=== PATIENT | male | born 1935 | race Caucasian/White ===

== ENCOUNTER 2023-08-07 14:29 | Outpatient (OUT) | payer MEDICARE, SELFPAY ==
--- NOTE | 2023-08-07 15:20 | P.CN_ITS ---
Consult Note: HPI Data of Consult Patient: new to practice Consult date: 08/07/23 Requesting Physician: Alberto Pacheco MD Primary Care Provider: JERMAIN MENCHACA Consult Narrative Reason for consult: low back, right hip and leg pain Narrative: 87yom who presents for evaluation. longstanding low back and right hip and leg pain. lumbar mri shows severe multilevel foraminal narrowing, as well as severe facet arthropathy. continues in series of provider directed home exercises >6 weeks, without benefit. uses otc pain meds. denies adverse med side effects. cc:: CC: Alberto Pacheco MD Review of Systems ROS Status of ROS 10 or more systems reviewed and unremark able except as noted in history and below Exam Narrative Exam Narrative: Psych-alert and oriented x 3. Attentive and appropriate, constitutionally normal, displays normal mood and affect per situation. There are no obvious deficits in memory, reasoning, or intellect.? Skin-no obvious rashes, bruising, erythema noted to the patient's area of pain.? Extremities- extremities are warm with minimal edema and palpable pulses. Lumbar-tenderness to palpation noted in the lumbar spine and paraspinal musculature. Pain is elicited with flexion, extension, and lateral rotation of the lumbar spine. Range of motion is diminished with these motions. Facet loading maneuvers are positive.? Strength-noted to be unremarkable with the exception of decreased strength rated at 4 out of 5 in right quadriceps femoris, anterior tibialis. Sensory-no notable sensory deficits in the bilateral lower extremities to touch or pinprick in all dermatomal distributions with the exception to decreased sensation to the right L4, 5 dermatomal distribution Sacroiliac - tender over right PSIS. Positive Eduardo's on right. Positive thigh thrust on right. Coordination remains intact.? Gait remains non-antalgic. 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 failed conservative measures, as noted. imaging reviewed, as noted. given symptoms and imaging, prudent to attempt right l4-5, l5-s1 tfesi under fluoroscopic guidance. may even benefit from right SIJ injection. he is in agreement. meds reviewed, no changes. follow up after procedure.
== END 2023-08-07 14:30 | disposition home or self-care (01) ==
LOC: PM 14:30
PROVIDERS: PCP Family Medicine; Visit Provider Anesthesiology
DX: M48.062 Spinal stenosis, lumbar region with neurogenic claudication (principal); M53.3 Sacrococcygeal disorders, not elsewhere classified; M47.816 Spondylosis without myelopathy or radiculopathy, lumbar region
CPT/HCPCS: G0463

== ENCOUNTER 2023-08-14 07:15 | Day surgery (SDC) | payer MEDICARE, SELFPAY ==
--- OUTSIDE RECORDS SUMMARY | 2023-08-14 07:18 | XMS_ITS ---
Patient Summarization (C-CDA 2.1 CCD) Created on: August 14, 2023 ENRIQUE MIKE : 1935 Sex: Male Author Organization Sample organization Care Team Providers Care [employer]f [employer] Worker Name Role Phone NIKOLAI, DR ALY Attending Unavailable NIKOLAI, DR ALY Primary Care Unavailable NIKOLAI, DR ALY Admitting Unavailable NIKOLAI, JERMAIN Blas Primary Care Unavailable KATHE MEZA Attending Unavailable ALEXUS CLINTON Admitting Unavailable AGUSTIN GARCIA Attending Unavailable AGUSTIN GARCIA Referring Unavailable NIKOLAI, JERMAIN Blas Primary Care Unavailable NIKOLAIJERMAIN Attending Unavailable ABEL SOLIS Attending Unavailable NIKOLAI, JERMAIN Blas Referring Unavailable ABEL SOLIS Attending Unavailable SANGEETA, ENRIQUE Nelson Attending Unavailable JERMAIN MENCHACA Attending Unavailable SANGEETA, ENRIQUE Nelson Attending Unavailable ENRIQUE RUTHERFORD Referring Unavailable ENRIQUE RUTHERFORD Referring Unavailable ENRIQUE RUTHERFORD Attending Unavailable Encounters Encounter Date Encounter Type Care Provider Facility Start: 08-01-2023 End: 08-01-2023 ambulatory ENRIQUE RUTHERFORD Not Available Start: 07-27-2023 End: 07-27-2023 ambulatory ENRIQUE RUTHERFORD Not Available Start: 07-11-2023 End: 07-11-2023 ambulatory ENRIQUE RUTHERFORD Not Available Start: 06-13-2023 End: 06-13-2023 ambulatory JERMAIN Blas NIKOLAI Not Available Start: 06-06-2023 End: 06-06-2023 ambulatory ENRIQUE RUTHERFORD Not Available Start: 06-01-2023 End: 06-03-2023 Emergency department patient visit AGUSTIN GARCIA [facility] Start: 06-01-2023 End: 06-02-2023 ambulatory JERMAIN Wan NIKOLAI [facility] Start: 05-04-2023 End: 05-04-2023 ambulatory ABEL SOLIS Not Available Start: 04-20-2023 End: 04-20-2023 ambulatory ABEL SOLIS Not Available Start: 04-10-2023 End: 04-10-2023 ambulatory JERMAIN MENCHACA Not Available Start: 12-17-2021 End: 12-17-2021 ambulatory JERMAIN MENCHACA Facility: Payers Date Payer Category Payer Medicare [id number] 1958 Unknown [id number] 1935 Unknown [id number] 2.16.84 [id number] 1935 Unknown [id number] 2.16.8 [id number] 1935 Unknown [id number] 2.16.8 40.1.650088.3.579.2.1286 1935 Unknown [id number] 2.16.8 40.1.935397.3.579.2.1286 1935 Unknown [id number] 2.16.84 0.1.871636.3.579.2.1259 1935 Unknown [id number] 2.16.84 0.1.879153.3.579.2.1259 1935 Unknown [id number] 2.16.84 0.1.804400.3.579.2.1259 1935 Unknown [id number] 2.16.84 0.1.312757.3.579.2.1259 1935 Unknown [id number] 2.16.84 0.1.702655.3.579.2.1259 1935 Unknown [id number] 2.16.84 0.1.954804.3.579.2.1259 1935 Unknown [id number] 2.16.84 0.1.890346.3.579.2.125 1935 Unknown [id number] 2.16.84 0.1.850724.3.579.2.1259 1935 Unknown [id number] 2.16.84 0.1.820479.3.579.2.1259 Problems Problem Classification Problem Date Documented Date Episodic/Chronic Acute cerebrovascular disease (1 source) Cerebral infarction, unspecified; Translations: [Cerebral infarction, unspecified] Onset: 06-01-2023 Chronic Acute cerebrovascular disease (2 sources) Acute cerebrovascular disease Onset: 06-01-2023 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; Translations: [Embolism and thrombosis of unspecified artery] Onset: 06-02-2023 Chronic Genitourinary symptoms and ill-defined conditions (4 sources) Retention of urine, unspecified; Translations: [RETENTION OF URINE UNSPECIFIED] Onset: 12-17-2021 Episodic Heart valve disorders (1 source) Unspecified abnormalities of heart beat; Translations: [Unspecified abnormalities of heart beat] Onset: 06-01-2023 Episodic Retinal detachments; defects; vascular occlusion; and retinopathy (1 source) Unspecified retinal vascular occlusion; Translations: [Unspecified retinal vascular occlusion] Onset: 06-01-2023 Chronic Transient cerebral ischemia (1 source) Transient cerebral ischemic attack, unspecified; Translations: [Transient cerebral ischemic attack, unspecified] Onset: 06-02-2023 Chronic Results Test Name Value Interpretation Reference Range Facility MR LUMBAR SPINE W AND WO CON TRASTon 07-27-2023 MR LUMBAR SPINE W AND WO CONTRAST EXAM: MR LUMBAR SPINE W AND WO CONTRAST History: low back pain Technique: Multiplanar multisequence MRI of the lumbar spine was obtained without intravenous contrast. Comparison: Findings: The conus medullaris ends normally. Mild levocurvature. The vertebral body heights are well maintained. There is no aggressive bone marrow signal abnormality. Postsurgical changes of posterior decompression at L3-L4 and L4-L5. No pathologic enhancement. No soft tissue or epidural fluid collection. Disc desiccation throughout the lumbar spine. Moderate intervertebral disc height loss at L4-L5 and mild intervertebral disc loss at L5-S1. Chronic severe compression deformity of L1. Multilevel degenerative plate changes with spurring. L1-L2: Small disc bulge. Mild facet arthropathy. Mild spinal canal stenosis. Moderate bilateral neural foraminal stenosis. L2-L3: Small disc bulge with small superimposed central disc protrusion. Mild facet arthropathy. Ligamentum flavum thickening. Moderate to severe spinal canal stenosis. Moderate bilateral neural foraminal stenosis. L3-L4: Minimal anterolisthesis of L3 on L4 secondary to advanced facet arthropathy. Small disc bulge. Severe bilateral neural foraminal stenosis. No spinal canal stenosis. L4-L5: Small disc bulge. Mild facet arthropathy. Moderate bilateral neural foraminal stenosis. No spinal canal stenosis. L5-S1: Small disc bulge with small superimposed central disc protrusion. Moderate facet arthropathy. Severe bilateral neural foraminal stenosis. No spinal canal stenosis. Visualized paravertebral soft tissues appear within normal limits. Round hyperintense T2 structures of both kidneys are again identified and are most patible with renal cysts. IMPRESSION: Postsurgical and degenerative changes of the lumbar spine as detailed. ELECTRONICALLY SIGNED BY: Jone Conrad, DO Normal Not Available Comment on above: Order Comment: MRI l umbar spine with and without. MYLA Lane. Pt had CMP labs 06/01/[address] [facility]. HX lumbar laminectomy 12/01/21 MR BRAIN W WO CONTon 024 MR BRAIN W WO CONT MR BRAIN W WO CONT HISTORY: An 87-year-old male with the history of the acute neurological deficit. Stroke is suspected. TECHNIQUE: Multiplanar and multisequence MRI examination of brain is performed without and with intravenous contrast administration. COMPARISON: Comparison is made with the CT scan of brain of 06/01/2023. FINDINGS: The ventricular system is normal in size and configuration. There is mild degree of generalized atrophy. There is normal differentiation of manzo and white matters. There are scattered foci of signal abnormality in the deep white matter supratentorially consistent with minimal small vessels ischemic change. Diffusion-weighted study demonstrates no evidence of restricted diffusion to suggest acute or subacute age of infarction. There is no evidence of intracranial mass, hemorrhage or acute pathology. The cerebellum and brainstem are unremarkable. No mass effect, midline shift of the structures or extra-axial fluid collections are noted. Postcontrast examination reveals no abnormal meningeal or parenchymal enhancement. Both distal internal carotid and vertebrobasilar arteries are patent. Dural venous sinuses are patent. Minimal mucosal thickening is seen in the right maxillary sinus. Other paranasal sinuses and mastoid air cells are clear. IMPRESSION: * No evidence of restricted diffusion to suggest acute or subacute age of infarction. * Mild small vessels ischemic change in the deep white matter supratentorially. * No evidence of intracranial mass, abnormal enhancing lesion or acute pathology. * Mild degree of cortical atrophy. Finalized by hPil Mcleod MD on 06/02/2023 7:34 AM Normal [facility] CBC AND AUTO DIFFon 06-01-19 24 ABSOLUTE BASOPHIL 0.0 X10E9/L Normal 0.0-0.2 [facility] Comment on above: Performed By: #### 2 4331-1 #### [facility] ([id number]) [address], [address] [place] [address] #### CMP, PINR, 73388-3, 69842-2, THYR, 93592-7, CBCA, 96375-7 #### [facility] ([id number]) [address] [place] [address] 32926 ABSOLUTE NEUTROPHIL 2.9 X10E9/L Normal 1.5-6.6 [facility] Comment on above: Performed By: #### 2 4331-1 #### [facility] ([id number]) [address] [facility] [address], [address] [place] [address] #### CMP, PINR, 10935-4, 10410-8, THYR, 52451-3, CBCA, 84048-6 #### [facility] ([id number]) [address] [place] [address] 49673 Basophils/100 WBC (Bld) 0.7 % Normal [facility] Comment on above: Performed By: #### 2 4331-1 #### [facility] ([id number]) [address], [address] [place] [address] #### CMP, PINR, 14856-3, 39549-0, THYR, 72557-3, CBCA, 43203-3 #### [facility] ([id number]) [address] [place] [address] 56084 Eosinophils (Bld) [#/Vol] 0.1 10*3/uL Normal 0.0-0.4 [facility] Comment on above: Performed By: #### 2 4331-1 #### [facility] ([id number]) [address], [address] [place] [address] #### CMP, PINR, 00661-7, 55615-1, THYR, 27286-6, CBCA, 24636-6 #### [facility] ([id number]) [address] [place] [address] 67001 Eosinophils/100 WBC (Bld) 1.5 % Normal [facility] Comment on above: Performed By: #### 2 4331-1 #### [facility] ([id number]) [address] [facility] [address], [address] [place] [address] #### CMP, PINR, 46536-2, 84426-6, THYR, 70955-9, CBCA, 10003-4 #### [facility] ([id number]) [address] [place] [address] 75818 Erythrocyte distribution width (RBC) [Ratio] 12.5 % Normal 11.5-15.0 [facility] Comment on above: Performed By: #### 2 4331-1 #### [facility] ([id number]) [address] [facility] [address] [address], [address] [place] [address] #### CMP, PINR, 40683-9, 02415-6, THYR, 20168-7, CBCA, 84992-5 #### [facility] ([id number]) [address] [place] [address] 46468 Hematocrit (Bld) [Volume fraction] 39.5 % Normal 39-49 [facility] Comment on above: Performed By: #### 2 4331-1 #### [facility] ([id number]) [address] [facility], [address] [place] [address] #### CMP, PINR, 98746-2, 18767-6, THYR, 69869-0, CBCA, 46166-1 #### [facility] ([id number]) [address] [place] [address] 02093 Hemoglobin (Bld) [Mass/Vol] 13.7 g/dL Normal 13.0-17.0 [facility] Comment on above: Performed By: #### 2 4331-1 #### [facility] ([id number]) [address], [address] [place] [address] #### CMP, PINR, 86224-4, 80022-9, THYR, 14990-3, CBCA, 96138-1 #### [facility] ([id number]) [address] [place] [address] 70233 Lymphocytes (Bld) [#/Vol] 1.6 10*3/uL Normal 1.0-3.5 [facility] Comment on above: Performed By: #### 2 4331-1 #### [facility] ([id number]) [address], [address] [place] [address] #### CMP, PINR, 22162-4, 23172-5, THYR, 77689-5, CBCA, 44770-0 #### [facility] ([id number]) [address] [place] [address] 48864 Lymphocytes/100 WBC (Bld) 30.9 % Normal [facility] Comment on above: Performed By: #### 2 4331-1 #### [facility] ([id number]) [address], [address] [place] [address] #### CMP, PINR, 42101-3, 31862-5, THYR, 82019-5, CBCA, 80331-0 #### [facility] ([id number]) [address] [place] [address] 73173 MCH (RBC) [Entitic mass] 32.8 pg Normal 27-34 [facility] Comment on above: Performed By: #### 2 4331-1 #### [facility] ([id number]) [address], [address] [place] [address] #### CMP, PINR, 16942-4, 74984-5, THYR, 68286-1, CBCA, 86805-8 #### [facility] ([id number]) [address] [place] [address] 11272 MCHC (RBC) [Mass/Vol] 34.6 g/dL Normal 32-36 [facility] Comment on above: Performed By: #### 2 4331-1 #### [facility] ([id number]) [address], [address] [place] [address] #### CMP, PINR, 94808-1, 57427-8, THYR, 49473-0, CBCA, 02880-9 #### [facility] ([id number]) [address] [place] [address] 34598 MCV (RBC) [Entitic vol] 95 fL Normal 80-100 [facility] Comment on above: Performed By: #### 2 4331-1 #### [facility] ([id number]) [address], [address] [place] [address] #### CMP, PINR, 66730-3, 27590-7, THYR, 92119-6, CBCA, 65338-9 #### [facility] ([id number]) [address] [place] [address] 30355 Monocytes (Bld) [#/Vol] 0.6 10*3/uL Normal 0-0.9 [facility] Comment on above: Performed By: #### 2 4331-1 #### [facility] ([id number]) [address], [address] [place] [address] #### CMP, PINR, 50332-6, 61196-2, THYR, 08620-7, CBCA, 44636-3 #### [facility] ([id number]) [address] [place] [address] 81038 Monocytes/100 WBC (Bld) 10.8 % Normal [facility] Comment on above: Performed By: #### 2 4331-1 #### [facility] ([id number]) [address], [address] [place] [address] #### CMP, PINR, 44878-0, 45831-3, THYR, 59323-8, CBCA, 19020-6 #### [facility] ([id number]) [address] [place] [address] 93935 Neutrophils/100 WBC (Bld) 56.1 % Normal [facility] Comment on above: Performed By: #### 2 4331-1 #### [facility] ([id number]) [address], [address] [place] [address] #### CMP, PINR, 97687-4, 64566-7, THYR, 29097-9, CBCA, 15423-7 #### [facility] ([id number]) [address] [place] [address] 17916 Platelet mean volume (Bld) [Entitic vol] 6.8 fL Low 7-12 [facility] Comment on above: Performed By: #### 2 4331-1 #### [facility] ([id number]) [address], [address] [place] [address] #### CMP, PINR, 87543-9, 61047-0, THYR, 81781-3, CBCA, 49616-3 #### [facility] ([id number]) [address] [place] [address] 12822 Platelets (Bld) [#/Vol] 206 10*3/uL Normal 150-450 [facility] Comment on above: Performed By: #### 2 4331-1 #### [facility] ([id number]) [address], [address] [place] [address] #### CMP, PINR, 02219-1, 85267-1, THYR, 21182-8, CBCA, 98101-2 #### [facility] ([id number]) [address] [place] [address] 03024 RBC COUNT 4.17 X10E12/L Normal 4.10-5.70 [facility] Comment on above: Performed By: #### 2 4331-1 #### [facility] ([id number]) [address], [address] [place] [address] #### CMP, PINR, 20470-2, 79114-0, THYR, 27465-4, CBCA, 89309-0 #### [facility] ([id number]) [address] [place] [address] 52498 WBC (Bld) [#/Vol] 5.1 10*3/uL Normal 4.0-11.0 [facility] Comment on above: Performed By: #### 2 4331-1 #### [facility] ([id number]) [address], [address] [place] [address] #### CMP, PINR, 15690-1, 87387-5, THYR, 07024-3, CBCA, 03857-1 #### [facility] ([id number]) [address] [place] [address] 11964 COMPREHENSIVE METABOLIC PANE Kory 06-01-2023 Albumin [Mass/Vol] 4.5 g/dL Normal 3.2-5.3 [facility] Comment on above: Performed By: #### 2 4331-1 #### [facility] ([id number]) [address], [address] [place] [address] #### CMP, PINR, 45325-3, 28016-5, THYR, 13063-7, CBCA, 38948-2 #### [facility] ([id number]) [address] [place] [address] 08508 ALP [Catalytic activity/Vol] 56 U/L Normal 39-130 [facility] Comment on above: Performed By: #### 2 4331-1 #### [facility] ([id number]) [address], [address] [place] [address] #### CMP, PINR, 18652-6, 12127-3, THYR, 27927-9, CBCA, 18668-4 #### [facility] ([id number]) [address] [place] [address] 88531 ALT [Catalytic activity/Vol] 26 U/L Normal 0-40 [facility] Comment on above: Performed By: #### 2 4331-1 #### [facility] ([id number]) [address] [facility] [address] [address], [address] [place] [address] #### CMP, PINR, 94849-3, 35037-6, THYR, 64754-7, CBCA, 69805-3 #### [facility] ([id number]) [address] [place] [address] 27225 Anion gap [Moles/Vol] 3 mmol/L Low 5-15 [facility] Comment on above: Performed By: #### 2 4331-1 #### [facility] ([id number]) [address], [address] [place] [address] #### CMP, PINR, 84075-9, 53476-7, THYR, 32323-1, CBCA, 74071-4 #### [facility] ([id number]) [address] [place] [address] 87955 AST [Catalytic activity/Vol] 32 U/L Normal 0-41 [facility] Comment on above: Performed By: #### 2 4331-1 #### [facility] ([id number]) [address], [address] [place] [address] #### CMP, PINR, 62086-8, 44454-8, THYR, 94683-9, CBCA, 02909-3 #### [facility] ([id number]) [address] [place] [address] 48402 Bilirubin [Mass/Vol] 0.8 mg/dL Normal 0.3-1.2 [facility] Comment on above: Performed By: #### 2 4331-1 #### [facility] ([id number]) [address] [facility], [address] [place] [address] #### CMP, PINR, 98091-4, 38458-8, THYR, 34085-0, CBCA, 86874-1 #### [facility] ([id number]) [address] [place] [address] 41577 Calcium [Mass/Vol] 8.8 mg/dL Normal 8.5-10.5 [facility] Comment on above: Performed By: #### 2 4331-1 #### [facility] ([id number]) [address] [facility], [address] [place] [address] #### CMP, PINR, 85176-3, 16145-4, THYR, 95709-3, CBCA, 74438-5 #### [facility] ([id number]) [address] [place] [address] 62897 Chloride [Moles/Vol] 104 mmol/L Normal 98-109 [facility] Comment on above: Performed By: #### 2 4331-1 #### [facility] ([id number]) [address] [facility] [address], [address] [place] [address] #### CMP, PINR, 98819-2, 06510-6, THYR, 29731-7, CBCA, 10902-6 #### [facility] ([id number]) [address] [place] [address] 68653 CO2 [Moles/Vol] 27 mmol/L Normal 22-32 [facility] Comment on above: Performed By: #### 2 4331-1 #### [facility] ([id number]) [address], [address] [place] [address] #### CMP, PINR, 27151-7, 56174-7, THYR, 23401-1, CBCA, 64476-7 #### [facility] ([id number]) [address] [place] [address] 22288 Creatinine [Mass/Vol] 1.25 mg/dL High 0.70-1.20 [facility] Comment on above: Result Comment: METH OD TRACEABLE TO IDMS STANDARD Performed By: #### 2 4331-1 #### [facility] ([id number]) [address] [facility], [address] [place] [address] #### CMP, PINR, 24764-2, 69125-5, THYR, 41484-2, CBCA, 07579-4 #### [facility] ([id number]) [address] [place] [address] 63571 GFR/1.73 sq M.predicted among non-blacks MDRD (S/P/Bld) [Vol rate/Area] 56 mL/min/{1.73_m2} Low >59 [facility] Comment on above: Result Comment: Reported eGFR is based on the CKD-EPI 2020 equation that does not use a race coefficient. Performed By: #### 2 4331-1 #### [facility] ([id number]) [address], [address] [place] [address] #### CMP, PINR, 24814-7, 25816-8, THYR, 99465-8, CBCA, 53831-3 #### [facility] ([id number]) [address] [place] [address] 91870 Glucose [Mass/Vol] 104 mg/dL High 65-99 [facility] Comment on above: Performed By: #### 2 4331-1 #### [facility] ([id number]) [address], [address] [place] [address] #### CMP, PINR, 42246-5, 06767-4, THYR, 71972-3, CBCA, 10310-5 #### [facility] ([id number]) [address] [place] [address] 14328 Potassium [Moles/Vol] 4.3 mmol/L Normal 3.5-5.0 [facility] Comment on above: Performed By: #### 2 4331-1 #### [facility] ([id number]) [address], [address] [place] [address] #### CMP, PINR, 38818-0, 47648-6, THYR, 31928-0, CBCA, 26996-4 #### [facility] ([id number]) [address] [place] [address] 78690 Protein [Mass/Vol] 7.3 g/dL Normal 6.0-8.0 [facility] Comment on above: Performed By: #### 2 4331-1 #### [facility] ([id number]) [address], [address] [place] [address] #### CMP, PINR, 34282-0, 69867-1, THYR, 72307-7, CBCA, 38473-0 #### [facility] ([id number]) [address] [place] [address] 14437 Sodium [Moles/Vol] 134 mmol/L Normal 134-146 [facility] Comment on above: Performed By: #### 2 4331-1 #### [facility] ([id number]) [address] [place] [address] #### CMP, PINR, 38366-4, 37810-1, THYR, 66810-3, CBCA, 28825-4 #### [facility] ([id number]) [address] [place] [address] Urea nitrogen [Mass/Vol] 24 mg/dL Normal 5-27 [facility] Comment on above: Performed By: #### 2 4331-1 #### [facility] ([id number]) [address] [facility], [address] [place] [address] #### CMP, PINR, 19424-9, 98525-9, THYR, 10977-6, CBCA, 28906-7 #### [facility] ([id number]) [address] [place] [address] CT BRAIN WO CONT STROKE ALER Ton 06-01-2023 CT BRAIN WO CONT STROKE ALERT CT BRAIN WO CONT STROKE ALERT Examination: Noncontrast brain CT Date of Exam:06/01/2023 Clinical History:Right vision loss Comparison:None Procedure: Multi-detector CT performed through the brain without IV contrast. Automatic exposure control (AEC) was utilized. Findings: There is no intracranial hemorrhage, extra-axial fluid collection, mass effect, or hydrocephalus. Manzo-white matter differentiation is appropriate. Infarcts may be occult on CT, but grossly no acute infarct identified There is no midline shift. IMPRESSION: 1. No acute findings. All CT scans at this facility use dose modulation, iterative reconstruction, and/or weight based dosing when appropriate to reduce radiation dose to as low as reasonably achievable. Finalized by Gerardo Camacho MD on 06/01/2023 4:12 PM Normal [facility] CT CTA CAROTIDon 06-01-[address] CTA CAROTID CLINICAL HISTORY: An 87-year-old male with the history of the vision loss in the right eye. Stroke is suspected. TECHNIQUE: Multidetector spiral CT scan of the neck is performed by using CT angiogram protocol. The patient received 100 mL of Omnipaque 350 intravenously. Coronal and sagittal and 3-D volume rendered maximum intensity projection images generated on separate workstation. All CT scans at this facility use dose modulation, iterative reconstruction, and/or weight based dosing when appropriate to reduce radiation dose to as low as reasonably achievable. NOTE: The [place] Symptomatic Carotid Endarterectomy Trial (NASCET)calculation of ICA stenosis percentage using the following formula with a threshold of 60 to 70%: % ICA stenosis = (1 - [narrowest ICA diameter/diameter normal distal cervical ICA]) x 100 COMPARISON: Comparison is made with the CT scan of the brain of 06/01/2023. FINDINGS: CT angiogram reveals normal caliber of the aortic arch. The right innominate, left common carotid and left subclavian arteries are patent without evidence of aneurysm or significant stenosis. The right common carotid and right subclavian arteries are patent. There are vascular calcifications. Both cervical vertebral arteries are patent without evidence of significant stenosis or dissection. Minimal calcifications are seen. At both carotid bifurcations, there are calcified atherosclerotic disease without evidence of hemodynamically significant stenosis. Both cervical internal carotid arteries are patent without evidence of dissection or significant stenosis. There are diffuse degenerative changes in the cervical and thoracic spine and spinal fusion at C5-C6. IMPRESSION: 1. Calcified atherosclerotic disease at both carotid bifurcations without hemodynamically significant stenosis. 2. Both cervical vertebral arteries are patent. 3. Great vessels of the aortic arch are patent without evidence of aneurysm or significant stenosis. There are vascular calcifications. Finalized by Phil Mcleod MD on 06/01/2023 4:19 PM Normal [facility] CT CTA HEADon 06-01-[address] CTA HEAD CT angiogram head with contrast History: Stroke. Neurologic deficit. Vision loss in the right eye. Technique: CT angiogram of the head was performed following intravenous administration nonionic intravenous contrast. 3-D maximum intensity projection images generated and reviewed under concurrent physician supervision. Arterial blood flow was measured to assist the stroke clinical team in the diagnosis of large vessel occlusion in patients undergoing screening for acute ischemic stroke using Rapid Critical Links software when clinically indicated. Automated exposure control was utilized. All CT scans at this facility dose modulation, iterative reconstruction, and/or weight based dosing when appropriate to reduce radiation dose to as low as reasonably achievable. Findings: Intracranial internal carotid arteries: Mild scattered atherosclerotic ossification without significant stenosis. Anterior cerebral arteries: Within normal limits. Middle cerebral arteries: Within normal limits. Posterior to indicating artery: Diminutive. Intracranial vertebral arteries: Within normal limits. Basilar artery: Within normal Posterior cerebral arteries: Within normal limits. No large vessel intracranial arterial stenosis, occlusion, or aneurysmal dilatation. Impression: Unremarkable CTA head. Finalized by Jaspal Agustin MD on 06/01/2023 4:19 PM Normal [facility] Fibrin D-dimer DDU (PPP) [Ma ss/Vol]on 06-01-2023 D DIMER 364 ng/mL DDU High <255 [facility] Comment on above: Result Comment: Results >=255ng/mL DDU: Results may be indicative of the presence of VTE. The use of the Wells score and further diagnostic tests should be considered. Elevated D-Dimer levels can also be associated with DIC, neoplasm, , trauma and liver disease. Elevated levels of rheumatoid factor may lead to an overestimation of the D-Dimer level. Performed By: #### 2 4331-1 #### [facility] ([id number]) [address] [facility], [address] [place] [address] #### [place], PINR, 06727-8, , THYR, 16536-1, CBCA, 29331-6 #### [facility] ([id number]) [address] [place] [address], [place] [address] Glucose Glucometer (BldC) [M ass/Vol]on 06-01-2023 Glucose [Mass/Vol] 106 mg/dL High 65-99 [facility] HGB A1C (GLYCO-HGB)on 2023 Glucose [Mass/Vol] 111 mg/dL Normal [facility] Comment on above: Performed By: #### 2 4331-1 ####[facility] ([id number])[address] [facility], [address], [place] [address]#### CMP, PINR, 05746-3, 42108-0, THYR, 37461-6, CBCA, 75552-7 ####[facility] ([id number])[address] [place] [address] HbA1c (Bld) [Mass fraction] 5.5 % Normal 4.4-5.6 [facility] Comment on above: Result Comment: NOTE ADA Guidelines Result HgbA1c Normal : less than 5.7 % Prediabetes : 5.7 % to 6.4 % Diabetes : > 6.4 % Use with caution in patients with abnormal hemoglobin variants as the half-life of red blood cells and in vivo glycation rates are affected. Performed By: #### 2 4331-1 ####[facility] ([id number])[address] [facility], [address] [address]#### CMP, PINR, 96932-5, 92914-5, THYR, 62816-3, CBCA, 02527-6 ####[facility] ([id number])[address] [place] [address] Lipid 1996 panelon 4 Cholesterol [Mass/Vol] 169 mg/dL Normal 150-200 [facility] Comment on above: Performed By: #### 2 4331-1 ####[facility] ([id number])[address], [address] [address]#### CMP, PINR, 55622-8, 40084-5, THYR, 70464-7, CBCA, 60728-4 ####[facility] ([id number])[address] [place] [address] Cholesterol in HDL [Mass/Vol] 40 mg/dL Normal >39 [facility] Comment on above: Result Comment: HDL <40 mg/dL - High Risk HDL > or = 40mg/dL- Desirable HDL >60 mg/dL - Negative Risk Performed By: #### 2 4331-1 ####[facility] ([id number])[address], [address] [place] [address]#### CMP, PINR, 85724-5, 85674-6, THYR, 54757-6, CBCA, 60446-0 ####[facility] ([id number])[address] [place] [address] Cholesterol in LDL [Mass/Vol] 69 mg/dL Normal <130 [facility] Comment on above: Result Comment: LDL <100 mg/dL - Desirable LDL >160 mg/dL - High Risk Performed By: #### 2 4331-1 ####[facility] ([id number])[address], [address] [place] [address]#### CMP, PINR, 14207-4, 63392-6, THYR, 34882-1, CBCA, 92033-4 ####[facility] ([id number])[address] [place] [address] Cholesterol in VLDL [Mass/Vol] 60 mg/dL High 0-30 [facility] Comment on above: Performed By: #### 2 4331-1 ####[facility] ([id number])[address], [address] [place] [address], [place] [address]#### CMP, PINR, 58745-5, 39920-5, THYR, 31505-2, CBCA, 56226-4 ####[facility] ([id number])[address] [place] [address] CHOLESTEROL:HDL 4.2 Normal 1.0-5.0 [facility] Comment on above: Performed By: #### 2 4331-1 ####[facility] ([id number])[address], [address] [place] [address]#### CMP, PINR, 16709-2, 04619-8, THYR, 14808-8, CBCA, 59313-9 ####[facility] ([id number])[address] [place] [address] Triglyceride [Mass/Vol] 301 mg/dL High 27-150 [facility] Comment on above: Performed By: #### 2 4331-1 ####[facility] ([id number])[address] [facility], [address] [place] [address]#### CMP, PINR, 84731-0, 53199-5, THYR, 52294-1, CBCA, 52017-5 ####[facility] ([id number])[address] [place] [address] MAGNESIUMon 06-01-2023 Magnesium [Mass/Vol] 2.0 mg/dL Normal 1.8-2.6 [facility] Comment on above: Performed By: #### 2 4331-1 #### [facility] ([id number]) [address] [facility], [address] [place] [address] #### CMP, PINR, 56961-6, 67435-9, THYR, 83010-2, CBCA, 06334-9 #### [facility] ([id number]) [address] [place] [address] PROTIME AND INRon 06-01-2023 INR Coag (PPP) [Relative time] 1.0 {INR} Normal 0.8-1.1 [facility] Comment on above: Performed By: #### 2 4331-1 #### [facility] ([id number]) [address], [address] [place] [address] #### CMP, PINR, 77270-4, 43243-5, THYR, 71008-4, CBCA, 65665-6 #### [facility] ([id number]) [address] [place] [address] PT Coag (PPP) [Time] 11.5 s Normal 9.8-13.2 [facility] Comment on above: Result Comment: NEW REFERENCE RANGE Performed By: #### 2 4331-1 #### [facility] ([id number]) [address] [facility], [address] [place] [address] #### CMP, PINR, 60791-3, 31200-6, THYR, 78879-3, CBCA, 18022-5 #### [facility] ([id number]) [address] [place] [address] THYROID PROFILEon 06-01-2023 Free T4 [Mass/Vol] 0.95 ng/dL Normal 0.61-1.60 [facility] Comment on above: Performed By: #### 2 4331-1 ####[facility] ([id number])[address] [facility], [address] [address]#### CMP, PINR, 69610-2, 55893-3, THYR, 29959-2, CBCA, 93306-0 ####[facility] ([id number])[address] [place] [address] TSH 1.43 uIU/mL Normal 0.49-4.67 [facility] Comment on above: Performed By: #### 2 4331-1 ####[facility] ([id number])[address] [facility], [address] [place] [address]#### CMP, PINR, 05174-0, 23603-5, THYR, 01291-2, CBCA, 08772-1 ####[facility] ([id number])[address] [place] [address] Troponin I.cardiac High sens itivity method [Mass/Vol]on 06-01-2023 1 HOUR TROP I, HIGH SENSITIVITY 9 ng/L Normal <21 [facility] Comment on above: Performed By: #### 8 9579-7 ####[facility] ([id number])[address] [place] [address] TROPONIN I, HIGH SENSITIVITY 9 ng/L Normal <21 [facility] Comment on above: Performed By: #### 2 4331-1 #### [facility] ([id number]) [address] [place] [address], [address] [place] [address] #### CMP, PINR, 85959-9, 46942-6, THYR, 69851-9, CBCA, 27706-1 #### [facility] ([id number]) [address] [place] [address] aPTT Coag (PPP) [Time]on aPTT Coag (Bld) [Time] 30 s Normal 26-37 [facility] Comment on above: Result Comment: NEW REFERENCE RANGE Performed By: #### 2 4331-1 ####[facility] ([id number])[address] [place] [address], [address] [place] [address]#### CMP, PINR, 28957-6, 70946-0, THYR, 01571-3, CBCA, 66340-0 ####[facility] ([id number])[address] [place] [address] Provider Orderson 07-28-2021 Provider Orders [id number] .[facility] Consent Formson 07-09-2021 Consent Forms [id number] .00[facility] MAGR Preoperative Recordon 0 07-02-2021 MAGR Preoperative Record MAGR Pre-Op Record Summary Primary Physician: Enrique Rutherford DO Finalized Date/Time: 07/02/21 15:05:59 Pt. Name: ENRIQUE MIKE Chrissie Luther./Sex: 1935 MALE Med Rec #: [id number] Physician: Enrique Rutherford DO Financial #: [id number] Pt. Type: O Room/Bed: 221/1 Admit/Disch: 06/21/21 05:54:00 - 06/22/21 12:10:00 Institution: Pre-Op Case Times MAGR Pre-Care Text: Patient will be optimally prepared for surgery. Patient is free from s/s of injury. Provide information to patient/family related to plan of care. Verify patient allergies. Confirm identity and verify consent before the operative or invasive procedure. Entry 1 Patient Arrival Time 06/21/21 06:02:00 Preop Departure 06/21/21 07:27:00 Last Modified By: Daphnie Barr RN 06/21/21 07:34:17 Post-Care Text: Patient is prepared mentally and physically and is ready for surgery. The patient remains free from s/s of injury. Patient/family express understanding of plan of care and participate in decisions affecting his or her perioperrative plan of care. Allergies documented appropriately. Patient identifiers and consent correct. General Comments: Reviewed for the next 24 hours not to do anything that requires concentration. Denies chest pain, shortness of breath or illnessess. Denies pacemaker/defib. Denies sleep apnea. Finalized By: Isabela Soliman RN Document Signatures Signed By: Isbaela Soliman RN 07/02/21 15:05 [facility] Coding Summaryon 06-28-2021 Coding Summary HTMLBase 64 SfglkwzmLWc7rEb+PGhlY WQ+QW5YSPNcW91giOUnfL 0FM0aVAC7DEXCMWDBGPX4 DDF0byCT0WBdsQ2XkkrDi OfnaqDKyKA48UPt5UWG9l LvqEVreoO5osNZfW6t3Sv HfKJ20oQ50UXkuJWApDkW 3LjZpbjsgbWFy D0pxYbFqdXAaVbn+PHRhY mxlIHdpZHRoPScxMDAlJy FacVysIU9cIy1hGSDfUJS vbGxhcHNlOiBj v7hlJEBoDIakLC8cqFqjX 3PffFT7KMMrs4p5Gd25xT I+XGAkYCI4eCknXVrhl86 2TuJlx4kyFBF7 zZUoDIdcXZV4X49ch0R8U MQqBFCqBSP2pIK3cP3ndS vraooaA8HcrNYtLjJ8RAZ 0bCVdoU9nuZic dcpnfF2jXms+Y06TVJ6SK GYQPJ7TOhs3A0IkPaevsN I+CU91CZHmRF29bUOzhXU fj3hvzHb8IaSp EUKzIYQ6eOyuTEmbz8NgC HVyE26tsQUlh5C9YRDkqA ykyDQkMvYecXZ6jP5lKPq zhrquq7ijimwa Aefvt4dqmj16fL73F19aL LxjQFNtZXJ7MBHgZMSgcE hhnx1ybS3zAy6+EZhto4m xv7iswHw2CjVo BRWwgjHelVyoAED0d4GlQ l37C3JxgCqow8UiXax6je 21eNNdl2Q5jTA8LUtqTSG xbJ1nFXroHjK4 FQSkEmWxfA66rHIqQCiuZ u4lsNshmJqdBB7sFIGkyj ybVTKlaQ7uZVAkuIBqjXo vDG1cYRVqwljd g241UeTqBVY6YALgrRFgA 2DllV6zFsClAXGwCYGzH4 WhrWQmSTlyS345YFqcBlY 2NTUodyEvB7Bf YJMkcPfiEeA2l6H9Nr8Pc 9HxmnmbHTG0GFfsPTN6Gc S6QcNnLbP0G6SdIuy5HZY fbZelRM3mI9Wh ZCQjpladnfsebMG5XEAaX WUsmG41bXNlWYmuMv3fc2 I5k586JADsRVJzdB48Cb7 udDogMTBwdCBU tW3kmlstp9gfxzdgYjPnC TXnLDt4UDx9RRDscUevXg EwMDR4KbS5MYE6vKDvvF9 jaVxgxjdeqH3n Oyc+C29tpL3wEAR6KWB9b tdiPUItnjJhKN58OT12X9 RyPjwvdGFibGU+PGRpdiB ywIbiIF8oTnLf g1sky4OrULktC7JsAPJsV KpwDau3RRUwACD0iDO7bU 4fWPVyRVbrq2F6rVX7V5B yhkNfbh8mh1ll HNWxGGheG78qqIGyf3H3W WGesNO3JKApoYvaDjNtwQ 93Oyc+RCZytNdhj9FqCnf tg3vau1hljXi3 DzAvCSDqsuPxtFmkVKM7o 5CfLm80M79hERjuFODmSB PpFTCpAQKarBimtz8ceE3 wIi8+PGNvbCB3 kKS4rX9eANGlTzB0KMskV 062QdPuyUUqTwnnd1iak4 qqdAo6YnTlVXIodkVdqLv tXJU0x7CxWk53 E25lGLfnMWQtWLTyLQRbV DYmhMxdrp4ayV5iZm7+PC 5ea4urhh99yT30vJT+PHR hAPM2oEyaDBdn JPXckD2rQJniGrE3IAOmD oKwhD76jWNjOThnDe1maJ acsUowRT9uQGGxtccwz51 7BqUyz4gwVFWq hRDnLQdxHVQ3V80qr1D2D FInSFVdJXO3rDH2uB8xxQ lnbjogbGVmdDsgdmVydGl xJJslHUcaE677 IHRvcDsnPlBhdGllbnQgT fVpZXb5K2IsCod7LOMaeH hsVT2muIGiJSurWd9lhBo fsKvyJM9lCXCd qeqjt297KpJvi3naQZMjj KHjPXniKCI2S74oc7A6VL XxNZAzSZV0qUN3dU2lpZr nbjogbGVmdDsg hqVvaVhdUQwoSWdnQ791R HRvcDsnPkJpcnRoIERhdG F0UM40AU15iVTsa9Y2bWK 0G8QbWTYlmelz umwkoOA8ZOYgGTVpnX62F k7owYqzXs9tVRRuKHI9TD JgdYGiF4QetP6kTyIyDNC bFMNhP8UfbVAg XEnmA165BJnjPtG7QVSut aFhL1TpTIRrmVqdXhF1i0 N3Bq9RU1V0NG61DR04mIN uz0T8sND2Z6Kc ZPEfnrzvztcsdKP2OLNqY FRuqI84Vu3qoWmcMb1wMZ PhXFP0LHMzcSJnF2OoqN9 yOiAjMDAwMDAw H8NmeXRgTOxhL514YBneI cI0EAXmtpOuL0IeGVBpcD bsYqQ8c9C0Ah0YCTd6XK1 3LR17dDIza2K3 kPY8K3RmGWXcwcgzejzkk IE4TCBcSFAcdQ16Wp7mbA uyYe4kCPTnWWM3KOJlcVO vH5OjtJ0rCrOq UMIhTOZoS7YdqGLaLDyzT 003LOylDtD7SAPducBeC5 GhXLFndArzOxQ1z7Y6It5 REWQlXX29QDE0 tAF2HD05EE99Q2XwDgcgw GFibGU+PHRhYmxlIHdpZH RoPScxMDAlJyBzdHlsZT0 dAg4gKMCzTKHl dBaybBDqRpDmt9urMCWxH NinMU1vlVewQ6RrjVD3RP Jnc1y1Xi22U45mQ2YdgHE +WGOqfCN7wYN3 sM2vRbOcOkA4NFgtS945L hZshIExPmmyd1uqn9ypyK s3GdD6ZQTvodDfwPioQPS 6a4UaTq22F88a IHdpZHRoPSIxNSUiIHZhb Pmsoe2xjF3mPw2+PGNvbC F9bHO6vI2xKhRsOwB3KCp gF879UdAgiMDx Ljkyp8ljm0gcaJj5NfPbA BObizAspAdsRYH3c3MeNb 84U6IznRoje5XjNxk1yb1 4bJCso2G4bAJ0 D3WwQWCmlybphHGlgNwoW Y7uXBLbdlxzTVAwjD2qNI XcM8x1EnDaLeR3OEmjV7O mvqI7CHCpyHWj ARcyDMZ3U85lm5F8XUAvD MTwTCF5wJY5yW9lfEuapr ogbGVmdDsgdmVydGljYWw sWUzaX344HVDp kHawXJUvmB8wKXMrzTJli WauNE9wWVIjcelxYtWJXd JzUZsHHVCECZC9R4GoLup 8DRUpsTfaNH2u vOQeXCqiIv5roAfenKfdC J8kWZFgfdkkLXYduA2wZH CwbOHoxCgtZE1zIWZnlgp cw371MtYiZZX1 XRDuxTIsR3TmrT3aClOnH SCpMROeG3HqrKGhTFxwO1 15OUsyRdA2GHHiuqRkB4X sLWFsaWduOiB0 u2U5Wm1rXd6vJL3mQWI6O G44DW11zFKij5F9dIV4L4 FoTHFqnkjearkrsGI4JZP eQXDcfS32iSCq SBtbSx1pt0H7a990WKBjD DPweT66Um7spGiiRGCerD OJwX4mmckoj9yndrjsIdY uTNKxZSf7DUs2 PVGatBvlAfOlGVZ6WdY8E MS5dRDyaX4esWrmxvdheM 9wOyc+OBCuZLFpquM4X5Z lYcx7FJHszPhp MG7zbEQkDHvlWi5inPcdr OjnOU2uEXKdktxbWDXyyF 1wJXXjaFAghXrsCU4kCXO hxmvzo975OuQv RXB3WVGkpZAiT7EosV2bK dRhJNRvSMYnJ1LvdNCxZB wrF013KCfaYpM6LJNiqgH bD9FiHAKidGdx OrJ7n8L7St6FKOuLSS91Z H60rJNkx8K8kVL7Q9BmUU SxxoijzstujFX4OZAwAGO gnC73tSClLXiz Kz8vr4X1t783LCQqZWBqk V87Vd7sdUjsCBNlhCYXfZ 9mratsa6oqfnosBzKkRZQ gFCe7SVr7OWUw zAtkPsYoKKJ9RmU8FCV8t YOltL6idMfjdgfkwK8lIh c+U6NxRCJ9CTVnv339Z5U kPjwvdHI+PC90 EAUvTR25rXStiYWyh2ywj Zr2TcBvWMOiUAW0rKueMI cyv3EiWHSrQ41xgJAee1I 6IGNvbGxhcHNl YuWphVW8tM7eSEsputidb 3mpxyvmIsoyv5mzjs65bF 80H08kLVamCXHiECWeWYZ tEAIgzWrjmy3e bM0lFg2+GGMjhKJ9nMR1h Z8tZdKuJuV1XSwyR489Nq HfyIHdSdiqr5jdr0dnpZk 9IjIwJSIgdmFs qUepDGJ3p4GnOm49U27lV HdpZHRoPSIyMCUiIHZhbG yzro9leS0lHb4+TO9pi5n aei19nX47xSU+ RLHlTLT6rKgnDJnhOVCyp U5sSNheSgO3CDIdTwRdyW 31yOAyLHwdXs8prAswsBg jOJ7vXPAqoiye m575BiLck3vxZGZlmDWxB ArwLGJ6S29em7L5IJStMH WyKJF5fOA1xB7wqHtysaf gbGVmdDsgdmVy gOfaJXuoQErpW625FMWym VklJiYcnMIbI7igolXGJO 1lOjwvdGQ+PIOqOUQ0tPb nXJzmGTBshA3t KGChS2i9YpCeFoY9HDrpV 4IiryP5UUEcgSHpPCJhoG AZwM5jdmvni9uguxapXxJ nKAFzFJd8IOk0 GDRuzEclAzPdLVI6OyY0F DF2lWOnsU8puYiivibjaL 9wOyc+RklOOjwvdGQ+PHR tZIF9jMtnBJvm QFJrzY3wUTLqF8w6BhTvH uL5YIisL3UkccY0OYJoaV VfCJNnlNPIjJ6bzvvlv7e vcjogIzAwMDAw XNd8ZFj0BGLtuBudHcSqB QK1HpU5BCA1kJYqsM4rsI isafinwI3uEpi+TVJOOjw vdGQ+PHRkIHN0 wJjoQBzmCPMfvE4lLDHlM 9i4KgSvFnB2LYdoL8Xsvc D6NKYdxOIrJCKhaSYAiW9 vvltgi7xgxvwm OaLoODOdBJu9IMw7VSAmm TvcPqAtNJU3NpA3TFX3dO PfvS7tqZngcgwruW6qDwg +EOA1OZD4NP02 NA56E0GvNiacsMLwtUK+P HRhYmxlIHdpZHRoPScxMD UwIxNzsBevEY2kSo3tCBE yLWNvbGxhcHNl OiB (more content not included)... [facility] Consent Formson 06-23-2021 Consent Forms [id number] .00[facility] Discharge Instructionson Discharge Instructions [id number] .00[facility] Telemetry Stripson Telemetry Strips [id number] .00[facility] Consultation/Specialist Note on 06-22-2021 Consultation/Specia list Note Patient: ENRIQUE MIKE Age: 85 years Sex: MALE : 1935 Associated Diagnoses: None Author: BIB SCHMIDT Basic Information 1 day s/p LT TSA (06/21/20) Subjective pt notes he is doing well, he is hoping to go home this morning, eating and drinking without issues Review of Systems denies chest pain, shortness of breath and nausea Health Status Allergies: Allergic Reactions (All) No known allergies Objective dressing to the left shoulder is clean dry and intact, kryo cuff on with arm sling Impression and Plan d/c home today, f/u in 7-10 days of surgery [Electronically Signed on: 06/22/2021 07:09 EDT] BIB SCHMIDT [Verified on: 06/22/2021 07:09 EDT] BIB SCHMIDT [facility] Inpatient Patient Summaryon 06-22-2021 Inpatient Patient Summary [place] [id number] Patient Discharge Instructions Name: ENRIQUE MIKE : 1935 Patient Address: [address] [place] [address] Primary Care Provider: Name: JERMAIN MENCHACA MD After you are discharged if you find you have any questions, please, call [phone] ext [phone] to speak to a nurse. Discharge Diagnosis: Osteoarthritis of left shoulder; Other specific arthropathies, not elsewhere classified, left shoulder; Rotator cuff tear arthropathy of left shoulder Prescription Information: If you have been given a prescription for narcotics, seek immediate medical attention if you have any difficulty breathing or any sudden status changes such as confusion and sleepiness. If you or anyone you know is experiencing suicidal thoughts, mental health, alcohol and/or drug addiction problems; contact the [facility] 12/09 Crisis Hotline -Text 4HOYH to 948908. If you received any narcotics, sedation, or any other medication that causes drowsiness for the next 24 hours, unless otherwise directed: ? Do not drive a car. ? Do not operate machinery such as power tools, lawn mowers, drills, sewing machines, or stoves ? Avoid alcoholic beverages and drugs for allergies, nerves, or sleep ? Do not make important personal or business decisions or sign any legal documents [facility] would like to thank you for allowing us to assist you with your healthcare needs. The following includes patient education materials and information regarding your injury/illness. ENRIQUE MIKE has been given the following list of follow-up instructions, prescriptions, and patient education materials: Follow-up Instructions With: Address: When: Enrique Rutherford [address] [place] [address], [address] [place] [address] Business (1) 06/29/2021 10:45 AM Medications During the course of your visit, your medication list was updated with the most current information. The details of those changes are reflected below: Medications That Were Updated - Follow Below Instructions Other Medications Updated: levothyroxine (levothyroxine 100 mcg (0.1 mg) oral tablet) 1 tab(s) Oral Monday, Monday, Monday, Monday, . Medications to Continue That Have Not Changed Other Medications aspirin (Aspir-Low 81 mg oral delayed release tablet) 1 tab(s) Oral every day. docusate (docusate sodium 100 mg oral capsule) 1 cap(s) Oral every day as needed for constipation. ferrous sulfate (FeroSul 325 mg (65 mg elemental iron) oral tablet) 1 tab(s) Oral every day. lisinopril (lisinopril 5 mg oral tablet) 1 tab(s) Oral every day. lovastatin (lovastatin 20 mg oral tablet) 1 tab(s) Oral every day. meloxicam (meloxicam 15 mg oral tablet) 1 tab(s) Oral every day. multivitamin with minerals (PreserVision AREDS 2) 2 tab(s) Oral every day. omega-3 polyunsaturated fatty acids (Fish Oil 1000 mg oral capsule) 1 cap(s) Oral every day. oxyCODONE (oxyCODONE 5 mg oral tablet) 1 tab(s) Oral Every 6 hours as needed for pain. Template Non-Formulary (citrus bioflavonoid) 1 tab(s) Oral every day. Template Non-Formulary (prostate force factor) 2 tab(s) Oral every day. Template Non-Formulary (prostate force factor) 1 tab(s) Oral At bedtime. ubiquinone (CoQ10 100 mg oral capsule) 200 Milligram Oral every day. It is important to always keep an active list of medications available so that you can share with other providers and manage your medications appropriately. As an additional courtesy, we are also providing you with your final active medications list that you can keep with you. aspirin (Aspir-Low 81 mg oral delayed release tablet) 1 tab(s) Oral every day. docusate (docusate sodium 100 mg oral capsule) 1 cap(s) Oral every day as needed for constipation. ferrous sulfate (FeroSul 325 mg (65 mg elemental iron) oral tablet) 1 tab(s) Oral every day. levothyroxine (levothyroxine 100 mcg (0.1 mg) oral tablet) 1 tab(s) Oral Monday, Monday, Monday, Monday, . lisinopril (lisinopril 5 mg oral tablet) 1 tab(s) Oral every day. lovastatin (lovastatin 20 mg oral tablet) 1 tab(s) Oral every day. meloxicam (meloxicam 15 mg oral tablet) 1 tab(s) Oral every day. multivitamin with minerals (PreserVision AREDS 2) 2 tab(s) Oral every day. omega-3 polyunsaturated fatty acids (Fish Oil 1000 mg oral capsule) 1 cap(s) Oral every day. oxyCODONE (oxyCODONE 5 mg oral tablet) 1 tab(s) Oral Every 6 hours as needed for pain. Template Non-Formulary (citrus bioflavonoid) 1 tab(s) Oral every day. Template Non-Formulary (prostate force factor) 2 tab(s) Oral every day. Template Non-Formulary (prostate force factor) 1 tab(s) Oral At bedtime. ubiquinone (CoQ10 100 mg oral capsule) 200 Milligram Oral every day. Take only the medications listed above. Contact your doctor prior to taking any medications not on this list. Medication mariana (more content not included)... [facility] Postoperative Record [facility] Phase II Record Summary Primary Physician: Enrique Rutherford DO Finalized Date/Time: 06/22/21 07:37:50 Pt. Name: ENRIQUE MIKE/Sex: 1935 MALE Med Rec #: [id number] Physician: Enrique Rutherford DO Financial #: [id number] Pt. Type: O Room/Bed: [facility] Admit/Disch: 06/21/21 05:54:00 - Institution: Phase II Case Times [facility] Pre-Care Text: Patient is free from s/s of injury. Patient remains free from compromised physical state related to surgery or anesthesia. Patient comfort maintained. Patient/family verbalize understanding of discharge instructions. Entry 1 In PACU II 06/21/21 10:30:00 Discharge from PACU 06/21/21 12:00:00 II Last Modified By: Karla Moss RN 06/22/21 07:37:47 Post-Care Text: The patient remains free from s/s of injury. Patient's vital signs stable, circulation maintained, return to preop mental and physical status, opsite/dressing intact, minimal or absent nausea and vomiting, tolerates po intake. Patient verbalizes adequate pain control. Patient/family express understanding of discharge instructions. General Comments: PHASE II COMPLETED ON . Finalized By: Karla Moss RN Document Signatures Signed By: Karla Moss RN 06/22/21 07:37 [facility] Progress Note - Nurseon 05-0 Progress Note - Nurse Shoulder block wearing off. Pt able to move his wrist and forearm. unable to wiggle fingers but tactile sensation intact. Circ checks WDL. Pain level 4/10. 5mg Oxycodone given. [Electronically Signed on: 10/06/2021 14:53 EDT] Emily Kennedy RN [Verified on: 10/06/2021 14:53 EDT] Emily Kennedy RN [facility] Progress Note - Nurse Surgical dressing removed. Steri strips intact. small dried blood scattered down incision line. Small amount of bloody drainage noted to distal incision site. Incision cleansed with NS and 4x4 gauze. Sterile 4x4 gauze placed over distal incision site. Entire incision site then covered with ABD pads and secured with compression foam tape. Daughter and verbalized understanding of dressing change procedure. [Electronically Signed on: 10/06/2021 14:53 EDT] Emily Kennedy RN [Verified on: 10/06/2021 14:53 EDT] Emily Kennedy RN [facility] Progress Note - Nurse Pt discharged to home. Taken to awaiting car via wheelchair. Belongings sent with pt. [Electronically Signed on: 10/06/2021 14:53 EDT] Emily Kennedy RN [Verified on: 10/06/2021 14:53 EDT] Emily Kennedy RN [facility] Anesthesia Noteon 06-21-2021 Anesthesia Note Patient: ENRIQUE MIKE Age: 85 years Sex: MALE : 1935 Associated Diagnoses: None Author: Rod Ann DO Preoperative Information Anesthesiologist scheduled: Rod Ann DO > 8 hours Anesthesia history: Patient history: No prior anesthesia problems. Family history: No prior anesthesia problems. Re-evaluation prior to induction: Completed. Initial evaluation reviewed: No significant interval change. Review of Systems Constitutional: No fever, No chills. Respiratory: No shortness of breath. Cardiovascular: No chest pain. Gastrointestinal: No heartburn. Neurologic: Alert and oriented X4. ROS reviewed as documented in chart Health Status Allergies: Allergic Reactions (All) No known allergies Current medications: (Selected) Inpatient Medications Ordered !-Ancef: 1 gm = 50 mL, 100 mL/hr, IV Piggyback, Helicopter Pilot LR 1,000 mL: 20 mL/hr, IV Lidocaine 1% injectable solution: 0.1 mL, ID, Once, PRN: Other (see comment) tranexamic acid: 1,000 mg = 100 mL, 300 mL/hr, IV Piggyback, Helicopter Pilot tranexamic acid: 1,000 mg = 100 mL, 300 mL/hr, IV Piggyback, Helicopter Pilot Documented Medications Documented Aspir-Low 81 mg oral delayed release tablet: 81 mg = 1 tab(s), PO, Daily, 30 tab(s), 0 Refill(s) CoQ10 100 mg oral capsule: 200 mg, PO, Daily, 0 Refill(s) FeroSul 325 mg (65 mg elemental iron) oral tablet: 325 mg = 1 tab(s), PO, Daily, 270 tab(s), 0 Refill(s) Fish Oil 1000 mg oral capsule: 1,000 mg = 1 cap(s), PO, Daily, 60 cap(s), 0 Refill(s) PreserVision AREDS 2: 2 tab(s), PO, Daily, 0 Refill(s) citrus bioflavonoid: 1 tab(s), PO, Daily, 0 Refill(s) levothyroxine 100 mcg (0.1 mg) oral tablet: 100 mcg = 1 tab(s), PO, Daily, 30 tab(s), 0 Refill(s) lisinopril 5 mg oral tablet: 5 mg = 1 tab(s), PO, Daily, 30 tab(s), 0 Refill(s) lovastatin 20 mg oral tablet: 20 mg = 1 tab(s), PO, Daily, 30 tab(s), 0 Refill(s) prostate force factor: 1 tab(s), PO, HS, 0 Refill(s) prostate force factor: 2 tab(s), PO, Daily, 0 Refill(s) Problem list (past medical history): All Problems BCC (basal cell carcinoma), face / SNOMED CT 2265591316 / Confirmed Hypertension / SNOMED CT 6778912509 / Confirmed, Active Problems (2) BCC (basal cell carcinoma), face Hypertension Histories Family History: Entire family history is negative. Procedure history: Goiter (7237510). Back fusion (845502801). Chest tube insertion ([id number] ). Comments: 06/04/2021 9:17 EDT - Elvi Barber RN left lung 1998 Inguinal hernia ([id number]). Rotator cuff (82139853). Hammer toe ([id number]). Social History Electronic Cigarette/Vaping Assessment Electronic Cigarette Use: Never. Alcohol Assessment Beer Comment: benoit pulido Tobacco Assessment Former tobacco user Tobacco Use:. Substance Abuse Assessment Substance use: Never. . Social & Psychosocial Habits Alcohol 06/04/2021 Type: Patt Comment: benoit pulido - 06/04/2021 09:18 - Elvi Barber RN Substance Abuse 06/04/2021 Substance use: Never Tobacco 06/04/2021 Smoking tobacco use: Former tobacco user Electronic Cigarette/Vaping 06/04/2021 Electronic Cigarette Use: Never . Physical Examination VS/Measurements Measurements from flowsheet : Measurements 06/21/2021 6:05 EDT Height 175.260 cm Height/Length Dosing 175.260 cm Weight 76.900 kg Weight Dosing 76.900 kg Body Mass Index 25.040 kg/m2 Airway: Mallampati classification: I (soft palate, fauces, uvula, pillars visible). Distance: Thyromental, Adequate. Temporomandibular joint mobility: Good. Mouth: Adequate opening, Dentures ( Upper and lower dentures, Partial plate, removed ), Teeth ( none loose ). Neck: Full range of motion. Respiratory: Lungs are clear to auscultation. Cardiovascular: Normal rate, Regular rhythm. Neurologic: Alert, Oriented, No focal deficits. Review / Management Results review ECG interpretation Plan [place] [employer]#( A) physical status classification: Class II. Anesthetic Preoperative Plan Anesthesia: General. , Regional Interscalene Block. Anesthetic plan, risks, benefits, and alternatives discussed with the patient and/or family. Risks discussed: GA + PNB. Patient verbalized understanding. Informed consent was given. Consent was signed by the patient. Anesthetic technique: General anesthesia, Regional anesthesia. [Electronically Signed on: 06/21/2021 07:57 EDT] Rod Ann DO [Verified on: 06/21/2021 07:57 EDT] Rod Ann DO [facility] Anesthesia Note Patient: ENRIQUE MIKE Age: 85 years Sex: MALE : 1935 Associated Diagnoses: None Author: Rod Ann DO Postoperative Information Post Operative Note: Post Anesthesia Care Unit. Anesthetic utilized: General. Regional: Interscalene Block. Physical Examination VS/Measurements VSS. See nursing flowsheet for vital sign measurements. General: No acute distress. Respiratory: Respirations are non-labored. Cardiovascular: Stable hemodynamics.. Neurologic: Alert, Oriented, Expected motor/sensory block. Review / Management Condition: Stable. Assessment Anesthetic outcome No anesthetic complications noted. Adequate pain relief. Patient either has a diagnosis of or is at risk of LESVIA. Potential risks and mitigating factors were discussed with the patient who expresses understanding.. No Complaint of nausea and vomiting. Plan Transfer/ Discharge: Patient can be discharged from PACU when criteria met. Condition stable. [Electronically Signed on: 06/21/2021 11:47 EDT] Rod Ann DO [Verified on: 06/21/2021 11:47 EDT] Rod Ann DO [facility] MAGR Intraoperative Recordon 06-21-2021 MAGR Intraoperative Record MAGR Intra-Op Record Summary Primary Physician: Finalized Date/Time: 06/21/21 07:33:10 Pt. Name: ENRIQUE MIKE/Sex: 1935 MALE Med Rec #: [id number] Physician: Enrique Rutherford DO Financial #: [id number] Pt. Type: D Room/Bed: / Admit/Disch: 06/21/21 05:54:00 - Institution: Case Times MAGR Entry 1 Patient In Room Time 06/21/21 07:09:00 Out Room Time 06/21/21 07:27:00 Anesthesia Start Time 06/21/21 07:11:00 Stop Time 06/21/21 07:22:00 Surgery Start Time 06/21/21 07:18:00 Stop Time 06/21/21 07:22:00 Last Modified By: Daphnie Barr RN 06/21/21 07:29:09 Case Attendance MAGR Entry 1 Entry 2 Entry 3 Case Attendee Rod Ann Laura RN Klaehn, Margaret RN Role Performed Anesthesiologist of Bronc Breaker Bronc Breaker Record Time In 06/21/21 07:09:00 06/21/21 07:09:00 06/21/21 07:09:00 Time Out 06/21/21 07:10:00 06/21/21 07:27:00 06/21/21 07:27:00 Procedure Interscalene Block(Left) Interscalene Block(Left) Interscalene Block(Left) Last Modified By: Daphnie Barr RN, Margaret RN Klaehn, Margaret RN 06/21/21 07:29:19 06/21/21 07:29:19 06/21/21 07:29:19 Surgical Procedures MAGR Pre-Care Text: A.20 Verifies operative procedure, surgical site, and laterality Im.150 Develops individualized plan of care Entry 1 Procedure Interscalene Block Primary Procedure Yes Primary Surgeon Rod Ann DO Modifiers Left Surgeon Comment SCALENE BLOCK PRIOR TO Start 06/21/21 07:18:00 LEFT REVERSE TOTAL SHOULDER - ARTHREX Stop 06/21/21 07:22:00 Anesthesia Type Regional Block Surgical Service Anesthesia Wound Class Clean Technique Details Closure Technique N/A Entire procedure No was performed via laparoscope or robotic assistance Last Modified By: Daphnie Barr RN 06/21/21 07:29:49 Post-Care Text: O.730 The patient's care is consistent with the individualized perioperative plan of care General Case Data MAGR Pre-Care Text: A.350.1 Classifies surgical wound Entry 1 Case Information OR MAGR Proc Room Case Level None Wound Class Clean Specialty Anesthesia ASA Class 2 Diagnosis Preop Diagnosis SCALENE BLOCK PRIOR TO Postop Same As Preop Yes LEFT REVERSE TOTAL SHOULDER - ARTHREX Postop Diagnosis SCALENE BLOCK PRIOR TO LEFT REVERSE TOTAL SHOULDER - ARTHREX Blunt or No Is the procedure No penetrating injury considered occured prior to Emergent/Urgent? the start of the procedure: Last Modified By: Daphnie Barr RN 06/21/21 07:20:09 Post-Care Text: O.760 Patient receives consistent and comparable care regardless of the setting Time Out MAGR Entry 1 Time out date/time 06/21/21 07:10:00 All team members Yes have introduced themselves by name and role Surgeon, Yes Surgeon reviews Yes anesthesia, nurse critical or confirm patient, unexpected steps, site, procedure operative duration, anticipated blood loss Anesthesia team Yes Nursing team Yes reviews any reviews sterility patient-specific (including concerns indicator results) and equipment issues/concerns Antibiotic Antibiotic N/A prophylaxis given within the last 60 minutes Is essential Yes imaging displayed? Last Modified By: Daphnie Barr RN 06/21/21 07:20:38 Patient Positioning MAGR Pre-Care Text: A.280 Identifies baseline musculoskeletal status Im.40 Positions the patient Im.80 Applies safety devices Entry 1 Procedure Interscalene Block(Left) Body Position Supine Left Arm Position Resting at Side Right Arm Position Resting at Side Left Leg Position Extended Right Leg Position Extended Feet Uncrossed? Yes Press Points Checked Yes Outcome Met (O.80) Yes Last Modified By: Daphnie Barr RN 06/21/21 07:26:36 Post-Care Text: E.290 Evaluates musculoskeletal status O.80 Patient is free from signs and symptoms of injury related to positioning Skin Prep MAGR Pre-Care Text: A.30 Verifies allergies Im.270 Performs skin preparation Im.270.1 Implements protective measures to prevent skin and tissue injury due to chemical sources Entry 1 Skin Prep Syntegrity Prep Agents (Im.270) Chlorhexidine Gluconate Prep By Rod Ann DO and Alcohol Prep Area (Im.270) Shoulder, Neck Prep Area Details Left Skin Prep Agent Dry Yes Without Pooling Hair Removal Syntegrity Hair Removal Methods No hair removal performed Outcome Met (O.100) Yes Last Modified By: Daphnie Barr RN 06/21/21 07:30:57 Post-Care Text: E.10 Evaluates for signs and symptoms of physical injury to skin and tissue O.100 Patient is free from signs and symptoms of chemical injury Departure from OR MAGR Entry 1 Present on Depart Oxygen Via Stretcher Post-op Destination Bains Skin DFO Condition Dry Description Condition Intact Description Report Given To Brenda Oden RN Airway Maintenance Patient Status Stable Oxygen in Use? Yes Airway Device Nasal cannula Flow Ra (more content not included)... [facility] MAGR Intraoperative Record MAGR Intra-Op Record Summary Primary Physician: Enrique Rutherford DO Finalized Date/Time: 06/21/21 09:51:01 Pt. Name: ENRIQUE MIKE D.O.B./Sex: 1935 MALE Med Rec #: [id number] Physician: Enrique Rutherford DO Financial #: [id number] Pt. Type: D Room/Bed: [facility] [place][note 2]/ Admit/Disch: 06/21/21 05:54:00 - Institution: Case Times MAGR Entry 1 Patient In Room Time 06/21/21 07:28:00 Out Room Time 06/21/21 09:43:00 Anesthesia Start Time 06/21/21 07:28:00 Stop Time 06/21/21 09:45:00 Surgery Start Time 06/21/21 08:06:00 Stop Time 06/21/21 09:37:00 Last Modified By: Brenda Oden RN 06/21/21 09:50:58 Case Attendance MAGR Entry 1 Entry 2 Entry 3 Case Attendee Enrique Rutherford Jacquelyn RN McMurray CST/Eliel KILGORE CST Role Performed Surgeon - Primary Bronc Breaker Greaser Operator Time In 06/21/21 07:28:00 06/21/21 07:28:00 06/21/21 07:28:00 Time Out 06/21/21 09:16:00 06/21/21 09:43:00 06/21/21 09:16:00 Procedure Arthroplasty Shoulder Arthroplasty Shoulder Arthroplasty Shoulder Total Reverse(Left) Total Reverse(Left) Total Reverse(Left) Last Modified By: Brenda Oden RN, Jacquelyn RN Burns, Jacquelyn RN 06/21/21 09:43:07 06/21/21 09:43:07 06/21/21 09:43:07 Entry 4 Entry 5 Entry 6 Case Attendee Vivian Newman Regina CSFA CST Yontz, Christopher J DO CST Role Performed Greaser Operator Scrub Personnel Anesthesiologist of Record Time In 06/21/21 07:28:00 06/21/21 07:28:00 06/21/21 07:28:00 Time Out 06/21/21 09:43:00 06/21/21 09:43:00 06/21/21 09:43:00 Procedure Arthroplasty Shoulder Arthroplasty Shoulder Arthroplasty Shoulder Total Reverse(Left) Total Reverse(Left) Total Reverse(Left) Last Modified By: Brenda Oden RN, Jacquelyn RN Burns, Jacquelyn RN 06/21/21 09:43:07 06/21/21 09:43:07 06/21/21 09:43:07 General Comments: ARTHREX REP: KOBY GARCIA AND LEILANI RUIZ Surgical Procedures MAGR Pre-Care Text: A.20 Verifies operative procedure, surgical site, and laterality Im.150 Develops individualized plan of care Entry 1 Procedure Arthroplasty Shoulder Primary Procedure Yes Total Reverse Primary Surgeon Enrique Rutherford Modifiers Left Eliel DO Surgeon Comment LEFT REVERSE TOTAL Start 06/21/21 08:06:00 SHOULDER - ARTHREX Stop 06/21/21 09:37:00 Anesthesia Type General Surgical Service Orthopedics Wound Class Clean Technique Details Closure Technique Primary Entire procedure No was performed via laparoscope or robotic assistance Last Modified By: Brenda Oedn RN 06/21/21 09:43:06 Post-Care Text: O.730 The patient's care is consistent with the individualized perioperative plan of care General Case Data MAGR Pre-Care Text: A.350.1 Classifies surgical wound Entry 1 Case Information OR MAGR OR 05 Case Level Level 5 Wound Class Clean Specialty Orthopedics ASA Class 2 Diagnosis Preop Diagnosis DJD LEFT SHOULDER Postop Same As Preop Yes Postop Diagnosis DJD LEFT SHOULDER Blunt or No Is the procedure No penetrating injury considered occured prior to Emergent/Urgent? the start of the procedure: Last Modified By: Brenda Oden RN 06/21/21 08:16:49 Post-Care Text: O.760 Patient receives consistent and comparable care regardless of the setting Time Out MAGR Entry 1 Time out date/time 06/21/21 08:05:00 All team members Yes have introduced themselves by name and role Surgeon, Yes Surgeon reviews Yes anesthesia, nurse critical or confirm patient, unexpected steps, site, procedure operative duration, anticipated blood loss Anesthesia team Yes Nursing team Yes reviews any reviews sterility patient-specific (including concerns indicator results) and equipment issues/concerns Antibiotic Antibiotic Yes prophylaxis given within the last 60 minutes Last Modified By: Brenda Oden RN 06/21/21 08:13:51 Patient Positioning MAGR Pre-Care Text: A.280 Identifies baseline musculoskeletal status Im.40 Positions the patient Im.80 Applies safety devices Entry 1 Procedure Arthroplasty Shoulder Body Position Beach Chair Total Reverse(Left) Left Arm Position Extended on padded arm Right Arm Position Extended on padded arm board board Left Leg Position Other/see comments Right Leg Position Other/see comments Feet Uncrossed? Yes Press Points Checked Yes Additional TRIANGLE CUSHION USED Positioning Device Pillow, Safety Strap Information UNDER LEGS, PILLOW UNDER NON-OPERATIVE ARM FOR SUPPORT Outcome Met (O.80) Yes Last Modified By: Brenda Oden RN 06/21/21 08:14:22 Post-Care Text: E.290 Evaluates musculoskeletal status O.80 Patient is free from signs and symptoms of injury related to positioning Skin Prep MAGR Pre-Care Text: A.30 Verifies allergies Im.270 Performs skin preparation Im.270.1 Implements protective measures to prevent skin and tissue injury due to chemical sources Entry 1 Ski (more content not included)... [facility] Record Summary Primary Physician: Enrique Rutherford DO Finalized Date/Time: 06/21/21 10:37:04 Pt. Name: ENRIQUE MIKE D.O.B./Sex: 1935 MALE Med Rec #: [id number] Physician: Enrique Rutherford DO Financial #: [id number] Pt. Type: D Room/Bed: 221/ Admit/Disch: 06/21/21 05:54:00 - Institution: PACU Case Times MAGR Entry 1 In PACU I 06/21/21 09:43:00 Discharge from PACU 06/21/21 10:28:00 I Last Modified By: Isabela Soliman RN 06/21/21 10:36:28 General Comments: Pt awake and oriented. VS stable. Transferred to room 221 via bed. Finalized By: Isabela Soliman RN Document Signatures Signed By: Isabela Soliman RN 06/21/21 10:37 [facility] Nutrition Noteon 06-21-2021 Nutrition Note Pt admitted for scheduled Lt shoulder surgery. Diet already advanced to a Regular, ate 100% of lunch, No wt hx available, denied any wt changes on electronic device repairer assessment. 06/04 pre-op labs reviewed, mildly elevated BUN noted. Pt at high nutrition risk r/t age greater than 65yr, however, no foreseeable nutrition concerns at this time. To follow. 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 Anesthesia: General with a preoperative interscalene block Indications for surgery: Failure of previous rotator cuff repair and findings consistent with arthropathy and arthritis with failure of treatment Estimated blood loss: Scant Findings: Complete tear of the rotator cuff the humeral head was impinging on the undersurface of the acromion there was absence of articular cartilage both in the glenoid and the humeral head consistent with arthritis Complications: None Procedure summary: Patient was given her general anesthetic in the beachchair position I then did a provisional prep with isopropyl alcohol this was allowed to dry completely and then a Betadine prep was performed. The shoulder was draped in usual fashion. An anterior incision was made utilizing the deltopectoral approach the cephalic vein was identified it was mobilized medially with the pectoralis. The deltoid was released the small portion of the proximal pectoralis was released about 1/2 cm the biceps tendon was identified and even in its groove and distally it had a degenerative appearance so rather than tenodesed I elected to released. The biceps tendon was released. The subscapularis was torn and retracted. I opened the capsule and expose the shoulder and dislocated shoulder Rall bone was noted on both sides. Utilizing a version guide cut was made resecting the humeral head. Hand-held reaming was performed and then broaching up to size 13. The broach was left in place and a protector was placed on the head. My attention was turned towards the glenoid labrum was excised and a 28 mm baseplate guide was used to insert a Steinmann pin and then reaming was performed over this and then the central post hole was reamed to 25. A size 28 baseplate with a 25 central post was impacted in place and was secured with 2 nonlocking screws and 2 locking screws. Next a 42+4 mm glenosphere was impacted in place and then secured with a central locking screw and checked for integrity Trial were performed and ultimately a +6 cup polywas utilized there was no tendency towards dislocation and the deltoid appeared to be appropriately balance. A size 13 stem with 40 to neutral cup and a 42+6 polyethylene impacted. It was snug and secure I then reduced the shoulder and took it through range of motion and found it to be stable. I irrigated thoroughly and I repaired the capsule with a #2 FiberWire suture. Subcutaneous layer was closed with 2-0 Vicryl and then a running 3-0 subcuticular stitch tincture benzoin and Steri-Strips. Sterile dressings were applied. [Electronically Signed on: 06/21/2021 10:15 EDT] Enrique Rutherford DO [Verified on: 06/21/2021 10:15 EDT] Enrique Rutherford DO [facility] Patient Handouton 06-21-[address] HARRIS POST OPERATIVE SHOULDER INSTRUCTIONS SURGEONS WRITTEN INSTRUTCTIONS: -If you have been given a cryo cuff after surgery you should use it as much as possible for the first 24-48 hours. After that it is optional. TIP: Many patients prefer to use it a little longer because it helps reduce pain -You should wiggle your fingers frequently -Change your dressings in 1 day. If steri-strips have been applied DO NOT remove them. When the wound is clean and dry you may leave it open to air but again DO NOT remove any steri-strips that have been applied -You may shower in 1 day but do not let the water stream directly strike the wound -Do pendulum exercises for at least 10 minutes twice a day -If you have any problems or concerns, please call the office at [phone] -Follow up as scheduled [facility] Progress Note - Nurseon Progress Note - Nurse reports no pain, numbness/tingling to left hand/arm, arm warm, palpable radial pulse, patient reports unable to squeeze fingers, ice continues to left shoulder, dressing clean and dry, oob up to bathroom to void, alert/orient, teds on, will continue to monitor. [Electronically Signed on: 06/21/2021 14:30 EDT] Phyllis Kasper RN [Verified on: 06/21/2021 14:30 EDT] Phyllis Kapser RN [facility] XR Shoulder 1 View Lefton XR Shoulder 1 View Left EXAM: XR Shoulder 1 View Left HISTORY: Status post Shoulder Replacement COMPARISON: None. TECHNIQUE: Single view FINDINGS: Normal alignment and unremarkable early postoperative appearance left shoulder arthroplasty. IMPRESSION: As above. Final Dictated by: Eliel Garvey V Dictated DT/TM: 06/21/21 4:52 Signed (Electronic Signature): Eliel Garvey V 06/21/21 4:54 pm Technologist: MARIELY BENITEZ [facility] Comment on above: Order Comment: barbara lt status post shoulder replacement Coding Summaryon 06-18-2021 Coding Summary HTMLBase 64 XwuqdsecLHc8fNe+PGhlY WQ+ZR5NWWNcV07acSJcqP 5GO9yWVU2AYQZEEQKMTW7 VPW1zdHI6BDixR6CvrnYb XjpwlXVcSL58LLs0HXK8h BgvQLemeV2tdEXdQ9p8Sn KlDC86rZ05BOgeXZWeYhK 3LjZpbjsgbWFy S4frReFsvSQiVtn+PHRhY mxlIHdpZHRoPScxMDAlJy PkdSfxON9xOy2dEMLgBOD vbGxhcHNlOiBj f8fhEVUiWCqwIJ3fnLjyC 1VjoLB2XKDal6q9Pc94fC I+HSOnGGQ5xUgfVGobv27 5ChGvr3wdOGN5 uMPcWOxcRKU5U10mf5R3E HDfKRFyWGA7yFJ0wF4jiL fthkzmN1EmhODbLaT8MCO 9wJStyI0kxXpw vyxjrY1lMzw+R18LTJ2ON ZXAVQ2HIye9L9BhUnkjaO I+OF95IEAgYK55jCOijWP ua6wbwFz3UmNs JGAdZUK0eAcxNMfsc5MlP RHgB91csRUnj6M6JLShfB qelMZaJbBblJR9gJ2rRVr aqcjau1elzuzf Arabr6mxru55tG84H57cW YgyIMXvBRV3YKPxZHOpxD cjft3fxU1lTk4+OOsvg7k pe3wjxTn8SnSu FNEmdxFunTkcLRH6f4AjT q04C1GyzJqvo4AcQyv9mw 18jXEli4L2hMY3WZapIGY kvN4vGXbuGyH6 HXXbOjIstX44zGJrAQltC w9hoDijvHpmMO0pPYEbtm vaTIVlgB1lHWOsnIIwiMv jFB0lSGXxlhiy t720KiCrVJJ5NTIbeEPjZ 6GnrF4tKrQcGZDkELHeR4 RinSUdPCcpJ365PUtpEdS 8TEYlokZeI3Kj LMVqiJvgPtF3v5V6Ie5Xc 7PpjqfaDND4FZpsQNH4Oi L0QqWbRvE0H4TjTvb1HMI kuYudNZ4gY8Zh JQSjtjiafnkjyJA3CKDzX KPauH35lQUnVJqqLk1ej8 I0q515VIJuARUudH72Lw5 udDogMTBwdCBU zQ9lfffgr2nvpowvOcGqK CSjXDm2FJc3KMIsmZiqHc SkZMI6QyE9OBY3rDSmdE0 kgFxbnuyouG3m Oyc+D11bsS0jXHG7MUM7c bngPDLscbYwEB50BS21Q2 RyPjwvdGFibGU+PGRpdiB reAswVP6wVpWb m6orx6UvYXxqB0FfAOKlF RkrQdb8FORuJZE9jJA5mG 6oSIGgBCzvc9M7sCO7Q1O mljIgvm1kp3id BOZlBGhqA96dzCOto0R1I XWknZG3JMGatNtsEcKzwO 93Oyc+EULqpNpqz4LwLmn lz8loa1uwdOm1 PiVcRWYzirOifFwwIFE9l 8DcHs05A70yYQgqWEEgYG TfQHCfRGLfqWdszi5buR2 wIi8+PGNvbCB3 jJW3pL2wJPGkFaM3DEzaA 076EjKdcXGsKjtel8wmz7 qerMi7OpTkRKYhziPwpDt kTBD2o6NpCw76 H55lFDepGBKcVGNzQCZxX XVcnOraqx9apB0kLf8+PC 1dt2jjnm45sH51yBP+PHR yHLH5zZbsWFkg UXXgyV1eVYdfMaD1DTGsV kTzwX58eODiOVwpSj2jjR selShvXI2gAUIdalkoa42 4UpFzx8rkHHHq zWWeOXkfZAP9I95co5T6E GVaGVFlUTD1hXY1rK9rqK lnbjogbGVmdDsgdmVydGl hCLcjROcuL232 IHRvcDsnPlBhdGllbnQgT iAmOQm3H8AyKxb1YURpzZ hjDK9uoYKeZGhjTc6rtYi uwCclFC4jXKIt nypuj383UnCal5nzAFKru GGaMKjpIGR8U70fa6G0XL QuGPYrDYE7mBW1jA5wtBr nbjogbGVmdDsg riZyzXytQHnmDGibN571J HRvcDsnPkJpcnRoIERhdG W8MC09LV53yKKka0B9wMJ 5M0RyVDBhfhtt rsspwLB1KBJjTBAeoZ60Y q0izEldSy5uOSSxQSV4JW KpzGFbR5WnlM7cDlFhAEG fIXPwZ7KsrCKo OWngS440SCzqAfR6TLMyt nLbI9HsRKUfuAhwOnH0f9 L4Ak2QW1C0HF89LO56hKU fx5P5kDX0P7Oa BLBuvenmftyqgXS1QNHzV XOktR50Py1gxLofSd0rFH XbVTK9WVEhjYItL1HzpQ6 yOiAjMDAwMDAw H3IydEHhIXdwA731ZSnpN tM7ZEFiazUnY3StJIJzhQ wiSeV5z6A0Pz1HPLs7UT0 6AD06oUHfs4Y4 qMY5X1JtHEPmijoiyueoq IP3CDPeIEOkqU45Ln2mvS wrTh3vPPOjIMK4JFZnqZQ bO2WeeL1zPaOh OPVaZYDjD0KmsJWyVRroR 141DNgzUqI4VSQxdeLeF4 LpREIhmIzgTaW8a7H7Aa4 ZOWGyWY06BUY5 aHM0VF50DK51A5JrJsvhd GFibGU+PHRhYmxlIHdpZH RoPScxMDAlJyBzdHlsZT0 eSl0xEBNrEWWn jQpdxZBsExUvf1rpOSDcN OrxYA1psDhdS2KksZQ7KG Uqb6q4Dj49K63jC3VmfSL +NHQeqNW1bKL9 cL9rXzNeMvQ2IZzsK260Z nOrdJFtUbvlu8ssz0sdvV j7AhU7YLPdujNlcJmuSTU 8j8FmJg74O11w IHdpZHRoPSIxNSUiIHZhb Etaee5vbQ5qSk4+PGNvbC B5pSQ6vB2bFwUgToV3SGz dO875KnHuwICf Gyegx0god1abxYx7WpMsD IClhjDhtDzeIXG1e7DbKn 40G9PrlHkxe1ThXob3tv6 2uSUjv4O5bYJ9 H5OxMZSjcovmrAUujGkfH N3bACCuxvhwNCIkzW2xCP VsE1o5FjJeKgD2SQndZ1L yhrN0SHHxoKYk TJauZGT4X25bd7E4LWTeW ZQhJXO2qZZ3jP2ibVaxry ogbGVmdDsgdmVydGljYWw eEZvoD017RNRa vCkkERNbkH9kZLLjxRYnp VzeXC1oEOGcnnuoPgRMPd QvMTcFDXOVGES3O8HkFno 8KMAbdJrkOD7o kDBsWZtoLm0khLcvwKilF G6wSUSvifhdASYpaM9sCV LhnGDukQhoWK7wQFBoyzq us811YmMiWNO0 VHRkmRPaD1YnbU4zNsNgO OLrGDKmM3KxwRWtQAtwA9 76UAtfOlA8PAXpdbAlP6Q sLWFsaWduOiB0 t4M1Ut0yMk8oFA0rBNN8S S87PA01kEBvi5V9nJG9Q6 LdTKQsuxdmsvrvrBE5MNZ gPEQdxB15mXSd DTanDy1oj5H0o142RJNoA ZUsvO62Ch6ymLvbWHOhxK OAfF0dixikz8edwecqRtP qBXAlPIx8KAm1 VPBsaSrzLoGjAYL4QtC9P NS0pPJkzF0xiTyjkchjbK 9wOyc+JYVvIODxyjL3B9B dKfs3DWKkhIkq BB8rxAOiOUhxSk4gdVmsk TfsCZ9yJRHvojmlDJDkiR 8yBZRtkGXcmQxuRJ3iVJX pcsmiy044SdKr LQC9DCEolMLjO4KkbE0iU fTfOMVyCSDgJ1BccWTdGL adN320CSpvWkC1OXBdrfV wX6EjJLEciHtq VdI1j7Z3Bi7DMXcYYE65P Y15gJGpf6M1iRO2B2ZhOZ YwqysgxhkatMM5INQeZPK nvC46mBUuYOru Go2na0V5p023NWIxZMIkd K36Zm0mkAztGJBfcPKFkV 2rlyejm9yolotgArZwBOO qCZk9TGy3JMDy sZvgQuTcIYE3XyU4HKO7c BHyiT4jpWlveagzwB0xDr c+P2R3H4SkUddabUP+PC9 9JJFcPU86sWKd oDQun1ugcHn5LwEfAIQfW NS4uYbpMEmjx5JcCFDeO7 6fhEVfh2P6LPRhsChboIO oTkPftPI7pJ9p OCamuojby6mdxnccQzrwz 2rpqf95zP73Q33hATauDC RoPSIzMCUiIHZhbGlnbj0 lsT3iVa0+PGNv zYJ1fGE4eP9aJbNwSyU8M YnyR808VtQabZLoGstij3 kgj0epeDx1UlPaDUJvtzW rqPunAFR1i2Zw Qi51O78ySYvyTXZmCWOiP ZVpOIXjzEhxmn1ihF0kEk 8+MZ9pq6oxmi20yB68lCY +OPThSBT8kIwu AGycJSEywR4mVBfiVxU4Q WEmWmOqzI21uUYiZNwvZf 9rrYujmGniOF1sYYNtuuq yi443ZdMrg2qo SKDmbWSpTGthPWW4K44rs 4R5SFGoVJKbJFG2lRN0bA 1hbGlnbjogbGVmdDsgdmV ydGljYWwtYWxp K767VTGcsMorQrEzgXJrC 9uxlyPXFQ0pBvnoxUX+PH BsIAX3uIrxWQxsDQTaqX0 mNBAbK9b1YnHs ZuS0HLzjO3WabrV9AXYsm GTfZJBfbQMRsP5qtjobl8 iqanbvPrOlNWJlQCs6EKf 0LWFsaWduOiBs AWK2BuP1SQE8yABriF1tw XsuxswptS4cSok+RklOOj wvdGQ+HKZqJNA1iXisDVn hVLOsjJ3aMEWx A0q8UuTjMgU8OKqqE5Fpk hL4MUQbgIXoJPJfyVJBbR 6vxdibz0xpwrecFxCvJLK wFTi7QWa7WQXr vBjjCpEiSYF7IaG8ESC3t GMvdT9whLwipsvpwX8jVc c+TVJOOjwvdGQ+PHRkIHN 0eWxlPSdwYWRk dM0nEYZrX5h1IjOjBrN7D ShjO1OyhqT0ZTOpzNNlNR CxsOEIfU6mdlwtz0sbrpm gIzAwMDAwMDt0 OWl7RSBbkWqyQkIjEDL4V cV5LSG3iTKglJ4vzNmrho burM9xOhj+YUS9ZXL2CT4 1YM78Y1DyRhyj dGFibGU+PHRhYmxlIHdpZ HRoPScxMDAlJyBzdHlsZT 3oCz0vZNFkAFWkyVapbCQ fZeTcg8saNYMr ZTs (more content not included)... [facility] Progress Note - Nurseon 05-22 Progress Note - Nurse Pre-op call done, instructed to arrive @ 0600 on 06-21-21, NPO after midnight-verbalized understanding. [Electronically Signed on: 06/18/2021 09:26 EDT] Ayah Gracia RN [Verified on: 06/18/2021 09:26 EDT] Ayah Gracia RN [facility] 2019 Novel Coronavirus (CoVI D-19), BART LCon 06-17-2021 SARS-CoV-2 (COVID-19) RNA BART+probe Ql (Unsp spec) Not detected Invalid Interpretation Code Not Detected [facility] Comment on above: Order Comment: [id number] Result Comment: This nucleic acid amplification test was developed and its performance characteristics determined by [employer]. Nucleic acid amplification tests include RT- PCR and TMA. This test has not been FDA cleared or approved. This test has been authorized by FDA under an Emergency Use Authorization (EUA). This test is only authorized for the duration of time the declaration that circumstances exist justifying the authorization of the emergency use of in vitro diagnostic tests for detection of SARS-CoV-2 virus and/or diagnosis of COVID-19 infection under section 564(b)(1) of the Act, 21 U.S.C. 360bbb-3(b) (1), unless the authorization is terminated or revoked sooner. When diagnostic testing is negative, the possibility of a false negative result should be considered in the context of a patient's recent exposures and the presence of clinical signs and symptoms consistent with COVID-19. An individual without symptoms of COVID-19 and who is not shedding SARS-CoV-2 virus would expect to have a negative (not detected) result in this assay. Performed At: [address] [id number] Suzanne Durham PhD Ph:[phone] Performed By: #### 6 [id number] #### [facility] (DEFAULT) [address] [place] [address] Advance Directive Documentso n 06-07-2021 Advance Directive Documents [id number] [facility] Coding Summaryon 06-07-2021 Coding Summary HTMLBase 64 LkhflfhnUIr6qDy+PGhlY WQ+UO1SGYPgT53ydYLofO 6LU0kGEK0BQPIBWKLWDT9 BUS2fxYL8WOjiN9EivsFk IyqreXHlZY68TFp6RCC0w QmpOHtrmD6bjKKaB0c6Jq NsWD44kJ61COyaXPDyVdL 3LjZpbjsgbWFy H7ddZqSogOFhEdz+PHRhY mxlIHdpZHRoPScxMDAlJy NpjIwcCD0lGl8nOZRkWIM vbGxhcHNlOiBj l5bhZJBaMNcdRE4lmWdaO 2SnfDN3QPFcl1k1Vx27sH I+UEZoKAI8uShfHFenb85 3PpShg5xkPLQ4 nYDeJDvfJKV3K00mr9N6F WQqNWYjSCR7rXZ5bI0huE jtoghhZ9OjaJLkUbH7UHH 8rAArmR6xwNye pboonB5jSgy+J91WLL5KA VRIZD1BLdd4Q6NfPtexkV I+EV85POWlTG11dDArcUQ zi6zpfPy0DmOp ZOOrUNC3sAbuXRkys8UzG INpD46iwIIqz2N9CMBznE gcdRJwXcEfdBZ5lE5rLVc hxjiqp1ehirtu Ofenq6tjsi52oW39V14qU TnkTEXjBDD9IOMbBRKfeO mqbv8tpB4pFy0+TXgpt8l je6mwxAe7DwSz PNPblgFtzZnmYTB5a5BfZ z96Q6TubGxxt9YqIwk2hp 01kXIiz8F0fJF0JRkmTCS sbW2lSGagFqG2 ZROwRpIhtH10tLXvFXmvG i6xvJudrPjzLN7nIZUwoh exFNAegE1tCRTwpAWesQh gTZ8mGCHpjqhi a029KlDsIPF8WPAjrKBzE 4EdvN0zYxTyXZDoMMCaG0 QcfZVlNZtiX012YUjbAyO 7WTHkabZxV5Dy NIOndJkrUgX3c6F4Wv2Vk 4LcwzivAJE9WKvrEFV8Hf Q1LuKzIbW5A0XwKjs2MIY frVdqJF6lC6Np QQEnymdficoxuUW7IMQoT FNssK38wECpACazGi8ye9 K1f779OJHyKOIgwY83Vg4 udDogMTBwdCBU cV5nuwwbw4mirfenWtKrC MTjUVg7BEp4JVFwrNqrVp GdGIB6TzL3DXK9vUTrjS7 okTmckcgqkV0z Oyc+M21vwU6lFOW6XZP1s zahOUNkunRgTW88MQ77A2 RyPjwvdGFibGU+PGRpdiB ccJqmZU9hHbWw q2oun0MoZRimR7BvCYSyG UczRpn2THDgTZN5wEV7nZ 3uEXUjWSvyw7W9uXG7T8K kiwPqyy5il1jv KNCbZFrgA03zjTGef1F6M TInmEH9ATVtrBrcClPimV 93Oyc+CDTypEyov6MjSah wt8brs5iixRq3 VnAvGLCbmyYkoNspGJL2u 0ZjYr49R72nSIukKOEiGK LjOYJtUOVsmDzota7fuU0 wIi8+PGNvbCB3 oOC8cF7pQDCwLhN0SXifZ 952PgIniBAfUinww1btm0 qlqYq1IlPkJJYguaEjmGy mCQI7r4DnZz63 F38lZOrtZSSxEPTiEMBcG JVnwPiozv7rnX4lVt1+PC 8yr9zckd56xB38mRT+PHR kHQF7uCmhPZax NIOiiJ2qQGooLwX3JJWvT pYepR90lQPpGLswQu1xrD dmvSxpCB9wHYYmplzpt04 7EsGpw3jhAMAg jEPvBYabKYP0M37to2H8L JBgCPMkKKF0fGF6bN6qiV lnbjogbGVmdDsgdmVydGl rXPdnGIwjJ308 IHRvcDsnPlBhdGllbnQgT wBhPLl6E6WzHwb1UBOyzO mmPN2ijSMbSBkbNy1ykTr suVnyXN3zXILr gfwck130AnCrl9iiECNif HQuIXahVSR1P64xe4I3PE ZkZIVbUSY2uZG5mR9naIf nbjogbGVmdDsg ckZzwGesYMroUOeuM405L HRvcDsnPkJpcnRoIERhdG C5QV09OQ27jIFbb2Q8gLY 1P4DwWVNhwmec hnbnwRT5DEKaTEKtlL45X l8vtMfsFo1cAFIvBQH2GX ZuhHUuM3OfjR4qLgKtXFX vLHWaG5KvlBGp YJfbP138OWwoInB9RWJdp aAaB7XoMLJykTbvItV5o9 B4Ew8CH8T8HG04NS29tQW pn7Q2hZC2X2My JBUoagbcvgrguPX7ARAbB FHpgQ37Js6bbWssEt7mJG XpMAA7DTAckGEwC9ZepI4 yOiAjMDAwMDAw R9EdfUZeKCafX263UEhmR eC8ZMXgztAwN2OmOFOnvM byLaQ5y8L9Dw9MPLa7EH1 5RE10yENxr7U8 nBS7O6CrHCObblzxjjgho IC6IEHbINPfyO79Sl3aqQ veGn3rFSKhFLY4HEPwcTV fC2MlpM0rSbLw VNUbYQXqC1QgiOFiUZzdW 288IHkxBbC4OOQzxcNyL1 BxVAWmiQhuKdB4i8X3Vp5 RFPUtFB67VJX7 lBC7YQ90ET69Q2YrRucjl GFibGU+PHRhYmxlIHdpZH RoPScxMDAlJyBzdHlsZT0 dSz4hRPDvBXSs zYxalHErKpFor1soNYKkC QzmKH2noRrlB4TurWQ2KJ Nzp2f2Bb41G71rP0CikMJ +IVAteQX0mEH3 sI2iTjZgMxG8HQctT549J cQwrJZuCprjj9lbz5pokH w3PnB2XVSfmrSjsVhqKNE 7l7ZlDb51E64d IHdpZHRoPSIxNSUiIHZhb Xiqkl0lxB1mMp1+PGNvbC G3jMN8aI2kMwQeVdG9PWu vC939VbWmmFBs Eroso8omv4xmeRe8QnThI RVbsyRiwLfaXRT9p5MwEv 00S9QznHjsz1GgRkc6ax6 9fEIpd3T6eNZ7 D7ZkSSGolcueiDBwmUowT F1qKRQbeumrMOSorV7hNU WuN3o3HjGgIhK9WAriK2V dazG8FHUkuUJh SHedAOV3V61hc2Y4WFTlP ZBgNJG7tHM7iL9wvOhuza ogbGVmdDsgdmVydGljYWw nHVspL743DXWi pCwjCQAxmU2gBEWpyTMqx JtpVZ1sPISpogjvNeEGAu McUJrDSEZXABN3L8DoImb 8GLNpqZdkYP8q lMHvIPqpWs4fcUejiSchX E7hFJQtzkteQXMgtA2qLO XlgKUeyMziEW0dZGEvgeb rs690YwZwIFN9 XRAjkZTvZ7KkmR8hCeOvW JYhIYEtG2EhjTYgYMjjR1 10ENnyLlM2ADNttrEvL2O sLWFsaWduOiB0 o4E3Xm0qCw5nXA2mZZL7T V28MU88mNMps8S7hQN2X8 FwZBWhqunrxjhuzSU2BIC kMXIsuL38fBVz NHvdFy4cg8M9q751QIMxM MEcyT90Yp9xpOytRDWsmX GLcM9xruyip2lodheoTfR qUSEnHDz7MHj7 BCUwpMqkWkKsPFE1WdE7D KT3rWUyoQ9olRiwpcosnU 9wOyc+ZHKeNVMofwH4G2Q iEbt2LLRmrQvl OG8nnAFpDAxaJu7weXkzj HquWD4rNUBwvykgOYSgbD 9xVLRbpNVwoUhcSK0tMJE vtzhzw592IiWv BUQ9AYBreFNkP0NfvL8kJ pNwRAQnTKRwF4SdtLDqKZ ehX917WDzwEaW9XCGobtT mQ3WhQXKmyVge WqQ3j8X1Ul6MSNsMCN27F M28sUQfk7B9kRR8P1JkLH WhimctlxesmOH0KDUcDWU vcG84gHOnUAci Vw9gr4U3t961EOZvAXXjv Q68Hd6oeYpnHOVieNFQdU 7qrkzyn2aeurwtUuOrDCS bRJm3NYc8AAVw zGljVdCdFSM3UrN8LET0z UPgqB0guGyonyhcjN9hQt c+U3A2G0NyYojtrOG+PC9 9ZSHfXA94iJZo jOYca8lgeBj5UeJxETYvW FY4cOpeWJqcl7LyTFPaG4 9efRDbi0Y2QJQnfDslqFF jGxRoiCH8yD2i PUvsliqyp1tdmkskWqovf 4wxsj99oP66Z02yPImuQK RoPSIzMCUiIHZhbGlnbj0 svK0sDo4+PGNv jRG4kQL6bJ6lErKtFmZ7K WruD653LySiuMLmWeptc2 atx6siuYy6HbExVXXftyM idDsrSCJ3a7Bn Vo38D56iARqzWCFmTDZyB GIxTUTtvArxrf2nkO1mCr 8+NY5yq5qhng26tL00nHJ +AHTvVPH8oJhq PCisXRWrsX8dQHnzHtP8E XNdVuKinT42tAGzMCyvXg 0pzWzxwBlzKA6tAPApuwq id216QjZgz2qe FGPprDAdDDxdJKO6Y15lt 5H3URTjXXLkLAX7kLH8xS 1hbGlnbjogbGVmdDsgdmV ydGljYWwtYWxp S282CNCuvTweZwGghMMkU 3etduCUKW5tQdexsSB+PH AbMSL6dGbuHEtpHTYtlV4 wAUWxH2o3MpPh JvP7TZbmD3WkigR5BKTxt ABmWXTvlDGEoD5lviwuz1 fjlegqOuIiSLVgKWf7YAf 0LWFsaWduOiBs DRR9GwA2TUA0dVIhmV4qf QbbxarkvN3xQde+RklOOj wvdGQ+NNNdGTX4qSiiEHh lGWMriU6rXTCa N2i8SwMfClF8ZXrlY5Wgy uT8SXBmoQGbMXUrhBXRaX 9yqheto2tayynbMhDaEDM vORb9RIt5NKXf uTeiRxRdKNR7ZuU4ULQ9z LMrvH5ioFkpvnzcpV7cMo c+TVJOOjwvdGQ+PHRkIHN 0eWxlPSdwYWRk rF0jFLBxN6y0GnBwApA3P ZzjA8ZhajV8GPPagSQuNT UugTOZkY1meojho6vatxd gIzAwMDAwMDt0 JOr4OBAfiDfvEoJpSSX9W oV8ATO9oNXdoV2lxZhvsn jcgH4fYzy+SGF1FJR6JA4 4BG28Z7KmDffi dGFibGU+PHRhYmxlIHdpZ HRoPScxMDAlJyBzdHlsZT 7bGa8vPXAeJACifJxuhAB pJuQpp6ktMCMt ZTs (more content not included)... [facility] Progress Note - Nurseon 05-21 Progress Note - Nurse Chart reviewed by Dr. Garcia and no new orders received. [Electronically Signed on: 06/07/2021 15:13 EDT] Isabela Soliman RN [Verified on: 06/07/2021 15:13 EDT] Isabela Soliman RN [facility] Provider Orderson 06-07-2021 Provider Orders [id number] [facility] C MRSA Screenon 06-05-2021 C MRSA Screen Negative [facility] Comment on above: Performed By: #### 1 [id number] ####[facility] (DEFAULT)[address] [place] [address] .Auto Diff 1on 06-04-2021 Auto Norman % 13 % High 03-03 [facility] Comment on above: Performed By: #### 1 [id number] ####[facility] (DEFAULT)[address] [place] [address] Baso Abs# 0.0 x10 Normal 0.0-0.2 [facility] Comment on above: Performed By: #### 1 [id number] ####[facility] (DEFAULT)[address] [place] [address] Basophils/100 WBC (Bld) 0.8 % Normal 0.2-2.0 [facility] Comment on above: Performed By: #### 1 [id number], [id number], [id number] ####[facility] (DEFAULT)[address] [place] [address] Eos Abs# 0.1 x10 Normal 0.0-0.4 [facility] Comment on above: Performed By: #### 1 [id number], [id number], [id number] ####[facility] (DEFAULT)[address] [place] [address] Eosinophils/100 WBC (Bld) 2.3 % Normal 0.9-4.0 [facility] Comment on above: Performed By: #### 1 [id number], [id number], [id number] ####[facility] (DEFAULT)[address] [place] [address] Lymph Abs# 1.4 x10 Normal 1.3-2.9 [facility] Comment on above: Performed By: #### 1 [id number], [id number], [id number] ####[facility] (DEFAULT)[address] [place] [address] Lymphocytes/100 WBC (Bld) 28 % Normal 14-48 [facility] Comment on above: Performed By: #### 1 [id number], [id number], [id number] ####[facility] (DEFAULT)[address] [place] [address] Norman Abs# 0.6 x10 Normal 0.0-0.8 [facility] Comment on above: Performed By: #### 1 [id number], [id number] ####[facility] (DEFAULT)[address] [place] [address] Neut Abs# 2.7 x10 Normal 1.5-9.2 [facility] Comment on above: Performed By: #### 1 [id number], [id number], [id number] ####[facility] (DEFAULT)[address] [place] [address] Neutrophils/100 WBC (Bld) 55 % Normal 44-88 [facility] Comment on above: Performed By: #### 1 [id number], [id number], [id number] ####[facility] (DEFAULT)[address] [place] [address] BMP Standardon 06-04-2021 Anion gap [Moles/Vol] 18.0 mmol/L Normal 5.0-19.0 [facility] Comment on above: Performed By: #### 1 [id number], [id number], [id number] ####[facility] (DEFAULT)[address] [place] [address] Calcium [Mass/Vol] 9.8 mg/dL Normal 8.9-10.3 [facility] Comment on above: Performed By: #### 1 [id number], [id number], [id number] ####[facility] (DEFAULT)[address] [place] [address] Chloride [Moles/Vol] 96 mmol/L Low 101-111 [facility] Comment on above: Performed By: #### 1 [id number], [id number], [id number] ####[facility] (DEFAULT)[address] [place] [address] CO2 [Moles/Vol] 27 mmol/L Normal 21-32 [facility] Comment on above: Performed By: #### 1 [id number], [id number], [id number] ####[facility] (DEFAULT)[address] [place] [address] Creatinine [Mass/Vol] 1.19 mg/dL Normal 0.90-1.30 [facility] Comment on above: Performed By: #### 1 [id number], [id number], [id number] ####[facility] (DEFAULT)[address] [place] [address] eGFR AA >[address] [facility] Comment on above: Result Comment: Facility Assistant martha Kidney disease could be indicated at eGFRs of less than 60 ml/min/1.73m2. Kidney Failure is indicated at less than 15 ml/min/1.73m2 Performed By: #### 1 [id number], [id number], [id number] ####[facility] (DEFAULT)[address] [place] [address] eGFR Non AA 58 mL/min/1.73m2 Invalid Interpretation Code [facility] Comment on above: Performed By: #### 1 [id number], [id number], [id number] ####[facility] (DEFAULT)[address] [place] [address] Glucose [Mass/Vol] 93.0 mg/dL Normal 74.0-118.0 [facility] Comment on above: Performed By: #### 1 [id number], [id number], [id number] ####[facility] (DEFAULT)[address] [place] [address] Osmolality 277 mOsm/L Invalid Interpretation Code [facility] Comment on above: Performed By: #### 1 [id number], [id number], [id number] ####[facility] (DEFAULT)[address] [place] [address] Potassium [Moles/Vol] 4.5 mmol/L Normal 3.6-5.1 [facility] Comment on above: Performed By: #### 1 [id number], [id number], [id number] ####[facility] (DEFAULT)[address] [place] [address] Sodium [Moles/Vol] 136.0 mmol/L Normal 136.0-144.0 [facility] Comment on above: Performed By: #### 1 [id number], [id number], [id number] ####[facility] (DEFAULT)[address] [place] [address]3958 Urea nitrogen [Mass/Vol] 27 mg/dL High 8-26 [facility] Comment on above: Performed By: #### 1 [id number], [id number], [id number] ####[facility] (DEFAULT)[address] [place] [address] 30878 Urea nitrogen/Creatinine [Mass ratio] 23.0 mg/mg High 4.6-16.2 [facility] Comment on above: Performed By: #### 1 [id number], [id number], [id number] ####[facility] (DEFAULT)[address] [place] [address] 47608 CBC w/ Auto Diffon 2 Erythrocyte distribution width (RBC) [Ratio] 12.4 % Normal 11.5-15.0 [facility] Comment on above: Performed By: #### 1 [id number], [id number], [id number] #### [facility] (DEFAULT) [address] [place] [address] Hematocrit (Bld) [Volume fraction] 45.9 % Normal 34.8-51.9 [facility] Comment on above: Performed By: #### 1 [id number], [id number], [id number] #### [facility] (DEFAULT) [address] [place] [address] Hemoglobin (Bld) [Mass/Vol] 14.8 g/dL Normal 11.8-17.7 [facility] Comment on above: Performed By: #### 1 [id number], [id number], [id number] #### [facility] (DEFAULT) [address] [place] [address] Instr WBC 4.8 x10 [address] [facility] Comment on above: Performed By: #### 1 [id number], [id number], [id number] #### [facility] (DEFAULT) [address] [place] [address] Man Diff? Auto Normal [facility] Comment on above: Performed By: #### 1 [id number], [id number], [id number] #### [facility] (DEFAULT) [address] [place] [address] MCH (RBC) [Entitic mass] 32 pg Normal 24-34 [facility] Comment on above: Performed By: #### 1 [id number], [id number], [id number] #### [facility] (DEFAULT) [address] [place] [address] MCHC (RBC) [Mass/Vol] 32 g/dL Normal 26-37 [facility] Comment on above: Performed By: #### 1 [id number], [id number], [id number] #### [facility] (DEFAULT) [address] [place] [address] MCV (RBC) [Entitic vol] 98 fL Normal 81-100 [facility] Comment on above: Performed By: #### 1 [id number], [id number], [id number] #### [facility] (DEFAULT) [address] [place] [address] 98829 Platelet 221 x10 Normal 138-427 [facility] Comment on above: Performed By: #### 1 [id number], [id number], [id number] #### [facility] (DEFAULT) [address] [place] [address] 83342 Platelet mean volume (Bld) [Entitic vol] 8.6 fL Normal 6.3-10.2 [facility] Comment on above: Performed By: #### 1 [id number], [id number], [id number] #### [facility] (DEFAULT) [address] [place] [address] 86298 RBC 4.68 x10 Normal 3.70-5.30 [facility] Comment on above: Performed By: #### 1 [id number], [id number], [id number] #### [facility] (DEFAULT) [address] [place] [address] 11546 WBC 4.8 x10 Normal 3.5-10.5 [facility] Comment on above: Performed By: #### 1 [id number], [id number], [id number] #### [facility] (DEFAULT) [address] [place] [address] 38067 UA w Culture if Ind Standard on 06-04-2021 Breakpoint UA [facility] Comment on above: Performed By: #### 1 [id number] ####[facility] (DEFAULT)[address] [place] [address] 84133 Color (U) Yellow Normal [facility] Comment on above: Performed By: #### 1 [id number] ####[facility] (DEFAULT)[address] [place] [address] 18211 Culture? No Normal [facility] Comment on above: Performed By: #### 1 [id number] ####[facility] (DEFAULT)[address] [place] [address] 42149 Glucose (U) [Mass/Vol] Negative Normal [facility] Comment on above: Performed By: #### 1 [id number] ####[facility] (DEFAULT)[address] [place] [address] 74766 Ketones Ql (U) Negative Normal [facility] Comment on above: Performed By: #### 1 [id number] ####[facility] (DEFAULT)[address] [place] [address] Micro? Not Indicated Normal [facility] Comment on above: Performed By: #### 1 [id number] ####[facility] (DEFAULT)[address] [place] [address] 17519 UA Bilirubin Negative Normal [facility] Comment on above: Performed By: #### 1 [id number] ####[facility] (DEFAULT)[address] [place] [address] UA Blood Negative Normal NEGATIVE [facility] Comment on above: Performed By: #### 1 [id number] ####[facility] (DEFAULT)[address] [place] [address] UA Clarity CLEAR Normal CLEAR [facility] Comment on above: Performed By: #### 1 [id number] ####[facility] (DEFAULT)[address] [place] [address] UA Leuk Est Negative Normal NEGATIVE [facility] Comment on above: Performed By: #### 1 [id number] ####[facility] (DEFAULT)[address] [place] [address] 92809 UA Nitrite Negative Normal NEGATIVE [facility] Comment on above: Performed By: #### 1 [id number] ####[facility] (DEFAULT)[address] [place] [address] 76917 UA pH 6.0 Normal 5-8 [facility] Comment on above: Performed By: #### 1 [id number] ####[facility] (DEFAULT)[address] [place] [address] 26081 UA Protein Negative Normal NEGATIVE [facility] Comment on above: Performed By: #### 1 [id number] ####[facility] (DEFAULT)[address] [place] [address] 76524 UA Spec Grav 1.020 Normal 1.001-1.035 [facility] Comment on above: Performed By: #### 1 [id number] ####[facility] (DEFAULT)[address] [place] [address] 25013 UA Urobilinogen 0.2 mg/dL Normal 0.2-1.0 [facility] Comment on above: Performed By: #### 1 [id number] ####[facility] (DEFAULT)[address] [place] [address] Urine Source Clean Catch Normal [facility] Comment on above: Performed By: #### 1 [id number] ####[facility] (DEFAULT)[address] [place] [address] Clinical Note 10-15-2021 Note Date & Type Note Facility 10-15-2021 Note PROCEDURE: Multiplan ar, multisequence imaging including T1, T2 without contrast. FINDINGS: Comparison made with prior lumbar plain film June 28, 2016. No acute vertebral body fracture. Chronic moderate to severe anterior compression fracture L1, interval mild to moderate central end plate compressions of L3 subsequent to the 2016 examination with no acute or subacute bone marrow changes at this time. Similar alignment including several mm anterolisthesis of L3 upon L4, L4 upon L5. Unremarkable conus medullaris. Slight thickening of the nerve roots L3/4, L4/5. Unremarkable paravertebral soft tissues. Bilateral 4-5 cm bilateral renal cysts. T11/12: Moderate disc space loss. Small central disc herniation, bilateral facet arthropathy. No spinal canal stenosis. Moderate to severe bilateral neuroforaminal stenosis. Small right perineural root sleeve cysts. T12/L1: Moderate disc space loss. No disc herniation or spinal canal stenosis. 5 mm retropulsion of the posterior vertebral body resulting in no significant canal stenosis. L1/2: Minimal disc space loss. Broad-based central disc bulging. Bilateral facet arthropathy. No spinal canal stenosis. Mild left, moderate right neuroforaminal stenosis. L2/3: Minimal disc space loss. Broad-based disc bulging into the spinal canal, no spinal canal stenosis. Bilateral facet arthropathy. No neuroforaminal stenosis. L3/4: Normal disc volume. Several mm anterolisthesis contributes to uncovering of bulging disc material. Prominent ligamentum flavum hypertrophy and facet arthropathy contribute to several stenosis of the thecal sac, moderate to severe stenosis bilateral mid and exit neuroforaminal zones. L4/5: Severe disc space loss. Broad-based disc bulging, severe ligamentum flavum hypertrophy and facet arthropathy contribute to severe stenosis of the thecal sac, mild bilateral neuroforaminal stenosis. L5/S1: Moderate disc space loss. Broad-based disc bulging into spinal canal, both neuroforaminal zones, right far lateral disc herniation. Severe facet arthropathy. No spinal canal stenosis. Moderate left, severe right exit neuroforaminal stenosis. 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 Report reported and signed by Kota Vargas on 10/18/2021 0738 [facility] [employer] Medication management note 06-23-2021 Note Date & Type Note Facility 06-23-2021 Note [id number] 06-23-2021 Note Date & Type Note Facility 06-23-2021 Note [id number] 06-22-2021 Note Date & Type Note Facility 06-22-[address] HARRIS POST OPERATIVE SHOULDER INSTRUCTIONS SURGEONS WRITTEN INSTRUTCTIONS: -If you have been given a cryo cuff after surgery you should use it as much as possible for the first 24-48 hours. After that it is optional. TIP: Many patients prefer to use it a little longer because it helps reduce pain -You should wiggle your fingers frequently -Change your dressings in 1 day. If steri-strips have been applied DO NOT remove them. When the wound is clean and dry you may leave it open to air but again DO NOT remove any steri-strips that have been applied -You may shower in 1 day but do not let the water stream directly strike the wound -Do pendulum exercises for at least 10 minutes twice a day -If you have any problems or concerns, please call the office at [phone] -Follow up as scheduled [facility] Clinical Note 06-22-2021 Note Date & Type Note Facility 06-22-2021 Note [facility] Clinical Discharge Summary PERSON INFORMATION Name ENRIQUE MIKE Age 85 Years 1935 Sex MALE Language Setswana PCP JERMAIN MENCHACA MD Marital Status Med Service Observation Acct# Arrival 06/21/2021 05:54:00 Visit Reason SURGERY - LEFT REVERSE TOTAL SHOULDER - ARTHREX Acuity LOS 000 29:26 Address: [address] [place] [address] [place] [address] Comment: PROVIDER INFORMATION VITALS INFORMATION Vital Sign Triage Latest Temp Oral 36.2 DegC 36.6 DegC Temp Temporal Temp Intravascular Temp Axillary Temp Rectal 02 Sat 98 % 94 % Respiratory Rate 18 br/min 20 br/min Peripheral Pulse Rate 78 bpm 98 bpm Apical Heart Rate Blood Pressure 155 mmHg / 81 mmHg 103 mmHg / 63 mmHg Comment: MEDICAL INFORMATION Allergy Info: No known allergies Medication List: Medications That Were Updated - Follow Below Instructions Other Medications Updated: levothyroxine (levothyroxine 100 mcg (0.1 mg) oral tablet) 1 tab(s) Oral Monday, Monday, Monday, Monday, . Medications to Continue That Have Not Changed Other Medications aspirin (Aspir-Low 81 mg oral delayed release tablet) 1 tab(s) Oral every day. docusate (docusate sodium 100 mg oral capsule) 1 cap(s) Oral every day as needed for constipation. ferrous sulfate (FeroSul 325 mg (65 mg elemental iron) oral tablet) 1 tab(s) Oral every day. lisinopril (lisinopril 5 mg oral tablet) 1 tab(s) Oral every day. lovastatin (lovastatin 20 mg oral tablet) 1 tab(s) Oral every day. meloxicam (meloxicam 15 mg oral tablet) 1 tab(s) Oral every day. multivitamin with minerals (PreserVision AREDS 2) 2 tab(s) Oral every day. omega-3 polyunsaturated fatty acids (Fish Oil 1000 mg oral capsule) 1 cap(s) Oral every day. oxyCODONE (oxyCODONE 5 mg oral tablet) 1 tab(s) Oral Every 6 hours as needed for pain. Template Non-Formulary (citrus bioflavonoid) 1 tab(s) Oral every day. Template Non-Formulary (prostate force factor) 2 tab(s) Oral every day. Template Non-Formulary (prostate force factor) 1 tab(s) Oral At bedtime. ubiquinone (CoQ10 100 mg oral capsule) 200 Milligram Oral every day. Comment: Lab and Radiology Results Laboratory or Other Results This Visit (last charted value for your 06/21/2021 visit) Diagnostic Radiology 06/21/2021 10:13 AM XR Shoulder 1 View Left: XR Shoulder 1 View Left Radiology Report 06/21/2021 4:54 PM Radiology Report: Radiology Report DIET & ACTIVITY Patient Activity Level: Patient Diet: Regular Patient Activity Restrictions: DISCHARGE INFORMATION Discharge Disposition: Home Discharge Location: Home DEPART REASON INCOMPLETE INFORMATION PATIENT EDUCATION INFORMATION Instructions: Sangeeta- Post Op Shoulder ([facility]ORGAN) Follow up: With: Address: When: Enrique Rutherford [address] [place] [address], [address] [place] [address] [facility] (1) 06/29/2021 10:45 AM DIAGNOSIS Osteoarthritis of left shoulder; Other specific arthropathies, not elsewhere classified, left shoulder; Rotator cuff tear arthropathy of left shoulder Comment: PHYS DOC NOTES [facility] History and physical note 06-21-2021 Note Date & Type Note Facility 06-21-2021 Note [id number] Summary Purpose Family History No Family History Records FoundNo Family History Records FoundNo Family History Records FoundNo Family History Records FoundNo Family History Records Found Advance Directives No Advanced Directives Records FoundNo Advanced Directives Records FoundNo Advanced Directives Records FoundNo Advanced Directives Records FoundNo Advanced Directives Records Found Additional Source Comments (unrecognized sect ion and content) No Status Records FoundNo Status Records FoundNo Status Records FoundNo Status Records FoundNo Status Records Found INFORMATION SOURCE (unrecogn ized section and content) DATE CREATED AUTHOR 10/13/2021 [facility] DATE CREATED AUTHOR AUTHOR'S ORGANIZ ATION 10/18/2021 [facility] DATE CREATED AUTHOR AUTHOR'S ORGANIZ ATION 12/20/2021 [facility] DATE CREATED AUTHOR AUTHOR'S ORGANIZ ATION 06/03/2023 [facility] DATE CREATED AUTHOR AUTHOR'S ORGANIZ ATION 08/02/2023 [facility] EPIC FOR RECORDS PERTAINING TO PATIENTS WHO ARE OR HAVE BEEN ENROLLED IN A CHEMICAL DEPENDENCY/SUBSTANCEABUSE PROGRAM, SOME INFORMATION MAY BE OMITTED. This clinical summary was aggregated from multiple sources. Caution should be exercised in using it in the provision of clinical care. This summary normalizes information from multiple sources, and as a consequence, information in this document may materially change the coding, format and clinical context of patient data. In addition, data may be omitted in some cases. CLINICAL DECISIONS SHOULD BE BASED ON THE PRIMARY CLINICAL RECORDS. [facility] [facility]. provides no warranty or guarantee of the accuracy or completeness of information in this document.
[2023-08-14 07:35] VITALS: BP 172/85; PULSE 71; TEMP 36.6; O2SAT 100
[2023-08-14 08:27] VITALS: BP 177/86; BP 183/95; PULSE 75; PULSE 81; O2SAT 98
--- NOTE | 2023-08-14 08:33 | P.ON_ITS ---
Date of procedure: 08/14/23 Pre-op diagnosis: Pain due to lumbar stenosis with neurogenic claudication Post-op diagnosis: same as pre-op Procedure: Procedure: Right L4-5, L5-S1 stenosis with neurogenic claudication Medications: Bupivacaine 0.25% 2cc, lidocaine 2% 1cc, kenalog 80mg The patient was seen and examined in the preoperative holding area.? Informed consent was obtained and placed on the chart.? Patient was brought to the medical procedure unit and placed in the prone position where a timeout was completed verifying the correct patient, procedure site, position, and planned special equipment using sterile aseptic technique.? Under direct fluoroscopic visualization a 25-gauge Quincke tipped spinal needle was advanced to the designated neural foramen where contrast dye was injected to show adequate spread.? The needle was inserted at level right L4-5. There was no evidence of vascular or adverse uptake.? Epidural spread was appreciated.? The above- mentioned injectate was then placed in a 1.5 mL aliquot preceded by negative aspiration.? The needle was removed. The needle was inserted and the procedure repeated at level right L5-S1.? The surgery site was covered.? Patient was taken to the postprocedural recovery area and monitored for an appropriate length of time before found suitable for discharge in the accompaniment of a responsible adult. Anesthesia: Local Surgeon: Alberto Pacheco Pathology: none sent Condition: stable Disposition: no change
[2023-08-14] MEDS: BUPIVACAINE HCL 0.25% PF 25 MG/10 ML VIAL INJ (08:36)
[2023-08-14] MEDS: IOHEXOL 240 MG/ML - 10 ML VIAL 36 MG INJ (08:36)
[2023-08-14] MEDS: 0.9 % SODIUM CHLORIDE 10 ML SYRINGE - SALINE FLUSH INJ (08:36)
[2023-08-14] MEDS: LIDOCAINE HCL 2% PF 100 MG/5 ML VIAL 2.5 ML INJ (08:37)
[2023-08-14] MEDS: TRIAMCINOLONE ACETONIDE 40 MG/ML VIAL 80 MG INJ (08:37)
== END 2023-08-14 08:36 | disposition home or self-care (01) ==
PROVIDERS: PCP Family Medicine; Visit Provider Anesthesiology
DX: M48.062 Spinal stenosis, lumbar region with neurogenic claudication (principal)
CPT/HCPCS: 64483; 64484; J0665; J3301; Q9966

== ENCOUNTER 2023-08-28 07:11 | Day surgery (SDC) | payer MEDICARE, SELFPAY ==
--- OUTSIDE RECORDS SUMMARY | 2023-08-28 07:14 | XMS_ITS | CCD ---
Author Organization [facility] Care Team Providers Care Tester Waste Disposal Leakage Name Role Phone NIKOLAI, DR ALY Attending Unavailable NIKOLAI, DR ALY Primary Care Unavailable NIKOLAI, DR ALY Admitting Unavailable NIKOLAIJERMAIN Nelson Primary Care Unavailable KATHE MEZA Attending Unavailable ALEXUS CLINTON Admitting Unavailable JOSE, AGUSTIN Attending Unavailable AGUSTIN GARCIA Referring Unavailable NIKOLAIJERMAIN Nelson Primary Care Unavailable Junior LEDEZMA, Alberto Ansari Attending Unavailable Junior LEDEZMA, Alberto Ansari Attending Unavailable NIKOLAI, JERMAIN Blas Attending Unavailable ABEL SOLIS Attending Unavailable NIKOLAIJERMAIN Referring Unavailable ABEL SOLIS Attending Unavailable ENRIQUE RUTHERFORD Attending Unavailable NIKOLAIJERMAIN Attending Unavailable ENRIQUE RUTHERFORD Attending Unavailable ENRIQUE RUTHERFORD Referring Unavailable ENRIQUE RUTHERFORD Referring Unavailable ENRIQUE RUTHERFORD Attending Unavailable HERBERT JARVIS Attending Unavailable Problems Problem Classification Problem Date Documented Date [...] Lane. Pt had CMP labs 06/01/23 at [facility]. HX lumbar laminectomy 12/01/21 MR BRAIN W [...] Mild degree of cortical atrophy. Finalized by Phil Mcleod MD on 06/02/2023 7:34 AM Normal [facility] CBC AND AUTO DIFFon 06-01-19 24 ABSOLUTE BASOPHIL 0.0 X10E9/L Normal 0.0-0.2 [facility] Comment on above: Performed By: #### 2 4331-1 #### [facility] ([id number]) [address], [address] [place] [address] #### CMP, PINR, 54580-9, 39139-7, THYR, 29938-7, CBCA, 96875-5 #### [facility] ([id number]) [address] [place] [address] ABSOLUTE NEUTROPHIL 2.9 X10E9/L Normal 1.5-6.6 [facility] Comment on above: Performed By: #### 2 4331-1 #### [facility] ([id number]) [address], [address] [place] [address] #### CMP, PINR, 41007-8, 40272-8, THYR, 09484-4, CBCA, 51569-2 #### [facility] ([id number]) [address] [place] [address] 02924 Basophils/100 WBC (Bld) 0.7 % Normal [facility] Comment on above: Performed By: #### 2 4331-1 #### [facility] ([id number]) [address], [address] [place] [address] #### CMP, PINR, 28298-6, 91268-1, THYR, 64064-0, CBCA, 43547-4 #### [facility] ([id number]) [address] [place] [address]85 Eosinophils (Bld) [#/Vol] 0.1 10*3/uL Normal 0.0-0.4 [facility] Comment on above: Performed By: #### 2 4331-1 #### [facility] ([id number]) [address], [address] [place] [address] #### CMP, PINR, 72048-5, 80868-7, THYR, 75197-6, CBCA, 85242-4 #### [facility] ([id number]) [address] [place] [address] 38425 Eosinophils/100 WBC (Bld) 1.5 % Normal [facility] Comment on above: Performed By: #### 2 4331-1 #### [facility] ([id number]) [address], [address] [place] [address] #### CMP, PINR, 64815-1, 13597-4, THYR, 38998-2, CBCA, 89622-4 #### [facility] ([id number]) [address] [place] [address] 23778 Erythrocyte distribution width (RBC) [Ratio] 12.5 % Normal 11.5-15.0 [facility] Comment on above: Performed By: #### 2 4331-1 #### [facility] ([id number]) [address], [address] [place] [address] #### CMP, PINR, 10555-3, 94062-9, THYR, 32090-4, CBCA, 33795-1 #### [facility] ([id number]) [address] [place] [address] 85512 Hematocrit (Bld) [Volume fraction] 39.5 % Normal 39-49 [facility] Comment on above: Performed By: #### 2 4331-1 #### [facility] ([id number]) [address], [address] [place] [address] #### CMP, PINR, 76444-8, 88752-2, THYR, 13900-6, CBCA, 46025-7 #### [facility] ([id number]) [address] [place] [address] 20488 Hemoglobin (Bld) [Mass/Vol] 13.7 g/dL Normal 13.0-17.0 [facility] Comment on above: Performed By: #### 2 4331-1 #### [facility] ([id number]) [address], [address] [place] [address] #### CMP, PINR, 24748-0, 89690-8, THYR, 12571-2, CBCA, 14069-6 #### [facility] ([id number]) [address] [place] [address] 79435 Lymphocytes (Bld) [#/Vol] 1.6 10*3/uL Normal 1.0-3.5 [facility] Comment on above: Performed By: #### 2 4331-1 #### [facility] ([id number]) [address], [address] [place] [address] #### CMP, PINR, 87190-4, 95151-0, THYR, 61067-2, CBCA, 23858-0 #### [facility] ([id number]) [address] [place] [address] 42393 Lymphocytes/100 WBC (Bld) 30.9 % Normal [facility] Comment on above: Performed By: #### 2 4331-1 #### [facility] ([id number]) [address], [address] [place] [address] #### CMP, PINR, 00692-7, 52085-2, THYR, 68539-7, CBCA, 01747-6 #### [facility] ([id number]) [address] [place] [address] 42229 MCH (RBC) [Entitic mass] 32.8 pg Normal 27-34 [facility] Comment on above: Performed By: #### 2 4331-1 #### [facility] ([id number]) [address], [address] [place] [address] #### CMP, PINR, 79314-0, 26123-0, THYR, 10893-8, CBCA, 05404-5 #### [facility] ([id number]) [address] [place] [address] 94083 MCHC (RBC) [Mass/Vol] 34.6 g/dL Normal 32-36 [facility] Comment on above: Performed By: #### 2 4331-1 #### [facility] ([id number]) [address], [address] [place] [address] #### CMP, PINR, 58457-4, 59000-8, THYR, 55422-7, CBCA, 59589-4 #### [facility] ([id number]) [address] [place] [address] 58390 MCV (RBC) [Entitic vol] 95 fL Normal 80-100 [facility] Comment on above: Performed By: #### 2 4331-1 #### [facility] ([id number]) [address], [address] [place] [address] #### CMP, PINR, 25392-6, 34928-7, THYR, 88303-1, CBCA, 42665-4 #### [facility] ([id number]) [address] [place] [address] 49109 Monocytes (Bld) [#/Vol] 0.6 10*3/uL Normal 0-0.9 [facility] Comment on above: Performed By: #### 2 4331-1 #### [facility] ([id number]) [address], [address] [place] [address] #### CMP, PINR, 47371-3, 10054-3, THYR, 67461-3, CBCA, 68950-1 #### [facility] ([id number]) [address] [place] [address] 02667 Monocytes/100 WBC (Bld) 10.8 % Normal [facility] Comment on above: Performed By: #### 2 4331-1 #### [facility] ([id number]) [address], [address] [place] [address] #### CMP, PINR, 81411-2, 83112-4, THYR, 49682-4, CBCA, 99899-4 #### [facility] ([id number]) [address] [place] [address] 73424 Neutrophils/100 WBC (Bld) 56.1 % Normal [facility] Comment on above: Performed By: #### 2 4331-1 #### [facility] ([id number]) [address], [address] [place] [address] #### CMP, PINR, 38307-7, 48410-5, THYR, 42949-7, CBCA, 86765-6 #### [facility] ([id number]) [address] [place] [address] 37152 Platelet mean volume (Bld) [Entitic vol] 6.8 fL Low 7-12 [facility] Comment on above: Performed By: #### 2 4331-1 #### [facility] ([id number]) [address], [address] [place] [address] #### CMP, PINR, 56530-1, 62575-7, THYR, 67584-5, CBCA, 63608-5 #### [facility] ([id number]) [address] [place] [address] 28548 Platelets (Bld) [#/Vol] 206 10*3/uL Normal 150-450 [facility] Comment on above: Performed By: #### 2 4331-1 #### [facility] ([id number]) [address], [address] [place] [address] #### CMP, PINR, 22475-9, 40574-7, THYR, 02468-3, CBCA, 20765-0 #### [facility] ([id number]) [address] [place] [address] 05627 RBC COUNT 4.17 X10E12/L Normal 4.10-5.70 [facility] Comment on above: Performed By: #### 2 4331-1 #### [facility] ([id number]) [address], [address] [place] [address] #### CMP, PINR, 68026-7, 17502-5, THYR, 14069-3, CBCA, 34087-6 #### [facility] ([id number]) [address] [place] [address] 88956 WBC (Bld) [#/Vol] 5.1 10*3/uL Normal 4.0-11.0 [facility] Comment on above: Performed By: #### 2 4331-1 #### [facility] ([id number]) [address] [place] [address], [address] [place] [address] #### CMP, PINR, 66503-4, 35564-5, THYR, 51488-9, CBCA, 89235-6 #### [facility] ([id number]) [address] [place] [address] 57784 COMPREHENSIVE METABOLIC PANE Kory 06-01-2023 Albumin [Mass/Vol] 4.5 g/dL Normal 3.2-5.3 [facility] Comment on above: Performed By: #### 2 4331-1 #### [facility] ([id number]) [address] [place] [address], [address] [place] [address] #### CMP, PINR, 88905-1, 12040-2, THYR, 96975-7, CBCA, 94622-8 #### [facility] ([id number]) [address] [place] [address] 72577 ALP [Catalytic activity/Vol] 56 U/L Normal 39-130 [facility] Comment on above: Performed By: #### 2 4331-1 #### [facility] ([id number]) [address] [place] [address], [address] [place] [address] #### CMP, PINR, 35185-0, 37106-1, THYR, 07725-5, CBCA, 59800-4 #### [facility] ([id number]) [address] [place] [address] 29113 ALT [Catalytic activity/Vol] 26 U/L Normal 0-40 [facility] Comment on above: Performed By: #### 2 4331-1 #### [facility] ([id number]) [address], [address] [place] [address] #### CMP, PINR, 09146-4, 02673-5, THYR, 29617-0, CBCA, 53847-3 #### [facility] ([id number]) [address] [place] [address] 54028 Anion gap [Moles/Vol] 3 mmol/L Low 5-15 [facility] Comment on above: Performed By: #### 2 4331-1 #### [facility] ([id number]) [address], [address] [place] [address] #### CMP, PINR, 13874-1, 04603-6, THYR, 42897-2, CBCA, 14732-4 #### [facility] ([id number]) [address] [place] [address] 44232 AST [Catalytic activity/Vol] 32 U/L Normal 0-41 [facility] Comment on above: Performed By: #### 2 4331-1 #### [facility] ([id number]) [address], [address] [place] [address] #### CMP, PINR, 63830-5, 14304-5, THYR, 08463-1, CBCA, 13193-2 #### [facility] ([id number]) [address] [place] [address] 20701 Bilirubin [Mass/Vol] 0.8 mg/dL Normal 0.3-1.2 [facility] Comment on above: Performed By: #### 2 4331-1 #### [facility] ([id number]) [address], [address] [place] [address] #### CMP, PINR, 29779-6, 22130-4, THYR, 97660-1, CBCA, 78781-2 #### [facility] ([id number]) [address] [place] [address] 42170 Calcium [Mass/Vol] 8.8 mg/dL Normal 8.5-10.5 [facility] Comment on above: Performed By: #### 2 4331-1 #### [facility] ([id number]) [address], [address] [place] [address] #### CMP, PINR, 46118-6, 11423-0, THYR, 93992-7, CBCA, 76084-7 #### [facility] ([id number]) [address] [place] [address] 58949 Chloride [Moles/Vol] 104 mmol/L Normal 98-109 [facility] Comment on above: Performed By: #### 2 4331-1 #### [facility] ([id number]) [address], [address] [place] [address] #### CMP, PINR, 07944-0, 38327-3, THYR, 68370-1, CBCA, 01400-6 #### [facility] ([id number]) [address] [place] [address] 49319 CO2 [Moles/Vol] 27 mmol/L Normal 22-32 [facility] Comment on above: Performed By: #### 2 4331-1 #### [facility] ([id number]) [address], [address] [place] [address] #### CMP, PINR, 32501-5, 99827-8, THYR, 44641-5, CBCA, 35393-0 #### [facility] ([id number]) [address] [place] [address] 32690 Creatinine [Mass/Vol] 1.25 mg/dL High 0.70-1.20 [facility] Comment on above: Result Comment: METH OD TRACEABLE TO IDMS STANDARD Performed By: #### 2 4331-1 #### [facility] ([id number]) [address], [address] [place] [address] #### CMP, PINR, 40684-6, 88009-1, THYR, 33785-7, CBCA, 61004-5 #### [facility] ([id number]) [address] [place] [address] 43446 GFR/1.73 sq M.predicted among non-blacks MDRD (S/P/Bld) [Vol rate/Area] 56 mL/min/{1.73_m2} Low >59 [facility] Comment on above: Result Comment: Reported eGFR is based on the CKD-EPI 2020 equation that does not use a race coefficient. Performed By: #### 2 4331-1 #### [facility] ([id number]) [address], [address] [place] [address] #### CMP, PINR, 62832-8, 06675-0, THYR, 10355-8, CBCA, 86882-5 #### [facility] ([id number]) [address] [place] [address] 32135 Glucose [Mass/Vol] 104 mg/dL High 65-99 [facility] Comment on above: Performed By: #### 2 4331-1 #### [facility] ([id number]) [address], [address] [place] [address] #### CMP, PINR, 79263-6, 87529-5, THYR, 04015-5, CBCA, 69380-5 #### [facility] ([id number]) [address] [place] [address] 23813 Potassium [Moles/Vol] 4.3 mmol/L Normal 3.5-5.0 [facility] Comment on above: Performed By: #### 2 4331-1 #### [facility] ([id number]) [address], [address] [place] [address] #### CMP, PINR, 45896-2, 94735-4, THYR, 42603-1, CBCA, 88384-1 #### [facility] ([id number]) [address] [place] [address] 75488 Protein [Mass/Vol] 7.3 g/dL Normal 6.0-8.0 [facility] Comment on above: Performed By: #### 2 4331-1 #### [facility] ([id number]) [address], [address] [place] [address] #### CMP, PINR, 83754-2, 36818-9, THYR, 22953-0, CBCA, 44138-2 #### [facility] ([id number]) [address] [place] [address] 23588 Sodium [Moles/Vol] 134 mmol/L Normal 134-146 [facility] Comment on above: Performed By: #### 2 4331-1 #### [facility] ([id number]) [address], [address] [place] [address] #### CMP, PINR, 67228-3, 61082-3, THYR, 39648-9, CBCA, 68455-4 #### [facility] ([id number]) [address] [place] [address] 64122 Urea nitrogen [Mass/Vol] 24 mg/dL Normal 5-27 [facility] Comment on above: Performed By: #### 2 4331-1 #### [facility] ([id number]) [address], [address] [place] [address] #### CMP, PINR, 65092-1, 70070-6, THYR, 77491-6, CBCA, 91905-0 #### [facility] ([id number]) [address] [facility] [facility] [place] [address] CT BRAIN WO CONT STROKE ALER Ton [...] Camacho MD on 06/01/2023 4:12 PM Normal [facility] CT CTA CAROTIDon 06-01-2023 CT CTA [...] low as reasonably achievable. NOTE: The [place] Symptomatic Carotid Endarterectomy Trial (NASCET)calculation of ICA [...] Mcleod MD on 06/01/2023 4:19 PM Normal [facility] CT CTA HEADon 06-01-2023 CT CTA [...] screening for acute ischemic stroke using Rapid AI software when clinically indicated. Automated exposure control [...] Agustin MD on 06/01/2023 4:19 PM Normal [facility] Fibrin D-dimer DDU (PPP) [Ma ss/Vol]on 06-01-2023 D DIMER 364 ng/mL DDU High <255 [facility] Comment on above: Result Comment: Results [...] level. Performed By: #### 2 4331-1 #### [facility] ([id number]) [address], [address] [place] [address] #### CMP, PINR, 56295-9, 58230-2, THYR, 25419-3, CBCA, 50346-3 #### [facility] ([id number]) [address] [place] [address] 17674 Glucose Glucometer (BldC) [M ass/Vol]on 06-01-2023 Glucose [Mass/Vol] 106 mg/dL High 65-99 [facility] HGB A1C (GLYCO-HGB)on 2023 Glucose [Mass/Vol] 111 mg/dL Normal [facility] Comment on above: Performed By: #### 2 4331-1 ####[facility] ([id number])[address], [address] [address]#### CMP, PINR, 91601-6, 76452-7, THYR, 81261-2, CBCA, 91293-8 ####[facility] ([id number])[address] [place] [address] 62763 HbA1c (Bld) [Mass fraction] 5.5 % Normal 4.4-5.6 [facility] Comment on above: Result Comment: NOTE ADA Guidelines Result HgbA1c Normal : less than 5.7 % Prediabetes : 5.7 % to 6.4 % Diabetes : > 6.4 % Use with caution in patients with abnormal hemoglobin variants as the half-life of red blood cells and in vivo glycation rates are affected. Performed By: #### 2 4331-1 ####[facility] ([id number])[address], [address] [place] [address]#### CMP, PINR, 05100-9, 37394-3, THYR, 26750-8, CBCA, 40756-7 ####[facility] ([id number])[address] [place] [address] 74118 Lipid 1996 panelon 4 Cholesterol [Mass/Vol] 169 mg/dL Normal 150-200 [facility] Comment on above: Performed By: #### 2 4331-1 ####[facility] ([id number])[address] [place] [address] [place] [address]#### CMP, PINR, 83941-1, 46092-3, THYR, 93108-5, CBCA, 74855-6 ####[facility] ([id number])[address] [place] [address] 06356 Cholesterol in HDL [Mass/Vol] 40 mg/dL Normal >39 [facility] Comment on above: Result Comment: HDL <40 mg/dL - High Risk HDL > or = 40mg/dL- Desirable HDL >60 mg/dL - Negative Risk Performed By: #### 2 4331-1 ####[facility] ([id number])[address] [place] [address], [address] [address]#### CMP, PINR, 24407-8, 94845-4, THYR, 31954-4, CBCA, 21875-9 ####[facility] ([id number])[address] [place] [address] 66726 Cholesterol in LDL [Mass/Vol] 69 mg/dL Normal <130 [facility] Comment on above: Result Comment: LDL <100 mg/dL - Desirable LDL >160 mg/dL - High Risk Performed By: #### 2 4331-1 ####[facility] ([id number])[address], [address] [place] [address]#### CMP, PINR, 59993-4, 50296-7, THYR, 19860-9, CBCA, 67398-8 ####[facility] ([id number])[address] [place] [address] 98512 Cholesterol in VLDL [Mass/Vol] 60 mg/dL High 0-30 [facility] Comment on above: Performed By: #### 2 4331-1 ####[facility] ([id number])[address], [address] [place] [address]#### CMP, PINR, 89735-4, 51583-8, THYR, 88842-7, CBCA, 06549-8 ####[facility] ([id number])[address] [place] [address] 87051 CHOLESTEROL:HDL 4.2 Normal 1.0-5.0 [facility] Comment on above: Performed By: #### 2 4331-1 ####[facility] ([id number])[address], [address] [address]#### CMP, PINR, 72163-5, 43626-5, THYR, 72229-4, CBCA, 69551-9 ####[facility] ([id number])[address] [place] [address] 07235 Triglyceride [Mass/Vol] 301 mg/dL High 27-150 [facility] Comment on above: Performed By: #### 2 4331-1 ####[facility] ([id number])[address], [address] [place] [address]#### CMP, PINR, 47182-7, 28048-5, THYR, 94180-0, CBCA, 65204-6 ####[facility] ([id number])[address] [place] [address] 09499 MAGNESIUMon 06-01-2023 Magnesium [Mass/Vol] 2.0 mg/dL Normal 1.8-2.6 [facility] Comment on above: Performed By: #### 2 4331-1 #### [facility] ([id number]) [address], [address] [place], [place] [address] #### CMP, PINR, 05010-1, , THYR, 41285-4, CBCA, 77912-0 #### [facility] ([id number]) [address] [place] [address] 37241 PROTIME AND INRon 06-01-2023 INR Coag (PPP) [Relative time] 1.0 {INR} Normal 0.8-1.1 [facility] Comment on above: Performed By: #### 2 4331-1 #### [facility] ([id number]) [address], [address] [place], [place] [id number] #### CMP, PINR, 10618-1, , THYR, 25218-1, CBCA, 80455-8 #### [facility] ([id number]) [address] [place] [address] PT Coag (PPP) [Time] 11.5 s Normal 9.8-13.2 [facility] Comment on above: Result Comment: NEW REFERENCE RANGE Performed By: #### 2 4331-1 #### [facility] ([id number]) [address], [address] [place], [place] [address] #### CMP, PINR, 36497-3, 49525-8, THYR, 15432-4, CBCA, 68352-7 #### [facility] ([id number]) [address] [place] [address] THYROID PROFILEon 06-01-2023 Free T4 [Mass/Vol] 0.95 ng/dL Normal 0.61-1.60 [facility] Comment on above: Performed By: #### 2 4331-1 ####[facility] ([id number])[address] [facility], [address] [place] [address]#### CMP, PINR, 10345-0, 55196-5, THYR, 52750-4, CBCA, 44584-9 ####[facility] ([id number])[address] [place] [address]6835 TSH 1.43 uIU/mL Normal 0.49-4.67 [facility] Comment on above: Performed By: #### 2 4331-1 ####[facility] ([id number])[address] [facility], [address] [place] [address]#### CMP, PINR, 16991-3, 89461-3, THYR, 60984-4, CBCA, 95869-7 ####[facility] ([id number])[address] [place] [address]70 Troponin I.cardiac High sens itivity method [Mass/Vol]on 06-01-2023 1 HOUR TROP I, HIGH SENSITIVITY 9 ng/L Normal <21 [facility] Comment on above: Performed By: #### 8 9579-7 ####[facility] ([id number])[address] [place] [address]285 TROPONIN I, HIGH SENSITIVITY 9 ng/L Normal <21 [facility] Comment on above: Performed By: #### 2 4331-1 #### [facility] ([id number]) [address] [facility], [address] [place] [address] #### CMP, PINR, 24668-0, 54263-4, THYR, 81960-8, CBCA, 36519-8 #### [facility] ([id number]) [address] [place] [address] aPTT Coag (PPP) [Time]on aPTT Coag (Bld) [Time] 30 s Normal 26-37 [facility] Comment on above: Result Comment: NEW REFERENCE RANGE Performed By: #### 2 4331-1 ####[facility] ([id number])[address] [facility], [address] [address]#### CMP, PINR, 13230-0, 31969-3, THYR, 80585-2, CBCA, 39609-2 ####[facility] ([id number])[address] [place] [address] Provider Orderson 07-28-2021 Provider Orders [phone] [id number] .[id number] [facility] Cons[facility] Formson 07-09-2021 Consent Forms [id number]#1 .00[facility] MAGR Preoperative Recordon 0 07-02-2021 MAGR Preoperative Record MAGR Pre-Op Record Summary Primary Physician: Enrique Rutherford DO Finalized Date/Time: 07/02/21 15:05:59 Pt. Name: ENRIQUE MIKE/Sex: 1935 MALE Med Rec #: [id number] Physician: Enrique Rutherford DO Financial #: [id number] Pt. Type: O Room/Bed: [facility]/1 Admit/Disch: 06/21/21 05:54:00 - 06/22/21 12:10:00 Institution: [...] Document Signatures Signed By: Isabela Soliman RN 07/02/21 15:05 [facility] Coding Summaryon 06-28-2021 Coding Summary HTMLBase 64 XjxtpsecXVe2rTc+PGhlY WQ+HD0XALEoD92ztNAzqG 5XH5bTNI3XQAKEKCESZD6 QEC0hjOQ8AMieS4KwvjIi LveagEQfOG69OCe9JMV3v EvhXKrzfB4drTClH2j2Hv BpWN13iB29CSewXNAiYaK 3LjZpbjsgbWFy G9agToPqmPLsCwp+PHRhY mxlIHdpZHRoPScxMDAlJy UfrMfvYR8jQg5gXZAxFDW vbGxhcHNlOiBj v9ozPCFiOOliLS2bsXnmD 2JjdWT2HZGdn5x7Ax39cH I+DTChKWD5uFtdDOpoz58 2LsVpx1muMBL5 lLExXKswLSZ2R05ug3Z8E BVkOSSkLDX3dPJ4wJ6qjZ xhejzuP7GfdKKwKxT8NEX 2yDJhyA9fqQqn ndswaW3xGro+H43VDG1WW OIBAU0IGhp1R7RaYilzbG I+CY72AYXkEY54pOVtbUA sn3ecrWg5KzJs FVIvTCP5oOfzURlbl0NuS AWjG87rbJYke4H4RNNybZ jyjBIkWcRykKP3xT8pYCc ojhvum8poyujb Zuhhl8wuvn70yI00H65sE HheKEFoDWE8DPIoZHIepH pcrg9emJ7aXu9+RXzwn2y uw6ywaDi7OqRr BJSzhwPomVhoGSM1l5LmL t42J0QfjWchx8WnYtq6qg 18bMZvp0I3jRL6ASdfWFI rnA4pBAufViQ4 CUBrSvBmjE14uPIjEHpqU l4xmEtsxXnnFY8pIBFztk jlVIZaeB5qRGPmqKDhkYi jPG4tGWKjfdbq c736NjZjTTX1TAYtfIOnK 1DgiJ6eBgPuQJJjTROaO8 MguQQdFFcjE284DSneFrR 3MSOvrtIaP5Wp HBUdaMqgQbT3d3R9Cg1Qg 5VoymylEEV8GDffRIZ0Lz K2EyKmInA5N4ZwZpt4VZL owGygRC4sW6Bh EHJlqwmhkplcdVK8NIOoA FHkfI60qUEpSCokXe1lz0 F2c653HZZrWATowD30It4 udDogMTBwdCBU mT3jhvfjh1wuhqvhOoBwQ WWtDSd6HDj7OQMmgDqkMh CjZWM2MzM5LBJ8tWUwfC9 vrZkpdxermM3r Oyc+L34beM6eNMO4UNJ8j cpuPDFfmtMnDM44ME98U0 RyPjwvdGFibGU+PGRpdiB kfQpsNA9pXqDo c6yyx4ZeMOqqH0ZlIPSmI UupUfp5GIErBYP7nTS0aO 6uRNErTIopq5B9xHE3K5R raxUkfz8ld9rd JXFsSLiiY72zrBKtw4L2T KLsrWT9ZUPbsUxlZgOuoM 93Oyc+HGSlbKomv6UtJze bn7qaz6zksYb8 HdNmKWWmqdGuaEhoXQE6y 2SgCj00L83mPSbmYWMzRO FiQGPeALCyeVuzlk9mzQ1 wIi8+PGNvbCB3 pNM9dG4nWGOuGmP6CUgqS 709AoOapKYsOvoxi8boi3 sgbKg5GfXgNGPxdiUhhYr cKGO3d8MwRw98 V84kVHfnQKCkZHIrMXXmS YQfyKrkwt5pqW2eHj6+PC 0uc5ejso16cN80dBE+PHR zBSA8oNbvHMkh XNOqkV7iHFidPsW3OCZwP vKwbJ96nPPmOGqyLq2kwX mcwWrlAH8pVVYurhbmm65 4WbUay5gbFQMr pBGqEPlvLXV4P97xt6X4Q BRyPRRcZJN0kKH4lX3lrQ lnbjogbGVmdDsgdmVydGl uMRxvEAvqY552 IHRvcDsnPlBhdGllbnQgT wWwNLf9W4RdGei1XEBruO pfFR3kpXUqXUzoAa3xkZf xsSovGD1xFIJw ngfti428WbBmx0ljIXYtn ILwKEmrAEC0V65xt5D9RI HnBRSjMTW9kRS6yW8ytDy nbjogbGVmdDsg bkTbzTnlWRcvGXuaM397U HRvcDsnPkJpcnRoIERhdG Y0QX47CX68tOFit9D4dYK 5W2ZrATQrnmgi guucdED3WBPzXSGprE30X o2flBjqUt9rWLVwIMR1PZ ZitRYsM0CqdB9eAoWwHMC aTXZbJ7WosXVj DCvpZ495ICuzAkH5RRDzt fXhZ0AhDRIqyHybFrO6f5 W8Mg4ON0U0AM50AH27xQZ zx5N3aUW2O7Lc QGCbzknozwfplJG1HFVdQ JOcwG42Yc9fbCosPi8gFA JuQHY1GSKojISdO1HylR6 yOiAjMDAwMDAw D0RskEClIGjnZ635CKmhT nS1QCBfkoUwY8DoYUWueQ wwYkV8u4O5Xr1BUDu9SK6 7FR61hZCtr0Y4 oIF2J4NwYGJqnzrxtldkg XY7AFQeUHHjtY57Yd3kdL jzAo0yYFQcYJA7BCKtfXO xC9PdcB6wCtKa ALPrPODbC8HunZUyVEyrO 101RJkfRkT6GHQsnpGgW2 KxHFFsyHuzXjA0l4R5Zw7 PDHVoYY51ULR9 vAQ3DI84GV14O0RcJoofd GFibGU+PHRhYmxlIHdpZH RoPScxMDAlJyBzdHlsZT0 lEy3iZONuDXNi iZpclBMbTlLor9zcHHWiS RnnPF5wcSqmB3KakWC9AV Pey3x2Kc39G12nR9IupCC +GKAozMH1qRL2 nT5dAlJgFfG3ESmrB727O mEjzYGtKvcyn7afi0zthX e8UcZ4TENbhkUrcQzxVGT 3j5EqNx62W34f IHdpZHRoPSIxNSUiIHZhb Bfmxu1usX2nLz0+PGNvbC Z3jXE7tE3lHcHeSwM1MJm xA114ZrFjmUDx Eaypf3kae0rtvGz5EnCiL DXwerOxnCjlCOX1k0VdSl 99U7LobZdkt6UiXal6vc6 1zEOlq7S3fUT7 I1FhMODuaexxhIQisYrgI Q6eQZEhcnvuKGRkyK9eUO FsH4w4CvVyOaT4WHmsO7V fcnV6VLLgaIWb VZwzOAK8R34gs3O2PIXpI YIxNCH6hIP3tB9scKzikx ogbGVmdDsgdmVydGljYWw rYUtvZ965BPXq mLnjESYadN0xVNHbmLWrh JvlDH4jURZebibjSsYMUj ZpZBtHIRLTSHJ1E7ZxPuk 8QAQdpNeaVT8y pHVfXKcxBa8eeQsvkTbfA J7bRUNskyogDOLnxO4vTJ XvlCXeaPrvNY9nNPAyefa sr859PeCsLMH4 NUKukRQwK4LsoT6qQpDvI UUiQRBmC5UkyEPlPDigA7 44PRlvGbA2FIEyojSvD2B sLWFsaWduOiB0 s6G1El9kPc5sBC7eUXG8A F22LX71nVKub7W2pLB9G7 UuZTMuecrjuwniqBS9UKN uLPUmpA09xENx CJgxPi7hz9U9i779CRSkK ZVlkF99Wv4lyBztFWMdmQ BTyK2zmdyao1xhyubzGgN nOMHxBMf4MLw6 SZDmhObbHhGhWXR0PdI9K FN4cZFbqN3khLwtvumyxB 9wOyc+TLPgBXWssyC0O4I zUsu2DGIbkYif GI9sxHRrCAwpDz3slTfie OlvON7iXOAyniqpCCJurX 4pXDMywECiiNtzNK1yIUG cbuejw714QsYs NSO1CIYwfHHvF8YpsP7wK pUiYNIkVYRvA9IexIAmAD rhZ156PBjcOoW9BJLcwwK oY5HxSLEuzXcl KfC6o6Z8Lr9HMTzJYD95C T40nJHxv5V4bKJ8S7ChCI ZpoccewejsoZR0LLGrWNY hsB13sCOmVZen Kn2pd9I6b741OVEnAWYvv W75Rq2hnAzkJZOwgXRHoN 4uqtpoi9mvcefeVtPbSCA lACz3EVh4ZWOb oUhbNcUsJWE6BkL1TCX9g AUteK0ttFgyvhghrQ3dHg c+U2TtBTP0KEHaz491H2D kPjwvdHI+PC90 LVYlTM44lDKpmHKgz7fow Om7UxDbAFCqISO6bVfxBS fze2UvTNLgM61zjJUzp0Y 6IGNvbGxhcHNl ZzLqxXU7aK0uLXvdnilpp 8ttypncIjube7fzmg21sT 45P07lIHduLYCeDCPkBPJ cBTSfaMzsaq0m oV1gVw7+PPFlfPA3uQR0p T5eDwXbIjY4FRdbM943Xz BsmGWnAipke8yal7xguQw 9IjIwJSIgdmFs eQfgNOJ2n8CaMq95S58zI HdpZHRoPSIyMCUiIHZhbG fcxd1blD5hEp1+LF6wy4b euy30zF67iQN+ CLQiNPU0sSewBRdpUDUkd R0xMJppOfM3YAMmMpNkdG 56aXAdZOlnFo1dbNtrdAn aMW8pKBSiofet v109SsCcg4iqAUSjeCIbM IimLCS8C86xd4U7XORxVD RiATC6zBQ1aD0gpSkyksa gbGVmdDsgdmVy jXyxQBxkBTvuL693JRDyv NttLuTzpEKoP0pvdzXFIO 1lOjwvdGQ+FXDeMHA7gFs gGWouTCAcsD7y ZRJaL0z3CdSxKaR7GLjiQ 2IqehR2ERSchYIzEAOafR YMaB3pgyoai3wiaaewKaG kXHPyYSf1LEu0 KABoxJenQaYeSJF0OdM2P ZT4yRYxcV9utQfpzmlqmH 9wOyc+RklOOjwvdGQ+PHR iEMU4hOmpBBod RDOqkL5dHELfK6x6OfPsG rC1PLqbH9ZvhaA9KJEftZ MuALYrfBFAgL2bektcl3l vcjogIzAwMDAw VJv1JYw3BURhwOahIiBcW IB2EsZ9OQN4dPPlsP1yhI rxfzimfX8hQxh+TVJOOjw vdGQ+PHRkIHN0 qHzbASmmZZBxdK3iRXQlM 9n1KkSyQmQ1TAbkX4Dpkj Z2LEVggZIjTBZfhUZVfL7 mojdlp8vsdgly HuUcSTOdVLm3AEj5CRMhb XinVnUaNVM9GbK7NGQ4uR TqyO5qyWgnpyippP4sHsz +VON7NXA7MQ42 JS29X9GvCbjwxIArvPM+P HRhYmxlIHdpZHRoPScxMD FnHkSqeGinXD9pEn9iXXD yLWNvbGxhcHNl OiB (more content not included)... [facility] Consent Formson 06-23-2021 Consent Forms [id number]#[facility] Dis[facility] Instructions [id number]#1 [facility] Tele[facility]pson Telemetry Strips [id number]#1 [facility] Consultation/Specialist Note on 06-22-2021 Consultation/Specia list Note [...] BIB SCHMIDT [Verified on: 06/22/2021 07:09 EDT] BOBBIB HOLDER Normal [facility] Inpatient Patient Summaryon 06-22-2021 Inpatient [place] [address] Patient Discharge Instructions Name: ENRIQUE MIKE Chrissie : 1935 Patient Address: [address] [place] [address] Primary Care Provider: Name: JERMAIN MENCHACA MD After you are discharged if you find you have any questions, please, call [phone] ext [phone] to speak to a nurse. Discharge Diagnosis: [...] alcohol and/or drug addiction problems; contact the [facility] 12/09 Crisis Hotline -Text 4HOPE br 648445. If you received any narcotics, sedation, or [...] business decisions or sign any legal documents [facility] would like to thank you for allowing us to assist you with your healthcare needs. The following includes patient education materials and information regarding your injury/illness. ENRIQUE MIKE has been given the following list of follow-up instructions, prescriptions, and patient education materials: Follow-up Instructions With: Address: When: Enrique Rutherford [address] [place] [address], [address] [place] [address] Business (1) 06/29/2021 10:45 AM Medications During [...] list. Medication mariana (more content not included)... [facility] Postoperative Record [facility] Phase II Record Summary Primary Physician: Enrique Rutherford DO Finalized Date/Time: 06/22/21 07:37:50 Pt. Name: ENRIQUE MIKE Chrissie Luther./Sex: 1935 MALE Med Rec #: [id number] Physician: Enrique Rutherford DO Financial #: [id number] Pt. Type: O Room/Bed: [facility] Admit/Disch: 06/21/21 05:54:00 - Institution: Phase II [...] Signed By: Karla Moss RN 06/22/21 07:37 [facility] Progress Note - Nurseon 05-0 Progress Note - Nurse Pt discharged to home. Taken to awaiting car via wheelchair. Belongings sent with pt. [Electronically Signed on: 10/06/2021 14:53 EDT] Emily Kennedy RN [Verified on: 10/06/2021 14:53 EDT] Emily Kennedy RN [facility] Progress Note - Nurse Surgical dressing [...] on: 10/06/2021 14:53 EDT] Emily Kennedy RN [facility] Progress Note - Nurse Shoulder block wearing off. Pt able to move his wrist and forearm. unable to wiggle fingers but tactile sensation intact. Circ checks WDL. Pain level 4/10. 5mg Oxycodone given. [Electronically Signed on: 10/06/2021 14:53 EDT] Emily Kennedy RN [Verified on: 10/06/2021 14:53 EDT] Emily Kennedy RN [facility] Anesthesia Noteon 06-21-2021 Anesthesia Note Patient: [...] on: 06/21/2021 11:47 EDT] Rod Ann DO [facility] Anesthesia Note Patient: ENRIQUE MIKE Age: [...] = 50 mL, 100 mL/hr, IV Piggyback, Mail Deliverer LR 1,000 mL: 20 mL/hr, IV Lidocaine 1% injectable solution: 0.1 mL, ID, Once, PRN: Other (see comment) tranexamic acid: 1,000 mg = 100 mL, 300 mL/hr, IV Piggyback, Mail Deliverer tranexamic acid: 1,000 mg = 100 mL, 300 mL/hr, IV Piggyback, Mail Deliverer Documented Medications Documented Aspir-Low 81 mg oral [...] (basal cell carcinoma), face / SNOMED CT 8736474719 / Confirmed Hypertension / SNOMED CT 6014882707 / Confirmed, Active Problems (2) BCC (basal cell carcinoma), face Hypertension Histories Family History: Entire family history is negative. 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 Back fusion (125138958). Chest tube insertion (AVEZAHXhf6p25xQfv8gd ). Comments: 06/04/2021 9:17 DEVIN - Elvi Barber RN left lung 1998 Inguinal hernia (4353963250). Rotator cuff (84033267). Hammer toe (111268934). Social History Electronic Cigarette/Vaping Assessment Electronic Cigarette Use: Never. Alcohol Assessment Beer Comment: occational beer Tobacco Assessment Former tobacco user Tobacco Use:. Substance Abuse Assessment Substance use: Never. . Social & Psychosocial Habits Alcohol 06/04/2021 Type: Beer Comment: occational beer - 06/04/2021 09:18 - Elvi Barber RN [...] / Management Results review ECG interpretation Plan [employer]#( A) physical status classification: [...] on: 06/21/2021 07:57 EDT] Rod Ann DO [facility] MAGR Intraoperative Recordon 06-21-2021 MAGR Intraoperative Record MAGR Intra-Op Record Summary Primary Physician: Enrique Rutherford DO Finalized Date/Time: 06/21/21 09:51:01 Pt. Name: ENRIQUE MIKE Chrissie StantonB./Sex: 1935 MALE Med Rec #: [id number] Physician: Enrique Rutherford DO Financial #: [id number] Pt. Type: D Room/Bed: 221/ Admit/Disch: 06/21/21 05:54:00 - Institution: Case Times MAGR Entry 1 Patient In Room Time 06/21/21 07:28:00 Out Room Time 06/21/21 09:43:00 Anesthesia Start Time 06/21/21 07:28:00 Stop Time 06/21/21 09:45:00 Surgery Start Time 06/21/21 08:06:00 Stop Time 06/21/21 09:37:00 Last Modified By: Brenda Oden RN 06/21/21 09:50:58 Case Attendance MAGR Entry 1 Entry 2 Entry 3 Case Attendee Enrique Rutherford Jacquelyn RN McMurray BELLY DUMP DRIVER/Eliel KILGORE CST Role Performed Surgeon - Primary Process Controller Communications Scientist Time In 06/21/21 07:28:00 06/21/21 07:28:00 06/21/21 07:28:00 Time Out 06/21/21 09:16:00 06/21/21 09:43:00 06/21/21 09:16:00 Procedure Arthroplasty Shoulder Arthroplasty Shoulder Arthroplasty Shoulder Total Reverse(Left) Total Reverse(Left) Total Reverse(Left) Last Modified By: Brenda Oden RN, Jacquelyn RN Burns, Jacquelyn RN 06/21/21 09:43:07 06/21/21 09:43:07 06/21/21 09:43:07 Entry 4 Entry 5 Entry 6 Case Attendee Vivian Newman Regina CSFA Rod Pinon DO, CST Role Performed Communications Scientist Scrub Personnel Anesthesiologist of Record Time In [...] Procedure Yes Total Reverse Primary Surgeon Enrique Rutherfordw DO Surgeon Comment LEFT REVERSE TOTAL Start 06/21/21 08:06:00 SHOULDER - ARTHREX Stop 06/21/21 09:37:00 Anesthesia Type General Surgical Service Orthopedics Wound Class Clean Technique Details Closure Technique Primary Entire procedure No was performed via laparoscope or robotic assistance Last Modified By: Brenda Oden RN 06/21/21 09:43:06 Post-Care Text: O.730 The [...] Entry 1 Ski (more content not included)... [facility] MAGR Intraoperative Record MAGR Intra-Op Record Summary Primary Physician: Finalized Date/Time: 06/21/21 07:33:10 Pt. Name: ENRIQUE MIKE/Sex: 1935 MALE Med Rec #: [id number] Physician: Enrique Rutherford DO Financial #: [id number] Pt. Type: D Room/Bed: / Admit/Disch: 06/21/21 05:54:00 - Institution: Case Times MAGR Entry 1 Patient In Room Time 06/21/21 07:09:00 Out Room Time 06/21/21 07:27:00 Anesthesia Start Time 06/21/21 07:11:00 Stop Time 06/21/21 07:22:00 Surgery Start Time 06/21/21 07:18:00 Stop Time 06/21/21 07:22:00 Last Modified By: Daphnie Barr RN 06/21/21 07:29:09 Case Attendance MAGR Entry 1 Entry 2 Entry 3 Case Attendee YoRod marie Laura RN Daphnie Barr RN Role Performed Anesthesiologist of Process Controller Process Controller Record Time In 06/21/21 07:09:00 06/21/21 07:09:00 [...] start of the procedure: Last Modified By: Dpahnie Barr RN 06/21/21 07:20:09 Post-Care Text: O.760 [...] cannula Flow Ra (more content not included)... [facility] PACU Record Summary Primary Physician: Enrique Rutherford DO Finalized Date/Time: 06/21/21 10:37:04 Pt. Name: MIKE ENRIQUE Ng/Sex: 1935 MALE Med Rec #: [id number] Physician: Enrique Rutherford DO Financial #: [id number] Pt. Type: D Room/Bed: 221/ Admit/Disch: 06/21/21 05:54:00 - Institution: PACU Case Times MAGR Entry 1 In PACU I 06/21/21 09:43:00 Discharge from PACU 06/21/21 10:28:00 I Last Modified By: Isabela Soliman RN 06/21/21 10:36:28 General Comments: Pt awake and oriented. VS stable. Transferred to room 221 via bed. Finalized By: Isabela Soliman RN Document Signatures Signed By: Isabela Soliman RN 06/21/21 10:37 [facility] Nutrition Noteon 06-21-2021 Nutrition Note Pt admitted for scheduled Lt shoulder surgery. Diet already advanced to a Regular, ate 100% of lunch, No wt hx available, denied any wt changes on button machine operator assessment. 06/04 pre-op labs reviewed, mildly elevated BUN noted. Pt at high nutrition risk r/t age greater than 65yr, however, no foreseeable nutrition concerns at this time. To follow. [facility] Operative Report - Surgeon/P catalina 06-21-2021 Operative Report - Surgeon/Physician Preoperative diagnosis: [...] on: 06/21/2021 10:15 EDT] Enrique Rutherford DO [facility] Patient Handouton 06-21-[address] [...] or concerns, please call the office at [phone] -Follow up as scheduled [facility] Progress Note - Nurseon Progress Note [...] RN [Verified on: 06/21/2021 14:30 EDT] Phyllis Kasper RN [facility] XR Shoulder 1 View Lefton XR Shoulder 1 View Left EXAM: XR Shoulder 1 View Left HISTORY: Status post Shoulder Replacement COMPARISON: None. TECHNIQUE: Single view FINDINGS: Normal alignment and unremarkable early postoperative appearance left shoulder arthroplasty. IMPRESSION: As above. Final Dictated by: Eliel Garvey V Dictated DT/TM: 06/21/21 4:52 Signed (Electronic Signature): Eliel Garvey V 06/21/21 4:54 pm Technologist: MARIELY BENITEZ [facility] Comment on above: Order Comment: defau lt status post shoulder replacement Coding Summaryon 06-18-2021 Coding Summary HTMLBase 64 BhottmpoZRg4gYt+PGhlY WQ+CB4HQODaO57qeANxhQ 9BV1hGSY0EHLFZYOXUHI4 CBJ8uuCG6VFppA5PyevNp BhkpkURkXL56QIv3OOW6w JeuZYuszZ3ugOPbY6f5Sn PaVV04zA59JEzjXVOqKnG 3LjZpbjsgbWFy L4ojIpLtfGClQrt+PHRhY mxlIHdpZHRoPScxMDAlJy DosRhvTR5qEq0dGJInYGM vbGxhcHNlOiBj g9xpQERvTPmfTU7bkFwnG 0FqhKZ0LCHeh1k8Cq93pX I+IPYjFBZ1uPkxSDnjj45 5LgByk7ccSXL7 pHEyIPlsKQM1O84ge7R6P STxGQMtHAC4aDE4wJ7baM wsgessC1VnaCViOnK3OMN 6vJJzvT7fkMbo xbgemL0xLhh+Q91TWO2MV GNZCE6YXog1U3YlHchcoD I+FO51JWFlXL80aPYtiZA zd7jssDc4CzQy CFRaICO6fBwnSRevu5HkI HUrK30rwUFgs8J8IWWxaN ykpRDwNmRwcQC8jN3kJCq bqldww3enbade Retuv7hptn63sD81B30oO RyqJGNtQUP0QVDdESYajL holn2svZ6xHj1+JBewi7g gu5gpyJf6FmJi ECDdoqKqlLeyVYW0o5MvL l41I6FxpBvof0MrAjq9ke 58tUSkg8K3jFB4RIvbEEG cwX6xHXqbHaB9 VJNpLfFahI98jIOhZAlyK d3qpRfhhGkqMC6tIYNzdj lbWDAhbH7yHADboIKjnSf nLF9gDJFcjveo h150MiKmJLP3WQVpzIYdC 6LqyK0gPmNmSBAhRAAgT9 VooBGfFTfeF083ETfqTxB 3JRSueeSkB8Zk PLJzwHydYoQ5a8T0Li0Vs 3AmfzbgTNN4OVdoBOY4Yl U0XqGlHgC5B5OrLoj4AKD veLxoIS8yK3Vg WAJzjkadwteoqHX3GFUjC JOjkE67gLAdJPndQr7by9 W5c010WIOaZSVesC88Wx7 udDogMTBwdCBU cS2bpytrh0szxjxpGoRqI XLrOJf9NOo0KCHthTyaNj HeYRC2PcT5CXL7fJViaT4 lcBqptumexI9l Oyc+C52cqJ7yTYL2BAA0r utcCWCthlPyFG60TB16Y0 RyPjwvdGFibGU+PGRpdiB eaCtzJE2nUuHk p0zbe3QbWMmqH0VqQBVoO FioQrc9EGQtUVD6zUP0hJ 9rDTCsVUyae6Q3aTZ8M7X zqoWsfz5ks0wq CQIiYBmtO89ktNAni7R0P MJmrYN3IBNqyRbiFvZusY 93Oyc+HLGtlUepj6SuQse gt7lxd7bofNx6 DpDmWSVpkpKzpNsqSYU1e 1IhTp93G36jSPsyVIQwRY NoGBIyMQLukQhtow1fcS4 wIi8+PGNvbCB3 oGV8hF7rYTZjCzR0DInwY 719RyTfhAGlAimzj7oyc7 zhkYh4NxIcXECnlmSjaBn aORI3c3PxCt58 T52dZAyeGOZbSALgNWUdT VDffJgutj1yzT6hVx3+PC 8be9mksc94jN68dGI+PHR mMJV2eIpdSJwv WMJptK0fGOryXtD4VVFrF yHfpY07oNLbLAowIp5feY modOuvWL2sJMAvcctfo13 2ImDji1vrSGMy dRAfOTpoTTP4J02zp1S3K LYuIQJrJAI9mPP7aO1seX lnbjogbGVmdDsgdmVydGl yMAonLIjxU610 IHRvcDsnPlBhdGllbnQgT uTdEPa7B1YjXji4IAUruD knOC6xaZZkTQloNf5csEd lmRzbTJ2yOLGi hupvj524ZpRkb4vmVWRmd AVvABjlBUJ7X40ni0Q5KZ BcLOLuCIE8nNQ3cU6uyLb nbjogbGVmdDsg wmMttEotOQphPHebM146G HRvcDsnPkJpcnRoIERhdG E2QW05PE65eCAqf2T4aFN 9W6EiTQZkjgts wzkvxSX4IUVqSGMznQ35W j7knQlaRx0cMBNeAFP3LR SdaBXhQ8XojQ7mAsPdFQF lQZXqE1ObuXLl TDbmV681DFppZrB3MLKci bSfP9EjAQOltVokOwZ8j8 D5Ae0XV0S6XL67RG63pAS cl7E7zOX3C1Qo XTQdqutzjfilnYH3EWCmZ DStuG87Po7ikHjlWs2mBF AaGHA0CDOjxGJsC1ZtuB7 yOiAjMDAwMDAw W6WapROaNZtcQ694NDhgT eR0UKWlzyPzL4HfJCAkjQ arTiL5w7G8Uo4YQTb9NE2 9VC15kDAch8A2 aMV0S8BcKYEifbjttixkt FH6DSZqNAKfoX92Su8cyJ vpWm3nRCUhNAS0YAYxbSB rL9MacH8sSnIg RUFoJLUwJ9WjiAPsTXwcX 213BNmhNoX5BEBojtGoF4 NgUEPjqYqhMaM6w1G8St5 ELDYyVI04JSS6 oDE2UJ32GF82Q7ZwTrmom GFibGU+PHRhYmxlIHdpZH RoPScxMDAlJyBzdHlsZT0 uOl0sDODzACYu qYohfWTgJnUhu0tuMCCcG OfhYI7nrNlaZ0GsgLO6KY Jlp4s8Nn90S35wF4MvkBG +GYZwyBL3xWN7 bL3nGgXqGgL8NZzxL065T fQivORgGkljf1jpo5sxhZ z3VcO7VAIgtxGumKxbLQG 7e8GyJb50A05w IHdpZHRoPSIxNSUiIHZhb Arhpu2yeQ0wSj6+PGNvbC K3lAE9bV1jPjDpXlS6BXp uH535LlCneDSq Zfteg8ikm8rurTt8TpLwA OOaboFfmGmtWJD6f8CgLl 05V5GxmFrom8KoPgs6nl7 0uYBlh9I0uSC2 M5AuDOQexjxqjZZbzZuwZ F5jOTBkxpacPVRazL7uRR WtG8m5QeBoUsF8ETjiF4D dbcM6RQIaxWAi WRrpVBW6Q65dl3D8NVTaP TVrURB9fTR7mB3ovZwogp ogbGVmdDsgdmVydGljYWw hZYfbX409GHQj oQpgIHXgcK6zRDMjeIMws LenTG7gEVBurvmzLlJNFo BvPLhWFOTFOGQ5I1DrEwz 8RRNigGasZR4u bYCyGRqjXf4lhQuhsYkgK J7jIRDoucfpYGExqF0sJA IncGJrqImzWW5hBTVelnw dt441BtKlLWV9 RNQvoAEfB2FeoD4nMfVeL VJkHVKjD4WrxHRdDZsxC5 98JUsnMaN0XYPvvqBkM4T sLWFsaWduOiB0 t9M4Ma1vHn2vRF5dPGO8R G99XV93yCOxu4J2qZW1W7 XrZWPvfnurgewbwTQ3UTT cJMEauN50vWCj ISrlCc4wd8K7j297OMWhR JDgvW74Sy4bkZieMQZgcP OKlA2ljivsd9elcvbgKtC rCCAsIYp7FMw2 NLAiuQtgWdLsUDZ6SdS0L UK5lFSeoB6ryElvsrplwX 9wOyc+DHJzGXTzaiK7V6H tCwq9PREawXfc LN8ziBZvHHiuIs3dyCocn VerQE9oZRWdiaupWBDzxT 1sPZLthHUytHwiFX4xBFB zctapb271HlSl VPH9KSQsaVCmL7UepT8qR qBhTXJiHKDhG0IwuXTaCI yaJ931DMnwNbQ7QNDmwmI rG4WpZKXjdQom CtI2q0K2Jy5EAQsDMK91Z P98iACjm7Q6zAZ6V0WdGX FpkwzdckpgkHL3NXViDEV gvX83sFDaXJsl Af1nq2N1f838FCLtIOGdy H51Rt4zxEwlIOAplIKExJ 6mchssy0ngqnvkUmKcCKH iIYv6KEd4MVCc aCbhLlAoXJO0RgL6SOW4g ICpuN4opEatctjajZ1dYa c+F6T0E0ChSgfgaKM+PC9 7UWImWF59jKZy qHGjr0cebOc6ZyCxOCGfO KC2rJhhKIvis7VhHVDhN2 2tdAQoc1H5ZVKbwIomgYM gNhDdcDP6bO8v KWhziaapg4tfguebHezes 4wwbh87oA26J15oHQfxQU RoPSIzMCUiIHZhbGlnbj0 wyQ6sVo4+PGNv lJY6yVB7cK6rVlSaIqY1B WaeE362HgNyqCXyAidgl4 inl6sccAg2YfKhNPHhtxQ dmXznYSP2z7Cs Hq46J84gADxqECRoUFCkM MFfGIItzBirxc1fyW0mMg 8+RM5it7rwyf40uJ39lMX +SUUjERA3lOqz UQbiAGYxkO5fRGbbKbG0H JZxEfAbxS61dREwRXhqUj 7sfTxgzQynEI9qKRPucbe vi131XvGms3hc AWReeMSuFDybGNV3M35di 3I1PBQhOLGaVGQ0rNN9uJ 1hbGlnbjogbGVmdDsgdmV ydGljYWwtYWxp U249UATqxPxcIfArrYBkP 3kuxgPAIM8kUvtriVH+PH MsRAK5hNzyTYdyBGPqvE6 bJVVjY5f4SmUu ZiK8EJauD9YankF4JQDgx YVzEMDspUXZyB9lhwbwg7 qrgmscSuHmAKHdLLn4OMw 0LWFsaWduOiBs MAB9IrG6BFT8hEUzvD2lp ZvfpcqqdH5wXio+RklOOj wvdGQ+YSMwAID7cOwjOBi nPZHhdJ9yOJRd L4t9AhBgLhJ7MUxtY2Lmc fS8OIUliYOpIBUbcKSHlD 0kruwua0chouhhDpTkZUW oWJi1BHq8CAAe oWbkSzFaZUO9EyV4TBF0y GUpaT1weDfcjxvyaF1pNb c+TVJOOjwvdGQ+PHRkIHN 0eWxlPSdwYWRk kB2iVWMaC1a8WmYvAsQ4U QjfF3OpwwS2BFVavTXrCA JaaCFYrR9eoojxi5xldxj gIzAwMDAwMDt0 JWp9AIIudFjjGaWkDPW0R vV0VYC0iTAhgH5qvUwodc keyC2uRxh+HZM6YBP3IL8 2QJ13Y5TyFlnc dGFibGU+PHRhYmxlIHdpZ HRoPScxMDAlJyBzdHlsZT 2sLp6eEGFhOJBqzRpxyDW nNhIro0ozUVBm ZTs (more content not included)... [facility] Progress Note - Nurseon 05-22 Progress Note - Nurse Pre-op call done, instructed to arrive @ 0600 on 06-21-21, NPO after midnight-verbalized understanding. [Electronically Signed on: 06/18/2021 09:26 EDT] Ayah Gracia RN [Verified on: 06/18/2021 09:26 EDT] Ayah Gracia RN [facility] 2018 Novel Coronavirus (CoVI D-19), BART LCon 06-17-2021 SARS-CoV-2 (COVID-19) RNA BART+probe Ql (Unsp spec) Not detected Invalid Interpretation Code Not Detected [facility] Comment on above: Order Comment: [id number] Result Comment: This nucleic acid amplification test was developed and its performance characteristics determined by [employer]. Nucleic acid amplification tests include RT- PCR [...] detected) result in this assay. Performed At: [facility] [id number] Suzanne Durham PhD Ph:[phone] Performed By: #### [id number] #### [facility] (DEFAULT) [address] [place], [place] [id number] Advance Directive Documentso n 06-07-2021 Advance Directive Documents [id number] [facility] Coding Summaryon 06-07-2021 Coding Summary HTMLBase 64 IefvwmnmLKa3vQi+PGhlY WQ+VE7FUJKmK50pdOCziP 0ZM9rUIN6TPAYHHNVUZF8 UXY8chWL2URkaB3OqvwWi QleezJQvTX73PCb7QHD8i IwoXMmimH0xaCUyV4n6Sj RyTH71mB44FEebDPDnGdX 3LjZpbjsgbWFy U4mkOdXxtBBuMhw+PHRhY mxlIHdpZHRoPScxMDAlJy NlmQqmBQ4uRq4lLCMiIOK vbGxhcHNlOiBj k1ymJUTnOMedUW0xdHvqP 9OrsNX9VDLiw7p0Jn32uD I+STZnDTX7uSzoMQmsh68 8VnIdn7zoNBI8 aTReKPgaDBC0K04eb7B1A KQnLZSqUPX9eRS7xW0yrC wbkjxkX2WisPZpEkV3KCZ 7rYFghY9ctPiv mmxclJ2eYvz+Z82VKW4MW ZDWKT9TCcg4R7QgUdszfC I+RM20EQOeAQ62sOSagQB vm4hjlBx9GcFm IWBzDVX2pLxhWQbbw7CuY BHjG76fgCWen7F5TNBnkE rscGZeMhLmxVU9yD1jGUm qxiyna1bijbfl Elmic7sptn11bT85B17zB FeuJWLkHDZ7GTEfRYLwcB opdj6okU1lRy7+KFrsr9s ms3fwpHu7XbHu JYNfxuEbuGeqYBW4f0JfB q85G7ZnxEogf7OqPwk7os 62uFKxh5B7fSR9HUyoPOE xiY0bHArmEsO5 LFHaGiNstB23zAEtHCpcA m2wnAmisGpxFU1pDSHolo afMCVubV2vFDKkfJSgxVg lPW1gCNPbcmah d919EwMsMXI9XFFfyQWqA 1KdqP6dEsHoASMcGKTjM0 JmxLNgWMhcG476TPdvHzH 4VMUcdqTrK3Yt KYCdmPcrGiP4j6S2Vz9Cg 7HfboglFKG7UWhnKHT0Iz J1JuPuCiG1H2BiBge1CCI ykVqkFR2oY6Vb MXJshjppequooCL5PDJyY IHaqZ98iOBrLNnqXm3jf0 U2g954BNFzKJAjcL79Na0 udDogMTBwdCBU mA1eqemhk4podjeuVeAmT QWzLPm4JDk0TSQwqEumLy ToRDU9QnX8QGZ2kYJyjT4 atVgkhipzhM4v Oyc+R05cqW5gCZI0ENI9p imaAGWifaVtVS33NN89N9 RyPjwvdGFibGU+PGRpdiB bpYxlGT9iOhOf n6nws0JhEPkqW5LgMJCiP GgzQwz4HDNeEWT0kBU6qF 1mBSSqAZnxp4W8wJZ5G4M vnlKqyg9ev8zg AGQgXXqsV85tqPFhe0T3R WIhuLN9OGAsdCsrUoVlgK 93Oyc+NEMxeTlfg2KeFib ky6xty6nrbGa6 VxVeBZVxxiMyuCrwFPH7p 9EgJu96C95fOSvkHDHzFN NbPVNmGELueYhxmv2gnI2 wIi8+PGNvbCB3 gYO4cO0yDLHbIfW1USxvV 523SdSitJSmNdxof1cjk0 hqmMk4HoTdHCEzlyEoxFv eROR1y7TuVi99 G10eLTviCMHhXDZuXKOcU DDqxFpsvx7qoH8lWz9+PC 7de4dgrr02tJ32gDK+PHR nLVU8pKmeWVyz MLBisT5sHLzvXbW0YNKiX dSjpX54qGEeTEbbCs1zkG daeHamND6oBTSczjdss43 6BlKpi7trNHGt qOQhOEdkVXB4X91pw2Y1P TDuQCEbSZK0hCL5bI9bqQ lnbjogbGVmdDsgdmVydGl mFUejBZlaT530 IHRvcDsnPlBhdGllbnQgT sAhLHb7H0HoHhn5EODcbW cbJN1pgEOmPPkuTw6xmYg dwFoxJN0hRCQs yjuax441YdOio9dhTORho FFjGFxlBTC6N86im8Q6CQ OmERDnYYZ6dKH6vP1pbCl nbjogbGVmdDsg odFetFkxDChoYKqcP137N HRvcDsnPkJpcnRoIERhdG X4MP65CG69sSQfi0S5pWX 4B5KuRREdhgmk gzlziOK7WSJtMBNhlE21V f0pyWukFy6nBDZnSAL6WJ JtcDPoD3JsrJ9eQlCfSMQ jDWQlJ7TvdKCt IHnmC670JGsaVyM4DDYbf qOwO0IbPUAzaYmjVsE5q4 F0Fp8WL6N6RN72PN71hEU hw4O0zMH8S8Sr MGBsoexguuuhvSP7OMMgS FPnuK55Oe9vbLlkPf0kAD EcPPE0OQJatVVeU4BwkP5 yOiAjMDAwMDAw N0TvvOWzNHjcL249DQhdN iL8OLJxgzWpS1FjXGJgxT tmInA2d2R6El3TBXu3OG4 1HN07lGUgb1Q7 sGH4K4SaUDNvkpnkiyejt VP1TNLcAOZtlK26Ar9zlR akRa6iSMAcPVO6PDVhuQF lY5OsjS4gLiJx AMEvUIJvZ2ImoBSmGKnhW 380VTujVeS8QMJauuSyN4 DuPLZvsMefBuT5f2U8Eo2 AAEBbEE64MCW4 uPZ1AJ60YL24Q9JyMasjs GFibGU+PHRhYmxlIHdpZH RoPScxMDAlJyBzdHlsZT0 uFw5nSSCyWYRi zQykhLNrZeVew2fsLXMaW HuxUK3wyFctR7DlpJX9AL Abk4h2Si59U26bE4AwqCW +GTPpaFI9gPY8 fY9rDwFwXpR5MCpxY229V cJtrPOtJsfls3syd8uxwB x6LeG5WMSnmyApvHpcYYW 0i9QaZh36G30p IHdpZHRoPSIxNSUiIHZhb Lhwsk6yuD8rJi2+PGNvbC D1eXG4tF9hYuHxYwO3UCl uX388WiQpjEIz Mdxox7gvb6bgzCf1GuYcC KQryxYnmRznHGN9k8WbKi 02U1ZunLlql7XiTyl4aa8 5oNAwg8T2eEX5 Q5JyUQApjwhtfCWveNqpL J7wKFTwgikrLWBzdA6oTJ FqZ9d3GzCuTpK0IWueJ8Y kbtX6KSNfmKOa HJjuIDU8U68fj9O2NWMyA YEpLCT5xWS2xD7qdVaczg ogbGVmdDsgdmVydGljYWw mCHppX224VIPu mMhgTZWdnF0mLVHluRXax ZgbRO4yHEEnzskkGpIZTp GsUJhKTHGEDWR5V3AiHjj 4YEYtcLgrSV7t dACyFMdeCc5aaEvcnXqfP U9xVXTqadnbTPCvpN7pLY QgtYFoiByjCG6nCFNllkg pz297HzCjHKB6 BPYygBEdM8IzwT8pXqSxD YAaRJGhW8VkaXGiTPnvV0 21OXhjJkK8WOUsflLxL2D sLWFsaWduOiB0 i4T2Vh6rCq8cWA5aNAL0Z I83KK88aLVnj4D1hVE2Q5 UmWYJmmfxpsrbygGY8VJQ fPSYroT58nUMp AFebEu6mh8D9y215IRCrF AGvwQ96Vp5brSkqSKUtbY GUdI2cvdvnv9ejgdbaUhV kVTDgUJs2LFn8 LTMxdVgeXgUqKNN4BwT1N VR6nAKvbZ6mdRfdawaqgS 9wOyc+MLQcSBKjvkV2U1O sVmb9MLUlgQox OQ8dmKVqDGbeBy3kqItnp LkfMF2vDAJzzxvnRQCqzS 9cLSYeyQQdmFdaBZ8fSPN lscskx922IkZc AIF9IWRdtLUrO0QbxI1wG eCvLKQnJZTeA5BtcKHtAJ luG283UNlwJaH5PQMjdrQ qA3EfZSWnhLxa IqS8x3Q9Gn5NTCuTHN25Z M31aGRnx0J3vHJ9U0ZhJS KcqasgnuspgBT6XSKtZXH nzU95aCBeITka Hj5xr2O3g514SIWrBAUfe L36Dh5fmFlhDZTqnBVWrC 9yxsmug1vciasqAeJkYTA pVKe4FRe1BUWs kUvuNvJvFSF3GiE0CXF4l SKeaR5avKhjusefaX4pJo c+P7J3S2PeGqqfdMB+PC9 2TGRfFE13aGGl tBLzi8pspPg5PmHtJMFwI NF6gOncTHbki7WyYQVwX2 3klHWlu9U5KHOzuIynkBW gTaNljBQ3gT9j KJwgkjbmy1pjakojKlknk 8tnch07qX23W58hWPykUM RoPSIzMCUiIHZhbGlnbj0 kkF7jSw4+PGNv fLR8mQP3hE6nQvBeDvQ0O MopE114MbHmtFOqPqzds5 nzv7gdyHz6GdMfTWNgiqR otCydUBD7s6Bh So34Y59hKCkrEMBgVSEuX BLkPLNmlMoaml2mqU0lSg 8+UD9lf5wykh56pG28oUJ +JQRuBKZ8oEid NYwjWJWwlB6yNCcjLrH7K IMoDfZqqC62pRShHFzpNe 7gpNmeiEhgVU0qORJubtr ij609WbLls7jt VFIswAAqNMrjVRC1G08bx 3R8GWAhRNErRIR4lYC7jM 1hbGlnbjogbGVmdDsgdmV ydGljYWwtYWxp S968ROHcoDtwDuJkhKDpK 5duamIMXM9lVarltDN+PH YkJLI0sBqqYCqkFBWuxT7 iHCKzN9d4CrRx EoG6AHynI2YsrfF7NBUbv SXwJKOpaWTJfJ8scjgsc6 zevwnlYdRpNWBsSGu9BUf 0LWFsaWduOiBs WGQ1AqV4XZC3kMHicA3or WfsczsitH1fRos+RklOOj wvdGQ+WGEgCAR2tWohPBz jCJFkmJ3lCDJu S1s6LwIgVzD0BNtfK0Rvr yZ3UTNemDVnIWWlwNUUlN 3iyxbce4dcxbdcFcRbERL uLAe9DXo0VULs sZnmQtWsUDX9JrF0CNU6m LCwaI3rhJqxhufvqO3tHy c+TVJOOjwvdGQ+PHRkIHN 0eWxlPSdwYWRk pG9dPKTeI9p0RnTvPpV8H EvkI0RiytU8RQSbnOSfEK FfdVSGxN6gtixhv1jnskc gIzAwMDAwMDt0 TRj4CGBlcEidKfLlJNH8P hQ3DNS6qFTuuP3xhKfvcr gxsA0rJki+TGD3TMR0FD2 7VI25K8CzZube dGFibGU+PHRhYmxlIHdpZ HRoPScxMDAlJyBzdHlsZT 0eBc0iOBBxUVYgkIfkjUE lGgErm7fzSAYf ZTs (more content not included)... [facility] Progress Note - Nurseon 05-21 Progress Note - Nurse Chart reviewed by Dr. Garcia and no new orders received. [Electronically Signed on: 06/07/2021 15:13 EDT] Isabela Winters RN [Verified on: 06/07/2021 15:13 EDT] Jourdan KEN, Isabela Nelson [facility] Provider Orderson 06-07-2021 Provider Orders [id number] [facility] C MRSA Screenon 06-05-2021 C MRSA Screen Negative [facility] Comment on above: Performed By: #### 1 [id number] ####[facility] (DEFAULT)[address] [place] [address] .Auto Diff 1on 06-04-2021 Auto Story % 13 % High -12 [facility] Comment on above: Performed By: #### 1 [id number], [id number], [id number] ####[facility] (DEFAULT)[address] [place] [address] Baso Abs# 0.0 x10 Normal 0.0-0.2 [facility] Comment on above: Performed By: #### 1 [id number], [id number], [id number] ####[facility] (DEFAULT)[address] [place] [address] Basophils/100 WBC (Bld) 0.8 % Normal 0.2-2.0 [facility] Comment on above: Performed By: #### 1 [id number], [id number], [id number] ####[facility] (DEFAULT)[address] [place] [address] 46319 Eos Abs# 0.1 x10 Normal 0.0-0.4 [facility] Comment on above: Performed By: #### 1 [id number], [id number], [id number] ####[facility] (DEFAULT)[address] [place] [address] 70734 Eosinophils/100 WBC (Bld) 2.3 % Normal 0.9-4.0 [facility] Comment on above: Performed By: #### 1 [id number], [id number], [id number] ####[facility] (DEFAULT)[address] [place] [address] 83197 Lymph Abs# 1.4 x10 Normal 1.3-2.9 [facility] Comment on above: Performed By: #### 1 [id number], [id number], [id number] ####[facility] (DEFAULT)[address] [place] [address] 11713 Lymphocytes/100 WBC (Bld) 28 % Normal 14-48 [facility] Comment on above: Performed By: #### 1 [id number], [id number], [id number] ####[facility] (DEFAULT)[address] [place] [address] Story Abs# 0.6 x10 Normal 0.0-0.8 [facility] Comment on above: Performed By: #### 1 [id number], [id number], [id number] ####[facility] (DEFAULT)[address] [place] [address] Neut Abs# 2.7 x10 Normal 1.5-9.2 [facility] Comment on above: Performed By: #### 1 [id number], [id number], [id number] ####[facility] (DEFAULT)[address] [place] [address] Neutrophils/100 WBC (Bld) 55 % Normal 44-88 [facility] Comment on above: Performed By: #### 1 [id number], [id number], [id number] ####[facility] (DEFAULT)[address] [place] [address] Standardon 06-04-2021 eGFR Non AA 58 mL/min/1.73m2 Invalid Interpretation Code [facility] Comment on above: Performed By: #### 1 [id number], [id number], [id number] ####[facility] (DEFAULT)[address] [place] [address] eGFR AA >60 Invalid Interpretation Code [facility] Comment on above: Result Comment: Photoengraving Sketch Maker martha Kidney disease could be indicated at eGFRs of less than 60 ml/min/1.73m2. Kidney Failure is indicated at less than 15 ml/min/1.73m2 Performed By: #### 1 [id number], [id number], [id number] ####[facility] (DEFAULT)[address] [place] [address] Anion gap [Moles/Vol] 18.0 mmol/L Normal 5.0-19.0 [facility] Comment on above: Performed By: #### 1 [id number], [id number], [id number] ####[facility] (DEFAULT)[address] [place] [address] 36736 Calcium [Mass/Vol] 9.8 mg/dL Normal 8.9-10.3 [facility] Comment on above: Performed By: #### 1 [id number], [id number], [id number] ####[facility] (DEFAULT)[address] [place] [address] 44358 Chloride [Moles/Vol] 96 mmol/L Low 101-111 [facility] Comment on above: Performed By: #### 1 [id number], [id number], [id number] ####[facility] (DEFAULT)[address] [place] [address] 52445 CO2 [Moles/Vol] 27 mmol/L Normal 21-32 [facility] Comment on above: Performed By: #### 1 [id number], [id number], [id number] ####[facility] (DEFAULT)[address] [place] [address] 01029 Creatinine [Mass/Vol] 1.19 mg/dL Normal 0.90-1.30 [facility] Comment on above: Performed By: #### 1 [id number], [id number], [id number] ####[facility] (DEFAULT)[address] [place] [address] 86143 Glucose [Mass/Vol] 93.0 mg/dL Normal 74.0-118.0 [facility] Comment on above: Performed By: #### 1 [id number], [id number], [id number] ####[facility] (DEFAULT)[address] [place] [address] 78663 Osmolality 277 mOsm/L Invalid Interpretation Code [facility] Comment on above: Performed By: #### 1 [id number], [id number], [id number] ####[facility] (DEFAULT)[address] [place] [address] 91464 Potassium [Moles/Vol] 4.5 mmol/L Normal 3.6-5.1 [facility] Comment on above: Performed By: #### 1 [id number], [id number], [id number] ####[facility] (DEFAULT)[address] [place] [address] Sodium [Moles/Vol] 136.0 mmol/L Normal 136.0-144.0 [facility] Comment on above: Performed By: #### 1 [id number], [id number], [id number] ####[facility] (DEFAULT)[address] [place] [address] 90644 Urea nitrogen [Mass/Vol] 27 mg/dL High 8-26 [facility] Comment on above: Performed By: #### 1 [id number], [id number], [id number] ####[facility] (DEFAULT)[address] [place] [address] Urea nitrogen/Creatinine [Mass ratio] 23.0 mg/mg High 4.6-16.2 [facility] Comment on above: Performed By: #### 1 [id number], [id number], [id number] ####[facility] (DEFAULT)[address] [place] [address] CBC w/ Auto Diffon 2 Erythrocyte distribution width (RBC) [Ratio] 12.4 % Normal 11.5-15.0 [facility] Comment on above: Performed By: #### 1 [id number], [id number], [id number] #### [facility] (DEFAULT) [address] [place] [address] 27575 Hematocrit (Bld) [Volume fraction] 45.9 % Normal 34.8-51.9 [facility] Comment on above: Performed By: #### 1 [id number], [id number], 5778831 #### [facility] (DEFAULT) [address] [place] [address] 70929 Hemoglobin (Bld) [Mass/Vol] 14.8 g/dL Normal 11.8-17.7 [facility] Comment on above: Performed By: #### 1 [id number], [id number], 9015559 #### [facility] (DEFAULT) [address] [place] [address] Instr WBC 4.8 x10 Invalid Interpretation Code [facility] Comment on above: Performed By: #### 1 [id number], [id number], [id number] #### [facility] (DEFAULT) [address] [place] [address] 01519 Man Diff? Auto Normal [facility] Comment on above: Performed By: #### 1 [id number], [id number], 7503434 #### [facility] (DEFAULT) [address] [place] [address] 77376 MCH (RBC) [Entitic mass] 32 pg Normal 24-34 [facility] Comment on above: Performed By: #### 1 [id number], [id number], 6806345 #### [facility] (DEFAULT) [address] [place] [address] 96698 MCHC (RBC) [Mass/Vol] 32 g/dL Normal 26-37 [facility] Comment on above: Performed By: #### 1 [id number], [id number], 7448298 #### [facility] (DEFAULT) [address] [place] [address] 70582 MCV (RBC) [Entitic vol] 98 fL Normal 81-100 [facility] Comment on above: Performed By: #### 1 [id number], [id number], 4377644 #### [facility] (DEFAULT) [address] [place] [address] 15984 Platelet 221 x10 Normal 138-427 [facility] Comment on above: Performed By: #### 1 [id number], [id number], 7943231 #### [facility] (DEFAULT) [address] [place] [address] 03826 Platelet mean volume (Bld) [Entitic vol] 8.6 fL Normal 6.3-10.2 [facility] Comment on above: Performed By: #### 1 [id number], [id number], [id number] #### [facility] (DEFAULT) [address] [place] [address] 77573 RBC 4.68 x10 Normal 3.70-5.30 [facility] Comment on above: Performed By: #### 1 [id number], [id number], 0250591 #### [facility] (DEFAULT) [address] [place] [address] 89315 WBC 4.8 x10 Normal 3.5-10.5 [facility] Comment on above: Performed By: #### 1 [id number], [id number], [id number] #### [facility] (DEFAULT) [address] [place] [address] 20644 UA w Culture if Ind Standard on 06-04-2021 Breakpoint UA Normal [facility] Comment on above: Performed By: #### 1 [id number] ####[facility] (DEFAULT)[address] [place] [address] 09142 Color (U) Yellow Normal [facility] Comment on above: Performed By: #### 1 [id number] ####[facility] (DEFAULT)[address] [place] [address] 52809 Culture? No Normal [facility] Comment on above: Performed By: #### 1 [id number] ####[facility] (DEFAULT)[address] [place] [address] 24532 Glucose (U) [Mass/Vol] Negative Normal [facility] Comment on above: Performed By: #### 1 [id number] ####[facility] (DEFAULT)[address] [place] [address] 24622 Ketones Ql (U) Negative Normal [facility] Comment on above: Performed By: #### 1 [id number] ####[facility] (DEFAULT)[address] [place] [address] 51893 Micro? Not Indicated [facility] Comment on above: Performed By: #### 1 [id number] ####[facility] (DEFAULT)[address] [place] [address] 42115 UA Bilirubin Negative Normal [facility] Comment on above: Performed By: #### 1 [id number] ####[facility] (DEFAULT)[address] [place] [address] 94358 UA Blood Negative Normal NEGATIVE [facility] Comment on above: Performed By: #### 1 [id number] ####[facility] (DEFAULT)[address] [place] [address] 51119 UA Clarity CLEAR Normal CLEAR [facility] Comment on above: Performed By: #### 1 [id number] ####[facility] (DEFAULT)[address] [place] [address] UA Leuk Est Negative Normal NEGATIVE [facility] Comment on above: Performed By: #### 1 [id number] ####[facility] (DEFAULT)[address] [place] [address] UA Nitrite Negative Normal NEGATIVE [facility] Comment on above: Performed By: #### 1 [id number] ####[facility] (DEFAULT)[address] [place] [address] UA pH 6.0 Normal 5-8 [facility] Comment on above: Performed By: #### 1 [id number] ####[facility] (DEFAULT)[address] [place] [address] UA Protein Negative Normal [facility] Comment on above: Performed By: #### 1 [id number] ####[facility] (DEFAULT)[address] [place] [address] UA Spec Grav 1.020 Normal 1.001-1.035 [facility] Comment on above: Performed By: #### 1 [id number] ####[facility] (DEFAULT)[address] [place] [address] UA Urobilinogen 0.2 mg/dL Normal 0.2-1.0 [facility] Comment on above: Performed By: #### 1 [id number] ####[facility] (DEFAULT)[address] [place] [address] Urine Source Clean Catch [facility] Comment on above: Performed By: #### 1 [id number] ####[facility] (DEFAULT)[address] [place] [address] Encounters Encounter Date Encounter Type Care Provider Facility Start: 08-21-2023 End: 08-21-2023 ambulatory HERBERT JARVIS Not Available Start: 08-14-2023 End: 08-14-2023 ambulatory Alberto Pacheco MD Facility:[facility] Start: 08-07-2023 End: 08-07-2023 ambulatory Alberto Pacheco MD Facility:[facility] Start: 08-01-2023 End: 08-01-2023 ambulatory ENRIQUE RUTHERFORD Not Available Start: 07-27-2023 End: 07-27-2023 ambulatory ENRIQUE RUTHERFORD Not Available Start: 07-11-2023 End: 07-11-2023 ambulatory ENRIQUE RUTHERFORD Not Available Start: 06-13-2023 End: 06-13-2023 ambulatory TIENFÉLIX MENCHACA Not Available Start: 06-06-2023 End: 06-06-2023 ambulatory ENRIQUE Nelson SANGEETA Not Available Start: 06-01-2023 End: 06-03-2023 Emergency department patient visit AGUSTIN [facility] Start: 06-01-2023 End: 06-02-2023 ambulatory JERMAIN MENCHACA [facility] Start: 05-04-2023 End: 05-04-2023 ambulatory ABEL SOLIS Not Available Start: 04-20-2023 End: 04-20-2023 ambulatory ABEL SOLIS Not Available Start: 04-10-2023 End: 04-10-2023 ambulatory JERMAIN Wan WELLSA Not Available Start: 12-17-2021 End: 12-17-[address] JERMAIN MENCHACA Facility: Payers Date Payer Category Payer Medicare 2023 Unknown 1958 Medicare [id number] 1958 Unknown [id number] 1935 Unknown [id number] 2.16.84 0.1.051649.3.579.2.593 1936 Unknown [id number] 2.16.8 40.1.202364.3.579.2.1286 1936 Unknown [id number] 2.16.8 40.1.999161.3.579.2.1286 1936 Unknown [id number] 2.16.8 40.1.599238.3.579.2.1286 1936 Unknown [id number] 2.16. 840.1.700169.3.579.2.196 1936 Unknown [id number] 2.16. 840.1.704370.3.579.2.196 1936 Unknown [id number] 2.16.84 0.1.364316.3.579.2.1258 1936 Unknown [id number] 2.16.84 0.1.779429.3.579.2.1258 1936 Unknown [id number] 2.16.84 0.1.866789.3.579.2.1258 1936 Unknown [id number] 2.16.84 0.1.812050.3.579.2.1258 1936 Unknown [id number] 2.16.84 0.1.757808.3.579.2.1258 1936 Unknown [id number] 2.16.84 0.1.491764.3.579.2.1258 1936 Unknown [id number] 2.16.84 0.1.640587.3.579.2.1258 1936 Unknown [id number] 2.16.84 0.1.756347.3.579.2.1258 1936 Unknown [id number] 2.16.84 0.1.310204.3.579.2.1258 1936 Unknown [id number] 2.16.84 0.1.386464.3.579.2.1259 Clinical Note 10-15-2021 Note Date & Type Note Facility 10-15-2021 Note PROCEDURE: Multiplan ar, multisequence imaging including T1, T2 without contrast. FINDINGS: Comparison made with prior lumbar plain film June 28, 2016. No acute vertebral body fracture. Chronic moderate to severe anterior compression fracture L1, interval mild to moderate central end plate compressions of L3 subsequent to the 2017 examination with no acute or subacute bone [...] signed by Kota Vargas on 10/18/2021 0738 [facility] Electronic Heat Seal Operator Medication management note 06-23-2021 Note Date & Type Note Facility 06-23-2021 Note [id number]-23-2021 Note Date & Type Note Facility 06-23-2021 Note [id number][facility] 06-22-2021 Note Date [...] or concerns, please call the office at [phone] -Follow up as scheduled [facility] Clinical Note 06-22-2021 Note Date & Type Note Facility 06-22-2021 Note [facility] 2SOUT Clinical Discharge Summary PERSON INFORMATION Name ENRIQUE MIKE Age 85 Years 1935 Sex MALE Language Icelandic PCP JERMAIN MENCHACA MD Marital Status Med Service Observation Acct# Arrival 06/21/2021 05:54:00 Visit Reason SURGERY - LEFT REVERSE TOTAL SHOULDER - ARTHREX Acuity LOS 000 29:26 Address: [address] [place] [address] Comment: PROVIDER INFORMATION VITALS INFORMATION Vital Sign [...] EDUCATION INFORMATION Instructions: Sangeeta- Post Op Shoulder (MHUDMELISSA) Follow up: With: Address: When: Enrique Rutherford [address] [place] [address], [address] [place] [address] Business (1) 06/29/2021 10:45 AM DIAGNOSIS Osteoarthritis of left shoulder; Other specific arthropathies, not elsewhere classified, left shoulder; Rotator cuff tear arthropathy of left shoulder Comment: PHYS DOC NOTES [facility] History and physical note 06-21-2021 Note Date & Type Note Facility 06-21-2021 Note [id number] [facility] Summary Purpose Family History No Family [...] section and content) DATE CREATED AUTHOR 10/13/2021 [facility] DATE CREATED AUTHOR AUTHOR'S ORGANIZ ATION 10/18/2021 [facility] dical Specialist DATE CREATED AUTHOR AUTHOR'S ORGANIZ ATION 12/20/2021 [facility] DATE CREATED AUTHOR AUTHOR'S ORGANIZ ATION 06/03/2023 [facility] DATE CREATED AUTHOR AUTHOR'S ORGANIZ ATION 08/16/2023 [facility] DATE CREATED AUTHOR AUTHOR'S ORGANIZ ATION 08/22/2023 [facility] dical Specialists EPIC FOR RECORDS PERTAINING TO [...] BE BASED ON THE PRIMARY CLINICAL RECORDS. [facility] [employer] [facility]. provides no warranty or guarantee of the accuracy or completeness of information in this document.
[2023-08-28 07:29] VITALS: BP 143/70; PULSE 72; TEMP 36.2; O2SAT 100
[2023-08-28 08:17] VITALS: BP 136/64; PULSE 97; O2SAT 69
[2023-08-28] MEDS: TRIAMCINOLONE ACETONIDE 40 MG/ML VIAL INJ (08:18)
[2023-08-28] MEDS: BUPIVACAINE HCL 0.25% PF 25 MG/10 ML VIAL 5 ML INJ (08:18)
[2023-08-28] MEDS: IOHEXOL 240 MG/ML - 10 ML VIAL INJ (08:19)
[2023-08-28] MEDS: LIDOCAINE HCL 2% 400 MG/20 ML MDV 15 ML INJ (08:19)
--- NOTE | 2023-08-28 08:19 | W.PM.PROCNOT ---
Date of procedure: 08/28/23 Pre-op diagnosis: Sacroiliitis, right Post-op diagnosis: same as pre-op Procedure: Procedure: Right sacroiliac joint injection Medications: Bupivacaine 0.25% 1cc, kenalog 40mg After informed consent was obtained, the patient was brought to the medical procedure unit and placed in the prone position, when a timeout was completed verifying correct patient, procedure, site, positioning, implant, and/or special equipment.? The skin overlying the area was prepped and draped in standard sterile fashion using alcohol.? A 25-gauge needle was inserted towards the right sacroiliac joint under direct fluoroscopic imaging.? Needle tip was advanced until the joint was encountered.? We instilled a total of 2 mL of solution.? Postoperatively needles were removed.? The patient tolerated the procedure well without complication.? The patient reported reduction in pain symptoms postoperatively. Anesthesia: Local Surgeon: Alberto Pacheco Pathology: none sent Condition: stable Disposition: no change
[2023-08-28 08:20] VITALS: BP 148/73; PULSE 98; O2SAT 69
== END 2023-08-28 08:23 | disposition home or self-care (01) ==
LOC: SURGOUT 07:12
PROVIDERS: PCP Family Medicine; Visit Provider Anesthesiology
DX: M46.1 Sacroiliitis, not elsewhere classified (principal)
CPT/HCPCS: 27096; J0665; J3301; Q9966

== ENCOUNTER 2023-09-06 15:10 | Outpatient (OUT) | payer MEDICARE, SELFPAY ==
--- NOTE | 2023-09-06 15:22 | PM.CN ---
Consult Note: HPI Data of Consult Patient: new to practice Consult date: 08/07/23 Requesting Physician: Gracie Mcqueen NP Primary Care Provider: JERMAIN MENCHACA Consult Narrative Reason for consult: low back, right hip and leg pain Narrative: 87yom who presents for evaluation. longstanding low back and right hip and leg pain. lumbar mri shows severe multilevel foraminal narrowing, as well as severe facet arthropathy. continues in series of provider directed home exercises >6 weeks, without benefit. uses otc pain meds. denies adverse med side effects. recently underwent right l4-5 l5-s1 TFESI and right SIJ injection with >80% improvement ongoing. cc:: CC: Gracie Mcqueen NP Review of Systems ROS Status of ROS 10 or more systems reviewed and unremarkable except as noted in history and below [facility] Medical History (Updated 08/09/23 @ 07:44 by Jordyn Kinsey) Rotator cuff tear, left ?M75.102 - Unspecified rotator cuff tear or rupture of left shoulder, not specified as traumatic (ICD-10) Macular degeneration ?H35.30 - Unspecified macular degeneration (ICD-10) Carpal tunnel syndrome ?G56.00 - Carpal tunnel syndrome, unspecified upper limb (ICD-10) Hearing deficit ?H91.90 - Unspecified hearing loss, unspecified ear (ICD-10) Stroke ?I63.9 - Cerebral infarction, unspecified (ICD-10) High blood pressure ?I10 - Essential (primary) hypertension (ICD-10) Surgical History Hx of decompressive lumbar laminectomy ?Z98.890 - Other specified postprocedural states (ICD-10) 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 - Presence of left artificial shoulder joint (ICD-10) 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) Meds Home Medications and Allergies Home Medications ?Medication ?Instructions ?Recorded ?Confirmed ?Type CITRUS BIOFLAVONOID COMPLEX DAILY 08/07/23 History aspirin 81 mg capsule 81 mg PO BID 08/07/23 08/28/23 History finasteride 5 mg tablet 5 mg PO DAILY 08/07/23 08/28/23 History levothyroxine 100 mcg tablet 100 mcg PO DAILY 08/07/23 08/28/23 History lovastatin 20 mg tablet 20 mg PO DAILY 08/07/23 08/28/23 History meloxicam 15 mg tablet 15 mg PO DAILY 08/07/23 08/28/23 History tamsulosin 0.4 mg capsule 0.4 mg PO Q24H 08/07/23 08/28/23 History vit A 7,160 unit-C 113 mg-E 100 tab PO 08/07/23 History weog-wyef-whsnlk tablet,delayed rel. lisinopril 10 mg tablet 10 mg PO DAILY 08/28/23 08/28/23 History Allergies Allergy/AdvReac Type Severity Reaction Status Date / Time No Known Drug Allergies Allergy Verified 08/28/23 07:34 Exam Constitutional Documenting provider has reviewed patient's vital signs: yes Common normals: no apparent distress, oriented x3, healthy appearing, alert and well nourished General appearance: cooperative HENPA Common normals: normocephalic, hearing grossly normal bilaterally and moist oral mucous membranes Head and scalp: normocephalic Eye Common normals: PERRL Pupil: PERRL Neck & C-Spine Common normals: full ROM General: normal visual inspection Chest Common normals: inspection of chest normal Respiratory Common normals: normal respiratory effort, no retractions and no use of accessory muscles Back & Pelvis Lumbar spine/lower back: normal to inspection, lumbar ROM normal and straight leg raise negative bilaterally Sacroiliac joints: SI joints normal Extremity Other: no pain with internal/external log roll of right leg Neuro Common normals: oriented x3, CN's II-XII intact bilaterally, moves all extremities, no focal motor deficits, no sensory deficits noted and deep tendon reflexes 2+ bilaterally Sensorium/orientation: alert Motor exam: strength 5/5 throughout and no movement abnormalities noted Psych Common normals: mental status grossly normal, thought process normal, cooperative, affect normal, speech normal and activity/motor behavior normal Speech: normal speech Thought process: normal thought process Assessment and Plan Assessment and Plan (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
== END 2023-09-06 15:11 | disposition home or self-care (01) ==
LOC: PM 15:11
PROVIDERS: PCP Family Medicine; Visit Provider Nurse Practitioner
DX: M48.062 Spinal stenosis, lumbar region with neurogenic claudication (principal); M53.3 Sacrococcygeal disorders, not elsewhere classified; M47.816 Spondylosis without myelopathy or radiculopathy, lumbar region
CPT/HCPCS: G0463

== ENCOUNTER 2023-12-25 12:15 | Outpatient (OUT) | payer MEDICARE, SELFPAY ==
--- NOTE | 2023-12-25 12:44 | P.CN_ITS ---
Consult Note: HPI Data of Consult Patient: known to practice within the last 3 years Consult date: 12/25/23 Requesting Physician: Alberto Pacheco MD Primary Care Provider: JERMAIN MENCHACA Consult Narrative Reason for consult: low back, left hip and leg pain Narrative: 88yom who presents for assessment. had fall at home 2 months ago, has had increasing pain down left leg. imaging reviewed, significant for severe stenosis at multiple levels in lumbar spine. has engaged in a series of provider directed home exercises >6 weeks, without benefit. uses tylenol and advil, with limited benefit cc:: CC: Alberto Pacheco MD Review of Systems ROS Status of ROS 10 or more systems reviewed and unremark able except as noted in history and below [facility] Medical History (Updated 08/09/23 @ 07:44 by Jordyn Kinsey) Rotator cuff tear, left ?M75.102 - Unspecified rotator cuff tear or rupture of left shoulder, not specified as traumatic (ICD-10) Macular degeneration ?H35.30 - Unspecified macular degeneration (ICD-10) Carpal tunnel syndrome ?G56.00 - Carpal tunnel syndrome, unspecified upper limb (ICD-10) Hearing deficit ?H91.90 - Unspecified hearing loss, unspecified ear (ICD-10) Stroke ?I63.9 - Cerebral infarction, unspecified (ICD-10) High blood pressure ?I10 - Essential (primary) hypertension (ICD-10) Surgical History Hx of decompressive lumbar laminectomy ?Z98.890 - Other specified postprocedural states (ICD-10) 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 - Presence of left artificial shoulder joint (ICD-10) 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) Meds Home Medications and Allergies Home Medications ?Medication ?Instructions ?Recorded ?Confirmed ?Type CITRUS BIOFLAVONOID COMPLEX DAILY 08/07/23 History aspirin 81 mg capsule 81 mg PO BID 08/07/23 08/28/23 History finasteride 5 mg tablet 5 mg PO DAILY 08/07/23 08/28/23 History levothyroxine 100 mcg tablet 100 mcg PO DAILY 08/07/23 08/28/23 History lovastatin 20 mg tablet 20 mg PO DAILY 08/07/23 08/28/23 History meloxicam 15 mg tablet 15 mg PO DAILY 08/07/23 08/28/23 History tamsulosin 0.4 mg capsule 0.4 mg PO Q24H 08/07/23 08/28/23 History vit A 7,160 unit-C 113 mg-E 100 tab PO 08/07/23 History wgwr-gzlf-ymumlg tablet,delayed rel. lisinopril 10 mg tablet 10 mg PO DAILY 08/28/23 08/28/23 History Allergies Allergy/AdvReac Type Severity Reaction Status Date / Time No Known Drug Allergies Allergy Verified 08/28/23 07:34 Exam Narrative Exam Narrative: Psych-alert and oriented x 3. Attentive and appropriate, constitutionally normal, displays normal mood and affect per situation. There are no obvious deficits in memory, reasoning, or intellect.? Skin-no obvious rashes, bruising, erythema noted to the patient's area of pain.? Extremities- extremities are warm with minimal edema and palpable pulses. Lumbar-tenderness to palpation noted in the lumbar spine and paraspinal musculature. Pain is elicited with flexion, extension, and lateral rotation of the lumbar spine. Range of motion is diminished with these motions. Facet loading maneuvers are positive.? Strength-noted to be unremarkable with the exception of decreased strength rated at 4 out of 5 in left quadriceps femoris, anterior tibialis. Sensory-no notable sensory deficits in the bilateral lower extremities to touch or pinprick in all dermatomal distributions with the exception to decreased sensation to the left L3, 4, 5 dermatomal distribution Sacroiliac - tender to palpation over left PSIS. Positive Eduardo's on the left. Positive thigh thrust on the left. Coordination remains intact.? Gait remains non-antalgic. Assessment and Plan Assessment and Plan (1) Lumbar stenosis with neurogenic claudication: (2) Sacroiliac joint disease: Plan 88yom who presents for assessment. failed conservative measures, as noted. imaging reviewed, as noted. given symptoms and imaging, prudent to attempt left l4-5, l5-s1 tfesi under fluoroscopic guidance. may also benefit from left sacroiliac joint injection. he is in agreement. meds reviewed. uds obtained. will trial tramadol 50mg tid prn. follow up after procedure.
== END 2023-12-25 12:16 | disposition home or self-care (01) ==
LOC: PM 12:15
PROVIDERS: PCP Family Medicine; Visit Provider Anesthesiology
DX: M48.062 Spinal stenosis, lumbar region with neurogenic claudication (principal); M53.3 Sacrococcygeal disorders, not elsewhere classified
CPT/HCPCS: G0463

== ENCOUNTER 2024-01-01 09:33 | Day surgery (SDC) | payer MEDICARE, SELFPAY ==
[2024-01-01 10:23] VITALS: BP 158/92; PULSE 45; TEMP 36.3; O2SAT 91
[2024-01-01 11:18] VITALS: BP 157/70; PULSE 103; O2SAT 95
[2024-01-01 11:19] VITALS: BP 186/77; PULSE 102; O2SAT 96
--- NOTE | 2024-01-01 11:21 | P.ON_ITS ---
Date of procedure: 01/01/24 Pre-op diagnosis: Pain due to lumbar stenosis with neurogenic claudication Post-op diagnosis: same as pre-op Procedure: Procedure: Left L4-5, L5-S1 transforaminal epidural steroid injection Medications: Bupivacaine 0.25% 2cc, lidocaine 2% 1cc, kenalog 80mg The patient was seen and examined in the preoperative holding area.? Informed consent was obtained and placed on the chart.? Patient was brought to the medical procedure unit and placed in the prone position where a timeout was completed verifying the correct patient, procedure site, position, and planned special equipment using sterile aseptic technique.? Under direct fluoroscopic visualization a 25-gauge Quincke tipped spinal needle was advanced to the designated neural foramen where contrast dye was injected to show adequate spread.? The needle was inserted at level left L4-5. There was no evidence of vascular or adverse uptake.? Epidural spread was appreciated.? The above- mentioned injectate was then placed in a 1.5 mL aliquot preceded by negative aspiration.? The needle was removed. The needle was inserted and the procedure repeated at level left L5-S1.? The surgery site was covered.? Patient was taken to the postprocedural recovery area and monitored for an appropriate length of time before found suitable for discharge in the accompaniment of a responsible adult. Anesthesia: Local Surgeon: Alberto Pacheco Pathology: none sent Condition: stable Disposition: no change
[2024-01-01] MEDS: 0.9 % SODIUM CHLORIDE 10 ML SYRINGE - SALINE FLUSH INJ (11:22)
[2024-01-01] MEDS: LIDOCAINE HCL 2% 400 MG/20 ML MDV 3 ML INJ (11:23)
[2024-01-01] MEDS: BUPIVACAINE HCL 0.25% PF 25 MG/10 ML VIAL INJ (11:23)
[2024-01-01] MEDS: TRIAMCINOLONE ACETONIDE 40 MG/ML VIAL 80 MG INJ (11:23)
[2024-01-01] MEDS: IOHEXOL 240 MG/ML - 10 ML VIAL 24 MG INJ (11:23)
== END 2024-01-01 11:28 | disposition home or self-care (01) ==
PROVIDERS: PCP Family Medicine; Visit Provider Anesthesiology
DX: M48.062 Spinal stenosis, lumbar region with neurogenic claudication (principal)
CPT/HCPCS: 64483; 64484; J0665; J3301; Q9966

== ENCOUNTER 2024-01-17 13:16 | Outpatient (OUT) | payer MEDICARE, SELFPAY ==
--- OUTSIDE RECORDS SUMMARY | 2024-01-17 13:33 | XMS_ITS | CCD ---
Author Organization [facility] Care Team Providers Care Relay Assembler Name Role Phone NIKOLAI, DR ALY Attending Unavailable NIKOLAI, DR ALY Primary Care Unavailable NIKOLAI, DR ALY Admitting Unavailable JERMAIN MENCHACA Primary Care Unavailable KATHE MEZA Attending Unavailable ALEXUS CLINTON Admitting Unavailable AGUSTIN GARCIA Attending Unavailable AGUSTIN GARCIA Referring Unavailable JERMAIN MENCHACA Primary Care Unavailable JERMAIN MENCHACA Primary Care Unavailable MAIA CHAPA Attending Unavailable MAIA CHAPA Attending Unavailable MAIA CHAPA Referring Unavailable JERMAIN MENCHACA Primary Care Unavailable MAIA CHAPA Attending Unavailable MAIA CHAPA Referring Unavailable NIKOLAIJERMAIN Primary Care Unavailable Jermain Menchaca MD Primary Care Provider [phone] Jermain Menchaca MD Unavailable Junior LEDEZMA, Alberto Ansari Attending Unavailable Junior LEDEZMA, Alberto Ansari Attending Unavailable Junior LEDEZMA, Alberto Ansari Attending Unavailable Junior LEDEZMA, Alberto Ansari Attending Unavailable Junior LEDEZMA, Alberto Ansari Attending Unavailable NIKOLAIJERMAIN Attending Unavailable ABEL SOLIS Attending Unavailable NIKOLAIJERMAIN M Referring Unavailable ABEL SOLIS Attending Unavailable ENRIQUE RUTHERFORD Attending Unavailable JERMAIN MENCHACA Attending Unavailable ENRIQUE RUTHERFORD Attending Unavailable ENRIQUE RUTHERFORD Referring Unavailable ENRIQUE RUTHERFORD Referring Unavailable ENRIQUE RUTHERFORD Attending Unavailable CHATA JARVIS Attending Unavailable JERMAIN MENCHACA Attending Unavailable LITA SILVESTRE Attending Unavailable LITA SILVESTRE Attending Unavailable LITA SILVESTRE Referring Unavailable LITA SILVESTRE Attending Unavailable LITA SILVESTRE Referring Unavailable CHATA JARVIS Attending Unavailable HEMMER, CHATA M Attending Unavailable Medications Current Medications Medication Drug Class(es) Dates Sig (Normalized) Sig (Original) acetaminophen 325 mg oral tablet (14 sources) take 1 tablet by mouth every six hours as needed for pain acetaminophen (Tylenol) 325 MG tablet Take 325 mg by mouth every 6 (six) hours if needed for mild pain. Active acetaminophen 325 mg / HYDROcodone bitartrate 5 mg oral tablet (14 sources) Opioid Agonist Start: 4 take 1 tablet by mouth every six hours as needed HYDROcodone-acetamino phen ([place]) 5-325 MG tablet Take 1 tablet by mouth every 6 (six) hours if needed 11/06/2023 Active baclofen 10 mg oral tablet (14 sources) gamma-Aminobutyric Acid-ergic Agonist Start: 3 take 1 tablet by mouth twice daily as needed for muscle spasms baclofen (Lioresal) 10 MG tablet Indications: Cervicalgia Take 1 tablet (10 mg) by mouth 2 (two) times a day as needed for muscle spasms. 60 tablet 2 10/06/2022 Active finasteride 5 mg oral tablet (14 sources) 5-alpha Reductase Inhibitor Start: 3 take 1 tablet by mouth in the morning finasteride (Proscar) 5 MG tablet Take 5 mg by mouth in the morning. 07/15/2022 Active levothyroxine sodium 0.1 mg oral tablet (14 sources) l-Thyroxine Start: 4 take 1 tablet by mouth once daily levothyroxine (Synthroid, Levoxyl) 100 MCG tablet Indications: Hypothyroidism, unspecified (CMS/HCC) TAKE 1 TABLET BY MOUTH DAILY; hold on sundays 90 tablet 3 07/03/2023 Active lisinopril 10 mg oral tablet (14 sources) Angiotensin Converting Enzyme Inhibitor Start: 4 take 1 tablet by mouth once daily lisinopril 10 MG tablet Indications: Benign essential hypertension (CMS/HCC) Take 1 tablet (10 mg) by mouth Daily 100 tablet 3 11/14/2023 Active lovastatin 20 mg oral tablet (14 sources) HMG-CoA Reductase Inhibitor Start: 4 take 1 tablet by mouth at dinner lovastatin (Mevacor) 20 MG tablet Indications: Pure hypercholesterolemia, unspecified (CMS/HCC) TAKE 1 TABLET BY MOUTH with evening meal 100 tablet 3 04/12/2023 Active meloxicam 15 mg oral tablet (14 sources) Nonsteroidal Anti-inflammatory Drug Start: 4 take 1 tablet by mouth at mealtime meloxicam (Mobic) 15 MG tablet Indications: Primary osteoarthritis, right hand TAKE 1 TABLET BY MOUTH IN THE MORNING WITH FOOD 100 tablet 3 07/03/2023 Active methylPREDNISolone (5 sources) Corticosteroid Start: 4 End: 4 methylPREDNISolone (Medrol Dospak) 4 MG tablets Indications: Left-sided low back pain with left-sided sciatica, unspecified chronicity Follow schedule on package instructions 21 tablet 12/19/2023 12/26/2023 Discontinued (Therapy completed) Start: 12-19-2023 methylPREDNISo lone (Medrol Dospak) 4 MG tablets Indications: Left-sided low back pain with left-sided sciatica, unspecified chronicity Follow schedule on package instructions 21 tablet 12/19/2023 Active Nutritional Supplements (PROSTA JENISE PO) (14 sources) Nutritional Supplements (PROSTA JENISE PO) Take by mouth 2 (two) times a day. Active tamsulosin hydrochloride 0.4 mg oral capsule (14 sources) alpha-Adrenergic Andria Start: 4 take 1 capsule by mouth every twenty-four hours in the morning tamsulosin (Flomax) 0.4 MG 24 hr capsule Indications: Retention of urine, unspecified TAKE 1 CAPSULE BY MOUTH IN THE MORNING 100 capsule 3 01/01/2024 Active Start: 10-30-2023 take 1 capsule by [facility] once daily tamsulosin (Flomax) 0.4 MG 24 hr capsule Indications: Retention of urine, unspecified Take 1 capsule (0.4 mg) by mouth Daily 100 capsule 3 10/30/2023 Active traMADol hydrochloride 50 mg oral tablet (6 sources) Opioid Agonist take 1 tablet by mouth every six hours as needed for pain traMADol (Ultram) 50 MG tablet Take 50 mg by mouth every 6 (six) hours if needed for severe pain Active ubidecarenone 30 mg oral capsule (14 sources) co-enzyme Q-10 3 0 MG capsule Take 100 mg by mouth in the morning. Active Wound Dressings (Medihoney wound/burn) gel (6 sources) Start: 12-26-2023 Wound Dressings (Medihoney wound/burn) gel Indications: Pressure ulcer of coccygeal region, stage 2 (CMS/HCC) APPLY TO THE AFFECTED AREA(S) TOPICALLY DAILY FOR 14 DAYS 45 mL 2 12/26/2023 Active Start: 12-26-2023 End: 01-09-2024 Wound Dressings (Medihoney w ound/burn) gel Indications: Pressure ulcer of coccygeal region, stage 2 (CMS/HCC) Apply 1 application topically Daily for 14 doses 44 mL 12/26/2023 01/09/2024 Active Problems Active Problems Problem Classification Problem Date Documented Da te Episodic/Chronic Acute cerebrovascular disease (1 source) Cerebral infarction, unspecified; Translations: [Cerebral infarction, unspecified] Onset: 06-01-2023 Chronic Acute cerebrovascular disease (2 sources) Acute cerebrovascular disease Onset: 06-01-2023 Blindness and vision defects (14 sources) Blind right eye, normal vision left eye; Translations: [Blindness, one eye, unspecified eye] Onset: 06-13-2023 06-13-2023 Chronic Chronic kidney disease (14 sources) Chronic kidney disease stage 3B ; Translations: [Stage 3b chronic kidney disease (HCC)] Onset: 10-04-2022 10-04-2022 Chronic Chronic ulcer of skin (4 sources) Pressure ulcer of sacral region, stage 2; Translations: [Pressure ulcer, lower back] 12-26-2023 Chronic Disorders of lipid metabolism (14 sources) Pure hypercholesterolemia; Translations: [Pure hypercholesterolemia, unspecified] Onset: 10-04-2022 10-04-2022 Chronic Essential hypertension (14 sources) Benign essential hypertension; Translations: [Essential (primary) hypertension] Onset: 12-09-2021 10-11-2022 Chronic Genitourinary symptoms and ill-defined conditions (4 sources) Retention of urine, unspecified; Translations: [RETENTION OF URINE UNSPECIFIED] Onset: 12-17-2021 Episodic Immunizations and screening for infectious disease (2 sources) Vaccination needed; Translations: [Encounter for immunization] 12-26-2023 Episodic Osteoarthritis (20 sources) Osteoarthritis of joint of left shoulder region; Translations: [Primary osteoarthritis, left shoulder] Onset: 06-23-2022 06-23-2022 Chronic Other connective tissue disease (14 sources) History of left shoulder arthroplasty; Translations: [Presence of left artificial shoulder joint] Onset: 06-23-2022 06-23-2022 Chronic Other connective tissue disease (14 sources) History of reverse prosthetic total arthroplasty of left shoulder; Translations: [Presence of left artificial shoulder joint] Onset: 10-04-2022 10-04-2022 Chronic Other fractures (1 source) Other specified fracture of right pubis, initial encounter for closed fracture; Translations: [Other specified fracture of right pubis, initial encounter for closed fracture] Onset: 11-06-2023 Episodic Other fractures (1 source) Unspecified fracture of left acetabulum, initial encounter for closed fracture; Translations: [Unspecified fracture of left acetabulum, initial encounter for closed fracture] Onset: 11-06-2023 Episodic Other fractures (1 source) Other fracture of second lumbar vertebra, initial encounter for closed fracture; Translations: [Other fracture of second lumbar vertebra, initial encounter for closed fracture] Onset: 11-06-2023 Episodic Other fractures (1 source) Fracture of one rib, left side, initial encounter for closed fracture; Translations: [Fracture of one rib, left side, initial encounter for closed fracture] Onset: 11-06-2023 Episodic Other fractures (4 sources) Fracture of multiple pubic rami; Translations: [Other specified fracture of right pubis, subsequent encounter for fracture with routine healing] 11-23-2023 Episodic Other fractures (4 sources) Closed fracture of medial wall of acetabulum; Translations: [Nondisplaced fracture of medial wall of left acetabulum, subsequent encounter for fracture with routine healing] 11-23-2023 Episodic Other nervous system disorders (14 sources) Carpal tunnel syndrome of right wrist; Translations: [Carpal tunnel syndrome, right upper limb] Onset: 10-04-2022 10-04-2022 Chronic Phlebitis; thrombophlebitis and thromboembolism (3 sources) History of thromboembolism of vein; Translations: [Personal history of other venous thrombosis and embolism] Onset: 01-09-2024 01-09-2024 Episodic Retinal detachments; defects; vascular occlusion; and retinopathy (1 source) Unspecified retinal vascular occlusion; Translations: [Unspecified retinal vascular occlusion] Onset: 06-01-2023 Chronic Spondylosis; intervertebral disc disorders; other back problems (14 sources) Degeneration of lumbar intervertebral disc; Translations: [Degenerative disc disease, lumbar] Onset: 10-04-2022 10-04-2022 Chronic Thyroid disorders (14 sources) Hypothyroidism; Translations: [Hypothyroidism, unspecified] Onset: 12-09-2021 10-04-2022 Chronic Transient cerebral ischemia (15 sources) Transient cerebral ischemic attack, unspecified; Translations: [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] Onset: 06-01-2023 08-21-2023 Chronic Past or Other Problems Problem Classification Problem Date Documented Da te Episodic/Chronic Aortic and peripheral arterial embolism or thrombosis (15 sources) Embolism and thrombosis of unspecified artery; Translations: [Arterial embolus and thrombosis] Onset: 06-02-2023 Resolved: 01-09-2024 10-30-2023 Chronic Fluid and electrolyte disorders (1 source) Hypo-osmolality and hyponatremia; Translations: [Hypo-osmolality and hyponatremia] Onset: 12-09-2021 Episodic Heart valve disorders (1 source) Unspecified abnormalities of heart beat; Translations: [Unspecified abnormalities of heart beat] Onset: 06-01-2023 Episodic Other connective tissue disease (14 sources) Tear of left rotator cuff; Translations: [Unspecified rotator cuff tear or rupture of left shoulder, not specified as traumatic] Onset: 10-04-2022 10-04-2022 Episodic Other connective tissue disease (14 sources) Pain in hallux; Translations: [Pain in left toe(s)] Onset: 04-10-2023 04-10-2023 Episodic Other gastrointestinal disorders (14 sources) Constipation; Translations: [Constipation, unspecified] Onset: 12-09-2021 04-10-2023 Episodic Other non-epithelial cancer of skin (14 sources) Basal cell carcinoma of face; Translations: [Basal cell carcinoma of skin of unspecified parts of face] Onset: 10-04-2022 10-04-2022 Episodic Other nutritional; endocrine; and metabolic disorders (14 sources) H/O: thyroid disorder; Translations: [Personal history of other endocrine, nutritional and metabolic disease] Onset: 10-04-2022 10-04-2022 Episodic Residual codes; unclassified (14 sources) Family history of ischemic heart disease; Translations: [Family history of ischemic heart disease and other diseases of the circulatory system] Onset: 10-04-2022 10-04-2022 Episodic Screening and history of mental health and substance abuse codes (14 sources) Ex-smoker; Translations: [Personal history of nicotine dependence] Onset: 10-04-2022 10-04-2022 Episodic Skin and subcutaneous tissue infections (14 sources) Paronychia of toe of left foot; Translations: [Cellulitis of left toe] Onset: 04-10-2023 04-10-2023 Episodic Spondylosis; intervertebral disc disorders; other back problems (20 sources) Backache; Translations: [Spinal stenosis of lumbar region] Onset: 12-01-2021 10-04-2022 Episodic Results Test Name Value Interpretation Reference Range Facility XR Pelvis 1 or 2 [facility] Result: 12/19/2023 AP pelvis demonstrate healing right pubic rami fracture and healing left acetabulum fracture in acceptable alignment with increased callus formation. No definitive union of right pubic rami fracture. No signs of displacement. Impression: Healing right pubic rami and left acetabulum fracture. [facility]vis 1 or 2 [facility] By: Enrique Rutherford on 12-21-2023 [facility] Work Phone: XR Pelvis 1 or 2 [facility] Study observation (narrative) [facility] XR Pelvis 1 or 2 [facility] Result: 11/23/2023 AP pelvis demonstrated stable right pubic rami fracture and healing left acetabulum fracture in acceptable alignment. No signs of displacement Impression: Stable right pubic rami and left acetabulum fracture. [facility] XR Pelvis 1 or 2 [facility] d By: Enrique Rutherford on 11-24-2023 [facility] Work Phone: XR Pelvis 1 or 2 [facility] Study observation (narrative) [facility] BASIC METABOLIC PANLon 11-05 Anion gap [Moles/Vol] 11 mmol/L Normal 5-15 [facility] Comment on above: Performed By: #### C BCA, BMP ####[facility] ([id number])[address] [place] [address] Calcium [Mass/Vol] 8.6 mg/dL Normal 8.5-10.5 [facility] Comment on above: Performed By: #### C ANH, BMP ####[facility] ([id number])[address] [place] [address] 99195 Chloride [Moles/Vol] 94 mmol/L Low 98-109 [facility] Comment on above: Performed By: #### C ANH, BMP ####[facility] ([id number])[address] [place] [address] 73004 CO2 [Moles/Vol] 24 mmol/L Normal 22-32 [facility] Comment on above: Performed By: #### C ANH, BMP ####[facility] ([id number])[address] [place] [address] 21005 Creatinine [Mass/Vol] 1.18 mg/dL Normal 0.70-1.20 [facility] Comment on above: Result Comment: METH OD TRACEABLE TO IDMS STANDARD Performed By: #### C ANH, BMP ####[facility] ([id number])[address] [place] [address] 43769 GFR/1.73 sq M.predicted among non-blacks MDRD (S/P/Bld) [Vol rate/Area] 60 mL/min/{1.73_m2} Normal >59 [facility] Comment on above: Result Comment: Reported eGFR is based on the CKD-EPI 2020 equation that does not use a race coefficient. Performed By: #### C ANH, BMP ####[facility] ([id number])[address] [place] [address] 79304 Glucose [Mass/Vol] 138 mg/dL High 65-99 [facility] Comment on above: Performed By: #### C BCA, BMP ####[facility] ([id number])[address] [place] [address] 28380 Potassium [Moles/Vol] 4.3 mmol/L Normal 3.5-5.0 [facility] Comment on above: Performed By: #### C ANH, BMP ####[facility] ([id number])[address] [place] [address] 61251 Sodium [Moles/Vol] 129 mmol/L Low 134-146 [facility] Comment on above: Performed By: #### C ANH, BMP ####[facility] ([id number])[address] [place] [address] 14167 Urea nitrogen [Mass/Vol] 27 mg/dL Normal 5-27 [facility] Comment on above: Performed By: #### C ANH, BMP ####[facility] ([id number])[address] [place] [address] 99675 CBC AND AUTO DIFFon 11-06-19 24 ABSOLUTE BASOPHIL 0.0 X10E9/L Normal 0.0-0.2 [facility] Comment on above: Performed By: #### C ANH, BMP ####[facility] ([id number])[address] [place] [address]58 ABSOLUTE NEUTROPHIL 6.4 X10E9/L Normal 1.5-6.6 [facility] Comment on above: Performed By: #### C ANH, BMP ####[facility] ([id number])[address] [place] [address] 06041 Basophils/100 WBC (Bld) 0.2 % Normal [facility] Comment on above: Performed By: #### C ANH, BMP ####[facility] ([id number])[address] [place] [address] 42381 Eosinophils (Bld) [#/Vol] 0.1 10*3/uL Normal 0.0-0.4 [facility] Comment on above: Performed By: #### C ANH, BMP ####[facility] ([id number])[address] [place] [address] 16421 Eosinophils/100 WBC (Bld) 0.7 % Normal [facility] Comment on above: Performed By: #### C ANH, BMP ####[facility] ([id number])[address] [place] [address] 83205 Erythrocyte distribution width (RBC) [Ratio] 13.4 % Normal 11.5-15.0 [facility] Comment on above: Performed By: #### C ANH, BMP ####[facility] ([id number])[address] [place] [address] 37988 Hematocrit (Bld) [Volume fraction] 35.2 % Low 39-49 [facility] Comment on above: Performed By: #### C ANH, BMP ####[facility] ([id number])[address] [place] [address] 48415 Hemoglobin (Bld) [Mass/Vol] 11.9 g/dL Low 13.0-17.0 [facility] Comment on above: Performed By: #### C ANH, BMP ####[facility] ([id number])[address] [place] [address] 79668 Lymphocytes (Bld) [#/Vol] 0.8 10*3/uL Low 1.0-3.5 [facility] Comment on above: Performed By: #### C ANH, BMP ####[facility] ([id number])[address] [place] [address] 86283 Lymphocytes/100 WBC (Bld) 10.2 % Normal [facility] Comment on above: Performed By: #### C ANH, BMP ####[facility] ([id number])[address] [place] [address] 31498 MCH (RBC) [Entitic mass] 32.4 pg Normal 27-34 [facility] Comment on above: Performed By: #### C ANH, BMP ####[facility] ([id number])[address] [place] [address] 32371 MCHC (RBC) [Mass/Vol] 33.9 g/dL Normal 32-36 [facility] Comment on above: Performed By: #### C ANH, BMP ####[facility] ([id number])[address] [place] [address] 92648 MCV (RBC) [Entitic vol] 96 fL Normal 80-100 [facility] Comment on above: Performed By: #### C ANH, BMP ####[facility] ([id number])[address] [place] [address] 05484 Monocytes (Bld) [#/Vol] 0.8 10*3/uL Normal 0-0.9 [facility] Comment on above: Performed By: #### Arsenio KAMARA, BMP ####[facility] ([id number])[address] [place] [address] 12023 Monocytes/100 WBC (Bld) 9.5 % Normal [facility] Comment on above: Performed By: #### C ANH, BMP ####[facility] ([id number])[address] [place] [address] 31998 Neutrophils/100 WBC (Bld) 79.4 % Normal [facility] Comment on above: Performed By: #### C ANH, BMP ####[facility] ([id number])[address] [place] [address] 45087 Platelet mean volume (Bld) [Entitic vol] 6.0 fL Low 7-12 [facility] Comment on above: Performed By: #### C ANH, BMP ####[facility] ([id number])[address] [place] [address] 78541 Platelets (Bld) [#/Vol] 225 10*3/uL Normal 150-450 [facility] Comment on above: Performed By: #### C ANH, BMP ####[facility] ([id number])[address] [place] [address] RBC COUNT 3.68 X10E12/L Low 4.10-5.70 [facility] Comment on above: Performed By: #### C BCA, BMP ####[facility] ([id number])[address] [place] [address] WBC (Bld) [#/Vol] 8.0 10*3/uL Normal 4.0-11.0 [facility] Comment on above: Performed By: #### C BCA, BMP ####[facility] ([id number])[address] [place] [address] CT ABDOMEN AND PELVIS W CONT on 11-06-2023 CT ABDOMEN AND PELVIS W CONT CT ABDOMEN AND PELVIS W CONT STUDY: ABDOMEN AND PELVIS CT WITH CONTRAST CLINICAL HISTORY: Fall, lower abdominal pain COMPARISON: 12/08/2021 TECHNIQUE: Routine CT abdomen and pelvis was performed according to standard protocol. FINDINGS: Dependent atelectasis in the lower lobes. Multiple hepatic cysts. The gallbladder is unremarkable. Calcified splenic granulomas. The adrenal glands and pancreas are unremarkable. Multiple benign bilateral renal cysts. The bladder is unremarkable. The small and large bowel are of normal caliber with no evidence of bowel wall thickening. Severe diffuse atherosclerotic disease. No free fluid in the abdomen or pelvis. No free intraperitoneal air. Fracture of the lateral left 10th rib. Chronic height loss of several lumbar vertebral bodies. Acute fracture through anterior osteophytes at the right anterior aspect of the L2 superior/inferior endplates. Postsurgical changes from previous L3-4 posterior decompression. Acute comminuted fractures of the right superior and inferior pubic rami. Posttraumatic edema within the adjacent soft tissues/musculature. Subtle fracture suspected within the medial left acetabulum (axial images 72-78). IMPRESSION: * Acute comminuted fractures of the right superior/inferior pubic rami as well as suspected subtle nondisplaced fracture in the medial left acetabulum. * Acute fracture through right anterior osteophytes associated with L2 endplates. * Left lateral 10th rib fracture. All CT scans at this facility use dose modulation, iterative reconstruction, and/or weight based dosing when appropriate to reduce radiation dose to as low as reasonably achievable. Finalized by Jose Angel Hay MD on 11/06/2023 10:03 AM Normal [facility] XR CHEST 1 VWon 11-06-2023 XR CHEST 1 VW XR CHEST 1 VW XR CHEST 1 VW: 11/06/2023 8:55 AM CLINICAL INDICATION: Pain TECHNIQUE: AP view the chest COMPARISON: None. FINDINGS: The cardiomediastinal silhouette and pulmonary vessels are within normal limits. Lungs and pleural spaces are clear. There is no pneumothorax. IMPRESSION: No acute cardiopulmonary process. Finalized by Crys Acosta MD on 11/06/2023 8:58 AM Normal [facility] MR LUMBAR SPINE W AND WO CON [...] Lane. Pt had CMP labs 06/01/23 at [facility]. HX lumbar laminectomy 12/01/21 [...] Mcleod MD on 06/02/2023 7:34 AM Normal [facility] CBC AND AUTO DIFFon 06-01-19 24 ABSOLUTE BASOPHIL 0.0 X10E9/L Normal 0.0-0.2 [facility] Comment on above: Performed By: #### 1 4979-9, CBCA, 68362-0, 23119-4, 92300-6, PINR, CMP, THYR #### [facility] ([id number]) [address] [place] [address]861 #### [id number] #### [facility] ([id number]) [address], [address] [place] [address] ABSOLUTE NEUTROPHIL 2.9 X10E9/L Normal 1.5-6.6 [facility] Comment on above: Performed By: #### 1 4979-9, CBCA, 22682-7, 85381-3, 90260-8, PINR, CMP, THYR #### [facility] ([id number]) [address] [place] [address] 32312 #### [id number] #### [facility] ([id number]) [address], [address] [place] [address] Basophils/100 WBC (Bld) 0.7 % Normal [facility] Comment on above: Performed By: #### 1 4979-9, CBCA, 67073-6, 07245-4, 23363-7, PINR, CMP, THYR #### [facility] ([id number]) [address] [place] [address] 88491 #### [id number] #### [facility] ([id number]) [address], [address] [place] [address] Eosinophils (Bld) [#/Vol] 0.1 10*3/uL Normal 0.0-0.4 [facility] Comment on above: Performed By: #### 1 4979-9, CBCA, 60884-7, 10814-3, 06984-7, PINR, CMP, THYR #### [facility] ([id number]) [address] [place] [address] 45047 #### 66667-4 #### [facility] ([id number]) [address], [address] [place] [address] Eosinophils/100 WBC (Bld) 1.5 % Normal [facility] Comment on above: Performed By: #### 1 4979-9, CBCA, 84061-3, 54555-2, 17529-1, PINR, CMP, THYR #### [facility] ([id number]) [address] [place] [address] 45676 #### 03624-0 #### [facility] ([id number]) [address], [address] [place] [address] Erythrocyte distribution width (RBC) [Ratio] 12.5 % Normal 11.5-15.0 [facility] Comment on above: Performed By: #### 1 4979-9, CBCA, 87144-8, 29321-0, 95859-1, PINR, CMP, THYR #### [facility] ([id number]) [address] [place] [address] 82041 #### 56960-8 #### [facility] ([id number]) [address] [address] [place] [address] Hematocrit (Bld) [Volume fraction] 39.5 % Normal 39-49 [facility] Comment on above: Performed By: #### 1 4979-9, CBCA, 11535-7, 14880-7, 91780-9, PINR, CMP, THYR #### [facility] ([id number]) [address] [place] [address] 17236 #### 40358-0 #### [facility] ([id number]) [address], [address] [place] [address] Hemoglobin (Bld) [Mass/Vol] 13.7 g/dL Normal 13.0-17.0 [facility] Comment on above: Performed By: #### 1 4979-9, CBCA, 28358-2, 98288-2, 79452-4, PINR, CMP, THYR #### [facility] ([id number]) [address] [place] [address] 45164 #### 18883-6 #### [facility] ([id number]) [address], [address] [place] [address] Lymphocytes (Bld) [#/Vol] 1.6 10*3/uL Normal 1.0-3.5 [facility] Comment on above: Performed By: #### 1 4979-9, CBCA, 82614-4, 35618-0, 24540-4, PINR, CMP, THYR #### [facility] ([id number]) [address] [place] [address] 42934 #### 24665-1 #### [facility] ([id number]) [address] [facility] [place] [address] Lymphocytes/100 WBC (Bld) 30.9 % Normal [facility] Comment on above: Performed By: #### 1 4979-9, CBCA, 51961-1, 16472-6, 63577-4, PINR, CMP, THYR #### [facility] ([id number]) [address] [place] [address] 16564 #### 88791-8 #### [facility] ([id number]) [address], [address] [place] [address] MCH (RBC) [Entitic mass] 32.8 pg Normal 27-34 [facility] Comment on above: Performed By: #### 1 4979-9, CBCA, 03950-5, 07921-3, 11478-8, PINR, CMP, THYR #### [facility] ([id number]) [address] [place] [address] 09289 #### 08746-2 #### [facility] ([id number]) [address], [address] [place] [address] MCHC (RBC) [Mass/Vol] 34.6 g/dL Normal 32-36 [facility] Comment on above: Performed By: #### 1 4979-9, CBCA, 16853-5, 84572-0, 08159-7, PINR, CMP, THYR #### [facility] ([id number]) [address] [place] [address] 28437 #### 98032-8 #### [facility] ([id number]) [address], [address] [place] [address] MCV (RBC) [Entitic vol] 95 fL Normal 80-100 [facility] Comment on above: Performed By: #### 1 4979-9, CBCA, 58314-5, 59832-9, 15972-7, PINR, CMP, THYR #### [facility] ([id number]) [address] [place] [address] 81179 #### 74663-0 #### [facility] ([id number]) [address], [address] [place] [address] Monocytes (Bld) [#/Vol] 0.6 10*3/uL Normal 0-0.9 [facility] Comment on above: Performed By: #### 1 4979-9, CBCA, 35120-2, 85834-9, 44138-0, PINR, CMP, THYR #### [facility] ([id number]) [address] [place] [address] 73530 #### 63398-0 #### [facility] ([id number]) [address], [address] [place] [address] Monocytes/100 WBC (Bld) 10.8 % Normal [facility] Comment on above: Performed By: #### 1 4979-9, CBCA, 97887-7, 90080-6, 57302-1, PINR, CMP, THYR #### [facility] ([id number]) [address] [place] [address] 01220 #### 23936-1 #### [facility] ([id number]) [address], [address] [place] [address] Neutrophils/100 WBC (Bld) 56.1 % Normal [facility] Comment on above: Performed By: #### 1 4979-9, CBCA, 44151-8, 06197-6, 69726-5, PINR, CMP, THYR #### [facility] ([id number]) [address] [place] [address] 18142 #### 67762-5 #### [facility] ([id number]) [address] [facility] [place] [address] Platelet mean volume (Bld) [Entitic vol] 6.8 fL Low 7-12 [facility] Comment on above: Performed By: #### 1 4979-9, CBCA, 22998-9, 96407-5, 25325-5, PINR, CMP, THYR #### [facility] ([id number]) [address] [place] [address] 48393 #### 88487-5 #### [facility] ([id number]) [address], [address] [place] [address] Platelets (Bld) [#/Vol] 206 10*3/uL Normal 150-450 [facility] Comment on above: Performed By: #### 1 4979-9, CBCA, 26140-6, 62881-7, 30592-8, PINR, CMP, THYR #### [facility] ([id number]) [address] [place] [address] 94032 #### 23852-6 #### [facility] ([id number]) [address], [address] [place] [address] RBC COUNT 4.17 X10E12/L Normal 4.10-5.70 [facility] Comment on above: Performed By: #### 1 4979-9, CBCA, 82661-6, 61519-8, 35119-5, PINR, CMP, THYR #### [facility] ([id number]) [address] [place] [address] 50071 #### 54905-0 #### [facility] ([id number]) [address] [facility] [place] [address] WBC (Bld) [#/Vol] 5.1 10*3/uL Normal 4.0-11.0 [facility] Comment on above: Performed By: #### 1 4979-9, CBCA, 88107-1, 74441-9, 76888-7, PINR, CMP, THYR #### [facility] ([id number]) [address] [place] [address] 01973 #### 65612-9 #### [facility] ([id number]) [address] [facility] [place] [address] COMPREHENSIVE METABOLIC PANE Kory 06-01-2023 Albumin [Mass/Vol] 4.5 g/dL Normal 3.2-5.3 [facility] Comment on above: Performed By: #### 1 4979-9, CBCA, 92442-0, 68269-2, 95425-4, PINR, CMP, THYR #### [facility] ([id number]) [address] [place] [address] 88632 #### 87933-4 #### [facility] ([id number]) [address], [address] [place] [address] ALP [Catalytic activity/Vol] 56 U/L Normal 39-130 [facility] Comment on above: Performed By: #### 1 4979-9, CBCA, 74575-8, 17963-5, 45493-0, PINR, CMP, THYR #### [facility] ([id number]) [address] [place] [address] 38963 #### 08370-9 #### [facility] ([id number]) [address], [address] [place] [address] ALT [Catalytic activity/Vol] 26 U/L Normal 0-40 [facility] Comment on above: Performed By: #### 1 4979-9, CBCA, 18679-8, 95836-5, 24296-9, PINR, CMP, THYR #### [facility] ([id number]) [address] [place] [address] 02495 #### 30351-9 #### [facility] ([id number]) [address], [address] [place] [address] Anion gap [Moles/Vol] 3 mmol/L Low 5-15 [facility] Comment on above: Performed By: #### 1 4979-9, CBCA, 58682-1, 56244-5, 46319-1, PINR, CMP, THYR #### [facility] ([id number]) [address] [place] [address] 62866 #### 13968-0 #### [facility] ([id number]) [address], [address] [place] [address] AST [Catalytic activity/Vol] 32 U/L Normal 0-41 [facility] Comment on above: Performed By: #### 1 4979-9, CBCA, 91543-5, 14102-5, 44239-6, PINR, CMP, THYR #### [facility] ([id number]) [address] [place] [address] 49384 #### 68772-5 #### [facility] ([id number]) [address], [address] [place] [address] Bilirubin [Mass/Vol] 0.8 mg/dL Normal 0.3-1.2 [facility] Comment on above: Performed By: #### 1 4979-9, CBCA, 11432-6, 34309-1, 19071-5, PINR, CMP, THYR #### [facility] ([id number]) [address] [place] [address] 31413 #### 29288-1 #### [facility] ([id number]) [address], [address] [place] [address] Calcium [Mass/Vol] 8.8 mg/dL Normal 8.5-10.5 [facility] Comment on above: Performed By: #### 1 4979-9, CBCA, 22414-6, 22789-3, 08533-8, PINR, CMP, THYR #### [facility] ([id number]) [address] [place] [address] 52436 #### 29593-1 #### [facility] ([id number]) [address], [address] [place] [address] Chloride [Moles/Vol] 104 mmol/L Normal 98-109 [facility] Comment on above: Performed By: #### 1 4979-9, CBCA, 38274-9, 56919-4, 54858-6, PINR, CMP, THYR #### [facility] ([id number]) [address] [place] [address] 66088 #### 46778-2 #### [facility] ([id number]) [address], [address] [place] [address] CO2 [Moles/Vol] 27 mmol/L Normal 22-32 [facility] Comment on above: Performed By: #### 1 4979-9, CBCA, 87040-0, 94498-7, 55384-5, PINR, CMP, THYR #### [facility] ([id number]) [address] [place] [address] 88933 #### 07946-2 #### [facility] ([id number]) [address], [address] [place] [address] Creatinine [Mass/Vol] 1.25 mg/dL High 0.70-1.20 [facility] Comment on above: Result Comment: METH OD TRACEABLE TO IDMS STANDARD Performed By: #### 1 4979-9, CBCA, 79742-3, 39373-0, 48278-4, PINR, CMP, THYR #### [facility] ([id number]) [address] [place] [address] 30627 #### 62875-8 #### [facility] ([id number]) [address], [address] [place] [address] GFR/1.73 sq M.predicted among non-blacks MDRD (S/P/Bld) [Vol rate/Area] 56 mL/min/{1.73_m2} Low >59 [facility] Comment on above: Result Comment: Reported eGFR is based on the CKD-EPI 2020 equation that does not use a race coefficient. Performed By: #### 1 4979-9, CBCA, 75348-7, 09591-4, 29446-2, PINR, CMP, THYR #### [facility] ([id number]) [address] [place] [address] 65231 #### 46070-9 #### [facility] ([id number]) [address], [address] [place] [address] Glucose [Mass/Vol] 104 mg/dL High 65-99 [facility] Comment on above: Performed By: #### 1 4979-9, CBCA, 39401-7, 99158-9, 53505-0, PINR, CMP, THYR #### [facility] ([id number]) [address] [place] [address] 88523 #### 93482-8 #### [facility] ([id number]) [address], [address] [place] [address] Potassium [Moles/Vol] 4.3 mmol/L Normal 3.5-5.0 [facility] Comment on above: Performed By: #### 1 4979-9, CBCA, 62878-8, 76195-0, 22998-4, PINR, CMP, THYR #### [facility] ([id number]) [address] [place] [address] 64426 #### 22846-8 #### [facility] ([id number]) [address] [facility] [place] [address] Protein [Mass/Vol] 7.3 g/dL Normal 6.0-8.0 [facility] Comment on above: Performed By: #### 1 4979-9, CBCA, 56588-9, 33602-7, 89435-3, PINR, CMP, THYR #### [facility] ([id number]) [address] [place] [address] 40145 #### 62054-0 #### [facility] ([id number]) [address], [address] [place] [address] Sodium [Moles/Vol] 134 mmol/L Normal 134-146 [facility] Comment on above: Performed By: #### 1 4979-9, CBCA, 37522-9, 35672-0, 11625-9, PINR, CMP, THYR #### [facility] ([id number]) [address] [place] [address] 97397 #### 84525-4 #### [facility] ([id number]) [address] [place] [address] Urea nitrogen [Mass/Vol] 24 mg/dL Normal 5-27 [facility] Comment on above: Performed By: #### 1 4979-9, CBCA, 97323-0, 66234-6, 55672-3, PINR, CMP, THYR #### [facility] ([id number]) [address] [place] [address], [place] [address] #### 22137-7 #### [facility] ([id number]) [address] [place] [address] CT BRAIN WO CONT STROKE ALER Ton [...] Camacho MD on 06/01/2023 4:12 PM Normal [facility] CT CTA CAROTIDon 06-01-2023 CT CTA [...] low as reasonably achievable. NOTE: The [place] Symptomatic Carotid Endarterectomy Trial (NASCET)calculation of ICA [...] Mcleod MD on 06/01/2023 4:19 PM Normal [facility] CT CTA HEADon 06-01-2023 CT CTA [...] Agustin MD on 06/01/2023 4:19 PM Normal [facility] Fibrin D-dimer DDU (PPP) [Ma ss/Vol]on 06-01-2023 D DIMER 364 ng/mL DDU High <255 [facility] Comment on above: Result Comment: Results >=255ng/mL DDU: Results may be indicative of the presence of VTE. The use of the Wells score and further diagnostic tests should be considered. Elevated D-Dimer levels can also be associated with DIC, neoplasm, , trauma and liver disease. Elevated levels of rheumatoid factor may lead to an overestimation of the D-Dimer level. Performed By: #### 1 4979-9, CBCA, 34720-2, 37718-7, 35763-9, PINR, CMP, THYR #### [facility] ([id number]) [address] [place] [address] 88456 #### 76966-2 #### [facility] ([id number]) [address] [place] [address] Glucose Glucometer (BldC) [M ass/Vol]on 06-01-2023 Glucose [Mass/Vol] 106 mg/dL High 65-99 [facility] HGB A1C (GLYCO-HGB)on 2023 Glucose [Mass/Vol] 111 mg/dL Normal [facility] Comment on above: Performed By: #### 1 4979-9, CBCA, 18790-8, 44994-8, 02739-5, PINR, CMP, THYR ####[facility] ([id number])[address] [place] [address] 61482#### 16926-4 ####[facility] ([id number])[address] [facility], [place] [address] HbA1c (Bld) [Mass fraction] 5.5 % Normal 4.4-5.6 [facility] Comment on above: Result Comment: NOTE ADA Guidelines Result HgbA1c Normal : less than 5.7 % Prediabetes : 5.7 % to 6.4 % Diabetes : > 6.4 % Use with caution in patients with abnormal hemoglobin variants as the half-life of red blood cells and in vivo glycation rates are affected. Performed By: #### 1 4979-9, CBCA, 24833-0, 89362-9, 68379-3, PINR, CMP, THYR ####[facility] ([id number])[address] [place] [address] 77040#### 79432-7 ####[facility] ([id number])[address] [place] [address], [address] [address] Lipid 1996 panelon 4 Cholesterol [Mass/Vol] 169 mg/dL Normal 150-200 [facility] Comment on above: Performed By: #### 1 4979-9, CBCA, 37448-3, 32604-8, 56618-1, PINR, CMP, THYR ####[facility] ([id number])[address] [place] [address] 13884#### 35036-6 ####[facility] ([id number])[address] [facility], [address] [place] [address] Cholesterol in HDL [Mass/Vol] 40 mg/dL Normal >39 [facility] Comment on above: Result Comment: HDL <40 mg/dL - High Risk HDL > or = 40mg/dL- Desirable HDL >60 mg/dL - Negative Risk Performed By: #### 1 4979-9, CBCA, 16828-6, 34222-4, 77924-2, PINR, CMP, THYR ####[facility] ([id number])[address] [place] [address] 41138#### 69719-3 ####[facility] ([id number])[address], [address] [place] [address] Cholesterol in LDL [Mass/Vol] 69 mg/dL Normal <130 [facility] Comment on above: Result Comment: LDL <100 mg/dL - Desirable LDL >160 mg/dL - High Risk Performed By: #### 1 4979-9, CBCA, 34148-4, 25583-2, 77532-2, PINR, CMP, THYR ####[facility] ([id number])[address] [place] [address] 52917#### 56648-5 ####[facility] ([id number])[address], [address] [place] [address] Cholesterol in VLDL [Mass/Vol] 60 mg/dL High 0-30 [facility] Comment on above: Performed By: #### 1 4979-9, CBCA, 54649-7, 83734-1, 84759-3, PINR, CMP, THYR ####[facility] ([id number])[address] [place] [address] 03397#### 93584-3 ####[facility] ([id number])[address], [address] [place] [address] CHOLESTEROL:HDL 4.2 Normal 1.0-5.0 [facility] Comment on above: Performed By: #### 1 4979-9, CBCA, 40072-6, 55325-0, 90390-6, PINR, CMP, THYR ####[facility] ([id number])[address] [place] [address] 36565#### 65633-4 ####[facility] ([id number])[address], [address] [place] [address] Triglyceride [Mass/Vol] 301 mg/dL High 27-150 [facility] Comment on above: Performed By: #### 1 4979-9, CBCA, 09190-5, 41807-9, 50000-4, PINR, CMP, THYR ####[facility] ([id number])[address] [place] [address] 21935#### 09165-6 ####[facility] ([id number])[address], [address] [place] [address] MAGNESIUMon 06-01-2023 Magnesium [Mass/Vol] 2.0 mg/dL Normal 1.8-2.6 [facility] Comment on above: Performed By: #### 1 4979-9, CBCA, 17181-5, 57456-4, 63228-8, PINR, CMP, THYR #### [facility] ([id number]) [address] [place] [address] 32045 #### 83132-4 #### [facility] ([id number]) [address] [place] [address] PROTIME AND INRon 06-01-2023 INR Coag (PPP) [Relative time] 1.0 {INR} Normal 0.8-1.1 [facility] Comment on above: Performed By: #### 1 4979-9, CBCA, 59642-3, 32522-4, 72145-9, PINR, CMP, THYR #### [facility] ([id number]) [address] [place] [address] 80882 #### 02521-6 #### [facility] ([id number]) [address] [place] [address] PT Coag (PPP) [Time] 11.5 s Normal 9.8-13.2 [facility] Comment on above: Result Comment: NEW REFERENCE RANGE Performed By: #### 1 4979-9, CBCA, 92396-3, 49712-1, 12435-1, PINR, CMP, THYR #### [facility] ([id number]) [address] [place] [address] 37538 #### 64889-1 #### [facility] ([id number]) [address] [place] [address], [address] [place] [address] THYROID PROFILEon 06-01-2023 Free T4 [Mass/Vol] 0.95 ng/dL Normal 0.61-1.60 [facility] Comment on above: Performed By: #### 1 4979-9, CBCA, 75269-5, 91672-4, 38252-7, PINR, CMP, THYR ####[facility] ([id number])[address] [place] [address] 29149#### 68159-6 ####[facility] ([id number])[address] [place] [address], [address] [address] TSH 1.43 uIU/mL Normal 0.49-4.67 [facility] Comment on above: Performed By: #### 1 4979-9, CBCA, 59367-5, 19161-4, 23722-0, PINR, CMP, THYR ####[facility] ([id number])[address] [place] [address] 57535#### 04570-4 ####[facility] ([id number])[address] [place] [address], [address] [address] Troponin I.cardiac High sens itivity method [Mass/Vol]on 06-01-2023 1 HOUR TROP I, HIGH SENSITIVITY 9 ng/L Normal <21 [facility] Comment on above: Performed By: #### 8 9579-7 ####[facility] ([id number])[address] [place] [address] TROPONIN I, HIGH SENSITIVITY 9 ng/L Normal <21 [facility] Comment on above: Performed By: #### 1 4979-9, CBCA, 61466-2, 28119-0, 71771-1, PINR, CMP, THYR #### [facility] ([id number]) [address] [place] [address] 82417 #### 92718-6 #### [facility] ([id number]) [address] [place] [address], [address] [place] [address] 14596 aPTT Coag (PPP) [Time]on aPTT Coag (Bld) [Time] 30 s Normal 26-37 [facility] Comment on above: Result Comment: NEW REFERENCE RANGE Performed By: #### 1 4979-9, CBCA, 03192-2, 32471-9, 96932-4, PINR, CMP, THYR ####[facility] ([id number])[address] [place] [address] 14066#### [id number] ####[facility] ([id number])[address] [place] [address], [address] [place] [address]378 Provider Orderson 07-28-2021 Provider Orders [id number] [facility] 07-09-2021 Consent Forms [id number]#1 [facility] MAGR Preoperative Recordon 0 07-02-2021 MAGR Preoperative Record MAGR Pre-Op Record Summary Primary Physician: Enrique Rutherford DO Finalized Date/Time: 07/02/21 15:05:59 Pt. Name: ENRIQUE MIKE/Sex: 1935 MALE Med Rec #: [id number] Physician: Enrique Rutherford DO Financial #: [id number] Pt. Type: O Room/Bed: [facility]/1 Admit/Disch: 06/21/21 05:54:00 - 06/22/21 12:10:00 Institution: [...] Signed By: Isabela Soliman RN 07/02/21 15:05 [facility] Coding Summaryon 06-28-2021 Coding Summary HTMLBase 64 TlkhwtduHXt6gBh+PGhlY WQ+MZ1JGLHsI12cyIFmrI 8GX5qTQL9MANNHVPIHQN8 VSX2tcUN5AWwqX9QohzZm HflurDCyYR10UBq2ODO4p TibTKmouR6lwDFzQ5w5Vw OsKO33jG85ODvxFRYvExV 3LjZpbjsgbWFy O9djNfGyrWXyXlx+PHRhY mxlIHdpZHRoPScxMDAlJy NcmIefYS8wSk6hMQJyHBT vbGxhcHNlOiBj c2yrZEGgBCyhXD3ghYiwZ 8JolHD5GLIxq4s8La62eC I+RCWqWJS5uUxvRIlzf48 3LdOis5rmWHW1 cCHtJVtsSRE0P58ch1G5Y UWuRHVeKOQ5pRS2bD3rfY fjcabdI2YxjMPjVcI3FYV 5cCOxqQ4giMgp tbybcN7cWok+E60FFS0UK NVMSB7SKlm6E4EsBieupX I+LN44VEMbSM69tCFziBL te9fwoGw7SzPt EWQvAQR8hMgaTGytw8DyZ IYeT06duQXgv5B1JRHatW sxmILnLoSepHJ1cP5sOTb mtunxf0nwsbzy Xfmuo2cjkn63fF04T09dU VywEMVcZWZ4TRTwMECnkO cgmd9uqJ0mZo2+AGzqf0w fo6xtsJp0CaTx RQOggpTodDsnAMP8u8YpN j61W5SgwOouj9QdVan2pk 00uJPve1K4bQT9XFxlOSF gaD2dUMlmXeQ9 OQNbTiVhsF48oFXgKMmdD i9omPcbvVaeTA8qNRAqwe frUIJubT8iZHUrxETnaJm dTF4bSBDiqpyq w459TfUqSNA9PKJomKSrP 9EblV6lNgExUQQoVWRyC3 EfbLEcNUqvD014PRnbMhD 2JQGjyySrC1Xt GMEqjCriCkE1g7J0Cq6Wv 5VsafkrQNX6JZufJQB7Hc O4OpWiPuD0D6GuDbv5ASD cfRvqKI7iJ8Jy WVYdtbxupbvtbHB0ILDyP SMsjJ65bGJzMJmjLu5xx7 Y1z094MPUeHUMmfK88Kp9 udDogMTBwdCBU dX8ivjyky1inrysjEgBtS VHjLRx9CVk2QGQmuYnfYg OzXJJ8DuD5NVD8uHVizC4 pwSvwjdjgvP0t Oyc+I54bwE3yOGM0AGH3c qhvCYEnneXrNA88YV54L1 RyPjwvdGFibGU+PGRpdiB hiRzmIA0sRaOv h7mhd6SyPYroL9TwIRAvC UafWdh8DOGvCMC6rKV9aB 8rFEFmIMlta2D9gFM4V4N cjpBgte5ve5mu VALoXBcjY07suYRdg0O8I IOenUX2AVHadMktYbKooC 93Oyc+SZLcdArpd7NcAju ls9rnq6vdwMi6 GgOjQHOwqxFwhDvuYEL4b 9JuAi20R00kQKiqLMCySX HdHIJrYFUhgYptxt9ppW4 wIi8+PGNvbCB3 rSR2pQ0sTTVlUzL7KWysW 326GlNyaLAuDhykm6uwg4 lezJu0AjCzOBPykiShhTi bBEC2w8QbFu77 L12xCMnvIMGlFEIeMSBiR SFicLlanq5ayP9xAa6+PC 7li2eoic18fU37xXO+PHR rKQH9dObdPLrm TUVmeM0kVIolXwX0UOQgU uXiyU19jRTjQLdnEb3kxU tbxGklAE2rULMknbuwr34 8AhZls0oaNSXv fQQgUNavIRJ9S27ux1M0Y NBeDXQgKJW7fQH9eB6cdQ lnbjogbGVmdDsgdmVydGl wICwdMKwmY241 IHRvcDsnPlBhdGllbnQgT iRdOJr2M9HpBdu5RFCjnQ wmJY1fmNFsQBswSz9wuMg xuSivFR0eWJLj byjxy015LyXxw4lyIXYap SIvYDzuLNA8G14fh4G7NY XaPIZrGLO6zWJ9zX6ncOy nbjogbGVmdDsg swYcaApoNCokMCcbK233W HRvcDsnPkJpcnRoIERhdG B4LY88ZO87mZHhs7O6dTJ 1H7XaGQCgklhm vxgowDV7EFJsRHMkjU08K h6giAozQb6jTNQoRHE5IA HeyXLzB9DwhN2rYaUcYUO gYESlB4RaaSWi EFmdU294WRkaSlV2HIWvn gQuL5YfDDRjkTlnGeF8c9 W5Ko8MN9V5UZ28VX38qDZ qu1K6iOD4M8Bo RRZldqmcgfrgqFR1IEXgV MSkaN58Ci3itFygYv5cCB LeDCT7DCIiuZDzH8WviT4 yOiAjMDAwMDAw E8DlfCBcPBbxM990LYnmR tT6JZXgaaWaM2MmBFGbjY baWmS7i7X4Kd4CQOr2HP8 4KA02eXPbw8H8 iEO7H5MoJDBzhnseqvkij LE3UPIvZEDzjQ15Wq6ufZ aqIs0uKLOgAZU1DHIytNK rQ1CkaX9zGwFb VEShZSCqI1ZcuLDeNJcgK 829YTuvUeM6XRNnoiKeS7 ZpCOMekIzrIxO9a9D6Di3 VSIYpDS24GRF0 fKS3CZ66UD00S8GtEhtiv GFibGU+PHRhYmxlIHdpZH RoPScxMDAlJyBzdHlsZT0 iMj6lDWPgYISl qLxxfQGuDlPnm8uuGWHbB ZxbDQ3tcPbqZ6CwvCG8JI Qta8d6Tl46B57fS8XlqTC +RZNyfRD0bAF3 kS1gGrJlOuB0NUxsT116V aKcjWPyVkjgx9wei1ccqZ s9DxJ2SWVqczSraZerRRJ 6s8YeCy37Z39j IHdpZHRoPSIxNSUiIHZhb Kpzzs5jqF7cBl6+PGNvbC U9yMM7xR3aSqIbWiF9IIs eB958WpRdqLTi Tteqh9tvt8kmjSj6QePxY XOznqHzcEozKNX2e0PdNq 75B4MowJtdy3XqSgi9ah9 4iGDgx1Z5tWI5 F8ZvNVNzumzljCJewLblJ H2sEVAdjeubGFBcvQ4bTO DaG2q1SkYwRdB6BAowK1G swnE1GQWzuZBu RDrrRAT6T85ar5Q1MLYiS PDwFAE4fLV2dA7xcPlhmp ogbGVmdDsgdmVydGljYWw uFNfoA696ALAq sHuzQZWltH7qCEWxfQXhb AraSZ0wKNXbiexaGrUTHt YfASiRXLJIEFS0U1NrYch 2LYZglVvrDN7j kXJtIHvaJp0uaNzehOkgD F0aYZMphcikVWFpaU3aHG VtgWItwIzuNU1uMTRhzpg sm881NrOdWDR2 QGGxiALkI0XovK2eLgSyA UYxDCXnD3MoeLZsYXmwP9 36UHbbWyV7CMKxndGpB3N sLWFsaWduOiB0 u2N4Ge2aVc8tBZ8jBHV2Y O02YB68dGDpd5U7yBM7L5 PtGRLazdttenpcxNP0BZZ jWRYmiS63fLVd CAfqFf1jp6T3u818WFJdQ QWokM99Or2ixVfhXEMqsX RFkM0abmaql8pctweuIsZ uSDHgZEu9QPw5 EMGcwOqjEkUdQWF9GgA1U ZA8mRCmkT5btGsiisdznF 9wOyc+YAYuOGOukcV3L6B lKcl1ULYjtIvz JG1ecLVgQBezDc2zoPqjw OqyFS6mYKOninzzWZXgdA 9hVQDobUAlfWqbUP9pMCA dfagaf790RaZc DNC8NKIzxOHiP4CmlL0tI bAyHDAxBHWtR7WbyFHuWM doA445NErnRqS5OYNzwzC uA8ZxZQYwpIzy FmG2k3T4Rg7NZHhPFI72V Z46dUQcr3E5uRD5M7TlTK JbzqkmthzqcNC5SRVgQVR cnE22pOZvFXnv Ww9cc7F3e618ZCTmPFKpm P02Fa5kdEesNAUvcFRDaP 3fsrejr6wqhphoWcRvRZU oHHe2OBc9GJWl vHlyDsSjEIH0JiA7ROZ4u PGstW7yfZzmjipjgL4bPq c+H2LgKAE0BMOey041X6C kPjwvdHI+PC90 MHVuRR00gLNsiAKlh0wud Xk8EqCyGGGnDVO7sLesLI wxe5TxLVGuT80tsONyu2I 6IGNvbGxhcHNl ImTbdFH1nF5jZXmafznsy 0wmgfmqNukfc4umvv20sV 36F75wVOhbTTCfCJCiYUS mWNMjsFzbwv8n cZ3iQa0+ZZUrtDQ1xGW5q D1jNxXwSyY2HUfwR539Qv ZcwKGqQcfme4svd5ibjPh 9IjIwJSIgdmFs gHvlRIV1c3UrMw09C17iE HdpZHRoPSIyMCUiIHZhbG vsku2ijC8mPx1+UO3hl6i nxn98fX14pJO+ VYJyLSR7pNmoHBhrBIXkg Z6eHFdvZdY7TEQvTbEraC 08jYAvIXlkYu0wnZnvkXc gTN9xQQEarnmb d248GpQda3aeUZCvjVHvE JdaUMB1I18ec3I0OYReWZ EkYKJ6aMR2xZ2jjUxbjsu gbGVmdDsgdmVy qSobYGsqTCssN212ODTay FngHsXflKWsQ5jomtXXYT 1lOjwvdGQ+CIQxXBA7kOv rRZdrWREubW8l NWTyO0v8VaKbNfQ6RMvhS 1CstwO0FZSeuHVwTDIjpM QCcI4ogtkve1qmffkyWqY gWITbIUo8UTw7 VCFgtVxkEdClQNC8NhP5O JK4wPOtcQ3dxMpxlbrpuZ 9wOyc+RklOOjwvdGQ+PHR rHRJ0nFboYOky JAPdzQ3zCUPlP7t8CpRhL wC7ZJqvS3ArbmF7FCCnjO PkILYwyMVBoA4fvjdsr8w vcjogIzAwMDAw SPi9FMv6XQOwjNneKgJgT DL3QhB2TRW0iIYusD4baJ baeobctH6gDbl+TVJOOjw vdGQ+PHRkIHN0 qPlsKIohRULbaS3lUFZrC 9c5HmVoIaT6SGwzX5Dfyd Z7RIPbeQTvUVHdaYPPxA9 nxrpcj9avtupm GwZaJEDlFGs7BJl7WFKfy YugCqTxXLH4UsB8VLR2vW EosZ6ouAycflwgtB7dBbt +YVX1AUX0QC27 BS24B1NxRkheeSBhjAH+P HRhYmxlIHdpZHRoPScxMD DdSgXqqQwfUA3dYk8cMOO yLWNvbGxhcHNl OiB (more content not included)... [facility] Consent Formson 06-23-2021 Consent Forms [id number]#1 [facility] Discharge Instructions [id number]#1 .00[facility] Telemetry Stripson Telemetry Strips [id number]#1 .00[facility] Consultation/Specialist Note on 06-22-2021 Consultation/Specia list Note [...] [Verified on: 06/22/2021 07:09 EDT] BIB [facility] Inpatient Patient Summaryon 06-22-2021 [place] [address] Patient Discharge Instructions Name: ENRIQUE MIKE : 1935 Patient Address: [address] [place] [address] Primary Care Provider: Name: JERMAIN MENCHACA MD After you are discharged if you find you have any questions, please, call [phone] ext [phone] to speak to a nurse. Discharge Diagnosis: [...] alcohol and/or drug addiction problems; contact the [facility] 12/09 Crisis Hotline -Text 4HTDR ee 402963. If you received any narcotics, sedation, or [...] or sign any legal documents [facility] would like to thank you for allowing us to assist you with your healthcare needs. The following includes patient education materials and information regarding your injury/illness. ENRIQUE MIKE has been given the following list of follow-up instructions, prescriptions, and patient education materials: Follow-up Instructions With: Address: When: Enrique Rutherford [address] [place] [address], [address] [place] [address] [facility] (1) 06/29/2021 10:45 AM Medications During the [...] list. Medication mariana (more content not included)... [facility] MAGR Postoperative Recordon 06-22-2021 MAGR Postoperative Record MAGR Phase II Record Summary Primary Physician: Enrique Rutherford DO Finalized Date/Time: 06/22/21 07:37:50 Pt. Name: ENRIQUE MIKE D.O.B./Sex: 1935 MALE Med Rec #: [id number] Physician: Enrique Rutherford DO Financial #: [id number] Pt. Type: O Room/Bed: [facility] [place] Admit/Disch: 06/21/21 05:54:00 - Institution: Phase II [...] Signed By: Karla Moss RN 06/22/21 07:37 [facility] Progress Note - Nurseon 05-0 Progress Note - Nurse Pt discharged to home. Taken to awaiting car via wheelchair. Belongings sent with pt. [Electronically Signed on: 10/06/2021 14:53 EDT] Emily Kennedy RN [Verified on: 10/06/2021 14:53 EDT] Emily Kennedy RN [facility] Progress Note - Nurse Surgical dressing removed. [...] RN [Verified on: 10/06/2021 14:53 EDT] Emily Kenndey RN [facility] Progress Note - Nurse Shoulder block wearing off. Pt able to move his wrist and forearm. unable to wiggle fingers but tactile sensation intact. Circ checks WDL. Pain level 4/10. 5mg Oxycodone given. [Electronically Signed on: 10/06/2021 14:53 EDT] Emily Kennedy RN [Verified on: 10/06/2021 14:53 EDT] Emily Kennedy RN [facility] Anesthesia Noteon 06-21-2021 Anesthesia Note Patient: ENRIQUE [...] DO [Verified on: 06/21/2021 11:47 EDT] Rod nAn DO [facility] Anesthesia Note Patient: ENRIQUE MIKE Age: 85 [...] = 50 mL, 100 mL/hr, IV Piggyback, Crew Foreman LR 1,000 mL: 20 mL/hr, IV Lidocaine 1% injectable solution: 0.1 mL, ID, Once, PRN: Other (see comment) tranexamic acid: 1,000 mg = 100 mL, 300 mL/hr, IV Piggyback, Crew Foreman tranexamic acid: 1,000 mg = 100 mL, 300 mL/hr, IV Piggyback, Crew Foreman Documented Medications Documented Aspir-Low 81 mg oral [...] (basal cell carcinoma), face / SNOMED CT 4032796257 / Confirmed Hypertension / SNOMED CT 6658645801 / Confirmed, Active Problems (2) BCC (basal cell carcinoma), face Hypertension Histories Family History: Entire family history is negative. 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 Back fusion (650272333). Chest tube insertion ([id number] ). Comments: 06/04/2021 9:17 EDT - Elvi Barber RN left lung 1998 Inguinal hernia ([id number]). Rotator cuff (28995537). Hammer toe (858402310). Social History Electronic Cigarette/Vaping Assessment Electronic Cigarette [...] / Management Results review ECG interpretation Plan [place] [employer]#( A) physical status classification: [...] on: 06/21/2021 07:57 EDT] Rod Ann DO [facility] MAGR Intraoperative Recordon 06-21-2021 MAGR Intraoperative Record MAGR Intra-Op Record Summary Primary Physician: Enrique Rutherford DO Finalized Date/Time: 06/21/21 09:51:01 Pt. Name: ENRIQUE MIKE/Sex: 1935 MALE Med Rec #: [id number] Physician: Enrique Rutherford DO Financial #: [id number] Pt. Type: D Room/Bed: [facility] Admit/Disch: 06/21/21 05:54:00 - Institution: Case Times MAGR Entry 1 Patient In Room Time 06/21/21 07:28:00 Out Room Time 06/21/21 09:43:00 Anesthesia Start Time 06/21/21 07:28:00 Stop Time 06/21/21 09:45:00 Surgery Start Time 06/21/21 08:06:00 Stop Time 06/21/21 09:37:00 Last Modified By: Brenda Constantino RN 06/21/21 09:50:58 Case Attendance MAGR Entry 1 Entry 2 Entry 3 Case Attendee Enrique Rutherford Jacquelyn RN McMurray SPARMAKER/MARCIAAEliel CST Role Performed Surgeon - Primary Paving Contractor Commercial Producer Time In 06/21/21 07:28:00 06/21/21 07:28:00 06/21/21 07:28:00 Time Out 06/21/21 09:16:00 06/21/21 09:43:00 06/21/21 09:16:00 Procedure Arthroplasty Shoulder Arthroplasty Shoulder Arthroplasty Shoulder Total Reverse(Left) Total Reverse(Left) Total Reverse(Left) Last Modified By: Brenda Constantino RN, Jacquelyn RN Burns, Jacquelyn RN 06/21/21 09:43:07 06/21/21 09:43:07 06/21/21 09:43:07 Entry 4 Entry 5 Entry 6 Case Attendee Vivian Newman DanielYolis de la rosa SPARMAKER Rod Ann DO SPARMAKER Role Performed Commercial Producer Scrub Personnel Anesthesiologist of Record Time In 06/21/21 07:28:00 06/21/21 07:28:00 06/21/21 07:28:00 Time Out 06/21/21 09:43:00 06/21/21 09:43:00 06/21/21 09:43:00 Procedure Arthroplasty Shoulder Arthroplasty Shoulder Arthroplasty Shoulder Total Reverse(Left) Total Reverse(Left) Total Reverse(Left) Last Modified By: Brenda Constantino RN, Jacquelyn RN Burns, Jacquelyn RN 06/21/21 09:43:07 06/21/21 09:43:07 06/21/21 09:43:07 General Comments: ARTHREX REP: KOBY GARCIA AND LEILANI RUIZ Surgical Procedures MAGR Pre-Care Text: A.20 Verifies operative procedure, surgical site, and laterality Im.150 Develops individualized plan of care Entry 1 Procedure Arthroplasty Shoulder Primary Procedure Yes Total Reverse Primary Surgeon Enrique Rutherford DO Surgeon Comment LEFT REVERSE TOTAL Start 06/21/21 08:06:00 SHOULDER - ARTHREX Stop 06/21/21 09:37:00 Anesthesia Type General Surgical Service Orthopedics Wound Class Clean Technique Details Closure Technique Primary Entire procedure No was performed via laparoscope or robotic assistance Last Modified By: Brenda Constantino RN 06/21/21 09:43:06 Post-Care Text: O.730 The [...] of the procedure: Last Modified By: Brenda Constantino RN 06/21/21 08:16:49 Post-Care Text: O.760 Patient [...] last 60 minutes Last Modified By: Brenda Constantino RN 06/21/21 08:13:51 Patient Positioning MAGR Pre-Care [...] Met (O.80) Yes Last Modified By: Brenda Constantino RN 06/21/21 08:14:22 Post-Care Text: E.290 Evaluates musculoskeletal status O.80 Patient is free from signs and symptoms of injury related to positioning Skin Prep MAGR Pre-Care Text: A.30 Verifies allergies Im.270 Performs skin preparation Im.270.1 Implements protective measures to prevent skin and tissue injury due to chemical sources Entry 1 Ski (more content not included)... [facility] MAGR Intraoperative Record MAGR Intra-Op Record Summary Primary Physician: Finalized Date/Time: 06/21/21 07:33:10 Pt. Name: ENRIQUE MIKE/Sex: 1935 MALE Med Rec #: [id number] Physician: Enrique Rutherford DO Financial #: [id number] Pt. Type: D Room/Bed: / Admit/Disch: 06/21/21 [...] Klaehn, Margaret RN Role Performed Anesthesiologist of Paving Contractor Paving Contractor Record Time In 06/21/21 07:09:00 06/21/21 07:09:00 [...] Condition Intact Description Report Given To Brenda Constantino RN Airway Maintenance Patient Status Stable Oxygen in Use? Yes Airway Device Nasal cannula Flow Ra (more content not included)... [facility] MAGR PACU Record Summary Primary Physician: Enrique Rutherford DO Finalized Date/Time: 06/21/21 10:37:04 Pt. Name: ENRIQUE MIKE/Sex: 1935 MALE Med Rec #: [id number] Physician: Enrique Rutherford DO Financial #: [id number] Pt. Type: D Room/Bed: 221/ Admit/Disch: 06/21/21 05:54:00 - Institution: PACU Case Times MAGR Entry 1 In PACU I 06/21/21 09:43:00 Discharge from PACU 06/21/21 10:28:00 I Last Modified By: Isabela Soliman RN 06/21/21 10:36:28 General Comments: Pt awake and oriented. VS stable. Transferred to room 221 via bed. Finalized By: Isabela Soliman RN Document Signatures Signed By: Isabela Soliman RN 06/21/21 10:37 [facility] Nutrition Noteon 06-21-2021 Nutrition Note Pt admitted for scheduled Lt shoulder surgery. Diet already advanced to a Regular, ate 100% of lunch, No wt hx available, denied any wt changes on supervisor sawing and assembly assessment. 06/04 pre-op labs reviewed, mildly elevated BUN noted. Pt at high nutrition risk r/t age greater than 65yr, however, no foreseeable nutrition concerns at this time. To follow. [facility] Operative Report - Surgeon/P catalina 06-21-2021 Operative [...] on: 06/21/2021 10:15 EDT] Enrique Rutherford DO [facility] Patient Handouton 06-21-[address] HARRIS [...] or concerns, please call the office at [phone] -Follow up as scheduled [facility] Progress Note - Nurseon Progress Note - [...] on: 06/21/2021 14:30 EDT] Phyllis Kasper RN [facility] XR Shoulder 1 View Lefton XR Shoulder 1 View Left EXAM: XR Shoulder 1 View Left HISTORY: Status post Shoulder Replacement COMPARISON: None. TECHNIQUE: Single view FINDINGS: Normal alignment and unremarkable early postoperative appearance left shoulder arthroplasty. IMPRESSION: As above. Final Dictated by: Eliel Garvey V Dictated DT/TM: 06/21/21 4:52 Signed (Electronic Signature): Eliel Garvey V 06/21/21 4:54 pm Technologist: MARIELY BENITEZ [facility] Comment on above: Order Comment: barbara lt status post shoulder replacement Coding Summaryon 06-18-2021 Coding Summary HTMLBase 64 SnsnubzeDGu2yDh+PGhlY WQ+NB8JVIRbO90grUNlvM 6MC0vSFN8VYOFMOYONWQ9 RLL2ysPE6ULojZ0CbsrAl IdgzrKUjZZ66VVs0VCE0b KbpJZjsaK2mrYKvT2c3Hp CxGH52uW86RBmbSKYhUhQ 3LjZpbjsgbWFy L1esTlHoyVExWoi+PHRhY mxlIHdpZHRoPScxMDAlJy VghBylCC1sVz4iOEZuRPW vbGxhcHNlOiBj x4rhWXCtMLjrUE8ouZlzX 4NnfCH5ERCmy1r3Co96zC I+CHHlBGV0bJlvFIzrp41 0ZyNvm8hyWRD3 mQPnBXraNQZ4N70xi7M0E ETwKFFmTWV5gRJ7iQ8fwV xyexcvZ9KgjRWuWpU6BRJ 3tWOevZ4qwQsf xcrzdA6hGti+J06HTE6MD WQCKK4DSfe1B0QhZxpnnX I+WA92ZUNwFA08hXPqbKR uz9gqiGp4LnOo OCCgGGZ1fYevKFhqe2PoH KWcG31imKNyl8I8MJFtrA vvxBVvZuZjpKK3cR0sNKw favspl2tzwwuh Lpund0daxt90iA75G88yH XfsLGQzEHI2LQUlZPGnqQ wtqz6zhH3eIp6+NIwpl2r vh5iwuQo2TfQu EVMxjnPtrQonAKG7v5GcW l07S2QsyEwrk7PtCgp9qc 29qESkl0L0iGH5YUviRIP okO6mLFazZpH7 WNHjWbOulR06tJOfCJrbE i1xrAgqzCwaFU7gHVEfav xkFTMivR0cDFKhrGZwaCm bYU3dJXLtywwg k615AvEuSJI7AECrkWKnD 9DlxF1rMtOqLPMzYYGqF0 VswMPhUTaaP263ZDtfShQ 8EEIpfoLnT1Oh HMHlrNddEnW2n1D0Ls2Jk 5UaxlodWRB6ICaeANS1Hx R0QpTrKnK5I8KiQsr6VXG ncSzsNH7xE3Ve OYYfspwwojcpqMS5ONCjH RAwhG83eZWvTFbuTs5zu9 V0k674PXByRBDxoQ58Ez8 udDogMTBwdCBU wH2kbjsla1lsiqrpTzWpF MLrJCr3HTw4HSPsrTbxLz YzZYG7NuZ2UHB3sOVzbH4 atGnkclbbnD6a Oyc+J28ckX4vQAO6VLI2b yjiEFMbiqQaBP08KC21P9 RyPjwvdGFibGU+PGRpdiB paEdpBQ4qYoUs k6hia8PwDVenV7RmYIQgU RplKmp3WYNiFAX5pCD2jM 2bGVBcRLxik2I4nTK5E4S azdGrra3pi2dj JQPqSBdwB29hxARos6B9A ANulBJ3TJUlaQpoWxRnoW 93Oyc+ZHEwePdax5TbIty do8hey6sxrYd8 BgMmSKNvtfRohLlmGPR1b 0QvSn56V24nGVrqLSKpLX NzLOPlIMDuzMmfwl1zmU7 wIi8+PGNvbCB3 uWH0zV5gISPjVbH8RYtbK 441YiLhyKNqAmhzi9cxp4 sbqEm0UuOvSKAsmjJtxRu iBOC7k4UxYz23 R78xNPgwSKGhXGVrJWZzI SDhiKqnyj9jvD1hYe9+PC 5wj2rgtd89pT19yUJ+PHR kKBZ5cAryEEdy CEGguF8fTGgzJfQ5AXZvJ iJwoZ26kREwLPokDj4twB fdjXlwZH9rFGSipkrho25 7AgDbg3jwLMQv qEXwXOrkVTI7B50wu2L3J HNgYCDdNVV4pAK3bQ8piW lnbjogbGVmdDsgdmVydGl yEOmvMBfhQ958 IHRvcDsnPlBhdGllbnQgT qKlETz5E7HsKvh5KXWvrK gvHL1vkVAzROrdVy0rkCu aiOjxHW0xOYIk uzlyj780PgSlp2dvYPCsb DLoGZcnTDZ5L57xi8L4WS ExCWNpGDH1aCV9zY5eaTq nbjogbGVmdDsg ngEjxUylYRitOQffL773S HRvcDsnPkJpcnRoIERhdG C4DY63II13pXDqv5P2pRD 6U9GfLVGkrqjf fqeldJV4KABhZAXovQ63S m8dcSclDd4xWTZaGUG8DD WhiIYoH4FxnN4aYzReXSI oXVEqO9LkaSWc FLxsR686WUjpQpU9JTMmc tQjT9LpCESviZzaWoP6s3 L4Wo7LM7E2GE02JZ67iZH dt3B2zOH7F9Ik TBFufxrsianhxXL9YCWsJ JSvvC72No3wwEfiCx4xPR UtGLJ8MSXrnMWyZ9RsvY7 yOiAjMDAwMDAw J8IfkLAoTYfwV160WEbjV kY1UTOxxeAaM3RgUHReiT weFxE7z8T6Gu6CZKt3SU6 5MN86rLXtw4W2 eKX2Q3LbDEWkytdfmyjay AV9JNPcKMTorE42Dg0bzU svRu5vNPGfEQF5UOTskAT bO7PheP7wPiIm WPIzPETbZ0SurUQaDKwiH 671YGdsTbU8GRJiwiYtY2 YpPKRceHsiQzC0r5Z3Dc0 KYUBjKC33HMG8 aXI5OU71ME59A5UfKdnbt GFibGU+PHRhYmxlIHdpZH RoPScxMDAlJyBzdHlsZT0 zAg3dBSOrXPJg bVkhjENcSfKbf4qbNPDfT CizDP4heFbqP1UbyLP4WB Njz8s5Al36X82eS5TenGS +SFVurTU2dPF8 iD2tTtEaBrG4KTihD200L rIgvFTdHgpyu0vky4nnbM g2UoT1UMBsxlYjpDwuZCQ 9k2UtYb44G47l IHdpZHRoPSIxNSUiIHZhb Noqwc9oqC8iLr0+PGNvbC A9qUX7jJ2eVjNlBtE8PGi fX992CpQuiOSy Rmegs5omb9mzvBt1KaYgO ENwsiIwsBqnWNM8m7UsWg 80X4XovKkit8HzAae1kd5 4xFQhf2L8qFD9 Y8PoWCDvjujloSTvqYhkB C6mGKNgxqjwXQQxxH1bLG JoD6f0ZhDfDnJ7GBglW7T ypjF5KSUysQZs IPioIUZ9O40lx4K5GBMaP HTvIBQ4pNN6tU8wuYpkhz ogbGVmdDsgdmVydGljYWw tOGpgI788SEAd uOawLDJzyX5rJVZieUSgv DtzHJ2wIDBzbxyaHpMVVl EvYXxCIRAKOQR6L0MiLns 8ETDenFstSM1y zLAlSPgoJx8fsGvclHjkI M5fYELlsybsSNUcsM4hDH HktZFboDbsHH6mMDXygkh hd959IrLtFIZ9 GSFocCEgD0KhkK9wPrBlD FQjZMAbG0WvdFSkPZctR2 11ZFlcSsU7CUTqlxXtY9G sLWFsaWduOiB0 k1D7Eq1vEt3uIH0xWEV1T H33GU78sBMux3Y4fPW6Z5 DjRFJkpvualdmtbTX1MNR qDGItiS95mJIx CPwdPp9mf9B2f567DFJtL MDogA86Hk6emCvyVUIaaA IQrF4nlxqxe0jkvqutWtS zNYMcNJh8VVz6 PXDtoXrwQyYyEKX5YlH1N RP5bAChxJ6yaRyquzkhiH 9wOyc+IYRhGTFpoeC0B3X bEto2AEVkqRaq BS1mbANoACitXj3yaEqmv PbnXR3fUHXoggplBZUrsA 8tVHUovXEihQceCY8jXAI ankisl553GdYl VPS3ZMUemAIrF3SvqO5cK dZiIJHrVWQiL4CrtQGbRA zeY180PMqqKyL6GDKzhpG cX2HtMACobPpx PeH4w6W4Yu1KYZlRBO78D L33wFVtv3O4hOB6S8CdOO KhcbuczcsmzJD3GNRpTLT pzD32sYDaHXjt Tp3ma2P7p121DFKjVXJgw F16Fl8nqJcdVYCbbMBUiO 0extqti0oiozbyOeBoOCY iBLz1UOb9KGFp zKlsLkVlCXB1HmC7WQO2b RTsqE6vgEgrhsxkgF3iBk c+H1U3O2EsQvgsmSD+PC9 5UAEeKK46vXOb pEFhk9ycvOl6KpYpFJOwB EJ8qXmeAHxny4LdNETaQ0 1tyTBur1G8NXUxgTdcnWK uNyHdnNL6cO7z JKqpqpzmb8phzhtmHyuly 9pwuw08fR07T40gTDeiDC RoPSIzMCUiIHZhbGlnbj0 nhL8wIf8+PGNv gMN5aGQ8yL8pRyYfKrD7C CrmS615ZtOflYVlIycou3 jbu9jyuKu5VkNxKXQsvbK dfIqsARM4p0Kn Ng13J17zFNdjQQTePHPwK QKrGZUkeNzzcn6gmI3pIv 8+MR2xe4nvhe10lS12pZP +CGXvMQD2bYkm EMlbCOJhpD6mIPwtJbL2S YFpKcUiuS73dHAiBJozHy 9bgFxkuWcoUM4hWPVhbfp uw173WgUbs4dj LHSotIAeQJjkETK6O04og 6A6JRKoUVEwOXP6yXR1jH 1hbGlnbjogbGVmdDsgdmV ydGljYWwtYWxp D686OTPynZycDyXbdUTtX 6kcbhBQJY5rQtzypBM+PH ZtJUT3hXqfANaaVWDusP9 hXYNkQ4n1UuCc TzB0NUuqZ4FfpvO3WTWgw YTiCEUvcXJGbO4nmkrnw2 isurinLfFcFSTmSWh0BQf 0LWFsaWduOiBs PIH0SdL8RCD5iMHxvA8ge BtvltfwiP2jWou+RklOOj wvdGQ+TBSvALY1xQdwCBs tQLFiyV8aWLFb J9s4DuQlZiR0IFshQ7Vjy nU5ICBeiNWnVUXagELSsY 5mpcdcy3nofbjgZrGgYMV mSPn5ZNo4FHZb bUdaAqOyGTD6EoZ3YEY7i EBgrB1tmBabrgnroZ2nSp c+TVJOOjwvdGQ+PHRkIHN 0eWxlPSdwYWRk jT9fRLTnZ2c9MbRhFzD7A GvoX1BjceN5FVKcyDMcSU WyeKDDfS7ewuygy4schuz gIzAwMDAwMDt0 EIs4GZMnwOeiJhEfXZS0V nH9QJB3xGYjtR9kgRxuyt kwdG5hVdt+DJC6QUS8XA7 6BN59O7SiEjgt dGFibGU+PHRhYmxlIHdpZ HRoPScxMDAlJyBzdHlsZT 9qWq8oGTExKNErvXbxeKA qScRnu9qjFSAi ZTs (more content not included)... [facility] Progress Note - Nurseon 05-22 Progress Note - Nurse Pre-op call done, instructed to arrive @ 0600 on 06-21-21, NPO after midnight-verbalized understanding. [Electronically Signed on: 06/18/2021 09:26 EDT] Ayah Gracia RN [Verified on: 06/18/2021 09:26 EDT] Ayah Gracia RN [facility] 2018 Novel Coronavirus (CoVI D-19), BART LCon 06-17-2021 SARS-CoV-2 (COVID-19) RNA BART+probe Ql (Unsp spec) Not detected Invalid Interpretation Code Not Detected [facility] Comment on above: Order Comment: [id number] Result Comment: This nucleic acid amplification test was developed and its performance characteristics determined by [employer]. Nucleic acid amplification tests include RT- PCR [...] detected) result in this assay. Performed At: [address] [id number] Suzanne Durham PhD Ph:[phone] Performed By: #### 6 [id number] #### [facility] (DEFAULT) [address] [place] [address] Advance Directive Documentso n 06-07-2021 Advance Directive Documents [id number] Normal [facility] Coding Summaryon 06-07-2021 Coding Summary HTMLBase 64 QnxiyecpCEc0tRq+PGhlY WQ+XZ6YFXTfL49eeVLcjZ 2ZU8cZBI8EBJZIVDDSFA8 LYL5pdUO1RWacD9ZebcFy EsxocYViQP42VUt5GXC6m JpxZUsleM7eiAPnV1i2Su TgWZ69vB70NNkeAXIxQbG 3LjZpbjsgbWFy S4vyIxQerMRhIdb+PHRhY mxlIHdpZHRoPScxMDAlJy MdcTszSY3yVs3qWHJjQCL vbGxhcHNlOiBj l4ejWOEjKObbEQ4gvPejD 1YbmTJ2LIVmv7y6Rd71wQ I+LQRaAZO4oWznMZtaj39 3AfWer9joCMR3 xUJeZBwwZFV8Q76av0I5R BXsSJQrSGS6yDW7rJ3acV baffcmL3ZmjETpUhM3APP 3yGQwpB1wiVml venjkX7sCjz+K48OOG3CT HITTB0QCbg2P9NzVhmjsB I+AM94BHEbHE35rWTccYQ ux5eepBr2HcLf EQRoFOA3tBjcYQnwp4XmS QLdO78piOHhj5Y4SQTmvA zejQNiTqXqiQO7bE7oKEx fjriqd5yeupjs Jdimm3duus40yU40H80zO EllNXLzACH9ZIRrZUAfiU gvio9xjT5tSm2+WSfyk7o gm6nfbNi1ZdSz NTKwjkXbgVklSDD3b2MxK b15D3OeeLfnm1BvQzd6ru 59qHPws7F2sFG9HYqyMGM dqY7nSDeuIqD2 MDUwPyMypZ49wNRxUWsfA c8qcEzvaKedJP3nLGOtvt qyVVUhrJ4gYGZxoHDglRx cCF3cPNXhpwul m285YlAkKCA7HGCulQGkY 5IcmG1mCkHtBEZyTFMcE0 DchIImQXalZ029DYhpWbZ 6ULHdptEwQ1Ir LGNxvYsuIsM7i1F5Pd9Ic 0XfcinjMTZ6RJibRMJ6Cz I9YsFxMwO5O9DiNdk3BFX dpCnfTY1vK4Rl LAEtafuawjwkpKS7GDDcB WQygR80eGSnKUjvQb5yk5 F1a084UZKiWBIbhE31Ye0 udDogMTBwdCBU jC5shrkss7uakxjoOcDoV CEgJQj6DVf9ZZNouKprVd DnBQS3NoT2UMO0aVVpfV8 kcLqcwflwpZ5b Oyc+G18ppY6oYJM7OLR7h dcnORIefvIsTJ99JJ22Y5 RyPjwvdGFibGU+PGRpdiB syTluTG6cFqTc l4ugt5EsRCgkV7BiGYDrV GrwIew9VTSeITS8vYQ1jB 0nXLOvESaxq8L8xIX9M4T doxOduq8lf0xv MLXtTSqqT19zyRScn9B7R IAfiFA6ANYytJzaBxQvqV 93Oyc+ITCyeVlyk0KjWiz qg1zyc2femMp2 OjDcGIUuqnEqvKxmOTD5q 3VbVo10C78zJNuhKJXiEW PyMGLwFOQgnLmuih3hwK9 wIi8+PGNvbCB3 xLY4jH9yPDViCeH3LJuqS 100YbMbrHGrQkpxd3vhk3 uscXv6MoLaKKLmizDbrGo rLFQ7o3FsKq15 Q56sEOepTSZhGRXrSKSiW JHboSanjo6ciZ6uBy8+PC 5wj0cgle49cQ64fJY+PHR mBWJ5pUegXBlu XPGvzR5qQVqfNuC8PESiA wNltZ40gAAyVBqgHc3inH rbrDicKU6tVGGggqfxi71 5PdEdp8mlXIGp mUImMSbuIVV4Q80kc1B7O AFsNYYeNFA6fDZ5uD2jbF lnbjogbGVmdDsgdmVydGl fVUatZCzhK771 IHRvcDsnPlBhdGllbnQgT rMlSNs0P4DbHhy9XKLcfJ gdQH4frZIePIqcPh8rdUe nmXlbDB4oNAKa ehrne973EoThr5rhKJLtf IXaBNejWKE2R89gj6U7TB XjWWJfHNI9jSE6mM8ieTb nbjogbGVmdDsg wvVupGsoINfhCEkhD177S HRvcDsnPkJpcnRoIERhdG L8FV36SY68nHHay6X2sEO 8P7YuNQMucoof enrrdDS1ORXcWXDzjV87U j3mcZzjEh1rXIEqQSC3AD ZiqZVaT9UowL3zFlFcJHA fJFNsA8GuaFQx ULqzC849AFfmNvL3BIOvw gDhL8HdQKChdDhqRqG4z6 P6Ip1CJ7U1WF69OX01fRM ie7F9fRJ5K8Zl YLGpfibzzvitrCO0LTLjB DJeuW72Ad0hkYvxAb1pVO SoIBQ3ROBgvOUcR5PmvO1 yOiAjMDAwMDAw I4WfzFSzEYdfI895LUilX qE9RKQwqvTsB3XhPTDzzY rfHsO1j6O7Bt4KPZa9GA1 0EG33hMXfq0N2 zDA8B7LqHAEbdefjqzexo EK4FWIvTTUjhN29Gl9olV iuLc4bSKVrOUR7BXTupLF tW0LxxI1hAeRe LDPpBNBiU6EuoITyZKpjJ 883ZCnqRwN1KRCwfjPxL1 RvFAAzyRfaKpW7x4T1Dk3 ZAOYgJB62FBB4 bXK7LL33ZJ13U8GnOijie GFibGU+PHRhYmxlIHdpZH RoPScxMDAlJyBzdHlsZT0 rHt7dCPMzZVEo sBqgrHHbJsXmn8lcCMMjO AmyAP3ofZcpK3PnaFX4TI Kil0l3Zq37B83tK6BuwKK +MTKqtCF2dWW1 vJ0bQfOgVcU4IIlqV335J jSoxBHwMbveu9ddc5qjfR g3VxZ3NYGydnLxoDpeIPC 8r3LkXe01K06n IHdpZHRoPSIxNSUiIHZhb Jlyqq9klS6aFj8+PGNvbC G4xCY1zE1vHeYqTiX3MVs vY200RiSdvLIx Qjulv1ghg7uexOg9ZdXyC FZtrcWshLcwHMN6w7UfMn 96O0OnxMuvc7DuQnz2uv2 0eTOec8D8wSZ8 K4QuQOQdsotqcVKwoPqfA U3vSVMqzxafWWFwpY8kTY ZjM7k3MeGuMfF3QTtpN1W keyJ4ZJTmjJWs GMgcKTZ3C09rz1J1BDHoM EUpQIS6sAT2iP5dtUiieb ogbGVmdDsgdmVydGljYWw bSCzbV892VHEq tZugSQPbzN9mKJHlhBPlb PulJB8fKFNygjwkXhDDZn NqUItTWTLTVZP1A6BuJfl 8AJOlsDsxCO9b zJUrRZozRn4cyTynlHrbG Q2wQDRbogdoLVWfzT8gUD ArxEGztFnlQH3fZPKomcg nb653ImZuGOX5 PGYoxLBjI1XsgN6yJaIxD RLeMPXyY0AjeGFdXOwoL7 63TBliDeY7GPQlmvNdS7X sLWFsaWduOiB0 i0F9Eh8yXs8tUD7yXGD3I N59IO27vMFtp0L3kGK0K2 BgHZVakwvccthvjES8EKM nUZQhfC42jIQb ABodHt8hh7T0a867OFVnF GCwoW34Zu3bvDtqQDOrwW PHlO9uoqcqp7xywdgiQkU jLHYuAUn3TNr7 EWKtqBhaGtItMUH9WvQ4Y ZK2kEOrfL0efYplqxuvlN 9wOyc+IZCbBDTqwyU3B2L fAgl7UDIpyQxu AT8nzFKzGYjiRp7tyIeab KnwZK7oUWZgpxnbCGGjwG 6dHZRpfZAkgLopQT6fQOE cpytov351QdBl VIW2XBXcxZVvJ2KwcU2sQ oSxJFFkQPWcB6XukHKaLF nsX505HFtnOeO2TMYayhM uD7YwBMOhkCfi YwC6s5Y3Ro3UHLsUIS12Z X10aNBdd1L4iPQ9H1RoFP RreloetqpkqBR3LSMnIXK vqM08mQAdYZjt Gj7he7A9x575PDObPIQgb E36Xw4puUwtXMTdmDUCrY 0juzahl9isedmgOjMtHVC kYPe0YVx3XCId nElvJsUpFDB9LsJ2AMZ8g HElqS7lyTbcpktglF9hFv c+W0L4B1InJltccDJ+PC9 2NLRgWW10iXPg rAWue3xifFa6OkBdZHEiR FH6vArfERwoy1WuEQBsV2 4kiWXcf3A7CWPfnYverYM aHiDeoMZ7tO4f CDbytddmc2awllgbGkfrs 5vyny06lN22W48rOCbaCP RoPSIzMCUiIHZhbGlnbj0 erJ7cGh0+PGNv mAO7dUD0qL9bQsOpXeJ4K WijO160BoIdiIFeVtqcd4 htb4finVm1WpCmMMAogpO hzCitNMV2u4Gw Lp52M12iRKsoBYPlUKIsR XMmPWStcNxfgj3ccO0cEw 8+LJ2oa7huju73zF22oTQ +ACQpPUE4uMvu WGjbBRRyfL2nFFsaSqR7O BHvBjKefH56gZXpLJifXw 7leNoxzDfsTZ2hLIBgwyh uj268XeFvm9km XTUhbXClDYcqDDL7S20tb 3N1JNAtKEBvQAI6jVB8yC 1hbGlnbjogbGVmdDsgdmV ydGljYWwtYWxp Q521SVYzzXphCrPzqZIzO 6cjgpHGMZ5bGrqyaME+PH OiGMY1xWzhHSbbFQFlrV9 rDWAnS2t4KzOj UyU6JEmpL9YkqjA5DWLae AGuFQFadJZMxX7rnugnp7 wnhvypTzTjSFCsNLt6BRk 0LWFsaWduOiBs YEQ7BoN4ZEI8vRKslC9fy KwgdxeisR6tPqq+RklOOj wvdGQ+QFYlOHN1hRuyJZh aHUMkoU4nSLKe T6j6JdHzUsS7ADhwH6Hkv iU7JGRojHVjBRRnhKIVkD 8kcahdb3setrcwNwSeCKK oOXh2JIg6HLUm oOlcOcFhTGW4FuL1LLI8y SRpmJ7xaGyxudxnmW3oLj c+TVJOOjwvdGQ+PHRkIHN 0eWxlPSdwYWRk hI7cPBToZ6t5XoJzZuO0Q YpvW4CegvI4OGEisPGsYZ DvrMVFpK8riockm2xriap gIzAwMDAwMDt0 PKd0GZVfvXlaOuGrGSH3Z dD4MME3nYQqnC3qqDacvm apkI8bVkf+HBI5NIH0LD9 3MQ66M0TtTbys dGFibGU+PHRhYmxlIHdpZ HRoPScxMDAlJyBzdHlsZT 8aFz8pXUWvOSSlkZighKW lEdGlz7peEQMm ZTs (more content not included)... [facility] Progress Note - Nurseon - Progress Note - Nurse Chart reviewed by Dr. Fullam and no new orders received. [Electronically Signed on: 06/07/2021 15:13 EDT] Jourdan KENIsabela [Verified on: 06/07/2021 15:13 EDT] Jourdan KENIsabela [facility] Provider Orderson 06-07-2021 Provider Orders [id number] [facility] C MRSA Screenon 06-05-2021 C MRSA Screen Negative [facility] Comment on above: Performed By: #### 1 [id number] ####[facility] (DEFAULT)[address] [place] [address] .Auto Diff 1on 06-04-2021 Auto [place] % 13 % High 1-12 [facility] Comment on above: Performed By: #### 1 [id number], [id number], [id number] ####[facility] (DEFAULT)[address] [place] [address] Baso Abs# 0.0 x10 Normal 0.0-0.2 [facility] Comment on above: Performed By: #### 1 [id number], [id number], [id number] ####[facility] (DEFAULT)[address] [place] [address] Basophils/100 WBC (Bld) 0.8 % Normal 0.2-2.0 [facility] Comment on above: Performed By: #### 1 [id number], [id number], [id number] ####[facility] (DEFAULT)[address] [place] [address] Eos Abs# 0.1 x10 Normal 0.0-0.4 [facility] Comment on above: Performed By: #### 1 [id number], [id number], [id number] ####[facility] (DEFAULT)[address] [place] [address] 60098 Eosinophils/100 WBC (Bld) 2.3 % Normal 0.9-4.0 [facility] Comment on above: Performed By: #### 1 [id number], [id number], [id number] ####[facility] (DEFAULT)[address] [place] [address] 14846 Lymph Abs# 1.4 x10 Normal 1.3-2.9 [facility] Comment on above: Performed By: #### 1 [id number], [id number], [id number] ####[facility] (DEFAULT)[address] [place] [address] 70233 Lymphocytes/100 WBC (Bld) 28 % Normal 14-48 [facility] Comment on above: Performed By: #### 1 [id number], [id number], [id number] ####[facility] (DEFAULT)[address] [place] [address] [place] Abs# 0.6 x10 Normal 0.0-0.8 [facility] Comment on above: Performed By: #### 1 [id number], [id number], [id number] ####[facility] (DEFAULT)[address] [place] [address] 86483 Neut Abs# 2.7 x10 Normal 1.5-9.2 [facility] Comment on above: Performed By: #### 1 [id number], [id number], [id number] ####[facility] (DEFAULT)[address] [place] [address] 17513 Neutrophils/100 WBC (Bld) 55 % Normal 44-88 [facility] Comment on above: Performed By: #### 1 [id number], [id number], [id number] ####[facility] (DEFAULT)[address] [place] [address] BMP Standardon 06-04-2021 eGFR Non AA 58 mL/min/1.73m2 Invalid Interpretation Code [facility] Comment on above: Performed By: #### 1 [id number], [id number], [id number] ####[facility] (DEFAULT)[address] [place] [address] eGFR AA >60 Invalid Interpretation Code [facility] Comment on above: Result Comment: Supervisor [employer] martha Kidney disease could be indicated at eGFRs of less than 60 ml/min/1.73m2. Kidney Failure is indicated at less than 15 ml/min/1.73m2 Performed By: #### 1 [id number], [id number], [id number] ####[facility] (DEFAULT)[address] [place] [address] 02337 Anion gap [Moles/Vol] 18.0 mmol/L Normal 5.0-19.0 [facility] Comment on above: Performed By: #### 1 [id number], [id number], [id number] ####[facility] (DEFAULT)[address] [place] [address] 41764 Calcium [Mass/Vol] 9.8 mg/dL Normal 8.9-10.3 [facility] Comment on above: Performed By: #### 1 [id number], [id number], [id number] ####[facility] (DEFAULT)[address] [place] [address] 15757 Chloride [Moles/Vol] 96 mmol/L Low 101-111 [facility] Comment on above: Performed By: #### 1 [id number], [id number], [id number] ####[facility] (DEFAULT)[address] [place] [address] 15801 CO2 [Moles/Vol] 27 mmol/L Normal 21-32 [facility] Comment on above: Performed By: #### 1 [id number], [id number], [id number] ####[facility] (DEFAULT)[address] [place] [address] 13836 Creatinine [Mass/Vol] 1.19 mg/dL Normal 0.90-1.30 [facility] Comment on above: Performed By: #### 1 [id number], [id number], 5970974 ####[facility] (DEFAULT)[address] [place] [address] 82376 Glucose [Mass/Vol] 93.0 mg/dL Normal 74.0-118.0 [facility] Comment on above: Performed By: #### 1 [id number], [id number], 4851859 ####[facility] (DEFAULT)[address] [place] [address] 83287 Osmolality 277 mOsm/L Invalid Interpretation Code [facility] Comment on above: Performed By: #### 1 [id number], [id number], [id number] ####[facility] (DEFAULT)[address] [place] [address] 37894 Potassium [Moles/Vol] 4.5 mmol/L Normal 3.6-5.1 [facility] Comment on above: Performed By: #### 1 [id number], [id number], [id number] ####[facility] (DEFAULT)[address] [place] [address] Sodium [Moles/Vol] 136.0 mmol/L Normal 136.0-144.0 [facility] Comment on above: Performed By: #### 1 [id number], [id number], [id number] ####[facility] (DEFAULT)[address] [place] [address] Urea nitrogen [Mass/Vol] 27 mg/dL High 8-26 [facility] Comment on above: Performed By: #### 1 [id number], [id number], [id number] ####[facility] (DEFAULT)[address] [place] [address] Urea nitrogen/Creatinine [Mass ratio] 23.0 mg/mg High 4.6-16.2 [facility] Comment on above: Performed By: #### 1 [id number], [id number], 6355107 ####[facility] (DEFAULT)[address] [place] [address] CBC w/ Auto Diffon 2 Erythrocyte distribution width (RBC) [Ratio] 12.4 % Normal 11.5-15.0 [facility] Comment on above: Performed By: #### 1 [id number], [id number], 8323850 #### [facility] (DEFAULT) [address] [place] [address] Hematocrit (Bld) [Volume fraction] 45.9 % Normal 34.8-51.9 [facility] Comment on above: Performed By: #### 1 [id number], [id number], 1308312 #### [facility] (DEFAULT) [address] [place] [address] 86989 Hemoglobin (Bld) [Mass/Vol] 14.8 g/dL Normal 11.8-17.7 [facility] Comment on above: Performed By: #### 1 [id number], [id number], 7604556 #### [facility] (DEFAULT) [address] [place] [address] 68926 Instr WBC 4.8 x10 Invalid Interpretation Code [facility] Comment on above: Performed By: #### 1 [id number], [id number], [id number] #### [facility] (DEFAULT) [address] [place] [address] 70219 Man Diff? Auto Normal [facility] Comment on above: Performed By: #### 1 [id number], [id number], [id number] #### [facility] (DEFAULT) [address] [place] [address] 59518 MCH (RBC) [Entitic mass] 32 pg Normal 24-34 [facility] Comment on above: Performed By: #### 1 [id number], [id number], 8298914 #### [facility] (DEFAULT) [address] [place] [address] 03438 MCHC (RBC) [Mass/Vol] 32 g/dL Normal 26-37 [facility] Comment on above: Performed By: #### 1 [id number], [id number], 6611093 #### [facility] (DEFAULT) [address] [place] [address] 50072 MCV (RBC) [Entitic vol] 98 fL Normal 81-100 [facility] Comment on above: Performed By: #### 1 [id number], [id number], [id number] #### [facility] (DEFAULT) [address] [place] [address] 32947 Platelet 221 x10 Normal 138-427 [facility] Comment on above: Performed By: #### 1 [id number], [id number], [id number] #### [facility] (DEFAULT) [address] [place] [address] 32865 Platelet mean volume (Bld) [Entitic vol] 8.6 fL Normal 6.3-10.2 [facility] Comment on above: Performed By: #### 1 [id number], [id number], [id number] #### [facility] (DEFAULT) [address] [place] [address] 90231 RBC 4.68 x10 Normal 3.70-5.30 [facility] Comment on above: Performed By: #### 1 [id number], [id number], [id number] #### [facility] (DEFAULT) [address] [place] [address] 33509 WBC 4.8 x10 Normal 3.5-10.5 [facility] Comment on above: Performed By: #### 1 [id number], [id number], [id number] #### [facility] (DEFAULT) [address] [place] [address] 76355 UA w Culture if Ind Standard on 06-04-2021 Breakpoint UA Normal [facility] Comment on above: Performed By: #### 1 [id number] ####[facility] (DEFAULT)[address] [place] [address] Color (U) Yellow Normal [facility] Comment on above: Performed By: #### 1 [id number] ####[facility] (DEFAULT)[address] [place] [address] 43482 Culture? No [facility] Comment on above: Performed By: #### 1 [id number] ####[facility] (DEFAULT)[address] [place] [address] Glucose (U) [Mass/Vol] Negative Normal [facility] Comment on above: Performed By: #### 1 [id number] ####[facility] (DEFAULT)[address] [place] [address] 38187 Ketones Ql (U) Negative Normal [facility] Comment on above: Performed By: #### 1 [id number] ####[facility] (DEFAULT)[address] [place] [address] Micro? Not Indicated [facility] Comment on above: Performed By: #### 1 [id number] ####[facility] (DEFAULT)[address] [place] [address] 66225 UA Bilirubin Negative Normal [facility] Comment on above: Performed By: #### 1 [id number] ####[facility] (DEFAULT)[address] [place] [address] 39367 UA Blood Negative Normal NEGATIVE [facility] Comment on above: Performed By: #### 1 [id number] ####[facility] (DEFAULT)[address] [place] [address] UA Clarity CLEAR Normal CLEAR [facility] Comment on above: Performed By: #### 1 [id number] ####[facility] (DEFAULT)[address] [place] [address] 89298 UA Leuk Est Negative Normal NEGATIVE [facility] Comment on above: Performed By: #### 1 [id number] ####[facility] (DEFAULT)[address] [place] [address] 58386 UA Nitrite Negative Normal NEGATIVE [facility] Comment on above: Performed By: #### 1 [id number] ####[facility] (DEFAULT)[address] [place] [address] 51512 UA pH 6.0 Normal 5-8 [facility] Comment on above: Performed By: #### 1 [id number] ####[facility] (DEFAULT)[address] [place] [address] 51960 UA Protein Negative Normal [facility] Comment on above: Performed By: #### 1 [id number] ####[facility] (DEFAULT)[address] [place] [address] 83309 UA Spec Grav 1.020 Normal 1.001-1.035 [facility] Comment on above: Performed By: #### 1 [id number] ####[facility] (DEFAULT)[address] [place] [address] 24360 UA Urobilinogen 0.2 mg/dL Normal 0.2-1.0 [facility] Comment on above: Performed By: #### 1 [id number] ####[facility] (DEFAULT)[address] [place] [address] 45914 Urine Source Clean Catch Normal [facility] Comment on above: Performed By: #### 1 [id number] ####[facility] [place] [address] Vital Signs Date Time Vital Sign Value Performing Clinician Aminata ndiaye 01-09-2024 08:28-0500 Body height 175.3 cm Chata Hemmer PA Work Phone: [facility] 01-09-2024 08:28-0500 Body mass index (BMI) [Ratio] 24.04 kg/m2 Chata Hemmer PA Work Phone: [facility] 01-09-2024 08:28-0500 Body weight 73.85 kg Chata Hemmer PA Work Phone: [facility] 01-09-2024 08:28-0500 Diastolic blood pressure 72 mm[Hg] Chata Hemmer PA Work Phone: [facility] 01-09-2024 08:28-0500 Heart rate 104 /min Chata Hemmer PA Work Phone: [facility] 01-09-2024 08:28-0500 Respiratory rate 16 /min Chata Hemmer PA Work Phone: [facility] 01-09-2024 08:28-0500 SaO2% (BldA) [Mass fraction] 92 % Chata Hemmer PA Work Phone: [facility] 01-09-2024 08:28-0500 Systolic blood pressure 100 mm[Hg] Chata Hemmer PA Work Phone: [facility] 12-26-2023 08:30-0500 Body height 175.3 cm Chata Hemmer PA Work Phone: [facility] 12-26-2023 08:30-0500 Body mass index (BMI) [Ratio] 24.54 kg/m2 Chata Hemmer PA Work Phone: [facility] 12-26-2023 08:30-0500 Body weight 75.39 kg Chata Hemmer PA Work Phone: [facility] 12-26-2023 08:30-0500 Diastolic blood pressure 68 mm[Hg] Chata Hemmer PA Work Phone: [facility] 12-26-2023 08:30-0500 Heart rate 68 /min Chata Jarvis PA Work Phone: [facility] 12-26-2023 08:30-0500 Respiratory rate 16 /min Chata Jarvis PA Work Phone: [facility] 12-26-2023 08:30-0500 SaO2% (BldA) [Mass fraction] 91 % Chata Jarvis PA Work Phone: [facility] 12-26-2023 08:30-0500 Systolic blood pressure 122 mm[Hg] Chata Jarvis PA Work Phone: [facility] Encounters Encounter Date Encounter Type Care Provider Facility Start: 01-16-2024 End: 01-16-2024 Bamboo flowsheet Lita Silvestre [employer] Work Phone: [facility] Start: 01-16-2024 End: 01-16-2024 Bamboo flowsheet Lita Silvestre [employer] OFFICE AGENT Work Phone: [facility] Start: 01-09-2024 End: 01-09-2024 Bamboo flowsheet Chata Jarvis PA Work Phone: [facility] Start: 01-09-2024 End: 01-09-2024 Bamboo flowsheet Chata Jarvis PA Work Phone: [facility] Start: 01-09-2024 End: 01-09-2024 Office outpatient visit 15 minutes Chata Jarvis PA Work Phone: [facility] Comment on above: Pressure ulcer of co ccygeal region, stage 2 (CMS/HCC) (Primary Dx) Start: 01-09-2024 End: 01-09-2024 ambulatory CHATA JARVIS Not Available Start: 01-01-2024 End: 01-01-2024 ambulatory Alberto Pacheco MD Facility:[facility] Start: 12-26-2023 End: 12-26-2023 Bamboo flowsheet Chata Jarvis PA Work Phone: [facility] Start: 12-26-2023 End: 12-26-2023 Bamboo flowsheet Chata Jarvis PA Work Phone: [facility] Start: 12-26-2023 End: 12-26-2023 Office outpatient visit 15 minutes Chata COLIN Work Phone: [facility] Comment on above: Pressure ulcer of co ccygeal region, stage 2 (CMS/HCC) (Primary Dx); Need for vaccination Start: 12-26-2023 End: 12-26-2023 ambulatory CHATA JARVIS Not Available Start: 12-25-2023 End: 12-26-2023 Telephone encounter Enrique Omar Sangeeta DO Work Phone: [facility] Comment on above: question Start: 12-25-2023 End: 12-25-2023 ambulatory Alberto Pacheco MD Facility:[facility] Start: 12-19-2023 End: 12-19-2023 Bamboo flowsheet Lita Silvestre NP Work Phone: [facility] Start: 12-19-2023 End: 12-19-2023 Bamboo flowsheet Lita Silvestre [employer] OFFICE AGENT Work Phone: [facility] Start: 12-19-2023 End: 12-19-2023 Office outpatient visit 15 minutes Lita Silvestre [employer] OFFICE AGENT Work Phone: [facility] Comment on above: Closed fracture of m ultiple pubic rami, right, with routine healing, subsequent encounter (Primary Dx); Closed nondisplaced fracture of medial wall of left acetabulum with routine healing, subsequent encounter; Left-sided low back pain with left-sided sciatica, unspecified chronicity Start: 12-19-2023 End: 12-19-2023 ambulatory LITA SILVESTRE Not Available Start: 11-23-2023 End: 11-23-2023 Bamboo flowsheet Lita Silvestre [employer] OFFICE AGENT Work Phone: [facility] Start: 11-23-2023 End: 10-03-2024 Bamboo flowsheet Lita Silvestre BOX OFFICE AGENT Work Phone: [facility] Start: 11-23-2023 End: 11-23-2023 Office outpatient visit 10 minutes Lita Silvestre [employer]OX OFFICE AGENT Work Phone: [facility] Comment on above: Closed fracture of m ultiple pubic rami, right, with routine healing, subsequent encounter; Closed nondisplaced fracture of medial wall of left acetabulum with routine healing, subsequent encounter Start: 11-23-2023 End: 11-23-2023 ambulatory LITA SILVESTRE Not Available Start: 11-09-2023 End: 11-09-2023 ambulatory LITA SILVESTRE Not Available Start: 11-06-2023 End: 11-07-2023 Emergency department patient visit MAIA Jimy [facility] Start: 11-06-2023 End: 11-06-2023 Emergency department patient visit JERMAIN MENCHACA [facility] Start: 10-30-2023 End: 10-30-2023 ambulatory JERMAIN MENCHACA Not Available Start: 08-28-2023 End: 08-28-2023 ambulatory Alberto Pacheco MD Facility:[facility] Start: 08-21-2023 End: 08-21-2023 ambulatory CHATA JARVIS Not Available Start: 08-14-2023 End: 08-14-2023 ambulatory Alberto Pacheco MD Facility:[facility] Start: 08-07-2023 End: 08-07-2023 ambulatory Alberto Pacheco MD Facility: [facility] Start: 08-01-2023 End: 08-01-2023 ambulatory ENRIQUE RUTHERFORD Not Available Start: 07-27-2023 End: 07-27-2023 ambulatory ENRIQUE RUTHERFORD Not Available Start: 07-11-2023 End: 07-11-2023 ambulatory ENRIQUE RUTHERFORD Not Available Start: 06-13-2023 End: 06-13-2023 ambulatory JERMAIN MENCHACA Not Available Start: 06-06-2023 End: 06-06-2023 ambulatory ENRIQUE RUTHERFORD Not Available Start: 06-01-2023 End: 06-03-2023 Emergency department patient visit AGUSTIN GARCIA [facility] Start: 06-01-2023 End: 06-02-2023 ambulatory JERMAIN MENCHACA [facility] Start: 05-04-2023 End: 05-04-2023 ambulatory ABEL SOLIS Not Available Start: 04-20-2023 End: 04-20-2023 ambulatory ABEL SOLIS Not Available Start: 04-10-2023 End: 04-10-2023 ambulatory JERMAIN MENCHACA Not Available Start: 10-11-2022 End: 01-09-2024 Assay of hemosiderin, chioma Silvestre NP Work Phone: [facility] Start: 12-17-2021 End: 12-17-[address] JREMAIN MENCHACA Facility: Procedures Date Procedure Procedure Detail Performing Clinician Start: 12-19-2023 Radiologic examinati on pelvis 1/2 views Lita Silvestre NP Work Phone: Start: 11-23-2023 Radiologic examinati on pelvis 1/2 views Lita Silvestre NP Work Phone: Plan of Treatment Date Care Activity Detail Author Start: 10-29-2024 Medicare Annual Wellness (AWV) Medicare Annual Wellness (AWV) [facility] Start: 04-29-2024 End: 04-29-2024 Patient encounter procedure 04/29/2024 9:45 AM EDT Office Visit [facility] [address] [facility] [address] [place] [phone] Jermain Menchaca MD [address] [place] [address] [place] [address] [facility] Start: 01-16-2024 End: 01-16-2024 Patient encounter procedure 01/16/2024 10:15 AM EST Office Visit [facility] [address] [place] [address] [place] [address] Lita Silvestre, [place] [address] [facility] [place] [address] [facility] Start: 01-09-2024 End: 01-09-2024 Patient encounter procedure [facility] Comment on above: Arrived Start: 12-26-2023 End: 12-26-2023 Patient encounter procedure 12/26/2023 8:30 AM EST Office Visit [facility] [address] [facility] [address] [place] [phone] Chata Jarvis PA [address] [place] [address] [place] [address] Arrived [facility] Comment on above: Arrived Start: 12-19-2023 End: 12-19-2023 Patient encounter procedure [facility] Comment on above: Closed fracture of m ultiple pubic rami, right, with routine healing, subsequent encounter; Closed nondisplaced fracture of medial wall of left acetabulum with routine healing, subsequent encounter Start: 12-07-2023 End: 12-07-2023 Patient encounter procedure 12/07/2023 9:30 AM EDT Office Visit [facility] [address] [facility] [place] [phone] Lita Silvestre, [employer]OX OFFICE AGENT [address] [place] [address] [facility] Start: 11-23-2023 End: 11-23-2023 Patient encounter procedure 11/23/2023 2:00 PM EDT Office Visit [facility] [address] [place] [phone] Lita Silvestre, CH[place] [address] [facility] [place] [address] Arrived [facility] Comment on above: Arrived Start: 10-22-2023 Influenza vaccination Influenza Vacc ine (#1) [facility] Immunizations Immunization Date Immunization Notes Care Provider [facility] 12-26-2023 Influenza, High-dose Seasonal, Quadrivalent, Preservative Free Chata COLIN Work Phone: [facility] 12-22-2022 influenza, high dose seasonal, preservative-free Lita Silvestre [employer]ENT Work Phone: [facility] 12-22-2022 influenza virus vacc ine, unspecified formulation Lita Silvestre [employer] OFFICE AGENT Work Phone: [facility] 12-18-2021 Influenza, High-dose Seasonal, Quadrivalent, Preservative Free Lita Silvestre BOX OFFICE AGENT Work Phone: [facility] 12-18-2021 Moderna Bivalent Silver ster Vaccination Lita Renny [employer]OX OFFICE AGENT Work Phone: [facility] 12-01-2020 Influenza, High-dose Seasonal, Quadrivalent, Preservative Free Lita Silvestre [employer] OFFICE AGENT Work Phone: [facility] 12-16-2019 influenza, injectabl e, quadrivalent, preservative free Lita Silvestre BOX OFFICE AGENT Work Phone: [facility] 12-10-2018 influenza, injectabl e, quadrivalent, preservative free Lita Silvestre BOX OFFICE AGENT Work Phone: [facility] 12-20-2017 influenza, high dose seasonal, preservative-free Lita Silvestre BOX OFFICE AGENT Work Phone: [facility] 12-11-2017 influenza, injectabl e, quadrivalent, preservative free Lita Silvestre BOX OFFICE AGENT Work Phone: [facility] 11-01-2016 influenza, high dose seasonal, preservative-free Lita Silvestre BOX OFFICE AGENT Work Phone: [facility] 11-01-2016 pneumococcal conjuga te vaccine, 13 valent Lita Silvestre BOX OFFICE AGENT Work Phone: [facility] 11-21-2015 pneumococcal polysaccharide vaccine, 23 valent Lita Silvestre B[employer] OFFICE AGENT Work Phone: [facility] 11-19-2015 influenza, injectabl e, madin abhijit canine kidney, preservative free Lita Silvestre BOX OFFICE AGENT Work Phone: [facility] 10-29-2015 influenza virus vacc ine, unspecified formulation Lita Silvestre BOX OFFICE AGENT Work Phone: [facility] 10-29-2015 influenza, seasonal, injectable, preservative free Lita Silvestre B[employer] OFFICE AGENT Work Phone: [facility] 01-03-2015 influenza, high dose seasonal, preservative-free Lita Renny BOX OFFICE AGENT Work Phone: [facility] [facility] 04-14-2014 pneumococcal vaccine , unspecified formulation Lita Renny BOX OFFICE AGENT Work Phone: [facility] 11-14-2012 influenza virus vacc ine, whole virus Lita Renny BOX OFFICE AGENT Work Phone: [facility] 11-22-2011 influenza virus vacc ine, whole virus Lita Silvestre BOX OFFICE AGENT Work Phone: [facility] 11-17-2010 influenza virus vacc ine, whole virus Lita Silvestre BOX OFFICE AGENT Work Phone: [facility] 12-02-2009 influenza virus vacc ine, whole virus Lita Silvestre BOX OFFICE AGENT Work Phone: [facility] 11-26-2008 influenza virus vacc ine, whole virus Lita Silvestre BOX OFFICE AGENT Work Phone: [facility] 12-06-2006 influenza virus vacc ine, whole virus Lita Renny BOX OFFICE AGENT Work Phone: [facility] Payers Date Payer Category Payer Private Health Insurance [employer] Ut mber [id number] 2022 Unknown [id number] 2001 Medicare [id number] 1959 Medicare [id number] 1959 Unknown [id number] 1936 Unknown [id number] 2.16.840.1.486437.3.579.2 .593 1936 Unknown [id number] 2.16.840.1.154739.3.579.2 .1285 1936 Unknown [id number] 2.16.840.1.780182.3.579.2 .1285 1936 Unknown [id number] 2.16.840.1.571078.3.579.2 .1285 1936 Unknown [id number] 2.16.840.1.424906.3.579.2 .1285 1936 Unknown [id number] 2.16.840.1.866235.3.579.2 .1285 1936 Unknown [id number] 2.16.840.1.767143.3.579.2 .1285 1936 Unknown [id number] 2.16.840.1.085143.3.579.2 .1936 Unknown [id number] 2.16.840.1.816928.3.579.2 .1936 Unknown [id number] 2.16.840.1.126370.3.579.2 .1936 Unknown [id number] 2.16.840.1.848095.3.579.2 .1936 Unknown [id number] 2.16.840.1.897785.3.579.2 .1936 Unknown [id number] 2.16.840.1.969006.3.579.2 .1258 1936 Unknown [id number] 2.16.840.1.403568.3.579.2 .1258 1936 Unknown [id number] 2.16.840.1.104092.3.579.2 .1258 1936 Unknown [id number] 2.16.840.1.317690.3.579.2 .1258 1936 Unknown [id number] 2.16.840.1.820366.3.579.2 .1258 1936 Unknown [id number] 2.16.840.1.471892.3.579.2 .1258 1936 Unknown [id number] 2.16.840.1.951777.3.579.2 .1258 1936 Unknown [id number] 2.16.840.1.542016.3.579.2 .1258 1936 Unknown [id number] 2.16.840.1.731715.3.579.2 .1258 1936 Unknown [id number] 2.16.840.1.201436.3.579.2 .1258 1936 Unknown [id number] 2.16840.1.920857.3.579.2 .1258 1936 Unknown [id number] 2.16840.1.275653.3.579.2 .1258 1936 Unknown [id number] 2.16.840.1.464697.3.579.2 .1258 1936 Unknown [id number] 2.16.840.1.317146.3.579.2 .1258 1936 Unknown [id number] 2.16840.1.315047.3.579.2 .1258 1936 Unknown [id number] 2.16840.1.178680.3.579.2 .1258 1936 Unknown [id number] 2.16840.1.414933.3.579.2 .1258 1936 Unknown [id number] 2.16840.1.619280.3.579.2 .1259 Social History Date Type Detail Facility Start: 08-21-2023 Tobacco smoking stat [facility] Ex-smoker [facility] Work Phone: End: 02-20-1969 History of tobacco use Current smoker [facility] End: 02-20-1969 History of tobacco use Cigarette Smoker [facility] Start: 08-21-2023 Tobacco use and exposure Smokeless tobacco non-user [facility] Start: 10-30-2023 End: 01-09-2024 Alcoholic beverage intake Current drinker of alcohol (finding) [facility] Start: 10-11-2022 End: 10-30-2023 History of Social function [facility] Start: 10-11-2022 End: 10-30-2023 Tobacco use panel [facility] Start: 12-01-2022 Alcohol Comment 1-2 drinks mon thly or less [facility] Start: 1935 Sex assigned at Not on file N [facility] Clinical Notes 06-21-2021 to 01-09-2024 CRISTI Puri - 01/09/2024 8:30 AM CRISTI Kimble - 12/26/2023 8:30 AM ESTTelephone Encounter - Lita Silvestre NP - 12/25/2023 10:57 AM Quinten Silvestre NP - 12/19/2023 9:15 AM EDT Note Date & Type Note Facility 01-09-2024 History of Present illness Narrative Subjective Patient ID: Enrique Mike is a 88 y.o. male who presents for pressure ulcer. Enrique is present today for follow up pressure ulcer coccyx. At last o/v he was started on wound dressing Medihoney gel and he feels the left side is improving but the right side has not improved. He has been putting the Medihoney on twice a day. States the area constantino. States the epidural injections in his back did help. He is having the next set of shots on Monday. States Pain Management is telling him to sit, and we are telling him to avoid sitting too long due to wound. Current Outpatient Medications on File Prior to Visit Medication Sig Dispense Refill acetaminophen (Tylenol) 325 MG tablet Take 325 mg by mouth every 6 (six) hours if needed for mild pain. baclofen (Lioresal) 10 MG tablet Take 1 tablet (10 mg) by mouth 2 (two) times a day as needed for muscle spasms. 60 tablet 2 co-enzyme Q-10 30 MG capsule Take 100 mg by mouth in the morning. finasteride (Proscar) 5 MG tablet Take 5 mg by mouth in the morning. HYDROcodone-acetaminophen ([place]) 5-325 MG tablet Take 1 tablet by mouth every 6 (six) hours if needed levothyroxine (Synthroid, Levoxyl) 100 MCG tablet TAKE 1 TABLET BY MOUTH DAILY; hold on sundays 90 tablet 3 lisinopril 10 MG tablet Take 1 tablet (10 mg) by mouth Daily 100 tablet 3 lovastatin (Mevacor) 20 MG tablet TAKE 1 TABLET BY MOUTH with evening meal 100 tablet 3 meloxicam (Mobic) 15 MG tablet TAKE 1 TABLET BY MOUTH IN THE MORNING WITH FOOD 100 tablet 3 Nutritional Supplements (PROSTA JENISE PO) Take by mouth 2 (two) times a day. tamsulosin (Flomax) 0.4 MG 24 hr capsule TAKE 1 CAPSULE BY MOUTH IN THE MORNING 100 capsule 3 traMADol (Ultram) 50 MG tablet Take 50 mg by mouth every 6 (six) hours if needed for severe pain Wound Dressings (Medihoney wound/burn) gel APPLY TO THE AFFECTED AREA(S) TOPICALLY DAILY FOR 14 DAYS 45 mL 2 No current facility-administered medications on file prior to visit. I have reviewed and reconciled the history and medication list with the patient today. No Known Allergies Social History Tobacco Use Smoking status: Former Current packs/day: 0.00 Types: Cigarettes Quit date: 1970 Years since quittin.9 Smokeless tobacco: Never Vaping Use Vaping status: Never Used Substance Use Topics Alcohol use: Yes Comment: 1-2 drinks monthly or less Family History Problem Relation Name Age of Onset Heart disease Mother Heart disease Father Past Medical History: Diagnosis Date Acquired hammer toe B/L median nerve mod severe by EMG mild Cr radiculopathy 07/19/2018 Goiter (CMS/HCC) Hammer toes, bilateral History of being hospitalized 12/10/2021 Urinary Retention and constipation History of skin cancer Hyperlipemia (CMS/HCC) Hyperlipidemia (CMS/HCC) Hypertension, unspecified type (CMS/HCC) Macular degeneration disease Overlapping toe Overlapping little toe Pneumothorax, closed Rotator cuff syndrome Rotator cuff tear, left Rotator cuff tear, right Urinary retention 12/10/2021 [facility] for urinary retention UTI [facility]ENT Past Surgical History: Procedure Laterality Date BACK SURGERY BIOPSY 04/2021 biopsy forehead (basal cell) CATARACT EXTRACTION CT GUIDED TRANSVAGINAL TRANSRECTAL FLUID DRAIN 06/01/2023 CT GUIDED TRANSVAGINAL TRANSRECTAL FLUID DRAIN 06/01/2023 HERNIA REPAIR LAMINECTOMY 12/01/2021 Dr. Rutherford. Decompression laminectomy L3-L4, L4-L5 OTHER SURGICAL HISTORY Procedure:Surgery;Disease:Pneumot horax OTHER SURGICAL HISTORY Right 08/08/[address] Rutherford[address] 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 Rutherford. Michael ROTATOR CUFF REPAIR Bilateral left 1997, right 2006 THYROIDECTOMY Goiter TOE SURGERY Procedure:surgical repair;Disease:Overlapping little toe Visit Vitals BP 100/72 Pulse 104 Resp 16 Ht 5' 9 Wt 162 lb 12.8 oz SpO2 92% BMI 24.04 kg/m Smoking Status Former BSA 1.9 m Review of Systems Constitutional: Negative for chills, fatigue and fever. Respiratory: Negative for cough, shortness of breath and wheezing. Cardiovascular: Negative for chest pain, palpitations and leg swelling. Gastrointestinal: Negative for abdominal pain, constipation, diarrhea, nausea and vomiting. Musculoskeletal: Positive for arthralgias, back pain and gait problem. Skin: Positive for rash. Objective Physical Exam Constitutional: General: He is not in acute distress. Appearance: Normal appearance. HENT: Head: Normocephalic and atraumatic. Right Ear: Decreased hearing noted. Left Ear: Decreased hearing noted. Ears: Comments: Wears hearing aids Eyes: General: No scleral icterus. Cardiovascular: Rate and Rhythm: Normal rate and regular rhythm. Heart sounds: No murmur heard. Pulmonary: Effort: Pulmonary effort is normal. No respiratory distress. Breath sounds: Normal breath sounds. No wheezing, rhonchi or rales. Musculoskeletal: General: No swelling. Skin: General: Skin is warm and dry. Findings: Wound present. Comments: 0.3 cm scabbed wound of left coccygeal region, erythema of bilateral coccygeal region, no purulent drainage Neurological: General: No focal deficit present. Mental Status: He is alert and oriented to person, place, and time. Gait: Gait abnormal (Antalgic, using rollator). Psychiatric: Mood and Affect: Mood normal. Behavior: Behavior normal. Assessment/Plan Diagnoses and all orders for this visit: Pressure ulcer of coccygeal region, stage 2 (CMS/HCC) Ulceration has markedly decreased in size and is now scabbed. He is doing well with Medihoney. Pt is being told by PM to sit, and our office to off load, PM is not aware of pt's wound. Encouraged him to balance his time sitting and standing. Off load as much as possible to help prevent the skin from starting to break down again. Advised of risks if the area becomes infected. He can follow up for recheck of the area as needed. He and his son voiced understanding. Follow up for Appointment As Scheduled. documented in this encounter [facility] 12-26-2023 History of Present illness Narrative Images from the original note were not included. Subjective Patient ID: Enrique Mike is a 88 y.o. male who presents for rash. Enrique is present today with son for evaluation of rash. Admits the rash on coccyx and has been there for about a month, states it is itchy and scabby , painful and can't see what it looks like so does not know what it looks like.He has been using a cream the bellows assembler prescribed (doesn't know the name of the cream) and it is not improving it just keeps the scabs soft. Seeing Ortho and Pain Management for pain following recent fall and multiple fractures. Is scheduled to have an injection in his back on Monday. Recent left rib, lumbar vertebra, pubic bone and left acetabulum fracture. Current Outpatient Medications on File Prior to Visit Medication Sig Dispense Refill acetaminophen (Tylenol) 325 MG tablet Take 325 mg by mouth every 6 (six) hours if needed for mild pain. baclofen (Lioresal) 10 MG tablet Take 1 tablet (10 mg) by mouth 2 (two) times a day as needed for muscle spasms. 60 tablet 2 co-enzyme Q-10 30 MG capsule Take 100 mg by mouth in the morning. finasteride (Proscar) 5 MG tablet Take 5 mg by mouth in the morning. HYDROcodone-acetaminophen ([place]) 5-325 MG tablet Take 1 tablet by mouth every 6 (six) hours if needed levothyroxine (Synthroid, Levoxyl) 100 MCG tablet TAKE 1 TABLET BY MOUTH DAILY; hold on sundays 90 tablet 3 lisinopril 10 MG tablet Take 1 tablet (10 mg) by mouth Daily 100 tablet 3 lovastatin (Mevacor) 20 MG tablet TAKE 1 TABLET BY MOUTH with evening meal 100 tablet 3 meloxicam (Mobic) 15 MG tablet TAKE 1 TABLET BY MOUTH IN THE MORNING WITH FOOD 100 tablet 3 Nutritional Supplements (PROSTA JENISE PO) Take by mouth 2 (two) times a day. tamsulosin (Flomax) 0.4 MG 24 hr capsule Take 1 capsule (0.4 mg) by mouth Daily 100 capsule 3 traMADol (Ultram) 50 MG tablet Take 50 mg by mouth every 6 (six) hours if needed for severe pain [DISCONTINUED] methylPREDNISolone (Medrol Dospak) 4 MG tablets Follow schedule on package instructions 21 tablet 0 No current facility-administered medications on file prior to visit. I have reviewed and reconciled the history and medication list with the patient today. No Known Allergies Social History Tobacco Use Smoking status: Former Current packs/day: 0.00 Types: Cigarettes Quit date: 1969 Years since quittin.8 Smokeless tobacco: Never Vaping Use Vaping status: Never Used Substance Use Topics Alcohol use: Yes Comment: 1-2 drinks monthly or less Family History Problem Relation Name Age of Onset Heart disease Mother Heart disease Father Past Medical History: Diagnosis Date Acquired hammer toe B/L median nerve mod severe by EMG mild Cr radiculopathy 07/19/2018 Goiter (CMS/HCC) Hammer toes, bilateral History of being hospitalized 12/10/2021 Urinary Retention and constipation History of skin cancer Hyperlipemia (CMS/HCC) Hyperlipidemia (CMS/HCC) Hypertension, unspecified type (CMS/HCC) Macular degeneration disease Overlapping toe Overlapping little toe Pneumothorax, closed Rotator cuff syndrome Rotator cuff tear, left Rotator cuff tear, right Urinary retention 12/10/2021 [facility] for urinary retention UTI [facility]ENT Past Surgical History: Procedure Laterality Date BACK SURGERY BIOPSY 04/2021 biopsy forehead (basal cell) CATARACT EXTRACTION CT GUIDED TRANSVAGINAL TRANSRECTAL FLUID DRAIN 06/01/2023 CT GUIDED TRANSVAGINAL TRANSRECTAL FLUID DRAIN 06/01/2023 HERNIA REPAIR LAMINECTOMY 12/01/2021 Dr. Rutherford. Decompression laminectomy L3-L4, L4-L5 OTHER SURGICAL HISTORY Procedure:Surgery;Disease:Pneumot horax OTHER SURGICAL HISTORY Right 08/08/[address] Rutherford[address] 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 Rutherford. Michael ROTATOR CUFF REPAIR Bilateral left 1997, right 2006 THYROIDECTOMY Goiter TOE SURGERY Procedure:surgical repair;Disease:Overlapping little toe Visit Vitals BP 122/68 Pulse 68 Resp 16 Ht 5' 9 Wt 166 lb 3.2 oz SpO2 91% BMI 24.54 kg/m Smoking Status Former BSA 1.92 m Review of Systems Constitutional: Negative for chills, fatigue and fever. Respiratory: Negative for cough, shortness of breath and wheezing. Cardiovascular: Negative for chest pain, palpitations and leg swelling. Gastrointestinal: Negative for abdominal pain, constipation, diarrhea, nausea and vomiting. Musculoskeletal: Positive for arthralgias, back pain and gait problem. Skin: Positive for rash. Objective Physical Exam Constitutional: General: He is not in acute distress. Appearance: Normal appearance. HENT: Head: Normocephalic and atraumatic. Right Ear: Decreased hearing noted. Left Ear: Decreased hearing noted. Ears: Comments: Wears hearing aids Eyes: General: No scleral icterus. Cardiovascular: Rate and Rhythm: Normal rate and regular rhythm. Heart sounds: No murmur heard. Pulmonary: Effort: Pulmonary effort is normal. No respiratory distress. Breath sounds: Normal breath sounds. No wheezing, rhonchi or rales. Musculoskeletal: General: No swelling. Skin: General: Skin is warm and dry. Findings: Wound present. Comments: 1 cm ulceration of left coccygeal region, erythema of bilateral coccygeal region, no purulent drainage Neurological: General: No focal deficit present. Mental Status: He is alert and oriented to person, place, and time. Gait: Gait abnormal (Antalgic, using walker). Psychiatric: Mood and Affect: Mood normal. Behavior: Behavior normal. Assessment/Plan Diagnoses and all orders for this visit: Pressure ulcer of coccygeal region, stage 2 (CMS/HCC) - Wound Dressings (Medihoney wound/burn) gel; Apply 1 application topically Daily for 14 doses Start the above once a day. Given pt's current orthopedic issues, he has difficulty off loading the area. Many positions aggravate his back pain. Encouraged him to off load the area when ever possible. Walk slowly around house when possible. Allow area to fully air dry after bathing before getting dressed. Will see him back for a recheck in 1-2 weeks. If not improving, or worsening, can refer to Wound Care [facility]. Need for vaccination - Influenza, high-dose seasonal, quadrivalent, PF ([id number]) (Fluzone High Dose [place] 0.7mL dose) Provided pt with Flu shot today. He tolerated this well. Follow up for Wound Check in 1-2 Weeks. documented in this encounter [facility] 12-25-2023 Telephone encounter Note Ariadna good [facility] Work Phone: 12-25-2023 Miscellaneous Notes Ariadna good I can see him in [place] today but I dont know how much I will be able to do. Gerardo son called for patient stated his dad was seen for L-spine and hip pain by you and Dr Rutherford he was referred to pain mgmt in [facility] also, he can hardly walk and in a lot of pain. He asked where he should start, he did try [facility] mgmt number but had trouble getting ahold of them, I gave him the number to hospital and told him to ask for pain mgmt. He asked should he go there or can you or Dr Rutherford see him? Please advise. His call back [phone] documented in this encounter [facility] 12-25-2023 Telephone encounter Note I can see him in [place] today but I dont know how much I will be able to do. [facility] 12-25-2023 Telephone encounter Note Gerardo son called for patient stated his dad was seen for L-spine and hip pain by you and Dr Rutherford he was referred to pain mgmt in [facility] also, he can hardly walk and in a lot of pain. He asked where he should start, he did try [facility] mgmt number but had trouble getting ahold of them, I gave him the number to hospital and told him to ask for pain mgmt. He asked should he go there or can you or Dr Rutherford see him? Please advise. His call back [phone] [facility] 12-19-2023 History of Present illness Narrative Images from the original note were not included. Chief Complaint Patient presents with Pelvis - Follow-up HISTORY OF PRESENT ILLNESS: Enrique Mike is an 88 y.o. @ male. Low back/pelvis injury x 6 weeks 2 days, 11/05/23, fell back off a ladder. Went to [facility] ER 11/05, had CT abdomen pelvis and given norco. Hx decompressive laminectomy L3-4, L4-5 (12/01/21)- Dr Rutherford Walking with a walker. States he was doing fine but has recently been having a terrible time. Unsure if something shifted. Pain is mostly LT sided. Taking TYL and IBU. Prior tx: [facility] ER 11/06/23, CT abdomen pelvis, norco, TYL, XR [facility] 12/19/23 ALLERGIES: No Known Allergies HOME MEDICATIONS: Current Outpatient Medications Medication Instructions acetaminophen (TYLENOL) 325 mg, Oral, Every 6 hours PRN baclofen (LIORESAL) 10 mg, Oral, 2 times daily PRN co-enzyme Q-10 100 mg, Oral, Daily finasteride (PROSCAR) 5 mg, Oral, Daily HYDROcodone-acetaminophen ([place]) 5-325 MG tablet 1 tablet, Oral, Every 6 hours PRN levothyroxine (Synthroid, Levoxyl) 100 MCG tablet TAKE 1 TABLET BY MOUTH DAILY; hold on sundays lisinopril 10 mg, Oral, Daily lovastatin (MEVACOR) 20 mg, Oral, Daily with evening meal meloxicam (Mobic) 15 MG tablet TAKE 1 TABLET BY MOUTH IN THE MORNING WITH FOOD methylPREDNISolone (Medrol Dospak) 4 MG tablets Follow schedule on package instructions Nutritional Supplements (PROSTA JENISE PO) Oral, 2 times daily tamsulosin (FLOMAX) 0.4 mg, Oral, Daily PHYSICAL EXAM: Right Hip Exam Tenderness The patient is experiencing no tenderness. Other Sensation: normal Left Hip Exam Tenderness The patient is experiencing tenderness in the posterior. Back Exam Tenderness The patient is experiencing tenderness in the sacroiliac. Other Gait: antalgic (using walker) Vitals: There is no height or weight on file to calculate BMI. IMAGING: XR pelvis 1 or 2 views Imaging Result: 12/19/2023 AP pelvis demonstrate healing right pubic rami fracture and healing left acetabulum fracture in acceptable alignment with increased callus formation. No definitive union of right pubic rami fracture. No signs of displacement. Impression: Healing right pubic rami and left acetabulum fracture. Lita Silvestre [employer]S OFFICER-[employer] PROFESSOR ASSESSMENT: ICD-10-CM 1. Closed fracture of multiple pubic rami, right, with routine healing, subsequent encounter S32.591D XR pelvis 1 or 2 views 2. Closed nondisplaced fracture of medial wall of left acetabulum with routine healing, subsequent encounter S32.475D XR pelvis 1 or 2 views 3. Left-sided low back pain with left-sided sciatica, unspecified chronicity M54.42 methylPREDNISolone (Medrol Dospak) 4 MG tablets Procedures PLAN: I reviewed xray findings with patient which demonstrated stable right pubic rami fracture and left acetabulum fracture. He states most of his pain is in his left SI region. I recommend MDP for back pain and for him to continue to avoid walking or standing for longer than 10 minutes. Follow up in 4 weeks for RCK. Questions answered in laymen terms at the bedside. The diagnosis, home exercise plan and any ongoing restrictions/ recommendations reviewed. If unable to be reached in office, I recommend evaluation at nearest Emergency Room if any symptoms worsened or new symptoms develop for requiring urgent evaluation. Lita Silvestre [employer]'S OFFICER-J[employer] PROFESSOR documented in this encounter [facility] 11-23-2023 History of Present illness Narrative Images from the original note were not included. Chief Complaint Patient presents with Pelvis - Follow-up HISTORY OF PRESENT ILLNESS: Enrique Mike is an 88 y.o. @ male. Low back/pelvis injury x 2 weeks 4 days, 11/05/23, fell back off a ladder. Went to [facility] ER 11/05, had CT abdomen pelvis and given norco. Hx decompressive laminectomy L3-4, L4-5 (12/01/21)- Dr Rutherford WBAT with walker. States he sat for a while in a hard chair, had increased pain. Pain near RT hip/buttocks. Taking TYL. Denies N/T. Does not wake at HS, sleep better in chair. Increased pain with walking. Prior tx: [facility] ER 11/06/23, CT abdomen pelvis, norco, TYL ALLERGIES: No Known Allergies HOME MEDICATIONS: Current Outpatient Medications Medication Instructions acetaminophen (TYLENOL) 325 mg, Oral, Every 6 hours PRN baclofen (LIORESAL) 10 mg, Oral, 2 times daily PRN co-enzyme Q-10 100 mg, Oral, Daily finasteride (PROSCAR) 5 mg, Oral, Daily HYDROcodone-acetaminophen ([place]) 5-325 MG tablet 1 tablet, Oral, Every 6 hours PRN levothyroxine (Synthroid, Levoxyl) 100 MCG tablet TAKE 1 TABLET BY MOUTH DAILY; hold on sundays lisinopril 10 mg, Oral, Daily lovastatin (MEVACOR) 20 mg, Oral, Daily with evening meal meloxicam (Mobic) 15 MG tablet TAKE 1 TABLET BY MOUTH IN THE MORNING WITH FOOD Nutritional Supplements (PROSTA JENISE PO) Oral, 2 times daily tamsulosin (FLOMAX) 0.4 mg, Oral, Daily PHYSICAL EXAM: Right Hip Exam Tenderness The patient is experiencing tenderness in the anterior (increased since last visit). Other Sensation: normal Comments: ROM not stressed due to fracture. Ambulating with walker Left Hip Exam Tenderness The patient is experiencing tenderness in the anterior and posterior. Other Sensation: normal Back Exam Comments: Some thoracic pain from rib fracture Vitals: There is no height or weight on file to calculate BMI. IMAGING: XR pelvis 1 or 2 views Imaging Result: 11/23/2023 AP pelvis demonstrated stable right pubic rami fracture and healing left acetabulum fracture in acceptable alignment. No signs of displacement Impression: Stable right pubic rami and left acetabulum fracture. Lita Silvestre [employer]S OFFICER-[employer] PROFESSOR ASSESSMENT: ICD-10-CM 1. Closed fracture of multiple pubic rami, right, with routine healing, subsequent encounter S32.591D XR pelvis 1 or 2 views 2. Closed nondisplaced fracture of medial wall of left acetabulum with routine healing, subsequent encounter S32.475D XR pelvis 1 or 2 views Procedures PLAN: I reviewed xray findings with patient which demonstrated stable right pubic rami fracture and left acetabulum fracture. I encouraged patient to rest and avoid prolonged walking or sitting on hard objects as this increases his pain. He will follow up in 4 weeks for RCK and xray. He will call with any worsening symptoms. Questions answered in laymen terms at the bedside. The diagnosis, home exercise plan and any ongoing restrictions/ recommendations reviewed. If unable to be reached in office, I recommend evaluation at nearest Emergency Room if any symptoms worsened or new symptoms develop for requiring urgent evaluation. Lita Silvestre SH[employer]'S OFFICER-JAPANESE PROFESSOR documented in this encounter [facility] 10-15-2021 Note PROCEDURE: Multiplan ar, multisequence imaging [...] signed by Kota Vargas on 10/18/[address] [facility] Chuck Boner 06-23-2021 Note [id number] 06-23-2021 Note [id number] 06-22-[address] HARRIS POST [...] or concerns, please call the office at [phone] -Follow up as scheduled [facility] 06-22-2021 Note [facility] 2SOUT Clinical Discharge Summary PERSON INFORMATION Name ENRIQUE MIKE Age 85 Years 1935 Sex MALE Language French PCP JERMAIN MENCHACA MD Marital Status Med Service Observation Acct# Arrival 06/21/2021 05:54:00 Visit Reason SURGERY - LEFT REVERSE TOTAL SHOULDER - ARTHREX Acuity LOS 000 29:26 Address: [address] [place] [address] Comment: PROVIDER INFORMATION VITALS INFORMATION Vital Sign [...] EDUCATION INFORMATION Instructions: Sangeeta- [facility] Follow up: With: Address: When: Enrique Rutherford [address] [place] [address], [address] [place] [address] [facility] (1) 06/29/2021 10:45 AM DIAGNOSIS Osteoarthritis of left shoulder; Other specific arthropathies, not elsewhere classified, left shoulder; Rotator cuff tear arthropathy of left shoulder Comment: PHYS DOC NOTES [facility] 06-21-2021 Note [id number] [facility] Evaluation note Diagnosis Closed fracture of multiple pubic rami, right, with routine healing, subsequent encounter Closed nondisplaced fracture of medial wall of left acetabulum with routine healing, subsequent encounter [facility] Diagnosis Screening PSA (prostate specific antigen)- Primary Special screening for malignant neoplasm of prostate Cervicalgia Benign essential hypertension (CMS/HCC) Essential hypertension, benign Abnormal glucose tolerance test Impaired glucose tolerance test Nocturia Pure hypercholesterolemia (CMS/HCC) Pure hypercholesterolemia Screening for prostate cancer Special screening for malignant neoplasm of prostate Routine general medical examination at health care facility Routine general medical examination at a health care facility Acquired hypothyroidism (CMS/HCC) Unspecified hypothyroidism Stage 3b chronic kidney disease (HCC) (CMS/HCC) Benign essential hypertension (CMS/HCC)- Primary Essential hypertension, benign Great toe pain, left Paronychia of great toe of left foot 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- Primary Routine general medical examination at health care facility- Primary Routine general medical examination at a health care facility 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) Benign essential hypertension (CMS/HCC) Essential hypertension, benign Pure hypercholesterolemia (CMS/HCC) Pure hypercholesterolemia Closed fracture of multiple pubic rami, right, with routine healing, subsequent encounter- Primary Closed nondisplaced fracture of medial wall of left acetabulum with routine healing, subsequent encounter Left-sided low back pain with left-sided sciatica, unspecified chronicity documented [facility] encounter [facility]* Diagnosis Screening PSA (prostate specific antigen)- Primary Special screening for malignant neoplasm of prostate Cervicalgia Benign essential hypertension (CMS/HCC) Essential hypertension, benign Abnormal glucose tolerance test Impaired glucose tolerance test Nocturia Pure hypercholesterolemia (CMS/HCC) Pure hypercholesterolemia Screening for prostate cancer Special screening for malignant neoplasm of prostate Routine general medical examination at health care facility Routine general medical examination at a health care facility Acquired hypothyroidism (CMS/HCC) Unspecified hypothyroidism Stage 3b chronic kidney disease (HCC) (CMS/HCC) Benign essential hypertension (CMS/HCC)- Primary Essential hypertension, benign Great toe pain, left Paronychia of great toe of left foot 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- Primary Routine general medical examination at health care facility- Primary Routine general medical examination at a health care facility 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) Benign essential hypertension (CMS/HCC) Essential hypertension, benign Pure hypercholesterolemia (CMS/HCC) Pure hypercholesterolemia Pressure ulcer of coccygeal region, stage 2 (CMS/HCC)- Primary Need for vaccination Need for prophylactic vaccination and inoculation against unspecified single disease documented [facility] this encounter [facility]* Diagnosis Screening PSA (prostate specific antigen)- Primary Special screening for malignant neoplasm of prostate Cervicalgia Benign essential hypertension (CMS/HCC) Essential hypertension, benign Abnormal glucose tolerance test Impaired glucose tolerance test Nocturia Pure hypercholesterolemia (CMS/HCC) Pure hypercholesterolemia Screening for prostate cancer Special screening for malignant neoplasm of prostate Routine general medical examination at health care facility Routine general medical examination at a health care facility Acquired hypothyroidism (CMS/HCC) Unspecified hypothyroidism Stage 3b chronic kidney disease (HCC) (CMS/HCC) Benign essential hypertension (CMS/HCC)- Primary Essential hypertension, benign Great toe pain, left Paronychia of great toe of left foot 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- Primary Routine general medical examination at health care facility- Primary Routine general medical examination at a health care facility 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) Benign essential hypertension (CMS/HCC) Essential hypertension, benign Pure hypercholesterolemia (CMS/HCC) Pure hypercholesterolemia Pressure ulcer of coccygeal region, stage 2 (CMS/HCC)- Primary documented in this encounter [facility] Summary Purpose Family History No Family History [...] section and content) DATE CREATED AUTHOR 10/13/2021 [facility] DATE CREATED AUTHOR AUTHOR'S ORGANIZ ATION 10/18/2021 [facility] dical Specialist DATE CREATED AUTHOR AUTHOR'S ORGANIZ ATION 12/20/2021 [facility] DATE CREATED AUTHOR AUTHOR'S ORGANIZ ATION 11/07/2023 [facility] DATE CREATED AUTHOR AUTHOR'S ORGANIZ ATION 01/09/2024 [facility] DATE CREATED AUTHOR AUTHOR'S ORGANIZ ATION 01/11/2024 [facility] dical Specialists EPIC Care Teams (unrecognized sec tion and content) Relay Assembler Relationship Specialty Start Date End Date Jermain Menchaca MD [address] [facility] [address] [place] [address] PCP - General Family Medicine 07/04/22 Jermain Menchaca MD [address] [place] [address] [place] [address] PCP - ACO Reach 07/14/22 Relay Assembler Relationship Specialty Start Date End Date Jermain Menchaca MD [address] [place] [address] [place] [address] PCP - General Family Medicine 07/04/22 Jermain Menchaca MD [address] [place] [address] [place] [address] PCP - ACO Reach 07/14/22 Relay Assembler Relationship Specialty Start Date End Date Jermain Menchaca MD [address] [place] [address] [place] [address] PCP - General Family Medicine 07/04/22 Jermain Menchaca MD [address] [place] [address] [place] [address] PCP - ACO Reach 07/14/22 Relay Assembler Relationship Specialty Start Date End Date Jermain Menchaca MD [address] [place] [address] [place] [address] PCP - General Family Medicine 07/04/22 Jermain Menchaca MD [address] [place] [address] [place] [address] PCP - ACO Reach 07/14/22 Relay Assembler Relationship Specialty Start Date End Date Jermain Menchaca MD [address] [place] [address] [place] [address] PCP - General Family Medicine 07/04/22 Jermain Menchaca MD [address] [place] [address] [place] [address] PCP - ACO Reach 07/14/22 Relay Assembler Relationship Specialty Start Date End Date Jermain Menchaca MD [address] [facility] [address] [place] [address] PCP - General Family Medicine 07/04/22 Jermain Menchaca MD [address] [facility] [address] [place] [address] PCP - ACO Reach 07/14/22 Relay Assembler Relationship Specialty Start Date End Date Jermain Menchaca MD [address] [facility] [address] [place] [address] PCP - General Family Medicine 07/04/22 Jermain Menchaca MD [address] [facility] [address] [place] [address] PCP - ACO Reach 07/14/22 Reason for Visit (unrecogniz ed section and content) Reason Comments Follow-up Reason Onset Date Comments question 12/25/2023 FOR RECORDS PERTAINING TO PATIENTS WHO ARE [...] BE BASED ON THE PRIMARY CLINICAL RECORDS. [facility]. provides no warranty or guarantee of the accuracy or completeness of information in this document.
--- NOTE | 2024-01-17 13:34 | P.CN_ITS ---
Consult Note: HPI Data of Consult Patient: known to practice within the last 3 years Consult date: 12/25/23 Requesting Physician: Gracie Mcqueen NP Primary Care Provider: JERMAIN MENCHACA Consult Narrative Reason for consult: low back, left hip and leg pain Narrative: 88yom who presents for assessment. had fall at home 2 months ago, has had increasing pain down left leg. imaging reviewed, significant for severe stenosis at multiple levels in lumbar spine. has engaged in a series of provider directed home exercises >6 weeks, without benefit. uses tylenol, mobic, tramadol 50mg HS PRN. recently underwent left L4/5 L5/s1 TFESI with 50% improvement ongoing cc:: CC: Gracie Mcqueen NP Review of Systems ROS Status of ROS 10 or more systems reviewed and unremark able except as noted in history and below Musculoskeletal Reports: back pain and joint pain PFSH PFSH Medical History Rotator cuff tear, left ?M75.102 - Unspecified rotator cuff tear or rupture of left shoulder, not specified as traumatic (ICD-10) Macular degeneration ?H35.30 - Unspecified macular degeneration (ICD-10) Carpal tunnel syndrome ?G56.00 - Carpal tunnel syndrome, unspecified upper limb (ICD-10) Hearing deficit ?H91.90 - Unspecified hearing loss, unspecified ear (ICD-10) Stroke ?I63.9 - Cerebral infarction, unspecified (ICD-10) High blood pressure ?I10 - Essential (primary) hypertension (ICD-10) Surgical History Hx of decompressive lumbar laminectomy ?Z98.890 - Other specified postprocedural states (ICD-10) 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 - Presence of left artificial shoulder joint (ICD-10) 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) Meds Home Medications and Allergies Home Medications ?Medication ?Instructions ?Recorded ?Confirmed ?Type CITRUS BIOFLAVONOID COMPLEX DAILY 08/07/23 History aspirin 81 mg capsule 81 mg PO BID 08/07/23 01/01/24 History finasteride 5 mg tablet 5 mg PO DAILY 08/07/23 01/01/24 History levothyroxine 100 mcg tablet 100 mcg PO DAILY 08/07/23 01/01/24 History lovastatin 20 mg tablet 20 mg PO DAILY 08/07/23 01/01/24 History meloxicam 15 mg tablet 15 mg PO DAILY 08/07/23 01/01/24 History tamsulosin 0.4 mg capsule 0.4 mg PO Q24H 08/07/23 01/01/24 History vit A 7,160 unit-C 113 mg-E 100 tab PO 08/07/23 History beft-ovom-alyuhj tablet,delayed rel. lisinopril 10 mg tablet 10 mg PO DAILY 08/28/23 01/01/24 History Allergies Allergy/AdvReac Type Severity Reaction Status Date / Time No Known Drug Allergies Allergy Verified 01/01/24 10:30 Exam Narrative Exam Narrative: Psych-alert and oriented x 3. Attentive and appropriate, constitutionally normal, displays normal mood and affect per situation. There are no obvious deficits in memory, reasoning, or intellect.? Skin-no obvious rashes, bruising, erythema noted to the patient's area of pain.? Extremities- extremities are warm with minimal edema and palpable pulses. Lumbar-tenderness to palpation noted in the lumbar spine and paraspinal musculature. Pain is elicited with flexion, extension, and lateral rotation of the lumbar spine. Range of motion is diminished with these motions. Facet loading maneuvers are positive.? Strength-noted to be unremarkable Sensory-no notable sensory deficits in the bilateral lower extremities to touch or pinprick in all dermatomal distributions Sacroiliac - tender to palpation over left PSIS. Positive Eduardo's on the left. Positive thigh thrust on the left. Coordination remains intact.? Gait remains non-antalgic. Results Additional Findings Additional findings: If on a controlled substance or opioids, I have checked an [place] report on this patient and there are no aberrancies noted in the prescribing history.??If on a controlled substance or opioid a drug screen was completed and reviewed within the last year, and if there has not been a drug screen completed we ordered one today to monitor higher risk, state monitored pain medication use. As part of providing excellent, safe, comprehensive care, the following was completed at our patient's visit: 1. A medication reconciliation and review to ensure accurate knowledge of current/active medications, including asking our patients to inform us about any [id number] medications or herbal remedies/nutritional supplements/alternative remedies. 2. A review to specifically ensure our patients have had annual screening for screening for depression, screening for tobacco use, and screening for unhealthy alcohol use. For concerning screenings had a discussion with the patient, provided patient education, and recommended follow-up with primary care provider when appropriate. If patient noted with a risk of falling, they received education on strength, gait, and balance training to prevent future risk of falling. Assessment and Plan Assessment and Plan (1) Lumbar stenosis with neurogenic claudication: (2) Sacroiliac joint disease: Plan 88yom who presents for assessment. failed conservative measures, as noted. imaging reviewed, as noted. given symptoms and imaging, prudent to attempt left sacroiliac joint injection. he is in agreement. meds reviewed, continue current regimen, tolerating well without side effects. follow up after procedure.
== END 2024-01-17 13:17 | disposition home or self-care (01) ==
LOC: PM 13:16
PROVIDERS: PCP Family Medicine; Visit Provider Nurse Practitioner
DX: M48.062 Spinal stenosis, lumbar region with neurogenic claudication (principal); M53.3 Sacrococcygeal disorders, not elsewhere classified
CPT/HCPCS: G0463

== ENCOUNTER 2024-01-22 08:13 | Day surgery (SDC) | payer MEDICARE, SELFPAY ==
[2024-01-22 08:44] VITALS: BP 151/69; PULSE 50; TEMP 36.3; O2SAT 98
[2024-01-22 09:01] VITALS: PULSE 94; O2SAT 98
[2024-01-22] MEDS: IOHEXOL 240 MG/ML - 10 ML VIAL 24 MG INJ (09:01)
[2024-01-22] MEDS: LIDOCAINE HCL 2% 400 MG/20 ML MDV 3 ML INJ (09:01)
[2024-01-22] MEDS: BUPIVACAINE HCL 0.25% PF 25 MG/10 ML VIAL 2 ML INJ (09:01)
[2024-01-22] MEDS: TRIAMCINOLONE ACETONIDE 40 MG/ML VIAL INJ (09:02)
[2024-01-22 09:03] VITALS: BP 132/60; BP 143/60; PULSE 97; O2SAT 99
--- NOTE | 2024-01-22 09:03 | W.PM.PROCNOT ---
Date of procedure: 01/22/24 Pre-op diagnosis: Pain due to left sacroiliitis Post-op diagnosis: same as pre-op Procedure: Procedure: Left sacroiliac joint injection Medications: Bupivacaine 0.25% 3cc, kenalog 40mg After informed consent was obtained, the patient was brought to the medical procedure unit and placed in the prone position, when a timeout was completed verifying correct patient, procedure, site, positioning, implant, and/or special equipment.? The skin overlying the area was prepped and draped in standard sterile fashion using alcohol.? A 25-gauge needle was inserted towards the left sacroiliac joint under direct fluoroscopic imaging.? Needle tip was advanced until the joint was encountered.? We instilled a total of 2 mL of solution.? Postoperatively needles were removed.? The patient tolerated the procedure well without complication.? The patient reported reduction in pain symptoms postoperatively. Anesthesia: Local Surgeon: Alberto Pacheco Pathology: none sent Condition: stable Disposition: no change
== END 2024-01-22 09:07 | disposition home or self-care (01) ==
LOC: SURGOUT 08:14
PROVIDERS: PCP Family Medicine; Visit Provider Anesthesiology
DX: M46.1 Sacroiliitis, not elsewhere classified (principal)
CPT/HCPCS: 27096; J0665; J3301; Q9966

== ENCOUNTER 2024-01-25 08:11 | Outpatient (OUT) | payer MEDICARE, SELFPAY ==
--- OUTSIDE RECORDS SUMMARY | 2024-01-25 08:18 | XMS_ITS | CCD ---
Author Organization [facility] Care Team Providers Care Russian Language Instructor Name Role Phone NIKOLAI, DR ALY Attending [...] Referring Unavailable JERMAIN MENCHACA Primary Care Unavailable Jermain Menchaca MD Primary Care Provider Jermain Menchaca MD Unavailable Junior LEDEZMA, Alberto Ansari Attending Unavailable Junior LEDEZMA, Alberto Ansari Attending Unavailable Junior LEDEZMA, Andhussain Ansari Attending Unavailable Junior LEDEZMA, Andrius Ansari Attending Unavailable Junior LEDEZMA, Alberto Ansari Attending Unavailable JERMAIN MENCHACA Attending Unavailable ABEL SOLIS Attending Unavailable NIKOLAIJERMAIN [...] SILVESTRE Referring Unavailable CHATA JARVIS Attending Unavailable CHATA JARVIS Attending Unavailable LITA SILVESTRE Attending Unavailable LITA SILVESTRE Referring Unavailable Medications Current Medications Medication Drug Class(es) Dates Sig (Normalized) Sig (Original) acetaminophen 325 mg oral tablet (16 sources) take 1 tablet by mouth every six hours as needed for pain acetaminophen (Tylenol) 325 MG tablet Take 325 mg by mouth every 6 (six) hours if needed for mild pain. Active acetaminophen 325 mg / HYDROcodone bitartrate 5 mg oral tablet (16 sources) Opioid Agonist Start: 4 take 1 tablet by mouth every six hours as needed HYDROcodone-acetamino phen ([place]) 5-325 MG tablet Take 1 tablet by mouth every 6 (six) hours if needed 11/06/2023 Active baclofen 10 mg oral tablet (16 sources) gamma-Aminobutyric Acid-ergic Agonist Start: 3 take 1 tablet by mouth twice daily as needed for muscle spasms baclofen (Lioresal) 10 MG tablet Indications: Cervicalgia Take 1 tablet (10 mg) by mouth 2 (two) times a day as needed for muscle spasms. 60 tablet 2 10/06/2022 Active finasteride 5 mg oral tablet (16 sources) 5-alpha Reductase Inhibitor Start: 3 take 1 tablet by mouth in the morning finasteride (Proscar) 5 MG tablet Take 5 mg by mouth in the morning. 07/15/2022 Active levothyroxine sodium 0.1 mg oral tablet (16 sources) l-Thyroxine Start: 4 take 1 tablet by mouth once daily levothyroxine (Synthroid, Levoxyl) 100 MCG tablet Indications: Hypothyroidism, unspecified (CMS/HCC) TAKE 1 TABLET BY MOUTH DAILY; hold on sundays 90 tablet 3 07/03/2023 Active lisinopril 10 mg oral tablet (16 sources) Angiotensin Converting Enzyme Inhibitor Start: 4 take 1 tablet by mouth once daily lisinopril 10 MG tablet Indications: Benign essential hypertension (CMS/HCC) Take 1 tablet (10 mg) by mouth Daily 100 tablet 3 11/14/2023 Active lovastatin 20 mg oral tablet (16 sources) HMG-CoA Reductase Inhibitor Start: 4 take 1 tablet by mouth at dinner lovastatin (Mevacor) 20 MG tablet Indications: Pure hypercholesterolemia, unspecified (CMS/HCC) TAKE 1 TABLET BY MOUTH with evening meal 100 tablet 3 04/12/2023 Active meloxicam 15 mg oral tablet (16 sources) Nonsteroidal Anti-inflammatory Drug Start: 4 take [...] 12/19/2023 Active Nutritional Supplements (PROSTA JENISE PO) (16 sources) Nutritional Supplements (PROSTA JENISE PO) Take by mouth 2 (two) times a day. Active tamsulosin hydrochloride 0.4 mg oral capsule (16 sources) alpha-Adrenergic Andria Start: 4 take 1 capsule by mouth every twenty-four hours in the morning tamsulosin (Flomax) 0.4 MG 24 hr capsule Indications: Retention of urine, unspecified TAKE 1 CAPSULE BY MOUTH IN THE MORNING 100 capsule 3 01/01/2024 Active Start: 10-30-2023 take 1 capsule by [facility] once daily tamsulosin (Flomax) 0.4 MG 24 hr capsule Indications: Retention of urine, unspecified Take 1 capsule (0.4 mg) by mouth Daily 100 capsule 3 10/30/2023 Active traMADol hydrochloride 50 mg oral tablet (8 sources) Opioid Agonist take 1 tablet by mouth every six hours as needed for pain traMADol (Ultram) 50 MG tablet Take 50 mg by mouth every 6 (six) hours if needed for severe pain Active ubidecarenone 30 mg oral capsule (16 sources) co-enzyme Q-10 3 0 MG capsule Take 100 mg by mouth in the morning. Active Wound Dressings (Medihoney wound/burn) gel (8 sources) Start: 12-26-2023 Wound Dressings (Medihoney wound/burn) [...] disease Onset: 06-01-2023 Blindness and vision defects (16 sources) Blind right eye, normal vision left eye; Translations: [Blindness, one eye, unspecified eye] Onset: 06-13-2023 06-13-2023 Chronic Chronic kidney disease (16 sources) Chronic kidney disease stage 3B ; Translations: [Stage 3b chronic kidney disease (HCC)] Onset: 10-04-2022 10-04-2022 Chronic Chronic ulcer of skin (4 sources) Pressure ulcer of sacral region, stage 2; Translations: [Pressure ulcer, lower back] 12-26-2023 Chronic Disorders of lipid metabolism (16 sources) Pure hypercholesterolemia; Translations: [Pure hypercholesterolemia, unspecified] Onset: 10-04-2022 10-04-2022 Chronic Essential hypertension (16 sources) Benign essential hypertension; Translations: [Essential (primary) [...] 06-23-2022 06-23-2022 Chronic Other connective tissue disease (16 sources) History of left shoulder arthroplasty; Translations: [Presence of left artificial shoulder joint] Onset: 06-23-2022 06-23-2022 Chronic Other connective tissue disease (16 sources) History of reverse prosthetic total arthroplasty [...] closed fracture] Onset: 11-06-2023 Episodic Other fractures (6 sources) Fracture of multiple pubic rami; Translations: [Other specified fracture of right pubis, subsequent encounter for fracture with routine healing] 11-23-2023 Episodic Other fractures (4 sources) Closed fracture of medial wall of acetabulum; Translations: [Nondisplaced fracture of medial wall of left acetabulum, subsequent encounter for fracture with routine healing] 11-23-2023 Episodic Other nervous system disorders (16 sources) Carpal tunnel syndrome of right wrist; Translations: [Carpal tunnel syndrome, right upper limb] Onset: 10-04-2022 10-04-2022 Chronic Phlebitis; thrombophlebitis and thromboembolism (5 sources) History of thromboembolism of vein; Translations: [Personal history of other venous thrombosis and embolism] Onset: 01-09-2024 01-09-2024 Episodic Retinal detachments; defects; vascular occlusion; and retinopathy (1 source) Unspecified retinal vascular occlusion; Translations: [Unspecified retinal vascular occlusion] Onset: 06-01-2023 Chronic Spondylosis; intervertebral disc disorders; other back problems (16 sources) Degeneration of lumbar intervertebral disc; Translations: [Degenerative disc disease, lumbar] Onset: 10-04-2022 10-04-2022 Chronic Thyroid disorders (16 sources) Hypothyroidism; Translations: [Hypothyroidism, unspecified] Onset: 12-09-2021 10-04-2022 Chronic Transient cerebral ischemia (17 sources) Transient cerebral ischemic attack, unspecified; Translations: [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] Onset: 06-01-2023 08-21-2023 Chronic Past or Other Problems Problem Classification Problem Date Documented Da te Episodic/Chronic Aortic and peripheral arterial embolism or thrombosis (17 sources) Embolism and thrombosis of unspecified artery; Translations: [Arterial embolus and thrombosis] Onset: 06-02-2023 Resolved: 01-09-2024 10-30-2023 Chronic Fluid and electrolyte disorders (1 source) Hypo-osmolality and hyponatremia; Translations: [Hypo-osmolality and hyponatremia] Onset: 12-09-2021 Episodic Heart valve disorders (1 source) Unspecified abnormalities of heart beat; Translations: [Unspecified abnormalities of heart beat] Onset: 06-01-2023 Episodic Other connective tissue disease (16 sources) Tear of left rotator cuff; Translations: [Unspecified rotator cuff tear or rupture of left shoulder, not specified as traumatic] Onset: 10-04-2022 10-04-2022 Episodic Other connective tissue disease (16 sources) Pain in hallux; Translations: [Pain in left toe(s)] Onset: 04-10-2023 04-10-2023 Episodic Other gastrointestinal disorders (16 sources) Constipation; Translations: [Constipation, unspecified] Onset: 12-09-2021 04-10-2023 Episodic Other non-epithelial cancer of skin (16 sources) Basal cell carcinoma of face; Translations: [Basal cell carcinoma of skin of unspecified parts of face] Onset: 10-04-2022 10-04-2022 Episodic Other nutritional; endocrine; and metabolic disorders (16 sources) H/O: thyroid disorder; Translations: [Personal history of other endocrine, nutritional and metabolic disease] Onset: 10-04-2022 10-04-2022 Episodic Residual codes; unclassified (16 sources) Family history of ischemic heart disease; Translations: [Family history of ischemic heart disease and other diseases of the circulatory system] Onset: 10-04-2022 10-04-2022 Episodic Screening and history of mental health and substance abuse codes (16 sources) Ex-smoker; Translations: [Personal history of nicotine dependence] Onset: 10-04-2022 10-04-2022 Episodic Skin and subcutaneous tissue infections (16 sources) Paronychia of toe of left foot; Translations: [Cellulitis of left toe] Onset: 04-10-2023 04-10-2023 Episodic Spondylosis; intervertebral disc disorders; other back problems (20 sources) Backache; Translations: [Spinal stenosis of lumbar region] Onset: 12-01-2021 10-04-2022 Episodic Results Test Name Value Interpretation Reference Range Facility XR Pelvis 1 or 2 [facility] Result: 01/16/2024 AP pelvis demonstrate well healing healing right pubic rami fracture and healing left acetabulum fracture in acceptable alignment with increased callus formation. No signs of displacement. Impression: Healing right pubic rami and left acetabulum fracture. [facility] (narrative) [facility] XR Pelvis 1 or 2 [facility] Result: 12/19/2023 AP pelvis demonstrate healing right pubic rami fracture and healing left acetabulum fracture in acceptable alignment with increased callus formation. No definitive union of right pubic rami fracture. No signs of displacement. Impression: Healing right pubic rami and left acetabulum fracture. [facility]vis 1 or 2 [facility] By: Enrique Rutherford on 12-21-2023 [facility] Work Phone: XR Pelvis 1 or 2 [facility] Study observation (narrative) [facility] XR Pelvis 1 or 2 [facility] Result: 11/23/2023 AP pelvis demonstrated stable right pubic rami fracture and healing left acetabulum fracture in acceptable alignment. No signs of displacement Impression: Stable right pubic rami and left acetabulum fracture. [facility] XR Pelvis 1 or 2 [facility] d By: Enrique Rutherford on 11-24-2023 [facility] Work Phone: XR Pelvis 1 or 2 [facility] Study observation (narrative) [facility] BASIC METABOLIC PANLon 11-05 Anion gap [Moles/Vol] 11 mmol/L Normal 5-15 [facility] Comment on above: Performed By: #### C BCA, BMP ####[facility] ([id number])[address] [place] [address] 12735 Calcium [Mass/Vol] 8.6 mg/dL Normal 8.5-10.5 [facility] Comment on above: Performed By: #### C BCA, BMP ####[facility] ([id number])[address] [place] [address] 49267 Chloride [Moles/Vol] 94 mmol/L Low 98-109 [facility] Comment on above: Performed By: #### C BCA, BMP ####[facility] ([id number])[address] [place] [address] 58420 CO2 [Moles/Vol] 24 mmol/L Normal 22-32 [facility] Comment on above: Performed By: #### C BCA, BMP ####[facility] ([id number])[address] [place] [address] 77635 Creatinine [Mass/Vol] 1.18 mg/dL Normal 0.70-1.20 [facility] Comment on above: Result Comment: METH OD TRACEABLE TO IDMS STANDARD Performed By: #### C BCA, BMP ####[facility] ([id number])[address] [place] [address] 40901 GFR/1.73 sq M.predicted among non-blacks MDRD (S/P/Bld) [Vol rate/Area] 60 mL/min/{1.73_m2} Normal >59 [facility] Comment on above: Result Comment: Reported eGFR is based on the CKD-EPI 2020 equation that does not use a race coefficient. Performed By: #### C BCA, BMP ####[facility] ([id number])[address] [place] [address] 47037 Glucose [Mass/Vol] 138 mg/dL High 65-99 [facility] Comment on above: Performed By: #### C ANH, BMP ####[facility] ([id number])[address] [place] [address] 01155 Potassium [Moles/Vol] 4.3 mmol/L Normal 3.5-5.0 [facility] Comment on above: Performed By: #### C BCA, BMP ####[facility] ([id number])[address] [place] [address] 50799 Sodium [Moles/Vol] 129 mmol/L Low 134-146 [facility] Comment on above: Performed By: #### C ANH, BMP ####[facility] ([id number])[address] [place] [address] 27498 Urea nitrogen [Mass/Vol] 27 mg/dL Normal 5-27 [facility] Comment on above: Performed By: #### C ANH, BMP ####[facility] ([id number])[address] [place] [address] 57397 CBC AND AUTO DIFFon 11-06-19 24 ABSOLUTE BASOPHIL 0.0 X10E9/L Normal 0.0-0.2 [facility] Comment on above: Performed By: #### C ANH, BMP ####[facility] ([id number])[address] [place] [address] 13838 ABSOLUTE NEUTROPHIL 6.4 X10E9/L Normal 1.5-6.6 [facility] Comment on above: Performed By: #### C BCA, BMP ####[facility] ([id number])[address] [place] [address] 85892 Basophils/100 WBC (Bld) 0.2 % Normal [facility] Comment on above: Performed By: #### C BCA, BMP ####[facility] ([id number])[address] [place] [address], [place] [address] Eosinophils (Bld) [#/Vol] 0.1 10*3/uL Normal 0.0-0.4 [facility] Comment on above: Performed By: #### C ANH, BMP ####[facility] ([id number])[address] [place] [address] 23990 Eosinophils/100 WBC (Bld) 0.7 % Normal [facility] Comment on above: Performed By: #### C ANH, BMP ####[facility] ([id number])[address] [place] [address] 90212 Erythrocyte distribution width (RBC) [Ratio] 13.4 % Normal 11.5-15.0 [facility] Comment on above: Performed By: #### C ANH, BMP ####[facility] ([id number])[address] [place] [address] 32642 Hematocrit (Bld) [Volume fraction] 35.2 % Low 39-49 [facility] Comment on above: Performed By: #### C ANH, BMP ####[facility] ([id number])[address] [place] [address] 40511 Hemoglobin (Bld) [Mass/Vol] 11.9 g/dL Low 13.0-17.0 [facility] Comment on above: Performed By: #### C ANH, BMP ####[facility] ([id number])[address] [place] [address] 61206 Lymphocytes (Bld) [#/Vol] 0.8 10*3/uL Low 1.0-3.5 [facility] Comment on above: Performed By: #### C ANH, BMP ####[facility] ([id number])[address] [place] [address] 41191 Lymphocytes/100 WBC (Bld) 10.2 % Normal [facility] Comment on above: Performed By: #### C ANH, BMP ####[facility] ([id number])[address] [place] [address] 85901 MCH (RBC) [Entitic mass] 32.4 pg Normal 27-34 [facility] Comment on above: Performed By: #### C ANH, BMP ####[facility] ([id number])[address] [place] [address] 18563 MCHC (RBC) [Mass/Vol] 33.9 g/dL Normal 32-36 [facility] Comment on above: Performed By: #### C ANH, BMP ####[facility] ([id number])[address] [place] [address] 10265 MCV (RBC) [Entitic vol] 96 fL Normal 80-100 [facility] Comment on above: Performed By: #### C ANH, BMP ####[facility] ([id number])[address] [place] [address] 49343 Monocytes (Bld) [#/Vol] 0.8 10*3/uL Normal 0-0.9 [facility] Comment on above: Performed By: #### C ANH, BMP ####[facility] ([id number])[address] [place] [address] 37411 Monocytes/100 WBC (Bld) 9.5 % Normal [facility] Comment on above: Performed By: #### C ANH, BMP ####[facility] ([id number])[address] [place] [address] 07438 Neutrophils/100 WBC (Bld) 79.4 % Normal [facility] Comment on above: Performed By: #### C ANH, BMP ####[facility] ([id number])[address] [place] [address] [place] [address] Platelet mean volume (Bld) [Entitic vol] 6.0 fL Low 7-12 [facility] Comment on above: Performed By: #### C BCA, BMP ####[facility] ([id number])[address] [place] [address] 60471 Platelets (Bld) [#/Vol] 225 10*3/uL Normal 150-450 [facility] Comment on above: Performed By: #### C BCA, BMP ####[facility] ([id number])[address] [place] [address] 99851 RBC COUNT 3.68 X10E12/L Low 4.10-5.70 [facility] Comment on above: Performed By: #### C ANH, BMP ####[facility] ([id number])[address] [place] [address] 04327 WBC (Bld) [#/Vol] 8.0 10*3/uL Normal 4.0-11.0 [facility] Comment on above: Performed By: #### C ANH, BMP ####[facility] ([id number])[address] [place] [address] ABDOMEN AND PELVIS W CONT on [...] Hay MD on 11/06/2023 10:03 AM Normal [facility] XR CHEST 1 VWon 11-06-2023 XR CHEST [...] Acosta MD on 11/06/2023 8:58 AM Normal [facility] MR LUMBAR SPINE W AND WO CON [...] Lane. [facility] HX lumbar laminectomy 12/01/21 MR BRAIN W WO CONTon 2 024 MR BRAIN W WO CONT MR [...] Mcleod MD on 06/02/2023 7:34 AM Normal [facility] CBC AND AUTO DIFFon 06-01-19 24 ABSOLUTE BASOPHIL 0.0 X10E9/L Normal 0.0-0.2 [facility] Comment on above: Performed By: #### 1 4979-9, CBCA, 28004-1, 40840-1, 88159-7, PINR, CMP, THYR #### [facility] ([id number]) [address] [place] [address] 00875 #### 72338-1 #### [facility] ([id number]) [address] [place] [address], [address] [place] [address] ABSOLUTE NEUTROPHIL 2.9 X10E9/L Normal 1.5-6.6 [facility] Comment on above: Performed By: #### 1 4979-9, CBCA, 07799-8, 31371-5, 13293-9, PINR, CMP, THYR #### [facility] ([id number]) [address] [place] [address] 44049 #### 06943-8 #### [facility] ([id number]) [address] [place] [address], [address] [place] [address] Basophils/100 WBC (Bld) 0.7 % Normal [facility] Comment on above: Performed By: #### 1 4979-9, CBCA, 89927-2, 43640-5, 73450-8, PINR, CMP, THYR #### [facility] ([id number]) [address] [place] [address] 14645 #### 90026-8 #### [facility] ([id number]) [address] [place] [address], [address] [place] [address] Eosinophils (Bld) [#/Vol] 0.1 10*3/uL Normal 0.0-0.4 [facility] Comment on above: Performed By: #### 1 4979-9, CBCA, 93598-0, 58800-6, 23153-5, PINR, CMP, THYR #### [facility] ([id number]) [address] [place] [address] 08353 #### 13141-3 #### [facility] ([id number]) [address], [address] [place] [address] Eosinophils/100 WBC (Bld) 1.5 % Normal [facility] Comment on above: Performed By: #### 1 4979-9, CBCA, 03087-8, 40226-7, 73114-6, PINR, CMP, THYR #### [facility] ([id number]) [address] [place] [address] 45814 #### 35160-1 #### [facility] ([id number]) [address], [address] [place] [address] Erythrocyte distribution width (RBC) [Ratio] 12.5 % Normal 11.5-15.0 [facility] Comment on above: Performed By: #### 1 4979-9, CBCA, 65601-2, 06207-5, 94010-1, PINR, CMP, THYR #### [facility] ([id number]) [address] [place] [address] 06186 #### 77731-4 #### [facility] ([id number]) [address], [address] [place] [address] Hematocrit (Bld) [Volume fraction] 39.5 % Normal 39-49 [facility] Comment on above: Performed By: #### 1 4979-9, CBCA, 97591-7, 48882-7, 33923-1, PINR, CMP, THYR #### [facility] ([id number]) [address] [place] [address] 19579 #### 17579-6 #### [facility] ([id number]) [address], [address] [place] [address] Hemoglobin (Bld) [Mass/Vol] 13.7 g/dL Normal 13.0-17.0 [facility] Comment on above: Performed By: #### 1 4979-9, CBCA, 91090-6, 98768-2, 18559-5, PINR, CMP, THYR #### [facility] ([id number]) [address] [place] [address] 37873 #### 20140-1 #### [facility] ([id number]) [address], [address] [place] [address] Lymphocytes (Bld) [#/Vol] 1.6 10*3/uL Normal 1.0-3.5 [facility] Comment on above: Performed By: #### 1 4979-9, CBCA, 46869-4, 23724-6, 70164-9, PINR, CMP, THYR #### [facility] ([id number]) [address] [place] [address] 76564 #### 93433-3 #### [facility] ([id number]) [address], [address] [place] [address] Lymphocytes/100 WBC (Bld) 30.9 % Normal [facility] Comment on above: Performed By: #### 1 4979-9, CBCA, 44118-8, 66594-8, 59235-9, PINR, CMP, THYR #### [facility] ([id number]) [address] [place] [address] 98972 #### 92430-1 #### [facility] ([id number]) [address], [address] [place] [address] MCH (RBC) [Entitic mass] 32.8 pg Normal 27-34 [facility] Comment on above: Performed By: #### 1 4979-9, CBCA, 83685-2, 35400-1, 12807-8, PINR, CMP, THYR #### [facility] ([id number]) [address] [place] [address] 36639 #### 15569-9 #### [facility] ([id number]) [address], [address] [place] [address] MCHC (RBC) [Mass/Vol] 34.6 g/dL Normal 32-36 [facility] Comment on above: Performed By: #### 1 4979-9, CBCA, 15104-4, 28350-5, 59445-9, PINR, CMP, THYR #### [facility] ([id number]) [address] [place] [address] 37634 #### 65874-8 #### [facility] ([id number]) [address], [address] [place] [address] MCV (RBC) [Entitic vol] 95 fL Normal 80-100 [facility] Comment on above: Performed By: #### 1 4979-9, CBCA, 21469-9, 36068-0, 39617-0, PINR, CMP, THYR #### [facility] ([id number]) [address] [place] [address] 70877 #### 92759-7 #### [facility] ([id number]) [address], [address] [place] [address] Monocytes (Bld) [#/Vol] 0.6 10*3/uL Normal 0-0.9 [facility] Comment on above: Performed By: #### 1 4979-9, CBCA, 07935-9, 07066-2, 72677-5, PINR, CMP, THYR #### [facility] ([id number]) [address] [place] [address] 77400 #### 90809-6 #### [facility] ([id number]) [address], [address] [place] [address] Monocytes/100 WBC (Bld) 10.8 % Normal [facility] Comment on above: Performed By: #### 1 4979-9, CBCA, 13163-6, 18874-8, 69324-8, PINR, CMP, THYR #### [facility] ([id number]) [address] [place] [address] 78914 #### 16382-6 #### [facility] ([id number]) [address], [address] [place] [address] Neutrophils/100 WBC (Bld) 56.1 % Normal [facility] Comment on above: Performed By: #### 1 4979-9, CBCA, 76935-9, 56754-3, 65934-8, PINR, CMP, THYR #### [facility] ([id number]) [address] [place] [address] 01310 #### 70657-6 #### [facility] ([id number]) [address], [address] [place] [address] Platelet mean volume (Bld) [Entitic vol] 6.8 fL Low 7-12 [facility] Comment on above: Performed By: #### 1 4979-9, CBCA, 76792-0, 09222-1, 11046-7, PINR, CMP, THYR #### [facility] ([id number]) [address] [place] [address] 64078 #### 84253-6 #### [facility] ([id number]) [address], [address] [place] [address] Platelets (Bld) [#/Vol] 206 10*3/uL Normal 150-450 [facility] Comment on above: Performed By: #### 1 4979-9, CBCA, 30409-6, 68775-3, 60004-1, PINR, CMP, THYR #### [facility] ([id number]) [address] [place] [address] 53986 #### 08037-9 #### [facility] ([id number]) [address] [facility], [address] [place] [address] RBC COUNT 4.17 X10E12/L Normal 4.10-5.70 [facility] Comment on above: Performed By: #### 1 4979-9, CBCA, 74731-1, 94663-2, 35555-5, PINR, CMP, THYR #### [facility] ([id number]) [address] [place] [address] 13863 #### 05810-8 #### [facility] ([id number]) [address] [facility], [address] [place] [address] WBC (Bld) [#/Vol] 5.1 10*3/uL Normal 4.0-11.0 [facility] Comment on above: Performed By: #### 1 4979-9, CBCA, 62192-1, 41109-5, 74366-1, PINR, CMP, THYR #### [facility] ([id number]) [address] [place] [address] 15613 #### 37348-9 #### [facility] ([id number]) [address] [facility], [address] [place] [address] COMPREHENSIVE METABOLIC PANE Kory 06-01-2023 Albumin [Mass/Vol] 4.5 g/dL Normal 3.2-5.3 [facility] Comment on above: Performed By: #### 1 4979-9, CBCA, 70825-7, 57524-4, 21012-1, PINR, CMP, THYR #### [facility] ([id number]) [address] [place] [address] 42700 #### 58127-0 #### [facility] ([id number]) [address], [address] [place] [address] ALP [Catalytic activity/Vol] 56 U/L Normal 39-130 [facility] Comment on above: Performed By: #### 1 4979-9, CBCA, 12295-5, 76588-5, 80916-3, PINR, CMP, THYR #### [facility] ([id number]) [address] [place] [address] 38242 #### 64146-2 #### [facility] ([id number]) [address], [address] [place] [address] ALT [Catalytic activity/Vol] 26 U/L Normal 0-40 [facility] Comment on above: Performed By: #### 1 4979-9, CBCA, 91113-2, 05328-6, 92175-3, PINR, CMP, THYR #### [facility] ([id number]) [address] [place] [address] 61044 #### 19607-7 #### [facility] ([id number]) [address], [address] [place] [address] Anion gap [Moles/Vol] 3 mmol/L Low 5-15 [facility] Comment on above: Performed By: #### 1 4979-9, CBCA, 49899-9, 64545-1, 02227-8, PINR, CMP, THYR #### [facility] ([id number]) [address] [place] [address] 81369 #### 89811-1 #### [facility] ([id number]) [address], [address] [place] [address] AST [Catalytic activity/Vol] 32 U/L Normal 0-41 [facility] Comment on above: Performed By: #### 1 4979-9, CBCA, 46657-7, 28228-0, 13955-1, PINR, CMP, THYR #### [facility] ([id number]) [address] [place] [address] 50700 #### 43817-8 #### [facility] ([id number]) [address], [address] [place] [address] Bilirubin [Mass/Vol] 0.8 mg/dL Normal 0.3-1.2 [facility] Comment on above: Performed By: #### 1 4979-9, CBCA, 40879-3, 98243-5, 84107-1, PINR, CMP, THYR #### [facility] ([id number]) [address] [place] [address] 09172 #### 96587-6 #### [facility] ([id number]) [address], [address] [place] [address] Calcium [Mass/Vol] 8.8 mg/dL Normal 8.5-10.5 [facility] Comment on above: Performed By: #### 1 4979-9, CBCA, 44583-2, 39969-4, 58506-9, PINR, CMP, THYR #### [facility] ([id number]) [address] [place] [address] 98630 #### 03599-8 #### [facility] ([id number]) [address], [address] [place] [address] Chloride [Moles/Vol] 104 mmol/L Normal 98-109 [facility] Comment on above: Performed By: #### 1 4979-9, CBCA, 81847-2, 93050-0, 99751-7, PINR, CMP, THYR #### [facility] ([id number]) [address] [place] [address] 17232 #### 89065-0 #### [facility] ([id number]) [address], [address] [place] [address] CO2 [Moles/Vol] 27 mmol/L Normal 22-32 [facility] Comment on above: Performed By: #### 1 4979-9, CBCA, 29440-5, 55344-7, 46453-2, PINR, CMP, THYR #### [facility] ([id number]) [address] [place] [address] 91520 #### 70190-0 #### [facility] ([id number]) [address] [facility], [address] [place] [address] Creatinine [Mass/Vol] 1.25 mg/dL High 0.70-1.20 [facility] Comment on above: Result Comment: METH OD TRACEABLE TO IDMS STANDARD Performed By: #### 1 4979-9, CBCA, 34843-3, 11386-6, 36340-3, PINR, CMP, THYR #### [facility] ([id number]) [address] [place] [address] 74278 #### 01248-3 #### [facility] ([id number]) [address] [facility], [address] [address] GFR/1.73 sq M.predicted among non-blacks MDRD (S/P/Bld) [Vol rate/Area] 56 mL/min/{1.73_m2} Low >59 [facility] Comment on above: Result Comment: Reported eGFR is based on the CKD-EPI 2020 equation that does not use a race coefficient. Performed By: #### 1 4979-9, CBCA, 73443-5, 12070-6, 04880-0, PINR, CMP, THYR #### [facility] ([id number]) [address] [place] [address] 49848 #### 09754-4 #### [facility] ([id number]) [address], [address] [place] [address] Glucose [Mass/Vol] 104 mg/dL High 65-99 [facility] Comment on above: Performed By: #### 1 4979-9, CBCA, 44971-6, 96521-2, 30062-7, PINR, CMP, THYR #### [facility] ([id number]) [address] [place] [address] 94231 #### 25943-7 #### [facility] ([id number]) [address], [address] [place] [address] Potassium [Moles/Vol] 4.3 mmol/L Normal 3.5-5.0 [facility] Comment on above: Performed By: #### 1 4979-9, CBCA, 31010-9, 12353-9, 14420-5, PINR, CMP, THYR #### [facility] ([id number]) [address] [place] [address] 35049 #### 92813-4 #### [facility] ([id number]) [address], [address] [place] [address] Protein [Mass/Vol] 7.3 g/dL Normal 6.0-8.0 [facility] Comment on above: Performed By: #### 1 4979-9, CBCA, 31941-6, 15966-8, 96584-0, PINR, CMP, THYR #### [facility] ([id number]) [address] [place] [address] 06889 #### 62660-6 #### [facility] ([id number]) [address], [address] [place] [address] Sodium [Moles/Vol] 134 mmol/L Normal 134-146 [facility] Comment on above: Performed By: #### 1 4979-9, CBCA, 55705-1, 37619-5, 48926-6, PINR, CMP, THYR #### [facility] ([id number]) [address] [place] [address] #### 97979-4 #### [facility] ([id number]) [address], [address] [place] [address] Urea nitrogen [Mass/Vol] 24 mg/dL Normal 5-27 [facility] Comment on above: Performed By: #### 1 4979-9, CBCA, 87658-0, 45546-4, 64449-0, PINR, CMP, THYR #### [facility] ([id number]) [address] [place] [address] 83694 #### 89764-0 #### [facility] ([id number]) [address], [address] [place] [address] CT BRAIN WO CONT STROKE ALER Ton [...] Camacho MD on 06/01/2023 4:12 PM Normal [facility] CT CTA CAROTIDon 06-01-2023 CT CTA CAROTID [...] low as reasonably achievable. NOTE: The [place] Symptomatic Carotid Endarterectomy Trial (NASCET)calculation of ICA [...] Mcleod MD on 06/01/2023 4:19 PM Normal [facility] CT CTA HEADon 06-01-2023 CT CTA HEAD [...] Agustin MD on 06/01/2023 4:19 PM Normal [facility] Fibrin D-dimer DDU (PPP) [Ma ss/Vol]on 06-01-2023 D DIMER 364 ng/mL DDU High <255 [facility] Comment on above: Result Comment: Results >=255ng/mL [...] level. Performed By: #### 1 4979-9, CBCA, 98894-2, 58643-2, 31976-5, PINR, CMP, THYR #### [facility] ([id number]) [address] [place] [address] 95276 #### 05991-2 #### [facility] ([id number]) [address], [address] [place] [address] Glucose Glucometer (BldC) [M ass/Vol]on 06-01-2023 Glucose [Mass/Vol] 106 mg/dL High 65-99 [facility] HGB A1C (GLYCO-HGB)on 2023 Glucose [Mass/Vol] 111 mg/dL Normal [facility] Comment on above: Performed By: #### 1 4979-9, CBCA, 02612-3, 95560-3, 43069-1, PINR, CMP, THYR ####[facility] ([id number])[address] [place] [address] 11919#### 43084-4 ####[facility] ([id number])[address] [place] [address] 31366 HbA1c (Bld) [Mass fraction] 5.5 % Normal 4.4-5.6 [facility] Comment on above: Result Comment: NOTE ADA Guidelines Result HgbA1c Normal : less than 5.7 % Prediabetes : 5.7 % to 6.4 % Diabetes : > 6.4 % Use with caution in patients with abnormal hemoglobin variants as the half-life of red blood cells and in vivo glycation rates are affected. Performed By: #### 1 4979-9, CBCA, 99187-2, 39607-9, 18672-1, PINR, CMP, THYR ####[facility] ([id number])[address] [place] [address] 77435#### 24923-3 ####[facility] ([id number])[address] [place] [address] 48513 Lipid 1996 panelon 4 Cholesterol [Mass/Vol] 169 mg/dL Normal 150-200 [facility] Comment on above: Performed By: #### 1 4979-9, CBCA, 80264-3, 33546-0, 72413-8, PINR, CMP, THYR ####[facility] ([id number])[address] [place] [address] 79219#### 79150-8 ####[facility] ([id number])[address] [place] [address] 42597 Cholesterol in HDL [Mass/Vol] 40 mg/dL Normal >39 [facility] Comment on above: Result Comment: HDL <40 mg/dL - High Risk HDL > or = 40mg/dL- Desirable HDL >60 mg/dL - Negative Risk Performed By: #### 1 4979-9, CBCA, 19451-4, 43812-4, 20039-3, PINR, CMP, THYR ####[facility] ([id number])[address] [place] [address] 98462#### 45861-8 ####[facility] ([id number])[address], [address] [place] [address] Cholesterol in LDL [Mass/Vol] 69 mg/dL Normal <130 [facility] Comment on above: Result Comment: LDL <100 mg/dL - Desirable LDL >160 mg/dL - High Risk Performed By: #### 1 4979-9, CBCA, 09998-0, 93985-6, 85883-7, PINR, CMP, THYR ####[facility] ([id number])[address] [place] [address] 82446#### 58726-8 ####[facility] ([id number])[address] [facility], [address] [place] [address] Cholesterol in VLDL [Mass/Vol] 60 mg/dL High 0-30 [facility] Comment on above: Performed By: #### 1 4979-9, CBCA, 73959-5, 85833-6, 69241-3, PINR, CMP, THYR ####[facility] ([id number])[address] [place] [address] 96382#### 40014-4 ####[facility] ([id number])[address] [facility], [address] [place] [address] CHOLESTEROL:HDL 4.2 Normal 1.0-5.0 [facility] Comment on above: Performed By: #### 1 4979-9, CBCA, 13918-1, 05164-7, 64189-4, PINR, CMP, THYR ####[facility] ([id number])[address] [place] [address] 90707#### 32863-0 ####[facility] ([id number])[address] [facility], [address] [place] [address] Triglyceride [Mass/Vol] 301 mg/dL High 27-150 [facility] Comment on above: Performed By: #### 1 4979-9, CBCA, 43416-7, 11406-9, 88196-5, PINR, CMP, THYR ####[facility] ([id number])[address] [place] [address] 25257#### 20706-8 ####[facility] ([id number])[address] [facility], [address] [place] [address] MAGNESIUMon 06-01-2023 Magnesium [Mass/Vol] 2.0 mg/dL Normal 1.8-2.6 [facility] Comment on above: Performed By: #### 1 4979-9, CBCA, 34674-1, 92030-6, 88361-1, PINR, CMP, THYR #### [facility] ([id number]) [address] [place] [address] 35557 #### 71332-3 #### [facility] ([id number]) [address] [facility], [address] [place] [address] PROTIME AND INRon 06-01-2023 INR Coag (PPP) [Relative time] 1.0 {INR} Normal 0.8-1.1 [facility] Comment on above: Performed By: #### 1 4979-9, CBCA, 81231-1, 54061-7, 62568-5, PINR, CMP, THYR #### [facility] ([id number]) [address] [place] [address] 75865 #### 42981-8 #### [facility] ([id number]) [address], [address] [place] [address] PT Coag (PPP) [Time] 11.5 s Normal 9.8-13.2 [facility] Comment on above: Result Comment: NEW REFERENCE RANGE Performed By: #### 1 4979-9, CBCA, 15560-3, 41349-0, 41184-8, PINR, CMP, THYR #### [facility] ([id number]) [address] [place] [address] 41017 #### 88669-0 #### [facility] ([id number]) [address], [address] [place] [address] THYROID PROFILEon 06-01-2023 Free T4 [Mass/Vol] 0.95 ng/dL Normal 0.61-1.60 [facility] Comment on above: Performed By: #### 1 4979-9, CBCA, 35401-0, 64756-2, 07690-9, PINR, CMP, THYR ####[facility] ([id number])[address] [place] [address] 97086#### 56754-3 ####[facility] ([id number])[address], [address] [address] TSH 1.43 uIU/mL Normal 0.49-4.67 [facility] Comment on above: Performed By: #### 1 4979-9, CBCA, 22410-5, 04487-4, 60287-0, PINR, CMP, THYR ####[facility] ([id number])[address] [place] [address] 29036#### 79516-9 ####[facility] ([id number])[address] [place] [address] 73096 Troponin I.cardiac High sens itivity method [Mass/Vol]on 06-01-2023 1 HOUR TROP I, HIGH SENSITIVITY 9 ng/L Normal <21 [facility] Comment on above: Performed By: #### 8 9579-7 ####[facility] ([id number])[address] [place] [address] 89930 TROPONIN I, HIGH SENSITIVITY 9 ng/L Normal <21 [facility] Comment on above: Performed By: #### 1 4979-9, CBCA, 56304-0, 69920-4, 50742-5, PINR, CMP, THYR #### [facility] ([id number]) [address] [place] [address] 10247 #### 18881-5 #### [facility] ([id number]) [address] [place] [address] aPTT Coag (PPP) [Time]on aPTT Coag (Bld) [Time] 30 s Normal 26-37 [facility] Comment on above: Result Comment: NEW REFERENCE RANGE Performed By: #### 1 4979-9, CBCA, 41733-3, 91194-1, 50012-9, PINR, CMP, THYR ####[facility] ([id number])[address] [place] [address] 97788#### 11662-8 ####[facility] ([id number])[address] [place] [address], [address] [address] Provider Orderson 07-28-2021 Provider Orders [id number] .00OTGTIFF [facility] Consent Formson 07-09-2021 Consent Forms [id number] .00OTGTIFF [facility] MAGR Preoperative Recordon 0 07-02-2021 MAGR Preoperative Record MAGR Pre-Op Record Summary Primary Physician: Enrique Rutherford DO Finalized Date/Time: 07/02/21 15:05:59 Pt. Name: ENRIQUE MIKE Chrissie Carmona/Sex: 1935 MALE Med Rec #: [id number] Physician: Enrique Rutherford DO Financial #: [id number] Pt. Type: O Room/Bed: 221/1 Admit/Disch: 06/21/21 [...] By: Isabela Soliman RN 07/02/21 15:05 [facility] Coding Summaryon 06-28-2021 Coding Summary HTMLBase 64 UkmgiefuGJz3gCa+PGhlY WQ+RK2KJIIaP26arZDpuO 5MC6sOXW3USIILNAEWBN6 MQI6xcOU1PLxwK0OgfvMd NlcltIRdJB39FLa7OXY9n TwbPCqjwB8bnNHkU8m0Gq AtVJ23rS95ZRbnRKMbChG 3LjZpbjsgbWFy N8thFiVtuNImCdu+PHRhY mxlIHdpZHRoPScxMDAlJy DyzFxtJX4xOs5bSHDbJIN vbGxhcHNlOiBj p5dwUUJsUScrAJ5wzEkxO 9OcwFS2ROSpp8z1Rh43cA I+DCRzHPL4kEfvGFvxl54 0PjXvu2xaCOD3 xUMeVUkyQNO3V13nj9R1G RFbDMQpUHF4sHS7eG5faS bchmbtD8KopNJbLpV3CHL 5aABbpC5fnBjn wbedsP3iOkb+W06CFA5TB BPZCG2IXjo4B1EkTideaD I+PT44ABAzGF11mUQfrBU zo2vxnQe7FxCx EUFoYLZ7fJmtFKewk0OdT QQaO97ujGPun7Q0TUJjfX bevJWnIqNdcYT2oF3gEEq kcipdi6uboguf Euetq0ludx65oA71Q15qS MzjPKBvRLP6KEGiKJKetR rpkd4aoD6qPb3+PWhew4t gw6hecCj3UfJr WMWdxuQehWbxLSF6l7NlU k34H6PbnFnrt4ApUcw3gt 47mRJit5P8gEL6IEyxQUG nxV3dIQrmUwK5 CIWtMgImfV60qYYiWRxvY g9rjVrytMsfHW7iKGPwwg xuRTVshC1rXTBvzINboXh fKM9kAGTfsswj d930PlThKQL3UHVwvICaB 6LjaC8tJyHcFOGqNCMcX2 GpkQCyGRwuH230UCboEcI 6ZYKjtmMpN1Kl AOTttRnhZkC3e0U5Rq5Fj 7TqgtudYJP6RQcxIGX4Vb S5XaChQbG8O3TbYnx9ZAJ seDlzLA2hE2Zd QFMhifgedzcgpZT8OMGpL YVsmM21mNStQWjyXu0jb4 I7c660YFKgAGPqjL54Lh3 udDogMTBwdCBU eJ9nsyxhg5beuiumDxHoX HIyDGx8GBc5ASEexHisNd MlJFB3QjP8OFQ8tSBycS9 hxZbnkpugiS3b Oyc+C14jiT7oHMZ7GAB7c uacQVUkxtHwWB96OH94V0 RyPjwvdGFibGU+PGRpdiB bqBqyTO3sIvYv v5ygd6KzLMwbD9GxAEPlA IpkGia0YWUyPVA0zWY3wE 3mTADnWLcgg9R9nIG8S2Q fiaZbfq8ly6sv YQEgYArhH85baNQmn8C5B ROclSK9DGNviZbtArRmpL 93Oyc+GXCwkPynj8LhKdl je1wcv3axeDl9 DgQbICFohrCxgObyCZR6t 0CmNi59O05cEPmbOKGcMJ XmYKYbCAIscScpgr6hbJ8 wIi8+PGNvbCB3 tEZ2zK6rYWDdIwW9HKxrU 322FbBsqLBqPcano4rqa4 opuNh3BiFvAKCojeEzaMi sZVY4t4MgZp13 N51qAWgrJEZjTOTiKWFmR OYndQggqn5ipJ4pGp6+PC 5rc8smeu74vQ87mHK+PHR dBMV7dMlrHQex NOWbuP5oOTzvIlF1KHNaC sMcxS81mISiXOzkIv4pkA jhvNyvUM0sNZZxjhpow69 5OfKha1xkCLEi sTDoPNamVAP6G98kp8U0W AVaHYUlSTJ6mSN7vQ6djQ lnbjogbGVmdDsgdmVydGl aZGbvLKxzC254 IHRvcDsnPlBhdGllbnQgT wUfMEo9H6TxHhf7REMsgP gaNW5xkSMiYXfrSj6rpJn qhYwcAV2sXVBr wuvri735ZuRjj0acJXNje DDnJNbxNCI0N34zq4V8DT ZvLPAvIZR5zBW6bF2gkNh nbjogbGVmdDsg tzQmcUbgOJrrNVyeS576X HRvcDsnPkJpcnRoIERhdG C9UV66TJ05mKFqx1G5aTD 8R7PgWFGhdlqc pnlduWT1CGIcSFOrbQ90P j7gmGkqIh8rZUCtSAO1ME AwrHFnN4ElhH7uYaFwHQY oZGEkY2KqeLGh QFqkQ449ERtyRqV7VWVnw xEnJ4YqNNIjcTofVkU2r3 C6Oi4CS5F0XY39AD39yRS oo1V7uEG7G5So OLDxciuvehssrAW2CIPrF FCslQ99Xs7giWcwUj6mYX XnEJK1DCTljYNvD3CasW2 yOiAjMDAwMDAw T4JbbFGqCHfqR401KZysW eL1SGOdoqEmC9PpEWXwlP hlVgK7s5H3Zf4IBLr7CG7 3FQ13uMIhg6U3 xKU6A5WjSQGxndbduwwgh AB4TSWrREFipC73Fj0szI saSq4zBXCkHHW7YKXggXQ cI6ImmZ2mDuVc KBXwWUCaE0GnxMYmMXtjK 084LLkcXjB0QSGcylRmG1 CrYEOpnCkiWbW2m3T1Ex5 IDRYjOJ56QVM0 aYZ1PB48SV37M9IlSlpdn GFibGU+PHRhYmxlIHdpZH RoPScxMDAlJyBzdHlsZT0 kFe4pGNZvTAFn hHccxRUcMdIxh7noHFApD JsnIA6gcQpsD4KzsTV3CH Neb6c8Wn37F85oF1VynWE +FKUoxMQ8rGV7 hR3rFzYsMsC8GLpsQ436J jBonPQvZzrgo1kel7qhdZ u8NxY4LGOsqdWraYmfFWF 3f2LvHe83T27i IHdpZHRoPSIxNSUiIHZhb Apdmk3ccQ9dEi7+PGNvbC P8rZK5hB5pDrOgZtE2LMj qV370UoQpyUWq Dxzhs6ane4bzwYy5OqZqY NEdwkWzgWptWSS4h7TxFz 42J2TomNuyc6ZlDne0wr1 4sLGzk3P3lNE6 E9SkBUFiiexbwQNhcZdpO T7mYCIwkeilWDIokT7rUP AgY9k1XnSqKhZ6NYaoO6T pqgU9FIIyeWUz LIamOXM1E17ke8C7QWGsA XZbVAX2hCZ0tN2wlVtnbu ogbGVmdDsgdmVydGljYWw lOCwmD093RMFl iPhvSGZhdI3yDKFlvGDva MjsGP6pOPNnxrdqJjSWXy QfACyXUWKQVGK0S5NbNgr 5FHDsmZynCG6d nVYySMmgUh7hkWrzeDvdI D3oSQGfclcqFUDgaG8rYR AkrCBgyKjtKJ9wHEJgprx wp378ToGmQLR9 FNFykSUlL7BkuR7hAuKrU PBsANTjB3YbjLVlWEgoN1 88MSnfHdF5BLSiuzFvO9D sLWFsaWduOiB0 c4N9Pw8hIl1nMF3oHII0H V26ZZ22pHIdw3U6bPS7J9 LiKAOrrkwswrsvqKD7EAE dYRNlxP30bMFb PGtfGx7cz8E5x046JFHfV BRgsC75Gw9ulRprQWRzkY HUvP6qgzzow2cktjbxCoE bUSRaNFz9OVj5 OCTtzNsaQqVzVGX3HeY2H RK0dTSebR5jiIcbpajlvC 9wOyc+TNAwEGHvitH7R4D kDxf4DBFnyWzb YX3zbFOcUYfsAj7wjNrza EprOX2zIGXgkxaeRDAzvB 6rMHEkyNHbuTxyVT9sCHV ntqgob992WqAk ZAK2GSGtlSYiC2AmaV3xI aTdSVEqCPBpJ5PjjDKmLF crJ089CGcrWkD9QETnxkO jY4PoRIKetFeg AoH8p9N5Qy0BJJwTFO87J Q90bWEio7S8yIN3K7WnFT GppiwppordyGY5JGAkGXH skY17gAEjYQin Jq8qb9S8y427BRUiHYXgb N40Wb2rjDtwOOItcNSMmR 0xyadbr5erdiztLfQdLCE wADa9SKa0GRVi dVfaCvBpYQH4WgZ7PZJ3m ILkvH6nkSfgpmdmdZ5zRe c+H3MiYUT3WZDsc357U3A kPjwvdHI+PC90 LOYqNA29xHVzsJMmv2nem Jb2UgKeIQIsDLK9rAjpXY vvi4QsXXPsS01lwCNby0P 6IGNvbGxhcHNl AyVegXG8uQ2hTYcpjyrcy 4fqychxQmwom9dnzt26kE 80V63jLKvlVIQqZKZnVCA eFSHwdPodnw6w jK6bAq6+VXAvoAN3aNL0h U8aTyMlToO6LLzbE866Iy WdlRRpMavxi0ell2wcnHd 9IjIwJSIgdmFs fKqdTEZ9t1TgJk95J88hS HdpZHRoPSIyMCUiIHZhbG ceps5pvQ0xIx8+GO2pf3u emz60fR12zBQ+ QIOhPSP0iRfxNHmmNNNty J9pBJiyMwT2NJIcPuNvaN 88cUSeOHfuEt7trMvvbGl nIT3mTDAbmvvy z669NdKyi9qhNKTgmBDeD HhxHWD3L25bf8N1DTQnKS AvRAT6tZC1dR1gtWtfirc gbGVmdDsgdmVy uSkuFUmvGKkyZ308TPRuo SyzCrJxwZPoT5guftFAZX 1lOjwvdGQ+KRGyYMD4eVu rVHldVEJsiF6h CQDmJ9b1ZdHtByV8QAvoK 8FegzW9GKUzcDIsSIQjbS JUoG7qunmbe8bqxbbqBkX wGSAiWWb8KOq6 MOIhjOcuPrUdXVI4QuC5X MG5kGUprM0hxNltlenlpE 9wOyc+RklOOjwvdGQ+PHR sYQP0tIyvWBvl RKFhxF1bLOLiH1a3RlSpD cG1SYmuR1SxxjF6IEQpeW HwYEIvnYXXfH1holron3h vcjogIzAwMDAw LAw5CDk6EHScpVtdYhSwK DD4RgX8TYL1hDLbsQ1feH gbooomlL2vXev+TVJOOjw vdGQ+PHRkIHN0 rWwoIMzcXCYstB9rYFLgK 2m9HbYiBbX9WHyrA8Cpiu V7CJPteIBnZLLdhEAWhF7 ttpdcy9sjvqjx HcRqRLQkVIx8XTm5IESot PywLvMgAKV2SaZ9AMP5lJ VofO4ovLqxvdtzlO9mLqn +SPK3FPX6ZM48 WD98Z8WeAaloeQXqiJQ+P HRhYmxlIHdpZHRoPScxMD WxVoBvlClsTA2gQr1fBYH yLWNvbGxhcHNl OiB (more content not included)... [facility] Consent Formson 06-23-2021 Consent Forms [id number] [id number] [facility] Telemetry Strips [id number] on 06-22-2021 Consultation/Specia list [...] on: 06/22/2021 07:09 EDT] BIB [facility] Inpatient Patient Summaryon 06-22-2021 Inpatient Patient Summary [address] [address] Patient Discharge Instructions Name: ENRIQUE MIKE : 1935 Patient Address: [address] [place] [id number] Primary Care Provider: Name: JERMAIN MENCHACA MD After you are discharged if you find you have any questions, please, call [phone] ext [phone] to speak to a nurse. [...] alcohol and/or drug addiction problems; contact the [facility] 12/09 Crisis Hotline -Text 4HQUC to 079749. If you received any narcotics, sedation, or [...] business decisions or sign any legal documents [facility] would like to thank you for allowing us to assist you with your healthcare needs. The following includes patient education materials and information regarding your injury/illness. ENRIQUE MIKE has been given the following list of follow-up instructions, prescriptions, and patient education materials: Follow-up Instructions With: Address: When: Enrique Rutherford [address] [place] [address], [address] [place] [address] Business (1) 06/29/2021 10:45 AM Medications During [...] list. Medication mariana (more content not included)... [facility] MAGR Postoperative Record MAGR Phase II Record Summary Primary Physician: Enrique Rutherford DO Finalized Date/Time: 06/22/21 07:37:50 Pt. Name: ENRIQUE MIKE/Sex: 1935 MALE Med Rec #: [id number] Physician: Enrique Rutherford DO Financial #: [id number] Pt. Type: O Room/Bed: [facility]/ Admit/Disch: 06/21/21 05:54:00 - Institution: Phase II [...] By: Karla Moss RN 06/22/21 07:37 [facility] Progress Note - Nurseon 05-0 Progress Note - Nurse Pt discharged to home. Taken to awaiting car via wheelchair. Belongings sent with pt. [Electronically Signed on: 10/06/2021 14:53 EDT] Emily Kennedy RN [Verified on: 10/06/2021 14:53 EDT] Emily Kennedy RN [facility] Progress Note - Nurse Surgical dressing [...] 10/06/2021 14:53 EDT] Emily Kennedy RN [facility] Progress Note - Nurse Shoulder block wearing off. Pt able to move his wrist and forearm. unable to wiggle fingers but tactile sensation intact. Circ checks WDL. Pain level 4/10. 5mg Oxycodone given. [Electronically Signed on: 10/06/2021 14:53 EDT] Emily Kennedy RN [Verified on: 10/06/2021 14:53 EDT] Emily Kennedy RN [facility] Anesthesia Noteon 06-21-2021 Anesthesia Note Patient: [...] on: 06/21/2021 11:47 EDT] Rod Ann DO [facility] Anesthesia Note Patient: ENRIQUE MIKE Age: [...] = 50 mL, 100 mL/hr, IV Piggyback, Ore Puncher LR 1,000 mL: 20 mL/hr, IV Lidocaine 1% injectable solution: 0.1 mL, ID, Once, PRN: Other (see comment) tranexamic acid: 1,000 mg = 100 mL, 300 mL/hr, IV Piggyback, Ore Puncher tranexamic acid: 1,000 mg = 100 mL, 300 mL/hr, IV Piggyback, Ore Puncher Documented Medications Documented Aspir-Low 81 mg oral [...] (basal cell carcinoma), face / SNOMED CT 5486551242 / Confirmed Hypertension / SNOMED CT 8812526396 / Confirmed, Active Problems (2) BCC (basal cell carcinoma), face Hypertension Histories Family History: Entire family history is negative. Procedure history: Goiter (8356071). Back fusion (626200584). Chest tube insertion ([id number] eg). Comments: 06/04/2021 9:17 EDT - Elvi Barber RN left lung 1998 Inguinal hernia ([id number]). Rotator cuff (38932496). Hammer toe ([id number]). Social History Electronic Cigarette/Vaping Assessment Electronic Cigarette [...] / Management Results review ECG interpretation Plan [employer]#( A) physical status classification: [...] 06/21/2021 07:57 EDT] Rod Ann DO [facility] MAGR Intraoperative Recordon 06-21-2021 MAGR Intraoperative Record MAGR Intra-Op Record Summary Primary Physician: Enrique Rutherford DO Finalized Date/Time: 06/21/21 09:51:01 Pt. Name: ENRIQUE MIKE/Sex: 1935 MALE Med Rec #: [id number] Physician: Enrique Rutherford DO Financial #: [id number] Pt. Type: D Room/Bed: [facility] [place] Admit/Disch: 06/21/21 05:54:00 - Institution: Case Times MAGR Entry 1 Patient In Room Time 06/21/21 07:28:00 Out Room Time 06/21/21 09:43:00 Anesthesia Start Time 06/21/21 07:28:00 Stop Time 06/21/21 09:45:00 Surgery Start Time 06/21/21 08:06:00 Stop Time 06/21/21 09:37:00 Last Modified By: Brenda Constantino RN 06/21/21 09:50:58 Case Attendance MAGR Entry 1 Entry 2 Entry 3 Case Attendee Enrique Rutherford Jacquelyn RN [place]mondson VP [employer]/[facility]iel CST Role Performed Surgeon - Primary Jig And Fixture Builder Department Head Time In 06/21/21 07:28:00 06/21/21 07:28:00 06/21/21 07:28:00 Time Out 06/21/21 09:16:00 06/21/21 09:43:00 06/21/21 09:16:00 Procedure Arthroplasty Shoulder Arthroplasty Shoulder Arthroplasty Shoulder Total Reverse(Left) Total Reverse(Left) Total Reverse(Left) Last Modified By: Brenda Constantino RN, Jacquelyn RN Burns, Jacquelyn RN 06/21/21 09:43:07 06/21/21 09:43:07 06/21/21 09:43:07 Entry 4 Entry 5 Entry 6 Case Attendee Vivian Newman DanielYolis de la rosa CST, Christopher J DO [employer] Role Performed Department Head Scrub Personnel Anesthesiologist of Record Time In [...] 1 Ski (more content not included)... [facility] MAGR Intraoperative Record MAGR Intra-Op Record Summary Primary Physician: Finalized Date/Time: 06/21/21 07:33:10 Pt. Name: ENRIQUE MIKE/Sex: 1935 MALE Med Rec #: [id number] Physician: Enrique Rutherford DO Financial #: [id number] Pt. Type: D Room/Bed: / Admit/Disch: 06/21/21 [...] Klaehn, Margaret RN Role Performed Anesthesiologist of Jig And Fixture Builder Jig And Fixture Builder Record Time In 06/21/21 07:09:00 06/21/21 07:09:00 [...] Flow Ra (more content not included)... [facility] PACU Record [facility] PACU Record Summary Primary Physician: Enrique Rutherford DO Finalized Date/Time: 06/21/21 10:37:04 Pt. Name: ENRIQUE MIKE./Sex: 1935 MALE Med Rec #: [id number] Physician: Enrique Rutherford DO Financial #: [id number] Pt. Type: D Room/Bed: [facility]/ Admit/Disch: 06/21/21 05:54:00 - Institution: PACU Case Times MAGR Entry 1 In PACU I 06/21/21 09:43:00 Discharge from PACU 06/21/21 10:28:00 I Last Modified By: Isabela Soliman RN 06/21/21 10:36:28 General Comments: Pt awake and oriented. VS stable. Transferred to room 221 via bed. Finalized By: Isabela Soliman RN Document Signatures Signed By: Isabela Soliman RN 06/21/21 10:37 [facility] Nutrition Noteon 06-21-2021 Nutrition Note Pt admitted for scheduled Lt shoulder surgery. Diet already advanced to a Regular, ate 100% of lunch, No wt hx available, denied any wt changes on company doctor assessment. 06/04 pre-op labs reviewed, mildly elevated BUN noted. Pt at high nutrition risk r/t age greater than 65yr, however, no foreseeable nutrition concerns at this time. To follow. Normal [facility] Operative Report - Surgeon/P elidiajeffreyrangel 06-21-2021 Operative Report - Surgeon/Physician Preoperative diagnosis: [...] 06/21/2021 10:15 EDT] Enrique Rutherford DO [facility] Patient Handouton 06-21-[address] [...] or concerns, please call the office at [phone] -Follow up as scheduled [facility] Progress Note - Nurseon 05-0 Progress Note - Nurse reports no pain, numbness/tingling to left hand/arm, arm warm, palpable radial pulse, patient reports unable to squeeze fingers, ice continues to left shoulder, dressing clean and dry, oob up to bathroom to void, alert/orient, teds on, will continue to monitor. [Electronically Signed on: 06/21/2021 14:30 EDT] Phyllis Kasper RN [Verified on: 06/21/2021 14:30 EDT] Phyllis Kasper RN [facility] XR Shoulder 1 View Lefton XR [...] 06/21/21 4:54 pm Technologist: MARIELY BENITEZ [facility] Comment on above: Order Comment: defau lt status post shoulder replacement Coding Summaryon 06-18-2021 Coding Summary HTMLBase 64 XlirmydxLRn1gYq+PGhlY WQ+XM9JUHVkW55ysOScvB 5CN4mBXQ9MCARJEYPAEF3 EUG4wgHC5AItcL0NgynXm BpiltSCoUJ58JLs1YQV1s KusAInamI0etYHlO9j0Bf YxQJ29pI91TXynZIOeFeV 3LjZpbjsgbWFy T1iqNnXxfTQnRnl+PHRhY mxlIHdpZHRoPScxMDAlJy AwzNlwIW5bHi9eEMQmKSF vbGxhcHNlOiBj e3etGGSfQUqcQM5vgYnjK 6XnsVS3WFTae8z6Wh83fA I+DDUyCEL5mHmoZYcts97 6WfTru8qjVDH2 hGRcIGpmKNE6R09fr6C0F XYcCFDzQJR3mSD1yL0rxE hyzohqR7VkpAVmKxA3LNP 3nKHxcL7nhFvc amitlI3eOtc+I42VRU1IC ACAMR5KAhb0I6XiKmjulX I+FI98SBFxIW90qNSmjDX eo8bzwUr0HiMb JXFaAAF3lMflDTunw0IlW FEfJ86msSVdu6G6FXPlbK afiYGdNqMwxQD3lU0yMHu cgptnb6tougur Xjxvw4tfqq60sD33P34wK IslKHYxSUS8YKEhGOIlqM ipfd8kbM9yXk1+PMhyo9h no8yydKl9XfJx FHTulcWdeUwjYWG7g4GmZ b25J3AiwGaii6NdKlk8mj 25yPIjo0Q6eOG3BRtsSAJ bnJ8cNYqmXvC1 GZBfBjLuzH43zZNbZCnlK j9apThudJkrKJ9xQQXdqv liQWGdlB1qRYTyfBRqsDb eJV3hZUAffvcs b099MfKeYSG1LZZcaFEyB 5AuzE7sYcNuVTYiIRExC0 MitQNeVOgtJ161AWnmDsK 6KZJszdMmY0Fd KZAjkBuvKpG0t0K6Bj5Ma 7NujwgyYSM0PPqlATI3Bu O2YwQjSmW5G5JwEvn4QNW rwPklYM6uK7Jk DRYmgodfuswcqYL5NOUmR MGdoL15dWRpDQbeQl0rd1 S2z507YMZdMHEtoK44Zw5 udDogMTBwdCBU vS2oyfudy1ppssbhAvGfW KAcQQr1ECv1QONjeKeoOd VsTGC5MyR3UZX0rERuyO6 lpLkivgzecL5f Oyc+V45uyG4bKJU1ROT5t pswGCZrxfSmDF21ZE88B1 RyPjwvdGFibGU+PGRpdiB ngGwvGF3iNgOg e8mox4InNFnbV5IfPEFgX ZhyEol4LJDwVDI5nXT9eS 0mEFTdIKnud2J3sWI2A4O dwwQrwm7va9uc NGAgARzxZ56oqDHqn5S7C AGimTX3SUPpyQkwSrVscC 93Oyc+JQRxpLovy6TfRlr we6qkt5htzXh1 VrPzTVDvvcGqjUuuRUV8l 0MdPx26P95tZMcuNTIdLB WzDXPpBYRegFekbx4iuQ9 wIi8+PGNvbCB3 iWL1gY3uITPuDwL1UZbbH 804OxPoaGQaQrang2wgk0 qvjCq1ZtUiRZIsjpCzxEh mWWW6d5MaOg38 X49vGMqzLTEkLINxJAKaW GMnbKdksa5zxX0eDy1+PC 1lg5hlpr34hP71yEV+PHR kPFB8iJyrQDjn JPFzjN4ePMqrExC8BCOnT iLsxS60gQEbHEjxGj4rnI wacCthYF0mFJEyumiwm27 1SxVgm9ghSFTe kZEtUManZWA4J17dy1H4P JFiARNnXLV7qXF0kL7maC lnbjogbGVmdDsgdmVydGl qGXeuYOnwK177 IHRvcDsnPlBhdGllbnQgT mIbHPe0D0EqHlw1BNHiaA fsBA9qtSWoMVvoOd6dlNq wiTqjLS7uKTLl cwycq429IaHmq1oaHKFyr YFbCMgoEYZ0C60rx2T6ES FdIIUcIGI9vWP1wS3gyXo nbjogbGVmdDsg wsCglMkoMXigBGtpZ412A HRvcDsnPkJpcnRoIERhdG X1RT44TA61qCRan2W6dAK 5H7DiKAOibcvb nhpesYZ4MABvFUQigE97P t9nrFdeSl4wBTZzFXE6OK OxcOOtX4DixY3tFtFfORR qVKDlP3SttYGw BVylP814UQwdGtB3EFJzv iGpZ5XyLFUwvMbiVaY9c9 Z0Xq9KV1P6PM15GC00kFI nm6M2tXM5S7Pv TYDyyuatvvgywXS5NJXdK FTwuM07Sa4nmEikXm5nBB AbCVH2NLPauSChA0FtbF7 yOiAjMDAwMDAw O6YzdFPeJSafD697RZkiV gW2YUIvlnZjI4EpAWRqrW waTrP0o8L9Zy7ZBKg1FH5 5YG73hOXpg0B1 jTA4R3PmMILlxrrxdafmr OM4TDWwZXDpcM48Se9xgA bzFd9vXQNlJVW1KOIyrDM tV3DcqR6gRhRt LQLqOMYpS3GhnEInCWkwA 944ZIvfWeO0YKVpdeXkH6 SqWTNopKonOfV3d6Y4Ge1 XVRWqXQ97PGI1 fKR8WP70BR85K8XkTvujz GFibGU+PHRhYmxlIHdpZH RoPScxMDAlJyBzdHlsZT0 tGq0lCWNwMUIm lEjsaQKrIaOfn0jpZEJkV NotBM9heThrM6MtcXS7QT Kpn2n0Ld87U16uB7AwoPS +BOBpgEF7mNF4 tK7wXmSoReJ1LKcxD264F yPqfZMhIolnj3stq6ysvP t9UnD6UXSyacEufXgmQCI 4h6VzJx09T02p IHdpZHRoPSIxNSUiIHZhb Vrtoy5hsG4vLg3+PGNvbC D9cCZ9jX4aAbBrKqF7PDx qD419BcZelNCp Voigm6ndl6nswIv3PsBpZ NCilgLzjIdxEFN1z6TuRu 50C4KymBbbn5SmIzi1kz5 3cXYcw9M5uGX8 F5OvQQSbrwewwUIxlDnsW W3pAJGrfunfRPGbeT0hQL NpW3f7HiUaCrC9SYvvK5P ccbN3CZCsjZIk KTloPUG6G59zr2N2LNDvA JQePRG7rXR5cY4vuTdmlr ogbGVmdDsgdmVydGljYWw mWIguG757GOYt lShvYTCxjX5fYLDppBBra FfgPQ1rTRJczfkoSlEPYz SuGCqWEJYGOXW9N0VxVul 0OKUavIyxES8b jDGyBGwpUj3wlUyyaByiO O8gYKRriurvMNEwzE0uUH PirILyiNscCX4pYQOzobr px353OaDwLPJ8 VCWktOKkL4YhbW7jHcAoS RFmERBxU0PwmBLwGPoeS7 20JOiaZbR9FEWotuYaF1S sLWFsaWduOiB0 y7C3Zb0nWf1sGE4dMBE2X Z46WW18yACjs4I7kPV8C8 QkJNIemdcapnfzvRK0VOK rNNAueG16tCCf WVxiEm0xr6B5h734XPQcS TIwwC21Vy1gbRtaEFYwaP RLaZ3qjrzfw0ddkideBiF bCOZpLFk6TJm9 YBRxdNjzFuJiKWU5RhG9B KP6zYZauS2ebZeccuylvD 9wOyc+PBUrPZZwbsD2Z1O uUos0MDQazZqi VT3fdXOiBNbcBe2tmDtih EeeUZ5cAYHltrftMLEqhG 9oMVFfpCPsqNlgCM2aKRT npnpki991VkTz FRB0QEUylOCvZ5DhhV2eH gFvFSWsIQKfK6VagYMyJH vjD279VOhzSdH0WKOhfzF bD7IuQCKzoAzp VlY6f5N5Ww7ZLNfIVR39E D68gUWnn0X1aLA2Q2SnJE BuxrpaayzmgGJ7VVHaDWO lzN04sVBvNNcw Xf5rd6R0z490PTNdENQyl U07Mi9xiWvzICRspTZTgN 2domaof8citgmrOuOrVYQ lFKd2JIf4PEJm bIvtMbEwJPI1UwW6XKC5u ISpgF3oiXaextzknT6uIf c+N1L4W4WqCegrbPW+PC9 0VGKuED48vGUx bKDni1rqsPx8IbKuFFJyQ MN8jJdsCCczl7EwADGkQ8 1kgKOvl5Q5JJAkcKqcgWG wSkKlyXB6xV6n ZNollpxrr2akvfcjSmgzp 5whtw24pW97P07xUCpfKW RoPSIzMCUiIHZhbGlnbj0 bfC9gDe1+PGNv gDP2uIS4mS8hLcJzRhB6V SfnB011ZrJwzVAqKpzpz8 dsg8jhwUk0AlUpLPAtebO rzSdeNWP3v7Eq Qu58L81eHDhtJMVuQMVrG MUrVMZqeEnrcc9quW6sTj 8+HB3bf4dkxo17eJ96sJB +FLQyIBK9aRqf QYybOHWdtO5oTSxqImQ9P WEkDjUslL01bORnRQlfIm 9ojQssjIcvEI0tXIKnsif az438XvTmt2ad TOPdsTQcMAtgMTE9O54dj 9H4JRSnXIOiJDY3wZF3fQ 1hbGlnbjogbGVmdDsgdmV ydGljYWwtYWxp O323QULuoNtoDgOspHVkJ 0lonuEDXJ5tNvimxBH+PH ZgHZS9iTwcAAgqJXDxmA4 nWAZvW6l7MfZz SgL6BPgwA6DeqbN0ZRDmm DEoFCJawRZRaR3sbozlc6 mcphwkAxRoELXkHAj1XZa 0LWFsaWduOiBs VBZ1OeX3IDL8sPDttA1yq OooguadbA5ePwx+RklOOj wvdGQ+GLGsBCP1zQfaNPu nRHOyeK4pNHZz H9f8QqQaXrK1BSfhA7Rzq cK8GGTzhJQbYBFvbFJIuD 8ieuzem8mxfpqrIuGbHRW iQYm3QWu6YAJi sMsdCkUfCDI6BiR2RCA4e XCavV1udXvwssuxtP3vVo c+TVJOOjwvdGQ+PHRkIHN 0eWxlPSdwYWRk rU6hWARqJ0i9KbZnUmI0G ZjjE8SiqlA2ZULvkERtBD YihCNNsP8myfrrg8jurib gIzAwMDAwMDt0 GVv7SXQyxEuyDqYjDIX3H hH6MUW2aUKyaL9qsDhymz qqiI6sXjb+GYC6OZH6HP8 0VP37A8RxQgvx dGFibGU+PHRhYmxlIHdpZ HRoPScxMDAlJyBzdHlsZT 9kBe5zTFLoBYGemGqybMC oTcZna0lnJADb ZTs (more content not included)... [facility] Progress Note - Nurseon 05-22 Progress Note - Nurse Pre-op call done, instructed to arrive @ 0600 on 06-21-21, NPO after midnight-verbalized understanding. [Electronically Signed on: 06/18/2021 09:26 EDT] Ayah Gracia RN [Verified on: 06/18/2021 09:26 EDT] Ayah Gracia RN [facility] 2019 Novel Coronavirus (CoVI D-19), BART LCon 06-17-2021 SARS-CoV-2 (COVID-19) RNA BART+probe Ql (Unsp spec) Not detected Invalid Interpretation Code Not Detected [facility] Comment on above: Order Comment: [id number] Result Comment: This nucleic acid amplification test was developed and its performance characteristics determined by [employer]. Nucleic acid amplification tests include RT- PCR [...] detected) result in this assay. Performed At: [address] [id number] Suzanne Durham PhD Ph:[phone] Performed By: #### 6 [id number] #### [facility] (DEFAULT) [address] [place] [address] Advance Directive Documentso n 06-07-2021 Advance Directive Documents [id number] [facility] Coding Summaryon 06-07-2021 Coding Summary HTMLBase 64 CujdpazqDFc0kBv+PGhlY WQ+ID7ALTVwU82gbXNdpA 0AE8uWIR6TRPESTGPMNZ0 DUR8blJG6QKciI7ZqdkAk OlwndPCgWT40SAa6JNF1z NyrZWstmK1vtDCjU2q9Jr FxQA60kG52ZXeoUQVwZjL 3LjZpbjsgbWFy X9iaDpNznFBsMks+PHRhY mxlIHdpZHRoPScxMDAlJy MxxEtlYN2oYg2lHSXfSGC vbGxhcHNlOiBj y4elNFPrBUflMK2uoJuvO 8FitTJ6CRJui0e3Rf98wH I+FSMwNGN8sMqaAQbzl10 3HfPkg5aqKDF6 aLKxFSyeRYS0C57ap9D9K DSmELGtDYM4wMQ0rT6paI ewybuiO1TzuNYkQkF5CZR 0cBUchS7veDqr zrxzwQ1hMor+E77MRZ1HU LHAQX6FQsb6Z7QtUopacT I+XX13IBNfAU36wJOsfQI ei7sawNo3IsMn YKObVMB3bFlpUFfvl4AoP DArJ95wmVYta3V7MEDhdC lsvWFtKwYykJV5yA0lWIy xxuqwc7qekopz Wtzfx1spmb18qC58Y82jH MvtCLLdZYJ8KUShHADcxT hrae5gcF0vSd7+GRcza9d qu7mrdLn1OfPn EKSrqgDovKtoZYN7k8HvJ u11K5NspUfax5HiSft6se 78fFVxf7V5vAP0QLgpHHA foG5jYFcaPeZ1 LRAaFpUleV10tAIdCOthP i2fsHblhQmoNE5zMAVmwh nqBHWeoG5pJFZevNYppRk oCF3uNVMbndlj q438MmVtKIU8QOYdzACjV 5OlvG0hXaGaREXrDLWvK1 MpwQHpCCedU555SMwmSgC 9UNDofgBeE6Hz YAOsiHkuCxF8l2V9Hp4Cv 3XazfkcTZI6HRvvJKZ7Pr A1LoNgYeX3K4NfSzx1RFW cjMvjCQ7uW8Rv NKCwckbxsvdukWY8KDDhQ RCgyC04xVYgIBmdUp3ko6 F0w023HYDaGZZbmO78Tf4 udDogMTBwdCBU vO2hllhyc1bkhdbxSuLvD BSlPXw2JMs9TINtpNuvNr EfIHQ0McS9VVS9rPOrpR1 ppAikccbpaC4y Oyc+M63byB1dODH7TGY2c telXTQqbaPsKT98BW60P3 RyPjwvdGFibGU+PGRpdiB tdZouML0uRjOl z0qrf9KtGJlnK7WtDZWoN TnuKdp5LSMcTJN5vSI3hV 5oANXhREcov0K1cGI5O9V nwmQufu2wi6ri JUPsQQkkE18gqSLzc0R0E OUbcIO1XYWheEcgUyBygT 93Oyc+YHYurXhyu1PaXjk eo0wkp8dnkKm6 YpGjYATtptHsvIevXRK5j 2XuJk23H25eZYcdNKNdYP OiRMQxHIAuqRyvlm4bbU6 wIi8+PGNvbCB3 tMA2kP3qCCXxVqS2MKlwJ 872ShGqkMMsMwbqd1xbl5 pwnVm7KoWuWXKjhnIotJn hHVT1l3YhYn02 D72lYXeqSMFpOTYaGOQeN HZfbBksoa9oxH8kSv9+PC 9ey1rovf23nD58tMF+PHR oQIP0gGnvOUdj QARpnF9tGBkbEpQ4ZIUsD qUdnT15lKHwMImaLf4xuH dcuJcwJZ4dAFRilajeg72 1QrFfg4aoINRb gWZuUUyuERF4K60rm5H9I MNeVGOvMFL1gQS6iZ0bvT lnbjogbGVmdDsgdmVydGl dDVrzTFtoB037 IHRvcDsnPlBhdGllbnQgT dSoQTg9Z6EuHne1ZAXlcB rtAZ2irSNjQVymGi4wzMm ihLuwTJ6nRIYu iulpo155WlTwf1ldXDHpm GIbLKncBBL5Q96pd4M4OV KnPRZlTLJ6gSQ1fJ6bjKk nbjogbGVmdDsg bdUmgCmiORztVDpoK580F HRvcDsnPkJpcnRoIERhdG V3LO56IO96wVZop7I3tAB 0H5DtOEStnpnx yjbawGN2SKNfCLOkzD12H o3frXnrVn2kGAZbOBP1WJ GhbWBzV9AwaI2vPoNeGOO gCDZdG3KamPAn PVqkK388YEyvSrL4YSOzz tCgJ8IfVROpbEesMhK9m5 L9Ef4EA8M4PW08XT98tJP yh5C0oLZ0F2Zx MIAdqyczgysvyUI2OFIpE EMgvU59Yx2jdAdbCi2fOK CaLSX5ZINzdVVzW9CyqT9 yOiAjMDAwMDAw M9JmxTNjFXdwD112EThwV wZ7ETXzfnLfK2RpSGLmaD biKvB7b6Z7Ap4VQGx0BG6 4PK17oCDza3X7 oBQ9W1XdYYSlmgrnlndxk LZ5CMOmQFVjzF87Tp7qkF ziRd0wQYTgWDF6GUIjaCH rF1BhrM0fBwUi XTHzJWMnF0NeaWRgIPvsN 019ICklQcT7FCLogoBtF6 ViGPSbiLpsBcM5g0L4Hm1 SMJMiAZ24ZCK2 oHP1OY21EO50N9HxYvofy GFibGU+PHRhYmxlIHdpZH RoPScxMDAlJyBzdHlsZT0 gSi2dTRZnNANy hWpuoOAvReAhv8ttKYElT TmfCF0smLvnE3RpiGW0PR Rlu6c7Nn07M46pC2AsyNT +SVLqePK0sPY6 aE3rVkQtQoJ2WHjrO107L sFpjSBnVurlg6uln6tgiR l1UrH5RBBkocGhwDikQGJ 6h4IkDv94U31p IHdpZHRoPSIxNSUiIHZhb Yozup0ryK3jJo4+PGNvbC Y6oOL5iZ2tYiTfWpA3NTl lZ014RnMgyFKa Lrlmg8msj2dqmPh5ZwNyZ HHwijOgdZfyYNC9y4OeLk 28G9CjkRgap5SdDui8pk6 6xPSua9S1jDD6 V4SaMFUcmlxogUDwfOlmU S6zMJCcnyyjKIPppB3cYI JuG8y0OsTwVhS5GThyK6X famI2KTGdgFQf AYbjVGS4L14rw0U4ENSwD MKyJHW9kGE6uL8lxQqcib ogbGVmdDsgdmVydGljYWw jSGypI508FSWz gOvjPKXlvW2dIOBroQEuf YebFY3cJSJleshqVlEGJc QlHXjGHNAOCGQ1B3PoYgw 1FCQtuNdwDD7g pSWpIKrfSf7ggJnljUulN B1rTHRyecehBOQkjD5pTQ WduDYltJnfVV6tXKWlery ni166LkFhILM5 CTJsbVTyL1JiaJ8qUdLkT IUtJGMhI0LwkFSjIOfcP3 02VYhvDoQ0XVIvslNdW3Z sLWFsaWduOiB0 h0K2Su6kPk7iLA0zFTR0W E90ZK84uKKdq4G7cTR1Z9 FvQERumjkybqtmyRZ3KMP kQOHpbV31tXYv LQfxXr7fi5K7x404MVAlV UDlbI72Ax9wdBmvISGynW FDoA5wtlwwx2cukkpuTcG xYVPdNDf1TVg9 HZGzhWoeMhVwECO5XcV3T NW7jEXniS7ftEbivbbkbU 9wOyc+WCWkGCHwqkZ3C3D ePdf9VCAtnGxx XQ1ckDHyBLkhYs8ezCgjh YndYZ8sKYMlyjgwVOJeaG 1cONDlbGPtcXzhVC9yAPG gwnmwk253KaHb KLZ5BVSsxGZrE3AbwX7sM qSeVHHdZOGcD8XooJNnSA tmK309YDmsRwU8ZNYmacS iT6TeVLZnmIpk XiS4i3A9Pb5OZJdVYJ05G V81mEEzu7U7uHX3V0LySZ RhquwgdiozvBY2QARnNIE paK41gPZpYWae Bw8dc4E2l020HVYnCSPll Z87At8ukJwnRALaeTRMfR 1xinjzj6jstmlmAcIjOUA dYUu2CXw0MQBo kMuxJlNkHRD3SuW4WJP9p SNmgD6haTdiszwseF1uWd c+I4C7V2RvMzhslNH+PC9 8KEVbVY76uHMx wDImh9bugWm7ZuJwHAYpI OB3jIwcNPcat6PzOVNhC8 1hwBWbo7V6SRKtkHoosPD dBkAayNS9qM4f YGpzwexrz0xqcdwtTwtgi 5hgjy85bO33B93nZOjsOO RoPSIzMCUiIHZhbGlnbj0 noH6uRf4+PGNv zJE0cPL8sO5rCyWpRnN2Y MkrG495UxFgdUQzMghjc0 ays8xtcEe7UeYwFPPepdQ bbSmyVXI5g4Bi Kq90D75sUBteHUNuPPJzQ SOlOJFwqBodhb0lmN6tSf 8+SO8jf8wssc92lO17iQW +FAExLSZ4gNnn XAmnJNRpvA4qGWhsAdB2P COjJcGpfB42aZNrDEdjSw 6waSlcaBmgAL3qISPziou ut218CxTfe2rr CJJxqQZmMAemQPS3M53rt 9Q6QHDuTFQvVKV4iSS7iB 1hbGlnbjogbGVmdDsgdmV ydGljYWwtYWxp J018KASftEtcHrXlfQAmN 3uvpwNWQF1sQdfnaEB+PH XmFSF9tMcfVTouIFLrgY2 wZWQhW9v0TnKj PdZ9JMsiB6NhaoU3FWGgc CCoWZSmpBXLcS5vekavi1 rhelfjEjXnSHLzRWl4AGi 0LWFsaWduOiBs ASL5MbX6SYB9bVIagY3dq VooebeemY9tDny+RklOOj wvdGQ+CRIpIIM0jSihNWk fYEDywZ3jPZMd Y1i3EtTePuF9AMveB2Wlc dL5CSIlvHXwLXWovFSCnF 4exyypl4wzmwuoNdYvWFZ xPJd6YQg3VEVz tWwlYzDaZOL6XpM8ZVN9g KXolD4nfBhpuvttxK9zCm c+TVJOOjwvdGQ+PHRkIHN 0eWxlPSdwYWRk tA0nXNChU8c6YdDjHmS1I HycF8NdvzC1IAPadONoQM XqzINQeK9vqapvc6vssbs gIzAwMDAwMDt0 WGs3PLNusAlhUoTtMCS9U cZ8BTU5mLOtrY5ftNbcgw mtyZ2jGlk+VQZ3RWJ5VB3 7LR47K4WiMesy dGFibGU+PHRhYmxlIHdpZ HRoPScxMDAlJyBzdHlsZT 0wOx4hCYShVHUglAfirPV qLoFvh7qoRAVa ZTs (more content not included)... [facility] Progress Note - Nurseon 05-21 Progress Note - Nurse Chart reviewed by Dr. Garcia and no new orders received. [Electronically Signed on: 06/07/2021 15:13 EDT] Isabela Soliman RN [Verified on: 06/07/2021 15:13 EDT] Isabela Soliman RN [facility] Provider Orderson 06-07-2021 Provider Orders [id number] [facility] C MRSA Screenon 06-05-2021 C MRSA Screen Negative [facility] Comment on above: Performed By: #### 1 [id number] ####[facility] (DEFAULT)[address] [place] [address] .Auto Diff 1on 06-04-2021 Auto [place] % 13 % High 12 [facility] Comment on above: Performed By: #### 1 [id number], [id number], [id number] ####[facility] (DEFAULT)[address] [place] [address] Baso Abs# 0.0 x10 Normal 0.0-0.2 [facility] Comment on above: Performed By: #### 1 [id number], [id number], [id number] ####[facility] (DEFAULT)[address] [place] [address] Basophils/100 WBC (Bld) 0.8 % Normal 0.2-2.0 [facility] Comment on above: Performed By: #### 1 [id number], [id number], [id number] ####[facility] (DEFAULT)[address] [place] [address] 34902 Eos Abs# 0.1 x10 Normal 0.0-0.4 [facility] Comment on above: Performed By: #### 1 [id number], [id number], [id number] ####[facility] (DEFAULT)[address] [place] [address] Eosinophils/100 WBC (Bld) 2.3 % Normal 0.9-4.0 [facility] Comment on above: Performed By: #### 1 [id number], [id number], [id number] ####[facility] (DEFAULT)[address] [place] [address] Lymph Abs# 1.4 x10 Normal 1.3-2.9 [facility] Comment on above: Performed By: #### 1 [id number], [id number], [id number] ####[facility] (DEFAULT)[address] [place] [address] Lymphocytes/100 WBC (Bld) 28 % Normal 14-48 [facility] Comment on above: Performed By: #### 1 [id number], [id number], [id number] ####[facility] (DEFAULT)[address] [place] [address] [place] Abs# 0.6 x10 Normal 0.0-0.8 [facility] Comment on above: Performed By: #### 1 [id number], [id number], [id number] ####[facility] (DEFAULT)[address] [place] [address] Neut Abs# 2.7 x10 Normal 1.5-9.2 [facility] Comment on above: Performed By: #### 1 [id number], [id number], [id number] ####[facility] (DEFAULT)[address] [place] [address] 71260 Neutrophils/100 WBC (Bld) 55 % Normal 44-88 [facility] Comment on above: Performed By: #### 1 [id number], [id number], [id number] ####[facility] (DEFAULT)[address] [place] [address] [facility] Standardon 06-04-2021 eGFR Non AA 58 mL/min/1.73m2 Invalid Interpretation Code [facility] Comment on above: Performed By: #### 1 [id number], [id number], [id number] ####[facility] (DEFAULT)[address] [place] [address] 84749 eGFR AA >60 Invalid Interpretation Code [facility] Comment on above: Result Comment: Statistical Modeler martha Kidney disease could be indicated at eGFRs of less than 60 ml/min/1.73m2. Kidney Failure is indicated at less than 15 ml/min/1.73m2 Performed By: #### 1 [id number], [id number], [id number] ####[facility] (DEFAULT)[address] [place] [address] 17325 Anion gap [Moles/Vol] 18.0 mmol/L Normal 5.0-19.0 [facility] Comment on above: Performed By: #### 1 [id number], [id number], [id number] ####[facility] (DEFAULT)[address] [place] [address] 15963 Calcium [Mass/Vol] 9.8 mg/dL Normal 8.9-10.3 [facility] Comment on above: Performed By: #### 1 [id number], [id number], [id number] ####[facility] (DEFAULT)[address] [place] [address] 86514 Chloride [Moles/Vol] 96 mmol/L Low 101-111 [facility] Comment on above: Performed By: #### 1 [id number], [id number], [id number] ####[facility] (DEFAULT)[address] [place] [address] 61465 CO2 [Moles/Vol] 27 mmol/L Normal 21-32 [facility] Comment on above: Performed By: #### 1 [id number], [id number], [id number] ####[facility] (DEFAULT)[address] [place] [address] 37881 Creatinine [Mass/Vol] 1.19 mg/dL Normal 0.90-1.30 [facility] Comment on above: Performed By: #### 1 [id number], [id number], [id number] ####[facility] (DEFAULT)[address] [place] [address] 51648 Glucose [Mass/Vol] 93.0 mg/dL Normal 74.0-118.0 [facility] Comment on above: Performed By: #### 1 [id number], [id number], [id number] ####[facility] (DEFAULT)[address] [place] [address] 41391 Osmolality 277 mOsm/L Invalid Interpretation Code [facility] Comment on above: Performed By: #### 1 [id number], [id number], [id number] ####[facility] (DEFAULT)[address] [place] [address] 59177 Potassium [Moles/Vol] 4.5 mmol/L Normal 3.6-5.1 [facility] Comment on above: Performed By: #### 1 [id number], [id number], [id number] ####[facility] (DEFAULT)[address] [place] [address] 96865 Sodium [Moles/Vol] 136.0 mmol/L Normal 136.0-144.0 [facility] Comment on above: Performed By: #### 1 [id number], [id number], [id number] ####[facility] (DEFAULT)[address] [place] [address] 46616 Urea nitrogen [Mass/Vol] 27 mg/dL High 8-26 [facility] Comment on above: Performed By: #### 1 [id number], [id number], [id number] ####[facility] (DEFAULT)[address] [place] [address] 31757 Urea nitrogen/Creatinine [Mass ratio] 23.0 mg/mg High 4.6-16.2 [facility] Comment on above: Performed By: #### 1 [id number], [id number], [id number] ####[facility] (DEFAULT)[address] [place] [address] 47063 CBC w/ Auto Diffon 2 Erythrocyte distribution width (RBC) [Ratio] 12.4 % Normal 11.5-15.0 [facility] Comment on above: Performed By: #### 1 [id number], [id number], [id number] #### [facility] (DEFAULT) [address] [place] [address] 68525 Hematocrit (Bld) [Volume fraction] 45.9 % Normal 34.8-51.9 [facility] Comment on above: Performed By: #### 1 [id number], [id number] #### [facility] (DEFAULT) [address] [place] [address] 95447 Hemoglobin (Bld) [Mass/Vol] 14.8 g/dL Normal 11.8-17.7 [facility] Comment on above: Performed By: #### 1 [id number], [id number], [id number] #### [facility] (DEFAULT) [address] [place] [address] Instr WBC 4.8 x10 Invalid Interpretation Code [facility] Comment on above: Performed By: #### 1 [id number], [id number] #### [facility] (DEFAULT) [address] [place] [address] 56896 Man Diff? Auto Normal [facility] Comment on above: Performed By: #### 1 [id number], [id number], [id number] #### [facility] (DEFAULT) [address] [place] [address] 86503 MCH (RBC) [Entitic mass] 32 pg Normal 24-34 [facility] Comment on above: Performed By: #### 1 [id number], [id number] #### [facility] (DEFAULT) [address] [place] [address] 33939 MCHC (RBC) [Mass/Vol] 32 g/dL Normal 26-37 [facility] Comment on above: Performed By: #### 1 [id number], [id number] #### [facility] (DEFAULT) [address] [place] [address] 34686 MCV (RBC) [Entitic vol] 98 fL Normal 81-100 [facility] Comment on above: Performed By: #### 1 [id number], [id number] #### [facility] (DEFAULT) [address] [place] [address] 41075 Platelet 221 x10 Normal 138-427 [facility] Comment on above: Performed By: #### 1 [id number], [id number], [id number] #### [facility] (DEFAULT) [address] [place] [address] 96744 Platelet mean volume (Bld) [Entitic vol] 8.6 fL Normal 6.3-10.2 [facility] Comment on above: Performed By: #### 1 [id number], [id number], [id number] #### [facility] (DEFAULT) [address] [place] [address] 51686 RBC 4.68 x10 Normal 3.70-5.30 [facility] Comment on above: Performed By: #### 1 [id number], [id number], [id number] #### [facility] (DEFAULT) [address] [place] [address] 36606 WBC 4.8 x10 Normal 3.5-10.5 [facility] Comment on above: Performed By: #### 1 [id number], [id number], [id number] #### [facility] (DEFAULT) [address] [place] [address] 53323 UA w Culture if Ind Standard on 06-04-2021 Breakpoint UA [facility] Comment on above: Performed By: #### 1 [id number] ####[facility] (DEFAULT)[address] [place] [address] 71320 Color (U) Yellow [facility] Comment on above: Performed By: #### 1 [id number] ####[facility] (DEFAULT)[address] [place] [address] 95791 Culture? No [facility] Comment on above: Performed By: #### 1 [id number] ####[facility] (DEFAULT)[address] [place] [address] 46831 Glucose (U) [Mass/Vol] Negative Normal [facility] Comment on above: Performed By: #### 1 [id number] ####[facility] (DEFAULT)[address] [place] [address] 60868 Ketones Ql (U) Negative Normal [facility] Comment on above: Performed By: #### 1 [id number] ####[facility] (DEFAULT)[address] [place] [address] Micro? Not Indicated Normal [facility] Comment on above: Performed By: #### 1 [id number] ####[facility] (DEFAULT)[address] [place] [address] UA Bilirubin Negative Normal [facility] Comment on above: Performed By: #### 1 [id number] ####[facility] (DEFAULT)[address] [place] [address] UA Blood Negative Normal NEGATIVE [facility] Comment on above: Performed By: #### 1 [id number] ####[facility] (DEFAULT)[address] [place] [address] 27399 UA Clarity CLEAR Normal CLEAR [facility] Comment on above: Performed By: #### 1 [id number] ####[facility] (DEFAULT)[address] [place] [address] 71169 UA Leuk Est Negative Normal NEGATIVE [facility] Comment on above: Performed By: #### 1 [id number] ####[facility] (DEFAULT)[address] [place] [address] UA Nitrite Negative Normal NEGATIVE [facility] Comment on above: Performed By: #### 1 [id number] ####[facility] (DEFAULT)[address] [place] [address] 65187 UA pH 6.0 Normal 5-8 [facility] Comment on above: Performed By: #### 1 [id number] ####[facility] (DEFAULT)[address] [place] [address] 45214 UA Protein Negative Normal NEGATIVE [facility] Comment on above: Performed By: #### 1 [id number] ####[facility] (DEFAULT)[address] [place] [address] 21595 UA Spec Grav 1.020 Normal 1.001-1.035 [facility] Comment on above: Performed By: #### 1 [id number] ####[facility] (DEFAULT)[address] [place] [address] 05644 UA Urobilinogen 0.2 mg/dL Normal 0.2-1.0 [facility] Comment on above: Performed By: #### 1 [id number] ####[facility] (DEFAULT)[address] [place] [address] Urine Source Clean Catch Normal [facility] Comment on above: Performed By: #### 1 [id number] ####[facility] (DEFAULT)[address] [place] [address] Vital Signs Date Time Vital Sign Value Performing Clinician Aminata ndiaye 01-09-2024 08:28-0500 Body height 175.3 cm Chata Hemmer PA Work Phone: [facility] 01-09-2024 08:28-0500 Body mass index (BMI) [Ratio] 24.04 kg/m2 Chata Hemmer PA Work Phone: [facility] 01-09-2024 08:28-0500 Body weight 73.85 kg Chata Hemmer PA Work Phone: [facility] 01-09-2024 08:28-0500 Diastolic blood pressure 72 mm[Hg] Chata Hemmer PA Work Phone: [facility] 01-09-2024 08:28-0500 Heart rate 104 /min Chata Hemmer PA Work Phone: [facility] 01-09-2024 08:28-0500 Respiratory rate 16 /min Chata Hemmer PA Work Phone: [facility] 01-09-2024 08:28-0500 SaO2% (BldA) [Mass fraction] 92 % Chata Hemmer PA Work Phone: [facility] 01-09-2024 08:28-0500 Systolic blood pressure 100 mm[Hg] Chata Hemmer PA Work Phone: [facility] 12-26-2023 08:30-0500 Body height 175.3 cm Chata Hemmer PA Work Phone: [facility] 12-26-2023 08:30-0500 Body mass index (BMI) [Ratio] 24.54 kg/m2 Chata Hemmer PA Work Phone: [facility] 12-26-2023 08:30-0500 Body weight 75.39 kg Chata Hemmer PA Work Phone: [facility] 12-26-2023 08:30-0500 Diastolic blood pressure 68 mm[Hg] Chata Hemmer PA Work Phone: [facility] 12-26-2023 08:30-0500 Heart rate 68 /min Chata Hemmer PA Work Phone: [facility] 12-26-2023 08:30-0500 Respiratory rate 16 /min Chata Hemmer PA Work Phone: [facility] 12-26-2023 08:30-0500 SaO2% (BldA) [Mass fraction] 91 % Chata Hemmer PA Work Phone: [facility] 12-26-2023 08:30-0500 Systolic blood pressure 122 mm[Hg] Chata Hemmer PA Work Phone: [facility] Healthcare Encounters Encounter Date Encounter Type Care Provider Facility Start: 01-16-2024 End: 01-16-2024 ambulatory LITA SILVESTRE Not Available Start: 01-16-2024 End: 01-16-2024 Bamboo flowsheet Lita Silvestre [employer] Work Phone: [facility] Start: 01-16-2024 End: 01-16-2024 Bamboo flowsheet Lita Silvestre [employer] Work Phone: [facility] Start: 01-16-2024 End: 01-16-2024 ambulatory LITA SILVESTRE Not Available Start: 01-16-2024 End: 01-16-2024 Office outpatient visit 10 minutes Lita Silvestre [employer] Work Phone: [facility] Comment on above: Closed fracture of m ultiple pubic rami, right, with routine healing, subsequent encounter Start: 01-09-2024 End: 01-09-2024 Bamboo flowsheet Chata [...] Dx) Start: 01-09-2024 End: 01-09-2024 ambulatory CHATA Blas HEMMER Not Available Start: 01-01-2024 End: 01-01-2024 ambulatory Alberto Pacheco MD Facility:[facility] Start: 12-26-2023 End: 12-26-2023 Bamboo flowsheet Chata Jarvis PA Work Phone: [facility] Start: 12-26-2023 End: 12-26-2023 Bamboo flowsheet Chata Jarvis PA Work Phone: [facility] Start: 12-26-2023 End: 12-26-2023 Office outpatient visit 15 minutes Chata Jarvis PA Work Phone: [facility] Comment on above: Pressure ulcer of co ccygeal region, stage 2 (CMS/HCC) (Primary Dx); Need for vaccination Start: 12-26-2023 End: 12-26-2023 ambulatory CHATA M HEMISAIAS Not Available Start: 12-25-2023 End: 12-26-2023 Telephone encounter Enrique Rutherford DO Work Phone: [facility] Comment on above: question Start: 12-25-2023 End: 12-25-2023 ambulatory Alberto Pacheco MD Facility:[facility] Start: 12-19-2023 End: 12-19-2023 Bamboo flowstita Silvestre [employer] Work Phone: [facility] Start: 12-19-2023 End: 12-19-2023 Bamboo denton Silvestre [employer] Work Phone: [facility] Start: 12-19-2023 End: 12-19-2023 Office outpatient visit 15 minutes Lita Silvestre NP Work Phone: [facility] Comment on above: Closed fracture of m ultiple pubic rami, right, with routine healing, subsequent encounter (Primary Dx); Closed nondisplaced fracture of medial wall of left acetabulum with routine healing, subsequent encounter; Left-sided low back pain with left-sided sciatica, unspecified chronicity Start: 12-19-2023 End: 12-19-2023 ambulatory LITA SILVESTRE Not Available Start: 11-23-2023 End: 11-23-2023 Bamboo flowsheet Lita Silvestre [employer] Work Phone: [facility] Start: 11-23-2023 End: 11-23-2023 Bamboo flowsheet Lita Silvestre NP Work Phone: [facility] Start: 11-23-2023 End: 11-23-2023 Office outpatient visit 10 minutes Lita Silvestre NP Work Phone: [facility] Comment on above: Closed fracture of m ultiple pubic rami, right, with routine healing, subsequent encounter; Closed nondisplaced fracture of medial wall of left acetabulum with routine healing, subsequent encounter Start: 11-23-2023 End: 11-23-2023 ambulatory LITA SILVESTRE Not Available Start: 11-09-2023 End: 11-09-2023 ambulatory LITA SILVESTRE Not Available Start: 11-06-2023 End: 11-07-2023 Emergency department patient visit MAIA CHAPA [facility] Start: 11-06-2023 End: 11-06-2023 Emergency department patient visit JERMAIN MENCHACA [facility] Start: 10-30-2023 End: 10-30-2023 ambulatory JERMAIN MENCHACA Not Available Start: 08-28-2023 End: 08-28-2023 ambulatory Alberto Pacheco MD Facility:[facility] Start: 08-21-2023 End: 08-21-2023 ambulatory CHATA JARVIS Not Available Start: 08-14-2023 End: 08-14-2023 ambulatory Alberto Pacheco MD Facility: [facility] Start: 08-07-2023 End: 08-07-2023 ambulatory Alberto Pacheco MD Facility: [facility] Start: 08-01-2023 End: 08-01-2023 ambulatory ENRIQUE RUTHERFORD Not Available Start: 07-27-2023 End: 07-27-2023 ambulatory ENRIQUE RUTHERFORD Not Available Start: 07-11-2023 End: 07-11-2023 ambulatory ENRIQUE Omar SANGEETA Not Available Start: 06-13-2023 End: 06-13-2023 ambulatory JERMAIN WELLSA Not Available Start: 06-06-2023 End: 06-06-2023 ambulatory ENRIQUE Omar SANGEETA Not Available Start: 06-01-2023 End: 06-03-2023 Emergency department patient visit AGUSTIN GARCIA [facility] Start: 06-01-2023 End: 06-02-2023 ambulatory JERMAIN Wan NIKOLAI [facility] Start: 05-04-2023 End: 05-04-2023 ambulatory ABEL Omar SOLIS Not Available Start: 04-20-2023 End: 04-20-2023 ambulatory ABEL OSLIS Not Available Start: 04-10-2023 End: 04-10-2023 ambulatory JERMAIN MENCHACA Not Available Start: 10-11-2022 End: 01-09-2024 Assay of hemosiderin, quant Lita Silvestre NP Work Phone: [facility] Start: 12-17-2021 End: 12-17-[address] JERMAIN MENCHACA Facility: Procedures Date Procedure Procedure Detail Performing Clinician Start: 01-16-2024 Radiologic examinati on pelvis 1/2 views Lita Silvestre NP Work Phone: Start: 12-19-2023 Radiologic examinati on pelvis 1/2 views Lita Silvestre [employer] Work Phone: Start: 11-23-2023 Radiologic examinati on pelvis 1/2 views Lita Silvestre [employer] Work Phone: Plan of Treatment Date Care Activity Detail Author Start: 10-29-2024 Medicare Annual Wellness (AWV) Medicare Annual Wellness (AWV) [facility] Start: 04-29-2024 End: 04-29-2024 Patient encounter procedure 04/29/2024 9:45 AM EDT Office Visit [facility] [address] [facility] [address] [place] [address] Jermain Menchaca MD [address] [facility] [address] [place] [address] [facility] Start: 01-16-2024 End: 01-16-2024 Patient encounter procedure 01/16/2024 10:15 AM EST Office Visit [facility] [address] [place] [address] [place] [address] Lita Silvestre, [employer] [address] [place] [address] [facility] Start: 01-09-2024 End: 01-09-2024 Patient encounter procedure [facility] Comment on above: Arrived Start: 12-26-2023 End: 12-26-2023 Patient encounter procedure 12/26/2023 8:30 AM EST Office Visit [facility] [address] [facility] [address] [place] [address] Chata Jarvis PA [address] [facility] [address] [place] [address] Arrived [facility] Comment on above: Arrived Start: 12-19-2023 End: 12-19-2023 Patient encounter procedure [facility] Comment on above: Closed fracture of m ultiple pubic rami, right, with routine healing, subsequent encounter; Closed nondisplaced fracture of medial wall of left acetabulum with routine healing, subsequent encounter Start: 12-07-2023 End: 12-07-2023 Patient encounter procedure 12/07/2023 9:30 AM EDT Office Visit [facility] [address] [place] [phone] Lita Silvestre, [employer] [address] [place] [address] [facility] Start: 11-23-2023 End: 11-23-2023 Patient encounter procedure 11/23/2023 2:00 PM EDT Office Visit [facility] [address] [place] [phone] Lita Silvestre NP [address] [place], [place] [id number] Arrived [facility] Comment on above: Arrived Start: 10-22-2023 Influenza vaccination Influenza Vacc ine (#1) [facility] Immunizations Immunization Date Immunization Notes Care Provider Fa cili 12-26-2023 Influenza, High-dose Seasonal, Quadrivalent, Preservative Free Chata COLIN Work Phone: [facility] 12-22-2022 influenza, high dose seasonal, preservative-free Lita Silvestre [employer] Work Phone: [facility] 12-22-2022 influenza virus vacc ine, unspecified formulation Lita Silvestre [employer] Work Phone: [facility] 12-18-2021 Influenza, High-dose Seasonal, Quadrivalent, Preservative Free Lita Silvestre [employer] Work Phone: [facility] 12-18-2021 Moderna Bivalent Silver ster Vaccination Lita Silvestre [employer] Work Phone: [facility] 12-01-2020 Influenza, High-dose Seasonal, Quadrivalent, Preservative Free Lita Silvestre [employer] Work Phone: [facility] 12-16-2019 influenza, injectabl e, quadrivalent, preservative free Lita Silvestre [employer] Work Phone: [facility] 12-10-2018 influenza, injectabl e, quadrivalent, preservative free Lita Silvestre [employer] Work Phone: [facility] 12-20-2017 influenza, high dose seasonal, preservative-free Lita Silvestre [employer] Work Phone: [facility] 12-11-2017 influenza, injectabl e, quadrivalent, preservative free Lita Renny [employer] Work Phone: [facility] 11-01-2016 influenza, high dose seasonal, preservative-free Lita Silvestre [employer] Work Phone: [facility] 11-01-2016 pneumococcal conjuga te vaccine, 13 valent Lita Renny [employer] Work Phone: [facility] 11-21-2015 pneumococcal polysaccharide vaccine, 23 valent Lita Renny [employer] Work Phone: [facility] 11-19-2015 influenza, injectabl e, madin abhijit canine kidney, preservative free Lita Renny [employer] Work Phone: [facility] 10-29-2015 influenza virus vacc ine, unspecified formulation Lita Renny [employer] Work Phone: [facility] 10-29-2015 influenza, seasonal, injectable, preservative free Lita Renny [employer] Work Phone: [facility] 01-03-2015 influenza, high dose seasonal, preservative-free Lita Renny [employer] Work Phone: [facility] 04-14-2014 pneumococcal vaccine , unspecified formulation Lita Renny [employer] Work Phone: [facility] 11-14-2012 influenza virus vacc ine, whole virus Lita Renny [employer] Work Phone: [facility] 11-22-2011 influenza virus vacc ine, whole virus Lita Renny [employer] Work Phone: [facility] 11-17-2010 influenza virus vacc ine, whole virus Lita Silvestre [employer] Work Phone: [facility] 12-02-2009 influenza virus vacc ine, whole virus Lita Silvestre [employer] Work Phone: [facility] 11-26-2008 influenza virus vacc ine, whole virus Lita Silvestre [employer] Work Phone: [facility] 12-06-2006 influenza virus vacc ine, whole virus Lita Silvestre [employer] Work Phone: [facility] Payers Date Payer Category Payer Private Health Insurance AARAlondra Ruano mber [id number] 2022 Unknown [id number] .[id number] 2001 Medicare [id number] [id number] .[id number] 1959 Medicare [id number] 1959 Unknown [id number] 1936 Unknown [id number] 2.16.840.1.590925.3.579.2 .593 1936 Unknown [id number] 2.16.840.1.328620.3.579.2 .1285 1936 Unknown [id number] 2.16.840.1.010698.3.579.2 .1285 1936 Unknown [id number] 2.16.840.1.959446.3.579.2 .1285 1936 Unknown [id number] 2.16.840.1.136323.3.579.2 .1285 1936 Unknown [id number] 2.16.840.1.361185.3.579.2 .128 1936 Unknown [id number] 2.16.840.1.177874.3.579.2 .1285 1936 Unknown [id number] 2.16.840.1.558442.3.579.2 .196 1936 Unknown [id number] 2.16.840.1.642687.3.579.2 .1936 Unknown [id number] 2.16.840.1.468641.3.579.2 .1936 Unknown [id number] 2.16.840.1.128708.3.579.2 .1936 Unknown [id number] 2.16.840.1.875749.3.579.2 .1936 Unknown [id number] 2.16.840.1.393512.3.579.2 .1258 1936 Unknown [id number] 2.16.840.1.418333.3.579.2 .1258 1936 Unknown [id number] 2.16840.1.255557.3.579.2 .1258 1936 Unknown [id number] 2.840.1.789554.3.579.2 .1258 1936 Unknown [id number] 2.840.1.324428.3.579.2 .1258 1936 Unknown [id number] 2.840.1.078804.3.579.2 .1258 1936 Unknown [id number] 2.840.1.838659.3.579.2 .1258 1936 Unknown [id number] 2.840.1.598293.3.579.2 .1258 1936 Unknown [id number] 2.16840.1.976766.3.579.2 .1258 1936 Unknown [id number] 2.16.840.1.617439.3.579.2 .1258 1936 Unknown [id number] 2.16.840.1.286733.3.579.2 .1258 1936 Unknown [id number] 2.16840.1.637389.3.579.2 .1258 1936 Unknown [id number] 2.16.840.1.813702.3.579.2 .1258 1936 Unknown [id number] 2.16.840.1.992462.3.579.2 .1258 1936 Unknown [id number] 2.16.840.1.459335.3.579.2 .1258 1936 Unknown [id number] 2.16.840.1.262941.3.579.2 .1258 1936 Unknown [id number] 2.16.840.1.165496.3.579.2 .1258 1936 Unknown [id number] 2.16.840.1.957291.3.579.2 .1258 1936 Unknown [id number] 2.16.840.1.955912.3.579.2 .1258 1936 Unknown [id number] 2.16.840.1.535050.3.579.2 .1259 Social History Date Type Detail Facility Start: 08-21-2023 Tobacco smoking stat [facility] Ex-smoker [facility] Work Phone: End: 02-20-1969 History of tobacco use Current smoker [facility] End: 02-20-1969 History of tobacco use Cigarette Smoker [facility] Start: 08-21-2023 Tobacco use and exposure Smokeless tobacco non-user [facility] Start: 10-30-2023 End: 01-17-2024 Alcoholic beverage intake Current drinker of alcohol (finding) [facility] Start: 10-11-2022 End: 10-30-2023 History of Social function [facility] Start: 10-11-2022 End: 10-30-2023 Tobacco use panel [facility] Start: 12-01-2022 Alcohol Comment 1-2 drinks mon thly or less [facility] Start: 1935 Sex assigned at Not on file [facility] Clinical Notes 06-21-2021 to 01-16-2024 Lita Silvestre NP - 01/16/2024 10:15 AM CRISTI Kimble - 01/09/2024 8:30 AM CRISTI Kimble - 12/26/2023 8:30 AM ESTTelephone Encounter - Lita Silvestre NP - 12/25/2023 10:57 AM EST Note Date & Type Note Facility 01-16-2024 History of Present illness Narrative Images from the original note were not included. Chief Complaint Patient presents with Pelvis - Follow-up HISTORY OF PRESENT ILLNESS: Enrique Mike is an 88 y.o. @ male. Low back/pelvis injury x 10 weeks 2 days, 11/05/23, fell back off a ladder. Went to [facility] ER 11/05, had CT abdomen pelvis and given norco. Hx decompressive laminectomy L3-4, L4-5 (12/01/21)- Dr Rutherford Walking with a walker. Notes pain has improved. Not as bad as it was, still mostly LT sided. Pain is 2-3/10 today. Taking a pain med from pain management, unsure of name. Denies bowel/bladder issues. Admits N/T down LT leg. Says he is sleeping better. Will have soreness in tailbone with prolonged sitting. Prior tx: [facility] ER 11/06/23, CT abdomen pelvis, norco, [facility], XR [facility] 12/19/23, XR [facility] 01/16/24 ALLERGIES: No Known Allergies HOME MEDICATIONS: Current Outpatient Medications Medication Instructions acetaminophen (TYLENOL) 325 mg, Oral, Every 6 hours PRN baclofen (LIORESAL) 10 mg, Oral, 2 times daily PRN co-enzyme Q-10 100 mg, Oral, Daily finasteride (PROSCAR) 5 mg, Oral, Daily HYDROcodone-acetaminophen ([place]) 5-325 MG tablet 1 tablet, Oral, Every [...] daily tamsulosin (FLOMAX) 0.4 mg, Oral, Daily traMADol (ULTRAM) 50 mg, Oral, Every 6 hours PRN Wound Dressings (Medihoney wound/burn) gel APPLY TO THE AFFECTED AREA(S) TOPICALLY DAILY FOR 14 DAYS PHYSICAL EXAM: Right Hip Exam Tenderness The patient is experiencing no tenderness. Other Sensation: normal Left Hip Exam Tenderness The patient is experiencing tenderness in the posterior. Back Exam Tenderness The patient is experiencing tenderness in the sacroiliac (improved since last appointment). Other Gait: antalgic (using walker) Vitals: There is no height or weight on file to calculate BMI. IMAGING: XR pelvis 1 or 2 views Imaging Result: 01/16/2024 AP pelvis demonstrate well healing healing right pubic rami fracture and healing left acetabulum fracture in acceptable alignment with increased callus formation. No signs of displacement. Impression: Healing right pubic rami and left acetabulum fracture. Lita ST ASSESSMENT: ICD-10-CM 1. Closed fracture of multiple pubic rami, right, with routine healing, subsequent encounter S32.591D XR pelvis 1 or 2 views Procedures PLAN: I reviewed xray findings with patient which demonstrated stable right pubic rami fracture and left acetabulum fracture. He states most of his pain was from his back and is improving with pain management. He will call with any worsening symptoms and follow up with our office as needed. Questions answered in laymen terms at the bedside. The diagnosis, home exercise plan and any ongoing restrictions/ recommendations reviewed. If unable to be reached in office, I recommend evaluation at nearest Emergency Room if any symptoms worsened or new symptoms develop for requiring urgent evaluation. Lita Silvestre APRN-CHEESE SUPERVISOR documented in this encounter [facility] 01-09-2024 History of Present illness Narrative Subjective [...] mg by mouth in the morning. HYDROcodone-acetaminophen ([place]) 5-325 MG tablet Take 1 tablet by [...] Right 08/08/[address] Rutherford. [facility] REPAIR OF H[place]ERT[place],ONE Bilateral Procedure:Surgical repair;Disease:Hammer Toe [...] now scabbed. He is doing well with [employer]. Pt is being told by PM to [...] Appointment As Scheduled. documented in this encounter [facility] 12-26-2023 History of Present illness Narrative Images from the original note were not included. Subjective Patient ID: Enrqiue Mike is a 88 y.o. male who presents for rash. Enrique is present today with son for evaluation of rash. Admits the rash on coccyx and has been there for about a month, states it is itchy and scabby , painful and can't see what it looks like so does not know what it looks like.He has been using a cream the poultry vaccinator prescribed (doesn't know the name of the [...] mg by mouth in the morning. HYDROcodone-acetaminophen ([place]) 5-325 MG tablet Take 1 tablet by [...] Types: Cigarettes Quit date: 1970 Years since quittin.8 Smokeless tobacco: Never Vaping [...] Right 08/08/[address] Rutherford. [facility] REPAIR OF H[place]ERT[place],ONE Bilateral Procedure:Surgical repair;Disease:Hammer Toe [...] vaccination - Influenza, high-dose seasonal, quadrivalent, PF (DSL218) (Fluzone High Dose Quad [place] 0.7mL dose) Provided pt with Flu shot today. He tolerated this well. Follow up for Wound Check in 1-2 Weeks. documented in this encounter [facility] 12-25-2023 Telephone encounter Note Ariadna good [facility] Work Phone: 12-25-2023 Miscellaneous Notes Sounds good I can see him in [place] today but I dont know how much I will be able to do. Gerardo son called for patient stated his dad was seen for L-spine and hip pain by you and Dr Rutherford he was referred to pain mgmt in [facility] also, he can hardly walk and in a lot of pain. He asked where he should start, he did try [facility] mgmt number but had trouble getting ahold of them, I gave him the number to hospital and told him to ask for pain mgmt. He asked should he go there or can you or Dr Rutherford see him? Please advise. His call back [phone] documented in this encounter [facility] 12-25-2023 Telephone encounter Note I can see him in [place] today but I dont know how much I will be able to do. [facility] 12-25-2023 Telephone encounter Note Gerardo son called for patient stated his dad was seen for L-spine and hip pain by you and Dr Rutherford he was referred to pain mgmt in [facility] also, he can hardly walk and in a lot of pain. He asked where he should start, he did try [facility] mgmt number but had trouble getting ahold of them, I gave him the number to hospital and told him to ask for pain mgmt. He asked should he go there or can you or Dr Rutherford see him? Please advise. His call back [phone] [facility] 12-19-2023 History of Present illness Narrative Images from the original note were not included. Chief Complaint Patient presents with Pelvis - Follow-up HISTORY OF PRESENT ILLNESS: Enrique Mike is an 88 y.o. @ male. Low back/pelvis injury x 6 weeks 2 days, 11/05/23, fell back off a ladder. Went to [facility] 11/05, had CT abdomen pelvis and given norco. Hx decompressive laminectomy L3-4, L4-5 (12/01/21)- Dr Rutherford Walking with a walker. States he was doing fine but has recently been having a terrible time. Unsure if something shifted. Pain is mostly LT sided. Taking TYL and IBU. Prior tx: [facility] 11/06/23, CT abdomen pelvis, norco, TYL, XR [facility] 12/19/23 ALLERGIES: No Known Allergies HOME MEDICATIONS: Current Outpatient Medications Medication Instructions acetaminophen (TYLENOL) 325 mg, Oral, Every 6 hours PRN baclofen (LIORESAL) 10 mg, Oral, 2 times daily PRN co-enzyme Q-10 100 mg, Oral, Daily finasteride (PROSCAR) 5 mg, Oral, Daily HYDROcodone-acetaminophen ([place]) 5-325 MG tablet 1 tablet, Oral, Every [...] rami and left acetabulum fracture. Lita Silvestre STRAW HAT BRIM CUTTER OPERATOR-CHEESE SUPERVISOR ASSESSMENT: ICD-10-CM 1. Closed fracture of multiple [...] develop for requiring urgent evaluation. Lita Silvestre STRAW HAT BRIM CUTTER OPERATOR-CHEESE SUPERVISOR documented in this encounter [facility] 11-23-2023 History of Present illness Narrative Images from the original note were not included. Chief Complaint Patient presents with Pelvis - Follow-up HISTORY OF PRESENT ILLNESS: Enrique Mike is an 88 y.o. @ male. Low back/pelvis injury x 2 weeks 4 days, 11/05/23, fell back off a ladder. Went to [facility] 11/05, had CT abdomen pelvis and given norco. Hx decompressive laminectomy L3-4, L4-5 (12/01/21)- Dr Rutherford WBAT with walker. States he sat for a while in a hard chair, had increased pain. Pain near RT hip/buttocks. Taking TYL. Denies N/T. Does not wake at HS, sleep better in chair. Increased pain with walking. Prior tx: [facility] 11/06/23, CT abdomen pelvis, norco, TYL ALLERGIES: No Known Allergies HOME MEDICATIONS: Current Outpatient Medications Medication Instructions acetaminophen (TYLENOL) 325 mg, Oral, Every 6 hours PRN baclofen (LIORESAL) 10 mg, Oral, 2 times daily PRN co-enzyme Q-10 100 mg, Oral, Daily finasteride (PROSCAR) 5 mg, Oral, Daily HYDROcodone-acetaminophen ([place]) 5-325 MG tablet 1 tablet, Oral, Every [...] rami and left acetabulum fracture. Lita Silvestre STRAW HAT BRIM CUTTER OPERATOR-CHEESE SUPERVISOR ASSESSMENT: ICD-10-CM 1. Closed fracture of multiple [...] develop for requiring urgent evaluation. Lita Silvestre APRN-CHEESE SUPERVISOR documented in this encounter [facility] 10-15-2021 Note PROCEDURE: Multiplan ar, multisequence imaging [...] signed by Kota Vargas on 10/18/2021 0738 [facility] Slide Attendant 06-23-2021 Note [id number] 06-23-2021 Note [id number] 06-22-[address] HARRIS POST [...] or concerns, please call the office at [phone] -Follow up as scheduled [facility] 06-22-2021 Note [facility] Discharge Summary PERSON INFORMATION Name ENRIQUE MIKE Age 85 Years 1935 Sex MALE Language Kyrgyz PCP JERMAIN MENCHACA MD Marital Status Med Service Observation Acct# Arrival 06/21/2021 05:54:00 Visit Reason SURGERY - LEFT REVERSE TOTAL SHOULDER - ARTHREX Acuity LOS 000 29:26 Address: [address] [place] [id number] Comment: PROVIDER INFORMATION VITALS INFORMATION Vital Sign [...] EDUCATION INFORMATION Instructions: Sangeeta- Post Op Shoulder (MHAHUDMELISSA) Follow up: With: Address: When: Enrique Rutherford [address] [place] [address], [address] [place] [address] [facility] (1) 06/29/2021 10:45 AM DIAGNOSIS Osteoarthritis of left shoulder; Other specific arthropathies, not elsewhere classified, left shoulder; Rotator cuff tear arthropathy of left shoulder Comment: PHYS DOC NOTES [facility] 06-21-2021 Note [id number] [facility] Evaluation note Diagnosis Closed fracture [...] (CMS/HCC)- Primary [facility] [...] rami, right, with routine healing, subsequent encounter documented in this encounter [facility] Summary [...] section and content) DATE CREATED AUTHOR 10/13/2021 [facility] DATE CREATED AUTHOR AUTHOR'S ORGANIZ ATION 10/18/2021 [facility] dical Specialist DATE CREATED AUTHOR AUTHOR'S ORGANIZ ATION 12/20/[address] [facility] DATE CREATED AUTHOR AUTHOR'S ORGANIZ ATION 11/07/2023 [facility] DATE CREATED AUTHOR AUTHOR'S ORGANIZ ATION 01/09/2024 [facility] DATE CREATED AUTHOR AUTHOR'S ORGANIZ ATION 01/21/2024 [facility] dical Specialists EPIC Care Teams (unrecognized sec tion and content) Russian Language Instructor Relationship Specialty Start Date End Date Jermain Menchaca MD [address] [facility] [address] [place] [address] PCP - General Family Medicine 07/04/22 Jermain Menchaca MD [address] [facility] [address] [place] [address] PCP - ACO Reach 07/14/22 Russian Language Instructor Relationship Specialty Start Date End Date Jermain Menchaca MD [address] [facility] [address] [place] [address] PCP - General Family Medicine 07/04/22 Jermain Menchaca MD [address] [facility] [address] [place] [address] PCP - ACO Reach 07/14/22 Russian Language Instructor Relationship Specialty Start Date End Date Jermain Menchaca MD [address] [place] [address] [place] [address] PCP - General Family Medicine 07/04/22 Jermain Menchaca MD [address] [place] [address] [place] [address] PCP - ACO Reach 07/14/22 Russian Language Instructor Relationship Specialty Start Date End Date Jermain Menchaca MD [address] [place] [address] [place] [address] PCP - General Family Medicine 07/04/22 Jermain Menchaca MD [address] [place] [address] [place] [address] PCP - ACO Reach 07/14/22 Russian Language Instructor Relationship Specialty Start Date End Date Jermain Menchaca MD [address] [place] [address] [place] [address] PCP - General Family Medicine 07/04/22 Jermain Menchaca MD [address] [place] [address] [place] [address] PCP - ACO Reach 07/14/22 Russian Language Instructor Relationship Specialty Start Date End Date Jermain Menchaca MD [address] [place] [address] [place] [address] PCP - General Family Medicine 07/04/22 Jermain Menchaca MD [address] [place] [address] [place] [address] PCP - ACO Reach 07/14/22 Russian Language Instructor Relationship Specialty Start Date End Date Jermain Menchaca MD [address] [facility] [address] [place] [address] PCP - General Family Medicine 07/04/22 Jermain Menchaca MD [address] [facility] [address] [place] [address] PCP - ACO Reach 07/14/22 Russian Language Instructor Relationship Specialty Start Date End Date Jermain Menchaca MD [address] [facility] [address] [place] [address] PCP - General Family Medicine 07/04/22 Jermain Menchaca MD [address] [facility] [address] [place] [address] PCP - ACO Reach 07/14/22 Reason for [...] BE BASED ON THE PRIMARY CLINICAL RECORDS. [employer] [facility]. provides no warranty or guarantee of the accuracy or completeness of information in this document.
--- NOTE | 2024-01-25 08:26 | P.CN_ITS ---
Consult Note: HPI Data of Consult Patient: known to practice within the last 3 years Consult date: 12/25/23 Requesting Physician: Gracie Mcqueen NP Primary Care Provider: JERMAIN MENCHACA Consult Narrative Reason for consult: low back, left hip and leg pain Narrative: 88yom who presents for assessment. had fall at home 3 months ago, has had increasing pain down left leg. imaging reviewed, significant for severe stenosis at multiple levels in lumbar spine. has engaged in a series of provider directed home exercises >6 weeks, without benefit. uses tylenol, mobic, tramadol 50mg HS PRN. recently underwent left L4/5 L5/s1 TFESI and left SIJ injection providing 80% improvement overall per pt. pain 04/01. cc:: CC: Gracie Mcqueen NP Review of Systems ROS Status of ROS 10 or more systems reviewed and unremark able except as noted in history and below Musculoskeletal Reports: back pain and joint pain PFSH PFSH Medical History Rotator cuff tear, left ?M75.102 - Unspecified rotator cuff tear or rupture of left shoulder, not specified as traumatic (ICD-10) Macular degeneration ?H35.30 - Unspecified macular degeneration (ICD-10) Carpal tunnel syndrome ?G56.00 - Carpal tunnel syndrome, unspecified upper limb (ICD-10) Hearing deficit ?H91.90 - Unspecified hearing loss, unspecified ear (ICD-10) Stroke ?I63.9 - Cerebral infarction, unspecified (ICD-10) High blood pressure ?I10 - Essential (primary) hypertension (ICD-10) Surgical History Hx of decompressive lumbar laminectomy ?Z98.890 - Other specified postprocedural states (ICD-10) 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 - Presence of left artificial shoulder joint (ICD-10) 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 lisinopril 10 mg tablet 10 mg PO DAILY 08/28/23 01/22/24 History Allergies Allergy/AdvReac Type Severity Reaction Status Date / Time No Known Drug Allergies Allergy Verified 01/22/24 08:54 Exam Narrative Exam Narrative: Psych-alert and oriented x 3. Attentive and appropriate, constitutionally normal, displays normal mood and affect per situation. There are no obvious deficits in memory, reasoning, or intellect.? Skin-no obvious rashes, bruising, erythema noted to the patient's area of pain.? Extremities- extremities are warm with minimal edema and palpable pulses. Lumbar-tenderness to palpation noted in the lumbar spine and paraspinal musculature. Pain is elicited with flexion, extension, and lateral rotation of the lumbar spine. Range of motion is diminished with these motions. Facet loading maneuvers are positive.? Strength-noted to be unremarkable Sensory-no notable sensory deficits in the bilateral lower extremities to touch or pinprick in all dermatomal distributions Sacroiliac - tender to palpation over left PSIS. Positive Eduardo's on the left. Positive thigh thrust on the left. Coordination remains intact.? Gait remains non-antalgic. Constitutional Documenting provider has reviewed patient's vital signs: yes Common normals: no apparent distress, oriented x3, healthy appearing, alert and well nourished General appearance: cooperative HENMT Common normals: normocephalic, hearing grossly normal bilaterally and moist oral mucous membranes Head and scalp: normocephalic Eye Common normals: PERRL Pupil: PERRL Neck & C-Spine Common normals: full ROM General: normal visual inspection Chest Common normals: inspection of chest normal Respiratory Common normals: normal respiratory effort, no retractions and no use of accessory muscles Neuro Common normals: oriented x3, CN's II-XII intact bilaterally, moves all extremities, no focal motor deficits, no sensory deficits noted and deep tendon reflexes 2+ bilaterally Sensorium/orientation: alert Motor exam: strength 5/5 throughout and no movement abnormalities noted Psych Common normals: mental status grossly normal, thought process normal, cooperative, affect normal, speech normal and activity/motor behavior normal Speech: normal speech Thought process: normal thought process Results Additional Findings Additional findings: If on a controlled substance or opioids, I have checked an [place] report on this patient and there are no aberrancies noted in the prescribing history.??If on a controlled substance or opioid a drug screen was completed and reviewed within the last year, and if there has not been a drug screen completed we ordered one today to monitor higher risk, state monitored pain medication use. As part of providing excellent, safe, comprehensive care, the following was completed at our patient's visit: 1. A medication reconciliation and review to ensure accurate knowledge of current/active medications, including asking our patients to inform us about any ovxi-uoc-yotxwwd medications or herbal remedies/nutritional supplements/alternative remedies. 2. A review to specifically ensure our patients have had annual screening for screening for depression, screening for tobacco use, and screening for unhealthy alcohol use. For concerning screenings had a discussion with the patient, provided patient education, and recommended follow-up with primary care provider when appropriate. If patient noted with a risk of falling, they received education on strength, gait, and balance training to prevent future risk of falling. Assessment and Plan Assessment and Plan (1) Lumbar stenosis with neurogenic claudication: (2) Sacroiliac joint disease: Plan risks vs benefits reviewed, reports improvement in pain and sleep as well as quality of life with tramadol 50mg HS PRN moderate to severe pain. will decrease to tramadol 50mg once daily PRN moderate to severe pain continue HEP as tolerated continue PRN tylenol OTC continue meloxicam 15mg daily through PCP f/u 3 months, sooner if needed
== END 2024-01-25 08:12 | disposition home or self-care (01) ==
LOC: PM 08:11
PROVIDERS: PCP Family Medicine; Visit Provider Nurse Practitioner
DX: M48.062 Spinal stenosis, lumbar region with neurogenic claudication (principal); M53.3 Sacrococcygeal disorders, not elsewhere classified
CPT/HCPCS: G0463

== ENCOUNTER 2024-04-25 07:56 | Outpatient (OUT) | payer MEDICARE, SELFPAY ==
--- NOTE | 2024-04-25 08:15 | P.CN_ITS ---
Consult Note: HPI Data of Consult Patient: known to practice within the last 3 years Requesting Physician: Gracie Mcqueen NP Primary Care Provider: JERMAIN MENCHACA Consult Narrative Reason for consult: low back, left hip and leg pain Narrative: 88yom who presents for assessment. imaging reviewed, significant for severe stenosis at multiple levels in lumbar spine. has engaged in a series of provider directed home exercises >6 weeks, without benefit. uses tylenol, mobic, tramadol 50mg HS PRN. pt reports >50% improvement from prior left L4-5 L5-S1 TFESI and left SIJ injection. Pain today 0/10 increasing to 6/10 with standing and walking, improved with forward flexion and sitting. cc:: CC: Gracie Mcqueen NP Review of Systems ROS Status of ROS 10 or more systems reviewed and unremark able except as noted in history and below Musculoskeletal Reports: back pain and joint pain PFSH PFSH Medical History Rotator cuff tear, left ?M75.102 - Unspecified rotator cuff tear or rupture of left shoulder, not specified as traumatic (ICD-10) Macular degeneration ?H35.30 - Unspecified macular degeneration (ICD-10) Carpal tunnel syndrome ?G56.00 - Carpal tunnel syndrome, unspecified upper limb (ICD-10) Hearing deficit ?H91.90 - Unspecified hearing loss, unspecified ear (ICD-10) Stroke ?I63.9 - Cerebral infarction, unspecified (ICD-10) High blood pressure ?I10 - Essential (primary) hypertension (ICD-10) Surgical History Hx of decompressive lumbar laminectomy ?Z98.890 - Other specified postprocedural states (ICD-10) 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 - Presence of left artificial shoulder joint (ICD-10) 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 lisinopril 10 mg tablet 10 mg PO DAILY 08/28/23 01/22/24 History Allergies Allergy/AdvReac Type Severity Reaction Status Date / Time No Known Drug Allergies Allergy Verified 01/22/24 08:54 Exam Constitutional Documenting provider has reviewed patient's vital signs: yes Common normals: no apparent distress, oriented x3, healthy appearing, alert and well nourished General appearance: cooperative HENMT Common normals: normocephalic, hearing grossly normal bilaterally and moist oral mucous membranes Head and scalp: normocephalic Eye Common normals: PERRL Pupil: PERRL Neck & C-Spine Common normals: full ROM General: normal visual inspection Chest Common normals: inspection of chest normal Respiratory Common normals: normal respiratory effort, no retractions and no use of accessory muscles Back & Pelvis Lumbar spine/lower back: ROM limited, pain with ROM and straight leg raise positive left Sacroiliac joints: SI joint(s) abnormal Other: left sij positive garry(patricks), gaenslens, thigh thrust, compression test decreased sensation left L4,5,S1 Neuro Common normals: oriented x3, CN's II-XII intact bilaterally, moves all extremities, no focal motor deficits, no sensory deficits noted and deep tendon reflexes 2+ bilaterally Sensorium/orientation: alert Motor exam: strength 5/5 throughout and no movement abnormalities noted Psych Common normals: mental status grossly normal, thought process normal, cooperative, affect normal, speech normal and activity/motor behavior normal Speech: normal speech Thought process: normal thought process Results Additional Findings Additional findings: If on a controlled substance or opioids, I have checked an [place]AR[place] report on this patient and there are no aberrancies noted in the prescribing history.??If on a controlled substance or opioid a drug screen was completed and reviewed within the last year, and if there has not been a drug screen completed we ordered one today to monitor higher risk, state monitored pain medication use. As part of providing excellent, safe, comprehensive care, the following was completed at our patient's visit: 1. A medication reconciliation and review to ensure accurate knowledge of current/active medications, including asking our patients to inform us about any rlus-cet-rocgoon medications or herbal remedies/nutritional supplements/alternative remedies. 2. A review to specifically ensure our patients have had annual screening for screening for depression, screening for tobacco use, and screening for unhealthy alcohol use. For concerning screenings had a discussion with the patient, provided patient education, and recommended follow-up with primary care provider when appropriate. If patient noted with a risk of falling, they received education on strength, gait, and balance training to prevent future risk of falling. Assessment and Plan Assessment and Plan (1) Lumbar stenosis with neurogenic claudication: (2) Sacroiliac joint disease: (3) Sacroiliitis: Plan repeat left L4-5 L5-S1 TFESI under fluoroscopy when pt calls for repeat injection continue current medications continue HEP as tolerated f/u PRN or 2 weeks after TFESI
== END 2024-04-25 07:57 | disposition home or self-care (01) ==
PROVIDERS: PCP Family Medicine; Visit Provider Nurse Practitioner
DX: M48.062 Spinal stenosis, lumbar region with neurogenic claudication (principal); M53.3 Sacrococcygeal disorders, not elsewhere classified; M46.1 Sacroiliitis, not elsewhere classified
CPT/HCPCS: G0463

== ENCOUNTER 2024-11-07 07:51 | Outpatient (OUT) | payer MEDICARE, SELFPAY ==
--- NOTE | 2024-11-07 07:55 | PM.CN ---
Consult Note: HPI Data of Consult Patient: known to practice within the last 3 years Consult date: 11/07/24 Requesting Physician: Gracie Mcqueen NP Primary Care Provider: JERMAIN MENCHACA Consult Narrative Reason for consult: low back pain Narrative: 89yom who presents for assessment. imaging reviewed, significant for severe stenosis at multiple levels in lumbar spine. has engaged in a series of provider directed home exercises >6 weeks, without benefit. uses tylenol prn. noting increased low back and right leg pain over the last few months without fall/injury. Pain today 5-6/10 aching increasing at times to 10/10 with standing, walking, stairs, bending, activity, ADLs, sleep. Pain mildly improved with lying and sitting. cc:: CC: Gracie Mcqueen NP Review of Systems ROS Musculoskeletal Reports: back pain, extremity pain and joint pain PFSH PFSH Medical History Rotator cuff tear, left ?M75.102 - Unspecified rotator cuff tear or rupture of left shoulder, not specified as traumatic (ICD-10) Macular degeneration ?H35.30 - Unspecified macular degeneration (ICD-10) Carpal tunnel syndrome ?G56.00 - Carpal tunnel syndrome, unspecified upper limb (ICD-10) Hearing deficit ?H91.90 - Unspecified hearing loss, unspecified ear (ICD-10) Stroke ?I63.9 - Cerebral infarction, unspecified (ICD-10) High blood pressure ?I10 - Essential (primary) hypertension (ICD-10) Surgical History Hx of decompressive lumbar laminectomy ?Z98.890 - Other specified postprocedural states (ICD-10) 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 - Presence of left artificial shoulder joint (ICD-10) 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) Meds Home Medications and Allergies Home Medications ?Medication ?Instructions ?Recorded ?Confirmed ?Type aspirin 81 mg capsule 81 mg PO BID 08/07/23 01/22/24 History finasteride 5 mg tablet 5 mg PO DAILY 08/07/23 01/22/24 History levothyroxine 100 mcg tablet 100 mcg PO DAILY 08/07/23 01/22/24 History lovastatin 20 mg tablet 20 mg PO DAILY 08/07/23 01/22/24 History meloxicam 15 mg tablet 15 mg PO DAILY 08/07/23 01/22/24 History tamsulosin 0.4 mg capsule 0.4 mg PO Q24H 08/07/23 01/22/24 History vit A 7,160 unit-C 113 mg-E 100 tab PO 08/07/23 History nxju-aose-tbmpkh tablet,delayed rel. lisinopril 10 mg tablet 10 mg PO DAILY 08/28/23 01/22/24 History meloxicam 7.5 mg tablet 7.5 mg PO BID PRN pain #60 tabs 11/07/24 Rx Allergies Allergy/AdvReac Type Severity Reaction Status Date / Time No Known Drug Allergies Allergy Verified 01/22/24 08:54 Exam Constitutional Documenting provider has reviewed patient's vital signs: yes Common normals: no apparent distress, oriented x3, healthy appearing, alert and well nourished General appearance: cooperative HENMT Common normals: normocephalic, hearing grossly normal bilaterally and moist oral mucous membranes Head and scalp: normocephalic Eye Common normals: PERRL Pupil: PERRL Neck & C-Spine Common normals: full ROM General: normal visual inspection Chest Common normals: inspection of chest normal Respiratory Common normals: normal respiratory effort, no retractions and no use of accessory muscles Back & Pelvis Lumbar spine/lower back: pain with ROM, lumbar spinal tenderness and straight leg raise positive right Sacroiliac joints: SI joint(s) abnormal Other: bilateral sij positive garry(patricks), gaenslens, thigh thrust, compression test decreased sensation right L4,5,S1 strength 4/5 in BLE Neuro Common normals: oriented x3 Sensorium/orientation: alert Psych Common normals: mental status grossly normal, thought process normal, cooperative, affect normal, speech normal and activity/motor behavior normal Speech: normal speech Thought process: normal thought process Results Additional Findings Additional findings: If on a controlled substance or opioids, I have checked an [place] report on this patient and there are no aberrancies noted in the prescribing history.??If on a controlled substance or opioid a drug screen was completed and reviewed within the last year, and if there has not been a drug screen completed we ordered one today to monitor higher risk, state monitored pain medication use. As part of providing excellent, safe, comprehensive care, the following was completed at our patient's visit: 1. A medication reconciliation and review to ensure accurate knowledge of current/active medications, including asking our patients to inform us about any agsc-fof-uthstzy medications or herbal remedies/nutritional supplements/alternative remedies. 2. A review to specifically ensure our patients have had annual screening for screening for depression, screening for tobacco use, and screening for unhealthy alcohol use. For concerning screenings had a discussion with the patient, provided patient education, and recommended follow-up with primary care provider when appropriate. If patient noted with a risk of falling, they received education on strength, gait, and balance training to prevent future risk of falling. Portions of this note may have been carried over from the previous visit and updated as appropriate. Please note this office utilizes paper charting in addition to the electronic medical record. A list of current medications, vitals, and PMH is available there as the clinical staff outside of myself do not have access to [facility] charting during the clinic day operations. As part of providing quality comprehensive care the current medications, vitals, and PMH were reviewed in the paper chart. Assessment and Plan Assessment and Plan (1) Lumbar stenosis with neurogenic claudication: Assessment and Plan: The patient has had over 3 months of moderate to severe low back and RLE pain with functional impairment and inadequate response to conservative care including NSAIDS (unless there are contraindication such as concurrent blood thinners), multiple oral or topical pain medications, and home exercise program/physical therapy.? Patient has completed >6 weeks of guided home exercise program and/or formal physical therapy program without relief of their symptoms.? (2) Sacroiliitis: Plan repeat right L4-5 L5-S1 TFESI under fluoroscopy, prior injections provided >50% improvement greater than 3 months in lumbar stenosis with NC consider repeat SIJ injections restart meloxicam 7.5mg bid prn pain, take with food continue HEP as tolerated continue otc tylenol prn f/u after injection
--- OUTSIDE RECORDS SUMMARY | 2024-11-07 07:56 | XMS_ITS | CCD ---
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 Role Phone NIKOLAI, DR ALY Attending [...] CHAPA Attending Unavailable MAIA CHAPA Referring Unavailable JERMIAN MENCHACA Primary Care Unavailable Jermain Menchaca MD Primary Care Provider Jermain Menchaca MD Unavailable Junior LEDEZMA, Alberto Ansari Attending Unavailable Junior LEDEZMA, Andhussain Ansari Attending Unavailable Giirasema LEDEZMA, Andhussain Ansari Attending Unavailable Giirasema LEDEZMA, Andrius Ansari Attending Unavailable Giirasema LEDEZMA, Andrius Ansari Attending Unavailable Giirasema LEDEZMA, Alberto Ansari Attending Unavailable Jermain Menchaca MD Primary Care Provider JERMAIN MENCHACA Attending Unavailable JERMAIN MENCHACA Attending Unavailable JERMAIN MENCHACA Attending Unavailable LITA SILVESTRE Attending Unavailable LITA SILVESTRE Attending Unavailable LITA SILVESTRE Referring Unavailable LITA SILVESTRE Attending Unavailable LITA SILVESTRE Referring Unavailable CHATA JARVIS Attending Unavailable CHATA JARVIS Attending Unavailable LITA SILVESTRE Attending Unavailable LITA SILVESTRE Referring Unavailable Medications Current Medications Medication Drug Class(es) Dates Sig (Normalized) Sig (Original) acetaminophen 325 mg oral tablet (20 sources) take 1 tablet by mouth every six hours as needed for pain acetaminophen (Tylenol) 325 MG tablet Take 325 mg by mouth every 6 (six) hours if needed for mild pain. Active take 1 tablet by quinn th every six hours as needed for pain acetaminophen (TYLENOL EXTRA STRENGTH) 5 00 mg tablet Take 1 tablet (500 mg total) by mouth every 6 (six) hours as needed for pain. Active acetaminophen 325 mg / HYDROcodone bitartrate 5 mg oral tablet (20 sources) Opioid Agonist Start: 11-06-2023 take 1 tablet by mouth every six hours as needed HYDROcodone-acetaminophen ([place]) 5-325 MG tablet Take 1 tablet by mouth every 6 (six) hours if needed 11/06/2023 Active ascorbic acid 226 mg / beta carotene 34407 unt / cuprous oxide 0.8 mg / dl-alpha tocopheryl acetate 200 unt / zinc oxide 34.8 mg oral capsule (1 source) Vitamin C take 1 capsule by mouth in the morning vitamins A,C,Q-cxjl-yzaydj (ICAPS AREDS) [id number] drtf-sj-hswm capsule Take 1 capsule by mouth in the morning. Active aspirin 81 mg chewable tablet (1 source) Platelet Aggregation Inhibitor, Nonsteroidal Anti-inflammator y Drug Start: 06-03-2023 aspirin 81 mg chewable tablet Chew 1 tablet (81 mg total) and swallow in the morning. 30 tablet 1 06/03/2023 Active baclofen 10 mg oral tablet (20 sources) gamma-Aminobutyr ic Acid-ergic Agonist Start: 10-06-2022 take 1 tablet by mouth twice daily as needed for muscle spasms baclofen (Lioresal) 10 MG tablet Indications: Cervicalgia Take 1 tablet (10 mg) by mouth 2 (two) times a day as needed for muscle spasms. 60 tablet 2 10/06/2022 Active BIOFLAVONOIDS, CITRUS ORAL (1 source) BIOFLAVONOIDS, C ITRUS ORAL Take by mouth daily. Active finasteride 5 mg oral tablet (20 sources) 5-alpha Reductase Inhibitor Start: 07-15-2022 take 1 tablet by mouth in the morning finasteride (Proscar) 5 MG tablet Take 5 mg by mouth in the morning. 07/15/2022 Active levothyroxine sodium 0.1 mg oral tablet (20 sources) l-Thyroxine Start: 07-04-2024 take 1 tablet by mouth once daily levothyroxine (Synthroid, Levoxyl) 100 MCG tablet Indications: Hypothyroidism, unspecified TAKE 1 TABLET BY MOUTH DAILY *hold on sundays* 90 tablet 3 07/04/2024 Active Start: 07-03-2023 take 1 tablet by quinn th once daily levothyroxine (Synthroid, Levoxyl) 100 MCG tablet Indications: Hypothyroidism, unspecified (CMS/HCC) TAKE 1 TABLET BY MOUTH DAILY; hold on sundays 90 tablet 3 07/03/2023 Active take 1 tablet by quinn th in the morning levothyroxine (SYNTHROID, LEVOTHROID) 100 MCG tablet Take 1 tablet (100 mcg total) by mouth in the morning. Active linaclotide 0.145 mg oral capsule (1 source) Guanylate Cyclase-C Agonist Start: 12-10-2021 take 1 capsule by mouth once daily before breakfast linaCLOtide (LINZESS) 145 mcg capsule Take 1 capsule (145 mcg total) by mouth every morning before breakfast. 30 capsule 1 12/10/2021 Active lisinopril 10 mg oral tablet (20 sources) Angiotensin Converting Enzyme Inhibitor Start: 10-03-2024 take 1 tablet by mouth once daily lisinopril 10 MG tablet Indications: Benign essential hypertension Take 1 tablet (10 mg) by mouth Daily 100 tablet 3 10/03/2024 Active Start: 11-14-2023 take 1 tablet by quinn th once daily lisinopril 10 MG tablet Indications: Benign essential hypertension (CMS/HCC) Take 1 tablet (10 mg) by mouth Daily 100 tablet 3 11/14/2023 Active Start: 08-21-2023 take 1 tablet by quinn th once daily lisinopril 10 MG tablet Indications: Benign essential hypertension (CMS/HCC) Take 1 tablet (10 mg) by mouth Daily 30 tablet 2 08/21/2023 Active lovastatin 20 mg oral tablet (20 sources) HMG-CoA Reductase Inhibitor Start: 04-02-2024 take 1 tablet by mouth at mealtime lovastatin (Mevacor) 20 MG tablet Indications: Pure hypercholesterolemia, unspecified Take 1 tablet (20 mg) by mouth in the evening. Take with meals 100 tablet 3 04/02/2024 Active Start: 04-12-2023 take 1 tablet by quinn th at dinner lovastatin (Mevacor) 20 MG tablet Indications: Pure hypercholesterolemia, unspecified (CMS/HCC) TAKE 1 TABLET BY MOUTH with evening meal 100 tablet 3 04/12/2023 Active meloxicam 15 mg oral tablet (20 sources) Nonsteroidal Anti-inflammatory Drug Start: 07-04-2024 take 1 tablet by mouth at mealtime meloxicam (Mobic) 15 MG tablet Indications: Primary osteoarthritis, right hand TAKE 1 TABLET BY MOUTH IN THE MORNING WITH FOOD 100 tablet 3 07/04/2024 Active Start: 07-03-2023 take 1 tablet by quinn th at mealtime meloxicam (Mobic) 15 MG tablet Indications: Primary osteoarthritis, right hand TAKE 1 TABLET BY MOUTH IN THE MORNING WITH FOOD 100 tablet 3 07/03/2023 Active methylPREDNISolone (5 sources) Corticosteroid Start: 12-19-2023 End: 12-26-2023 methylPREDNISolone (Medrol Dospak) 4 MG tablets Indications: Left-sided low back pain with left-sided sciatica, unspecified chronicity Follow schedule on package instructions 21 tablet 12/19/2023 12/26/2023 Discontinued (Therapy completed) Start: 12-19-2023 methylPREDNISo lone (Medrol Dospak) 4 MG tablets Indications: Left-sided low back pain with left-sided sciatica, unspecified chronicity Follow schedule on package instructions 21 tablet 12/19/2023 Active Nutritional Supplements (PROSTA JENISE PO) (20 sources) Nutritional Supplements (PROSTA JENISE PO) Take by mouth 2 (two) times a day. Active tamsulosin hydrochloride 0.4 mg oral capsule (20 sources) alpha-Adrenergic Andria Start: take 1 capsule by mouth once daily tamsulosin (Flomax) 0.4 MG 24 hr capsule Indications: Retention of urine, unspecified Take 1 capsule (0.4 mg) by mouth Daily 100 capsule 3 10/28/2024 Active Start: 10-28-2024 take 1 capsule by mo uth once daily tamsulosin (Flomax) 0.4 MG 24 hr capsule Indications: Retention of urine, unspecified Take 1 capsule (0.4 mg) by mouth Daily 100 capsule 3 10/28/2024 Active Start: 01-01-2024 End: 10-28-2024 take 1 capsule by mouth every twenty-four hours in the morning tamsulosin (Flomax) 0.4 MG 24 hr capsule Indications: Retention of urine, unspecified TAKE 1 CAPSULE BY MOUTH IN THE MORNING 100 capsule 3 01/01/2024 10/28/2024 Discontinued (Reorder) Start: 10-30-2023 take 1 capsule by mo uth once daily tamsulosin (Flomax) 0.4 MG 24 hr capsule Indications: Retention of urine, unspecified Take 1 capsule (0.4 mg) by mouth Daily 100 capsule 3 10/30/2023 Active Start: 02-07-2023 take 1 capsule by mo uth every twenty-four hours in the morning tamsulosin (Flomax) 0.4 MG 24 hr capsule Indications: Retention of urine, unspecified Take 1 capsule (0.4 mg) by mouth in the morning. 100 capsule 3 02/07/2023 Active Start: 12-10-2021 take 1 capsule by mo uth once daily tamsulosin (FLOMAX) 0.4 mg capsule Take 1 capsule (0.4 mg total) by mouth nightly. 30 capsule 1 12/10/2021 Active traMADol hydrochloride 50 mg oral tablet (11 sources) Opioid Agonist take 1 tablet by mouth every six hours as needed for pain traMADol (Ultram) 50 MG tablet Take 50 mg by mouth every 6 (six) hours if needed for severe pain Active ubidecarenone 30 mg oral capsule (20 sources) co-enzyme Q-10 3 0 MG capsule Take 100 mg by mouth in the morning. Active take 10 capsules by mouth once in the morning coenzyme Q10 30 mg capsule Take 200 mg b y mouth in the morning. Active Wound Dressings (Medihoney wound/burn) gel (8 sources) Start: 12-26-2023 Wound Dressing s (Medihoney wound/burn) gel Indications: Pressure ulcer of [...] Active Problems Problem Classification Problem Date Documented Date Episodic/Chronic Acute cerebrovascular disease (2 sources) Cerebral infarction, unspecified; Translations: [Cerebrovascular accident] Onset: 06-01-2023 06-02-2023 Chronic Acute cerebrovascular disease (2 sources) Acute cerebrovascular disease Onset: 06-01-2023 Aortic and peripheral arterial embolism or thrombosis (20 sources) Embolism and thrombosis of unspecified artery; Translations: [Arterial embolus and thrombosis] Onset: 06-02-2023 Resolved: 01-09-2024 10-30-2023 Chronic Blindness and vision defects (20 sources) Blind right eye, normal vision left eye; Translations: [Blindness, one eye, unspecified eye] Onset: 06-13-2023 06-13-2023 Chronic Chronic kidney disease (20 sources) Chronic kidney disease stage 3B ; Translations: [Stage 3b chronic kidney disease (HCC)] Onset: 10-04-2022 10-04-2022 Chronic Chronic ulcer of skin (4 sources) Pressure ulcer of sacral region, stage 2; Translations: [Pressure ulcer, lower back] 12-26-2023 Chronic Disorders of lipid metabolism (20 sources) Pure hypercholesterolemia; Translations: [Pure hypercholesterolemia, unspecified] Onset: 10-04-2022 10-04-2022 Chronic Essential hypertension (20 sources) Benign essential hypertension; Translations: [Essential (primary) hypertension] Onset: 12-09-2021 10-11-2022 Chronic Genitourinary symptoms and ill-defined conditions (7 sources) Retention of urine, unspecified; Translations: [Acute retention of urine ] Onset: 12-09-2021 Episodic Hyperplasia of prostate (3 sources) Benign prostatic hyperplasia; Translations: [Benign prostatic hyperplasia with lower urinary tract symptoms] Onset: 04-29-2024 04-29-2024 Chronic Immunizations and screening for infectious disease (2 sources) Vaccination needed; Translations: [Encounter for immunization] 12-26-2023 Episodic Osteoarthritis (20 sources) Osteoarthritis of joint of left shoulder region; Translations: [Primary osteoarthritis, left shoulder] Onset: 06-23-2022 06-23-2022 Chronic Other connective tissue disease (20 sources) History of left shoulder arthroplasty; Translations: [Presence of left artificial shoulder joint] Onset: 06-23-2022 06-23-2022 Chronic Other connective tissue disease (20 sources) History of reverse prosthetic total arthroplasty [...] closed fracture] Onset: 11-06-2023 Episodic Other fractures (8 sources) Fracture of multiple pubic rami; Translations: [Other specified fracture of right pubis, subsequent encounter for fracture with routine healing] 11-23-2023 Episodic Other fractures (6 sources) Closed fracture of medial wall of acetabulum; Translations: [Nondisplaced fracture of medial wall of left acetabulum, subsequent encounter for fracture with routine healing] 11-23-2023 Episodic Other nervous system disorders (20 sources) Carpal tunnel syndrome of right wrist; Translations: [Carpal tunnel syndrome, right upper limb] Onset: 10-04-2022 10-04-2022 Chronic Retinal detachments; defects; vascular occlusion; and retinopathy (1 source) Unspecified retinal vascular occlusion; Translations: [Unspecified retinal vascular occlusion] Onset: 06-01-2023 Chronic Spondylosis; intervertebral disc disorders; other back problems (20 sources) Degeneration of lumbar intervertebral disc; Translations: [Degenerative disc disease, lumbar] Onset: 10-04-2022 10-04-2022 Chronic Thyroid disorders (20 sources) Hypothyroidism; Translations: [Hypothyroidism, unspecified] Onset: 12-09-2021 10-04-2022 Chronic Transient cerebral ischemia (20 sources) Transient cerebral ischemic attack, unspecified; Translations: [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] Onset: 06-01-2023 08-21-2023 Chronic Past or Other Problems Problem Classification Problem Date Documented Da te Episodic/Chronic Acute and unspecified renal failure (1 source) Acute renal failure syndrome; Translations: [Acute kidney failure, unspecified] Onset: 12-09-2021 12-09-2021 Episodic Blindness and vision defects (1 source) Visual disturbance; Translations: [Unspecified visual disturbance] Onset: 06-02-2023 06-02-2023 Episodic Fluid and electrolyte disorders (2 sources) Hypo-osmolality and hyponatremia; Translations: [Hyponatremia] Onset: 12-08-2021 12-09-2021 Episodic Heart valve disorders (1 source) Unspecified abnormalities of heart beat; Translations: [Unspecified abnormalities of heart beat] Onset: 06-01-2023 Episodic Malaise and fatigue (1 source) Asthenia; Translations: [Weakness] Onset: 12-09-2021 12-09-2021 Episodic Other connective tissue disease (20 sources) Tear of left rotator cuff; Translations: [Unspecified rotator cuff tear or rupture of left shoulder, not specified as traumatic] Onset: 10-04-2022 10-04-2022 Episodic Other connective tissue disease (20 sources) Pain in hallux; Translations: [Pain in left toe(s)] Onset: 04-10-2023 04-10-2023 Episodic Other diseases of kidney and ureters (3 sources) Disorder of urinary tract; Translations: [Other obstructive and reflux uropathy] Onset: 04-29-2024 04-29-2024 Episodic Other gastrointestinal disorders (20 sources) Constipation; Translations: [Constipation, unspecified] Onset: 12-09-2021 04-10-2023 Episodic Other non-epithelial cancer of skin (20 sources) Basal cell carcinoma of face; Translations: [Basal cell carcinoma of skin of unspecified parts of face] Onset: 10-04-2022 10-04-2022 Episodic Other nutritional; endocrine; and metabolic disorders (20 sources) H/O: thyroid disorder; Translations: [Personal history of other endocrine, nutritional and metabolic disease] Onset: 10-04-2022 10-04-2022 Episodic Phlebitis; thrombophlebitis and thromboembolism (8 sources) History of thromboembolism of vein; Translations: [Personal history of other venous thrombosis and embolism] Onset: 01-09-2024 01-09-2024 Episodic Residual codes; unclassified (20 sources) Family history of ischemic heart disease; Translations: [Family history of ischemic heart disease and other diseases of the circulatory system] Onset: 10-04-2022 10-04-2022 Episodic Screening and history of mental health and substance abuse codes (20 sources) Ex-smoker; Translations: [Personal history of nicotine dependence] Onset: 10-04-2022 10-04-2022 Episodic Skin and subcutaneous tissue infections (20 sources) Paronychia of toe of left foot; Translations: [Cellulitis of left toe] Onset: 04-10-2023 04-10-2023 Episodic Spondylosis; intervertebral disc disorders; other back problems (20 sources) Backache; Translations: [Spinal stenosis of lumbar region] Onset: 12-01-2021 10-04-2022 Episodic Results Test Name Value Interpretation Reference Range Facility CBC (INCLUDES DIFF/PLT)on Basophils (Bld) [#/Vol] 0.039 10*3/uL Normal 0-200 [facility] Comment on above: Performed By: #### 1 0231, 6399 #### [facility] [address] [place], [place] [id number] [employer]dl Dedicated Truck Driver: Naya Guerra #### 7600 #### [facility] [place] [address] [employer]dl Dedicated [employer] Driver: Iron Nicole MD Basophils/100 WBC (Bld) 0.8 % Normal [facility] Comment on above: Performed By: #### 1 0231, 6399 #### [facility] [address] [place] [address] Cdl Dedicated Truck Driver: Naya Guerra #### 7600 #### [facility] [address], [address] [place] [address] Cdl Dedicated Truck Driver: Iron Nicole MD Eosinophils (Bld) [#/Vol] 0.23 10*3/uL Normal 15-500 [facility] Comment on above: Performed By: #### 1 0231, 6399 #### [facility] [address] [place] [address] [employer]dl Dedicated [employer] Driver: Naya Guerra #### 7600 #### [facility] [place] [address] [place] , [address] [place] [address] Cdl Dedicated Truck Driver: Iron Nicole MD Eosinophils/100 WBC (Bld) 4.7 % Normal [facility] Comment on above: Performed By: #### 1 0231, 6399 #### [facility] [address] [place] [address] Cdl Dedicated Truck Driver: Naya Guerra #### 7600 #### [facility] [place] [address] [place] , [address] [place] [address] Cdl Dedicated Truck Driver: Iron Nicole MD Erythrocyte distribution width (RBC) [Ratio] 12.8 % Normal 11.0-15.0 [facility] Comment on above: Performed By: #### 1 0231, 6399 #### [facility] [address] Cdl Dedicated Truck Driver: Naya Guerra #### 7600 #### [facility] [place] [address] [place] , [address] [place] [address] Cdl Dedicated Truck Driver: Iron Nicole MD Hematocrit (Bld) [Volume fraction] 40.0 % Normal 38.5-50.0 [facility] Comment on above: Performed By: #### 1 0231, 6399 #### [facility] [address] Cdl Dedicated Truck Driver: Naya Guerra #### 7600 #### [facility] [place] [address] [place] , [address] [place] [address] Cdl Dedicated Truck Driver: Iron Nicole MD Hemoglobin (Bld) [Mass/Vol] 13.1 g/dL Low 13.2-17.1 [facility] Comment on above: Performed By: #### 1 0231, 6399 #### [facility] [address] [place] [address] Cdl Dedicated Truck Driver: Naya Guerra #### 7600 #### [facility] [place] [address] [facility], [address] [place] [address] Cdl Dedicated Truck Driver: Iron Nicole MD Lymphocytes (Bld) [#/Vol] 1.715 10*3/uL Normal 850-3900 [facility] Comment on above: Performed By: #### 1 023, 6399 #### [facility] [address] [place] [address] Cdl Dedicated Truck Driver: Naya Guerra #### 7600 #### [facility] [place] [address] Cdl Dedicated Truck Driver: Iron Nicole MD Lymphocytes/100 WBC (Bld) 35.0 % Normal [facility] Comment on above: Performed By: #### 1 230, 6399 #### [facility] [address] Cdl Dedicated Truck Driver: Naya Guerra #### 7600 #### [facility] [place] [address] Cdl Dedicated Truck Driver: Iron Nicole MD MCH (RBC) [Entitic mass] 31.7 pg Normal 27.0-33.0 [facility] Comment on above: Performed By: #### 1 230, 6399 #### [facility] [address] Cdl Dedicated Truck Driver: Naya Guerra #### 7600 #### [facility] [place] [address] Cdl Dedicated Truck Driver: Iron Nicole MD MCHC (RBC) [Mass/Vol] 32.8 g/dL Normal 32.0-36.0 [facility] Comment on above: Result Comment: For adults, a slight decrease in the calculated MCHC value (in the range of 30 to 32 g/dL) is most likely not clinically significant; however, it should be interpreted with caution in correlation with other red cell parameters and the patient's clinical condition. Performed By: #### 1 230, 6399 #### [facility] [address] [place] [address] Cdl Dedicated Truck Driver: Naya Guerra #### 7600 #### [facility] of [address], [address] [place] [address] Cdl Dedicated Truck Driver: Iron Nicole MD MCV (RBC) [Entitic vol] 96.9 fL Normal 80.0-100.0 [facility] Comment on above: Performed By: #### 1 0231, 6399 #### [facility] [address] [place] [address] Cdl Dedicated Truck Driver: Naya Guerra #### 7600 #### [facility] of [address], [address] [place] [address] Cdl Dedicated Truck Driver: Iron Nicole MD Monocytes (Bld) [#/Vol] 0.627 10*3/uL Normal 200-950 [facility] Comment on above: Performed By: #### 1 0231, 6399 #### [facility] [address] [place], [place] [id number] Cdl Dedicated Truck Driver: Naya Guerra #### 7600 #### [facility] [address], [address] [place], [place] [address] Cdl Dedicated Truck Driver: Iron Nicole MD Monocytes/100 WBC (Bld) 12.8 % Normal [facility] Comment on above: Performed By: #### 1 0231, 6399 #### [facility] [address] [place] [address] Cdl Dedicated Truck Driver: Naya Guerra #### 7600 #### [facility] of [address] , [address] [place] [address] Cdl Dedicated Truck Driver: Iron Nicole MD Neutrophils (Bld) [#/Vol] 2.288 10*3/uL Normal 8311-7902 [facility] Comment on above: Performed By: #### 1 0231, 6399 #### [facility] [address] [place] [address] Cdl Dedicated Truck Driver: Naya Guerra #### 7600 #### [facility] of [address] , [address] [place] [address] Cdl Dedicated Truck Driver: Iron Nicole MD Neutrophils/100 WBC (Bld) 46.7 % Normal [facility] Comment on above: Performed By: #### 1 0231, 6399 #### [facility] [address] Cdl Dedicated Truck Driver: Naya Guerra #### 7600 #### [facility] [address], [address] [place] [address] Cdl Dedicated Truck Driver: Iron Nicole MD Platelet mean volume (Bld) [Entitic vol] 8.2 fL Normal 7.5-12.5 [facility] Comment on above: Performed By: #### 1 0231, 6399 #### [facility] [address] [place] [address] Cdl Dedicated Truck Driver: Naya Guerra #### 7600 #### [facility] [address], [address] [place] [address] Cdl Dedicated Truck Driver: Iron Nicole MD Platelets (Bld) [#/Vol] 215 10*3/uL Normal 140-400 [facility] Comment on above: Performed By: #### 1 0231, 6399 #### [facility] [address] Cdl Dedicated Truck Driver: Naya Guerra #### 7600 #### [facility] [address], [address] [place] [address] Cdl Dedicated Truck Driver: Iron Nicole MD RBC (Bld) [#/Vol] 4.13 10*6/uL Low 4.20-5.80 [facility] Comment on above: Performed By: #### 1 0231, 6399 #### [facility] [address] [place] [address] Cdl Dedicated Truck Driver: Naya Guerra #### 7600 #### [facility] [address], [address] [place] [address] Cdl Dedicated Truck Driver: Iron Nicole MD WBC (Bld) [#/Vol] 4.9 10*3/uL Normal 3.8-10.8 [facility] Comment on above: Performed By: #### 1 0231, 6399 #### [facility] Cdl Dedicated Truck Driver: Naya Guerra #### 7600 #### [facility] [address], [address] [place] [address] Cdl Dedicated Truck Driver: Iron Nicole MD [facility] 10-31-2024 Albumin [Mass/Vol] 4.3 g/dL Normal 3.6-5.1 [facility] Comment on above: Performed By: #### 1 0231, 6399 #### [facility] Cdl Dedicated Truck Driver: Naya Guerra #### 7600 #### [facility] [address], [address] [place] [address] [employer]dl Dedicated Truck Driver: Iron Nicole MD Albumin/Globulin [Mass ratio] 1.9 {ratio} Normal 1.0-2.5 [facility] Comment on above: Performed By: #### 1 0231, 6399 #### [facility] Cdl Dedicated Truck Driver: Naya Guerra #### 7600 #### [facility] [address], [address] [place] [address] [employer]dl Dedicated Truck Driver: Iron Nicole MD ALP [Catalytic activity/Vol] 52 U/L Normal 35-144 [facility] Comment on above: Performed By: #### 1 0231, 6399 #### [facility] [address] [place], [place] [id number] Cdl Dedicated [employer] Driver: Naya Guerra #### 7600 #### [facility] [address], [address] [place] [address] Cdl Dedicated Truck Driver: Iron Nicole MD ALT [Catalytic activity/Vol] 17 U/L Normal 9-46 [facility] Comment on above: Performed By: #### 1 0231, 6399 #### [facility] [address] [place], [place] [id number] Cdl Dedicated Truck Driver: Naya Guerra #### 7600 #### [facility] [address], [address] [place] [address] [employer]dl Dedicated Truck Driver: Iron Nicole MD AST [Catalytic activity/Vol] 24 U/L Normal 10-35 [facility] Comment on above: Performed By: #### 1 230, 6399 #### [facility] [address] [place], [place] [id number] [employer]dl [employer] Driver: Naya Guerra #### 7600 #### [facility] [address], [address] [place] [address] [employer]dl [employer]icated [employer] Driver: Iron Nicole MD Bilirubin [Mass/Vol] 0.6 mg/dL Normal 0.2-1.2 [facility] Comment on above: Performed By: #### 1 230, 63 #### [facility] [address] [place] [address] [employer]dl [employer]icated [employer] Driver: Naya Guerra #### 7600 #### [facility] [address], [address] [place] [address] [employer]dl [employer]icated [employer] Driver: Iron Nicole MD BUN/CREATININE RATIO SEE NOTE: Normal 6-22 [facility] Comment on above: Result Comment: Not Reported: BUN and Creatinine are within reference range. Performed By: #### 1 230, 63 #### [facility] [address] [place], [place] [address] [employer]dl [employer] Driver: Naya Guerra #### 7600 #### [facility] [address], [address] [place] [address] [employer]dl [employer]icated [employer] Driver: Iron Nicole MD Calcium [Mass/Vol] 9.2 mg/dL Normal 8.6-10.3 [facility] Comment on above: Performed By: #### 1 230, 6399 #### [facility] [address] [place], [place] [address] Cdl [employer] Driver: Naya Guerra #### 7600 #### [facility] [address], [address] [place] [address] [employer]dl [employer]icated [employer] Driver: Iron Nicole MD Chloride [Moles/Vol] 100 mmol/L Normal 98-110 [facility] Comment on above: Performed By: #### 1 0231, 6399 #### [facility] [address] [place], [place] [address] Cdl [employer] Driver: Naya Guerra #### 7600 #### [facility] [address], [address] [place] [address] Cdl [employer]icated [employer] Driver: Iron Nicole MD CO2 [Moles/Vol] 29 mmol/L Normal 20-32 [facility] Comment on above: Performed By: #### 1 0231, 6399 #### [facility] [address] Cdl [employer]icated [employer] Driver: Naya Guerra #### 7600 #### [facility] [address], [address] [place] [address] Cdl [employer]icated [employer] Driver: Iron Nicole MD Creatinine [Mass/Vol] 1.17 mg/dL Normal 0.70-1.22 [facility] Comment on above: Performed By: #### 1 0231, 6399 #### [facility] [address] Cdl [employer]icated [employer] Driver: Naya Guerra #### 7600 #### [facility] [address], [address] [place] [address] Cdl Dedicated Truck Driver: Iron Nicole MD GFR/1.73 sq M.predicted among non-blacks MDRD (S/P/Bld) [Vol rate/Area] 60 mL/min/{1.73_m2} Normal > OR = 60 [facility] Comment on above: Performed By: #### 1 0231, 6399 #### [facility] Cdl Dedicated Truck Driver: Naya Guerra #### 7600 #### [facility] [place] [address], [address] [place] [address] Cdl [employer]icated [employer] Driver: Iron Nicole MD Globulin (S) [Mass/Vol] 2.3 g/dL Normal 1.9-3.7 [facility] Comment on above: Performed By: #### 1 0231, 6399 #### [facility] [address] Cdl [employer]icated [employer] Driver: Naya Guerra #### 7600 #### [facility] [address], [address] [place] [address] Cdl Dedicated [employer] Driver: Iron Nicole MD Glucose [Mass/Vol] 97 mg/dL Normal 65-99 [facility] Comment on above: Result Comment: Fasting reference interval Performed By: #### 1 0231, 6399 #### [facility] [address] Cdl [employer]icated [employer] Driver: Naya Guerra #### 7600 #### [facility] [address], [address] [place] [address] Cdl Dedicated [employer] Driver: Iron Nicole MD Potassium [Moles/Vol] 4.9 mmol/L Normal 3.5-5.3 [facility] Comment on above: Performed By: #### 1 0231, 6399 #### [facility] [address] Cdl Dedicated [employer] Driver: Naya Guerra #### 7600 #### [facility] [address], [address] [place] [address] Cdl Dedicated [employer] Driver: Iron Nicole MD Protein [Mass/Vol] 6.6 g/dL Normal 6.1-8.1 [facility] Comment on above: Performed By: #### 1 0231, 6399 #### [facility] [address] [place] [address] Cdl [employer]icated [employer] Driver: Naya Guerra #### 7600 #### [facility] [address], [address] [place] [address] Cdl Dedicated [employer] Driver: Iron Nicole MD Sodium [Moles/Vol] 135 mmol/L Normal 135-146 [facility] Comment on above: Performed By: #### 1 0231, 6399 #### [facility] [address] [place] [address] Cdl [employer] Driver: Naya Guerra #### 7600 #### [facility] [address], [address] Cdl Dedicated Truck Driver: Iron Nicole MD Urea nitrogen [Mass/Vol] 21 mg/dL Normal 7-25 [facility] Comment on above: Performed By: #### 1 0231, 6399 #### [facility] [address] [place] [address] Cdl [employer]icated Truck Driver: Naya Guerra #### 7600 #### [facility] [address] , [address] [place] [address] Cdl [employer]icated Truck Driver: Iron Nicole MD LIPID PANEL, [facility] 10-21 Cholesterol [Mass/Vol] 158 mg/dL Normal <200 [facility] Comment on above: Order Comment: FASTI NG:YES FASTING: YES Performed By: #### 1 0231, 6399 #### [facility] [address] [place] [address] Cdl [employer]icated [employer] Driver: Naya Guerra #### 7600 #### [facility] [address] , [address] [place], [place] [address] Cdl [employer]icated Truck Driver: Iron Nicole MD Cholesterol in HDL [Mass/Vol] 45 mg/dL Normal > OR = 40 [facility] Comment on above: Order Comment: FASTI NG:YES FASTING: YES Performed By: #### 1 0231, 6399 #### [facility] [address] [place] [address] Cdl [employer]icated [employer] Driver: Naya Guerra #### 7600 #### [facility] [address], [address] [place] [address] Cdl [employer]icated [employer] Driver: Iron Nicole MD Cholesterol in LDL [Mass/Vol] 94 mg/dL Normal [facility] Comment on above: Order Comment: FASTI NG:YES FASTING: YES Result Comment: Refe rence range: <100 Desirable range <100 mg/dL for primary prevention; <70 mg/dL for patients with CHD or diabetic patients with > or = 2 CHD risk factors. LDL-C is now calculated using the Robert calculation, which is a validated novel method providing better accuracy than the Friedewald equation in the estimation of LDL-C. Jaycob SS et al. SUSAN. 2013;310(49): 8239-6505 (http://education.[employer]/faq/XRC570) Performed By: #### 1 0231, 6399 #### [facility] [address] [place], [place] [address] Cdl Dedicated Truck Driver: Naya Guerra #### 7600 #### [facility] [address], [address] [place] [address] Cdl Dedicated Truck Driver: Iron Nicole MD Cholesterol.total/ Cholesterol in HDL [Mass ratio] 3.5 {ratio} Normal <5.0 [facility] Comment on above: Order Comment: FASTI NG:YES FASTING: YES Performed By: #### 1 0231, 6399 #### [facility] [address] [place], [place] [address] Cdl [employer]icated [employer] Driver: Naya Guerra #### 7600 #### [facility] [address], [address] [place], [place] [address] Cdl Dedicated Truck Driver: Iron Nicole MD NON HDL CHOLESTEROL 113 mg/dL (calc) Normal <130 [facility] Comment on above: Order Comment: FASTI NG:YES FASTING: YES Result Comment: For patients with diabetes plus 1 major ASCVD risk factor, treating to a non-HDL-C goal of <100 mg/dL (LDL-C of <70 mg/dL) is considered a therapeutic option. Performed By: #### 1 0231, 6399 #### [facility] [address] [place] [address] Cdl [employer]icated [employer] Driver: Naya Guerra #### 7600 #### [facility] [address], [address] [place] [address] Cdl Dedicated Truck Driver: Iron Nicole MD Triglyceride [Mass/Vol] 99 mg/dL Normal <150 [facility] Comment on above: Order Comment: FASTI NG:YES FASTING: YES Performed By: #### 1 0231, 6399 #### [facility] [address] [place] [address] Cdl Dedicated Truck Driver: Naya Guerra #### 7600 #### [facility] [address] [facility], [address] [place] [address] Cdl Dedicated Truck Driver: Iron Nicole MD XR Pelvis 1 or 2 [facility] Result: 01/16/2024 AP pelvis demonstrate well healing healing right pubic rami fracture and healing left acetabulum fracture in acceptable alignment with increased callus formation. No signs of displacement. Impression: Healing right pubic rami and left acetabulum fracture. Lita Silvestre APRNDARLENE [facility] [employer] Study observation (narrative) [facility] [employer] XR Pelvis 1 or 2 [facility] Result: 12/19/2023 AP pelvis demonstrate healing right pubic rami fracture and healing left acetabulum fracture in acceptable alignment with increased callus formation. No definitive union of right pubic rami fracture. No signs of displacement. Impression: Healing right pubic rami and left acetabulum fracture. Lita ST [facility] [employer] XR Pelvis 1 or 2 ViewsOr[employer] d By: Enrique Rutherford on 12-21-2023 [email or web address] Work Phone: XR Pelvis 1 or 2 [facility] Study observation (narrative) [employer] XR Pelvis 1 or 2 [facility] Result: 11/23/2023 AP pelvis demonstrated stable right pubic rami fracture and healing left acetabulum fracture in acceptable alignment. No signs of displacement Impression: Stable right pubic rami and left acetabulum fracture. Lita Silvestre APRNFLOATING [facility] FOR CHILDR[facility] [employer] XR Pelvis 1 or 2 ViewsOrdere d By: Enrique Rutherford on 11-24-2023 [email or web address] Work Phone: XR Pelvis 1 or 2 [facility] Study observation (narrative) [facility] BASIC METABOLIC PANLon 11-05 Anion gap [Moles/Vol] 11 mmol/L Normal 5-15 [facility] Comment on above: Performed By: #### C BCA, BMP ####[facility] ([id number])[address] [place] [address] Calcium [Mass/Vol] 8.6 mg/dL Normal 8.5-10.[address] [facility] Comment on above: Performed By: #### C BCA, BMP ####[facility] ([id number])[address] [place] [address] Chloride [Moles/Vol] 94 mmol/L Low 98-109 [facility] Comment on above: Performed By: #### C BCA, BMP ####[facility] ([id number])[address] [place] [address] CO2 [Moles/Vol] 24 mmol/L Normal 22-32 [facility] Comment on above: Performed By: #### C BCA, BMP ####[facility] ([id number])[address] [place] [address] Creatinine [Mass/Vol] 1.18 mg/dL Normal 0.70-1.20 [facility] Comment on above: Result Comment: METH OD TRACEABLE TO IDMS STANDARD Performed By: #### C BCA, BMP ####[facility] ([id number])[address] [place] [address] GFR/1.73 sq M.predicted among non-blacks MDRD (S/P/Bld) [Vol rate/Area] 60 mL/min/{1.73_m2} Normal >59 [facility] Comment on above: Result Comment: Reported eGFR is based on the CKD-EPI 2020 equation that does not use a race coefficient. Performed By: #### C BCA, BMP ####[facility] ([id number])[address] [place] [address], [place] [address] Glucose [Mass/Vol] 138 mg/dL High 65-[address] [facility] Comment on above: Performed By: #### C ANH, BMP ####[facility] ([id number])[address] [place] [address], [place] [address] Potassium [Moles/Vol] 4.3 mmol/L Normal 3.5-5.0 [facility] Comment on above: Performed By: #### C ANH, BMP ####[facility] ([id number])[address] [place] [address] Sodium [Moles/Vol] 129 mmol/L Low 134-[address] [facility] Comment on above: Performed By: #### C ANH, BMP ####[facility] ([id number])[address] [place] [address] [place] [address] Urea nitrogen [Mass/Vol] 27 mg/dL Normal 5-27 [facility] Comment on above: Performed By: #### C ANH, BMP ####[facility] ([id number])[address] [place] [address] [place] [address] CBC AND AUTO DIFFon 11-06-19 24 ABSOLUTE BASOPHIL 0.0 X10E9/L Normal 0.0-0.[address] [facility] Comment on above: Performed By: #### C ANH, BMP ####[facility] ([id number])[address] [place] [address] [place] [address] ABSOLUTE NEUTROPHIL 6.4 X10E9/L Normal 1.5-6.6 [facility] Comment on above: Performed By: #### C BCA, BMP ####[facility] ([id number])[address] [place] [address] [place] [address] Basophils/100 WBC (Bld) 0.2 % Normal [facility] Comment on above: Performed By: #### C ANH, BMP ####[facility] ([id number])[address] [place] [address] Eosinophils (Bld) [#/Vol] 0.1 10*3/uL Normal 0.0-0.4 [facility] Comment on above: Performed By: #### C ANH, BMP ####[facility] ([id number])[address] [place] [address] Eosinophils/100 WBC (Bld) 0.7 % Normal [facility] Comment on above: Performed By: #### C ANH, BMP ####[facility] ([id number])[address] [place] [address] Erythrocyte distribution width (RBC) [Ratio] 13.4 % Normal 11.5-15.0 [facility] Comment on above: Performed By: #### C ANH, BMP ####[facility] ([id number])[address] [place] [address] Hematocrit (Bld) [Volume fraction] 35.2 % Low 39-49 [facility] Comment on above: Performed By: #### C ANH, BMP ####[facility] ([id number])[address] [place] [address] Hemoglobin (Bld) [Mass/Vol] 11.9 g/dL Low 13.0-17.0 [facility] Comment on above: Performed By: #### C ANH, BMP ####[facility] ([id number])[address] [place] [address] Lymphocytes (Bld) [#/Vol] 0.8 10*3/uL Low 1.0-3.5 [facility] Comment on above: Performed By: #### C ANH, BMP ####[facility] ([id number])[address] [place] [address] Lymphocytes/100 WBC (Bld) 10.2 % Normal [facility] Comment on above: Performed By: #### C ANH, BMP ####[facility] ([id number])[address] [place] [address] MCH (RBC) [Entitic mass] 32.4 pg Normal 27-34 [facility] Comment on above: Performed By: #### C ANH, BMP ####[facility] ([id number])[address] [place] [address] MCHC (RBC) [Mass/Vol] 33.9 g/dL Normal 32-36 [facility] Comment on above: Performed By: #### C ANH, BMP ####[facility] ([id number])[address] [place] [address] MCV (RBC) [Entitic vol] 96 fL Normal 80-100 [facility] Comment on above: Performed By: #### C ANH, BMP ####[facility] ([id number])[address] [place] [address] Monocytes (Bld) [#/Vol] 0.8 10*3/uL Normal 0-0.9 [facility] Comment on above: Performed By: #### C ANH, BMP ####[facility] ([id number])[address] [place] [address] Monocytes/100 WBC (Bld) 9.5 % Normal [facility] Comment on above: Performed By: #### C ANH, BMP ####[facility] ([id number])[address] [place] [address] Neutrophils/100 WBC (Bld) 79.4 % Normal [facility] Comment on above: Performed By: #### C ANH, BMP ####[facility] ([id number])[address] [place] [address] Platelet mean volume (Bld) [Entitic vol] 6.0 fL Low 7-12 [facility] Comment on above: Performed By: #### C ANH, BMP ####[facility] ([id number])[address] [place] [address] Platelets (Bld) [#/Vol] 225 10*3/uL Normal 150-450 [facility] Comment on above: Performed By: #### C ANH, BMP ####[facility] ([id number])[address] [place] [address] RBC COUNT 3.68 X10E12/L Low 4.10-5.70 [facility] Comment on above: Performed By: #### C ANH, BMP ####[facility] ([id number])[address] [place] [address] WBC (Bld) [#/Vol] 8.0 10*3/uL Normal 4.0-11.[address] [facility] Comment on above: Performed By: #### C ANH, BMP ####[facility] ([id number])[address] [place] [address] ABDOMEN AND PELVIS W CONT on [...] Hay MD on 11/06/2023 10:03 AM Normal [facility] XR CHEST 1 VWon 11-06-2023 XR CHEST [...] Acosta MD on 11/06/2023 8:58 AM Normal [facility] MR BRAIN W WO CONTon 024 MR [...] Mcleod MD on 06/02/2023 7:34 AM Normal [facility] CBC AND AUTO DIFFon 06-01-19 24 ABSOLUTE BASOPHIL 0.0 X10E9/L Normal 0.0-0.[address] [facility] Comment on above: Performed By: #### 1 4979-9, CBCA, 35607-6, 66119-6, 80192-1, PINR, CMP, THYR #### [facility] ([id number]) [address] [place] [address] #### 45657-0 #### [facility] ([id number]) [address] [place] [address] ABSOLUTE NEUTROPHIL 2.9 X10E9/L Normal 1.5-6.6 [facility] Comment on above: Performed By: #### 1 4979-9, CBCA, 34983-7, 70846-2, 17944-2, PINR, CMP, THYR #### [facility] ([id number]) [address] [place] [address] #### 75452-5 #### [facility] ([id number]) [address] [place] [address] Basophils/100 WBC (Bld) 0.7 % Normal [facility] Comment on above: Performed By: #### 1 4979-9, CBCA, 74901-4, 09913-4, 17332-2, PINR, CMP, THYR #### [facility] ([id number]) [address] [place] [address] #### 66797-5 #### [facility] ([id number]) [address], [address] [place] [address] Eosinophils (Bld) [#/Vol] 0.1 10*3/uL Normal 0.0-0.4 [facility] Comment on above: Performed By: #### 1 4979-9, CBCA, 95319-9, 13405-5, 97225-6, PINR, CMP, THYR #### [facility] ([id number]) [address] [place] [address] #### 97467-7 #### [facility] ([id number]) [address], [address] [place] [address] Eosinophils/100 WBC (Bld) 1.5 % Normal [facility] Comment on above: Performed By: #### 1 4979-9, CBCA, 18802-5, 28497-4, 75493-8, PINR, CMP, THYR #### [facility] ([id number]) [address] [place] [address] #### 45400-3 #### [facility] ([id number]) [address], [address] [place] [address] Erythrocyte distribution width (RBC) [Ratio] 12.5 % Normal 11.5-15.0 [facility] Comment on above: Performed By: #### 1 4979-9, CBCA, 81229-1, 82444-6, 03941-3, PINR, CMP, THYR #### [facility] ([id number]) [address] [place] [address]263 #### 74053-1 #### [facility] ([id number]) [address], [address] [place] [address] Hematocrit (Bld) [Volume fraction] 39.5 % Normal 39-49 [facility] Comment on above: Performed By: #### 1 4979-9, CBCA, 94449-3, 32183-9, 69838-2, PINR, CMP, THYR #### [facility] ([id number]) [address] [place] [address]05 #### 71719-4 #### [facility] ([id number]) [address], [address] [place] [address] Hemoglobin (Bld) [Mass/Vol] 13.7 g/dL Normal 13.0-17.0 [facility] Comment on above: Performed By: #### 1 4979-9, CBCA, 24223-2, 76770-5, 29777-6, PINR, CMP, THYR #### [facility] ([id number]) [address] [place] [address] 12084 #### 88828-9 #### [facility] ([id number]) [address] [place] [address] Lymphocytes (Bld) [#/Vol] 1.6 10*3/uL Normal 1.0-3.5 [facility] Comment on above: Performed By: #### 1 4979-9, CBCA, 66895-8, 08988-2, 20674-0, PINR, CMP, THYR #### [facility] ([id number]) [address] [place] [address] #### 52074-8 #### [facility] ([id number]) [address], [address] [place] [address] Lymphocytes/100 WBC (Bld) 30.9 % Normal [facility] Comment on above: Performed By: #### 1 4979-9, CBCA, 99860-1, 62863-4, 55629-0, PINR, CMP, THYR #### [facility] ([id number]) [address] [place] [address]29 #### 41762-2 #### [facility] ([id number]) [address], [address] [place] [address] MCH (RBC) [Entitic mass] 32.8 pg Normal 27-34 [facility] Comment on above: Performed By: #### 1 4979-9, CBCA, 60726-2, 12567-0, 56573-7, PINR, CMP, THYR #### [facility] ([id number]) [address] [place] [address] 23780 #### 87780-8 #### [facility] ([id number]) [address], [address] [place] [address] MCHC (RBC) [Mass/Vol] 34.6 g/dL Normal 32-36 [facility] Comment on above: Performed By: #### 1 4979-9, CBCA, 56596-0, 21476-9, 76010-9, PINR, CMP, THYR #### [facility] ([id number]) [address] [place] [address]71 #### 78883-9 #### [facility] ([id number]) [address] [place] [address] MCV (RBC) [Entitic vol] 95 fL Normal 80-100 [facility] Comment on above: Performed By: #### 1 4979-9, CBCA, 53864-1, 31425-1, 36676-0, PINR, CMP, THYR #### [facility] ([id number]) [address] [place] [address] 27943 #### 36283-8 #### [facility] ([id number]) [address], [address] [place] [address] Monocytes (Bld) [#/Vol] 0.6 10*3/uL Normal 0-0.9 [facility] Comment on above: Performed By: #### 1 4979-9, CBCA, 07500-6, 50099-3, 18986-3, PINR, CMP, THYR #### [facility] ([id number]) [address] [place] [address] #### 32143-7 #### [facility] ([id number]) [address], [address] [place] [address] Monocytes/100 WBC (Bld) 10.8 % Normal [facility] Comment on above: Performed By: #### 1 4979-9, CBCA, 98885-8, 40934-7, 48149-2, PINR, CMP, THYR #### [facility] ([id number]) [address] [place], [place] [address] #### 50565-2 #### [facility] ([id number]) [address], [address] [place] [address] Neutrophils/100 WBC (Bld) 56.1 % Normal [facility] Comment on above: Performed By: #### 1 4979-9, CBCA, 82325-7, 58460-8, 04485-6, PINR, CMP, THYR #### [facility] ([id number]) [address] [place], [place] [address] #### 04059-2 #### [facility] ([id number]) [address], [address] [place] [address] Platelet mean volume (Bld) [Entitic vol] 6.8 fL Low 7-12 [facility] Comment on above: Performed By: #### 1 4979-9, CBCA, 87755-4, 59407-9, 19674-7, PINR, CMP, THYR #### [facility] ([id number]) [address] [place] [address] 14123 #### 11207-7 #### [facility] ([id number]) [address] [place] [address] Platelets (Bld) [#/Vol] 206 10*3/uL Normal 150-450 [facility] Comment on above: Performed By: #### 1 4979-9, CBCA, 69974-7, 87984-4, 03694-2, PINR, CMP, THYR #### [facility] ([id number]) [address] [place] [address] 48998 #### 63481-4 #### [facility] ([id number]) [address], [address] [place] [address] RBC COUNT 4.17 X10E12/L Normal 4.10-5.70 [facility] Comment on above: Performed By: #### 1 4979-9, CBCA, 34934-3, 16184-4, 13101-3, PINR, CMP, THYR #### [facility] ([id number]) [address] [place] [address] #### 88260-4 #### [facility] ([id number]) [address], [address] [place] [address] WBC (Bld) [#/Vol] 5.1 10*3/uL Normal 4.0-11.[address] [facility] Comment on above: Performed By: #### 1 4979-9, CBCA, 61682-9, 99065-5, 92262-5, PINR, CMP, THYR #### [facility] ([id number]) [address] [place] [address] #### 31274-8 #### [facility] ([id number]) [address], [address] [place] [address] COMPREHENSIVE METABOLIC PANE Kory 06-01-2023 Albumin [Mass/Vol] 4.5 g/dL Normal 3.2-5.[address] [facility] Comment on above: Performed By: #### 1 4979-9, CBCA, 79666-5, 96570-2, 39025-6, PINR, CMP, THYR #### [facility] ([id number]) [address] [place] [address] 97839 #### 74213-4 #### [facility] ([id number]) [address], [address] [place] [address] ALP [Catalytic activity/Vol] 56 U/L Normal 39-130 [facility] Comment on above: Performed By: #### 1 4979-9, CBCA, 42942-9, 58098-1, 90317-5, PINR, CMP, THYR #### [facility] ([id number]) [address] [place] [address] 82499 #### 59063-6 #### [facility] ([id number]) [address], [address] [address] ALT [Catalytic activity/Vol] 26 U/L Normal 0-40 [facility] Comment on above: Performed By: #### 1 4979-9, CBCA, 66856-1, 27090-2, 33029-4, PINR, CMP, THYR #### [facility] ([id number]) [address] [place] [address]8410 #### 56003-4 #### [facility] ([id number]) [address], [address] [place] [address] Anion gap [Moles/Vol] 3 mmol/L Low 5-15 [facility] Comment on above: Performed By: #### 1 4979-9, CBCA, 16306-7, 61890-2, 53991-0, PINR, CMP, THYR #### [facility] ([id number]) [address] [place] [address] 30566 #### 05190-0 #### [facility] ([id number]) [address], [address] [place] [address] AST [Catalytic activity/Vol] 32 U/L Normal 0-41 [facility] Comment on above: Performed By: #### 1 4979-9, CBCA, 10727-7, 26350-6, 43017-7, PINR, CMP, THYR #### [facility] ([id number]) [address] [place] [address] 93970 #### 62462-3 #### [facility] ([id number]) [address], [address] [place] [address] Bilirubin [Mass/Vol] 0.8 mg/dL Normal 0.3-1.2 [facility] Comment on above: Performed By: #### 1 4979-9, CBCA, 28995-9, 89523-4, 43464-2, PINR, CMP, THYR #### [facility] ([id number]) [address] [place] [address] 80711 #### 66039-1 #### [facility] ([id number]) [address], [address] [place] [address] Calcium [Mass/Vol] 8.8 mg/dL Normal 8.5-10.[address] [facility] Comment on above: Performed By: #### 1 4979-9, CBCA, 94939-3, 51880-5, 25632-2, PINR, CMP, THYR #### [facility] ([id number]) [address] [place] [address]127 #### 48500-8 #### [facility] ([id number]) [address] [place] [address] Chloride [Moles/Vol] 104 mmol/L Normal 98-109 [facility] Comment on above: Performed By: #### 1 4979-9, CBCA, 01212-7, 32787-1, 92527-0, PINR, CMP, THYR #### [facility] ([id number]) [address] [place] [address]79 #### 32330-4 #### [facility] ([id number]) [address], [address] [place] [address] CO2 [Moles/Vol] 27 mmol/L Normal 22-32 [facility] Comment on above: Performed By: #### 1 4979-9, CBCA, 26799-7, 85487-2, 23792-8, PINR, CMP, THYR #### [facility] ([id number]) [address] [place] [address] #### 02897-8 #### [facility] ([id number]) [address] [facility] [facility] [address] [place] [address] Creatinine [Mass/Vol] 1.25 mg/dL High 0.70-1.20 [facility] Comment on above: Result Comment: METH OD TRACEABLE TO IDMS STANDARD Performed By: #### 1 4979-9, CBCA, 13172-6, 50732-2, 92127-5, PINR, CMP, THYR #### [facility] ([id number]) [address] [place] [address] 39469 #### 14353-0 #### [facility] ([id number]) [address], [address] [place] [address] GFR/1.73 sq M.predicted among non-blacks MDRD (S/P/Bld) [Vol rate/Area] 56 mL/min/{1.73_m2} Low >59 [facility] Comment on above: Result Comment: Reported eGFR is based on the CKD-EPI 2020 equation that does not use a race coefficient. Performed By: #### 1 4979-9, CBCA, 47243-6, 09255-6, 63088-8, PINR, CMP, THYR #### [facility] ([id number]) [address] [place] [address] 46[address] #### 21098-0 #### [facility] ([id number]) [address], [address] [place] [address] Glucose [Mass/Vol] 104 mg/dL High 65-[address] [facility] Comment on above: Performed By: #### 1 4979-9, CBCA, 75237-4, 49613-2, 78000-5, PINR, CMP, THYR #### [facility] ([id number]) [address] [place] [address] 46850 #### 07619-2 #### [facility] ([id number]) [address], [address] [place] [address] Potassium [Moles/Vol] 4.3 mmol/L Normal 3.5-5.0 [facility] Comment on above: Performed By: #### 1 4979-9, CBCA, 42664-9, 95077-7, 77263-3, PINR, CMP, THYR #### [facility] ([id number]) [address] [place] [address] 57412 #### 22561-5 #### [facility] ([id number]) [address], [address] [place] [address] Protein [Mass/Vol] 7.3 g/dL Normal 6.0-8.[address] [facility] Comment on above: Performed By: #### 1 4979-9, CBCA, 48009-5, 57996-2, 77931-9, PINR, CMP, THYR #### [facility] ([id number]) [address] [place] [address] #### 47495-6 #### [facility] ([id number]) [address], [address] [place] [address] Sodium [Moles/Vol] 134 mmol/L Normal 134-[address] [facility] Comment on above: Performed By: #### 1 4979-9, CBCA, 42555-2, 61180-0, 92110-4, PINR, CMP, THYR #### [facility] ([id number]) [address] [place] [address] 81950 #### 38493-8 #### [facility] ([id number]) [address], [address] [place] [address] Urea nitrogen [Mass/Vol] 24 mg/dL Normal 5-27 [facility] Comment on above: Performed By: #### 1 4979-9, CBCA, 61162-8, 04346-8, 98843-8, PINR, CMP, THYR #### [facility] ([id number]) [address] [place] [address] 30668 #### 12749-2 #### [facility] ([id number]) [address], [address] [place] [address] CT BRAIN WO CONT STROKE ALER Ton [...] Camacho MD on 06/01/2023 4:12 PM Normal [facility] CT CTA CAROTIDon 06-01-2023 CT CTA CAROTID [...] low as reasonably achievable. NOTE: The [place] Symptomatic Carotid Endarterectomy Trial (NASCET)calculation of ICA [...] Mcleod MD on 06/01/2023 4:19 PM Normal [facility] CT CTA HEADon 06-01-2023 CT CTA HEAD [...] Agustin MD on 06/01/2023 4:19 PM Normal [facility] Fibrin D-dimer DDU (PPP) [Ma ss/Vol]on 06-01-2023 D DIMER 364 ng/mL DDU High <255 [facility] Comment on above: Result Comment: Results >=255ng/mL [...] level. Performed By: #### 1 4979-9, CBCA, 25663-5, 65504-4, 28976-9, PINR, CMP, THYR #### [facility] ([id number]) [address] [place] [address], [place] [address] #### 09445-0 #### [facility] ([id number]) [address] [facility], [address] [place] [address] Glucose Glucometer (BldC) [M ass/Vol]on 06-01-2023 Glucose [Mass/Vol] 106 mg/dL High 65-[address] [facility] HGB A1C (GLYCO-HGB)on 2023 Glucose [Mass/Vol] 111 mg/dL Normal [facility] Comment on above: Performed By: #### 1 4979-9, CBCA, 84242-5, 02131-1, 42295-4, PINR, CMP, THYR ####[facility] ([id number])[address] [place] [address]#### 47512-9 ####[facility] ([id number])[address] [place] [address], [address] [address] HbA1c (Bld) [Mass fraction] 5.5 % Normal 4.4-5.6 [facility] Comment on above: Result Comment: NOTE ADA Guidelines Result HgbA1c Normal : less than 5.7 % Prediabetes : 5.7 % to 6.4 % Diabetes : > 6.4 % Use with caution in patients with abnormal hemoglobin variants as the half-life of red blood cells and in vivo glycation rates are affected. Performed By: #### 1 4979-9, CBCA, 72188-5, 76490-2, 57150-3, PINR, CMP, THYR ####[facility] ([id number])[address] [place] [address]11#### 13684-0 ####[facility] ([id number])[address] [place] [address] Lipid 1996 panelon Cholesterol [Mass/Vol] 169 mg/dL Normal 150-200 [facility] Comment on above: Performed By: #### 1 4979-9, CBCA, 57577-8, 77631-4, 57249-9, PINR, CMP, THYR ####[facility] ([id number])[address] [place] [address] 91089#### 24968-4 ####[facility] ([id number])[address] [facility], [address] [place] [address] Cholesterol in HDL [Mass/Vol] 40 mg/dL Normal >39 [facility] Comment on above: Result Comment: HDL <40 mg/dL - High Risk HDL > or = 40mg/dL- Desirable HDL >60 mg/dL - Negative Risk Performed By: #### 1 4979-9, CBCA, 95381-2, 17240-3, 16052-8, PINR, CMP, THYR ####[facility] ([id number])[address] [place] [address] 65495#### 73540-5 ####[facility] ([id number])[address] [facility], [address] [place] [address] Cholesterol in LDL [Mass/Vol] 69 mg/dL Normal <130 [facility] Comment on above: Result Comment: LDL <100 mg/dL - Desirable LDL >160 mg/dL - High Risk Performed By: #### 1 4979-9, CBCA, 57092-3, 74238-2, 00261-8, PINR, CMP, THYR ####[facility] ([id number])[address] [place] [address] 35278#### 10766-9 ####[facility] ([id number])[address] [facility], [address] [place] [address] Cholesterol in VLDL [Mass/Vol] 60 mg/dL High 0-30 [facility] Comment on above: Performed By: #### 1 4979-9, CBCA, 46171-5, 02563-6, 78137-8, PINR, CMP, THYR ####[facility] ([id number])[address] [place] [address] 23954#### 68990-5 ####[facility] ([id number])[address], [address] [place] [address] CHOLESTEROL:HDL 4.2 Normal 1.0-5.0 [facility] Comment on above: Performed By: #### 1 4979-9, CBCA, 08407-4, 13273-7, 04006-1, PINR, CMP, THYR ####[facility] ([id number])[address] [place] [address] 42512#### 36297-3 ####[facility] ([id number])[address], [address] [place] [address] Triglyceride [Mass/Vol] 301 mg/dL High 27-150 [facility] Comment on above: Performed By: #### 1 4979-9, CBCA, 50536-2, 43249-8, 71298-2, PINR, CMP, THYR ####[facility] ([id number])[address] [place] [address] 88622#### 56104-3 ####[facility] ([id number])[address], [address] [place] [address] MAGNESIUMon 06-01-2023 Magnesium [Mass/Vol] 2.0 mg/dL Normal 1.8-2.6 [facility] Comment on above: Performed By: #### 1 4979-9, CBCA, 89135-9, 23425-8, 65680-8, PINR, CMP, THYR #### [facility] ([id number]) [address] [place] [address] 81426 #### 89985-9 #### [facility] ([id number]) [address] [facility], [address] [place] [address] PROTIME AND INRon 06-01-2023 INR Coag (PPP) [Relative time] 1.0 {INR} Normal 0.8-1.1 [facility] Comment on above: Performed By: #### 1 4979-9, CBCA, 18652-6, 32873-0, 62691-4, PINR, CMP, THYR #### [facility] ([id number]) [address] [place] [address] 81097 #### 49613-2 #### [facility] ([id number]) [address] [place] [address] PT Coag (PPP) [Time] 11.5 s Normal 9.8-13.2 [facility] Comment on above: Result Comment: NEW REFERENCE RANGE Performed By: #### 1 4979-9, CBCA, 24301-0, 88475-0, 29209-3, PINR, CMP, THYR #### [facility] ([id number]) [address] [place] [address] 97509 #### 28941-8 #### [facility] ([id number]) [address] [place] [address] THYROID PROFILEon 06-01-2023 Free T4 [Mass/Vol] 0.95 ng/dL Normal 0.61-1.[address] [facility] Comment on above: Performed By: #### 1 4979-9, CBCA, 68120-3, 18112-3, 70669-5, PINR, CMP, THYR ####[facility] ([id number])[address] [place] [address] 29884#### 14447-5 ####[facility] ([id number])[address] [facility], [address], [place] [address] TSH 1.43 uIU/mL Normal 0.49-4.67 [facility] Comment on above: Performed By: #### 1 4979-9, CBCA, 13767-5, 60581-8, 04262-0, PINR, CMP, THYR ####[facility] ([id number])[address] [place] [address] 10441#### 70821-1 ####[facility] ([id number])[facility], [address] [place] [address] Troponin I.cardiac High sens itivity method [Mass/Vol]on 06-01-2023 1 HOUR TROP I, HIGH SENSITIVITY 9 ng/L Normal <21 [facility] Comment on above: Performed By: #### 8 9579-7 ####[facility] ([id number])[address] [place] [address] TROPONIN I, HIGH SENSITIVITY 9 ng/L Normal <21 [facility] Comment on above: Performed By: #### 1 4979-9, CBCA, 09402-1, 32999-4, 41089-8, PINR, CMP, THYR #### [facility] ([id number]) [address] [place] [address] 41212 #### 85591-0 #### [facility] ([id number]) [address] [place] [address], [address] [place] [address] aPTT Coag (PPP) [Time]on aPTT Coag (Bld) [Time] 30 s Normal 26-37 [facility] Comment on above: Result Comment: NEW REFERENCE RANGE Performed By: #### 1 4979-9, CBCA, 35777-9, 08266-5, 64153-9, PINR, CMP, THYR ####[facility] ([id number])[address] [place] [address] 06637#### 98117-5 ####[facility] ([id number])[address] [facility], [address] [place] [address] Provider Orderson 07-28-2021 Provider Orders [id number] .00[facility] Consent Formson 07-09-2021 Consent Forms [id number]#1 .00[facility] MAGR Preoperative Recordon 0 07-02-2021 MAGR Preoperative Record MAGR Pre-Op Record Summary Primary Physician: Enrique Rutherford DO Finalized Date/Time: 07/02/21 15:05:59 Pt. Name: ENRIQUE MIKE/Sex: 1935 MALE Med Rec #: [id number] Physician: Enrique Rutherford DO Financial #: [id number] Pt. Type: O Room/Bed: [facility] Admit/Disch: 06/21/21 05:54:00 - 06/22/21 12:10:00 Institution: [...] Signed By: Isabela Soliman RN 07/02/21 15:05 [facility] Coding Summaryon 06-28-2021 Coding Summary HTMLBase 64 DomsvkbnJCi6wHm+PGhlY WQ+VK0TQIQhY95gjWOcnB 3VJ9qBUG5YCBXCUMQNCB4 GYU3gaNY7PGwdQ8QikwHy OqrocXZkAK52JPy1CWT9f AdePWvdnM5ooSKeD5s1Ww JyTY66yG17LGtxSATfQgC 3LjZpbjsgbWFy E9bjOzFixIPkMbc+PHRhY mxlIHdpZHRoPScxMDAlJy HqfBuhCA4zUi3nUOGuUQU vbGxhcHNlOiBj e8psDDNeAQaiVZ1uaFcrY 6QmaUZ4KXXmb6w1Yf06xH I+KKWfASJ4fPtjLXphn64 0SoBqa6eoDBN7 kXIeMWnkENH1S18va8V6X NTqMKCoXYL5wQM2mH7mbT ncbutxE2XirIHdKeE6MXB 5pUFtlG4raMvd ilystZ8xFjk+F92DSS4AU ENWQD1UFvf8C6JmUqcshL I+VP64EXSgIK60dSMtaLB rs2wzwLu9LmPn UNGkLII4lKxvZGafn7NpS VJxY42ilSYqi5J5QSBkgH vkbCCwRwErkHC5yK8bRIm epbxot7phrhgd Tttrp7dzzb83jF62P02mV BhvZMWjJEI8FZJqSAEuvK zdza3oiM9vKo7+LUfvb4d ud5xugZy8LaBp DAUleqZvpHppCGQ1p7GpJ e60C1WuaVxzt8SqLzw7fe 77jGUqg8G6iNK7FPlpUXG peV3vDJijZeW4 DOYeIdMirD96yKRbIMwgA g2mfCwfuQtaRP6eGBUkjo gdTLGwoG1jKTNpoFJoaAz hTQ5vWQQydsdq p186UaShXUE5ALMfbUWuE 9JjzM8iTgKhEHYzSXKbN4 HitTKzFXnsB816QDloAyG 7ZYDekjMeD3Er KQVxcFvjBqO0b4O4Dd6Pn 9ZjengmBBW4QVrnBBU6Dt T0RyPmMfX8O4QlPpy7DYP ivJbjLP9cD3Ga EEMfhtxuevywsAT7KADpY AVsmI72wRPzUXucCw9od1 J0u614NKVkKZBygX03Lg6 udDogMTBwdCBU jA3rtalpc1bisnepGiXbS AFjLGb3XZg3YSXolOrlDy OkUMS8TfP7VQU9tXHnjD4 zfIpqxmpciG4k Oyc+T42fwZ6hRTB6LVK5i nokTDEvqwYfOV95IK76B1 RyPjwvdGFibGU+PGRpdiB tnNxsSM2rAzFh s6kpu2IqSWljS1YpPFFnJ GdeDdk4XTZwQOR8uXS7qU 0zALHqXEssa1M6uWG1P7S kzhKtem9an4yt VDIqFXudB76ljFNqy5K6S YEntED6RKCslGktElWtlX 93Oyc+ANBacAhyp2AoQgc bl5fdm4vbpWl9 KoKrAHJkitOheNibAPE2x 9NbMh99Q28lXJstOYWtUR PkSQMnGZGtiMntnd3bjV4 wIi8+PGNvbCB3 oFS6nH0kEGIdHaB4HTsoG 347FjGkqSOwCxijx0nju7 tytYo8PzYvJLXcqhBmrVl mSDB7h2EcYu03 T39kZQlcEUQlWUQiEUGbU UYysWqanz2asT7wBx6+PC 1tx4lufc35mO07tWS+PHR qORZ9eIstMHtb SPTgqX5eRZhaDzD1SEHjB zDxiF99pZZxYBsbLa9qoN mhdKncJX7aXMNjjziqc53 4ZeErc4pcSNZc lIDlGPulUGG4P54hj5V1I OTkSKIaMVN7jOI2eD7rqY lnbjogbGVmdDsgdmVydGl bCPlzLQplV677 IHRvcDsnPlBhdGllbnQgT bXsZZr6A1AjQrf0MJPwyZ puNK2xjPPdGCrqKk4aeMg vpNrfFI6wGQIx qezlp145YnYit8yxGQPyp XCpLWjuKOQ9I88ou4T8UR TjLWJnPJN3wUB3xI8ugNq nbjogbGVmdDsg okUvfWdxTAdaURuxG650F HRvcDsnPkJpcnRoIERhdG Y6NO05DE41nLJtl5E7eXA 7Z6WcWVZrpolr ivlqqIO2XDXaHVVjwZ10V z9nqOogAt7iDJEgTBG1PL QahCAqS7GtiY5mGyFxKCP xEXIxB1BqcMHv EAzsC224TTlaXkM9VQZou pChI6PtHWRxrCtzYlX1d7 U9Wc1BT2S9ZZ59EE08bKG mv0O9yPB9P5Fg QXRqhsjntcwmdQX5HSJtS SYplC07Fu9teTtwHc6yBD BkQVV6EGCbyQYaL2MedN7 yOiAjMDAwMDAw I4UauADeOIgqN624YQhqV kO1NGOmzgJeZ3OuHBEutR ugTvE7c0G3Wj0BRSs4WC1 4KL84xVDhg3D0 nWJ7X8VgQWZjadtycfjlb FA4MELvMFJjnW93Wz3wrT ooYk1xISPkTYZ0XXRnpJY xP0YtqO1zNvWh MGCcQXUrN2BtoHNkIBjgY 336GIzvCzO7EVGsibUbJ3 AoVEPwvLbjSnB0x1J0Fb4 FQXCqNM13DPV2 rDX5FO16NG12L8MgVjnbs GFibGU+PHRhYmxlIHdpZH RoPScxMDAlJyBzdHlsZT0 yXo5lBTQuUSPl cFoppXKzKlHjv9flCULmX UtzIS6isBlkG1OxySW6YW Cgt0j5Ce28U05gG5JjuKP +WHWguSF9rON9 dA5vZtAcXbK7SEnuU563O jBhuBOjKhpmn2nnb6gyoE w5UcN8MRWkvpPftYkaOBB 5p3QmZs00A46r IHdpZHRoPSIxNSUiIHZhb Hrrlo1vnJ1eEj7+PGNvbC G4bIY3dA4uFjZlMgJ4NSc tR205VfZoaXGo Flewn6hhb0mhcKl8LyDlT HXjyrOzeEbuWGX5i7DvGi 77P2NjeEhzn4RpCor2gl9 4rLCpw3L5bZL5 T7JuOQJvicpafNKvcTgtG Z9aGZOtdrqxRFUlnI8eTY FzH6w7NjGrMmB3UEnnV6L fvnV2DUOzhTNh YJzgQMU5Z77po5Z1BNNeT UNyTZA7eZM5lX7pbSfrcc ogbGVmdDsgdmVydGljYWw wHVlvC181YETl oKprBJTqgM3sLKXuyINww RbpVZ5vKLDrpvbfWmUWXo ScRQqGMMAFSVB4S0EnTuz 9XWApgNgmYG4l nQTwQCcuYp8hkZvgpIusY T3xTRWuhmbsSOPkyU2cRS DjoBIfwYqpMV6tIFTyqta hk658AfQdGAC3 CTUkjCTbB8UgrL3pAyPnA WKgGVJeM2BetGYbKEdlI6 52JRfrLdH7CFJtjuHcM2F sLWFsaWduOiB0 l8V7Oq6aUa4tCZ4xFSU1Z I38BR10mJCrs2J5pXB5W0 BsXIOqhomrtrkxwIA4RRQ wQWAgzJ34zWEa GUmsWt0ng5P6z209OJHxN SFzyV75Bh4kvMxpUBVbzL NRiG3kpoicu2vkpykcPeR wTWXcFGa8DDi6 NTApcGbsBnBaAKA3MeP5A BQ9oZIabM0ckClpaptsuB 9wOyc+TTHjUPFvrjI5S2T gLfa9VRYhzEek AM7hqLWiMTntKn7zyPgvx ZjdPG3oIXDozrkgUIAowU 1jUNTzaXQhcAkrJU2eCLQ jroqpu702CyUg KSP0YGTwsJIxS7DbmH5fB cGcQGYdUBWtI8GdfKMkZJ ywP638PPmaKxU8QMFlocR nP9TpMNZprZpx YgU0q9L0Ov3MQUzZLX66U V71sKGnn1J3sST6D5JwDB VopzxpvrgmmCU6BKVyVRY vaF28yTHaCMcw Vs6vr9P9t548FIDsDSOvu R49Nq2yjOgzGVWfbCPYxZ 9trweuf8lafatcXlHuBXH tGZh0RWh0YSGj wVauVyUgOJG4DiD1OAB2i IXkoY8plVxzseicfV7lHn c+H4VkGDU8GGDam937B2Q kPjwvdHI+PC90 ECCsHC62iICrhFCoc4zia Ml9DdBjPNSiZNP3fNfgNW ixr2KbQHClY62hlUWxc4V 6IGNvbGxhcHNl WtPfzBD8rR6rWGfqirpqw 4llbpdjRrltb8ifom23lD 19Z06sLUmaHQNcUQSeJZJ hWBTsbTbwwb5h uT2jWu9+KFUqfIU4rME4l Q6rQmPmBxN4LGetM037Eh VufZEwOnjvw0hku7slrDd 9IjIwJSIgdmFs dFmmEHB6b2OrRj03P99qZ HdpZHRoPSIyMCUiIHZhbG spld3aoU5dIy7+RT0db2r rgc89oY97uYO+ MFExEXD3rOujBIhzXBJrd A7zAUmaTaI6VHQaBcUicH 23jIQlDKghVj9mxLvisVd eIL4nAXGavijp r915RxIdn2luTQXekHWdE RnwYYC4X85uq1S7HDYoHL MiMZO8fQE4kY0zuSdubnw gbGVmdDsgdmVy vGnaGTtvWPxcM254TKXgy QmfWyRyoMTnW6lohzJGKY 1lOjwvdGQ+YCFbWCG5jVt mNAhzRICxeY0y PETfD0t4QgOzTnQ4ELkgS 5ZqgjI0HRImiIEdVUEmhJ XOzT9qrsucv1ghkfkxQrK wSVGtLSh2LFx5 TCSdoHqfMhYxTZL2FrP7X LV9rZRvnI5tpImrxuyzjZ 9wOyc+RklOOjwvdGQ+PHR oWEE9xJdsRSnx QMHtnY7xXQEvX5m4WsHvY rW5LTfhE6SjfdQ3NBJjnD UnDGZhiFPKsG8oaxtzf6u vcjogIzAwMDAw FCi4LHk8HUVxoPnsBlKlU GU8KmJ0KYJ4yNJgpN9epB mjlrnshV9qVzk+TVJOOjw vdGQ+PHRkIHN0 eUjkBWssUEEulI8iUJGtS 3u5IkGrVeQ5HEgbD7Jbtk U4JJIrnJBbNQYftMNWaF2 nhsmxu0tjnlmg UtJkYINlVDq7FTq4EFNrf HupBzUyPLA2WyR2SNN5bC HocL5qdSnghwouuM2iBeh +JKS4LZK0IU18 FQ38K7MlEstfqZAsvYJ+P HRhYmxlIHdpZHRoPScxMD LcSuQoaSviNL9nLv1hKBP yLWNvbGxhcHNl OiB (more content not included)... [facility] Consent Formson 06-23-2021 Consent Forms [id number] .00[facility] Discharge Instructions [id number] .[facility] Tele[facility]pson Telemetry Strips [id number] .00[facility] Consultation/Specialist Note on 06-22-2021 Consultation/Speci alist Note Patient: ENRIQUE MIKE Age: 85 years [...] [Verified on: 06/22/2021 07:09 EDT] [facility] Inpatient Patient Summaryon 06-22-2021 Inpatient Patient Summary [place] [id number] Patient Discharge Instructions Name: ENRIQUE MIKE : 1935 Patient Address: [address] [place], [place] [id number] Primary Care Provider: Name: JERMAIN MENCHACA MD After you are discharged if you find you have any questions, please, call [phone] ext [phone] to speak to a nurse. Discharge Diagnosis: [...] alcohol and/or drug addiction problems; contact the [facility] 12/09 Crisis Hotline -Text 4HANE xj 572284. If you received any narcotics, sedation, or [...] business decisions or sign any legal documents [facility] would like to thank you for allowing us to assist you with your healthcare needs. The following includes patient education materials and information regarding your injury/illness. ENRIQUE MIKE has been given the following list of follow-up instructions, prescriptions, and patient education materials: Follow-up Instructions With: Address: When: Enrique Sangeeta [address] [place] [address], [address] [place] [address] Business (1) 06/29/2021 10:45 AM Medications During [...] Medication mariana (more content not included)... [facility] Postoperative Record MAGR Phase II Record Summary Primary Physician: Enrique Rutherford DO Finalized Date/Time: 06/22/21 07:37:50 Pt. Name: ENRIQUE MIKE/Sex: 1935 MALE Med Rec #: [id number] Physician: Enrique Rutherford DO Financial #: [id number] Pt. Type: O Room/Bed: 221/1 Admit/Disch: 06/21/21 05:54:00 - Institution: Phase II [...] Signed By: Karla Moss RN 06/22/21 07:37 [facility] Progress Note - Nurseon 05-0 Progress Note - Nurse Pt discharged to home. Taken to awaiting car via wheelchair. Belongings sent with pt. [Electronically Signed on: 10/06/2021 14:53 EDT] Emily Kennedy RN [Verified on: 10/06/2021 14:53 EDT] Emily Kennedy RN [facility] Progress Note - Nurse Surgical dressing removed. [...] procedure. [Electronically Signed on: 10/06/2021 14:53 EDT] Eimly Kennedy RN [Verified on: 10/06/2021 14:53 EDT] Emily Kennedy RN [facility] Progress Note - Nurse Shoulder block wearing off. Pt able to move his wrist and forearm. unable to wiggle fingers but tactile sensation intact. Circ checks WDL. Pain level 4/10. 5mg Oxycodone given. [Electronically Signed on: 10/06/2021 14:53 EDT] Emily Kennedy RN [Verified on: 10/06/2021 14:53 EDT] Emily Kennedy RN [facility] Anesthesia Noteon 06-21-2021 Anesthesia Note Patient: ENRIQUE [...] on: 06/21/2021 11:47 EDT] Rod Ann DO [facility] Anesthesia Note Patient: ENRIQUE MIKE Age: 85 [...] = 50 mL, 100 mL/hr, IV Piggyback, Marker Machine Attendant LR 1,000 mL: 20 mL/hr, IV Lidocaine 1% injectable solution: 0.1 mL, ID, Once, PRN: Other (see comment) tranexamic acid: 1,000 mg = 100 mL, 300 mL/hr, IV Piggyback, Marker Machine Attendant tranexamic acid: 1,000 mg = 100 mL, 300 mL/hr, IV Piggyback, Marker Machine Attendant Documented Medications Documented Aspir-Low 81 mg oral [...] (basal cell carcinoma), face / SNOMED CT [id number] / Confirmed Hypertension / SNOMED CT [id number] / Confirmed, Active Problems (2) BCC (basal cell carcinoma), face Hypertension Histories Family History: Entire family history is negative. 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 Back fusion ([id number]). Chest tube insertion ([id number] ). Comments: 06/04/2021 9:17 EDT - Elvi Barber RN left lung 1998 Inguinal hernia ([id number]). Rotator cuff ([id number]). Hammer toe ([id number]). Social History Electronic Cigarette/Vaping Assessment Electronic Cigarette Use: Never. [facility] Assessment [facility] Tobacco Assessment Former tobacco user Tobacco Use:. Substance Abuse Assessment Substance use: Never. . Social & Psychosocial Habits Alcohol 06/04/2021 Type: Beer Comment: benoit beer - 06/04/2021 09:18 - Elvi Barber [...] / Management Results review ECG interpretation Plan [employer] [employer]#( A) physical status classification: [...] on: 06/21/2021 07:57 EDT] Rod Ann DO [facility] MAGR Intraoperative Recordon 06-21-2021 MAGR Intraoperative Record MAGR Intra-Op Record Summary Primary Physician: Enrique Rutherford DO Finalized Date/Time: 06/21/21 09:51:01 Pt. Name: ENRIQUE MIKE/Sex: 1935 MALE Med Rec #: [id number] Physician: Enrique Rutherford DO Financial #: [id number] Pt. Type: D Room/Bed: [facility]/ Admit/Disch: 06/21/21 05:54:00 - Institution: Case Times MAGR Entry 1 Patient In Room Time 06/21/21 07:28:00 Out Room Time 06/21/21 09:43:00 Anesthesia Start Time 06/21/21 07:28:00 Stop Time 06/21/21 09:45:00 Surgery Start Time 06/21/21 08:06:00 Stop Time 06/21/21 09:37:00 Last Modified By: Brenda Constantino RN 06/21/21 09:50:58 Case Attendance MAGR Entry 1 Entry 2 Entry 3 Case Attendee Enrique Rutherford Jacquelyn RN [place]ray CAREER DEVELOPMENT COORDINATOR/Eliel KILGORE CAREER DEVELOPMENT COORDINATOR Role Performed Surgeon - Primary Foam Fabricator Putty Tinter Maker Time In 06/21/21 07:28:00 06/21/21 07:28:00 06/21/21 07:28:00 Time Out 06/21/21 09:16:00 06/21/21 09:43:00 06/21/21 09:16:00 Procedure Arthroplasty Shoulder Arthroplasty Shoulder Arthroplasty Shoulder Total Reverse(Left) Total Reverse(Left) Total Reverse(Left) Last Modified By: Brenda Constantino RN, Jacquelyn RN Burns, Jacquelyn RN 06/21/21 09:43:07 06/21/21 09:43:07 06/21/21 09:43:07 Entry 4 Entry 5 Entry 6 Case Attendee Vivian Newman CSFA DanielYolis CSFA CAREER DEVELOPMENT COORDINATOR Rod Ann DO CAREER DEVELOPMENT COORDINATOR Role Performed Putty Tinter Maker Scrub Personnel Anesthesiologist of Record Time In [...] Entry 1 Ski (more content not included)... [facility] MAGR Intraoperative Record MAGR Intra-Op Record Summary Primary Physician: Finalized Date/Time: 06/21/21 07:33:10 Pt. Name: ENRIQUE MIKE/Sex: 1935 MALE Med Rec #: [id number] Physician: Enrique Rutherford DO Financial #: [id number] Pt. Type: D Room/Bed: / Admit/Disch: 06/21/21 [...] Klaehn, Margaret RN Role Performed Anesthesiologist of Foam Fabricator Foam Fabricator Record Time In 06/21/21 07:09:00 06/21/21 07:09:00 [...] Flow Ra (more content not included)... [facility]R PACU Record Summary Primary Physician: Enrique Rutherford DO Finalized Date/Time: 06/21/21 10:37:04 Pt. Name: ENRIQUE MIKE/Sex: 1935 MALE Med Rec #: [id number] Physician: Enrique Rutherford DO Financial #: [id number] Pt. Type: D Room/Bed: 221/ Admit/Disch: 06/21/21 05:54:00 - Institution: PACU Case Times MAGR Entry 1 In PACU I 06/21/21 09:43:00 Discharge from PACU 06/21/21 10:28:00 I Last Modified By: Isabela Soliman RN 06/21/21 10:36:28 General Comments: Pt awake and oriented. VS stable. Transferred to room 221 via bed. Finalized By: Isabela Soliman RN Document Signatures Signed By: Isabela Soliman RN 06/21/21 10:37 Normal [facility] Nutrition Noteon 06-21-2021 Nutrition Note Pt admitted for scheduled Lt shoulder surgery. Diet already advanced to a Regular, ate 100% of lunch, No wt hx available, denied any wt changes on document management consultant assessment. 06/04 pre-op labs reviewed, mildly elevated BUN noted. Pt at high nutrition risk r/t age greater than 65yr, however, no foreseeable nutrition concerns at this time. To follow. Normal [facility] Operative Report - Surgeon/P catalina 06-21-2021 [...] on: 06/21/2021 10:15 EDT] Enrique Rutherford DO [facility] Patient Handouton 06-21-[address] HARRIS [...] or concerns, please call the office at [phone] -Follow up as scheduled [facility] Progress Note - Nurseon Progress Note - [...] on: 06/21/2021 14:30 EDT] Phyllis Kasper RN [facility] XR Shoulder 1 View Lefton XR Shoulder 1 View Left EXAM: XR Shoulder 1 View Left HISTORY: Status post Shoulder Replacement COMPARISON: None. TECHNIQUE: Single view FINDINGS: Normal alignment and unremarkable early postoperative appearance left shoulder arthroplasty. IMPRESSION: As above. Final Dictated by: Eliel Garvey V Dictated DT/TM: 06/21/21 4:52 Signed (Electronic Signature): Eliel Garvey V 06/21/21 4:54 pm Technologist: MARIELY BENITEZ [facility] Comment on above: Order Comment: barbara cabrera status post shoulder replacement Coding Summaryon 06-18-2021 Coding Summary HTMLBase 64 UbzbxrzgTBv3yWf+PGhlY WQ+FT8TDRKgM39cmPXllS 0AR3uQBZ9SOLDNXATPML9 AIB2njDY9OVymQ1UosfCv NtwolLGjIR72MEm0JMO2p FzkVSlziZ9joSIjQ7z9Js ReKQ21gH46EDnfZBQgPqC 3LjZpbjsgbWFy N3bqHmSueLVfKez+PHRhY mxlIHdpZHRoPScxMDAlJy JvcBjhNC8lEh0yPIHpGVW vbGxhcHNlOiBj i3dpMGPwYCbxPW2pfUxgU 0CytFE3RVYdg8h1Rx71gP I+FMFqEHL1fFbeQOhwx04 6LxXhz2myBKA9 jRHtAMsiBIV0R54ft7N5T HUnQSQhMLQ9aZE5jW9olE eyrthaR9WsrMXwQkX0QVV 3dOYpxY8jdBlb wqeudT1mXyw+F24NSV4ZO VFOQA8SQmj7N0GwQuvdkS I+TN40VPYjDK79cQJafUZ ac2aaxLj7LyNm VYWnRPW6rNokJKyow4JqO QMkG10suVEmz8K6MVHtfH nxgLKnHxBvaBW6aR9bKNf jdrgpz3doxdqf Khfzm8dvcz71kB35A55vQ AdnHYThDKB5TEVuRCIhuR wdky1jeT3pJd6+MCqwy9r uf4pkkEn3PiBy JCXrocJkxYswWGA9s5NkQ h71N9HfjHfla5IsMme2sa 57iLNfh5B4mMJ5YLbbMGJ jzV1yBEpaAlY9 UEDuEjIuqN27wMEpSGmcE w4zfUagbDmkVW4nCALnpo ulXNIxgB0xXUExlKLqlXo pOQ7kGQDlydue z947ZkSyDPW8BDUzuLOfJ 5BakZ7wLfKfRVWnWYXrF4 DxjKObKQtlZ422UAbmScG 1NUAvlyQdM4Bc YDTfrOxhTlR1a0U4Mk7Hp 4ZeuclfRBM1OQlfMYW0Vp I2BiIaHqE6M6JoWwe7XMP tuYaeNH6kW0Cx XQCehlnmxytyuLJ3UQEcW MWhkR43oMVwSKllOq3fc6 F3k768JGRiFZHyjQ15Qs7 udDogMTBwdCBU lE2vobghg8jnmfmuZyLvI NAzWSy5NZl0JJLnhSzvPw ZvATX9InQ9QJC1lOXnyT9 goHzhfuchjJ7h Oyc+D10syE1sIZB1AIC4o mtbMWTjafQbCR40YP56L5 RyPjwvdGFibGU+PGRpdiB bwEekBJ2uZjOi u7lfk2HlXEflU4UoIAJoF QqcLbq4FIYzLWX9wBI0tT 1uPCLaHSktz5D9vDK3A3W ncyVpah7ri4vs COIaJXnwP59qrNBpd4V1F GBhsHZ1JYQtuNsgZjHqqB 93Oyc+TWRcfOtgh9QiZab jc3xsn6iqrKk5 SoXxIJBdzrXedDklMNE7r 9StRa85G48eHPjnAOFxYL HlVCFqCFHqhZgstd8huU1 wIi8+PGNvbCB3 vTT1xD4vICNuEeG5LPtuW 695CqPptCBwFhqly1xcj1 yffGg1CaXvRAWjslHceEf eXUS8f3MyRp03 U17cLKexSWKqTZMxJJWvE XKyrXjdyk1klX3tTh6+PC 9fu2isjo75sM74xEL+PHR uYMI7fMnuZBdk ADOswH1mYQjvRlO8UUYnR aRrgH39tZUaOYdfQb0ufJ iiqWpkPN9tFZDjzmjch95 9WiRha8hfWBDl fRUnMUruCPE6W66rd3H9R UFwBVCiKIC2eVR9kE1bgS lnbjogbGVmdDsgdmVydGl vAWmkNJjuB572 IHRvcDsnPlBhdGllbnQgT fJrYMc6K0CeYrl3GJXxqJ avDZ8ruMRoPAdwUf3dhZs mdSzuTQ3xNVCp gciya966FjMfp8irUTTbz PEzXEpyCZK7P21xk6Y0BF VcLRPsZFJ4dHR7nP7ryVu nbjogbGVmdDsg gdEdbUnfGDzrWNrqW977W HRvcDsnPkJpcnRoIERhdG X6HL45AN61tFQgv3A3zDA 9F4BhLYPmopiq wqkhyJX6XQAhVKKtxC84V r3lmPcnXg4uJWAfRRX6RB JclOFoI9UguP0aWyLtZIP jQVZwD3RpeZSc BGbtK933XQdkAqX2SNSaf pGyR3QcJUEboEsoChH4e6 P1Fm0IB0F4MT80OU53tYT nl8M7uUC1K0Sw ZBUrwykilugyqOE0FZRbA RHqnQ81Se8gtPzjHi3gSV VdRSK4QOTnpPLjR6NegE7 yOiAjMDAwMDAw G1DzaRFwQEtxK977HQzsH pB3SHGusyShM1XzQOKorC mkMlS7d3F4Rg8IYZx6NI7 5AP40yNUks0S5 hTW4I1SmFUBvqsnkeqqcq FS3XUEaOOFfgC73Ue2jyC szPj1pUJZrQRX4AMQeqVH jH1JxwI7mSbWo PASqQFNgL2UtlXHnOYeoD 442CZesBgG7RXFyzwVkQ6 AsTEFscAghWiK5w8D9Rb5 RIAKqFE60LUJ6 oIE9AB99BE96X6ScYfnfe GFibGU+PHRhYmxlIHdpZH RoPScxMDAlJyBzdHlsZT0 xZs3jFJUzADUt iGyprDCsSkKhk8rtVUPvJ YqeBW1xvQwcZ0XjsFL1XY Cjd9g7Kz76K60wR6KhtHZ +SCRsfFM2aAO7 iH3lTgNlUvY6RUcdR332E lPztUKlZsash6pap9gonV a5OiT4SDZiwkHwlRqxPRK 0t7NiYv36D08p IHdpZHRoPSIxNSUiIHZhb Yypba7fyX3tIa8+PGNvbC Y9qRP1aS4sJyWpRbR8QSq dV740GuLldVKq Kilwv2dia7wmhMy4NkGhD EGggqWqdCzqYBV9l9YoMm 45U4MscKyly2MyCxf4dd8 9zJWxk2Z2uFW9 J1QqTFFujklyoSQtzMprJ Q0wKSXufwbtLGTftA3nMF AzJ8e1RaPsIvQ2UOllV7L pbcB7SLKnmLLr GYsvFUP8J21rk1U8HCBmL ERkTBR5hHM6rY3ytHlobg ogbGVmdDsgdmVydGljYWw gFIqaS911BVGj xXdsPLXwhZ9yWSAwtTOvy MmmKR4qVCVnaltlRaLHGf AuAViIQVTSXJM7W5CeMdp 1RANicGztEP5y xBWnXPvlBd1stTyvdUtdD H7qRZGqjhhgQVOxjX4gOE TaxVVtxZogDU7pNHFbesw hw632ZxCzFHM0 JWBwhWZpB5IfpG4bXdUiA HKwUCGiN5LxxNTrUOmbI2 27VPioNqA7KEPldcNgS2L sLWFsaWduOiB0 v8P2Ug1dWr3mAY4pJPH1J V55XZ49sXNgy7M0kNN9Y4 XzLNJhvooswleatFG8DGT aEUWyaH16vSOb ECekDl9sc7S8a636EKMdD BPcnV03Rv1cgNfaBWRyvB SWgI4tzepgp5uavsqpUaV nZDFtYGs4UOu9 RGSwvBwuAdItALE5EeO1R MK1zLApqP6boUwcmvvzpX 9wOyc+FYNjPWQsarY2Q4N gDip4WJZejIsw ZU8zcKJsLZmaYq6joOzie JhgWN4zQUWhbyxmXIJfqV 4qHICyjLJngHgqED1uVQE bpvyfc197QlQa GUH5EWAlwDJdS4OqnP1pB nZaLUVeQEEiO1PpvVOyHZ ueI850BSumKgB1NNTyvzJ oK4FsRMVvoRrd EnB1a8H4Bl1RQKzAIZ25Y N77hAPox6A1oLT3D9FkNH FybagkblhhcOZ2OUTlWBN thR79pOWiBRhm Bb8ig1V2c771WFPyNPUwn G43Rg7zrJamYJKkeBVWtW 0akutqj4qeowutRwNmFKK nUMw0NVo7VMTz yUixRxTgALP7JwP9PER7w HZbwY9viUynniabpF5lBg c+I2P3F4HyFxtwzHU+PC9 5QIYwIU27xHJl hUOkl8ymeHd7ZqCbWGAtS IA9hDzaUXtha1KxVXEmN5 4qvOJaq5I8MDTjfVxnzUL vFbDyzPG2cI8d EWmlsmygd9wozhqcKmpip 7mxbv75gP03S00lRUcyRC RoPSIzMCUiIHZhbGlnbj0 stB6zIm8+PGNv rVX9bEO1mV2bEtGhWuD3N PhpJ598AqGmkJGjYspwq5 njn2ukkQh2OdWfWUKuzjB rdOzcSAF3z1Tr Pm40B74kFLiyGAHzKSHoW YXtHUNucEkbaw8jrR3nZt 8+GK5az6bxyi07gP61vGQ +ELYxZQZ3qZft RIekAWBmjT6hCSwtCzV2R ZFzHmZoyV78lNBcLQmoRz 6hnXrtdNbdEN6wGBNzebe rh373KrOva5ty ZFNwiUKqJWjdRWT5I71ab 5T1EZHpVUWdMZZ1dBE1iE 1hbGlnbjogbGVmdDsgdmV ydGljYWwtYWxp I195VKAozHlqSlPszIZyO 7nagxVNTV3xKlavlXO+PH InJPK2dZuoGVsvDDKnnB7 cUKUrK2d8VaBq BfS7ABkpX5LyszY6LIOrc LJrWAVkqMGIzF0qspiav3 reebcnCqHiMWJhUCe7VSi 0LWFsaWduOiBs SJY7CdK4FGR8bGWcaU0tt WbmpionpT7jUuu+RklOOj wvdGQ+YQKoXQL2pNdeHEm tAOTtdQ0zKRPo Z4b7GuVsUiZ0XSutL6Kii pO8HDDsbGFrRSDwgAFQkL 5dkvssx6qwwmpmWeFpBPZ dHQw3YBb0EIRp xNafTvPjDET3SjP1SVP0m NAkdR1bxGfrazfjkZ2zCp c+TVJOOjwvdGQ+PHRkIHN 0eWxlPSdwYWRk sI3jNYEqG5s3GuKoCxG6L OdxV1QhlkB1OYQigNLbTB XprBXZfO5oipkzh1fpgey gIzAwMDAwMDt0 UKl4XDPneLwwJeQpUZB4C fJ3KQM7aODrfN8nyRxqpi bhyY3xZwd+ZWH7KUX7HV6 6NY83X6JqRsqj dGFibGU+PHRhYmxlIHdpZ HRoPScxMDAlJyBzdHlsZT 7zAs2jPSWsWYRyaBacpHB qCdGhw6vrTRSk ZTs (more content not included)... [facility] Progress Note - Nurseon 04-2 Progress Note - Nurse Pre-op call done, instructed to arrive @ 0600 on 06-21-21, NPO after midnight-verbalized understanding. [Electronically Signed on: 06/18/2021 09:26 EDT] Ayah Gracia RN [Verified on: 06/18/2021 09:26 EDT] Ayah Gracia RN [facility] 2018 Novel Coronavirus (CoVI D-19), BART LCon 06-17-2021 SARS-CoV-2 (COVID-19) RNA BART+probe Ql (Unsp spec) Not detected Invalid Interpretation Code Not Detected [facility] Comment on above: Order Comment: [id number] Result Comment: This nucleic acid amplification test was developed and its performance characteristics determined by [employer]. Nucleic acid amplification tests include RT- PCR [...] detected) result in this assay. Performed At: [address] [id number] Suzanne Durham PhD Ph:[phone] Performed By: #### 6 [id number] #### [facility] (DEFAULT) [address] [place] [address] Advance Directive Documentso n 06-07-2021 Advance Directive Documents [id number] [facility] Coding Summaryon 06-07-2021 Coding Summary HTMLBase 64 LaevyoznZMu3eZq+PGhlY WQ+XH5MSAAtU80xnJLtaI 7XI7xDLE1BRAOVRSZAYD1 LMD0yuSK1TDpwT6StfwKz BtkebSTuZK93KKe8CAN2f GvsPNkajV8esBKlA3i1Sg ZyNE28yV84OKmpSCSkUkA 3LjZpbjsgbWFy V3clDcDofYFzIjp+PHRhY mxlIHdpZHRoPScxMDAlJy HhoZyjLZ3zOn3iJUImMTJ vbGxhcHNlOiBj j6wzNOInMUwuTO7yyJlgH 8TvfDP7CPNxx0d3Eh38eI I+AYTsHVX4rVukCWmke99 5CsWfb2viHUR6 wTWfQUzfPJE9C80ge9C2U SIcPSWtKRX0sVU6eN9abJ nsexjsQ0MucEXcUqD1ZNI 1kWFcsA7maJxg cjnsqQ2sKwn+X54OAP6WR UNUVF4QIrs8Z6KkJaooxF I+WW58PQHwNI22tBTiiCX hk7ounNs7ZwNk DYDkZNN0pSlkKKsbv7JfW PQaN51sxAPjg8S3SMFrkF gmqLNzDsCsuZK8lN6fJZs sthctu6gyqqfa Fladk0vgqu23qW53R20qV DppBRFrPLU3QWAvSDWviC eyws3cbL4pPy0+JGszm8s oc2carFe5OhVz CDFqspDwmLbyNQJ4z7WfR k71L4PumHbzn6LzFxo0zm 50zWUln6H0gEI0MElcWCR gsA4kCIibThK5 OWQdEvWokJ56hJTdFAslJ v0uwDjciHeyPK7bVJByed ulDWYpdB1xYJMaqCLmwUy tFO3vJDZzbfmr w506LrXsGWP0FVQuuOBnE 4LczS5xPgZzWJNbKGGpY2 FgyMBbVVscN693ZQulDyB 1PAEwwuUmB8Rn OMNjgSgoSgH2d3D3Zw5Ue 6EavjzmXXS3TYmrLZF4Oq D4CcPrIsE1J8WmQyz5SGC jiFjoEX3iT1Dk NRWrawfzyvnckVE7JHJbR JGyuN59xFDgVQnzKi8qk8 S2z310NZTnGVPmgQ76Cy4 udDogMTBwdCBU gR1yfnuef2immoecOgOuC SDbCYz9FVw9BMIkwNtuJf PhIZD3MjX2GZF0kBTdcK6 djJzaiqkweQ4i Oyc+T41opN9gCSK5VZT1x ouhWASfdgMwPH57ZY25M7 RyPjwvdGFibGU+PGRpdiB edUjxXL0rFoRq d7hyd0GlAZtrF7MfMMNsT GoySjt1VXJbMLZ9iIG2vP 5tKGCtRUojp1Q4tDF4N3Y fjfUifb7ai5fn QVDgAYghM63ylCXid1P6G FQfyQP4YRVvhYqyCtRypI 93Oyc+GEMxnYemj9QlZca sx7qni0yzkHt3 NjHiHFDpbwSwdZkxEZT2z 4WqOz95S07fTUktMHYkRJ VdSXCdRYIzeIvjtf7ivV4 wIi8+PGNvbCB3 oHH4yC9zKGNqScD0PNmjD 917TkAveEGvCgnlu4uqt3 prkFn3ByBtCLOhfqGnwQg vELK8m1EbOp88 S03sEGesTHWvBXUfKZNfO LDrzWyeax2rpU3iOy9+PC 9li3czpv63sB34qWW+PHR aCDT9wDnoHFdt WVCdzN4kSVkwEsU2DQPjX mNlqY14cCPsFVyxSb0brI turJcdIL4bSUJdwizas01 1JeMoh3ezKNWq mSEhLPjfWFD3F92sm7G6M IStEMSmMGE2zIA9sE6soY lnbjogbGVmdDsgdmVydGl nCXynESihY156 IHRvcDsnPlBhdGllbnQgT aLxVZs1I2RsYcb3VNDpgT tkFS0vaZQgAJvyZa0kuJq qrIewQQ7uTGYe xpedn872HmBif0ueQXHmk LKgHYfcMKU5F45ys9X9DR XkCPZyGPC5yEI5oX0udFe nbjogbGVmdDsg kuJufIivXShnEYqgD133X HRvcDsnPkJpcnRoIERhdG K9OF00YT54jQIyn7J9uTW 5H7DaVIUncqgs fbbooND9RUVyLBIuvW78J c3piMwaAj1pRODrQEZ5FF YxnKWjZ4BxqL3dNuSyROU uFXVsL4DzgYFy ZCuiZ226HBsoNiT0PRQgz xJvY1LpGKJrcQhlIaG8a0 A2Pg6CD3G3ZF85DO68oYX xm6G3cVE8Z6Pa TQMlqmfffewijHT9DRXhF EUurW84Gy0oiGkfHc3vSO FeJIG5XADpqXToM4DkiQ5 yOiAjMDAwMDAw L7ZxfDJiBBbmW690XHhhQ zG9SFAmwpJjX0TxOKXimE ctAwW8s9V6Uz6ZLBw5GA2 8NV66kAWcs3D9 tUW9K1HnWXKlchjjhtqup AK5PKNtCQXrjG10Us5teW qcFz5mRSFyLPQ3DZIqjPH sX6YpiM5mZsIj QBBaTDBaW0VsgLTlLPthF 569GXobXwD8MNWqbuYtN7 IyPTHzyOsmCjH4e1L8Xk1 UGXXtHT25VVE5 bLH8BN89NK46D4KkNkeec GFibGU+PHRhYmxlIHdpZH RoPScxMDAlJyBzdHlsZT0 rEo5cSQBgGPGu fCyllZWjTjHgn9aaFNEhL IitJM5dwWjyP7TqfVB2KC Amh1l5Sw36P71rC4UnhWJ +VEMqnAS8fUX9 cY0oViFpPlK2QLmdY906K tAejJEgTpenb2chq5pfwG s6RpH2XNHqczCoxKojMFX 7j7YjFa78O60m IHdpZHRoPSIxNSUiIHZhb Ppljn1bzM2vPz6+PGNvbC S1oLF3sC6eTsVgGkH0UZs uX052LfInyCXt Gpzvf2xjo4yodJe7ZlKvL DYptkZlbLbvTAV4j5NxHb 68W2ScjNzpb6LoBdv6ai0 3qRWnm0R2oHC0 D7SdOQLkvqaeoUQfnMksF U2wKQVfznvtUCHjgS3vMC GuU1i1PcHpGnY2FUnkQ4C mpyQ4ATMpwRQx KQrzZJG6T40bg3Q1ELUaX PIjLMN5aAF0eW1xmFjkwq ogbGVmdDsgdmVydGljYWw yTAdvI887WWZj xAstWEPfxC8oEMZfpFGnz ZuqYV7jHJZznaegSnRBBh AtJTfLMXODFXS9N4AmMbb 1JYEsxGozRD1o fVIdBIfbLt3dqFpvnHvhJ E8fGRJoxppxJLGpoB6gLW FvaYYbiUriQO4tKLFvwwa bv232RnCfQMS0 NRLfxKSiN6RccD0tIdBpR KTtWEQxY4DepGEgIPrvT5 97JTdrLaI5XRIpgbVoM7Y sLWFsaWduOiB0 d3Q8Tg2qRi5hOO9dWAS4P K66JD57sUWqm9S5kOC3D1 VkSDGngnxsgrgvmUW6MIK mXGQobB53bOYq LYqxTs9mc1N0s484EVEaZ MPqlG13Ug4mrZifIQWjjE VTyS6ocviqu0xbpiyiYnB vOMEiCMg1FCy1 DACkkCzmFvKpGHM7HfN9L HY8kSEjzS8luQqrhmwbtP 9wOyc+XPNlHYRuewD7L1A aQzr9RLFbvDal ZH5vqUTqEGupZl6giFdlz HdvQM9rIKCvdillJKNxaL 7yDCCwxEXptOrpLV8lKYA jmdfli413KyXo FVO1HEDybYFbC8XygO5mO rDsWZBlFNIwT4DlhZJeRY frZ945TRzaCnB1CPRiffH cJ4HuXSOqgGhr JxG0e9W8Br6YLUuXJX47F D65oDIxe0S9yYQ0Y9XzLG MthlcsmvmylMJ0YKZwCPI wlF06oVHjYUgm Rv2pp5B3m625TOLwVBFfk C29Kf4ikSexNHPbyKAPfH 2tayzar9fjebqyUsTdODU pJKb6QDf1CLOy jTxjMzHfGNV0LmK3TFC7j XGebN0foXqrffiqyQ4wLd c+Y6W1D6EsBuzvfVS+PC9 6IEYlEJ27gYGf uFRcz4zlhFi7MiDmKAVwZ AL8rTmzCIirl1HfHIMtO6 7ugSBck4S9TNZwaIwgrAE sIhAgkUC1kL7q OCgxyscsy6dphbjbDhvfy 2nxzo38nU76C91bDOqxBP RoPSIzMCUiIHZhbGlnbj0 svR4nEg8+PGNv yKU2tNJ0rQ4sRkVyGuN9Y NbuI916ZaNjxAFrVniag6 trh1hrsHu6CqAfBYWyihQ cfAgrFIG1y3Gf Nt44K46oAWmuNZJfHQMhP POsZFCbbQazua7gtG0pYa 8+UO6ws7bcpv96jQ51bFM +KNMmATF7xUvv GUhwULFcjA4oHXppXqV4F GQsFnMzdS77fFCrMUnvXt 8mnQoecXpzQS7wBPYbmme il956GnLpe8aq PKMjuXJjASgjDCL2Z13ub 6I0VMJsLZJlBQS0bYH5dE 1hbGlnbjogbGVmdDsgdmV ydGljYWwtYWxp W457RKFokYsiNiCweEYgA 1ohsaKITR1yZmuqwQA+PH MsOGL1oRuyRNkwIQFinT4 jATTvG7i9AeOb MrG3KNijQ9RwgqE6NJYaq BUjEWMoiDGZpR0lgrcwb9 reocznSuYgGTGiOVi5RZe 0LWFsaWduOiBs SNX0XyH9DCG5cRPtaF8so UbjckoepB7cMef+RklOOj wvdGQ+TQCvDQK3cXduKKd jYMRjnX5gLRXy D1d2TsOiKwP8FScmA1Awn jO5BNUdoZQpIQZsfIIZkI 1icypar8nswqbzTyVuTBP xRNt6AEh3AMGq pZhiCbNxFGW6MrJ6LKD9l LOnbH4reFewanxbtS5wMn c+TVJOOjwvdGQ+PHRkIHN 0eWxlPSdwYWRk zL9xHLErG2c2WrTpPlI3T AdoR3OpteD9EKEchUSzSD ZwgLTCrD4quyctl6vudhf gIzAwMDAwMDt0 SHi1MEIbqVxsOkSlAQC9W tL7VPO8jUYfbH0jcZwwbi fviO5vTwt+AQR9TRB8LN7 9YZ10F0XaRvfh dGFibGU+PHRhYmxlIHdpZ HRoPScxMDAlJyBzdHlsZT 7nWu0cSHRvGYGkzTigeJH wCjJko3ifXEYh ZTs (more content not included)... [facility] Progress Note - Nurseon 05-21 Progress Note - Nurse Chart reviewed by Dr. Garcia and no new orders received. [Electronically Signed on: 06/07/2021 15:13 EDT] Isabela Soliman RN [Verified on: 06/07/2021 15:13 EDT] Isabela Soliman RN [facility] Provider Orderson 06-07-2021 Provider Orders [id number] [facility] C MRSA Screenon 06-05-2021 C MRSA Screen Negative [facility] Comment on above: Performed By: #### 1 [id number] ####[facility] (DEFAULT)[address] [place] [address] .Auto Diff 1on 06-04-2021 Auto Chaffee % 13 % High 03-03 [facility] Comment on above: Performed By: #### 1 [id number], [id number], [id number] ####[facility] (DEFAULT)[address] [place] [address] Baso Abs# 0.0 x10 Normal 0.0-0.2 [facility] Comment on above: Performed By: #### 1 [id number], [id number], [id number] ####[facility] (DEFAULT)[address] [place] [address] 33740 Basophils/100 WBC (Bld) 0.8 % Normal 0.2-2.0 [facility] Comment on above: Performed By: #### 1 [id number], [id number], [id number] ####[facility] (DEFAULT)[address] [place] [address] 85608 Eos Abs# 0.1 x10 Normal 0.0-0.4 [facility] Comment on above: Performed By: #### 1 [id number], [id number], [id number] ####[facility] (DEFAULT)[address] [place] [address] 68731 Eosinophils/100 WBC (Bld) 2.3 % Normal 0.9-4.0 [facility] Comment on above: Performed By: #### 1 [id number], [id number], [id number] ####[facility] (DEFAULT)[address] [place] [address] 52727 Lymph Abs# 1.4 x10 Normal 1.3-2.9 [facility] Comment on above: Performed By: #### 1 [id number], [id number], [id number] ####[facility] (DEFAULT)[address] [place] [address] 19272 Lymphocytes/100 WBC (Bld) 28 % Normal 14-48 [facility] Comment on above: Performed By: #### 1 [id number], [id number], [id number] ####[facility] (DEFAULT)[address] [place] [address] 83619 Chaffee Abs# 0.6 x10 Normal 0.0-0.8 [facility] Comment on above: Performed By: #### 1 [id number], [id number], [id number] ####[facility] (DEFAULT)[address] [place] [address] 56723 Neut Abs# 2.7 x10 Normal 1.5-9.2 [facility] Comment on above: Performed By: #### 1 [id number], [id number], [id number] ####[facility] (DEFAULT)[address] [place] [address] Neutrophils/100 WBC (Bld) 55 % Normal 44-88 [facility] Comment on above: Performed By: #### 1 [id number], [id number], [id number] ####[facility] (DEFAULT)[address] [place] [address] BMP Standardon 06-04-2021 eGFR Non AA 58 mL/min/1.73m2 Invalid Interpretation Code [facility] Comment on above: Performed By: #### 1 [id number], [id number], [id number] ####[facility] (DEFAULT)[address] [place] [address] eGFR AA >60 Invalid Interpretation Code [facility] Comment on above: Result 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 Kidney Failure is indicated at less than 15 ml/min/1.73m2 Performed By: #### 1 [id number], [id number], [id number] ####[facility] (DEFAULT)[address] [place] [address] 99199 Anion gap [Moles/Vol] 18.0 mmol/L Normal 5.0-19.0 [facility] Comment on above: Performed By: #### 1 [id number], [id number], [id number] ####[facility] (DEFAULT)[address] [place] [address] 20552 Calcium [Mass/Vol] 9.8 mg/dL Normal 8.9-10.3 [facility] Comment on above: Performed By: #### 1 [id number], [id number], [id number] ####[facility] (DEFAULT)[address] [place] [address] 98505 Chloride [Moles/Vol] 96 mmol/L Low 101-111 [facility] Comment on above: Performed By: #### 1 [id number], [id number], [id number] ####[facility] (DEFAULT)[address] [place] [address] CO2 [Moles/Vol] 27 mmol/L Normal 21-32 [facility] Comment on above: Performed By: #### 1 [id number], [id number], [id number] ####[facility] (DEFAULT)[address] [place] [address] 18666 Creatinine [Mass/Vol] 1.19 mg/dL Normal 0.90-1.30 [facility] Comment on above: Performed By: #### 1 [id number], [id number], [id number] ####[facility] (DEFAULT)[address] [place] [address] 87867 Glucose [Mass/Vol] 93.0 mg/dL Normal 74.0-118.0 [facility] [place] Comment on above: Performed By: #### 1 [id number], [id number], [id number] ####[facility] (DEFAULT)[address] [place] [address] 21248 Osmolality 277 mOsm/L Invalid Interpretation Code [facility] Comment on above: Performed By: #### 1 [id number], [id number], [id number] ####[facility] (DEFAULT)[address] [place] [address] 42814 Potassium [Moles/Vol] 4.5 mmol/L Normal 3.6-5.1 [facility] Comment on above: Performed By: #### 1 [id number], [id number], [id number] ####[facility] (DEFAULT)[address] [place] [address] 25510 Sodium [Moles/Vol] 136.0 mmol/L Normal 136.0-144.0 [facility] Comment on above: Performed By: #### 1 [id number], [id number], [id number] ####[facility] (DEFAULT)[address] [place] [address] 72240 Urea nitrogen [Mass/Vol] 27 mg/dL High 8-26 [facility] Comment on above: Performed By: #### 1 [id number], [id number], [id number] ####[facility] (DEFAULT)[address] [place] [address] 89312 Urea nitrogen/Creatinin e [Mass ratio] 23.0 mg/mg High 4.6-16.2 [facility] Comment on above: Performed By: #### 1 [id number], [id number], [id number] ####[facility] (DEFAULT)[address] [place] [address] CBC w/ Auto Diffon 2 Erythrocyte distribution width (RBC) [Ratio] 12.4 % Normal 11.5-15.0 [facility] Comment on above: Performed By: #### 1 [id number], [id number], 5711309 #### [facility] (DEFAULT) [address] [place] [address] Hematocrit (Bld) [Volume fraction] 45.9 % Normal 34.8-51.9 [facility] Comment on above: Performed By: #### 1 [id number], 87657045, [id number] #### [facility] (DEFAULT) [address] [place] [address] Hemoglobin (Bld) [Mass/Vol] 14.8 g/dL Normal 11.8-17.7 [facility] Comment on above: Performed By: #### 1 [id number], [id number], 5998518 #### [facility] (DEFAULT) [address] [place] [address] Instr WBC 4.8 x10 Invalid Interpretation Code [facility] Comment on above: Performed By: #### 1 [id number], [id number], [id number] #### [facility] (DEFAULT) [address] [place] [address] Man Diff? Auto Normal [facility] Comment on above: Performed By: #### 1 [id number], [id number], [id number] #### [facility] (DEFAULT) [address] [place] [address] 38122 MCH (RBC) [Entitic mass] 32 pg Normal 24-34 [facility] Comment on above: Performed By: #### 1 [id number], [id number], 9432284 #### [facility] (DEFAULT) [address] [place] [address] 03655 MCHC (RBC) [Mass/Vol] 32 g/dL Normal 26-37 [facility] Comment on above: Performed By: #### 1 [id number], [id number], [id number] #### [facility] (DEFAULT) [address] [place] [address] 83046 MCV (RBC) [Entitic vol] 98 fL Normal 81-100 [facility] Comment on above: Performed By: #### 1 [id number] #### [facility] (DEFAULT) [address] [place] [address] 91362 Platelet 221 x10 Normal 138-427 [facility] Comment on above: Performed By: #### 1 [id number], [id number] #### [facility] (DEFAULT) [address] [place] [address] 51258 Platelet mean volume (Bld) [Entitic vol] 8.6 fL Normal 6.3-10.2 [facility] Comment on above: Performed By: #### 1 [id number], [id number] #### [facility] (DEFAULT) [address] [place] [address] 88233 RBC 4.68 x10 Normal 3.70-5.30 [facility] Comment on above: Performed By: #### 1 [id number] #### [facility] (DEFAULT) [address] [place] [address] 73760 WBC 4.8 x10 Normal 3.5-10.5 [facility] Comment on above: Performed By: #### 1 [id number], [id number] #### [facility] (DEFAULT) [address] [place] [address] 16941 UA w Culture if Ind Standard on 06-04-2021 Breakpoint UA Normal [facility] Comment on above: Performed By: #### 1 [id number] ####[facility] (DEFAULT)[address] [place] [address] 08338 Color (U) Yellow Normal [facility] Comment on above: Performed By: #### 1 [id number] ####[facility] (DEFAULT)[address] [place] [address] 19519 Culture? No Normal [facility] Comment on above: Performed By: #### 1 [id number] ####[facility] (DEFAULT)[address] [place] [address] 67429 Glucose (U) [Mass/Vol] Negative Normal [facility] Comment on above: Performed By: #### 1 [id number] ####[facility] (DEFAULT)[address] [place] [address] 79237 Ketones Ql (U) Negative Normal [facility] Comment on above: Performed By: #### 1 [id number] ####[facility] (DEFAULT)[address] [place] [address] Micro? Not Indicated [facility] Comment on above: Performed By: #### 1 [id number] ####[facility] (DEFAULT)[address] [place] [address] 94116 UA Bilirubin Negative Normal [facility] Comment on above: Performed By: #### 1 [id number] ####[facility] (DEFAULT)[address] [place] [address] 05218 UA Blood Negative Normal NEGATIVE [facility] Comment on above: Performed By: #### 1 [id number] ####[facility] (DEFAULT)[address] [place] [address] 66078 UA Clarity CLEAR Normal CLEAR [facility] Comment on above: Performed By: #### 1 [id number] ####[facility] (DEFAULT)[address] [place] [address] 77812 UA Leuk Est Negative Normal NEGATIVE [facility] Comment on above: Performed By: #### 1 [id number] ####[facility] (DEFAULT)[address] [place] [address] 09190 UA Nitrite Negative Normal NEGATIVE [facility] Comment on above: Performed By: #### 1 [id number] ####[facility] (DEFAULT)[address] [place] [address] 99648 UA pH 6.0 Normal 5-8 [facility] Comment on above: Performed By: #### 1 [id number] ####[facility] (DEFAULT)[address] [place] [address] 19233 UA Protein Negative Normal NEGATIVE [facility] Comment on above: Performed By: #### 1 [id number] ####[facility] (DEFAULT)[address] [place] [address] 33311 UA Spec Grav 1.020 Normal 1.001-1.035 [facility] Comment on above: Performed By: #### 1 [id number] ####[facility] (DEFAULT)[address] [place] [address] 72149 UA Urobilinogen 0.2 mg/dL Normal 0.2-1.0 [facility] Comment on above: Performed By: #### 1 [id number] ####[facility] (DEFAULT)[address] [place] [address] 60453 Urine Source Clean Catch Normal [facility] Comment on above: Performed By: #### 1 [id number] ####[facility] (DEFAULT)[address] [place] [address] 10330 Vital Signs Date Time Vital Sign Value Performing Clinician Aminata ndiaye 10-28-2024 09:29-0400 Body height 175.3 cm Jermain Menchaca MD Work Phone: [facility] 10-28-2024 09:29-0400 Body mass index (BMI) [Ratio] 24.81 kg/m2 Jermain Menchaca MD Work Phone: [facility] 10-28-2024 09:29-0400 Body weight 76.2 kg Jermain Menchaca MD Work Phone: [facility] 10-28-2024 09:29-0400 Diastolic blood pressure 82 mm[Hg] Jermain Menchaca MD Work Phone: [facility] 10-28-2024 09:29-0400 Heart rate 79 /min Jermain Menchaca MD Work Phone: [facility] 10-28-2024 09:29-0400 SaO2% (BldA) [Mass fraction] 95 % Jermain Menchaca MD Work Phone: [facility] 10-28-2024 09:29-0400 Systolic blood pressure 132 mm[Hg] Jermain Menchaca MD Work Phone: [facility] 01-09-2024 08:28-0500 Body height 175.3 cm Chata Hemmer PA Work Phone: [facility] 01-09-2024 08:28-0500 Body mass index (BMI) [Ratio] 24.04 kg/m2 Chata Hemmer PA Work Phone: [facility] 01-09-2024 08:28-0500 Body weight 73.85 kg Chata Hemmer PA Work Phone: [facility] 01-09-2024 08:28-0500 Diastolic blood pressure 72 mm[Hg] Chata Hemmer PA Work Phone: [facility] 01-09-2024 08:28-0500 Heart rate 104 /min Chata Hemmer PA Work Phone: [facility] 01-09-2024 08:28-0500 Respiratory rate 16 /min Chata Hemmer PA Work Phone: [facility] 01-09-2024 08:28-0500 SaO2% (BldA) [Mass fraction] 92 % Chata Hemmer PA Work Phone: [facility] 01-09-2024 08:28-0500 Systolic blood pressure 100 mm[Hg] Chata Hemmer PA Work Phone: [facility] 12-26-2023 08:30-0500 Body height 175.3 cm Chata Hemmer PA Work Phone: [facility] 12-26-2023 08:30-0500 Body mass index (BMI) [Ratio] 24.54 kg/m2 Chata Hemmer PA Work Phone: [facility] 12-26-2023 08:30-0500 Body weight 75.39 kg Chata Hemmer PA Work Phone: [facility] 12-26-2023 08:30-0500 Diastolic blood pressure 68 mm[Hg] Chata Hemmer PA Work Phone: [facility] 12-26-2023 08:30-0500 Heart rate 68 /min Chata Hemmer PA Work Phone: [facility] 12-26-2023 08:30-0500 Respiratory rate 16 /min Chata Jarvis PA Work Phone: [facility] 12-26-2023 08:30-0500 SaO2% (BldA) [Mass fraction] 91 % Chata Jarvis PA Work Phone: [facility] 12-26-2023 08:30-0500 Systolic blood pressure 122 mm[Hg] Chata Jarvis PA Work Phone: [facility] 10-30-2023 13:50-0400 Body height 175.3 cm Jermain Menchaca MD Work Phone: [facility] 10-30-2023 13:50-0400 Body mass index (BMI) [Ratio] 24.96 kg/m2 Jermain Menchaca MD Work Phone: [facility] 10-30-2023 13:50-0400 Body weight 76.66 kg Jermain Menchaca MD Work Phone: [facility] 10-30-2023 13:50-0400 Diastolic blood pressure 82 mm[Hg] Jermain Menchaca MD Work Phone: [facility] 10-30-2023 13:50-0400 Heart rate 74 /min Jermain Menchaca MD Work Phone: [facility] 10-30-2023 13:50-0400 SaO2% (BldA) [Mass fraction] 97 % Jermain Menchaca MD Work Phone: [facility] 10-30-2023 13:50-0400 Systolic blood pressure 138 mm[Hg] Jermain Menchaca MD Work Phone: [facility] Healthcare Encounters Encounter Date Encounter Type Care Provider Facility Start: 10-28-2024 End: 10-28-2024 Bamboo flowsheet [facility] Men[facility]aca [facility] Start: 10-28-2024 End: 10-28-2024 Bamboo flowsheet Jermain Menchaca MD Work Phone: [facility] Start: 10-28-2024 End: 10-28-2024 Assay of hemosiderin, quant Jermain Menchaca MD Work Phone: [facility] Start: 10-28-2024 End: 10-28-2024 Patient encounter procedure Jermain Menchaca MD Work Phone: [facility] Comment on above: Routine general medi toni examination at [facility] facility (Primary Dx); Benign essential hypertension ; Pure hypercholesterolemia ; Medicare annual wellness visit, subsequent; Retention of urine, unspecified Start: 10-28-2024 End: 10-28-2024 ambulatory JERMAIN MENCHACA Not Available Start: 04-29-2024 End: 04-29-2024 ambulatory JERMAIN MENCHACA Not Available Start: 01-22-2024 End: 01-22-2024 ambulatory Alberto Pacheco MD Facility:[facility] Start: 01-16-2024 End: 01-16-2024 ambulatory LITA SILVESTRE Not Available Start: 01-16-2024 End: 01-16-2024 Bamboo flowsheet Lita Silvestre DATA SCIENCES DIRECTOR Work Phone: [facility] Start: 01-16-2024 End: 01-16-2024 Bamboo flowsheet Lita Silvestre DATA SCIENCES DIRECTOR Work Phone: [facility] Start: 01-16-2024 End: 01-16-2024 ambulatory LITA SILVESTRE Not Available Start: 01-16-2024 End: 01-16-2024 Office outpatient visit 10 minutes Lita Silvestre DATA SCIENCES DIRECTOR Work Phone: [facility] Comment on above: Closed fracture of m ultiple pubic rami, right, with routine healing, subsequent encounter Start: 01-09-2024 End: 01-09-2024 Bamboo flowsheet Chata COLIN Work Phone: [facility] Start: 01-09-2024 End: 01-09-2024 Bamboo flowsheet Chata COLIN Work Phone: [facility] Start: 01-09-2024 End: 01-09-2024 Office outpatient visit 15 minutes Chata Jarvis PA Work Phone: [facility] Comment on above: Pressure ulcer of co ccygeal region, stage 2 (CMS/HCC) (Primary Dx) Start: 01-09-2024 End: 01-09-2024 ambulatory CHATA JARVIS Not Available Start: 01-01-2024 End: 01-01-2024 ambulatory Alberto Pacheco MD Facility:[facility] Start: 12-26-2023 End: 12-26-2023 Bamboo flowsheet [...] 12-25-2023 End: 12-25-2023 ambulatory Alberto Pacheco MD Facility:[facility] Start: 12-19-2023 End: 12-19-2023 Bamboo flowsheet Lita Silvestre DATA SCIENCES DIRECTOR Work Phone: [facility] Start: 12-19-2023 End: 12-19-2023 Bamboo flowsheet Lita Silvestre DATA SCIENCES DIRECTOR Work Phone: [facility] Start: 12-19-2023 End: 12-19-2023 Office outpatient visit 15 minutes Lita Silvestre DATA SCIENCES DIRECTOR Work Phone: [facility] Comment on above: Closed fracture of m ultiple pubic rami, right, with routine healing, subsequent encounter (Primary Dx); Closed nondisplaced fracture of medial wall of left acetabulum with routine healing, subsequent encounter; Left-sided low back pain with left-sided sciatica, unspecified chronicity Start: 12-19-2023 End: 12-19-2023 ambulatory LITA SILVESTRE Not Available Start: 11-23-2023 End: 11-23-2023 Bamboo flowsheet Lita Silvestre NP Work Phone: [facility] Start: 11-23-2023 End: 11-23-2023 Bamboo flowstita Silvestre NP Work Phone: [facility] Start: 11-23-2023 End: 11-23-2023 Office outpatient visit 10 minutes Lita Silvestre NP Work Phone: [facility] Comment on above: Closed fracture of m ultiple pubic rami, right, with routine healing, subsequent encounter; Closed nondisplaced fracture of medial wall of left acetabulum with routine healing, subsequent encounter Start: 11-23-2023 End: 11-23-2023 ambulatory LITA SILVESTRE Not Available Start: 11-09-2023 End: 11-09-2023 Bamboo flowstita Silvestre NP Work Phone: [facility] Start: 11-09-2023 End: 11-09-2023 Bamboo flowstita Silvestre NP Work Phone: [facility] Start: 11-09-2023 End: 11-09-2023 Office outpatient visit 15 minutes Lita Silvestre NP Work Phone: [facility] Comment on above: Closed fracture of m ultiple pubic rami, right, initial encounter (CMS/HCC) (Primary Dx); Nondisplaced fracture of medial wall of left acetabulum, initial encounter for closed fracture (CMS/HCC) Start: 11-09-2023 End: 11-09-2023 ambulatory LITA SILVESTRE Not Available Start: 11-06-2023 End: 11-07-2023 Emergency department patient visit MAIA CHAPA [facility] Start: 11-06-2023 End: 11-06-2023 Emergency department patient visit TIENFÉLIX MENCHACA [facility] Start: 10-30-2023 End: 10-30-2023 Assay of hemosiderin, quant Jermain Menchaca MD Work Phone: [facility] Work Phone: Start: 10-30-2023 End: 10-30-2023 Bamboo flowsheet Jermain Menchaca MD Work Phone: [facility] Start: 10-30-2023 End: 10-30-2023 Bamboo flowsheet Jermain Menchaca MD Work Phone: [facility] Start: 10-30-2023 End: 10-30-2023 Patient encounter procedure Jermain Menchaca MD Work Phone: [facility] Comment on above: Routine general medi toni examination at health care facility (Primary Dx); 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); 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); Benign essential hypertension (CMS/HCC); Pure hypercholesterolemia (CMS/HCC) Start: 10-30-2023 End: 10-30-2023 ambulatory JERMAIN MENCHACA Not Available Start: 08-28-2023 End: 08-28-2023 ambulatory Alberto Pacheco MD Facility: [facility] Start: 08-14-2023 End: 08-14-2023 ambulatory Alberto Pacheco MD Facility: [facility] Start: 08-07-2023 End: 08-07-2023 ambulatory Alberto Pacheco MD Facility: [facility] Start: 06-05-2023 End: 06-06-2023 Telephone encounter Sunitha Giron RN [facility] Start: 06-01-2023 End: 06-03-2023 Emergency department patient visit AGUSTIN GARCIA [facility] Start: 06-01-2023 End: 06-02-2023 ambulatory JERMAIN MENCHACA [facility] Start: 10-11-2022 End: 01-09-2024 Assay of hemosiderin, chioma Menchaca MD Work Phone: [facility] Healthcare Start: 12-17-2021 End: 12-17-[address] JERMAIN MENCHACA Facility:[facility] Procedures Date Procedure Procedure Detail Performing Clinician Start: 01-16-2024 Radiologic examinati on pelvis 1/2 views Lita Silvestre DATA SCIENCES DIRECTOR Work Phone: Start: 12-19-2023 Radiologic examinati on pelvis 1/2 views Lita Silvestre DATA SCIENCES DIRECTOR Work Phone: Start: 11-23-2023 Radiologic examinati on pelvis 1/2 views Lita Silvestre DATA SCIENCES DIRECTOR Work Phone: Plan of Treatment Date Care Activity Detail Author Start: 10-28-2025 Medicare Annual Wellness (AWV) Medicare Annual Wellness (AWV) [facility] Healthcare Start: 10-29-2024 Medicare Annual Wellness (AWV) Medicare Annual Wellness (AWV) [facility] Healthcare Start: 10-28-2024 End: 10-28-2025 CBC W Auto Differential panel - Blood CBC and differential Lab Routine Benign essential hypertension Pure hypercholesterolemia Medicare annual wellness visit, subsequent Expected: 10/28/2024 (Approximate), Expires: 10/28/2025 [facility] Comment on above: Expected: 10/28/2024 (Approximate), Expi res: 10/28/2025 Start: 10-28-2024 End: 10-28-2025 Comprehensive metabolic 2000 panel - Serum or Plasma Comprehensive metabolic panel Lab Routine Benign essential hypertension Pure hypercholesterolemia Medicare annual wellness visit, subsequent Expected: 10/28/2024 (Approximate), Expires: 10/28/2025 [facility] Comment on above: Expected: 10/28/2024 (Approximate), Expi res: 10/28/2025 Start: 10-28-2024 End: 10-28-2025 Lipid 1996 panel - Serum or Plasma Lipid panel Lab Routine Pure hypercholesterolemia Medicare annual wellness visit, subsequent Expected: 10/28/2024 (Approximate), Expires: 10/28/2025 [facility] Work Phone: Comment on above: Expected: 10/28/2024 (Approximate), Expi res: 10/28/2025 Start: 10-28-2024 End: 10-28-2024 Patient encounter procedure 10/28/2024 9:30 AM EDT Office Visit [facility] [place] [facility] [address] [place] [address] Jermain Menchaca MD [address] [place] [address] Arrived [facility] [place] [facility] Comment on above: Arrived Start: 10-21-2024 Influenza vaccination Influenza Vaccine (#1) [facility] Start: 06-01-2024 Adult BMI Screening Adult BMI Screening [facility] Start: 05-31-2024 Tobacco Screening Tobacco Screening [facility] Start: 04-29-2024 End: 04-29-2024 Patient encounter procedure 04/29/2024 9:45 AM EDT Office Visit [facility] [address] [facility] [address] [place] [address] Jermain Menchaca MD [address] [facility] [address] [place] [address] [facility] Start: 01-16-2024 End: 01-16-2024 Patient encounter procedure 01/16/2024 10:15 AM EST Office Visit [facility] [address] [place] [address] Lita Silvestre, DATA SCIENCES DIRECTOR [address] [place] [address] [facility] Start: 01-09-2024 End: 01-09-2024 Patient encounter procedure [facility] Comment on above: Arrived Start: 12-26-2023 End: 12-26-2023 Patient encounter procedure 12/26/2023 8:30 AM EST Office Visit [facility] [address] [place] [address] Chata Jarvis, PA [address] [place] [address] Arrived [facility] Comment on above: Arrived Start: 12-19-2023 End: 12-19-2023 Patient encounter procedure [facility] Comment on above: Closed fracture of multiple pubic rami, right, with routine healing, subsequent encounter; Closed nondisplaced fracture of medial wall of left acetabulum with routine healing, subsequent encounter Start: 12-07-2023 End: 12-07-2023 Patient encounter procedure 12/07/2023 9:30 AM EDT Office Visit [facility] [address] [place] [phone] Lita Silvestre, DATA SCIENCES DIRECTOR [address] [place] [address] [facility] Start: 11-23-2023 End: 11-23-2023 Patient encounter procedure 11/23/2023 2:00 PM EDT Office Visit [facility] [address] [place] [phone] Lita Silvestre, DATA SCIENCES DIRECTOR [address] [place] [address] Arrived [facility] Comment on above: Arrived Start: 11-09-2023 End: 11-09-2023 Patient encounter procedure 11/09/2023 1:45 PM EDT Office Visit [facility] [address] [facility] [place] [phone] Lita Silvestre, DATA SCIENCES DIRECTOR [address] [place] [address] Arrived [facility] Comment on above: Arrived Start: 10-30-2023 End: 10-30-2023 Patient encounter procedure 10/30/2023 2:00 PM EDT Office Visit [facility] [address] [address] [place] [phone] Jermain Menchaca MD [address] [facility] [address] [place] [address] Arrived [facility] Comment on above: Arrived Start: 10-22-2023 Influenza vaccination [facility] Start: 10-12-2023 Medicare Annual Wellness (AWV) Medicare Annual Wellness (AWV) [facility] Start: 2001 Fall Risk Screening Fall Risk Screening [facility] Start: 1986 Administration of varicella zoster vaccine Zoster (Shingles) Vaccine (1 of 2) [facility] Start: 08-25-1955 DTaP,Tdap and Td Vaccines (1 - Tdap) DTaP,Tdap and Td Vaccines (1 - Tdap) [facility] Start: 1948 Depression Screening Depression Screening [facility] Start: 1936 Medicare Annual Wellness Visit Medicare Annual Wellness Visit [facility] Immunizations Immunization Date Immunization Notes Care Provider Fa cility 12-26-2023 Influenza, High-dose Seasonal, Quadrivalent, Preservative Free Chata COLIN Work Phone: [facility] 12-26-2023 influenza virus vacc ine, unspecified formulation Jermain Menchaca MD Work Phone: [facility] 12-22-2022 influenza, high dose seasonal, preservative-free Jermain Menchaca MD Work Phone: [facility] 12-22-2022 influenza virus vacc ine, unspecified formulation Sunitha Giron RN [facility] 12-18-2021 Influenza, High-dose Seasonal, Quadrivalent, Preservative Free Jermain Menchaca MD Work Phone: [facility] 12-18-2021 Moderna Bivalent Silver ster Vaccination Jermain Menchaca MD Work Phone: [facility] 12-01-2020 Influenza, High-dose Seasonal, Quadrivalent, Preservative Free Jermain Menchaca MD Work Phone: [facility] 12-16-2019 influenza, injectabl e, quadrivalent, preservative free Jermain Menchaca MD Work Phone: [facility] 12-10-2018 influenza, injectabl e, quadrivalent, preservative free Jermain Menchaca MD Work Phone: [facility] 12-20-2017 influenza, high dose seasonal, preservative-free Jermain Menchaca MD Work Phone: [facility] 12-11-2017 influenza, injectabl e, quadrivalent, preservative free Jermain Menchaca MD Work Phone: [facility] 11-01-2016 influenza, high dose seasonal, preservative-free Jermain Menchaca MD Work Phone: [facility] 11-01-2016 pneumococcal conjuga te vaccine, 13 valent Jermain Menchaca MD Work Phone: [facility] 11-21-2015 pneumococcal polysaccharide vaccine, 23 valent Jermain Menchaca MD Work Phone: [facility] 11-19-2015 influenza, injectabl e, madin abhijit canine kidney, preservative free Jermain Menchaca MD Work Phone: [facility] 10-29-2015 influenza virus vacc ine, unspecified formulation Jermain Menchaca MD Work Phone: [facility] 10-29-2015 influenza, seasonal, injectable, preservative free Jermain Menchaca MD Work Phone: [facility] 01-03-2015 influenza, high dose seasonal, preservative-free Jermain Menchaca MD Work Phone: [facility] 04-14-2014 pneumococcal vaccine , unspecified formulation Jermain Menchaca MD Work Phone: [facility] 11-14-2012 influenza virus vacc ine, whole virus Jermain Menchaca MD Work Phone: [facility] 11-22-2011 influenza virus vacc ine, whole virus Jermain Menchaca MD Work Phone: [facility] 11-17-2010 influenza virus vacc ine, whole virus Jermain Menchaca MD Work Phone: [facility] 12-02-2009 influenza virus vacc ine, whole virus Jermain Menchaca MD Work Phone: [facility] 11-26-2008 influenza virus vacc ine, whole virus Jermain Menchaca MD Work Phone: [facility] 12-06-2006 influenza virus vacc ine, whole virus Jermain Menchaca MD Work Phone: [facility] Healthcare Payers Date Payer Category Payer Unknown [id number] 2014 Private Health Insurance [id number] 2001 Medicare [id number] 1959 Medicare [id number] 1959 Unknown [id number] 1936 Unknown [id number] 2.16.84 0.1.176073.3.579.2.593 1936 Unknown [id number] 2.16.8 40.1.344951.3.579.2.128 1936 Unknown [id number] 2.16.8 40.1.237789.3.579.2.1286 1936 Unknown [id number] 2.16.8 40.1.990446.3.579.2.1286 1936 Unknown [id number] 2.16.8 40.1.625170.3.579.2.1286 1936 Unknown [id number] 2.16.8 40.1.460857.3.579.2.1286 1936 Unknown [id number] 2.16.8 40.1.262577.3.579.2.1286 1936 Unknown [id number] 2.16. 840.1.094302.3.579.2.196 1936 Unknown [id number] 2.16. 840.1.215406.3.579.2.196 1936 Unknown [id number] 2.16. 840.1.550793.3.579.2.196 1936 Unknown [id number] 2.16. 840.1.981589.3.579.2.196 1936 Unknown [id number] 2.16. 840.1.912879.3.579.2. 1936 Unknown [id number] 2.16. 840.1.033183.3.579.2.196 1936 Unknown [id number] 2.16.8 40.1.297289.3.579.2.1258 1936 Unknown [id number] 2.16.84 0.1.158673.3.579.2.1258 1936 Unknown [id number] 2.16.84 0.1.867684.3.579.2.1258 1936 Unknown [id number] 2.16.84 0.1.993059.3.579.2.1258 1936 Unknown [id number] 2.16.84 0.1.530381.3.579.2.1258 1936 Unknown [id number] 2.16.84 0.1.244176.3.579.2.1258 1936 Unknown [id number] 2.16.84 0.1.935228.3.579.2.1258 1936 Unknown [id number] 2.16.84 [id number] 1935 Unknown [id number] 2.16.84 [id number] 1935 Unknown [id number] 2.16.84 [id number] 1936 Unknown [id number] 2.16.84 [id number] 1935 Unknown [id number] 2.16.84 [id number] Social History Date Type Detail Facility Start: 12-01-2021 End: 08-21-2023 Tobacco smoking status NHIS Ex-smoker [facility] Healthcare Work Phone: End: 02-20-1969 History of tobacco use Current smoker [facility] End: 02-20-1969 History of tobacco use Cigarette Smoker [facility] Start: 12-01-2021 End: 08-21-2023 Tobacco use and exposure Smokeless tobacco non-user [facility] Start: 10-30-2023 End: 10-28-2024 Alcoholic beverage intake Current drinker of alcohol (finding) [facility] Start: 10-11-2022 End: 10-30-2023 History of Social function [facility] Start: 10-11-2022 End: 10-30-2023 Tobacco use panel [facility] Start: 12-01-2022 Alcohol Comment 1-2 drinks monthly or less [facility] Start: 1935 Sex assigned at Not on file [facility] Has the [employer] or [employer] threatened to shut off services in your home in past 12Mo No [facility] In the past 12 month s, has lack of transportation kept you from medical appointments or from getting medications? No [facility] Start: 12-01-2021 Tobacco Comment Quit smoking over 40 years ago [facility] Start: 08-03-2018 Alcohol Comment rare [facility] Goals Date Patient Goal Desired Activity /State Personal health goal Comment on above: Formatting of this n ote might be different from the original. Evaluation of progress towards goal: Safe dc transition from hospital to home with family support. Functional Status Date Assessment Result Facility 10-28-2024 Patient Health Quest ionnaire 2 item (PHQ-2) [Reported] [facility] Clinical Notes 06-21-2021 to 10-28-2024 Jermain Menchaca MD - 10/28/2024 9:37 AM Shilpa Menchaca MD - 10/28/2024 9:36 AM Shilpa Menchaca MD - 10/28/2024 9:30 AM Bj Silvestre NP - 01/16/2024 10:15 AM EST Note Date & Type Note Facility 10-28-2024 History of Present illness Narrative Associated Problem(s): Medicare annual wellness visit, subsequent Colonoscopy every 10 years or Cologuard every 3 years ages 50-75 Flu Vaccine yearly Pneumovax and Prevnar Mammo yearly for women and PSA yearly for men Labs/Screening yearly to rule out Diabetes, Chronic Kidney disease and liver disease Hepatitis Screen forat risk populations Shingles vaccine after 65 if indicated Tetanus Vaccine every 10 years Lipids yearly under the age of 75 If Smoking history: one time CT scan of chest and Ultrasound of Aorta to screen for Anuerysm Associated Problem(s): Benign essential hypertension Our specific goals, for your hypertension, is to keep your blood pressure less than 140/90, and the importance of weight control. We made recommendations on how to control your blood pressure, and minimize your risk of these copmplications. We also discussed your current barriers to a healthy living and importance of healthy diet and exercise. Prior to your visit today we have reviewed your chart and formed a plan to assist with providing you the best possible care. We reviewed the possible complications of hypertension including, stroke, heart failure and kidney impairment. In addition, we discussed your medications, the importance of taking them as prescribed. DASH diet handouts Images from the original note were not included. Subjective : Chief Complaint: Enrique Mike is an 89 y.o. male here for an annual wellness visit. [facility] I have reviewed and reconciled the history and medication list with the patient today. Current Outpatient Medications Medication Sig Dispense Refill levothyroxine (Synthroid, Levoxyl) 100 MCG tablet TAKE 1 TABLET BY MOUTH DAILY *hold on sundays* 90 tablet 3 meloxicam (Mobic) 15 MG tablet TAKE 1 TABLET BY MOUTH IN THE MORNING WITH FOOD 100 tablet 3 acetaminophen (Tylenol) 325 MG tablet Take 325 [...] mg by mouth in the morning. HYDROcodone-acetaminophen (B[place]ingham) 5-325 MG tablet Take 1 tablet by mouth every 6 (six) hours if needed lisinopril 10 MG tablet Take 1 tablet (10 mg) by mouth Daily 100 tablet 3 lovastatin (Mevacor) 20 MG tablet Take 1 tablet (20 mg) by mouth in the evening. Take with meals 100 tablet 3 Nutritional Supplements (PROSTA JENISE PO) Take by mouth 2 (two) times a day. tamsulosin (Flomax) 0.4 MG 24 hr capsule Take 1 capsule (0.4 mg) by mouth Daily 100 capsule 3 traMADol (Ultram) 50 MG tablet Take 50 mg by mouth every 6 (six) hours if needed for severe pain No current facility-administered medications for this visit. Review of Systems Constitutional: Negative for chills, fatigue, fever and unexpected weight change. Respiratory: Negative for cough, chest tightness and shortness of breath. Cardiovascular: Negative for chest pain. Gastrointestinal: Negative for abdominal pain, blood in stool, constipation, diarrhea, nausea and vomiting. Genitourinary: Negative for dysuria, enuresis, frequency and hematuria. Musculoskeletal: Positive for joint swelling. Negative for back pain. Pain Management Neurological: Negative for dizziness, tremors, syncope, facial asymmetry, speech difficulty and headaches. Psychiatric/Behavioral: Negative for agitation, behavioral problems, confusion and dysphoric mood. The patient is not nervous/anxious. List of current healthcare providers: Patient Care Team: Jermain Menchaca MD as PCP - General (Family Medicine) Jermain Menchaca MD as PCP - ACO Reach Medicare Annual Visit Over the past 2 weeks, how often have you been bothered by any of the following problems? Little interest or pleasure in doing things: Not at all Sweeney Fall Risk History of Falling, Immediate or Within 3 Months: No Health Risk Assessment Form Do you need help eating, bathing, using the toilet, dressing, or getting around your home?: No Can you prepare your own meals?: Yes Can you do your own housework without help?: Yes Can you shop for groceries or clothes without help?: Yes Do you exercise for about 20 minutes 3 or more days a week?: Yes How confident are you that you can control and manage most of your health problems?: Very confident Can you mange your money, credit cards and accounts, pay bills and taxes?: Yes Vision Screening: Yes, no gross abnormalities Hearing Screening: Yes, no gross abnormalities Cognitive Screening Self Assessment: No overt cognitive deficiency is apparent by direct observation Three Word Registration: Captain, Garden, Picture Clock Drawing: Normal Clock - 2 Three Word Recall: All 3 words correct - 3 Total Score (0-5 Points): 5 Pain Assessment Pain Score: 0 - No pain Advance Care Planning Do you have a living will?: Yes Do you have a medical power of environmental attorney?: Yes Objective : BP 132/82 Pulse 79 Ht 5' 9 Wt 168 lb SpO2 95% BMI 24.81 kg/m No results found. Physical Exam Vitals reviewed. Constitutional: Appearance: Normal appearance. HENT: Head: Normocephalic. Neck: Vascular: No carotid bruit. Cardiovascular: Rate and Rhythm: Normal rate and regular rhythm. Pulses: Normal pulses. Pulmonary: Effort: Pulmonary effort is normal. Breath sounds: Normal breath sounds. Neurological: General: No focal deficit present. Mental Status: He is alert and oriented to person, place, and time. Psychiatric: Mood and Affect: Mood normal. Assessment/Plan : The following health maintenance schedule was reviewed with the patient and provided in printed form in the after visit summary: Health Maintenance Topic Date Due Influenza Vaccine (1) 10/21/2024 Medicare Annual Wellness (AWV) 10/29/2024 Pneumococcal Vaccine: 65+ Years Completed Advance Care Planning Patient willing to discuss ACP. If in place, renew periodically. If not in place, recommend obtaining ACP. Assessment/Plan Problem List Items Addressed This Visit Pure hypercholesterolemia Relevant Orders Lipid panel CBC and differential Comprehensive metabolic panel Benign essential hypertension Our specific goals, for your hypertension, is to keep your blood pressure less than 140/90, and the importance of weight control. We made recommendations on how to control your blood pressure, and minimize your risk of these copmplications. We also discussed your current barriers to a healthy living and importance of healthy diet and exercise. Prior to your visit today we have reviewed your chart and formed a plan to assist with providing you the best possible care. We reviewed the possible complications of hypertension including, stroke, heart failure and kidney impairment. In addition, we discussed your medications, the importance of taking them as prescribed. DASH diet handouts Relevant Orders CBC and differential Comprehensive metabolic panel Medicare annual wellness visit, subsequent Colonoscopy every 10 years or Cologuard every 3 years ages 50-75 Flu Vaccine yearly Pneumovax and Prevnar Mammo yearly for women and PSA yearly for men Labs/Screening yearly to rule out Diabetes, Chronic Kidney disease and liver disease Hepatitis Screen forat risk populations Shingles vaccine after 65 if indicated Tetanus Vaccine every 10 years Lipids yearly under the age of 75 If Smoking history: one time CT scan of chest and Ultrasound of Aorta to screen for Anuerysm Relevant Orders Lipid panel CBC and differential Comprehensive metabolic panel Other Visit Diagnoses Routine general medical examination at health care facility - Primary Retention of urine, unspecified Relevant Medications tamsulosin (Flomax) 0.4 MG 24 hr capsule ' Orders Placed This Encounter Procedures Lipid panel Standing Status: Future Number of Occurrences: 1 Expected Date: 10/28/2024 Expiration Date: 10/28/2025 CBC and differential Standing Status: Future Number of Occurrences: 1 Expected Date: 10/28/2024 Expiration Date: 10/28/2025 Print requisition?: No Comprehensive metabolic panel Standing Status: Future Number of Occurrences: 1 Expected Date: 10/28/2024 Expiration Date: 10/28/2025 Print requisition?: No Electronically signed by Jermain Menchaca MD on October 28, 2024 documented in this encounter [facility] 01-16-2024 History of Present illness Narrative Images from the original note were not included. Chief Complaint Patient presents with Pelvis - Follow-up HISTORY OF PRESENT ILLNESS: Enrique Mike is an 88 y.o. @ male. Low back/pelvis injury x 10 weeks 2 days, 11/05/23, fell back off a ladder. Went to [facility] ER 11/05, had CT abdomen pelvis and [...] in tailbone with prolonged sitting. Prior tx: [facility] ER 11/06/23, CT abdomen pelvis, norco, TYL, XR [facility] 12/19/23, XR [facility] 01/16/24 ALLERGIES: No Known Allergies HOME MEDICATIONS: Current Outpatient Medications Medication Instructions acetaminophen (TYLENOL) 325 mg, Oral, Every 6 hours PRN baclofen (LIORESAL) 10 mg, Oral, 2 times daily PRN co-enzyme Q-10 100 mg, Oral, Daily finasteride (PROSCAR) 5 mg, Oral, Daily HYDROcodone-acetaminophen (B[place]) 5-325 MG tablet 1 tablet, Oral, Every [...] rami and left acetabulum fracture. Lita Silvestre MACHINE STAPLER-LINE OPERATOR ASSESSMENT: ICD-10-CM 1. Closed fracture of multiple [...] develop for requiring urgent evaluation. Lita Silvestre MACHINE STAPLER-LINE OPERATOR documented in this encounter [facility] 01-09-2024 History of Present illness Narrative [...] mg by mouth in the morning. HYDROcodone-acetaminophen ([place]) 5-325 MG tablet Take 1 tablet by [...] Decompression laminectomy L3-L4, L4-L5 OTHER SURGICAL HISTORY Procedure:Surgery;Disease:Pneumoth orax OTHER SURGICAL HISTORY Right 08/08/[address] Rutherford. [facility] [place] REPAIR OF HAMMERTOE,ONE Bilateral Procedure:Surgical repair;Disease:Hammer Toe [...] now scabbed. He is doing well with [employer]. Pt is being told by PM to [...] Appointment As Scheduled. documented in this encounter [facility] 12-26-2023 History of Present illness Narrative [...] like.He has been using a cream the air control/anti air warfare officer prescribed (doesn't know the name of the [...] mg by mouth in the morning. HYDROcodone-acetaminophen (B[place]) 5-325 MG tablet Take 1 tablet by [...] Decompression laminectomy L3-L4, L4-L5 OTHER SURGICAL HISTORY Procedure:Surgery;Disease:Pneumoth orax OTHER SURGICAL HISTORY Right 08/08/[address] Rutherford. [facility] [place] REPAIR OF HAMMERTOE,ONE Bilateral Procedure:Surgical repair;Disease:Hammer Toe [...] vaccination - Influenza, high-dose seasonal, quadrivalent, PF ([id number]) (Fluzone High Dose [place] 0.7mL dose) Provided pt with Flu shot today. He tolerated this well. Follow up for Wound Check in 1-2 Weeks. documented in this encounter [facility] 12-25-2023 Telephone encounter Note Sounds good [facility] Work Phone: 12-25-2023 Miscellaneous Notes Sounds good I can see him in [place] today but I dont know how much I will be able to do. Gerardo son called for patient stated his dad was seen for L-spine and hip pain by you and Dr Rutherford he was referred to pain mgmt in [facility] also, he can hardly walk and in a lot of pain. He asked where he should start, he did try [facility] mgmt number but had trouble getting ahold of them, I gave him the number to hospital and told him to ask for pain mgmt. He asked should he go there or can you or Dr Rutherford see him? Please advise. His call back [phone] documented in this encounter [facility] 12-25-2023 Telephone encounter Note I can see him in [place] today but I dont know how much I will be able to do. [facility] 12-25-2023 Telephone encounter Note Gerardo son called for patient stated his dad was seen for L-spine and hip pain by you and Dr Rutherford he was referred to pain mgmt in [facility] also, he can hardly walk and in a lot of pain. He asked where he should start, he did try [facility] mgmt number but had trouble getting ahold of them, I gave him the number to hospital and told him to ask for pain mgmt. He asked should he go there or can you or Dr Rutherford see him? Please advise. His call back [phone] [facility] 12-19-2023 History of Present illness Narrative Images from the original note were not included. Chief Complaint Patient presents with Pelvis - Follow-up HISTORY OF PRESENT ILLNESS: Enrique Mike is an 88 y.o. @ male. Low back/pelvis injury x 6 weeks 2 days, 11/05/23, fell back off a ladder. Went to [facility] ER 11/05, had CT abdomen pelvis and given norco. Hx decompressive laminectomy L3-4, L4-5 (12/01/21)- Dr Rutherford Walking with a walker. States he was doing fine but has recently been having a terrible time. Unsure if something shifted. Pain is mostly LT sided. Taking TYL and IBU. Prior tx: [facility] ER 11/06/23, CT abdomen pelvis, norco, TYL, XR [facility] 12/19/23 ALLERGIES: No Known Allergies HOME MEDICATIONS: Current Outpatient Medications Medication Instructions acetaminophen (TYLENOL) 325 mg, Oral, Every 6 hours PRN baclofen (LIORESAL) 10 mg, Oral, 2 times daily PRN co-enzyme Q-10 100 mg, Oral, Daily finasteride (PROSCAR) 5 mg, Oral, Daily HYDROcodone-acetaminophen (B[place]) 5-325 MG tablet 1 tablet, Oral, Every [...] rami and left acetabulum fracture. Lita Silvestre APRN-DARLENE ASSESSMENT: ICD-10-CM 1. Closed fracture of multiple [...] develop for requiring urgent evaluation. Lita Silvestre APRN-LINE OPERATOR documented in this encounter [facility] 11-23-2023 History of Present illness Narrative Images from the original note were not included. Chief Complaint Patient presents with Pelvis - Follow-up HISTORY OF PRESENT ILLNESS: Enrique Mike is an 88 y.o. @ male. Low back/pelvis injury x 2 weeks 4 days, 11/05/23, fell back off a ladder. Went to [facility] ER 11/05, had CT abdomen pelvis and given norco. Hx decompressive laminectomy L3-4, L4-5 (12/01/21)- Dr Rutherford WBAT with walker. States he sat for a while in a hard chair, had increased pain. Pain near RT hip/buttocks. Taking TYL. Denies N/T. Does not wake at HS, sleep better in chair. Increased pain with walking. Prior tx: [facility] ER 11/06/23, CT abdomen pelvis, norco, TYL ALLERGIES: No Known Allergies HOME MEDICATIONS: Current Outpatient Medications Medication Instructions acetaminophen (TYLENOL) 325 mg, Oral, Every 6 hours PRN baclofen (LIORESAL) 10 mg, Oral, 2 times daily PRN co-enzyme Q-10 100 mg, Oral, Daily finasteride (PROSCAR) 5 mg, Oral, Daily HYDROcodone-acetaminophen ([place]) 5-325 MG tablet 1 tablet, Oral, Every [...] rami and left acetabulum fracture. Lita Silvestre MACHINE STAPLER-LINE OPERATOR ASSESSMENT: ICD-10-CM 1. Closed fracture of multiple [...] develop for requiring urgent evaluation. Lita Silvestre MACHINE STAPLER-LINE OPERATOR documented in this encounter [facility] 11-09-2023 History of Present illness Narrative Images from the original note were not included. Chief Complaint Patient presents with Lower Back - Pain HISTORY OF PRESENT ILLNESS: Enrique Mike is an 88 y.o. @ male. Est pt, new problem. Low back/pelvis injury x 4 days, 11/05/23, fell back off a ladder. Went to [facility] ER 11/05, had CT abdomen pelvis and given norco. Hx decompressive laminectomy L3-4, L4-5 (12/01/21)- Dr Rutherford Walking with a walker. Denies pain in low back. Pain near RT hip/buttocks. Taking TYL. Denies N/T. Does not wake at HS, sleep better in chair. Increased pain with walking. Prior tx: [facility] ER 11/06/23, CT abdomen pelvis, norco ALLERGIES: No Known Allergies HOME MEDICATIONS: Current Outpatient Medications Medication Instructions acetaminophen (TYLENOL) 325 mg, Oral, Every 6 hours PRN baclofen (LIORESAL) 10 mg, Oral, 2 times daily PRN co-enzyme Q-10 100 mg, Oral, Daily finasteride (PROSCAR) 5 mg, Oral, Daily HYDROcodone-acetaminophen ([place]) 5-325 MG tablet 1 tablet, Oral, Every [...] The patient is experiencing tenderness in the anterior. Other Sensation: normal Comments: ROM not stressed due to fracture. Ambulating with walker Left Hip Exam Tenderness The patient is experiencing tenderness in the anterior and posterior. Other Sensation: normal Back Exam Comments: Some thoracic pain from rib fracture Vitals: There is no height or weight on file to calculate BMI. IMAGING: ASSESSMENT: ICD-10-CM 1. Closed fracture of multiple pubic rami, right, initial encounter ([facility]) S32.591A 2. Nondisplaced fracture of medial wall of left acetabulum, initial encounter for closed fracture ([facility]) S32.475A Procedures PLAN: I reviewed CT findings and ER note with the patient and discussed treatment options, answered questions. I recommend that he be WBAT with walker and to avoid any impact activities. He will call with any worsening pain. Follow up in 1 month for RCK and xray. Questions answered in laymen terms at the bedside. The diagnosis, home exercise plan and any ongoing restrictions/ recommendations reviewed. If unable to be reached in office, I recommend evaluation at nearest Emergency Room if any symptoms worsened or new symptoms develop for requiring urgent evaluation. Lita Silvestre MACHINE STAPLER-LINE OPERATOR documented in this encounter [facility] 10-30-2023 History of Present illness Narrative Associated Problem(s): Embolism and thrombosis of unspecified artery ([facility]) Baby aspirin 2 a day Images from the original note were not included. Subjective : Chief Complaint: Enrique Mike is an 88 y.o. male here for an annual wellness visit. I have reviewed and reconciled the history and medication list with the patient today. Current Outpatient Medications Medication Sig Dispense Refill acetaminophen (Tylenol) 325 [...] 5 mg by mouth in the morning. levothyroxine (Synthroid, Levoxyl) 100 MCG tablet TAKE 1 TABLET BY MOUTH DAILY; hold on sundays 90 tablet 3 lisinopril 10 MG tablet Take 1 tablet (10 mg) by mouth Daily 30 tablet 2 lovastatin (Mevacor) 20 MG tablet TAKE 1 TABLET BY MOUTH with evening meal 100 tablet 3 meloxicam (Mobic) 15 MG tablet TAKE 1 TABLET BY MOUTH IN THE MORNING WITH FOOD 100 tablet 3 Nutritional Supplements (PROSTA JENISE PO) Take by mouth 2 (two) times a day. tamsulosin (Flomax) 0.4 MG 24 hr capsule Take 1 capsule (0.4 mg) by mouth in the morning. 100 capsule 3 No current facility-administered medications for this visit. Review of Systems Constitutional: Negative for chills, fatigue, fever and unexpected weight change. Eyes: Positive for visual disturbance. Respiratory: Negative for cough. Cardiovascular: Negative for chest pain. Gastrointestinal: Negative for abdominal pain, blood in stool, constipation, diarrhea, nausea and vomiting. Genitourinary: Negative for dysuria, enuresis, frequency and hematuria. Musculoskeletal: Negative for back pain. Neurological: Negative for dizziness, tremors, syncope, facial asymmetry and speech difficulty. Psychiatric/Behavioral: Negative for agitation, behavioral problems, confusion and dysphoric mood. The patient is not nervous/anxious. List of current healthcare providers: Patient Care Team: Jermain Menchaca MD as PCP - General (Family Medicine) Jermain Menchaca MD as PCP - ACO Reach Medicare Annual Visit Over the past 2 weeks, how often have you been bothered by any of the following problems? Little interest or pleasure in doing things: Not at all Sweeney Fall Risk History of Falling, Immediate or Within 3 Months: No Health Risk Assessment Form Do you need help eating, bathing, using the toilet, dressing, or getting around your home?: No Can you prepare your own meals?: Yes Can you do your own housework without help?: Yes Can you shop for groceries or clothes without help?: Yes Do you exercise for about 20 minutes 3 or more days a week?: Yes How confident are you that you can control and manage most of your health problems?: Very confident Vision Screening: Yes, no gross abnormalities Hearing Screening: Yes, no gross abnormalities Cognitive Screening Self Assessment: No overt cognitive deficiency is apparent by direct observation Three Word Registration: Rodriguez Cobian, Finger Clock Drawing: Normal Clock - 2 Three Word Recall: All 3 words correct - 3 Total Score (0-5 Points): 5 Pain Assessment Pain Score: 0 - No pain Advance Care Planning Do you have a living will?: Yes Do you have a medical power of environmental attorney?: Yes Objective : BP 138/82 Pulse 74 Ht 5' 9 Wt 169 lb SpO2 97% BMI 24.96 kg/m No results found. Physical Exam Vitals reviewed. Constitutional: Appearance: Normal appearance. HENT: Head: Normocephalic. Neck: Vascular: No carotid bruit. Cardiovascular: Rate and Rhythm: Normal rate and regular rhythm. Pulses: Normal pulses. Pulmonary: Effort: Pulmonary effort is normal. Breath sounds: Normal breath sounds. Neurological: General: No focal deficit present. Mental Status: He is alert and oriented to person, place, and time. Psychiatric: Mood and Affect: Mood normal. Assessment/Plan : The following health maintenance schedule was reviewed with the patient and provided in printed form in the after visit summary: Health Maintenance Topic Date Due Medicare Annual Wellness (AWV) 10/12/2023 Influenza Vaccine (1) 10/22/2023 Pneumococcal Vaccine: 65+ Years Completed Advance Care Planning Patient willing to discuss ACP. If in place, renew periodically. If not in place, recommend obtaining ACP. Assessment/Plan Problem List Items Addressed This Visit Pure hypercholesterolemia (CMS/HCC) This is a chronic medical condition that is stable since last assessment. No changes in treatment are suggested at this time. Continue Current meds. Benign essential hypertension (CMS/HCC) Our specific goals, for your hypertension, is to keep your blood pressure less than 140/90, and the importance of weight control. We made recommendations on how to control your blood pressure, and minimize your risk of these copmplications. We also discussed your current barriers to a healthy living and importance of healthy diet and exercise. Prior to your visit today we have reviewed your chart and formed a plan to assist with providing you the best possible care. We reviewed the possible complications of hypertension including, stroke, heart failure and kidney impairment. In addition, we discussed your medications, the importance of taking them as prescribed. 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 Electronically signed by Jermain Menchaca MD on October 30, 2023 Associated Problem(s): Pure hypercholesterolemia (CMS/HCC) This is a chronic medical condition that is stable since last assessment. No changes in treatment are suggested at this time. Continue Current meds. Associated Problem(s): Benign essential hypertension (CMS/HCC) Our specific goals, for your hypertension, is to keep your blood pressure less than 140/90, and the importance of weight control. We made recommendations on how to control your blood pressure, and minimize your risk of these copmplications. We also discussed your current barriers to a healthy living and importance of healthy diet and exercise. Prior to your visit today we have reviewed your chart and formed a plan to assist with providing you the best possible care. We reviewed the possible complications of hypertension including, stroke, heart failure and kidney impairment. In addition, we discussed your medications, the importance of taking them as prescribed. 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 Duff, Dr. 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 retinal artery occlusion Spoke with patient he said he will not need an appt with us that he is scheduled to go to [facility] for treatment there documented in this encounter [facility] 06-05-2023 Telephone encounter Note ----- Message from ALMA ROSA Escobedo sent at 06/02/2023 3:21 PM EDT ----- Please arrange 4-6 week follow-up with Dr. Duff, Dr. 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 retinal artery occlusion [facility] 06-05-2023 Telephone encounter Note Spoke with patient he said he will not need an appt with us that he is scheduled to go to [facility] for treatment there [facility] 10-15-2021 Note PROCEDURE: Multiplan ar, multisequence imaging [...] signed by Kota Vargas on 10/18/2021 0738 [facility] Operator 06-23-2021 Note [id number] 06-23-2021 Note [id number] 06-22-[address] HARRIS [...] or concerns, please call the office at [phone] -Follow up as scheduled [facility] 06-22-2021 Note [facility] Discharge Summary PERSON INFORMATION Name ENRIQUE MIKE Age 85 Years 1935 Sex MALE Language Uzbek PCP JERMAIN MENCHACA MD Marital Status Med Service Observation Acct# Arrival 06/21/2021 05:54:00 Visit Reason SURGERY - LEFT REVERSE TOTAL SHOULDER - ARTHREX Acuity LOS 000 29:26 Address: [address] [place] [address] Comment: PROVIDER INFORMATION VITALS INFORMATION Vital Sign [...] Shoulder (MHAHUDMELISSA) Follow up: With: Address: When: [facility] [address] [place] [address], [address] [place] [address] [facility] (1) 06/29/2021 10:45 AM DIAGNOSIS Osteoarthritis of left shoulder; Other specific arthropathies, not elsewhere classified, left shoulder; Rotator cuff tear arthropathy of left shoulder Comment: PHYS DOC NOTES [facility] 06-21-2021 Note [id number] Evaluation note Diagnosis Closed fracture [...] in this encounter [facility]* Diagnosis Routine general medical examination at health care facility- Primary Routine general medical examination at a health care facility 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) Benign essential hypertension (CMS/HCC) Essential hypertension, benign Pure hypercholesterolemia (CMS/HCC) Pure hypercholesterolemia documented [facility] encounter [facility]* Diagnosis Closed fracture of multiple pubic rami, right, initial encounter (CMS/HCC)- Primary Nondisplaced fracture of medial wall of left acetabulum, initial encounter for closed fracture (CMS/HCC) documented in this encounter [facility] HealthcareEvaluation note* Diagnosis Screening PSA (prostate specific antigen)- Primary Special screening for malignant neoplasm of prostate Cervicalgia Benign essential hypertension Essential hypertension, benign Abnormal glucose tolerance test Impaired glucose tolerance test Nocturia Pure hypercholesterolemia Pure hypercholesterolemia Screening for prostate cancer Special screening for malignant neoplasm of prostate Routine general medical examination at health care facility Routine general medical examination at a health care facility Acquired hypothyroidism Unspecified hypothyroidism Stage 3b chronic kidney disease (CMS-HCC) Benign essential hypertension- Primary Essential hypertension, benign Great toe pain, left Paronychia of great toe of left foot 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- Primary Routine general medical examination at health care facility- Primary Routine general medical examination at a health care facility 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 due to embolism (HCC) Benign essential hypertension Essential hypertension, benign Pure hypercholesterolemia Pure hypercholesterolemia Benign essential hypertension- Primary Essential hypertension, benign 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 Routine general medical examination at health care facility- Primary Routine general medical examination at a health care facility Benign essential hypertension Essential hypertension, benign Pure hypercholesterolemia Pure hypercholesterolemia Medicare annual wellness visit, subsequent Retention of urine, unspecified documented in this encounter [facility] HealthcareInstructionsNot on [facility]ocumented [facility] Purpose Family History No Family History Records FoundNo Family History Records FoundNo Family History Records FoundNo Family History Records FoundNo Family History Records FoundNo Family History Records FoundNo Family History Records Found Advance Directives No Advanced Directives Records Found Date Activated Date Inactivated Comments 06/01/2023 4:59 PM 06/02/2023 9:12 PM Date Activated Date Inactivated Comments 12/09/2021 12:45 AM 12/10/2021 4:05 PM Date Activated Date Inactivated Comments 12/01/2021 4:41 PM 12/02/2021 3:21 PM Additional Source Comments (unrecognized sect ion and content) No Status Records FoundNo Status Records FoundNo Status Records FoundNo Status Records FoundNo Status Records FoundNo Status Records FoundNo Status Records Found INFORMATION SOURCE (unrecogn ized section and content) DATE CREATED AUTHOR 10/13/2021 [facility] DATE CREATED AUTHOR AUTHOR'S ORGANIZ ATION 10/18/2021 [facility] dical Specialist DATE CREATED AUTHOR AUTHOR'S ORGANIZ ATION 12/20/2021 [facility] DATE CREATED AUTHOR AUTHOR'S ORGANIZ ATION 11/07/2023 [facility] DATE CREATED AUTHOR AUTHOR'S ORGANIZ ATION 01/26/2024 [facility] DATE CREATED AUTHOR AUTHOR'S ORGANIZ ATION 10/29/2024 [facility] dical Specialists EPIC DATE CREATED AUTHOR AUTHOR'S ORGANIZ ATION 11/02/2024 [facility] Care Teams (unrecognized sec tion and content) Senior Power Plant Operator Relationship Specialty Start Date End Date Jermain Menchaca MD [address] [facility] [address] [place] [address] PCP - General Family Medicine 07/04/22 Jermain Menchaca MD [address] [facility] [address] [place] [address] PCP - ACO Reach 07/14/22 Senior Power Plant Operator Relationship Specialty Start Date End Date Jermain Menchaca MD [address] [facility] [address] [place] [address] PCP - General Family Medicine 07/04/22 Jermain Menchaca MD [address] [facility] [address] [place] [address] PCP - ACO Reach 07/14/22 Senior Power Plant Operator Relationship Specialty Start Date End Date Jermain Menchaca MD [address] [facility] [address] [place] [address] PCP - General Family Medicine 07/04/22 Jermain Menchaca MD [address] [place] [address] [place] [address] PCP - ACO Reach 07/14/22 Senior Power Plant Operator Relationship Specialty Start Date End Date Jermain Menchaca MD [address] [place] [address] [place] [address] PCP - General Family Medicine 07/04/22 Jermain Menchaca MD [address] [place] [address] [place] [address] PCP - ACO Reach 07/14/22 Senior Power Plant Operator Relationship Specialty Start Date End Date Jermain Menchaca MD [address] [place] [address] [place] [address] PCP - General Family Medicine 07/04/22 Jermain Menchaca MD [address] [place] [address] [place] [address] PCP - ACO Reach 07/14/22 Senior Power Plant Operator Relationship Specialty Start Date End Date Jermain Menchaca MD [address] [place] [address] [place] [address] PCP - General Family Medicine 07/04/22 Jermain Menchaca MD [address] [place] [address] [place] [address] PCP - ACO Reach 07/14/22 Senior Power Plant Operator Relationship Specialty Start Date End Date Jermain Menchaca MD [address] [place] [address] [place] [address] PCP - General Family Medicine 07/04/22 Jermain Menchaca MD [address] [place] [address] [place] [address] PCP - ACO Reach 07/14/22 Senior Power Plant Operator Relationship Specialty Start Date End Date Jermain Menchaca MD [address] [place] [address] [place] [address] PCP - General Family Medicine 07/04/22 Jermain Menchaca MD [address] [facility] [address] [place] [address] PCP - ACO Reach 07/14/22 Senior Power Plant Operator Relationship Specialty Start Date End Date Jermain Menchaca MD [address] [facility] [address] [place] [address] PCP - General Family Medicine 07/04/22 Jermain Menchaca MD [address] [facility] [address] [place] [address] PCP - ACO Reach 07/14/22 Senior Power Plant Operator Relationship Specialty Start Date End Date Jermain Menchaca MD [address] [facility] [address] [place] [address] PCP - General Family Medicine 07/04/22 Jermain Menchaca MD [address] [facility] [address] [place] [address] PCP - ACO Reach 07/14/22 Senior Power Plant Operator Relationship Specialty Start Date End Date Jermain Menchaca MD [address] [facility] [address] [place] [address] PCP - General Family Medicine 07/04/22 Jermain Menchaca MD [address] [facility] [address] [place] [address] PCP - ACO Reach 07/14/22 Senior Power Plant Operator Relationship Specialty Start Date End Date Jermain Menchaca MD [address] [facility] [address] [place] [address] PCP - General Family Medicine 07/04/22 Jermain Menchaca MD [address] [facility] [address] [place] [address] PCP - ACO Reach 07/14/22 Senior Power Plant Operator Relationship Specialty Start Date End Date Jermain Menchaca MD [facility] [address] PCP - General Family Medicine 08/03/18 Senior Power Plant Operator Relationship Specialty Start Date End Date Jermain Menchaca MD [address] [facility] [address] [place] [address] PCP - General Family Medicine 07/04/22 Jermain Menchaca MD [address] [facility] [address] [place] [address] PCP - ACO Reach 07/14/22 Reason for Visit (unrecogniz ed section and content) Reason Comments Follow-up Reason Onset Date Comments question 12/25/2023 Reason Comments Medicare Annual Wellness Visit Subsequen t Reason Comments Pain FOR RECORDS PERTAINING TO PATIENTS WHO ARE [...] BE BASED ON THE PRIMARY CLINICAL RECORDS. [employer] [facility]. provides no warranty or guarantee of the accuracy or completeness of information in this document.
== END 2024-11-07 07:52 | disposition home or self-care (01) ==
LOC: PM 07:52
PROVIDERS: PCP Family Medicine; Visit Provider Nurse Practitioner
DX: M54.50 Low back pain, unspecified (principal); M48.062 Spinal stenosis, lumbar region with neurogenic claudication; M46.1 Sacroiliitis, not elsewhere classified
CPT/HCPCS: G0463

== ENCOUNTER 2024-11-25 12:14 | Day surgery (SDC) | payer MEDICARE, SELFPAY ==
--- OUTSIDE RECORDS SUMMARY | 2024-11-25 12:19 | XMS_ITS | CCD ---
Author Organization [facility] Care Team Providers Care College Director Name Role Phone DR JERMAIN MENCHACA Attending Unavailable NIKOLAI, DR ALY Primary Care Unavailable NIKOLAI, DR ALY Admitting Unavailable Jermain Menchaca MD Primary Care Provider Jermain Menchaca MD Unavailable Junior LEDEZMA, Andhussain Ansari Attending Unavailable Giedrebecca LEDEZMA, Andrius Ansari Attending Unavailable Giedraitis , Andrius Ansari Attending Unavailable Giirasema LEDEZMA, Andrius Ansari Attending Unavailable Giirasema LEDEZMA, Andrius Coty Attending Unavailable Junior LEDEZMA, Isabelarius Ansari Attending Unavailable Jermain Menchaca MD Primary Care Provider [phone] KIERAN GAINES Attending Unavailable JERMAIN MENCHACA Primary Care Unavailable JERMAIN MENCHACA Attending Unavailable JERMAIN MENCHACA Attending Unavailable LITA SILVESTRE Attending Unavailable LITA SILVESTRE Referring Unavailable CHATA JARVIS Attending Unavailable JERMAIN MENCHACA Attending Unavailable CHATA JARVIS Attending Unavailable LITA [...] mouth every six hours as needed HYDROcodone-acetaminophen ([place]) 5-325 MG tablet Take 1 tablet by mouth every 6 (six) hours if needed 11/06/2023 Active ascorbic acid 226 mg / beta carotene 09481 unt / cuprous oxide 0.8 mg / dl-alpha tocopheryl acetate 200 unt / zinc oxide 34.8 mg oral capsule (1 source) Vitamin C take 1 capsule by mouth in the morning vitamins A,C,D-ajse-dwtngx (ICAPS AREDS) [phone] utcy-cn-msaz capsule Take 1 capsule by mouth in [...] ITRUS ORAL Take by mouth daily. Active ferrous sulfate 325 mg oral tablet (2 sources) take 1 tablet by mouth once daily Ferrous Sulfate (iron) 325 (65 Fe) MG tablet Take 65 mg by mouth Daily Active finasteride 5 mg oral tablet (20 [...] Start: 07-03-2023 take 1 tablet by quinn at mealtime meloxicam (Mobic) 15 MG tablet [...] on package instructions 21 tablet 12/19/2023 Active naproxen 375 mg oral tablet (2 sources) Nonsteroidal Anti-inflammatory Drug Start: 11-06-2024 End: 11-19-2024 take 1 tablet by mouth in the morning naproxen (Naprosyn) 375 MG tablet Take 375 mg by mouth in the morning and 375 mg in the evening. Take with meals. 11/06/2024 11/19/2024 Active Nutritional Supplements (PROSTA JENSIE PO) (20 sources) Nutritional Supplements (PROSTA JENISE PO) Take by mouth 2 (two) times a day. Active tamsulosin hydrochloride 0.4 mg oral capsule (20 sources) alpha-Adrenergic Andria Start: 10-28-2024 take 1 capsule by mouth once daily [...] Active traMADol hydrochloride 50 mg oral tablet (13 sources) Opioid Agonist take 1 tablet by [...] b y mouth in the morning. 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; Translations: [Embolism and thrombosis of unspecified artery] Onset: 10-30-2023 Resolved: 01-09-2024 10-30-2023 Chronic Blindness and vision [...] ] Onset: 12-09-2021 Episodic Hyperplasia of prostate (5 sources) Benign prostatic hyperplasia; Translations: [Benign prostatic [...] joint] Onset: 10-04-2022 10-04-2022 Chronic Other fractures (8 sources) Fracture of multiple [...] right upper limb] Onset: 10-04-2022 10-04-2022 Chronic Other nervous system disorders (4 sources) Left-sided piriformis syndrome; 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, left lower limb] Onset: 11-19-2024 11-19-2024 Chronic Other non-traumatic joint disorders (6 sources) Hip pain; Translations: [Pain in left hip] Onset: 11-06-2024 11-19-2024 Episodic Spondylosis; intervertebral disc disorders; other back problems (20 sources) Degeneration of lumbar intervertebral disc; Translations: [Degenerative disc disease, lumbar] Onset: 10-04-2022 10-04-2022 Chronic Sprains and strains (1 source) Strain of muscle, fascia and tendon of left hip, initial encounter; Translations: [Strain of muscle, fascia and tendon of left hip, initial encounter] Onset: 11-06-2024 Episodic Thyroid disorders (20 sources) Hypothyroidism; Translations: [Hypothyroidism, unspecified] Onset: 12-09-2021 10-04-2022 Chronic Transient cerebral ischemia (20 sources) 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; Translations: [Transient cerebral ischemic attack, unspecified] Onset: 06-01-2023 08-21-2023 Chronic Past or Other Problems Problem Classification Problem Date Documented Da te Episodic/Chronic Acute and unspecified renal failure (1 source) Acute renal failure syndrome; Translations: [Acute kidney failure, unspecified] Onset: 12-09-2021 12-09-2021 Episodic Blindness and vision defects (1 source) Visual disturbance; Translations: [Unspecified visual disturbance] Onset: 06-02-2023 06-02-2023 Episodic Fluid and electrolyte disorders (1 source) Hyponatremia; Translations: [Hypo-osmolality and hyponatremia] Onset: 12-08-2021 12-09-2021 Episodic Malaise and fatigue (1 source) Asthenia; [...] Episodic Other diseases of kidney and ureters (5 sources) Disorder of urinary tract; Translations: [Other [...] 10-04-2022 10-04-2022 Episodic Phlebitis; thrombophlebitis and thromboembolism (10 sources) History of thromboembolism of vein; Translations: [...] disc disorders; other back problems (20 sources) Spinal stenosis of lumbar region; Translations: [Spinal stenosis, lumbar region without neurogenic claudication] Onset: 12-01-2021 10-04-2022 Episodic Results Test Name Value Interpretation Reference Range Facility XR HIP LT 2-3 VIEWS W OR WO PELVISon 11-06-2024 XR HIP LT 2-3 VIEWS W OR WO PELVIS XR HIP LT 2-3 VIEWS W OR WO PELVIS HISTORY AND/OR TECH NOTES Chronic left hip pain PROCEDURE X-ray left hip and bony pelvis COMPARISON November 05 FINDINGS No fracture seen No dislocation seen There are chronic fracture deformities and irregularity at the right greater than left pubic bones and pubic symphysis Moderate to severe degenerative change at the hips with some bone hypertrophic change Significant vascular calcification Degenerative changes in the lumbar spine Pelvic phleboliths If continued pain and more detailed imaging needed, consider follow-up MRI IMPRESSION: No acute findings. Finalized by Jamari Ken MD on 11/06/2024 9:33 AM Normal [facility] CBC (INCLUDES DIFF/PLT)on Basophils (Bld) [#/Vol] 0.039 10*3/uL Normal 0-200 [facility] Comment on above: Performed By: #### 1 7482, 0284 #### [facility] [address] [place] [phone] Dumpster Operator: Naya Guerra #### 7600 #### [facility] [address], [address] [place] [phone] Dumpster Operator: Iron Nicole MD Basophils/100 WBC (Bld) 0.8 % Normal [facility] Comment on above: Performed By: #### 1 3051, 8928 #### [facility] [address] [place] [phone] Dumpster Operator: Naya Guerra #### 7600 #### [facility] [address], [address] [place] [address] Dumpster Operator: Iron Nicole MD Eosinophils (Bld) [#/Vol] 0.23 10*3/uL Normal 15-500 [facility] Comment on above: Performed By: #### 1 0231, 6399 #### [facility] [facility] [address] [place] [address] Dumpster Operator: Naya Guerra #### 7600 #### [facility] [address], [address] [place] [address] Dumpster Operator: Iron Nicole MD Eosinophils/100 WBC (Bld) 4.7 % Normal [facility] Comment on above: Performed By: #### 1 0231, 6399 #### [facility] [address] Dumpster Operator: Naya Guerra #### 7600 #### [facility] [place] [address] Dumpster Operator: Iron Nicole MD Erythrocyte distribution width (RBC) [Ratio] 12.8 % Normal 11.0-15.0 [facility] Comment on above: Performed By: #### 1 0231, 6399 #### [facility] [address] Dumpster Operator: Naya Guerra #### 7600 #### [facility] [place] [address] Dumpster Operator: Iron Nicole MD Hematocrit (Bld) [Volume fraction] 40.0 % Normal 38.5-50.0 [facility] Comment on above: Performed By: #### 1 0231, 6399 #### [facility] [facility] [address] [place] [address] Dumpster Operator: Naya Guerra #### 7600 #### [facility] [address], [address] [place] [address] Dumpster Operator: Iron Nicole MD Hemoglobin (Bld) [Mass/Vol] 13.1 g/dL Low 13.2-17.1 [facility] Comment on above: Performed By: #### 1 0231, 6399 #### [facility] [facility] [address] [place], [place] [id number] Dumpster Operator: Naya Guerra #### 7600 #### [facility] [address], [address] [place] [address] Dumpster Operator: Iron Nicole MD Lymphocytes (Bld) [#/Vol] 1.715 10*3/uL Normal 850-3900 [facility] Comment on above: Performed By: #### 1 0231, 6399 #### [facility] [address] Dumpster Operator: Naya Guerra #### 7600 #### [facility] [place] [address] Dumpster Operator: Iron Nicole MD Lymphocytes/100 WBC (Bld) 35.0 % Normal [facility] Comment on above: Performed By: #### 1 0231, 6399 #### [facility] [facility] [address] [place] [address] Dumpster Operator: Naya Guerra #### 7600 #### [facility] [place] [address] Dumpster Operator: Iron Nicole MD MCH (RBC) [Entitic mass] 31.7 pg Normal 27.0-33.0 [facility] Comment on above: Performed By: #### 1 0231, 6399 #### [facility] [facility] [address] [place], [place] [address] Dumpster Operator: Naya Guerra #### 7600 #### [facility] [place] [address] Dumpster Operator: Iron Nicole MD MCHC (RBC) [Mass/Vol] 32.8 [...] By: #### 1 230, 6399 #### [facility]-[address] Dumpster Operator: Naya Guerra #### 7600 #### [facility] [address], [address] [place] [address] Dumpster Operator: Iron Nicole MD MCV (RBC) [Entitic vol] 96.9 fL Normal 80.0-100.0 [facility] Comment on above: Performed By: #### 1 230, 6399 #### [facility] Dumpster Operator: Naya Guerra #### 7600 #### [facility] [address], [address] [place] [address] Dumpster Operator: Iron Nicole MD Monocytes (Bld) [#/Vol] 0.627 10*3/uL Normal 200-950 [facility] Comment on above: Performed By: #### 1 230, 6399 #### [facility] Dumpster Operator: Naya Guerra #### 7600 #### [facility] [address], [address] [place] [address] Dumpster Operator: Iron Nicole MD Monocytes/100 WBC (Bld) 12.8 % Normal [facility] Comment on above: Performed By: #### 1 230, 6399 #### [facility] [address] [place] [address] Dumpster Operator: Naya Guerra #### 7600 #### [facility] [address], [address] [place] [address] Dumpster Operator: Iron Nicole MD Neutrophils (Bld) [#/Vol] 2.288 10*3/uL Normal 0787-2564 [facility] Comment on above: Performed By: #### 1 230, 6399 #### [facility] [address] [place] [phone] Dumpster Operator: Naya Guerra #### 7600 #### [facility] [address], [address] [place] [address] Dumpster Operator: Iron Nicole MD Neutrophils/100 WBC (Bld) 46.7 % Normal [facility] Comment on above: Performed By: #### 1 023, 6399 #### [facility] [address] [place] [phone] Dumpster Operator: Naya Guerra #### 7600 #### [facility] [place] [address] Dumpster Operator: Iron Nicole MD Platelet mean volume (Bld) [Entitic vol] 8.2 fL Normal 7.5-12.5 [facility] Comment on above: Performed By: #### 1 230, 6399 #### [facility] [facility] [address] [place] [address] Dumpster Operator: Naya Guerra #### 7600 #### [facility] [place] [address] Dumpster Operator: Iron Nicole MD Platelets (Bld) [#/Vol] 215 10*3/uL Normal 140-400 [facility] Comment on above: Performed By: #### 1 230, 6399 #### [facility] [address] [place] [address] Dumpster Operator: Naya Guerra #### 7600 #### [facility] [address], [address] [place] [address] Dumpster Operator: Iron Nicole MD RBC (Bld) [#/Vol] 4.13 10*6/uL Low 4.20-5.80 [facility] Comment on above: Performed By: #### 1 023, 6399 #### [facility] [address] [place] [address] Dumpster Operator: Naya Guerra #### 7600 #### [facility] [address], [address] [place] [address] Dumpster Operator: Iron Nicole MD WBC (Bld) [#/Vol] 4.9 10*3/uL Normal 3.8-10.8 [facility] Comment on above: Performed By: #### 1 230, 6399 #### [facility] [address] [place], [place] [id number] Dumpster Operator: Naya Guerra #### 7600 #### [facility] [address], [address] [place] [address] Dumpster Operator: Iron Nicole MD [facility] 10-31-2024 Albumin [Mass/Vol] 4.3 g/dL Normal 3.6-5.1 [facility] Comment on above: Performed By: #### 1 230, 6399 #### [facility] [address] [place] [address] Dumpster Operator: Naya Guerra #### 7600 #### [facility] [place] [address] Dumpster Operator: Iron Nicole MD Albumin/Globulin [Mass ratio] 1.9 {ratio} Normal 1.0-2.5 [facility] Comment on above: Performed By: #### 1 230, 6399 #### [facility] [address] [place], [place] [address] Dumpster Operator: Naya Guerra #### 7600 #### [facility] [address], [address] [place] [address] Dumpster Operator: Iron Nicole MD ALP [Catalytic activity/Vol] 52 U/L Normal 35-144 [facility] Comment on above: Performed By: #### 1 023, 6399 #### [facility] [address] [place], [place] [phone] Dumpster Operator: Naya Guerra #### 7600 #### [facility] [place] [address] [place] , [address] [place] [address] Dumpster Operator: Iron Nicole MD ALT [Catalytic activity/Vol] 17 U/L Normal 9-46 [facility] Comment on above: Performed By: #### 1 0231, 6399 #### [facility] [address] [place], [place] [address] Dumpster Operator: Naya Guerra #### 7600 #### [facility] [place] [address] [place] , [address] [place] [address] Dumpster Operator: Iron Nicole MD AST [Catalytic activity/Vol] 24 U/L Normal 10-35 [facility] Comment on above: Performed By: #### 1 023, 6399 #### [facility] [address] [place], [place] [address] Dumpster Operator: Naya Guerra #### 7600 #### [facility] [address], [address] [place] [address] Dumpster Operator: Iron Nicole MD Bilirubin [Mass/Vol] 0.6 mg/dL Normal 0.2-1.2 [facility] Comment on above: Performed By: #### 1 0231, 6399 #### [facility] [address] [place], [place] [address] Dumpster Operator: Naya Guerra #### 7600 #### [facility] of [address], [address] [place] [address] Dumpster Operator: Iron Nicole MD BUN/CREATININE RATIO SEE NOTE: Normal 6-22 [facility] Comment on above: Result Comment: Not Reported: BUN and Creatinine are within reference range. Performed By: #### 1 0231, 6399 #### [facility] [address] [place], [place] [address] Dumpster Operator: Naya Guerra #### 7600 #### [facility] [address], [address] [place] [address] Dumpster Operator: Iron Nicole MD Calcium [Mass/Vol] 9.2 mg/dL Normal 8.6-10.3 [facility] Comment on above: Performed By: #### 1 0231, 6399 #### [facility] [address] [place] [address] Dumpster Operator: Naya Guerra #### 7600 #### [facility] [address], [address] [place] [address] Dumpster Operator: Iron Nicole MD Chloride [Moles/Vol] 100 mmol/L Normal 98-110 [facility] Comment on above: Performed By: #### 1 0231, 6399 #### [facility] [address] Dumpster Operator: Naya Guerra #### 7600 #### [facility] [address], [address] [place] [address] Dumpster Operator: Iron Nicole MD CO2 [Moles/Vol] 29 mmol/L Normal 20-32 [facility] Comment on above: Performed By: #### 1 0231, 6399 #### [facility] [address] Dumpster Operator: Naya Guerra #### 7600 #### [facility] [address], [address] [place] [address] Dumpster Operator: Iron Nicole MD Creatinine [Mass/Vol] 1.17 mg/dL Normal 0.70-1.22 [facility] Comment on above: Performed By: #### 1 0231, 6399 #### [facility] [address] [place] [address] Dumpster Operator: Naya Guerra #### 7600 #### [facility] [address], [address] [place] [address] Dumpster Operator: Iron Nicole MD GFR/1.73 sq M.predicted among non-blacks MDRD (S/P/Bld) [Vol rate/Area] 60 mL/min/{1.73_m2} Normal > OR = 60 [facility] Comment on above: Performed By: #### 1 0231, 6399 #### [place] [address] Dumpster Operator: Naya Guerra #### 7600 #### [facility] [address], [address] [place] [address] Dumpster Operator: Iron Nicole MD Globulin (S) [Mass/Vol] 2.3 g/dL Normal 1.9-3.7 [facility] Comment on above: Performed By: #### 1 0231, 6399 #### [facility] [address] [place] [address] Dumpster Operator: Naya Guerra #### 7600 #### [facility] [address], [address] [place] [address] Dumpster Operator: Iron Nicole MD Glucose [Mass/Vol] 97 mg/dL Normal 65-99 [facility] Comment on above: Result Comment: Fasting reference interval Performed By: #### 1 0231, 6399 #### [place] [address] Dumpster Operator: Naya Guerra #### 7600 #### [facility] [address], [address] [place] [address] Dumpster Operator: Iron Nicole MD Potassium [Moles/Vol] 4.9 mmol/L Normal 3.5-5.3 [facility] Comment on above: Performed By: #### 1 0231, 6399 #### [facility] [address] [place], [place] [address] Dumpster Operator: Naya Guerra #### 7600 #### [facility] [address], [address] [place] [address] Dumpster Operator: Iron Nicole MD Protein [Mass/Vol] 6.6 g/dL Normal 6.1-8.1 [facility] Comment on above: Performed By: #### 1 0231, 6399 #### [facility] [address] [place] [address] Dumpster Operator: Naya Guerra #### 7600 #### [facility] [address], [address] [place] [address] Dumpster Operator: Iron Nicole MD Sodium [Moles/Vol] 135 mmol/L Normal 135-146 [facility] Comment on above: Performed By: #### 1 0231, 6399 #### [facility] [address] [place], [place] [address] Dumpster Operator: Naya Guerra #### 7600 #### [facility] [address], [address] [place] [address] Dumpster Operator: Iron Nicole MD Urea nitrogen [Mass/Vol] 21 mg/dL Normal 7-25 [facility] Comment on above: Performed By: #### 1 230, 6399 #### [facility] [address] [place] [address] Dumpster Operator: Naya Guerra #### 7600 #### [facility] [address], [address] [place] [address] Dumpster Operator: Iron Nicole MD LIPID PANEL, [facility] 10-21 Cholesterol [Mass/Vol] 158 mg/dL Normal <200 [facility] Comment on above: Order Comment: FASTI NG:YES FASTING: YES Performed By: #### 1 0231, 6399 #### [facility] [address] [place], [place] [address] Dumpster Operator: Naya Guerra #### 7600 #### [facility] [address], [address] [place] [address] Dumpster Operator: Iron Nicole MD Cholesterol in HDL [Mass/Vol] 45 mg/dL Normal > OR = 40 [facility] Comment on above: Order Comment: FASTI NG:YES FASTING: YES Performed By: #### 1 0231, 6399 #### [facility] [address] [place] [address] Dumpster Operator: Naya Guerra #### 7600 #### [facility] [address], [address] [place], [place] [phone] Dumpster Operator: Iron Nicole MD Cholesterol in LDL [Mass/Vol] [...] equation in the estimation of LDL-C. Jaycob SHEPPARD et al. SUSAN. 2013;310(19): 4692-0281 (http://education.Little Big Things/faq/QET108) Performed By: #### 1 0231, 6399 #### [facility] [address] [place] [phone] Dumpster Operator: Naya Guerra #### 7600 #### [facility] [address], [address] [place], [place] [phone] Dumpster Operator: Iron Nicole MD Cholesterol.total/C holesterol in HDL [Mass ratio] 3.5 {ratio} Normal <5.0 [facility] Comment on above: Order Comment: FASTI NG:YES FASTING: YES Performed By: #### 1 0231, 6399 #### [facility] [address] [place] [address] Dumpster Operator: Naya Guerra #### 7600 #### [facility] [address], [address] [place], [place] [phone] Dumpster Operator: Iron Nicole MD NON HDL CHOLESTEROL 113 mg/dL (calc) Normal <130 [facility] Comment on above: Order Comment: FASTI NG:YES FASTING: YES Result Comment: For patients with diabetes plus 1 major ASCVD risk factor, treating to a non-HDL-C goal of <100 mg/dL (LDL-C of <70 mg/dL) is considered a therapeutic option. Performed By: #### 1 0231, 6399 #### [facility] [address] [place] [address] Dumpster Operator: Naya Guerra #### 7600 #### [facility] [address] [facility], [address] [place] [address] Dumpster Operator: Irno Nicole MD Triglyceride [Mass/Vol] 99 mg/dL Normal <150 [facility] Comment on above: Order Comment: FASTI NG:YES FASTING: YES Performed By: #### 1 0231, 6399 #### [facility] [address] [place] [address] Dumpster Operator: Naya Guerra #### 7600 #### [facility] [address] [place] [address], [address] [place] [address] Dumpster Operator: Iron Nicole MD XR Pelvis 1 or 2 [facility] Result: 01/16/2024 AP pelvis demonstrate well healing healing right pubic rami fracture and healing left acetabulum fracture in acceptable alignment with increased callus formation. No signs of displacement. Impression: Healing right pubic rami and left acetabulum fracture. Lita ST [employer] [facility] Radiology Study observation (narrative) [employer] XR Pelvis 1 or 2 [facility] Result: 12/19/2023 AP pelvis demonstrate healing right pubic rami fracture and healing left acetabulum fracture in acceptable alignment with increased callus formation. No definitive union of right pubic rami fracture. No signs of displacement. Impression: Healing right pubic rami and left acetabulum fracture. Lita Silvestre APRN-[employer] MECHANIC [employer] XR Pelvis 1 or 2 [employer] d By: Enrique Rutherford on 12-21-2023 [employer] Work Phone: XR Pelvis 1 or 2 [facility] Study observation (narrative) [employer] XR Pelvis 1 or 2 [facility] Result: 11/23/2023 AP pelvis demonstrated stable right pubic rami fracture and healing left acetabulum fracture in acceptable alignment. No signs of displacement Impression: Stable right pubic rami and left acetabulum fracture. Lita Silvestre FIBERGLASS LAMINATOR-[employer] MECHANIC [facility] XR Pelvis 1 or 2 ViewsOrdere d By: Enrique Rutherford on 11-24-2023 [facility] [employer] Work Phone: XR Pelvis 1 or 2 [facility] Study observation (narrative) [facility] Provider Orderson 07-28-2021 Provider Orders [id number] #[facility] 07-09-2021 Consent Forms [id number] #1.00[facility] MAGR Preoperative Recordon 0 07-02-2021 MAGR Preoperative Record MAGR Pre-Op Record Summary Primary Physician: Enrique Rutherford DO Finalized Date/Time: 07/02/21 15:05:59 Pt. Name: ENRIQUE MIKE D.O.B./Sex: 1935 MALE Med Rec #: [id number] Physician: Enrique Rutherford DO Financial #: [id number] Pt. Type: O Room/Bed: [facility] Admit/Disch: 06/21/21 05:54:00 - 06/22/21 12:10:00 [...] Signed By: Isabela Soliman RN 07/02/21 15:05 [facility] Coding Summaryon 06-28-2021 Coding Summary HTMLBase 64 ZiflspoxVVo2tYb+PGhl YWQ+JW4THMFhH10stDSb lD7SQ4eSCD5YMUGBZNQI VW8ETH3gcEZ6ZMfnX7Bw biAv MsueaFRyYC56PEw8FKL8 rEshYBcmvT0afMTwM8j1 HkIxNJ06zU22RFicMLNb IjA4EwXawwonbKTo I0gpEmChbHStCdm+PHRh YmxlIHdpZHRoPScxMDAl PfCiaQncZE0dYo4fOKGm LWNvbGxhcHNlOiBj y5fcEVAeWTjnEY4boTxm A5FsbOQ5ZZFbj4v7Mj63 dHI+IFRtBQW3tBkfTIft s617IbRzm5gsFYJ5 eXZzJIsuPFO1K75vf2S8 NJUdIFGtGDS8wNN6kT4k wUskmkcaT6FylGDtAuQ1 JAK2ySDdbD9ytJii mlgubT1uRun+W21SBP3A DPPYQL8DGne0F5UlOxrn dHI+FL77GXYbXP27gHJz wXVcl4odeHu1TiNh YPQtYMK4rGreGOfda0Rx COXpR12voYUgt7K3URNb eJoueGWeRlBzdII0pX2n IFlljlvrq3tezvrx Amxda5wctq23mR34F69w RQzbXUQcFUT2MVMfFIVh pOwxws4jtN2rGv9+IDxj h1aek3pscUk9ReMy MITkjwWpgAilRXX0s5Gh Nn82N9TezZpbv2WvQac3 ia69uDFvm9V7pYD7FCqd HBYewN4xBGfgOdW7 NVNaLlZxfR78aMUvBSji Uv9mlBmcyCdgJT3iSEFs bvanBBNyxR8cYECdmUUm oIkgVN9dXHAvzbti u035UcHiXSH2IDDjwUHw Z8UhzC1gRwQtIYLzNEXg J3GogAMgHKopP860UFcm GnS5QICrjeDeD8Pi ZVWiqCxiIiK5e3S7Oc6I o3BlrjqyGIE1NLpeCNT7 SoC5AyDbHoI6T9YmIwu2 GDVfxWakZQ8oG9Ht HJKmqxjwgfsfeFM7HGMo FSNdwI29vNHdPAscGl1z h0H2q871OIGkBCTceH85 Ib5yyTcqJVPvaLHF hH8uwfkof1ynzyjhBeKf CBCoXTk9DHd6JOPwxGfd YbMeTHT2McD7LVA5vWOk bY3sbOvhxyvmzW2n Oyc+A84tzC6cCBX0PVY2 gipzWWSjynFuSB47SD72 W7SsShsztBNxsAC+PGRp xhPqdHiiXR1wGsAd e0pil7ZsEOrhZ9QiLELe LPgzDru0SMCiBXC4lKY1 sV5hGTOcVYemr0H5mIZ8 S4NykbWwkf7au0xf GZFsDByjB26bySMsz3O7 RCZepZD4PTTupYyfYdUg nS20Wcq+XPJdgPizr3As Skmjz2rbf1rmoDh7 IjMwJSIgdmFsaWduPSJ0 x2LgXj35Q25lFPedZPSr QEJxDPPgUYIlhWatuq1d lO3qUv3+PGNvbCB3 yUQ9zM3zRGYuXaP3HByt D927ZgHyxRFcBgopl9bw o0gvsZx1ImNoODVnygEc jBipGLD9z1PyBc63 S55yUEsuVBEnNVZtCRUd HTCctIurka2pwB0vLf9+ UK7xk4tobo66iO75sBI+ DUHaQUQ2sYdaTSqn XXEkiC0wCLqaWoF3TUKb FqFdtG60vFCoJYixYs3l sBetcEehCG7oDPQtvafe b595VuCis4iuLZTd lSGlKQrzZPL2K93ub3R0 JUEpZAQrGBM1oKY0tS2t bGlnbjogbGVmdDsgdmVy gXwdRCjjHTqeV008 IHRvcDsnPlBhdGllbnQg ObAlDVf8L4WaDmy0FWUd rEzkLX7kqJRkTCwcCv3q zApfbHjrQW5oWSRj fsruk547OyRkh0kgHSZs mATpONlkAZG0H06rt2T5 HJMyTDIlADF9iER4iS7t bGlnbjogbGVmdDsg yqVgxZncBIhjYLsdV667 IHRvcDsnPkJpcnRoIERh aGJ5SO96PT49qUBho7S6 pVP4Y4MxPJMkcuxl ftovtYP1RPDyZNAwoG28 Mc8eyIcqHz7xSXYiHMU4 NXTcyQGjT6LyfL4fAhHb JTSsMUXzI0SceLBl SUgwM713GMmeEjM9UVDn nhCiR6TjBVBxqWkbNjD5 r8W0Sb8WA9R3QC84WF35 bTHvn1X0dOK7K5Pp HAFglznsqmrwlPR9XIFv NDXfdV02Sy1ivHozMa6h ITLpROV1IKUpxNSnR1Sy cC3zZpHvFAKgOFUn S1AspXJlMKtbD738KCgr VhH5EXVccnNjS0SpGUBq sIyyEfA0g1B7Yt7TEGh1 MA99WD10tQDeu2Y1 aNN2O5VtCRRjudxrysea bWF4TYGxYPJadK93Nw5o hJkoVn4iDQOsYNN3KXVt hFBlN3PniQ2wUqWg LZZhZRKjP1EgxQKnYVto Z649ETriYsI6AEShjdMe L1OxTERheCwyEeR1j6V5 Bb8IAVSmBM71DFF5 fKP7AO98PO78Y0LgMmnu dGFibGU+PHRhYmxlIHdp ZHRoPScxMDAlJyBzdHls MO8aNn5kMMUqOSKh aLlhlLCoFgRjq9tgBPQu OOafPV5osBfzF5AetLH6 THVmt2n9Ri78L03zY2Xd dXA+LYPumMS0ePY1 kS4fJtHlYiJ0FEvrJ712 HpEdvTQiZzsit0afg3sv lDb2BhE3GWQateNpfByh OPR5j9QxXk99H21r IHdpZHRoPSIxNSUiIHZh gWynfc2txP9zMw5+PGNv sTN3cHR3sT2sCpMwQeN6 RPncB028DxIbdUQe Cykkv3wyj0mehXp0QlJt BLNcspDooSwvAXB5c1Do Kb32T9NqmPyme6HlNxc5 xq02oUUux3R6qKD6 L5XrROTumzdyqMEuwNwc RN0fSRTficlzGEZjaG9z XRTqE7i9PkNhGaP0FGbr J9NnqhJ3UGBrsGQw BCnlADW3D59ls3G8NDNi VTJyWPM7rSF5gG4vwJae bjogbGVmdDsgdmVydGlj FYwcUHtzL014BEIc cZsoKZVktJ2oSPKiiWSd dTyeUN4mFSRmfkuzMkVP ZaQeBNkHWPMFCNW9L7Qg Ruu4MGVocMdqIA5k kSXtNNwiZk4yrVmcgQhy DW6zAAOynovcBQRzkP5d FCBpcNOirCdkVI9zPPPb twbsj599YrDvKAV7 KXZxbDHeK6AejB5sZbTv PWMyZOEmK3ZqkUIxYJzf A415LMsdRnU9WDZkneCk S1MaLLCpbJdmLrQ5 l3V6Mf6tOd9lEI7wDHL9 FP74VT06xPKzj8M9oVS6 U1ZrCLSmyjmtwkdlhNL8 YZPbJCFtnG45pIJz NHasKk0rk7X8o119DCCa CCRnlF11Tt1kuBcpXLTl wUGXeN5knuwaa2upbkgj LsGvQKMzFQg3AHf4 OZMmbYjiCcIsSQF2WbC3 QLH2cMHlvS9lzUfgkosa xD6cOdr+ODQgWWVhcnM8 N5AdYan5OFPytTfz MT8rgZErRZmcGr6hvGwp yBbtQU1wKDFoapyoJIOh tD4aHCNyzZWmdPkxKS5p UNSscoyrl978SfJj FOX8OJRtrRAgL7SheC4s AsVwLRSiGALeR9EfaEEx EYvlY865CDgzGkX5EYTt uuEpA9YfEZKwbBjl BlH2a7F3Ay4GETkDKB54 MH99qDBrl2X6mFN5C3Gi ZBDmfiuufenqdRT7SJVa DSTuqJ64jVHsCGnq Pe6gi9K3o596YRYwGBWf rO92Oo9qyOcgSYZzwFDG zT1nvewwu0qeanasFvYc GHJwXXd2ESq8JMFc eGcoMwSoGYF1SiN3YGG1 zAOwdW9mgLhhkwmduI5p Oyc+H4XhJJA2IBBoe183 P5OzEoeosYM+PC90 RRDgNE25vWSwpRErt5hn yHb8AbGmENHaWWD9bTog DHhct9WvWQJyL92zvEIh v4Z1IJFwyOpdrMCx BuFseNM8eB3iYSnryssc b2ccfsgsMwdqf1zjdx18 nQ75G94yIXfyNLVpEPNx NXHfZAUskNpikk9r lY2hVn8+IHAkqAO0fHS1 qE3rPeXvXfE9ODxxJ470 OsLtoJEjXfrbp6ngl6ic yWa6HsEbGHWznjDi aSldRSQ8g1NkCg72H72q IHdpZHRoPSIyMCUiIHZh kJeyfj4pjV4sAm5+PC9j d3tdtk32mV57lHT+ MJPlFRV7gRgoTTtdJCLj zU8uIUoxDoU5IOXlZwQz lJ91rVJcQQakWw2onRvb nBmzTJ8eZXZsttli h646DeMpj0qbLXKfcPVb MVdqWCY2G14fr7J3SXAv JRHpDLU3kXC6nD9jkTdj bjogbGVmdDsgdmVy qXosTRmlWWnmY702HHDi mPipOkZexCHtG0kvqoTT CF6tYrjvgTX+PHRkIHN0 qNuqLJphTUKrhV7o LKXfZ9z4PjDyNxA3NIyk Q1QjzxC6HZLzgUWsQLRg xCQMdZ3lpfaek9cjgces ZgXpZJTwOOy0ZYf1 ZXNnzXhrGqGbSYE2WjO8 PXF2cWKhsM8isTibnwio oM4lUkp+RklOOjwvdGQ+ RYUuICP5rIaqUKih ENYuoI7cGQMhM3u5HzBi HfC5QXrdI1WyhcJ8NFEf gRAmVJQkxYJGyK0gcnmc b7mjyhvbZrViAXEb THq9XHy8XVKiwBioUqNr HTH7YvG9DHC1hSLudC2n bVwbdzisbG2nNnc+TVJO OjwvdGQ+PHRkIHN0 qCgyVDiuSKJojE4wXPSv O3o8YhTjIvX1ODtwQ2Py fdT4PUJvxTVyJKYnrFQS oR6ctkwxi3nudhsv NuVaBFEhKVr7TQy6TPDt oAkwLhKrOOQ3ClJ8XWV2 qIVxjW3bqJnfcqqmeX1n Oyc+SCM0XVK0TV33 PT02Q5XwWndkaNRdtRO+ PHRhYmxlIHdpZHRoPScx YSOrJgMloSdrCQ6yOp0c ZGVyLWNvbGxhcHNl OiB (more content not included)... [facility] Consent Formson 06-23-2021 Consent Forms [id number] [facility] Discharge Instructions [id number] [facility] Tele[facility] Stripson Telemetry Strips [id number] [facility] Consultation/Specialist Note on 06-22-2021 Consultation/Specia list [...] on: 06/22/2021 07:09 EDT] BIB [facility] Normal [facility] Inpatient Patient Summaryon 06-22-2021 [place] [address] Patient Discharge Instructions Name: MIKEENRIQUE : 1935 Patient Address: [address] [place] [address] Primary Care Provider: Name: JERMAIN MENCHACA MD After you are discharged if you find you have any questions, please, call [phone] ext [phone] to speak to a nurse. Discharge Diagnosis: [...] alcohol and/or drug addiction problems; contact the [facility] 12/09 Crisis Hotline -Text 4HYEX lt [phone]. If you received any narcotics, sedation, or [...] or sign any legal documents [facility] would like to thank you for allowing us to assist you with your healthcare needs. The following includes patient education materials and information regarding your injury/illness. ENRIQUE MIKE has been given the following list of follow-up instructions, prescriptions, and patient education materials: Follow-up Instructions With: Address: When: Enrique Rutherford [address] [place] [address], [address] [place] [id number] [facility] (1) 06/29/2021 10:45 AM Medications During the [...] Medication mariana (more content not included)... [facility] Summary Primary Physician: Enrique Rutherford DO Finalized Date/Time: 06/22/21 07:37:50 Pt. Name: ENRIQUE MIKE/Sex: 1935 MALE Med Rec #: [id number] Physician: Enrique Rutherford DO Financial #: [id number] Pt. Type: O Room/Bed: [facility]/1 Admit/Disch: 06/21/21 05:54:00 - Institution: Phase II [...] Signed By: Karla Moss RN 06/22/21 07:37 [facility] Progress Note - Nurseon 05-0 Progress Note - Nurse Pt discharged to home. Taken to awaiting car via wheelchair. Belongings sent with pt. [Electronically Signed on: 10/06/2021 14:53 EDT] Emily Kennedy RN [Verified on: 10/06/2021 14:53 EDT] Emily Kennedy RN [facility] Progress Note - Nurse Surgical dressing [...] on: 10/06/2021 14:53 EDT] Emily Kennedy RN [facility] Progress Note - Nurse Shoulder block wearing off. Pt able to move his wrist and forearm. unable to wiggle fingers but tactile sensation intact. Circ checks WDL. Pain level 4/10. 5mg Oxycodone given. [Electronically Signed on: 10/06/2021 14:53 EDT] Emily Kennedy RN [Verified on: 10/06/2021 14:53 EDT] Emily Kennedy RN [facility] Anesthesia Noteon 06-21-2021 Anesthesia Note Patient: [...] on: 06/21/2021 11:47 EDT] Rod Ann DO [facility] Anesthesia Note Patient: ENRIQUE MIKE Age: [...] = 50 mL, 100 mL/hr, IV Piggyback, Distribution Systems Serviceperson LR 1,000 mL: 20 mL/hr, IV Lidocaine 1% injectable solution: 0.1 mL, ID, Once, PRN: Other (see comment) tranexamic acid: 1,000 mg = 100 mL, 300 mL/hr, IV Piggyback, Distribution Systems Serviceperson tranexamic acid: 1,000 mg = 100 mL, 300 mL/hr, IV Piggyback, Distribution Systems Serviceperson Documented Medications Documented Aspir-Low 81 mg oral [...] (basal cell carcinoma), face / SNOMED CT 4233915133 / Confirmed Hypertension / SNOMED CT 2553488954 / Confirmed, Active Problems (2) BCC (basal cell carcinoma), face Hypertension Histories Family History: Entire family history is negative. 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 Back fusion (615427898). Chest tube insertion ([id number] [employer] [facility] [employer]). Comments: 06/04/2021 9:17 EDT - Elvi Barber RN left lung 1998 Inguinal hernia ([id number]). Rotator cuff (49983330). Hammer toe (092358047). Social History Electronic Cigarette/Vaping Assessment Electronic Cigarette [...] / Management Results review ECG interpretation Plan [employer]#(A SA) physical status classification: Class II. Anesthetic Preoperative [...] on: 06/21/2021 07:57 EDT] Rod Ann DO [facility] MAGR Intraoperative Recordon 06-21-2021 MAGR Intraoperative Record MAGR Intra-Op Record Summary Primary Physician: Enrique Rutherford DO Finalized Date/Time: 06/21/21 09:51:01 Pt. Name: ENRIQUE MIKE/Sex: 1935 MALE Med Rec #: [id number] Physician: Enrique Rutherford DO Financial #: [id number] Pt. Type: D Room/Bed: [facility]/1 Admit/Disch: 06/21/21 05:54:00 - Institution: Case Times MAGR Entry 1 Patient In Room Time 06/21/21 07:28:00 Out Room Time 06/21/21 09:43:00 Anesthesia Start Time 06/21/21 07:28:00 Stop Time 06/21/21 09:45:00 Surgery Start Time 06/21/21 08:06:00 Stop Time 06/21/21 09:37:00 Last Modified By: Brenda Constantino RN 06/21/21 09:50:58 Case Attendance MAGR Entry 1 Entry 2 Entry 3 Case Attendee Enrique Rutherford Jacquelyn RN [place] DIE ASSEMBLER/MARCIAAEliel CST Role Performed Surgeon - Primary Dance Critic Flexible Machining System Machinist Time In 06/21/21 07:28:00 06/21/21 07:28:00 06/21/21 07:28:00 Time Out 06/21/21 09:16:00 06/21/21 09:43:00 06/21/21 09:16:00 Procedure Arthroplasty Shoulder Arthroplasty Shoulder Arthroplasty Shoulder Total Reverse(Left) Total Reverse(Left) Total Reverse(Left) Last Modified By: Brenda Constantino RN, Jacquelyn RN Burns, Jacquelyn RN 06/21/21 09:43:07 06/21/21 09:43:07 06/21/21 09:43:07 Entry 4 Entry 5 Entry 6 Case Attendee Vivian Newman CSFA Yolis Sanchez CSFA DIE ASSEMBLER Rod Ann DO DIE ASSEMBLER Role Performed Flexible Machining System Machinist Scrub Personnel Anesthesiologist of Record Time In 06/21/21 07:28:00 06/21/21 07:28:00 06/21/21 07:28:00 Time Out 06/21/21 09:43:00 06/21/21 09:43:00 06/21/21 09:43:00 Procedure Arthroplasty Shoulder Arthroplasty Shoulder Arthroplasty Shoulder Total Reverse(Left) Total Reverse(Left) Total Reverse(Left) Last Modified By: Brenda Constantino RN, Jacquelyn RN Burns, Jacquelyn RN 06/21/21 09:43:07 06/21/21 09:43:07 06/21/21 09:43:07 General Comments: ARTHREX REP: KOBY GARCIA AND LEILANI SARA Surgical Procedures MAGR Pre-Care Text: A.20 Verifies operative procedure, surgical site, and laterality Im.150 Develops individualized plan of care Entry 1 Procedure Arthroplasty Shoulder Primary Procedure Yes Total Reverse Primary Surgeon Enriqeu Rutherford Modifiers Left Eliel DO Surgeon Comment [...] Entry 1 Ski (more content not included)... [facility] MAGR Intraoperative Record MAGR Intra-Op Record Summary Primary Physician: Finalized Date/Time: 06/21/21 07:33:10 Pt. Name: ENRIQUE MIKE/Sex: 1935 MALE Med Rec #: [id number] Physician: Enrique Rutherford DO Financial #: [id number] Pt. Type: D Room/Bed: / Admit/Disch: 06/21/21 [...] Klaehn, Margaret RN Role Performed Anesthesiologist of Dance Critic Dance Critic Record Time In 06/21/21 07:09:00 06/21/21 07:09:00 [...] Flow Ra (more content not included)... [facility] PACU Record Summary Primary Physician: Enrique Rutherford DO Finalized Date/Time: 06/21/21 10:37:04 Pt. Name: ENRIQUE MIKE/Sex: 1935 MALE Med Rec #: [id number] Physician: Enrique Rutherford DO Financial #: [id number] Pt. Type: D Room/Bed: [facility]/ Admit/Disch: 06/21/21 05:54:00 - Institution: PACU Case Times MAGR Entry 1 In PACU I 06/21/21 09:43:00 Discharge from PACU 06/21/21 10:28:00 I Last Modified By: Isabela Soliman RN 06/21/21 10:36:28 General Comments: Pt awake and oriented. VS stable. Transferred to room 221 via bed. Finalized By: Isabela Soliman RN Document Signatures Signed By: Isabela Soliman RN 06/21/21 10:37 [facility] Nutrition Noteon 06-21-2021 Nutrition Note Pt admitted for scheduled Lt shoulder surgery. Diet already advanced to a Regular, ate 100% of lunch, No wt hx available, denied any wt changes on cheese blender assessment. 06/04 pre-op labs reviewed, mildly elevated BUN noted. Pt at high nutrition risk r/t age greater than 65yr, however, no foreseeable nutrition concerns at this time. To follow. [facility] Operative Report - Surgeon/P catalina 06-21-2021 [...] on: 06/21/2021 10:15 EDT] Enrique Rutherford DO [facility] Patient Handouton 06-21-[address] [...] or concerns, please call the office at [phone] -Follow up as scheduled [facility] Progress Note - Nurseon Progress Note [...] on: 06/21/2021 14:30 EDT] Phyllis Kasper RN [facility] XR Shoulder 1 View Lefton XR Shoulder 1 View Left EXAM: XR Shoulder 1 View Left HISTORY: Status post Shoulder Replacement COMPARISON: None. TECHNIQUE: Single view FINDINGS: Normal alignment and unremarkable early postoperative appearance left shoulder arthroplasty. IMPRESSION: As above. Final Dictated by: Eliel Garvey V Dictated DT/TM: 06/21/21 4:52 Signed (Electronic Signature): Eliel Garvey V 06/21/21 4:54 pm Technologist: MARIELY BENITEZ [facility] Comment on above: Order Comment: barbara cabrera status post shoulder replacement Coding Summaryon 06-18-2021 Coding Summary HTMLBase 64 NhwhrbifJHu0cCi+PGhl YWQ+UZ8WGBIaE89qxKZo yV7CA5fSUO2OGQYOLAQS MX6BMS1gmBU9VKzsB6Xl biAv VbjigUBiCH98QIc8HSQ0 zInxMQhrpV1srJVqA4j1 VhFcXW84xT58DRuiCVLr SsD0RoLqtxvvoLEe W2gkPbBtlHUwFzy+PHRh YmxlIHdpZHRoPScxMDAl KlGxoMfpTE2qZs8lUFSb LWNvbGxhcHNlOiBj w7ctVZOzFHjcMV8utOjl J5ZyrYB2UMObq1p7Mb98 dHI+UPFlEWR4iRaxOTtk s103YaWss1idPEO1 xAWsHQftVGR2M36wp5E8 SZMoFJIhVCS1hJR3vJ4t iQswcczjN3OdmLZeEcT5 HEW7jYCyaR9tdIxy rzlknO7bEms+D88FWK2E PQDKWB4UCdm8F9LtEgji dHI+IP41OPToYU06rKEx eGNel5qfwOf4MnYk AGUaUCD5fEjdUUxzg7He YDKeN07ksLJfn2N0UXSd jYnpsNRyOrDjpLE6wN1c ZIyoavqqm5mgdfyy Ktghw5zrns37yA74H53f YZylSTUwLLB4YWKcIBNj cYtkkd5tpI1zHe4+IDxj p3czy8yrsHx2VcCb IGXafgEtfIkeTMJ1e0Za Zz30W5DacCljg8AqXoj2 ty31gCNtj0K0cQQ7FZqg RVVouN1cOOpyZsX9 ZPLjSfIrfW47yYInCDjs Ll7hdCvyxLraKD5aYGOe vqggEJJyrN0pUNIslVCu cNglMI6pVFJyosqe z972TjGeWDW2ICMntIQi U4UxwF7oWyUbYEWgEIIq I2WtoGErEFgaC479QLbr BtF1JXTlflGwW3Nd QQVuyRyvQnW7z0H9Hy7I t5UzixgzSSR4FQmsQJU0 PiN8LlBzEyN5Q7KmRni7 ITRvoRvtNW2tM4Mu XZAdjylyweslrKU3VJRq FCXtyU28bAHoERrrMc1g o8K8y345UROuGMVxqJ07 Tl1yxVtfOMZclGPQ xV0hjvmgl6lgfdsyBoYc LGPoEUf9KBf5CFHepKya RwPaWKV5OaF3RQK9gTNd pH9rjKqcibpozP3h Oyc+O34tbS9oPFR6CDA9 ncjjNGXvswRuZA96KH47 Z6BtFxscnYDreCV+PGRp mjIjhLmkZK6tQxNs h2qez2GyBIxfS5WrUUEe KSyvPwh4ESEoZBM9gVX8 sU1xNOKeLMowv3X3fCT8 B3JfmlYtsp7mt7pc YXKlZFwqC03veRYve8K5 HDAknIN7RCTyyDpzWfZd zU03Jtz+XGUmqHdzr9Ip Pbilh5muz4vbqQq2 IjMwJSIgdmFsaWduPSJ0 g6ZcZk84S45rCJweLFFu UVSqJMNmOITndMbwum2z cF4qAv1+PGNvbCB3 rHN1fM0hLLRpKdW6WLqn R496UoFzpMLzCzbwo6ge w0jjpHo8NjVnPCCtiqMh fKgoPFX2d8MtSw43 A42bEGdaQJTnNMOpYFWp GNUqzZjjfb3fjK7bDn4+ CW4za5qkty14rE48fXB+ HLGdXXM8uGwgCQcp ADQyvI4pTBlaHlM3AGDa YkMudI41eRGlBBxqXm2z pLvyyHvlRX0rTVAydcvq d464WxAuq5nsFLNk iBUwIKvmOZJ8Y60aa2R4 XUZtNNQwOXJ7fDH2vF0o bGlnbjogbGVmdDsgdmVy vBwuSScjRPytH552 IHRvcDsnPlBhdGllbnQg NrSuAEo2H1DnQao1LVFb yDorDB8rcOXpLVdfDe8q kMmsjBltUZ4mRMQw veiff329PgLdx2tbHCMz lUQvZSysUYM0D08ca6K7 OGEuBTGwSPQ7uGI7lJ2p bGlnbjogbGVmdDsg ciQguWmwRVjrDNmwR499 IHRvcDsnPkJpcnRoIERh iFT0KQ44GP35pDQpi4E5 xDO2M6QjNRAretae vplycKC8CZXsWNWsqB66 Ej2keKyjHy5kJNQnWAW2 KOSwwRZqP4MvnN4nCxDx HEZjUQViO0OsyCNm WMycA775BNetQjU6WSSe uwTaX8QzVFWxfFsyRiK0 k2G9Ls4LI0G5BY58WX09 xVTbo0M1xPB8H2Uc OJKgsqqrzsywjED9NQZj NYLlmA52Ak9ebGthPp0t HSJbBUY4VUMzgKTkW4Fk zJ0vJgQcDKNxVBXp U8DklNEzCLbgB101GFaq OhY5AHXuqoHvO1ZzYCPc wBklArA1y1A4Ge9WIAl8 BA72OP03zUJwx9F0 oVE5B2KhFUPztjfakfpj zKW6UTVlNXOiyU63Ih7a oOjsPt7jGSJzHNQ9DJOb hUYdC4HdlZ5qWuNq OUPoVYElY3XpgREsDNvw J022UKzaQrT9TJPmdbVn R6EfKRHrfSbcGkN9u7M8 Za1QDJWrRF02GGG6 oLT4DM69WR98V5ImIjvr dGFibGU+PHRhYmxlIHdp ZHRoPScxMDAlJyBzdHls EM8eAk8vNCZoQXEe gNipdHKnAdLtj2gqNCOo YJluVG6xjLbyM7QxjSR7 GZUsf8t5Xi01N89aY9Pm dXA+LJVytCG1uYT7 aY1dEgQuAdI7MOzfY070 BgHjgCTvKtllg7ezw1gz kRd7VtQ2BYNvppPnbCek HHT0h0IiIl47T70v IHdpZHRoPSIxNSUiIHZh bVxyyj5haX9lFz3+PGNv oQY9rXC2kE9lKrFwEdO7 KDtvJ986VeXiqJRl Khewe5uok0nfvCt8XcBf UFFsxcQobCxbVXO4r8Bh Cl46I4QokNllq6OdPfh3 nb95pUSzs9G1xHX4 Z2WoRLJjidoprKEbkPxr ZA8fGEMkbiioRFMyiD0w TMDzF3g6OiOmPbK5CFvw D7ArvsM3OWXasYGb IHcrPUQ1L41po1K5UOHc BUKeBUM1hHI4zY0uxOxc bjogbGVmdDsgdmVydGlj EZyeCIgeX859GXXy vHteRSJboJ2cZRFsyARc oTjeKZ5cLJXkkrbbYtCE HxStJJpZHBZUPQT7U7Zi Tqe9XWUbgSfsZU2y gQGsNSosMq2qlYgbhWuf UD7uDASycghyOAUaqK8m LEQbcVZbgSvqCC3cUYXf edjtv061XqYaTOF8 CDRexOBzG0PloD5jTpDw XPRnLTGpY7XgrFLgYFcw L072DIqxUyN2HRKbhePb E0LbDOEbjFsuUpR7 c5H5Xr3tRr0fPQ2eMEP5 ON35DF83kMHvz9Z2wJO1 Y2YlRDMkqkkcmojdhKY7 KDReLLVezI27fADl QHrjKu4tx2L4t468WYPc TOOxwK00Zm2huAtpHTRo gBAJqD6cdydbd8zoaxyk BdRyKYEmTFb1DGl7 ETNgwZoqJiAyEWV8GkH2 LXQ9uNOgiF2jvCfhoyor qA4wQgz+ODQgWWVhcnM8 X1KfImh0TZDhhJno LK7xwPUiTJhsSw5pfTkw xOtbUC1rBXOpdjfcVEZj oG3hCEVpcGPhfDtdYO5e WONqaptpe872AkKa HXO3XYLajKRsB8RboK8w PtAjFBXfFIOhH6UwpJFv JDusZ983SYstFaQ4KKVp zlGsA4VeZYGqvAqi CfB2d9D5Kb2BQAdJYD18 CE91lKNxo7G9ySV3D9Hc CJWfxgnqrujmwBK8DMJn EIZqcP80aSBnTXrx Nw2fo0E6c446FPOjPPMz eY35Nn7hcDekOLSkdGRZ nA9mephoy0gbqyqoYcKl WTRpQOz7BZa9YEZs aKqwVuRyGBD3OyK7HML2 tURhwZ7wyUuhqjreoI9z Oyc+W2X8H2RbSqstuHF+ PV03AHMsAB27uODm yADtu4qqyQh3FtNuTBKo RMJ7nHijBRfpj6LyOSId F29pnFUjw1Y7GJPoxIeq oJHwJfZdwIU8xY3r OEyemmkfr5zeglcqOlhv z8vtmu53aN75A50bCUbm ZHRoPSIzMCUiIHZhbGln rg3drZ0bIu4+PGNv gQK4nFF6jK6vXoKjQrV0 BYblA130QmUayXHpCsvk e3ipo3iylRr9ShDjOZIa vaHjfBrlZBN3p7Qg Wf04K03wIKsqJEGwYTIm PKZeJTPmgBxcnk4iqC7h Ii8+KT3ad4eukb03wW57 dHI+LOMwNJN0eQdk URnhYWQwyT1rENnaSnG8 PZUxImTdmC13dNDiUUre Zd4laCdfiLbnWA7pSLFz szant144OeTke3dp GOOclIIxPNvpAZX9K42d u9V1SNXwZKVeJXX6hEJ9 eG5kzNbmtodwdWAqfXyr dmVydGljYWwtYWxp A994MZDocFknVjCdwIJz Q0cednJHZQ6wOkrtmUU+ AORkAHX5uLqjQQyqCJJc iC5aEOYjA0l4LaDx DeE6NYzlD8IhzfI9UESy iGDnGTMobQMPfP7qzvgk j0aieblvYnPpFUCxTDi2 JQn7PJXdaJelWtTw ZNU7BjT7LSN9zQFwvQ4o cWsyojygcG9kDio+RklO OjwvdGQ+MIRdCNB1iBmo DNvdGTXvxJ6tKDUe N6c2UdAaOeD3AOodO0Py tjF2HXBnoQWdEPEfcIBT vF1aavxfl0shxsttInAv DZFfJPk5BLs6KTZc iWsdJxEoKBS2AbU6TMC0 oOLakI8wrShbxcaspP8u Oyc+TVJOOjwvdGQ+PHRk DLM5iAlyOKujBRJp bA2iTWWpT7m3KpJyPxR8 BTqvX3DavvB9SAKfiCBs EEYxiGINwK2psjxur0sr cjogIzAwMDAwMDt0 KWm9MBGqhKhfUxHwOWD5 RpT6QTH4aTDzxJ8anTjz daqtaH8kSig+YIP1HAY9 QL75XE27R1SvMwal dGFibGU+PHRhYmxlIHdp ZHRoPScxMDAlJyBzdHls CX3aJn6yKVEuEOMjlYjt uMJrYpTpg3biFIHb ZTs (more content not included)... [facility] Progress Note - Nurseon 05-22 Progress Note - Nurse Pre-op call done, instructed to arrive @ 0600 on 06-21-21, NPO after midnight-verbalized understanding. [Electronically Signed on: 06/18/2021 09:26 EDT] Ayah Gracia RN [Verified on: 06/18/2021 09:26 EDT] Ayah Gracia RN [facility] 2018 Novel Coronavirus (CoVI D-19), BART LCon 06-17-2021 SARS-CoV-2 (COVID-19) RNA BART+probe Ql (Unsp spec) Not detected Invalid Interpretation Code Not Detected [facility] Comment on above: Order Comment: [id number] Result Comment: This nucleic acid amplification test was developed and its performance characteristics determined by [employer]. Nucleic acid amplification tests include RT- PCR [...] detected) result in this assay. Performed At: [facility] [address] [place], [place] [id number] Suzanne Durham PhD Ph:[phone] Performed By: #### [id number] #### [facility] (DEFAULT) [address] [place] [address] Advance Directive Documentso n 06-07-2021 Advance Directive Documents [id number] [facility] Coding Summaryon 06-07-2021 Coding Summary HTMLBase 64 UzxxpodxNHp7eKp+PGhl YWQ+VQ0IKBPtU76kmHIv sK1RO9mVCO7AYFKYRAMI WS7EJY8rzKU3KUmmC4Ab biAv CgpjpJUuIX92FXu3XQW7 bJdcBEgfiN4jeTGsZ9k4 JwThDB93kO06GTfbWIHj LgN5EpOpiakyoYWf R7ciQtXwtFCfPam+PHRh YmxlIHdpZHRoPScxMDAl NlUtlSwyIC1qOc1tPOIc LWNvbGxhcHNlOiBj d4pgCQPxXXgyQE4vpYea R4TxtZG1SJQbc2z6Kx12 dHI+QSRwXJB5hWcwUPkc j060BlLrx0fdLPP7 dHAsMYqhOSG2O03nu2D8 ZIUkNFSdOYA2aHP5bM3a xXkpebzgJ8QwyYKaEgN4 PRC9kKLqcS5ooFcb qlkdyP8hNts+N94YTF1D NDYAHJ5SUjk1D0WyQftg dHI+ZC31AXScTX76bPUc gXNqb4isbEh1EmKd MFXwEWD4nFxlOZlym4Mr LFAqS23mvODau0K6CCAh vAidzGSiTePdhSE0hL4x WYnayxleu7dqwrhj Luano2zysq05cA70V21u UVucPKTrCVH3FFWhHCXr oSxvoz1qsG8cPe4+IDxj h9mzb7ilaEj0WbOi AYYiaiWdcCpzQKV4w4Tf Ms22Q5FzmQwnn8WzZkp9 rf40gEYfg4Y7iDE5PRqj KWMqhU1aLKlsMzZ7 QLBcJtWpaI56nXJxCUwl Wk9vgHrwgVqxMC1tRNJq dvtyPJVsdP5mOOMelFQx bGkwLO2eLYGepbnu k078RvVyDEO5CWDjhCRw K0IloI7bUwKsKKWqBKDa E6PjwIXqOHebN363WZez XdU4WBIzvcMvZ1Qa KCKgvDneVhC4w3X3Bg7H b4ArnkorYNT7JAjwGOX3 XcD4RpYyBfA3K3BxKxm9 JMFkmMdbIZ1tZ6Xc RWMryyuxtgtwcTO5SKDp CZVicT37uXZmSYyvXw1i f8I6a034OIGtAMTvtT75 Lh6egMlcNLIrvJTA qS4mkjbzh8ordaznAnRy JODtJYu9ZWa7HOYodCyc JpGbCBN8IeS0DFA7oGMp rO9aoUrunypfgQ7w Oyc+X38nrL3lDIU9YUJ2 pkpzRGSzuoKzIF72BV32 W6MxLkuajGHitSD+PGRp uzJkpRrxFA4tPjHf m7kkl6IeENeoT8ScRCNg IIztMmz2VJPsCYF1tGD6 jD4sTFSiKOwgg7O4dNH3 S1MfgrFrty3ij5nb YZBnRBybM84ynRFaz6E9 WDMwuTL9WFVegXvwNfDg sF01Tyj+CWRxrIglm3Da Xtxzs0yiq1vunCe2 IjMwJSIgdmFsaWduPSJ0 e7KeJl72P13gOGifJFMo PTCgDVHxKBBflSoloq8n eB2oMt6+PGNvbCB3 lTV9nM4fWICuXzP6WIda R059DtKtuJTcAober3sk v2rhhKb5RlJgOUObmzCk aGtsONN2b2MeRn58 L14dBImbLNDgWYVgYSMb MOHrtUodcd5wfC0hQt4+ EW6bx3humj20iW41cRV+ PHCyIKR1dEfgDVkl TPFcwY8cGJygNdF3BLAh XxToaN18bXKoIGznXw3p kOwrgGdeWL1bTWGavipb t252OgZfy6igTVVe jDGhZYdoAYN5N40vi8O3 UXGeFNIcZJB9cKD8nF6f bGlnbjogbGVmdDsgdmVy qIyiJDeaVFokU309 IHRvcDsnPlBhdGllbnQg GzNcXKg1K6PyDea6OIKm oZioBD2niURcPIjgHf7t oEhnnDweBX5uLNGj drrlw488KeWtz1eeWOOp lSClORncNQZ5N85fm4F6 FTBfZRXcSKF0cPS8qS5l bGlnbjogbGVmdDsg isIdgKecJQybTCpcJ791 IHRvcDsnPkJpcnRoIERh qFO3NR25TM66uYWrf2F4 sDS7M0TuYBYeaopk dytmnNV3HIPjZQTfxR19 Rd6ekSnvZe2sUFUvWIG6 PGTeiTAiV6SlbV9hOwOb GVEqFKAcV4MbyCNg YZekE603LLftOvV6HMXz rfMpZ5NwNZFiqBsdIgP9 u7V4Fh7NE3Y4XC73AE02 yGHbx0E7xWZ5L7Sn BGRwxvaqhewfxLR7PNEq AYVxoV95Bz4ceGhyDm1w YJYfTJU3NBEhwCSqV1Ga wX9wJnGfVSOuCIAq L1AajJXtKKjcC369PBho FcB4LCYwmrOqL5IhIODh tBrcLkE3f3E2Mm2JBCa6 VZ89AH40cYPyz3D2 eJO8A4DmIYXfomghmjiu nOD6HQDkHZPjcL25Ux7k iOpxFg2qPIVoHQE1MYVu iLWtD8OxyW6cDvAm HOBlVUGdZ0PsrMZcUFkl A548LOstOiY6ECZllcKe G9GyAHFesWbgBpL9o5O0 Zr9ZPGZfSH70ENY3 zKU3WW39BL92S4WqZujs dGFibGU+PHRhYmxlIHdp ZHRoPScxMDAlJyBzdHls WA9oKp7tKJNkUPQh pBjvaTUpCyJeb8anXJWn YGhzXP4zrSndF0JqgCI4 UHEgf3a9Hn71H98hB2Mg dXA+OBHcwLQ7hBF2 oF4sIdKuMbJ7TTyqS166 EaEqjEQtTkutt3yik4sa vTo2WoB3VFQnqcEutPye ABA7d7CePg34N55z IHdpZHRoPSIxNSUiIHZh hSekvf7hjX1fCd2+PGNv sYT9zQM6oA9wXjEvGaR9 PYtrQ581CjZaxOWw Qeksk5anu7ueiIu7ZyJp OLDmetMlpLrpIBU8f9Oj Cp78C7TmwZqqo4YxFxk2 bv01aVKtv3U3sBK7 U9ZeNPGzjkfzrFMzdVpc IH0kRWNdqeheNAXzcF9t MDAhY9p4ZjCvQbP0SMva P8YhonL2XAFwyCAh OCvgAME8U50af7L6OZYy RUBcHAN5xNQ6tJ3rtHvo bjogbGVmdDsgdmVydGlj IFfaIJjtK790LCVn wFoaNAVycE6vXGYdvSHj pCmmHD7vMCHfnzuhWjDF UmQmJQuICWBMPGX3B3Fr Pch9PDHymGawLG8y wAXfQThqQo9rxBkedSgj RO2oTXGjuhdoCCZudW5k ZFTjsRTtuCifEU9rRFRv fsxks603CgStWAO2 GJXlrZOpG7IdbK1cQhLt VZOzLZOeN6ElqYEmWCyp U924TOfcYnE1ADGfyoGm V4EeOKJnjCavHkC7 k6A0Vu5bIr9tRJ0qVJC0 XW65OB92yFZro6F6sXW6 D2PyKOOnakrridpmlYM0 OBFmCBCrdA30oDDh LPvdRr8lp8D0h222XVEd BBEcvX20Lb4trMuuSHIb tAKKmC6feuvnd6ynrgzf YcUlFBMdSFc7VMb2 KWNrtMrnJnRlFPI2YxT1 UCO6yLLmqO8zgDidwizl mA0pNvt+ODQgWWVhcnM8 S9YrHyg5CJTwoJzi QF2jiQUoIMcjCx2ogQnk pAgqRN4nZYZtlnctONSm zF7hSBVaxSJmaIjqKB2x IPRssuixp289VgNl RPN8SHTlkBWnT1KrkJ0z CxZeMAMuHQWxN8OfoXPx LCskX364YXouHrO2TYAa cdIlT4HzVEQiyInq MhL5b1H5Qk9KQFgDCC97 WU71eHNjm2D5lVB8X2Ox SDHvgmonsrbroZK2SXMp HCNcqH94lGXhJPya Fx8pb8N6p342GAZnZPHd uK23Pt4jdDuoQLQdrASC aW1erxfqz3brcszkUrMc ICWzSBc8FJn6SWFv mNbwSyMfRWM6YcO4NQQ1 oBZriM2wuRpkjwbpzT3h Oyc+L6P0G5JnUodolUL+ JB36NRBhXA11bVVq qRBso5bhlYp1TkHdOBQi VWD5ySysGOxep7TiZLDp E27bmXOzc9Z2SGQwbWcd kBCwTtGxgEG7aB8n VRiqxaryt2rhzepwWldh n0argl49bO12V48lQWgb ZHRoPSIzMCUiIHZhbGln td9aqO4zPb6+PGNv sTI4rWN0jU9fMxHfVmI2 HZxrQ957AbCtvIEsNnsl w3knc5lwgEm9IxSdLPFo jlEljDztNPF6c8Em Oy44I78iIRpjQRYqSHCk AOMjEBFaiMikme3asA4n Ii8+SE5wg2kesd93cU51 dHI+MKUaIVP2mDff AAkmOGFwgR8iUIqjFwG6 WIYmHjLbbB17zASgCKam La8hvIcycFyeKB0aBLAh lngjp469BoOqq1fy XADwnZIoINliUQC8M58e h9G5KBXxZPMcRXF7tLO4 qL9xfLnyrlycqKTwmPve dmVydGljYWwtYWxp B687HQPxvVoeCjRydVPf C9mhhwEGGK6pXgtpeJX+ AKHzGUL1vXnjZFzfNWFn xU1mNVXaI7g2DtGn JxV5NSymJ4TpucY2YUMa mCCtKLWedWXJjX8jlotx d1wbemcfMjHsYHXbUVg8 SMu2WMOeyAtkWaOh MPG2ZlS8XPM1kQRncK5h sJimxfzdkE5oVng+RklO OjwvdGQ+BEZkJVR1jMme DAphPGWyrH9kNSNd Q4o8HoCbDpM3JYxoA7Xf eqJ8XGTisKDcUKAsqGPT mO5rcmrel2gbtpvlRvTx JBXxBDo5APg8JVQu eZpoGqJmDSV1JjW5YPI4 dLSkyL9uyUppubrrdX1x Oyc+TVJOOjwvdGQ+PHRk RJU6uKmjAMixKEVa xW1wBXAdK6m1DeOkDuR3 WYubM5ErkrR0LJEstKOt KGPzlTJIqN2kpqwey5wu cjogIzAwMDAwMDt0 IBw3NCWquQsrYbBiRIZ8 TuZ0YOM9lEJhkB6rvGsv euwqmE5yRys+FYY1AXB5 BG59TW06I3HlGtkc dGFibGU+PHRhYmxlIHdp ZHRoPScxMDAlJyBzdHls JK0oEy3fWUCnCDLesTbf eHPrMaLui8udBNSo ZTs (more content not included)... [facility] Progress Note - Nurseon 05-21 Progress Note - Nurse Chart reviewed by Dr. Garcia and no new orders received. [Electronically Signed on: 06/07/2021 15:13 EDT] Isabela Soliman RN [Verified on: 06/07/2021 15:13 EDT] Isabela Soliman RN [facility] Provider Orderson 06-07-2021 Provider Orders [id number] #[id number] [facility] C MRSA Screenon 06-05-2021 C MRSA Screen Negative [facility] Comment on above: Performed By: #### 1 [id number] ####[facility] (DEFAULT)[address] [place] [address] .Auto Diff 1on 06-04-2021 Auto Adair % 13 % High 03-03 [facility] Comment on above: Performed By: #### 1 [id number] ####[facility] (DEFAULT)[address] [place] [address] 82574 Baso Abs# 0.0 x10 Normal 0.0-0.2 [facility] Comment on above: Performed By: #### 1 [id number], [id number], [id number] ####[facility] (DEFAULT)[address] [place] [address] 18405 Basophils/100 WBC (Bld) 0.8 % Normal 0.2-2.0 [facility] Comment on above: Performed By: #### 1 [id number], [id number], [id number] ####[facility] (DEFAULT)[address] [place] [address] 40862 Eos Abs# 0.1 x10 Normal 0.0-0.4 [facility] Comment on above: Performed By: #### 1 [id number], [id number], [id number] ####[facility] (DEFAULT)[address] [place] [address] 62549 Eosinophils/100 WBC (Bld) 2.3 % Normal 0.9-4.0 [facility] Comment on above: Performed By: #### 1 [id number], [id number], [id number] ####[facility] (DEFAULT)[address] [place] [address] 70546 Lymph Abs# 1.4 x10 Normal 1.3-2.9 [facility] Comment on above: Performed By: #### 1 [id number], [id number], [id number] ####[facility] (DEFAULT)[address] [place] [address] 06517 Lymphocytes/100 WBC (Bld) 28 % Normal 14-48 [facility] Comment on above: Performed By: #### 1 [id number], [id number], [id number] ####[facility] (DEFAULT)[address] [place] [address] 62002 Adair Abs# 0.6 x10 Normal 0.0-0.8 [facility] Comment on above: Performed By: #### 1 [id number], [id number], [id number] ####[facility] (DEFAULT)[address] [place] [address] 87094 Neut Abs# 2.7 x10 Normal 1.5-9.2 [facility] Comment on above: Performed By: #### 1 [id number], [id number], [id number] ####[facility] (DEFAULT)[address] [place] [address] 18434 Neutrophils/100 WBC (Bld) 55 % Normal 44-88 [facility] Comment on above: Performed By: #### 1 [id number], [id number], [id number] ####[facility] (DEFAULT)[address] [place] [id number] Standardon 06-04-2021 eGFR Non AA 58 mL/min/1.73m2 Invalid Interpretation Code [facility] Comment on above: Performed By: #### 1 [id number], [id number], [id number] ####[facility] (DEFAULT)[address] [place] [address] eGFR AA >60 Invalid Interpretation Code [facility] Comment on above: Result Comment: Lace Weaver martha Kidney disease could be indicated at eGFRs of less than 60 ml/min/1.73m2. Kidney Failure is indicated at less than 15 ml/min/1.73m2 Performed By: #### 1 [id number], [id number], [id number] ####[facility] (DEFAULT)[address] [place] [address] 00360 Anion gap [Moles/Vol] 18.0 mmol/L Normal 5.0-19.0 [facility] Comment on above: Performed By: #### 1 [id number], [id number], [id number] ####[facility] (DEFAULT)[address] [place] [address] 87827 Calcium [Mass/Vol] 9.8 mg/dL Normal 8.9-10.3 [facility] Comment on above: Performed By: #### 1 [id number], [id number], [id number] ####[facility] (DEFAULT)[address] [place] [address] 79357 Chloride [Moles/Vol] 96 mmol/L Low 101-111 [facility] Comment on above: Performed By: #### 1 [id number], [id number], [id number] ####[facility] (DEFAULT)[address] [place] [address] 73477 CO2 [Moles/Vol] 27 mmol/L Normal 21-32 [facility] Comment on above: Performed By: #### 1 [id number], [id number], [id number] ####[facility] (DEFAULT)[address] [place] [address] 79011 Creatinine [Mass/Vol] 1.19 mg/dL Normal 0.90-1.30 [facility] Comment on above: Performed By: #### 1 [id number], [id number], [id number] ####[facility] (DEFAULT)[address] [place] [address] 20979 Glucose [Mass/Vol] 93.0 mg/dL Normal 74.0-118.0 [facility] Comment on above: Performed By: #### 1 [id number], [id number], [id number] ####[facility] (DEFAULT)[address] [place] [address] 48253 Osmolality 277 mOsm/L Invalid Interpretation Code [facility] Comment on above: Performed By: #### 1 [id number], [id number], [id number] ####[facility] (DEFAULT)[address] [place] [address] 81115 Potassium [Moles/Vol] 4.5 mmol/L Normal 3.6-5.1 [facility] Comment on above: Performed By: #### 1 [id number], [id number], [id number] ####[facility] (DEFAULT)[address] [place] [address] 07738 Sodium [Moles/Vol] 136.0 mmol/L Normal 136.0-144.0 [facility] Comment on above: Performed By: #### 1 [id number], [id number], [id number] ####[facility] (DEFAULT)[address] [place] [address] 54796 Urea nitrogen [Mass/Vol] 27 mg/dL High 8-26 [facility] Comment on above: Performed By: #### 1 [id number], [id number], [id number] ####[facility] (DEFAULT)[address] [place] [address] 40349 Urea nitrogen/Creatinine [Mass ratio] 23.0 mg/mg High 4.6-16.2 [facility] Comment on above: Performed By: #### 1 [id number], [id number], [id number] ####[facility] (DEFAULT)[address] [place] [address] CBC w/ Auto Diffon 2 Erythrocyte distribution width (RBC) [Ratio] 12.4 % Normal 11.5-15.0 [facility] Comment on above: Performed By: #### 1 [id number], [id number], [id number] #### [facility] (DEFAULT) [address] [place] [address] Hematocrit (Bld) [Volume fraction] 45.9 % Normal 34.8-51.9 [facility] Comment on above: Performed By: #### 1 [id number], [id number], [id number] #### [facility] (DEFAULT) [address] [place] [address] 65815 Hemoglobin (Bld) [Mass/Vol] 14.8 g/dL Normal 11.8-17.7 [facility] Comment on above: Performed By: #### 1 [id number], [id number], [id number] #### [facility] (DEFAULT) [address] [place] [address] 20240 Instr WBC 4.8 x10 Invalid Interpretation Code [facility] Comment on above: Performed By: #### 1 [id number], [id number], [id number] #### [facility] (DEFAULT) [address] [place] [address] 46250 Man Diff? Auto Normal [facility] Comment on above: Performed By: #### 1 [id number], [id number], [id number] #### [facility] (DEFAULT) [address] [place] [address] 50207 MCH (RBC) [Entitic mass] 32 pg Normal 24-34 [facility] Comment on above: Performed By: #### 1 [id number], [id number], [id number] #### [facility] (DEFAULT) [address] [place] [address] 14694 MCHC (RBC) [Mass/Vol] 32 g/dL Normal 26-37 [facility] Comment on above: Performed By: #### 1 [id number], [id number], [id number] #### [facility] (DEFAULT) [address] [place] [address] MCV (RBC) [Entitic vol] 98 fL Normal 81-100 [facility] Comment on above: Performed By: #### 1 [id number], [id number], [id number] #### [facility] (DEFAULT) [address] [place] [address] Platelet 221 x10 Normal 138-427 [facility] Comment on above: Performed By: #### 1 [id number], [id number], [id number] #### [facility] (DEFAULT) [address] [place] [address] Platelet mean volume (Bld) [Entitic vol] 8.6 fL Normal 6.3-10.2 [facility] Comment on above: Performed By: #### 1 [id number], [id number], [id number] #### [facility] (DEFAULT) [address] [place] [address] RBC 4.68 x10 Normal 3.70-5.30 [facility] Comment on above: Performed By: #### 1 [id number], [id number], [id number] #### [facility] (DEFAULT) [address] [place] [address] WBC 4.8 x10 Normal 3.5-10.5 [facility] Comment on above: Performed By: #### 1 [id number], [id number], [id number] #### [facility] (DEFAULT) [address] [place] [address] UA w Culture if Ind Standard on 06-04-2021 Breakpoint UA Normal [facility] Comment on above: Performed By: #### 1 [id number] ####[facility] (DEFAULT)[address] [place] [address] 20310 Color (U) Yellow Normal [facility] Comment on above: Performed By: #### 1 [id number] ####[facility] (DEFAULT)[address] [place] [address] Culture? No Normal [facility] Comment on above: Performed By: #### 1 [id number] ####[facility] (DEFAULT)[address] [place] [address] 75057 Glucose (U) [Mass/Vol] Negative Normal [facility] Comment on above: Performed By: #### 1 [id number] ####[facility] (DEFAULT)[address] [place] [address] 03545 Ketones Ql (U) Negative [facility] Comment on above: Performed By: #### 1 [id number] ####[facility] (DEFAULT)[address] [place] [address] 89928 Micro? Not Indicated Normal [facility] Comment on above: Performed By: #### 1 [id number] ####[facility] (DEFAULT)[address] [place] [address] 91161 UA Bilirubin Negative Normal [facility] Comment on above: Performed By: #### 1 [id number] ####[facility] (DEFAULT)[address] [place] [address] 07592 UA Blood Negative Normal NEGATIVE [facility] Comment on above: Performed By: #### 1 [id number] ####[facility] (DEFAULT)[address] [place] [address] 61620 UA Clarity CLEAR Normal CLEAR [facility] Comment on above: Performed By: #### 1 [id number] ####[facility] (DEFAULT)[address] [place] [address] 96385 UA Leuk Est Negative Normal NEGATIVE [facility] Comment on above: Performed By: #### 1 [id number] ####[facility] (DEFAULT)[address] [place] [address] 99929 UA Nitrite Negative Normal NEGATIVE [facility] Comment on above: Performed By: #### 1 [id number] ####[facility] (DEFAULT)[address] [place] [address] 90779 UA pH 6.0 Normal 5-8 [facility] Comment on above: Performed By: #### 1 [id number] ####[facility] (DEFAULT)[address] [place] [address] 07342 UA Protein Negative Normal NEGATIVE [facility] Comment on above: Performed By: #### 1 [id number] ####[facility] (DEFAULT)[address] [place] [address] 84634 UA Spec Grav 1.020 Normal 1.001-1.035 [facility] Comment on above: Performed By: #### 1 [id number] ####[facility] (DEFAULT)[address] [place] [address] 96116 UA Urobilinogen 0.2 mg/dL Normal 0.2-1.0 [facility] Comment on above: Performed By: #### 1 [id number] ####[facility] (DEFAULT)[address] [place] [address] 00960 Urine Source Clean Catch Normal [facility] Comment on above: Performed By: #### 1 [id number] ####[facility] (DEFAULT)[address] [place] [address] 35322 Vital Signs Date Time Vital Sign Value Performing Clinician Faci lity 11-19-2024 09:30-0400 Body height 175.3 cm Jermain Menchaca MD Work Phone: [facility] 11-19-2024 09:30-0400 Body mass index (BMI) [Ratio] 24.81 kg/m2 Jermain Menchaca MD Work Phone: [facility] 11-19-2024 09:30-0400 Body weight 76.2 kg Jermain Menchaca MD Work Phone: [facility] 11-19-2024 09:30-0400 Diastolic blood pressure 84 mm[Hg] Jermain Menchaca MD Work Phone: [facility] 11-19-2024 09:30-0400 Heart rate 68 /min Jermain Menchaca MD Work Phone: [facility] 11-19-2024 09:30-0400 SaO2% (BldA) [Mass fraction] 98 % Jermain Menchaca MD Work Phone: [facility] 11-19-2024 09:30-0400 Systolic blood pressure 134 mm[Hg] Jermain Menchaca MD Work Phone: [facility] 10-28-2024 09:29-0400 Body height 175.3 cm Jermain Menchaca MD Work Phone: [facility] 10-28-2024 09:29-0400 Body mass index (BMI) [Ratio] 24.81 kg/m2 Jermani Menchaca MD Work Phone: [facility] 10-28-2024 09:29-0400 Body weight 76.2 kg Jermain Menchaca MD Work Phone: [facility] 10-28-2024 09:29-0400 Diastolic blood pressure 82 mm[Hg] Jermain Menchaca MD Work Phone: [facility] 10-28-2024 09:29-0400 Heart rate 79 /min Jermain Menchaca MD Work Phone: [facility] 10-28-2024 09:29-0400 SaO2% (BldA) [Mass fraction] 95 % Jermain Menchaca MD Work Phone: [facility] 10-28-2024 09:29-0400 Systolic blood pressure 132 mm[Hg] Jermain Menchaca MD Work Phone: [facility] 01-09-2024 08:28-0500 Body height 175.3 cm Chata Jarvis PA Work Phone: [facility] 01-09-2024 08:28-0500 Body mass index (BMI) [Ratio] 24.04 kg/m2 Chata Salazarmer PA Work Phone: [facility] 01-09-2024 08:28-0500 Body weight 73.85 kg Chata Hemmer PA Work Phone: [facility] 01-09-2024 08:28-0500 Diastolic blood pressure 72 mm[Hg] Chata Hemmer PA Work Phone: [facility] 01-09-2024 08:28-0500 Heart rate 104 /min Chata Hemmer PA Work Phone: [facility] 01-09-2024 08:28-0500 Respiratory rate 16 /min Chata Hemmer PA Work Phone: [facility] 01-09-2024 08:28-0500 SaO2% (BldA) [Mass fraction] 92 % Chata Hemmer PA Work Phone: [facility] 01-09-2024 08:28-0500 Systolic blood pressure 100 mm[Hg] Chata Hemmer PA Work Phone: [facility] 12-26-2023 08:30-0500 Body height 175.3 cm Chata Hemmer PA Work Phone: [facility] 12-26-2023 08:30-0500 Body mass index (BMI) [Ratio] 24.54 kg/m2 Chata Hemmer PA Work Phone: [facility] 12-26-2023 08:30-0500 Body weight 75.39 kg Chata Hemmer PA Work Phone: [facility] 12-26-2023 08:30-0500 Diastolic blood pressure 68 mm[Hg] Chata Hemmer PA Work Phone: [facility] 12-26-2023 08:30-0500 Heart rate 68 /min Chata Hemmer PA Work Phone: [facility] 12-26-2023 08:30-0500 Respiratory rate 16 /min Chata Hemmer PA Work Phone: [facility] 12-26-2023 08:30-0500 SaO2% (BldA) [Mass fraction] 91 % Chata Hemmer PA Work Phone: [facility] 12-26-2023 08:30-0500 Systolic blood pressure 122 mm[Hg] Chata Hemmer PA Work Phone: [facility] 10-30-2023 13:50-0400 Body height 175.3 cm Jermain Menchaca MD Work Phone: [facility] 10-30-2023 13:50-0400 Body mass index (BMI) [Ratio] 24.96 kg/m2 Jermain Menchaca MD Work Phone: [facility] 10-30-2023 13:50-0400 Body weight 76.66 kg Jermain Menchaca MD Work Phone: [facility] 10-30-2023 13:50-0400 Diastolic blood pressure 82 mm[Hg] Jermain Menchaca MD Work Phone: [facility] 10-30-2023 13:50-0400 Heart rate 74 /min Jermain Menchaca MD Work Phone: [facility] 10-30-2023 13:50-0400 SaO2% (BldA) [Mass fraction] 97 % Jermain Menchaca MD Work Phone: [facility] 10-30-2023 13:50-0400 Systolic blood pressure 138 mm[Hg] Jermain Menchaca MD Work Phone: [facility] Healthcare Encounters Encounter Date Encounter Type Care Provider Facility Start: 11-19-2024 End: 11-19-2024 Office outpatient visit 25 minutes Jermain Menchaca MD Work Phone: [facility] Comment on above: Acute hip pain, left (Primary Dx); Piriformis syndrome of left side Start: 11-19-2024 End: 11-19-2024 ambulatory JERMAIN MENCHACA Not Available Start: 11-06-2024 End: 11-06-2024 Emergency department patient visit KIERAN GAINES [facility] Start: 10-28-2024 End: 10-28-2024 Bamboo flowsheet Jermain Menchaca MD Work Phone: [facility] Start: 10-28-2024 End: 10-28-2024 Bamboo flowsheet Jermain Menchaca MD Work Phone: [facility] Start: 10-28-2024 End: 10-28-2024 Assay of hemosiderin, quant Jermain Menchaca MD Work Phone: [facility] Start: 10-28-2024 End: 10-28-2024 Patient encounter procedure Jermain Menchaca MD Work Phone: [facility] Comment on above: Routine general medi toni examination at [facility] care facility (Primary Dx); Benign essential hypertension ; Pure hypercholesterolemia ; Medicare annual wellness visit, subsequent; Retention of urine, unspecified Start: 10-28-2024 End: 10-28-2024 ambulatory JERMAIN Wan NIKOLAI Not Available Start: 04-29-2024 End: 04-29-2024 ambulatory JERMAIN MENCHACA Not Available Start: 01-22-2024 End: 01-22-2024 ambulatory Alberto Pacheco MD Facility:[facility] Start: 01-16-2024 End: 01-16-2024 ambulatory LITA SILVESTRE Not Available Start: 01-16-2024 End: 01-16-2024 Bamboo flowsheet Lita Silvestre BUILDING EQUIPMENT OPERATOR Work Phone: [facility] Start: 01-16-2024 End: 01-16-2024 Bamboo flowsheet Lita Silvestre BUILDING EQUIPMENT OPERATOR Work Phone: [facility] Start: 01-16-2024 End: 01-16-2024 ambulatory LITA SILVESTRE Not Available Start: 01-16-2024 End: 01-16-2024 Office outpatient visit 10 minutes Lita Silvestre BUILDING EQUIPMENT OPERATOR Work Phone: [facility] Comment on above: Closed fracture of m ultiple pubic rami, right, with routine healing, subsequent encounter Start: 01-09-2024 End: 01-09-2024 Bamboo flowsheet Chata COLIN Work Phone: [facility] Start: 01-09-2024 End: 01-09-2024 Bamboo flowsheet Chata Jarivs PA Work Phone: [facility] Start: 01-09-2024 End: 01-09-2024 Office outpatient visit 15 minutes Chata COLIN Work Phone: [facility] Comment on above: Pressure ulcer of co ccygeal region, stage 2 (CMS/HCC) (Primary Dx) Start: 01-09-2024 End: 01-09-2024 ambulatory CHATA JARVIS Not Available Start: 01-01-2024 End: 01-01-2024 ambulatory Alberto Pacheco MD Facility:[facility] Start: 12-26-2023 End: 12-26-2023 Bamboo flowsheet Chata Jarvis PA Work Phone: [facility] Start: 12-26-2023 End: 12-26-2023 Bamboo flowsheet Chata Jarvis PA Work Phone: [facility] Start: 12-26-2023 End: 12-26-2023 Office outpatient visit 15 minutes Chata Javris PA Work Phone: [facility] Comment on above: Pressure ulcer of co ccygeal region, stage 2 (CMS/HCC) (Primary Dx); Need for vaccination Start: 12-26-2023 End: 12-26-2023 ambulatory CHATA JARVIS Not Available Start: 12-25-2023 End: 12-26-2023 Telephone encounter Enrique Rutherford DO Work Phone: [facility] Comment on above: question Start: 12-25-2023 End: 12-25-2023 ambulatory Alberto Pacheco MD Facility:[facility] Start: 12-19-2023 End: 12-19-2023 Bamboo flowsheet Lita Silvestre NP Work Phone: [facility] Start: 12-19-2023 End: 12-19-2023 Bamboo flowsheet Lita Silvestre NP Work Phone: [facility] Start: 12-19-2023 End: 12-19-2023 Office outpatient visit 15 minutes Lita Silvestre NP Work Phone: [facility] Comment on above: Closed fracture of m ultiple pubic rami, right, with routine healing, subsequent encounter (Primary Dx); Closed nondisplaced fracture of medial wall of left acetabulum with routine healing, subsequent encounter; Left-sided low back pain with left-sided sciatica, unspecified chronicity Start: 12-19-2023 End: 12-19-2023 ambulatory LITA SILVESTRE Not Available Start: 11-23-2023 End: 11-23-2023 Bamboo flowsheet Lita Silvestre BUILDING EQUIPMENT OPERATOR Work Phone: [facility] Start: 11-23-2023 End: 11-23-2023 Bamboo flowsheet Lita Silvestre BUILDING EQUIPMENT OPERATOR Work Phone: [facility] Start: 11-23-2023 End: 11-23-2023 Office outpatient visit 10 minutes Lita Silvestre NP Work Phone: [facility] Comment on above: Closed fracture of m ultiple pubic rami, right, with routine healing, subsequent encounter; Closed nondisplaced fracture of medial wall of left acetabulum with routine healing, subsequent encounter Start: 11-09-2023 End: 11-09-2023 Bamboo flowstita Silvestre BUILDING EQUIPMENT OPERATOR Work Phone: [facility] Start: 11-09-2023 End: 11-09-2023 Bamboo flowsheet Lita Silvestre BUILDING EQUIPMENT OPERATOR Work Phone: [facility] Start: 11-09-2023 End: 11-09-2023 Office outpatient visit 15 minutes Lita Silvestre BUILDING EQUIPMENT OPERATOR Work Phone: [facility] Comment on above: Closed fracture of m ultiple pubic rami, right, initial encounter (CMS/HCC) (Primary Dx); Nondisplaced fracture of medial wall of left acetabulum, initial encounter for closed fracture (CMS/HCC) Start: 10-30-2023 End: 10-30-2023 Assay of hemosiderin, quant Jermain Menchaca MD Work Phone: [facility] Work Phone: Start: 10-30-2023 End: 10-30-2023 Bamboo flowsheet Jermain Menchaca MD Work Phone: [facility] Start: 10-30-2023 End: 10-30-2023 Bamboo flowsheet Jermain Menchaca MD Work Phone: [facility] Start: 10-30-2023 End: 10-30-2023 Patient encounter procedure Jermain Menchaca MD Work Phone: [facility] Comment on above: Routine general medi toni examination at [facility] care facility (Primary Dx); 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); 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); Benign essential hypertension ([facility]/HCC); Pure hypercholesterolemia ([facility]/HCC) Start: 08-28-2023 End: 08-28-2023 ambulatory Alberto Pacheco MD Facility:[facility] Start: 08-14-2023 End: 08-14-2023 ambulatory Alberto Pacheco MD Facility:[facility] Start: 08-07-2023 End: 08-07-2023 ambulatory Alberto Pacheco MD Facility:[facility] Start: 06-05-2023 End: 06-06-2023 Telephone encounter Sunitha Giron RN [facility] Start: 10-11-2022 End: 01-09-2024 Assay of hemosiderin, quant Jermain Menchaca MD Work Phone: [facility] Start: 12-17-2021 End: 12-17-[address] JERMAIN MENCHACA Facility:[facility]1 Procedures Date Procedure Procedure Detail Performing Clinician Start: 01-16-2024 Radiologic examinati on pelvis 1/2 views Lita Silvestre BUILDING EQUIPMENT OPERATOR Work Phone: Start: 12-19-2023 Radiologic examinati on pelvis 1/2 views Lita Silvestre BUILDING EQUIPMENT OPERATOR Work Phone: Start: 11-23-2023 Radiologic examinati on pelvis 1/2 views Lita Silvestre BUILDING EQUIPMENT OPERATOR Work Phone: Plan of Treatment Date Care Activity Detail Author Start: 10-28-2025 Medicare Annual Wellness (AWV) Medicare Annual Wellness (AWV) [facility] Start: 04-28-2025 End: 04-28-2025 Patient encounter procedure 04/28/2025 8:30 AM EDT Office Visit [facility] [address] [place] [phone] Jermain Menchaca MD [address] [place] [address] [facility] Start: 10-29-2024 Medicare Annual Wellness (AWV) Medicare Annual Wellness (AWV) [facility] Start: 10-28-2024 End: 10-28-2025 CBC W Auto Differential panel - Blood CBC and differential Lab Routine Benign essential hypertension Pure hypercholesterolemia Medicare annual wellness visit, subsequent Expected: 10/28/2024 (Approximate), Expires: 10/28/2025 [facility] Comment on above: Expected: 10/28/2024 (Approximate), Expi res: 10/28/2025 Start: 10-28-2024 End: 10-28-2025 Comprehensive metabolic 2000 panel - Serum or Plasma Comprehensive metabolic panel Lab Routine Benign essential hypertension Pure hypercholesterolemia Medicare annual wellness visit, subsequent Expected: 10/28/2024 (Approximate), Expires: 10/28/2025 [facility] Comment on above: Expected: 10/28/2024 (Approximate), [...] 9:30 AM EDT Office Visit [facility] [address] [place] [phone] Jermain Menchaca MD [address] [facility] [address] [place] [address] Arrived [facility] Comment on above: Arrived Start: 10-21-2024 Influenza vaccination Influenza Vaccine (#1) [facility] Start: 06-01-2024 Adult BMI Screening Adult BMI Screening [facility] Start: 05-31-2024 Tobacco Screening Tobacco Screening [facility] Start: 04-29-2024 End: 04-29-2024 Patient encounter procedure 04/29/2024 9:45 AM EDT Office Visit [facility] [address] [facility] [address] [place] [address] Jermain Menchaca MD [address] [place] [address] [facility] Start: 01-16-2024 End: 01-16-2024 Patient encounter procedure 01/16/2024 10:15 AM EST Office Visit [facility] [address] [facility] [address] [place] [address] Lita Silvestre, BUILDING EQUIPMENT OPERATOR [address] [place] [address] [facility] Start: 01-09-2024 End: 01-09-2024 Patient encounter procedure [facility] Comment on above: Arrived Start: 12-26-2023 End: 12-26-2023 Patient encounter procedure 12/26/2023 8:30 AM EST Office Visit [facility] [address] [facility] [address] [place] [address] Chata Jarvis PA [address] [facility] [address] [place] [address] Arrived [facility] Comment on above: [...] Visit [facility] [address] [place] [phone] Lita Silvestre, BUILDING EQUIPMENT OPERATOR [address] [place] [address] [facility] Start: 11-23-2023 End: 11-23-2023 Patient encounter procedure 11/23/2023 2:00 PM EDT Office Visit [facility] [address] [place] [phone] Lita Silvestre, BUILDING EQUIPMENT OPERATOR [address], [place] [id number] Arrived [facility] Comment on above: Arrived Start: 11-09-2023 End: 11-09-2023 Patient encounter procedure 11/09/2023 1:45 PM EDT Office Visit [facility] [address] [place] [phone] Lita Silvestre, BUILDING EQUIPMENT OPERATOR [address] [place] [address] Arrived [facility] Comment on above: Arrived Start: 10-30-2023 End: 10-30-2023 Patient encounter procedure 10/30/2023 2:00 PM EDT Office Visit [facility] [address] [facility] [address] [place] [phone] Jermain Menchaca MD [address] [facility] [address] [place] [address] Arrived [facility] Comment on above: Arrived Start: 10-22-2023 Influenza vaccination [facility] Start: 10-12-2023 Medicare Annual Wellness (AWV) Medicare Annual Wellness (AWV) [facility] Start: 2001 Fall Risk Screening Fall Risk Screening [facility] Start: 1986 Administration of varicella zoster vaccine Zoster (Shingles) Vaccine (1 of 2) [facility] Start: 08-25-1955 DTaP,Tdap and Td Vaccines (1 - Tdap) DTaP,Tdap and Td Vaccines (1 - Tdap) [facility] Start: 1948 Depression Screening Depression Screening [facility] Start: 1936 Medicare Annual Wellness Visit Medicare Annual Wellness Visit [facility] Immunizations Immunization Date Immunization Notes Care Provider John hein 12-26-2023 Influenza, High-dose Seasonal, Quadrivalent, Preservative Free Chata COLIN Work Phone: [facility] 12-26-2023 influenza virus vacc ine, unspecified formulation Jermain Menchaca MD Work Phone: [facility] 12-22-2022 influenza, high dose seasonal, preservative-free Jermain Menchaca MD Work Phone: [facility] 12-22-2022 influenza virus vacc ine, unspecified formulation Sunitha Giron RN [facility] 12-18-2021 Influenza, High-dose Seasonal, Quadrivalent, Preservative Free Jermain Menchaca MD Work Phone: [facility] 12-18-2021 Moderna Bivalent Silver ster Vaccination Jermain Menchaca MD Work Phone: [facility] 12-01-2020 Influenza, High-dose Seasonal, Quadrivalent, Preservative Free Jermain Menchaca MD Work Phone: [facility] 12-16-2019 influenza, injectabl e, quadrivalent, preservative free Jermain Menchaca MD Work Phone: [facility] 12-10-2018 influenza, injectabl e, quadrivalent, preservative free Jermain Menchaca MD Work Phone: [facility] 12-20-2017 influenza, high dose seasonal, preservative-free Jermain Menchaca MD Work Phone: [facility] 12-11-2017 influenza, injectabl e, quadrivalent, preservative free Jermain Menchaca MD Work Phone: [facility] 11-01-2016 influenza, high dose seasonal, preservative-free Jermain Menchaca MD Work Phone: [facility] 11-01-2016 pneumococcal conjuga te vaccine, 13 valent Jermain Menchaca MD Work Phone: [facility] 11-21-2015 pneumococcal polysaccharide vaccine, 23 valent Jermain Menchaca MD Work Phone: [facility] 11-19-2015 influenza, injectabl e, madin abhijit canine kidney, preservative free Jermain Menchaca MD Work Phone: [facility] 10-29-2015 influenza virus vacc ine, unspecified formulation Jermain Menchaca MD Work Phone: [facility] 10-29-2015 influenza, seasonal, injectable, preservative free Jermain Menhcaca MD Work Phone: [facility] 01-03-2015 influenza, high dose seasonal, preservative-free Jermain Menchaca MD Work Phone: [facility] 04-14-2014 pneumococcal vaccine , unspecified formulation Jermain Menchaca MD Work Phone: [facility] 11-14-2012 influenza virus vacc ine, whole virus Jermain Menchaca MD Work Phone: [facility] 11-22-2011 influenza virus vacc ine, whole virus Jermain Menchaca MD Work Phone: [facility] 11-17-2010 influenza virus vacc ine, whole virus Jermain Menchaca MD Work Phone: [facility] 12-02-2009 influenza virus vacc ine, whole virus Jermain Menchaca MD Work Phone: [facility] 11-26-2008 influenza virus vacc ine, whole virus Jermain Menchaca MD Work Phone: [facility] 12-06-2006 influenza virus vacc ine, whole virus Jermain Menchaca MD Work Phone: [facility] Payers Date Payer Category Payer Unknown [id number] 2014 Private Health Insurance [id number] 2001 Medicare [id number] 1959 Medicare [id number] 1959 Unknown [id number] 1936 Unknown [id number] 2.16.84 [id number] 1936 Unknown [id number] 2.16. [id number] 1936 Unknown [id number] 2.16. [id number] 1936 Unknown [id number] 2.16. [id number] 1936 Unknown [id number] 2.16. [id number] 1936 Unknown [id number] 2.16. [id number] 1936 Unknown [id number] 2.16. [id number] 1936 Unknown [id number] 2.16. [id number] 1936 Unknown [id number] 2.16.8 [id number] 1936 Unknown [id number] 2.16.8 [id number] 1936 Unknown [id number] 2.16.84 [id number] 1936 Unknown [id number] 2.16.84 [id number] 1936 Unknown [id number] 2.16.84 [id number] 1936 Unknown [id number] 2.16.84 [id number] 1936 Unknown [id number] 2.16.84 [id number] 1936 Unknown [id number] 2.16.84 [id number] 1936 Unknown [id number] 2.16.84 [id number] Social History Date Type Detail Facility Start: 12-01-2021 End: 08-21-2023 Tobacco smoking status ARIS Ex-smoker [facility] Work Phone: End: 02-20-1969 History of tobacco use Current smoker [facility] End: 02-20-1969 History of tobacco use Cigarette Smoker [facility] Start: 12-01-2021 End: 08-21-2023 Tobacco use and exposure Smokeless tobacco non-user [facility] Start: 10-30-2023 End: 11-19-2024 Alcoholic beverage intake Current drinker of alcohol (finding) [facility] Start: 10-30-2023 End: 11-19-2024 History of Social function [facility] Start: 10-30-2023 End: 11-19-2024 Tobacco use panel [facility] Start: 12-01-2022 Alcohol Comment 1-2 drinks monthly or less [facility] Start: 1936 Sex assigned at Not on file [facility] Has the LeadFire, eReceipts, 5to1, or Object[employer] threatened to shut off services in your home in past 12Mo No [facility] In the past 12 month s, has lack of transportation kept you from medical appointments or from getting medications? No [facility] Start: 12-01-2021 Tobacco Comment Quit smoking over 40 years ago [facility] Start: 08-03-2018 Alcohol Comment rare [facility] Goals Date Patient Goal Desired Activity /State Personal health goal Comment on above: Formatting of this n ote might be different from the original. Evaluation of progress towards goal: Safe dc transition from hospital to home with family support. Functional Status Date Assessment Result Facility 11-19-2024 Patient Health Quest ionnaire 2 item (PHQ-2) [Reported] [facility] 10-28-2024 Patient Health Quest ionnaire 2 item (PHQ-2) [Reported] [facility] Clinical Notes 06-21-2021 to 11-19-2024 Jermain Menchaca MD - 11/19/2024 9:42 AM EDRizwan Menchaca MD - 11/19/2024 9:36 AM Shilpa Menchaca MD - 11/19/2024 9:30 AM Shilpa Menchaca MD - 10/28/2024 9:37 AM EDT Note Date & Type Note Facility 11-19-2024 History of Present illness Narrative Associated Problem(s): Piriformis syndrome of left side Stretching exercises given Associated Problem(s): Acute hip pain, left Stretching and strengthening exercises. NSAIDs as needed Images from the original note were not included. HPI ER Follow-up Additional comments: 11/06 for strain of left hip Last edited by Ligia Mccall MA on 11/19/2024 7:07 AM. Subjective Patient ID: Enrique Mike is a 89 y.o. male who presents for ER Follow-up (11/06 for strain of left hip ). Pt was in ER due to hearing a pop when he bent over, they did do XR did not see anything , pt states his hip is getting better somewhat tinder Pt does have an appt with pain management next week but states this is for the other hip Flowsheet Row Patient Outreach from 11/08/2024 in [facility] with Shannan Veliz RN Hospital Information ED, Hospital or [facility] Facility Discharge? ED Patient has been contacted within 2 days of being seen in the ED Yes Diagnosis Strain of left hip Discharge Date 11/06/24 Discharged To: Home Setting Discharge Hospital [facility] Engagement Call Start Time 0849 Admission Date 11/06/24 Medications Discharge medications reviewed and reconciled from hospital? Yes Is the patient having any side effects they believe may be caused by any medication additions or changes? No Does the patient have all medications ordered at discharge? Yes Prescription Comments Naproxen Appointments Does the patient have a primary care provider? Yes Nursing Interventions Verified appointment date/time/provider Does the patient have any upcoming specialty appointments? Yes [goes to pain management] Nursing Interventions Advised patient to keep appointment Self Management Patient Teaching Does the patient have access to their discharge instructions? Yes Nursing Interventions Reviewed instructions with patient What is the patient's perception of their health status since discharge? Improving Wrap Up Wrap Up Additional Comments Pt presented to ER for evaluation, bent over to tow picker an apple and felt a pop in the back of his leg. Test: XR of left hip. Call End Time 0856 Over the past 2 weeks, how often have you been bothered by any of the following problems? Little interest or pleasure in doing things: Not at all Feeling down, depressed, or hopeless: Not at all Patient Health Questionnaire-2 Score: 0 Current Outpatient Medications on File Prior to [...] 100 mg by mouth in the morning. Cyanocobalamin (VITAMIN B 12 PO) Take 1,000 mcg by mouth Daily Ferrous Sulfate (iron) 325 (65 Fe) MG tablet Take 65 mg by mouth Daily finasteride (Proscar) 5 MG tablet Take 5 mg by mouth in the morning. HYDROcodone-acetaminophen ([place]) 5-325 MG tablet Take 1 tablet by mouth every 6 (six) hours if needed levothyroxine (Synthroid, Levoxyl) 100 MCG tablet TAKE 1 TABLET BY MOUTH DAILY *hold on sundays* 90 tablet 3 lisinopril 10 MG tablet Take 1 tablet (10 mg) by mouth Daily 100 tablet 3 lovastatin (Mevacor) 20 MG tablet Take 1 tablet (20 mg) by mouth in the evening. Take with meals 100 tablet 3 meloxicam (Mobic) 15 MG tablet TAKE 1 TABLET BY MOUTH IN THE MORNING WITH FOOD 100 tablet 3 naproxen (Naprosyn) 375 MG tablet Take 375 mg by mouth in the morning and 375 mg in the evening. Take with meals. Nutritional Supplements (PROSTA JENISE PO) Take by mouth 2 (two) times a day. tamsulosin (Flomax) 0.4 MG 24 hr capsule Take 1 capsule (0.4 mg) by mouth Daily 100 capsule 3 traMADol (Ultram) 50 MG tablet Take 50 mg by mouth every 6 (six) hours if needed for severe pain No current facility-administered medications on file prior to visit. I have reviewed and reconciled the history and medication list with the patient today. 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 Rutherford. [facility] [place] REPAIR OF HAMMERTOE,ONE Bilateral Procedure:Surgical repair;Disease:Hammer Toe bilat REVERSE TOTAL SHOULDER ARTHROPLASTY Left 06/21/2021 Reverse total shoulder Replacement Dr. Rutherford. Michael ROTATOR CUFF REPAIR Bilateral left 1997, right 2006 THYROIDECTOMY Goiter TOE SURGERY Procedure:surgical repair;Disease:Overlapping little toe Visit Vitals BP 134/84 Pulse 68 Ht 5' 9 Wt 168 lb SpO2 98% BMI 24.81 kg/m Smoking Status Former BSA 1.93 m Review of Systems Musculoskeletal: Positive for gait problem and joint swelling. Left hip pain ater pop sound Objective Physical Exam Constitutional: Appearance: Normal appearance. HENT: Head: Normocephalic and atraumatic. Musculoskeletal: Legs: Comments: Points to location of pain Neurological: Mental Status: He is alert. Assessment/Plan Problem List Items Addressed This Visit Acute hip pain, left - Primary Stretching and strengthening exercises. NSAIDs as needed Piriformis syndrome of left side Stretching exercises given Follow up if symptoms worsen or fail to improve. documented in this encounter [facility] 10-28-2024 History of Present illness Narrative Associated [...] male here for an annual wellness visit. [facility] I have reviewed and reconciled the history [...] mg by mouth in the morning. HYDROcodone-acetaminophen ([place]) 5-325 MG tablet Take 1 tablet by [...] Do you have a medical power of title attorney?: Yes Objective : BP 132/82 Pulse [...] October 28, 2024 documented in this encounter [facility] 11-26-2024 History of Present illness Narrative Images from the original note were not included. Chief Complaint Patient presents with Pelvis - Follow-up HISTORY OF PRESENT ILLNESS: Enrique Mike is an 88 y.o. @ male. Low back/pelvis injury x 10 weeks 2 days, 11/05/23, fell back off a ladder. Went to [facility] ER 11/05, had CT abdomen pelvis [...] in tailbone with prolonged sitting. Prior tx: [facility] ER 11/06/23, CT abdomen pelvis, norco, TYL, XR [facility] 12/19/23, XR [facility] 01/16/24 ALLERGIES: No Known Allergies HOME MEDICATIONS: Current Outpatient Medications Medication Instructions acetaminophen (TYLENOL) 325 mg, Oral, Every 6 hours PRN baclofen (LIORESAL) 10 mg, Oral, 2 times daily PRN co-enzyme Q-10 100 mg, Oral, Daily finasteride (PROSCAR) 5 mg, Oral, Daily HYDROcodone-acetaminophen ([place]) 5-325 MG tablet 1 tablet, Oral, Every [...] Oral, Every 6 hours PRN Wound Dressings ([facility] wound/burn) gel APPLY TO THE AFFECTED AREA(S) [...] rami and left acetabulum fracture. Lita Silvestre FIBERGLASS LAMINATOR-AMF MECHANIC ASSESSMENT: ICD-10-CM 1. Closed fracture of multiple [...] develop for requiring urgent evaluation. Lita Silvestre APRN-AMF MECHANIC documented in this encounter [facility] 01-09-2024 History of Present illness Narrative Subjective [...] mg by mouth in the morning. HYDROcodone-acetaminophen ([place]) 5-325 MG tablet Take 1 tablet by [...] if needed for severe pain Wound Dressings ([facility] wound/burn) gel APPLY TO THE AFFECTED AREA(S) [...] Right 08/08/[address] Rutherford. [facility] [place] REPAIR OF HAMMERTOE,ONE Bilateral Procedure:Surgical repair;Disease:Hammer Toe [...] Appointment As Scheduled. documented in this encounter [facility] 12-26-2023 History of Present illness Narrative Images [...] like.He has been using a cream the woodwork salvage inspector prescribed (doesn't know the name of the [...] mg by mouth in the morning. HYDROcodone-acetaminophen ([place]) 5-325 MG tablet Take 1 tablet by [...] Right 08/08/[address] Rutherford. [facility] [place] REPAIR OF HAMMERTOE,ONE Bilateral Procedure:Surgical repair;Disease:Hammer Toe [...] region, stage 2 (CMS/HCC) - Wound Dressings ([facility] wound/burn) gel; Apply 1 application topically Daily [...] vaccination - Influenza, high-dose seasonal, quadrivalent, PF (AEC169) (Fluzone High Dose Quad North 0.7mL dose) Provided pt with Flu shot today. He tolerated this well. Follow up for Wound Check in 1-2 Weeks. documented in this encounter [facility] 12-25-2023 Telephone encounter Note Ariadna good [facility] Work Phone: 12-25-2023 Miscellaneous Notes Ariadna good I can see him in [place] today but I dont know how much I will be able to do. Gerardo son called for patient stated his dad was seen for L-spine and hip pain by you and Dr Rutherford he was referred to pain mgmt in [facility] also, he can hardly walk and in a lot of pain. He asked where he should start, he did try [facility] mgmt number but had trouble getting ahold of them, I gave him the number to hospital and told him to ask for pain mgmt. He asked should he go there or can you or Dr Rutherford see him? Please advise. His call back [phone] documented in this encounter [facility] 12-25-2023 Telephone encounter Note I can see him in [place] today but I dont know how much I will be able to do. [facility] 12-25-2023 Telephone encounter Note Gerardo son called for patient stated his dad was seen for L-spine and hip pain by you and Dr Rutherford he was referred to pain mgmt in [facility] also, he can hardly walk and in a lot of pain. He asked where he should start, he did try [facility] mgmt number but had trouble getting ahold of them, I gave him the number to hospital and told him to ask for pain mgmt. He asked should he go there or can you or Dr Rutherford see him? Please advise. His call back [phone] [facility] 12-19-2023 History of Present illness Narrative Images from the original note were not included. Chief Complaint Patient presents with Pelvis - Follow-up HISTORY OF PRESENT ILLNESS: Enrique Mike is an 88 y.o. @ male. Low back/pelvis injury x 6 weeks 2 days, 11/05/23, fell back off a ladder. Went to [facility] ER 11/05, had CT abdomen pelvis and given norco. Hx decompressive laminectomy L3-4, L4-5 (12/01/21)- Dr Rutherford Walking with a walker. States he was doing fine but has recently been having a terrible time. Unsure if something shifted. Pain is mostly LT sided. Taking TYL and IBU. Prior tx: [facility] ER 11/06/23, CT abdomen pelvis, norco, TYL, XR [facility] 12/19/23 ALLERGIES: No Known Allergies HOME MEDICATIONS: Current Outpatient Medications Medication Instructions acetaminophen (TYLENOL) 325 mg, Oral, Every 6 hours PRN baclofen (LIORESAL) 10 mg, Oral, 2 times daily PRN co-enzyme Q-10 100 mg, Oral, Daily finasteride (PROSCAR) 5 mg, Oral, Daily HYDROcodone-acetaminophen ([place]) 5-325 MG tablet 1 tablet, Oral, Every [...] rami and left acetabulum fracture. Lita Silvestre FIBERGLASS LAMINATOR-AMF MECHANIC ASSESSMENT: ICD-10-CM 1. Closed fracture of multiple [...] develop for requiring urgent evaluation. Lita Silvestre FIBERGLASS LAMINATOR-AMF MECHANIC documented in this encounter [facility] 11-23-2023 History of Present illness Narrative Images from the original note were not included. Chief Complaint Patient presents with Pelvis - Follow-up HISTORY OF PRESENT ILLNESS: Enrique Mike is an 88 y.o. @ male. Low back/pelvis injury x 2 weeks 4 days, 11/05/23, fell back off a ladder. Went to [facility] ER 11/05, had CT abdomen pelvis and given norco. Hx decompressive laminectomy L3-4, L4-5 (12/01/21)- Dr Rutherford WBAT with walker. States he sat for a while in a hard chair, had increased pain. Pain near RT hip/buttocks. Taking TYL. Denies N/T. Does not wake at HS, sleep better in chair. Increased pain with walking. Prior tx: [facility] ER 11/06/23, CT abdomen pelvis, norco, TYL ALLERGIES: No Known Allergies HOME MEDICATIONS: Current Outpatient Medications Medication Instructions acetaminophen (TYLENOL) 325 mg, Oral, Every 6 hours PRN baclofen (LIORESAL) 10 mg, Oral, 2 times daily PRN co-enzyme Q-10 100 mg, Oral, Daily finasteride (PROSCAR) 5 mg, Oral, Daily HYDROcodone-acetaminophen ([place]) 5-325 MG tablet 1 tablet, Oral, Every [...] rami and left acetabulum fracture. Lita Silvestre FIBERGLASS LAMINATOR-AMF MECHANIC ASSESSMENT: ICD-10-CM 1. Closed fracture of multiple [...] develop for requiring urgent evaluation. Lita Silvestre APRN-AMF MECHANIC documented in this encounter [facility] 11-09-2023 History of Present illness Narrative Images from the original note were not included. Chief Complaint Patient presents with Lower Back - Pain HISTORY OF PRESENT ILLNESS: Enrique Mike is an 88 y.o. @ male. Est pt, new problem. Low back/pelvis injury x 4 days, 11/05/23, fell back off a ladder. Went to [facility] ER 11/05, had CT abdomen pelvis and given norco. Hx decompressive laminectomy L3-4, L4-5 (12/01/21)- Dr Rutherford Walking with a walker. Denies pain in low back. Pain near RT hip/buttocks. Taking TYL. Denies N/T. Does not wake at HS, sleep better in chair. Increased pain with walking. Prior tx: [facility] ER 11/06/23, CT abdomen pelvis, norco ALLERGIES: No Known Allergies HOME MEDICATIONS: Current Outpatient Medications Medication Instructions acetaminophen (TYLENOL) 325 mg, Oral, Every 6 hours PRN baclofen (LIORESAL) 10 mg, Oral, 2 times daily PRN co-enzyme Q-10 100 mg, Oral, Daily finasteride (PROSCAR) 5 mg, Oral, Daily HYDROcodone-acetaminophen ([place]) 5-325 MG tablet 1 tablet, Oral, Every [...] of multiple pubic rami, right, initial encounter ([facility]) S32.591A 2. Nondisplaced fracture of medial wall of left acetabulum, initial encounter for closed fracture ([facility]) S32.475A Procedures PLAN: I reviewed CT findings [...] develop for requiring urgent evaluation. 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 Duff, Dr. 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 Duff, Dr. 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 HARRIS POST [...] or concerns, please call the office at [phone] -Follow up as scheduled [facility] 06-22-2021 Note [facility] 2SOUT Clinical Discharge Summary PERSON INFORMATION Name ENRIQUE MIKE Age 85 Years 1935 Sex MALE Language Botswanan PCP JERMAIN MENCHACA MD Marital Status Med Service Observation Acct# Arrival 06/21/2021 05:54:00 Visit Reason SURGERY - LEFT REVERSE TOTAL SHOULDER - ARTHREX Acuity LOS 000 29:26 Address: [address] [place] [id number] Comment: PROVIDER INFORMATION VITALS INFORMATION Vital Sign [...] Follow up: With: Address: When: Enrique Rutherford [address] [place] [address] [facility] (1) 06/29/2021 10:45 AM DIAGNOSIS Osteoarthritis of left shoulder; Other specific arthropathies, not elsewhere classified, left shoulder; Rotator cuff tear arthropathy of left shoulder Comment: PHYS DOC NOTES [facility] 06-21-2021 Note [id number] Evaluation note Diagnosis Closed fracture [...] closed fracture (CMS/HCC) documented in this encounter [facility] HealthcareEvaluation note* [...] of urine, unspecified documented in this encounter [facility] HealthcareEvaluation note* Diagnosis Screening PSA (prostate specific antigen)- Primary Special screening for malignant neoplasm of prostate Cervicalgia Benign essential hypertension Essential hypertension, benign Abnormal glucose tolerance test Impaired glucose tolerance test Nocturia Pure hypercholesterolemia Screening for prostate cancer Special [...] essential hypertension Essential hypertension, benign Pure hypercholesterolemia Benign essential hypertension- Primary Essential hypertension, benign 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 Routine general medical examination at health care facility- Primary Routine general medical examination at a [facility] care facility Benign essential hypertension Essential hypertension, benign Pure hypercholesterolemia Medicare annual wellness visit, subsequent Retention of urine, unspecified Acute hip pain, left- Primary Piriformis syndrome of left side documented in this encounter [facility] HealthcareInstructionsNot on filedocumented in this [facility] Purpose Family History No Family [...] section and content) DATE CREATED AUTHOR 10/13/2021 [facility] DATE CREATED AUTHOR AUTHOR'S ORGANIZ ATION 10/18/2021 [place] [facility] DATE CREATED AUTHOR AUTHOR'S ORGANIZ ATION 12/20/2021 [facility] DATE CREATED AUTHOR AUTHOR'S ORGANIZ ATION 01/26/[address] [facility] DATE CREATED AUTHOR AUTHOR'S ORGANIZ ATION 11/02/2024 [facility] DATE CREATED AUTHOR AUTHOR'S ORGANIZ ATION 11/07/2024 [facility] DATE CREATED AUTHOR AUTHOR'S ORGANIZ ATION 11/24/2024 [facility] dical Specialists EPIC Care Teams (unrecognized sec tion and content) College Director Relationship Specialty Start Date End Date Jermain Menchaca MD [address] [place] [address] [place] [address] PCP - General Family Medicine 07/04/22 Jermain Menchaca MD [address] [place] [address] PCP - ACO Reach 07/14/22 College Director Relationship Specialty Start Date End Date Jermain Menchaca MD [address] [facility] [address] [place] [address] PCP - General Family Medicine 07/04/22 Jermain Menchaca MD [address] [place] [address] PCP - ACO Reach 07/14/22 College Director Relationship Specialty Start Date End Date Jermain Menchaca MD [address] [place] [address] PCP - General Family Medicine 07/04/22 Jermain Menchaca MD [address] [place] [address] PCP - ACO Reach 07/14/22 College Director Relationship Specialty Start Date End Date Jermain Menchaca MD [address] [place] [address] PCP - General Family Medicine 07/04/22 Jermain Menchaca MD [address] [place] [address] PCP - ACO Reach 07/14/22 College Director Relationship Specialty Start Date End Date Jermain Menchaca MD [address] [place] [address] PCP - General Family Medicine 07/04/22 Jermain Menchaca MD [address] [place] [address] PCP - ACO Reach 07/14/22 College Director Relationship Specialty Start Date End Date Jermain Menchaca MD [address] [place] [address] PCP - General Family Medicine 07/04/22 Jermain Menchaca MD [address] [place] [address] PCP - ACO Reach 07/14/22 College Director Relationship Specialty Start Date End Date Jermain Menchaca MD [address] [place] [address] PCP - General Family Medicine 07/04/22 Jermain Menchaca MD [address] [place] [address] PCP - ACO Reach 07/14/22 College Director Relationship Specialty Start Date End Date Jermain Menchaca MD [address] [place] [address] PCP - General Family Medicine 07/04/22 Jermain Menchaca MD [address] [place] [address] PCP - ACO Reach 07/14/22 College Director Relationship Specialty Start Date End Date Jermain Menchaca MD [address] [place] [address] PCP - General Family Medicine 07/04/22 Jermain Menchaca MD [address] [place] [address] PCP - ACO Reach 07/14/22 College Director Relationship Specialty Start Date End Date Jermain Menchaca MD [address] [place] [address] PCP - General Family Medicine 07/04/22 Jermain Menchaca MD [address] [place] [address] PCP - ACO Reach 07/14/22 College Director Relationship Specialty Start Date End Date Jermain Menchaca MD [address] [place] [address] PCP - General Family Medicine 07/04/22 Jermain Menchaca MD [address] [place] [address] PCP - ACO Reach 07/14/22 College Director Relationship Specialty Start Date End Date Jermain Menchaca MD [address] [place] [address] PCP - General Family Medicine 07/04/22 Jermain Menchaca MD [address] [place] [place] [address] PCP - ACO Reach 07/14/22 College Director Relationship Specialty Start Date End Date Jermain Menchaca MD [facility] [place] [address] PCP - General Family Medicine 08/03/18 College Director Relationship Specialty Start Date End Date Jermain Menchaca MD [address] [facility] [address] [place] [address] PCP - General Family Medicine 07/04/22 Jermain Menchaca MD [address] [facility] [address] [place] [address] PCP - ACO Reach 07/14/22 College Director Relationship Specialty Start Date End Date Jermain eMnchaca MD [address] [facility] [address] [place] [address] PCP - General Family Medicine 07/04/22 Jermain Menchaca MD [address] [facility] [address] [place] [address] PCP - ACO Reach 07/14/22 Reason for Visit (unrecogniz ed section and content) Reason Comments Follow-up Reason Onset Date Comments question 12/25/2023 Reason Comments Medicare Annual Wellness Visit Subsequen t Reason Comments Pain Reason Comments ER Follow-up 11/06 for strain of l eft hip FOR RECORDS PERTAINING TO PATIENTS WHO ARE [...] BE BASED ON THE PRIMARY CLINICAL RECORDS. [facility] [employer] [facility]. provides no warranty or guarantee of the accuracy or completeness of information in this document.
[2024-11-25 12:35] VITALS: BP 132/86; PULSE 65; TEMP 36.6; O2SAT 100
[2024-11-25 13:36] VITALS: BP 154/71; PULSE 74; O2SAT 98
[2024-11-25 13:37] VITALS: BP 164/77; PULSE 74; O2SAT 98
[2024-11-25] MEDS: 0.9 % SODIUM CHLORIDE 10 ML SYRINGE - SALINE FLUSH INJ (13:39)
[2024-11-25] MEDS: LIDOCAINE HCL 2% 400 MG/20 ML MDV INJ (13:40)
[2024-11-25] MEDS: IOHEXOL 240 MG/ML - 10 ML VIAL INJ (13:40)
[2024-11-25] MEDS: BUPIVACAINE HCL 0.25% PF 25 MG/10 ML VIAL INJ (13:40)
[2024-11-25] MEDS: METHYLPREDNISOLONE ACETATE 80 MG/ML VIAL INJ (13:40)
--- NOTE | 2024-11-25 13:44 | P.ON_ITS ---
Date of procedure: 11/25/24 Pre-op diagnosis: Pain due to lumbar stenosis with neurogenic claudication Post-op diagnosis: same as pre-op Procedure: Procedure: Right L4-5, L5-S1 transforaminal epidural steroid injection Medications: Bupivacaine 0.25% 2cc, lidocaine 2% 1cc, depomedrol 80mg The patient was seen and examined in the preoperative holding area.? Informed consent was obtained and placed on the chart.? Patient was brought to the medical procedure unit and placed in the prone position where a timeout was completed verifying the correct patient, procedure site, position, and planned special equipment using sterile aseptic technique.? Under direct fluoroscopic visualization a 25-gauge Quincke tipped spinal needle was advanced to the designated neural foramen where contrast dye was injected to show adequate spread.? The needle was inserted at level right L4-5. There was no evidence of vascular or adverse uptake.? Epidural spread was appreciated.? The above- mentioned injectate was then placed in a 1.5 mL aliquot preceded by negative aspiration.? The needle was removed. The needle was inserted and the procedure repeated at level right L5-S1.? The surgery site was covered.? Patient was taken to the postprocedural recovery area and monitored for an appropriate length of time before found suitable for discharge in the accompaniment of a responsible adult. Anesthesia: Local Surgeon: Alberto Pacheco Pathology: none sent Condition: stable Disposition: no change
== END 2024-11-25 13:45 | disposition home or self-care (01) ==
PROVIDERS: PCP Family Medicine; Visit Provider Anesthesiology
DX: M48.062 Spinal stenosis, lumbar region with neurogenic claudication (principal); M54.50 Low back pain, unspecified
CPT/HCPCS: 64483; 64484; J0665; J1010; Q9966

== ENCOUNTER 2024-12-04 08:01 | Outpatient (OUT) | payer MEDICARE, SELFPAY ==
--- OUTSIDE RECORDS SUMMARY | 2024-12-04 08:05 | XMS_ITS | CCD ---
Author Organization [facility] Care Team Providers Care Clothing Busheler Name Role Phone NIKOLAI, DR ALY Attending Unavailable NIKOLAI, DR ALY Primary Care Unavailable NIKOLAI, DR ALY Admitting Unavailable Jermain Menchaca MD Primary Care Provider [phone] Jermain Menchaca MD Unavailable Jermain Menchaca MD Primary Care Provider KIERAN GAINES Attending Unavailable JERMAIN MENCHACA Primary Care Unavailable JERMAIN MENCHACA Attending Unavailable JERMAIN MENCHACA Attending Unavailable LITA SILVESTRE Attending Unavailable LITA SILVESTRE Referring Unavailable HEMCHATA ESPARZA Attending Unavailable JERMAIN MENCHACA Attending Unavailable HEMCHATA ESPARZA Attending Unavailable LITA SILVESTRE Attending Unavailable LITA SILVESTRE Referring Unavailable Junior LEDEZMA, Alberto Ansari Attending Unavailable Junior LEDEZMA, Alberto Ansari Attending Unavailable Junior LEDEZMA, Alberto Ansari Attending Unavailable Junior LEDEZMA, Alberto Ansari Attending Unavailable Medications Current Medications Medication Drug [...] mouth every six hours as needed HYDROcodone-acetaminophen (Dierks) 5-325 MG tablet Take 1 tablet by mouth every 6 (six) hours if needed 11/06/2023 Active ascorbic acid 226 mg / beta carotene 27358 unt / cuprous oxide 0.8 mg / dl-alpha tocopheryl acetate 200 unt / zinc oxide 34.8 mg oral capsule (1 source) Vitamin C take 1 capsule by mouth in the morning vitamins A,C,U-thzx-ovjiqf (ICAPS AREDS) 14,320-226-200 jpke-gw-orky capsule Take 1 capsule by mouth in [...] meals. 11/06/2024 11/19/2024 Active Nutritional Supplements (PROSTA JENISE PO) (20 [...] Start: 10-30-2023 take 1 capsule by mo ut once daily tamsulosin (Flomax) 0.4 MG 24 [...] Ken MD on 11/06/2024 9:33 AM Normal [facility] CBC (INCLUDES DIFF/PLT)on Basophils (Bld) [#/Vol] 0.039 10*3/uL Normal 0-200 [facility] Comment on above: Performed By: #### 1 0231, 9452 #### [facility] [address] [place] [address] Engineering Project Manager: Naya Guerra #### 7600 #### [facility] [address], [address] [place] [address] Engineering Project Manager: Iron Nicole MD Basophils/100 WBC (Bld) 0.8 % Normal [facility] Comment on above: Performed By: #### 1 0231, 4389 #### [facility] [address] [place] [address] Engineering Project Manager: Naya Guerra #### 7600 #### [facility] [address], [address] [place] [phone] Engineering Project Manager: Iron Nicole MD Eosinophils (Bld) [#/Vol] 0.23 10*3/uL Normal 15-500 [facility] Comment on above: Performed By: #### 1 0231, 6399 #### [facility] [address] [place], [place] [id number] Engineering Project Manager: Naya Guerra #### 7600 #### [facility] [address], [address] [place] [address] Engineering Project Manager: Iron Nicole MD Eosinophils/100 WBC (Bld) 4.7 % Normal [facility] Comment on above: Performed By: #### 1 0231, 6399 #### [facility] [address] [place], [place] [id number] Engineering Project Manager: Naya Guerra #### 7600 #### [facility] [place] [address] Engineering Project Manager: Iron Nicole MD Erythrocyte distribution width (RBC) [Ratio] 12.8 % Normal 11.0-15.0 [facility] Comment on above: Performed By: #### 1 023, 6399 #### [facility] [address] [place] [address] Engineering Project Manager: Naya Guerra #### 7600 #### [facility] [place] [address] Engineering Project Manager: Iron Nicole MD Hematocrit (Bld) [Volume fraction] 40.0 % Normal 38.5-50.0 [facility] Comment on above: Performed By: #### 1 023, 6399 #### [facility] [address] [place] [address] Engineering Project Manager: Naya Guerra #### 7600 #### [facility] [place] [address] Engineering Project Manager: Iron Nicole MD Hemoglobin (Bld) [Mass/Vol] 13.1 g/dL Low 13.2-17.1 [facility] Comment on above: Performed By: #### 1 023, 6399 #### [facility] [address] [place], [place] [id number] Engineering Project Manager: Naya Guerra #### 7600 #### [facility] [address], [address] [place] [address] Engineering Project Manager: Iron Nicole MD Lymphocytes (Bld) [#/Vol] 1.715 10*3/uL Normal 850-3900 [facility] Comment on above: Performed By: #### 1 0231, 6399 #### [facility] [address] [place] [address] Engineering Project Manager: Naya Guerra #### 7600 #### [facility] [address], [address] [place] [address] Engineering Project Manager: Iron Nicole MD Lymphocytes/100 WBC (Bld) 35.0 % Normal [facility] Comment on above: Performed By: #### 1 230, 6399 #### [facility] [address] [place] [address] Engineering Project Manager: Naya Guerra #### 7600 #### [facility] [address], [address] [place] [address] Engineering Project Manager: Iron Nicole MD MCH (RBC) [Entitic mass] 31.7 pg Normal 27.0-33.0 [facility] Comment on above: Performed By: #### 1 023, 6399 #### [facility] [address] [place], [place] [address] Engineering Project Manager: Naya Guerra #### 7600 #### [facility] [address], [address] [place] [address] Engineering Project Manager: Iron Nicole MD MCHC (RBC) [Mass/Vol] 32.8 [...] By: #### 1 230, 6399 #### [facility] [address] [place], [place] [id number] Engineering Project Manager: Naya Guerra #### 7600 #### [facility] [address], [address] [place] [address] Engineering Project Manager: Iron Nicole MD MCV (RBC) [Entitic vol] 96.9 fL Normal 80.0-100.0 [facility] Comment on above: Performed By: #### 1 230, 6399 #### [facility] Engineering Project Manager: Naya Guerra #### 7600 #### [facility] [place] [address] Engineering Project Manager: Iron Nicole MD Monocytes (Bld) [#/Vol] 0.627 10*3/uL Normal 200-950 [facility] Comment on above: Performed By: #### 1 230, 6399 #### [facility] [address] Engineering Project Manager: Naya Guerra #### 7600 #### [facility] [place] [address] Engineering Project Manager: Iron Nicole MD Monocytes/100 WBC (Bld) 12.8 % Normal [facility] Comment on above: Performed By: #### 1 230, 6399 #### [facility] [address] [place], [place] [address] Engineering Project Manager: Naya Guerra #### 7600 #### [facility] [place] [address] Engineering Project Manager: Iron Nicole MD Neutrophils (Bld) [#/Vol] 2.288 10*3/uL Normal 8932-8177 [facility] Comment on above: Performed By: #### 1 230, 6399 #### [facility] [facility] [address] Engineering Project Manager: Naya Guerra #### 7600 #### [facility] [address], [address] [place] [address] Engineering Project Manager: Iron Nicole MD Neutrophils/100 WBC (Bld) 46.7 % Normal [facility] Comment on above: Performed By: #### 1 0231, 6399 #### [facility] [address] Engineering Project Manager: Naya Guerra #### 7600 #### [facility] [address], [address] [place] [address] Engineering Project Manager: Iron Nicole MD Platelet mean volume (Bld) [Entitic vol] 8.2 fL Normal 7.5-12.5 [facility] Comment on above: Performed By: #### 1 0231, 6399 #### [facility] [address] Engineering Project Manager: Naya Guerra #### 7600 #### [facility] [place] [address], [address] [place] [address] Engineering Project Manager: Iron Nicole MD Platelets (Bld) [#/Vol] 215 10*3/uL Normal 140-400 [facility] Comment on above: Performed By: #### 1 0231, 6399 #### [facility] [address] [place], [place] [id number] Engineering Project Manager: Naya Guerra #### 7600 #### [facility] [place] [address] [address] , [address] [place] [address] Engineering Project Manager: Iron Nicole MD RBC (Bld) [#/Vol] 4.13 10*6/uL Low 4.20-5.80 [facility] Comment on above: Performed By: #### 1 0231, 6399 #### [facility] [address] [place], [place] [id number] Engineering Project Manager: Naya Guerra #### 7600 #### [facility] [address] , [address] [place], [place] [phone] Engineering Project Manager: Iron Nicole MD WBC (Bld) [#/Vol] 4.9 10*3/uL Normal 3.8-10.8 [facility] Comment on above: Performed By: #### 1 0231, 6399 #### [facility] [address] [place], [place] [id number] Engineering Project Manager: Nyaa Guerra #### 7600 #### [facility] [place] [address], [address] [place], [place] [phone] Engineering Project Manager: Iron Nicole MD [facility] 10-31-2024 Albumin [Mass/Vol] 4.3 g/dL Normal 3.6-5.1 [facility] Comment on above: Performed By: #### 1 0231, 6399 #### [facility] [address] [place] [address] Engineering Project Manager: Naya Guerra #### 7600 #### [facility] [place] [address] [address] , [address] [place] [address] Engineering Project Manager: Iron Nicole MD Albumin/Globulin [Mass ratio] 1.9 {ratio} Normal 1.0-2.5 [facility] Comment on above: Performed By: #### 1 0231, 6399 #### [facility] [address] [place] [address] Engineering Project Manager: Naya Guerra #### 7600 #### [facility] [place] [address] [address] , [address] [place], [place] [phone] Engineering Project Manager: Iron Nicole MD ALP [Catalytic activity/Vol] 52 U/L Normal 35-144 [facility] Comment on above: Performed By: #### 1 0231, 6399 #### [facility] [address] [place], [place] [id number] Engineering Project Manager: Naya Guerra #### 7600 #### [facility] [place] [address], [address] [place] [address] Engineering Project Manager: Iron Nicole MD ALT [Catalytic activity/Vol] 17 U/L Normal 9-46 [facility] Comment on above: Performed By: #### 1 0231, 6399 #### [facility] [address] [place], [place] [id number] Engineering Project Manager: Naya Guerra #### 7600 #### [facility] [address], [address] [place] [address] Engineering Project Manager: Iron Nicole MD AST [Catalytic activity/Vol] 24 U/L Normal 10-35 [facility] Comment on above: Performed By: #### 1 0231, 6399 #### [facility] [address] Engineering Project Manager: Naya Guerra #### 7600 #### [facility] [address], [address] [place] [address] Engineering Project Manager: Iron Nicole MD Bilirubin [Mass/Vol] 0.6 mg/dL Normal 0.2-1.2 [facility] Comment on above: Performed By: #### 1 0231, 6399 #### [facility] [address] [place] [address] Engineering Project Manager: Naya Guerra #### 7600 #### [facility] [address], [address] [place] [address] Engineering Project Manager: Iron Nicole MD BUN/CREATININE RATIO SEE NOTE: Normal 6-22 [facility] Comment on above: Result Comment: Not Reported: BUN and Creatinine are within reference range. Performed By: #### 1 0231, 6399 #### [facility] [address] [place] [address] Engineering Project Manager: Naya Guerra #### 7600 #### [facility] [address], [address] [place] [address] Engineering Project Manager: Iron Nicole MD Calcium [Mass/Vol] 9.2 mg/dL Normal 8.6-10.3 [facility] Comment on above: Performed By: #### 1 023, 6399 #### [facility] [address] [place], [place] [id number] Engineering Project Manager: Naya Guerra #### 7600 #### [facility] [address], [address] [place] [address] Engineering Project Manager: Iron Nicole MD Chloride [Moles/Vol] 100 mmol/L Normal 98-110 [facility] Comment on above: Performed By: #### 1 0231, 6399 #### [facility] [address] [place], [place] [id number] Engineering Project Manager: Naya Guerra #### 7600 #### [facility] [place] [address] Engineering Project Manager: Iron Nicole MD CO2 [Moles/Vol] 29 mmol/L Normal 20-32 [facility] Comment on above: Performed By: #### 1 230, 6399 #### [facility] [address] [place], [place] [id number] Engineering Project Manager: Naya Guerra #### 7600 #### [facility] [place] [address] Engineering Project Manager: Iron Nicole MD Creatinine [Mass/Vol] 1.17 mg/dL Normal 0.70-1.22 [facility] Comment on above: Performed By: #### 1 230, 6399 #### [facility] [address] [place] [address] Engineering Project Manager: Naya Guerra #### 7600 #### [facility] [place] [address] Engineering Project Manager: Iron Nicole MD GFR/1.73 sq M.predicted among non-blacks MDRD (S/P/Bld) [Vol rate/Area] 60 mL/min/{1.73_m2} Normal > OR = 60 [facility] Comment on above: Performed By: #### 1 0231, 6399 #### [facility] [address] [place] [address] Engineering Project Manager: Naya Guerra #### 7600 #### [facility] [address], [address] [place] [address] Engineering Project Manager: Iron Nicole MD Globulin (S) [Mass/Vol] 2.3 g/dL Normal 1.9-3.7 [facility] Comment on above: Performed By: #### 1 0231, 6399 #### [facility] [address] [place] [address] Engineering Project Manager: Naya Guerra #### 7600 #### [facility] [address], [address] [place] [address] Engineering Project Manager: Iron Niocle MD Glucose [Mass/Vol] 97 mg/dL Normal 65-99 [facility] Comment on above: Result Comment: Fasting reference interval Performed By: #### 1 230, 6399 #### [facility] [address] [place] [address] Engineering Project Manager: Naya Guerra #### 7600 #### [facility] [place] [address] Engineering Project Manager: Iron Nicole MD Potassium [Moles/Vol] 4.9 mmol/L Normal 3.5-5.3 [facility] Comment on above: Performed By: #### 1 023, 6399 #### [facility] [address] [place] [address] Engineering Project Manager: Naya Guerra #### 7600 #### [facility] [address], [address] [place] [address] Engineering Project Manager: Iron Nicole MD Protein [Mass/Vol] 6.6 g/dL Normal 6.1-8.1 [facility] Comment on above: Performed By: #### 1 0231, 6399 #### [facility] [address] [place] [address] Engineering Project Manager: Naya Guerra #### 7600 #### [facility] [address] , [address] [place], [place] [phone] Engineering Project Manager: Iron Nicole MD Sodium [Moles/Vol] 135 mmol/L Normal 135-146 [facility] Comment on above: Performed By: #### 1 0231, 6399 #### [facility] [address] [place] [address] Engineering Project Manager: Naya Guerra #### 7600 #### [facility] [address] , [address] [place] [address] Engineering Project Manager: Iron Nicole MD Urea nitrogen [Mass/Vol] 21 mg/dL Normal 7-25 [facility] Comment on above: Performed By: #### 1 0231, 6399 #### [facility] [address] [place] [address] Engineering Project Manager: Naya Guerra #### 7600 #### [facility] [place] [address] [address] , [address] [place], [place] [phone] Engineering Project Manager: Iron Nicole MD LIPID PANEL, [facility] 10-21 Cholesterol [Mass/Vol] 158 mg/dL Normal <200 [facility] Comment on above: Order Comment: FASTI NG:YES FASTING: YES Performed By: #### 1 0231, 6399 #### [facility] [address] [place] [address] Engineering Project Manager: Naya Guerra #### 7600 #### [facility] [address] , [address] [place] [address] Engineering Project Manager: Iron Nicole MD Cholesterol in HDL [Mass/Vol] 45 mg/dL Normal > OR = 40 [facility] Comment on above: Order Comment: FASTI NG:YES FASTING: YES Performed By: #### 1 0231, 6399 #### [facility] [address] [place], [place] [phone] Engineering Project Manager: Naya Guerra #### 7600 #### [facility] [address], [address] [place], [place] [phone] Engineering Project Manager: Iron Nicole MD Cholesterol in LDL [Mass/Vol] [...] of LDL-C. Jaycob SS et al. SUSAN. 2013;310(19): 6949-8700 (http://education.[employer]/faq/OWB569) Performed By: #### 1 0231, 6340 #### [facility] [address] [place] [address] Engineering Project Manager: Naya Guerra #### 7600 #### [facility] [address], [address] [place], [place] [phone] Engineering Project Manager: Iron Nicole MD Cholesterol.total/C holesterol in HDL [Mass ratio] 3.5 {ratio} Normal <5.0 [facility] Comment on above: Order Comment: FASTI NG:YES FASTING: YES Performed By: #### 1 0981, 6338 #### [facility] [address] [place] [address] Engineering Project Manager: Naya Guerra #### 7600 #### [facility] [address], [address] [place], [place] [phone] Engineering Project Manager: Iron Nicole MD NON HDL CHOLESTEROL 113 mg/dL (calc) Normal <130 [facility] Comment on above: Order Comment: FASTI NG:YES FASTING: YES Result Comment: For patients with diabetes plus 1 major ASCVD risk factor, treating to a non-HDL-C goal of <100 mg/dL (LDL-C of <70 mg/dL) is considered a therapeutic option. Performed By: #### 1 0231, 6399 #### [facility] [address] [place] [address] Engineering Project Manager: Naya Guerra #### 7600 #### [facility] [address] [place] [address], [address] [place] [address] Engineering Project Manager: Iron Nicole MD Triglyceride [Mass/Vol] 99 mg/dL Normal <150 [facility] Comment on above: Order Comment: FASTI NG:YES FASTING: YES Performed By: #### 1 0231, 6399 #### [facility] [address] [place] [address] Engineering Project Manager: Naya Guerra #### 7600 #### [facility] [address], [address] [place] [address] Engineering Project Manager: Iron Nicole MD XR Pelvis 1 or 2 [facility] Result: 01/16/2024 AP pelvis demonstrate well healing healing right pubic rami fracture and healing left acetabulum fracture in acceptable alignment with increased callus formation. No signs of displacement. Impression: Healing right pubic rami and left acetabulum fracture. Lita ST [employer] Radiology Study observation (narrative) [employer] XR Pelvis 1 or 2 [facility] Result: 12/19/2023 AP pelvis demonstrate healing right pubic rami fracture and healing left acetabulum fracture in acceptable alignment with increased callus formation. No definitive union of right pubic rami fracture. No signs of displacement. Impression: Healing right pubic rami and left acetabulum fracture. Lita ST [employer] XR Pelvis 1 or 2 [facility] By: Enrique Rutherford on 12-21-2023 [employer] Work Phone: XR Pelvis 1 or 2 [facility] Study observation (narrative) [employer] XR Pelvis 1 or 2 [facility] Result: 11/23/2023 AP pelvis demonstrated stable right pubic rami fracture and healing left acetabulum fracture in acceptable alignment. No signs of displacement Impression: Stable right pubic rami and left acetabulum fracture. Lita Silvestre APRN-DARLENE [facility] XR Pelvis 1 or 2 ViewsOrdere d By: Enrique Rutherford on 11-24-2023 [facility] [employer] Work Phone: XR Pelvis 1 or 2 [facility] Radiology Study observation (narrative) [facility] Provider Orderson 07-28-2021 Provider Orders [id number] [facility]-09-2021 Consent Forms [id number] [facility] Preoperative Recordon 0 07-02-2021 [facility] Preoperative Record MAG[facility] Pre-Op Record Summary Primary Physician: Enrique Rutherford DO Finalized Date/Time: 07/02/21 15:05:59 Pt. Name: ENRIQUE MIKEO.B./Sex: 1935 MALE Med Rec #: [id number] Physician: Enrique Rutherford DO Financial #: [id number] Pt. Type: O Room/Bed: [facility] Admit/Disch: 06/21/21 05:54:00 - 06/22/21 12:10:00 Institution: [...] Signed By: Isabela Soliman RN 07/02/21 15:05 [facility] Coding Summaryon 06-28-2021 Coding Summary [employer]Base 64 TwtstlxmTJz8rUg+PGhl YWQ+XY3HWQSwZ82qgAXz fM8NU8zWXO8NQLPUTCOJ NC7HPB4dxEV6XCrdA2Xw biAv ImsphZCcGL30DXl2TJE1 rWnvVKybnJ3peVIgY4u4 VdWnJD18kC34TOdxUDUv MkG0HcYfbmlvnIAo Y5mgIxVxcFPnHej+PHRh YmxlIHdpZHRoPScxMDAl GpBmwJxaNT5gRz3dQRSh LWNvbGxhcHNlOiBj n1wkNBQhUJmlTY5axMbv U4OehDH6UOJcu6t5Sv73 dHI+XRWwZZA7dBkvMQvm i790ExDyl5hyPET8 qYUvENxfQBD9B74lh3G3 LGOsZMUyHUX6aSS8oE1f kFgzvmmgB9NwjFOcCjP2 GIG2vVIbqO9ldIkt zpqjkN8vHpu+B46SJJ8K MMMVXI4MPoz5R8YcLtog dHI+RS28KXYiMC35aAJg xCUuy9jtmPa1NxMs IERkRAU3tMzuFZwkg1Gy YMCcO35ygGUlk1G1GNOp nSjgtTXaYlBkxPA9uB1y XTcngivzw8ctmhta Awpex2mapa80eQ93Z89y LMhhZZAoSLH2VGBpWNFk qCqwgi3tnS6bEj3+IDxj x3amt5oejWf6LkZa DEQwyhQchBcmMTB0q6Fm Ok51G7VguIoim9HyPnk7 ix52eUGeu3A2rQG5OSke HYJngF7zQPrvIiD6 FQKxEmBqkM48mPGhRPpu Zf2gvWfjcSzjTP7iRXLc yuctXGKceH9uAXLorSNe sIyoOR2vIFLmienp f203OtWoVDO9HOEcaIBk B6DhcB7aRtHaTAHkUNIk O5BzkDSqYNiyA729NOdh HlP9HISzejBfJ1Ii KDNohGpcUjR5n8V1Ua3B v8UnbvwmRNS9XYbtHFI8 FdK2NsHmXmB4Y9NuFwh8 BMLfsWjmRS0vC1Vw OCCfkkfdgrjvgLA6SIWs QXZrkH09lOKgCUpaRt7i d1L6e767RIRnBESmnQ01 Nm0suQkmBOPonKAC kS5bfwrxk7qagbnoFhJi TJPvURs2CIu2LUYdtRuk IaOoEES1WsS5ZZK0aZOj nZ4gzTwcqmeuuI2f Oyc+Z45wuE0vEGC7NKP5 mxqqGPFzthGvBP89VN63 W8KkDjzujBXwvTK+PGRp esRqhCfvRS6pItGy z6spd4BwHHlrS2DcOCXw KFziEjs7BDMeKPR2mMF2 pL8bRHMsULael7C2sBR5 X5SlopQffj0zl9es BMBtXGikZ36dmKMyl6E9 ILTqpCE5TRSixWrtNrRf sM12Nhi+DQMvrHrmx3Wo Kpiza9vlp6ozuMy5 IjMwJSIgdmFsaWduPSJ0 e0EaCv83R04yXSqxYMPa IKRzLPNiQQBekIefvl1l sJ6dCz3+PGNvbCB3 gQA1pZ1eJKJoQdE3THnf P657HiZrvMYqVwtib3ka q7uwlEc4BxUiBNEnaqMj hRgrZQF6y8FdAa46 B71yURbwZOGtOMJzZQAv ZJWwkApqub0snD0eKs5+ ZY0tg6nknm96bT34eZC+ DVOlEZR5zTupGJhc SLVrvS2pYYwhVwS8PEQj IdFbtO93lZUjJVrhTj1v lQmdjOabUE8sJLYjupsa j531ZhEid9bdULKp lOXyRRlxPVL0K78tl4G8 DLEtFANlQKJ2wVT8uR7s bGlnbjogbGVmdDsgdmVy pEeoEZqgJSyzH920 IHRvcDsnPlBhdGllbnQg QlHxZNu1U5QdUpo2PTGa dBuhZZ2qpUBuTLqvKo1s rOhpuUdfHI0qGDXj kryfq387JgTbm3yjSPUs cBSnMErcIGE4G71hk9O8 CAPqJASaNKH2cTQ0aN0i bGlnbjogbGVmdDsg ghSrlVveNWhqUZnkH069 IHRvcDsnPkJpcnRoIERh rYS3TT31QS84qJMgk0A7 eLS1W2ChVNYzahxa iuqeeVG4LAZmIVBdjT74 Aj3fpXdtBm8bURPvBKG9 INJnsUSbT9KyfE4zUzIm GLAwGJLlA8HrpPCo KHduN349NWyiJfI5NDYg dbNiR4JdZPKovDzrRyA3 j3Z9Eh4FH8Z5GX59QV03 rEXah4L4rQT2G0Zm AQCbrihehgyeuHV4XENh JSRfrA92Lw2frXjeDp0s BEPyMKD5XHHwyDYaI1Lb hC5gQbBbOYTdUCIc Q4AqzXMsDXowN665IWlp WyE0EYTruyQhL9FqXJJr yWteWaK0n9U9Rf3IUNu6 KM47ZO92xSZbb5N2 mOY1M5NvDADdcrowaakh vYD1RFZoPPWavI96Kh9g dZibFa7cVIWiDXY8XOAq zBJaF7DglB9fYrMo OYWsVYYbC5PhwLXyNLkv N648CLihFuD1ATKgrgEm P2IiQYJzlLhoZuB3m0F9 Di8JSODiRO44RMY7 kGE1GO70BI91J0QhUkpe dGFibGU+PHRhYmxlIHdp ZHRoPScxMDAlJyBzdHls OB3yUa3oLRTkNRSd rEzmbHWhLvHyh2ulSVRt XMoaCQ0plXolY5FcjMO8 EGGfy0z0Es00X11oC3Rw dXA+EALpnBM3bAB3 vG0mHmAyBjR3MCaxV474 ArBsvGBfZgnvl9alr0is dKw2XnU5NVUwrmQhnDjw CEG2o8VlKp05V11o IHdpZHRoPSIxNSUiIHZh fUxirf0vtO5iLn6+PGNv eET5hIT5cG2aLmPdMjF7 CKgqS975MbYduRKj Mucub7vds6kogVy9HwGc JQLwetDfgWtdOMY0r4Ya Bz06N3ZmhHavn8MtSiy0 we66iIKjd1Q6hHS6 N1UkQKSayriwkRBmlFxt QF3pSZXrdcsyRQXozJ0j LJVhI5j7BnDkUtL3LRtt L2UvuhW3NJJsnJHk JCmuBOT7I91ri0C8KKTg WKCjVBD2sTZ5nN8wiMev bjogbGVmdDsgdmVydGlj PYcnBLrfB483CFXv nHunRCRxyX9pJXMviSHg pLslZS7pJBMnpozyTpDW FoAuLGqZGRLPSVN8W2Dc Ode2SIFyeZpiCP1c mQQlIMseNs7juCmlmJri GT6hWOYuucxlRLPwtZ2g CGCvpEPpaSoeRK7wRCQu xjnja505FtUcDOT2 QSIiiEPbJ2PndT5mPoZd DFGwQQKdH0HwhDZjXOgu V271LXjkGyC5FDCdtcCz I7KeNBHutHnhGjQ6 e1Z9Hc4zFu2gQN0mNUD3 YP82WA79uSMit0Y9pCO0 E4FcWDEjusrcenllfCK8 PRChNHOujF44xHVt YNxhMd3ig2X1l172OVOp LEPcqP72Pn4pwIikAVNb pCAQdK1oymbus0wkqdqm OmVpOUXpQNy7CCj4 IJNquDumXgImNUB5VgN7 WWD4nZSpmE1dlWzwmvcg aT9oLrs+ODQgWWVhcnM8 I6NuStp0EKTddHgz DM9moDBaHVgdJy0enQvx dYidQV2wFTCkusjmDCYi tQ1lPQSjtYQzxTtnXU0s HMQjlbejw389OzYd YKV3NJRliLMzA4CtyL4u SuIlDWBaMDOkR8IxuVUm XKzvI765UUpwOdW5JXDn fjXxK6PsFGZwoSyj ZoN7a1Q9Rz6BXWgQCV78 DE93bNWpm9J1uAR2D0Yk NHYtkavzvwzrdCA7NKUw NASevY12aJUwBJbv Mk8gp2H1h586RPAiAAVw aQ45Ve1ajXbdGFJxtDTQ jB9whmrlk2mhkqdcUaDg HOSjUWj8XAd2ZJQf cYynKjNxPHA6AaI1EGM6 aHSeaB3ncAetserkyC6k Oyc+E2JuIKV4YPQdp793 L3WfSjvmrFE+PC90 NBJuAT64jYInfDScf3sf sTs3ZlEhDTYqHSG4aZhp SAsds6HmTOSdP94fnZRv v7K0ZYVrmHvgqUAf PnPnkCC4mJ3oNHboveqv s3qwiyjoNhdyw9ksgo12 qA41Y18mTBgfSUBjBAMz KKCoPJEpgZgkmd9y vW9zPr9+XYMxpUI2iLP9 jD0qKzBcTrY2CIdxD591 PbLaaRVwAyfof4dlx4dw hFo2MaPvUKUxlkTj lXzqAPU2i4JrTk93Q16e IHdpZHRoPSIyMCUiIHZh pDlart0lkR7lSq0+PC9j v2djet60rO62cOC+ GUJxSAJ1mCzbXArxUGTk mH8kOUvfWoO0KXTbFvKs cC62fAQhXJitAd7ewSmc sIkbYN8yFDCnckzz p475WgOzi8jvHHEsxFBg QZtnSOC4K98qa1W4TCCg FSJjFDE5wDC9hH7gfZym bjogbGVmdDsgdmVy jDlqHAnlIHdpV480VYGg hBwrNmEhbTKaC2laueRX JY8cPuxxtNV+PHRkIHN0 oPlvBFmxYZOlpY0v TMZiX5w5WtXpXoX9GYkz H1JkwiR8ZZWwdQDiMPEn fSQSxE5krgznn4lnmujj EoJnGPKuMCb6VGa9 WWEhvJskLuZsIBA1QsN6 EZE7bADklC1kfOujbvfj lT4xVau+RklOOjwvdGQ+ EKEfQCI0qRvdTAmh HGLdnU5cPGGtT4h7OgPd WsG7NZfgA1SbdaH9LUXa bSFvZRIovITNcC4jcpkc p7sqgznrPeOsCFWl SSe0AOh3UYPhcYrqKaYi MCG0OdQ2ULS2yOJevR4p nMimzxchoE7wZcy+TVJO OjwvdGQ+PHRkIHN0 fGvgRVjbRHVkhU9oJLDm W5a2SrEnVeI7KEfjK4Ke ekR1YDRslIClRLKiyBDW kN2vngcsv4fakrao IvJvYVWwLHe6IHe4CTUo sAbyKoPoZYV0YmE9XMP5 tXBxeV3ymFxznehdzY8g Oyc+XRE6LNI5LG20 ZZ27J5HaYuhzzGGihWA+ PHRhYmxlIHdpZHRoPScx VIXyIxOqkAxrQK1eKl9k ZGVyLWNvbGxhcHNl OiB (more content not included)... [facility] Consent Formson 06-23-2021 Consent Forms [id number] [facility] Dis[facility] Instructions [id number] [facility] Tele[facility] Stripson Telemetry Strips [id number] [facility] Consultation/Specialist Note on 06-22-2021 Consultation/Specia [...] on: 06/22/2021 07:09 EDT] BIB SCHMIDT [facility] Inpatient Patient Summaryon 06-22-2021 Inpatient Patient Summary [place] [id number] Patient Discharge Instructions Name: ENRIQUE MIKE : 1935 Patient Address: [address] [place] [id number] Primary Care Provider: Name: JERMAIN MENCHACA MD After you are discharged if you find you have any questions, please, call [phone] ext [phone] to speak to a nurse. Discharge Diagnosis: [...] drug addiction problems; contact the [facility] 12/09 Crisis Hotline -Text 4HWMQ ot 067768. If you received any narcotics, sedation, or [...] business decisions or sign any legal documents [facility] would like to thank you for allowing us to assist you with your healthcare needs. The following includes patient education materials and information regarding your injury/illness. ENRIQUE MIKE has been given the following list of follow-up instructions, prescriptions, and patient education materials: Follow-up Instructions With: Address: When: Enrique Rutherford [address] [place] [address], [address] [place] [address] [facility] (1) 06/29/2021 10:45 AM Medications [...] list. Medication mariana (more content not included)... [facility] MAGR Postoperative Record MAGR Phase II Record Summary Primary Physician: Enrique Rutherford DO Finalized Date/Time: 06/22/21 07:37:50 Pt. Name: ENRIQUE MIKE/Sex: 1935 MALE Med Rec #: [id number] Physician: Enrique Rutherford DO Financial #: [id number] Pt. Type: O Room/Bed: 221/1 Admit/Disch: 06/21/21 [...] Signed By: Karla Moss RN 06/22/21 07:37 [facility] Progress Note - Nurseon Progress Note - Nurse Pt discharged to home. Taken to awaiting car via wheelchair. Belongings sent with pt. [Electronically Signed on: 10/06/2021 14:53 EDT] Emily Kennedy RN [Verified on: 10/06/2021 14:53 EDT] Emily Kennedy RN [facility] Progress Note - Nurse Surgical dressing [...] on: 10/06/2021 14:53 EDT] Emily Kennedy RN [facility] Progress Note - Nurse Shoulder block wearing off. Pt able to move his wrist and forearm. unable to wiggle fingers but tactile sensation intact. Circ checks WDL. Pain level 4/10. 5mg Oxycodone given. [Electronically Signed on: 10/06/2021 14:53 EDT] Emily Kennedy RN [Verified on: 10/06/2021 14:53 EDT] Emily Kennedy RN [facility] Anesthesia Noteon 06-21-2021 Anesthesia Note Patient: [...] on: 06/21/2021 11:47 EDT] Rod Ann DO [facility] Anesthesia Note Patient: ENRIQUE MIKE Age: [...] = 50 mL, 100 mL/hr, IV Piggyback, Program Director [employer] LR 1,000 mL: 20 mL/hr, IV Lidocaine 1% injectable solution: 0.1 mL, ID, Once, PRN: Other (see comment) tranexamic acid: 1,000 mg = 100 mL, 300 mL/hr, IV Piggyback, Program Director [employer] tranexamic acid: 1,000 mg = 100 mL, 300 mL/hr, IV Piggyback, Program Director [employer] Documented Medications Documented Aspir-Low 81 mg oral [...] (basal cell carcinoma), face / SNOMED CT 4728906673 / Confirmed Hypertension / SNOMED CT 4655526585 / Confirmed, Active Problems (2) BCC (basal cell carcinoma), face Hypertension Histories Family History: Entire family history is negative. 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 Back fusion (681357252). Chest tube insertion ([id number] [facility]). Comments: 06/04/2021 9:17 EDT - Elvi Barber RN left lung 1998 Inguinal hernia ([id number]). Rotator cuff (78469011). Hammer toe (583717909). Social History Electronic Cigarette/Vaping Assessment Electronic Cigarette Use: Never. Alcohol Assessment Beer Comment: benoit pulido Tobacco Assessment Former tobacco user Tobacco Use:. Substance Abuse Assessment Substance use: Never. . Social & Psychosocial Habits Alcohol 06/04/2021 Type: Beer Comment: benoit pulido - 06/04/2021 09:18 - [...] / Management Results review ECG interpretation Plan [place] [employer]#(A SA) physical status classification: [...] on: 06/21/2021 07:57 EDT] Rod Ann DO [facility] MAGR Intraoperative Recordon 06-21-2021 MAGR Intraoperative Record MAGR Intra-Op Record Summary Primary Physician: Enrique Rutherford DO Finalized Date/Time: 06/21/21 09:51:01 Pt. Name: ENRIQUE MIKE/Sex: 1935 MALE Med Rec #: [id number] Physician: Enrique Rutherford DO Financial #: [id number] Pt. Type: D Room/Bed: [facility] [...] Case Attendee Enrique Rutherford Jacquelyn RN [place] TURN DOWN WORKER/CSFAEliel TURN DOWN WORKER Role Performed Surgeon - Primary Aircraft Technician Surg Rn Time In 06/21/21 07:28:00 06/21/21 07:28:00 06/21/21 07:28:00 Time Out 06/21/21 09:16:00 06/21/21 09:43:00 06/21/21 09:16:00 Procedure Arthroplasty Shoulder Arthroplasty Shoulder Arthroplasty Shoulder Total Reverse(Left) Total Reverse(Left) Total Reverse(Left) Last Modified By: Brenda Constantino RN, Jacquelyn RN Burns, Jacquelyn RN 06/21/21 09:43:07 06/21/21 09:43:07 06/21/21 09:43:07 Entry 4 Entry 5 Entry 6 Case Attendee Vivian Newman Regina CSFA TURN DOWN WORKER Rod Ann DO TURN DOWN WORKER Role Performed Surg Rn Scrub Personnel Anesthesiologist of Record Time In [...] Entry 1 Ski (more content not included)... [facility] MAGR Intraoperative Record MAGR Intra-Op Record Summary Primary Physician: Finalized Date/Time: 06/21/21 07:33:10 Pt. Name: ENRIQUE MIKE D.O.B./Sex: 1935 MALE Med Rec #: [id number] Physician: Enrique Rutherford DO Financial #: [id number] Pt. Type: D Room/Bed: / Admit/Disch: 06/21/21 [...] Klaehn, Margaret RN Role Performed Anesthesiologist of Aircraft Technician Aircraft Technician Record Time In 06/21/21 07:09:00 06/21/21 07:09:00 [...] Flow Ra (more content not included)... [facility] Summary Primary Physician: Enrique Rutherford DO Finalized Date/Time: 06/21/21 10:37:04 Pt. Name: ENRIQUE MIKE/Sex: 1935 MALE Med Rec #: [id number] Physician: Enrique Rutherford DO Financial #: [id number] Pt. Type: D Room/Bed: [facility]/ Admit/Disch: 06/21/21 05:54:00 - Institution: PACU Case Times MAGR Entry 1 In PACU I 06/21/21 09:43:00 Discharge from PACU 06/21/21 10:28:00 I Last Modified By: Isabela Soliman RN 06/21/21 10:36:28 General Comments: Pt awake and oriented. VS stable. Transferred to room 221 via bed. Finalized By: Isabela Soliman RN Document Signatures Signed By: Isabela Soliman RN 06/21/21 10:37 [facility] Nutrition Noteon 06-21-2021 Nutrition Note Pt admitted for scheduled Lt shoulder surgery. Diet already advanced to a Regular, ate 100% of lunch, No wt hx available, denied any wt changes on avionics safety inspector assessment. 06/04 pre-op labs reviewed, mildly elevated BUN noted. Pt at high nutrition risk r/t age greater than 65yr, however, no foreseeable nutrition concerns at this time. To follow. [facility] Operative Report - Surgeon/P catalina 06-21-2021 [...] on: 06/21/2021 10:15 EDT] Enrique Rutherford DO [facility] Patient Handouton 06-21-[address] [...] or concerns, please call the office at [phone] -Follow up as scheduled [facility] Progress Note - Nurseon 05-0 Progress [...] on: 06/21/2021 14:30 EDT] Phyllis Kasper RN [facility] XR Shoulder 1 View Lefton XR Shoulder 1 View Left EXAM: XR Shoulder 1 View Left HISTORY: Status post Shoulder Replacement COMPARISON: None. TECHNIQUE: Single view FINDINGS: Normal alignment and unremarkable early postoperative appearance left shoulder arthroplasty. IMPRESSION: As above. Final Dictated by: Eliel Garvey V Dictated DT/TM: 06/21/21 4:52 Signed (Electronic Signature): Eliel Garvey V 06/21/21 4:54 pm Technologist: MARIELY BENITEZ [facility] Comment on above: Order Comment: barbara cabrera status post shoulder replacement Coding Summaryon 06-18-2021 Coding Summary HTMLBase 64 MrbwzenbRHi9tBp+PGhl YWQ+ML3BRLVvJ87wvDEr tC9XK7mBXA8FTCAAQMSG ZR4ATG3pmBU9ZObfD8Jl biAv MzjzhUSoCX61SKm0RMO1 xGgaMJmehB6xaRWlS5w9 WiYxWE33mM86QKrdNFGd UwQ7RxIcvcstkGCl R6dlRpQcpVYeQve+PHRh YmxlIHdpZHRoPScxMDAl CjCpuAeiYX1xVp2uDQHq LWNvbGxhcHNlOiBj b6ewSMYeUBpuMT8hiJms Q2KuiBI8FKIvv6t2Cw53 dHI+VJVlROQ0fRvxLYjp v291UaWvf1acFCY7 eRUaRGudNDC8X15zu8G5 EIJsOFBiRWZ6mWM6uS6a tHruhuzzJ0NfyFKwObU1 VCF0yYMvxK8hmNec anxgfJ3xVbb+J46RHT9H WVJCKW2BAuy0S0LbGpxb dHI+VT55EMAmRO72jURo tUOmt8ocbNl8RcTf SEIuCDI0iCswVBemb4Tm EKZtH27tiXYtx9T4HCJb jKejhMUgPaDytZB7tJ8m GZijrcwaq7xmzvxi Mfdxl0hvim59qK63L83g OAdoRTDhYNT9KOIeZHWl wNcwid0sgY4iTx8+IDxj l9exx0jlxPp5KyRx QZGmnwVlhByyJDH0r2Zn Hl76L1ZnzEaxk2YpXqb2 zk17hPTkn0F4wVN8GEhj JQUyeP0aYHxmKtQ7 WSPdVgTuvM43cTUkMAxj Hj9evQtqrRqxMA8yXWKi assnOOYcxV7mQIXoyDNs mWdqAC2dLVUyrlab r996WoSbXEI6QFFuoRLs K1VlxY6dYlQqNUDlYDKq O9JjqSQbEQnwW371PPqs QnV0SGZeepHvJ8Cu RQXunAknBiG8e7B7Rn5P b3HmwsodGBS3VDzcWSI1 LmA7SoWxEsS5A4VmWsv0 LPXbgJchOM1uR5Pv OBIaepnxwhncrFW1AUZe UULuhO17yHErVYjmCn3w x1W0a344AYKoEJMjzC91 Tt5jrBhjGFBkwYAA pO9qjrbuo5yxzcrqNmEb WNSjGAy7VYo3OYAcsUmc UbNzSVZ8YtV1WWT0gONi gU1hfPoidchygX7x Oyc+A60cgH3hTIA5SXS5 irdmPDXybwNvON36CI77 U1QxVbwmtPBwjOE+PGRp ylXddDpzHB6yAyBt a0bkd5XiSOabQ3OlATMh DVzfWzq1YIOmWBF5mEN3 pT3aLLMfURogo8C6lOI4 D2VabkThsc2ge9hs PIUvTBysH55qwLQen8S5 EAUivGM0FOTozZjdAaFc zG50Fkj+MDSfbQixy6Ha Ckfjr7ewe0xiiOr0 IjMwJSIgdmFsaWduPSJ0 k8CbOd19X22nXLyvZYFz WBSrHZEmHSSbpUdjut0o tZ5sQd5+PGNvbCB3 jRD1zR3dTNOjDkX3LZtf X389WpJbpXSnZurxr2tm q5btnTc7TlDsCBVfxfBf mAhwDTN2h3FwJp04 Q04iQHktBZHbDMAxTJIs IZXcaDvzaq9xtV5sNn1+ JF2wz4rxzx09eC44wEJ+ FASoYBE4mIrmHWfi WXFtoV0wZSgdLgJ9TNOq AoQxkX65pMJqMWzgTc3r jHiwfWxzWR2uTPYnvhwe m836MmUci1cvVEQs eICpLZhrKQL9X03nn7S0 HQZoNAOqFZW1xLW7iJ1j bGlnbjogbGVmdDsgdmVy rVlwWCsyWLrqW858 IHRvcDsnPlBhdGllbnQg GqIvDOg9N9HhXdr6WDJp tXtuBD5faAMqKJbdQf3w dCdyyPtfOP6eIFDv ukova178OjMqo8fdQZXk bOXoNFfuUVY0D65hw7E0 FKGeRPCzAFZ4rVX6tF5w bGlnbjogbGVmdDsg oiEfoEeqKKraDGtpE272 IHRvcDsnPkJpcnRoIERh tYN5AT42HD71kUQxs0X4 nLI4B0WtVMOnwuql jdgmaAR2JTVsVWGdzH18 Xw6xrPxaOb6gEWYpYAH3 QGQfvMOjT7XveO8rHxFw FDLnBEHnK8UlrMYp KKonD989RRybWaS5QFVv qrAiV8MsQFXzySolMxR0 f4Z4St4KW0K4UG98JC14 jYKzg1N9mFK8F9Vc QOGxshprzgfpnEH3OFWb ZXPpbN75My2ipYtdGs7h DCFeHAS0AFPphCLiI4Rq hF5gMkHfTZOdCOGa W4TwoFJzGNwqU288BNiu LeS9AGUivzGbM1DcTJUo xXqoMuQ6i5Y8Mv6HBSy5 EZ46UN52bOOni0H9 nAI8K0UnTWVqvclvrbxr nQU8BDDjHLKmoA85Bj3c uTfcMo9zPSAnMTJ8DIPq cYWwV5WcqL8bXtBq TINpVRJcF3SunHHyBLpk L542EKdcVqQ5XFOoawAs V5QxSWRodTwxYyR1a9A0 Fv4FDIDgVK80ERI4 kRC7LF57YI38C3OrNosc dGFibGU+PHRhYmxlIHdp ZHRoPScxMDAlJyBzdHls RB3yYk2bPBCoSREc pIogwSFeXgGkh5zxUJZq AYqnXM6rzZuyO9DrcKG9 QXSsy1d4Pb21F14eZ6Uk dXA+APSwkKL6kAF9 bQ6fKrMxRpQ3GFcbD115 FmPrkJXtXdofz7lyn9up eOa4UbL5IHJmkzAbnFak REK1c6VrVo40Y69i IHdpZHRoPSIxNSUiIHZh tXziaj1qpA1vQn3+PGNv yTJ1eDN9gD9sKkNgYeQ1 NYfvD176ZeQajPJo Hczbk6itv3bvqYv0JpXe KFEyshTyyRsoWFP6g3Cv Iw08M3DzkMocm7BfJjm0 hu47lVJmv7Y2cKI9 V9HyCAStzhehdHSkpUhn PU4gYXOurhlmRBAezZ2e ITHeZ9u8RsTpAuA1NIip P8AvhfW7MNHjqHTp PSlvYNB3B43ik7G3YZYw MCIiNWV2aAQ4pN7tkImi bjogbGVmdDsgdmVydGlj JIsaIZboU361WIZs hWvqTSDwoM3kUTNizJMd gYgqSG6lLRBvefwzDaYG WqYmMHeMDVIOQBZ0S7Gk Hze5SWOkrKszZH2j cZCaIVzcDx1jyGtiqZht UV7vXFJtdryyABBsmL3z AOPsiSLqiYndFD4cKWXj ivebk358YdYyXJK2 NZHdpNFxV9UnzK3mRkBd IBYfMBOlJ6EwdZTnJLeo X170RPokSxV0YSNzbyDw N0OiKWHhqRqqIuJ1 e8W1Qr9gBg0uMR0fSUF7 LB33JC60fJLvo7O8nCF2 X7FqPOOzzmwwfnaeaAT9 IYQdVTUsjQ45uCCy LWvtCc8qn8U1b963RCVo UJStvJ70Is7hwAbwKLGm oCCEfV4jflggq0cggjys PhStMSXaBMd3BEf5 RZPmyYufNzPaCAA3FqP5 XVG0eIDmwB9yqAkgsecv hS4mEoc+ODQgWWVhcnM8 S2QdEmc4JISqcAaq MA6lwOReTEpbOg7bnLgz pKqkWJ3fTLOfkgbsZTPx zB5dBWFzqJJvaMtaMX9v VSKchangm606HqWm JTV0JYGwsKGpD5YodN9s CbDbQSUaDFAcC9UveSDn OSwuM187JWraSeE6TRHx chKzN3CpJAXtrTdf IiX6c2B0My1FJWoPAA25 ON41mOKsq9G6hSP1M4Xu RJJrdhjspgnhkBX3ZHRk NQBohK78bSJzHSlc Ip7au2P3g899SSQhDQJp oQ95Hh2iqZonBRDosRNY uC8opvbwh9eqnaegOdGz PCGoFWl6SWi2OYDn xXsgPpWqNKJ9JgN7IHO4 tLInnH6duWflkobefO1r Oyc+O1B2H8WjKobfuAD+ CC64KMApJS91tMPa bGBfo8ulcGj6FqNbHTBt REB7uAieQHkdp8FgSANa H64qrOScf9N0VZFyvXom kBGoDzRdoAX3bA7b OAxyeobum5cjhbheXzmm u9tgyk21bL99H11fPJdo ZHRoPSIzMCUiIHZhbGln vi9ivK0eDp0+PGNv tGQ6fEJ0lK6gCqBlNsY9 XVtwX541HdPutIUwVnkb t8bbo9ldkZl2SvQcDBGr uiIzdTlcOBH7l1Hg Bv64M40iKCxuBVQpQEDo TIExZWAemYzcbt0wyB3n Ii8+GI5hk4tvto69hO07 dHI+QWToBAP6kCzb KRsbNERrfV6wUVgeAhW0 WUFkZyKtxT22oEOjFObo Me7uhSkaoNopGR2mDEHk hezop558FaJqk8ta FCVvoLFjHOwwNER1K65b m3L8HPMyGVGzLFE8uNW3 yS9zdFaqysgfcBYzbZuz dmVydGljYWwtYWxp Y225HBJtzEsqZbFpjJKk I4tllnWZEU1bCowcqIT+ WEKjOWL2vPivREauSZLt eK5cIQFlP1m4GgKj LsS0CPlnT4QdgcO7TGBv xKDzIGSxjKVAbD9wxxxh p4rrqsoyPhHkYBToQOk1 TRb6IMVmaBcjGpMl KPU7LvO0XXW1sEZkcW4s sMosauqhvB2qPug+RklO OjwvdGQ+FIMxSAB2rSvk REviFGBzgQ3tLZMj N8a5CpDxEmN5DTpwT0Af rnU9ORWrjMFxNJIogMOS uB6rlgtdg8vslhwaBuEq ATHhFEf3RIu5SOYh aEpxMvUcYFQ9FkJ1ALU2 nZLmlH1dpYpfroatjQ0z Oyc+TVJOOjwvdGQ+PHRk YHH1yDixAZaqZSUu bD8cPRXlL5l8PpTzUaB1 UVwjO1AmygF5CAEsqMNk GQRdkPUJnT3peizmr5di cjogIzAwMDAwMDt0 UFl3YSQynOjuPzMnKJQ4 IuM0NIJ1bKVbqZ6qhGwx vjhbwI4eOwi+DYF7XBE8 XW87LW81S6OiOrku dGFibGU+PHRhYmxlIHdp ZHRoPScxMDAlJyBzdHls JH5tCd3dTECwXAPxvWha vHGxDiLqu2fkUSTd ZTs (more content not included)... [facility] Progress Note - Nurseon 05-22 Progress Note - Nurse Pre-op call done, instructed to arrive @ 0600 on 06-21-21, NPO after midnight-verbalized understanding. [Electronically Signed on: 06/18/2021 09:26 EDT] Ayah Gracia RN [Verified on: 06/18/2021 09:26 EDT] Ayah Gracia RN [facility] 2019 Novel Coronavirus (CoVI D-19), BART LCon 06-17-2021 SARS-CoV-2 (COVID-19) RNA BART+probe Ql (Unsp spec) Not detected Invalid Interpretation Code Not Detected [facility] Comment on above: Order Comment: [id number] Result Comment: This nucleic acid amplification test was developed and its performance characteristics determined by [employer]. Nucleic acid amplification tests include RT- PCR [...] detected) result in this assay. Performed At: [address] [id number] Suzanne Durham PhD Ph:[phone] Performed By: #### 6 [id number] #### [facility] (DEFAULT) [address] [place] [address] Advance Directive Documentso n 06-07-2021 Advance Directive Documents [id number] #1.00OTGTIFF [facility] Coding Summaryon 06-07-2021 Coding Summary HTMLBase 64 JfquzgrcVYh9vRz+PGhl YWQ+PJ6ORJOtI52ggVEp pY7KO8aAAV5DGGTZQOHL VW7OWE9svIO1NVtkA1Kk biAv MbwyhZHgPP83PMt1QYJ8 tXcqXWtioN8ewFDmT6k4 ToPyEK98dO71NAtvWEUe XtT5JtVvhyvumMPe Z2mjNfBdfTVoGvf+PHRh YmxlIHdpZHRoPScxMDAl ZrZorZjpOP2mHo2tHXHh LWNvbGxhcHNlOiBj y6uaVHGrGLmhHD5cgJnf F7EkyVT4XJCfw8f6Cr98 dHI+BMVnFYZ6bFscOAco n080YpZcr1fpZOD3 qPKuWOloXEH2P34zo8I9 ITHvSYAuJNU6bKC7kV4q zXlwyypvA3TpuYJyBoR4 RNG6jFQhrB9dbXno wbtprY9lZhs+K95UHS3L PENEVQ1DUnl9E6CaRxpc dHI+PN27DILlHV86eKHb rIXbd3ykvIx4IwFy EMHaBVG7wAoeYJycj4Fe HKGhR73qrSLpm2K9TCQn qVxmbBQnRkEzyZO3zZ9h LPlctrtpy2lulour Qpopc9zsgp28hF19G04h DKwcBCQtNEN4VURxTXYt yVwsra8qgU5tQz7+IDxj g3vjs9vofZy2FgOr VGKxsbZghTvbDYH2h1Mc Pf48B6BdcCdgs4HbFjk5 bm39tPOnl8Y7oHL3JRfn QGIrkP1fWZdyLcW5 QYHqWgNkbY34aPXcQUcl Gy7deStxjLznZM8lFRFi hoceLHTitM3iFLZivVQy ySajUQ8yCUZqagvf v773DrSxAPA9PWIdoPAl M2YziT2dLtSsXBUmGDLt E9JasGEoXBifY204PAmp RkJ1RQHbigNsI7Yh NGVltJujYdH2f5W8Jp0Q m9IcojjcCSI2WZsmLXQ6 AyQ8BoMrYbS1J0KsOzc6 FFZjcAmwSP8eL9Hc LAYteddjwnxhsNB4FIKo FKAinS10kJLbWWwvDn4c s7G6h683GEStKYGnjU50 Gu2puFvnHXCcwTEI fL2rwscav7ietqtyYkOi UYCgKBw3ONs8UCWdvPhg ArOiFTD9AiK5JVD0qDJr xS1fuTwxmjqqwN9m Oyc+H67vrM8nCIO0CIK3 hlonLIZgptFoNI93SG05 U5CrKegznGAmvOD+PGRp efOogGflAN4eBpRg k1ick1BlPOjkX7BlXNHd APlkTvo2NUUmSYN0iND5 hW0vHSKkHIoll8D9hKL4 H3FxkwMwkq9qe6op BRNmOVnyT90yyQVar4Z2 FIIndCF6ZRRjxTafJqJw fA76Ehl+HXUjkAtir2Rp Jozmj4ybv0fgkZq9 IjMwJSIgdmFsaWduPSJ0 d9IeLp82Z08rBZlnSUFc HABqPLFkWETwgVybqq9v dP6dEe1+PGNvbCB3 wSD9zB9uNTVjPkU5QZmt I949DfVdfXLoZxgbg7qj y5iayDj9DeCaSJZxnjGy kAemBYW7b7YiJr46 N90bOGxdHEGgCUWoAYWb DDQncQumvr2rkX3gHs4+ HN0be3pcgg85kT38xPL+ RYUtIUH6zKudEEyj TJBbyY4nCRxgKeB4HGYd RhYgkF12gFSqDPvnTc6b kOhmwPcrFI4uUDSngtks p049VdExr0kgZOLp bIDiSSpvQMA7D43bm2K6 HURwCWJoLHQ7cJQ1cH5b bGlnbjogbGVmdDsgdmVy xKqzXHvtRIofZ411 IHRvcDsnPlBhdGllbnQg WxWsQRh8H8YaFed6DCKh fHyhCF3fhQZzHFziTu8m xMwyrDzeJY0wIRZi wvtqe170SzXkh9fpESBw ySEhHOszWNI0H22dq5I4 BGIcTTCvLEI0cMB3nN4t bGlnbjogbGVmdDsg nbDtsJkxUPgrVUhtO133 IHRvcDsnPkJpcnRoIERh oPN8CV26BO67nHBdy7I2 oRD5F4KgDPDkmnbp yqketVY4AMEhRGDtwP74 Dl6yyIrnKf8fNSLeIIX7 HUNwqMNvK0BvoA4nIaDo NJWyGJUbD0XwkTTi YKqvG216PIllZaZ5KKEs yfUwI3FoQZKkoYrcChL0 d1K0Xx1KU1P2BH51ER35 oMRuo9E5yXH9L1Tt GZZbcedbhsswmKD7NIUp PAXfdR97Yh9dbRlqJn4b OJLrYLP6IQYyuVNmL2Qy zR9xKcImXIYcCSRi V3SvgPTiTNhvZ007DQmf NeK1SWHnnuKrE4KoLJNt uQonVzK0v0N1Yo0JXPb1 LK43XB93mQBmh2O9 nGX8N9UqCQEkmidkvysr aCD2WONrITUxfJ95We9f vUheTj8wMQYxOFT8SUWv oUGuC7WidW7pDnJg DHEeKOWcH8HdeTJbKTwz F653VWbrWvU1XLQvpiAt L3XzIWCpxJcpUuI8f8L9 Od7YBGTiYS98YPO4 aNV1YG91VC98P4AkZtrp dGFibGU+PHRhYmxlIHdp ZHRoPScxMDAlJyBzdHls MQ2xBn8fCTGbCWAt zOwrsJVbNhBjp9beZNOl TZwlXY1mhBdeV6TomGY6 KLJze4r5Pk94N93qD1Iz dXA+KYVqqUL4fYY4 oX8pXpWuCeG1PQzdQ887 IgGtcYGxKqyqv3dfj7ej eOz5UpT4CZBeznBlwRrg UYS4i3NlQz76X99w IHdpZHRoPSIxNSUiIHZh oImtsa6laD2kDr1+PGNv nIH6vUI2uN2mCwUqJcB4 ANseB163LsSpkLLb Hscfe4cvq2nsuGb7ZxNv NFYuneWgvVfqDQX9e2Nk Xd24Q8DavPtvr3EySgw7 pg67jVRlr3U4gNN4 H0IbEDUdfztdcRNlzFrr KK5aFIWrnzaiHCYzuW9x QANvU3n5XoTjDlJ2BAft U6HacqX2SJJnkMWv VSwsCPW0D73vn6F8RIZo KQHzHKG0mYH3jS6lvAut bjogbGVmdDsgdmVydGlj YYzrUIwgW520GWDr uVmqMMQiiP2tMMBudMUi yTdwYH4wQLVpxhcpKiZH PoGeFYaUREVLPWB5V5Hz Juh6HVZpjLvgVG4y nAUcFPvoRe0esXnhnUdz GX9uDUEutochEJFodH7r HOAwaHMbwXaeVG8nXLFv fpcep167PtXjPPI6 BUZftQMdR9PpaP8wJeIq QJYtVEEmJ4PwbZHgVNrw V853WVqkPiC5EZWvgoSa A0BmXLFyiVpbFjD1 f7F0Xs2uRe4rBP1eYKF9 OM59EN76uHTqi4S5fEG9 V0GwVJEghjfljthsmND0 CAMqJRPahC17uXNa ELldNh4bi2L0q121WIXb TIWqnP58Ip7ueUzrJRFe lHDGuC0xinnmh4egnguh TeXbOVSzRFh6XSq6 ELYjvYfcXmUwWZB6DlU5 SHS4hCPkiF5rjIldbyfg aZ0kToq+ODQgWWVhcnM8 L1ToEeh2JOBekSgr MK8jmRMfMEotZt9uiFrn sKkdYS2nSEYoabdoXAZn xN2fPIMphOShhNpjAY2j QZSsftfhr828QiSi AWI3NPVuwDRzL4HecX4j LvQySTRfHPPlF5RlxMFb AAsaA296RYiuIaC3YNGa ryYdD2DfPPVynPqx GoJ5j4X7Ds3DMRzQQP63 HG89yPWjm2H9jIM5I2Jr USTkawbkhrmjlTD9EIPq TMIxyS40nUCkNSfe He0pf6N0t095UWVtRYSs eU65Iy9wjRyfZGGrqHYK xY4bcrxyu7dbnhavPwDl ZRZcEHi7RWw4SXRb pCmoFvHgNJU5VrG7CAB4 zVPyoD5yjMdttqjxmW4d Oyc+M9D1R2ChMffmpHA+ PG30ZLGcPE87hYLm hYZlb8ojyTc5AeZpUCCn VJY3qJktYJncp4QyRPUk L82jdFDrs7C5WSZbiKxq aWMeWfYztNO8hB6j LElbwbihe5vcrshrVfrv p0ddwd65jN43F81hNWkf ZHRoPSIzMCUiIHZhbGln ha2tqP8kBj0+PGNv uYY3hAA9aJ4yIcWvUxK7 LUvhG247BaYguBRiJqtz a5bgm5itpUo1YuBgEQPd iuDotDtwZUX6a4Rl Ua24U59jIXmjRSDxYERz BDDnETCjhIgvuy3vrP3a Ii8+YC2yx6vyag99hM79 dHI+OLSiTLE8uWpl JPdgKZPhmF2eBRueYpE0 XWQvJwGtvN95tTXpFAii Bq8ppTuewKlkPI3jDNNx yuiex404SaQpg7od WCIcoAJqWUvyCZJ5G67f t9I0LVLhXRTbOXC8uGF2 jI7bjRipojzfgIKccCtn dmVydGljYWwtYWxp J319UUBftOulIsXvkOCj I2mmhkCCUI2oVxzrpGA+ TCJuMCK1bXoyEAdySCOj qH5nBHXrS2c6ZlXq BgL4MYluL7XdefR3TJLp gLTjIBCteFCSsE7rbiym y6cgeiivAbPnLGPvRKc1 VIq6MVFmsYccNoVf RZN1RyS8DIG1cEFaaK1s hKivyhnatR5qNrr+RklO OjwvdGQ+TLZdVDY7kGfr SOqzFPSufY8zXODp E6x8HbSzEmE9FEhrE2Ii qaN2IINboRWxNTVaaORM oM5egtbki6ucwvitKrFs WBCaIQa3UYg7CSYw uEefPlWfPPL8XjQ2QIN9 jAYbfS1sxDjraolpkX5j Oyc+TVJOOjwvdGQ+PHRk KWU2dNaiAJngEGWd gE0uCEOtX4m7YxVxJeM3 WEikS4AjjhS5OLRuqCKm MZKboPXQxH3eykmfr2dm cjogIzAwMDAwMDt0 NJn3PUNpxBhzDlUiLFJ4 EpT6FSG9iITxuV3ejXmf fmliwX3eGym+UDN5FFQ5 AX42FL93H9EdUvug dGFibGU+PHRhYmxlIHdp ZHRoPScxMDAlJyBzdHls SQ1pBl1gWMOnTVYutEyl pYUaQnTby2bxRNGx ZTs (more content not included)... [facility] Progress Note - Nurseon 05-21 Progress Note - Nurse Chart reviewed by Dr. Garcia and no new orders received. [Electronically Signed on: 06/07/2021 15:13 EDT] Isabela Soliman RN [Verified on: 06/07/2021 15:13 EDT] Isabela Soliman RN [facility] Provider Orderson 06-07-2021 Provider Orders [id number] #[id number] [facility] C MRSA Screenon 06-05-2021 C MRSA Screen Negative [facility] Comment on above: Performed By: #### 1 [id number] ####[facility] (DEFAULT)[address] [place] [address] .Auto Diff 1on 06-04-2021 Auto [place] % 13 % High 03-03 [facility] Comment on above: Performed By: #### 1 [id number] ####[facility] (DEFAULT)[address] [place] [address] 82600 Baso Abs# 0.0 x10 Normal 0.0-0.2 [facility] Comment on above: Performed By: #### 1 [id number] ####[facility] (DEFAULT)[address] [place] [address] 58610 Basophils/100 WBC (Bld) 0.8 % Normal 0.2-2.0 [facility] Comment on above: Performed By: #### 1 [id number] ####[facility] (DEFAULT)[address] [place] [address] 20125 Eos Abs# 0.1 x10 Normal 0.0-0.4 [facility] Comment on above: Performed By: #### 1 [id number] ####[facility] (DEFAULT)[address] [place] [address] 39035 Eosinophils/100 WBC (Bld) 2.3 % Normal 0.9-4.0 [facility] Comment on above: Performed By: #### 1 [id number], [id number], [id number] ####[facility] (DEFAULT)[address] [place] [address] 57188 Lymph Abs# 1.4 x10 Normal 1.3-2.9 [facility] Comment on above: Performed By: #### 1 [id number], [id number] ####[facility] (DEFAULT)[address] [place] [address] 49205 Lymphocytes/100 WBC (Bld) 28 % Normal 14-48 [facility] Comment on above: Performed By: #### 1 [id number], [id number], [id number] ####[facility] (DEFAULT)[address] [place] [address] [place] Abs# 0.6 x10 Normal 0.0-0.8 [facility] Comment on above: Performed By: #### 1 [id number], [id number] ####[facility] (DEFAULT)[address] [place] [address] 58110 Neut Abs# 2.7 x10 Normal 1.5-9.2 [facility] Comment on above: Performed By: #### 1 [id number], [id number], [id number] ####[facility] (DEFAULT)[address] [place] [address] Neutrophils/100 WBC (Bld) 55 % Normal 44-88 [facility] Comment on above: Performed By: #### 1 [id number], [id number], [id number] ####[facility] (DEFAULT)[address] [place] [address] BMP Standardon 06-04-2021 eGFR Non AA 58 mL/min/1.73m2 Invalid Interpretation Code [facility] Comment on above: Performed By: #### 1 [id number], [id number], [id number] ####[facility] (DEFAULT)[address] [place] [address] eGFR AA >60 Invalid Interpretation Code [facility] Comment on above: Result Comment: Outreach Worker martha Kidney disease could be indicated at eGFRs of less than 60 ml/min/1.73m2. Kidney Failure is indicated at less than 15 ml/min/1.73m2 Performed By: #### 1 [id number], [id number], [id number] ####[facility] (DEFAULT)[address] [place] [address] Anion gap [Moles/Vol] 18.0 mmol/L Normal 5.0-19.0 [facility] Comment on above: Performed By: #### 1 [id number], [id number], [id number] ####[facility] (DEFAULT)[address] [place] [address]237 Calcium [Mass/Vol] 9.8 mg/dL Normal 8.9-10.3 [facility] Comment on above: Performed By: #### 1 [id number], [id number], [id number] ####[facility] (DEFAULT)[address] [place] [address]620 Chloride [Moles/Vol] 96 mmol/L Low 101-111 [facility] Comment on above: Performed By: #### 1 [id number], [id number], [id number] ####[facility] (DEFAULT)[address] [place] [address] 11729 CO2 [Moles/Vol] 27 mmol/L Normal 21-32 [facility] Comment on above: Performed By: #### 1 [id number], [id number], [id number] ####[facility] (DEFAULT)[address] [place] [address]3236 Creatinine [Mass/Vol] 1.19 mg/dL Normal 0.90-1.30 [facility] Comment on above: Performed By: #### 1 [id number], [id number], [id number] ####[facility] (DEFAULT)[address] [place] [address] 79090 Glucose [Mass/Vol] 93.0 mg/dL Normal 74.0-118.0 [facility] Comment on above: Performed By: #### 1 [id number], [id number], [id number] ####[facility] (DEFAULT)[address] [place] [address] 91164 Osmolality 277 mOsm/L Invalid Interpretation Code [facility] Comment on above: Performed By: #### 1 [id number], [id number], [id number] ####[facility] (DEFAULT)[address] [place] [address] 95378 Potassium [Moles/Vol] 4.5 mmol/L Normal 3.6-5.1 [facility] Comment on above: Performed By: #### 1 [id number], [id number], [id number] ####[facility] (DEFAULT)[address] [place] [address] 30615 Sodium [Moles/Vol] 136.0 mmol/L Normal 136.0-144.0 [facility] Comment on above: Performed By: #### 1 [id number], [id number], [id number] ####[facility] (DEFAULT)[address] [place] [address] 76847 Urea nitrogen [Mass/Vol] 27 mg/dL High 8-26 [facility] Comment on above: Performed By: #### 1 [id number], [id number], [id number] ####[facility] (DEFAULT)[address] [place] [address] Urea nitrogen/Creatinine [Mass ratio] 23.0 mg/mg High 4.6-16.2 [facility] Comment on above: Performed By: #### 1 [id number], [id number], [id number] ####[facility] (DEFAULT)[address] [place] [address] CBC w/ Auto Diffon Erythrocyte distribution width (RBC) [Ratio] 12.4 % Normal 11.5-15.0 [facility] Comment on above: Performed By: #### 1 [id number], [id number], [id number] #### [facility] (DEFAULT) [address] [place] [address] Hematocrit (Bld) [Volume fraction] 45.9 % Normal 34.8-51.9 [facility] Comment on above: Performed By: #### 1 [id number], [id number], [id number] #### [facility] (DEFAULT) [address] [place] [address] Hemoglobin (Bld) [Mass/Vol] 14.8 g/dL Normal 11.8-17.7 [facility] Comment on above: Performed By: #### 1 [id number], [id number], [id number] #### [facility] (DEFAULT) [address] [place] [address] Instr WBC 4.8 x10 Invalid Interpretation Code [facility] Comment on above: Performed By: #### 1 [id number], [id number], [id number] #### [facility] (DEFAULT) [address] [place] [address] Man Diff? Auto Normal [facility] Comment on above: Performed By: #### 1 [id number], [id number], [id number] #### [facility] (DEFAULT) [address] [place] [address] MCH (RBC) [Entitic mass] 32 pg Normal 24-34 [facility] Comment on above: Performed By: #### 1 [id number], [id number], [id number] #### [facility] (DEFAULT) [address] [place] [address] MCHC (RBC) [Mass/Vol] 32 g/dL Normal 26-37 [facility] Comment on above: Performed By: #### 1 [id number], [id number], [id number] #### [facility] (DEFAULT) [address] [place] [address] MCV (RBC) [Entitic vol] 98 fL Normal 81-100 [facility] Comment on above: Performed By: #### 1 [id number], [id number], [id number] #### [facility] (DEFAULT) [address] [place] [address] 44856 Platelet 221 x10 Normal 138-427 [facility] Comment on above: Performed By: #### 1 [id number], [id number], [id number] #### [facility] (DEFAULT) [address] [place] [address] 59978 Platelet mean volume (Bld) [Entitic vol] 8.6 fL Normal 6.3-10.2 [facility] Comment on above: Performed By: #### 1 [id number], [id number], [id number] #### [facility] (DEFAULT) [address] [place] [address] 00803 RBC 4.68 x10 Normal 3.70-5.30 [facility] Comment on above: Performed By: #### 1 [id number], [id number], [id number] #### [facility] (DEFAULT) [address] [place] [address] 26391 WBC 4.8 x10 Normal 3.5-10.5 [facility] Comment on above: Performed By: #### 1 [id number], [id number], [id number] #### [facility] (DEFAULT) [address] [place] [address] 10667 UA w Culture if Ind Standard on 06-04-2021 Breakpoint UA Normal [facility] Comment on above: Performed By: #### 1 [id number] ####[facility] (DEFAULT)[address] [place] [address] 71439 Color (U) Yellow Normal [facility] Comment on above: Performed By: #### 1 [id number] ####[facility] (DEFAULT)[address] [place] [address] 18870 Culture? No Normal [facility] Comment on above: Performed By: #### 1 [id number] ####[facility] (DEFAULT)[address] [place] [address] 58895 Glucose (U) [Mass/Vol] Negative Normal [facility] Comment on above: Performed By: #### 1 [id number] ####[facility] (DEFAULT)[address] [place] [address] 85354 Ketones Ql (U) Negative [facility] Comment on above: Performed By: #### 1 [id number] ####[facility] (DEFAULT)[address] [place] [address]9460 Micro? Not Indicated [facility] Comment on above: Performed By: #### 1 [id number] ####[facility] (DEFAULT)[address] [place] [address] 99181 UA Bilirubin Negative Normal [facility] Comment on above: Performed By: #### 1 [id number] ####[facility] (DEFAULT)[address] [place] [address] 01391 UA Blood Negative Normal NEGATIVE [facility] Comment on above: Performed By: #### 1 [id number] ####[facility] (DEFAULT)[address] [place] [address] 42814 UA Clarity CLEAR Normal CLEAR [facility] Comment on above: Performed By: #### 1 [id number] ####[facility] (DEFAULT)[address] [place] [address] 96926 UA Leuk Est Negative Normal NEGATIVE [facility] Comment on above: Performed By: #### 1 [id number] ####[facility] (DEFAULT)[address] [place] [address] 80533 UA Nitrite Negative Normal NEGATIVE [facility] Comment on above: Performed By: #### 1 [id number] ####[facility] (DEFAULT)[address] [place] [address] 14380 UA pH 6.0 Normal 5-8 [facility] Comment on above: Performed By: #### 1 [id number] ####[facility] (DEFAULT)[address] [place] [address] UA Protein Negative Normal NEGATIVE [facility] Comment on above: Performed By: #### 1 [id number] ####[facility] (DEFAULT)[address] [place] [address] UA Spec Grav 1.020 Normal 1.001-1.035 [facility] Comment on above: Performed By: #### 1 [id number] ####[facility] (DEFAULT)[address] [place] [address] UA Urobilinogen 0.2 mg/dL Normal 0.2-1.0 [facility] Comment on above: Performed By: #### 1 [id number] ####[facility] (DEFAULT)[address] [place] [address] Urine Source Clean Catch Normal [facility] Comment on above: Performed By: #### 1 [id number] ####[facility] (DEFAULT)[address] [place] [address] Vital Signs Date Time Vital Sign Value Performing Clinician Danei susannay 11-19-2024 09:30-0400 Body height 175.3 cm Jermain Menchaca MD Work Phone: [facility] 11-19-2024 09:30-0400 Body mass index (BMI) [Ratio] 24.81 kg/m2 Jermain Menchaca MD Work Phone: [facility] 11-19-2024 09:30-0400 Body weight 76.2 kg Jermain Menchaca MD Work Phone: [facility] 11-19-2024 09:30-0400 Diastolic blood pressure 84 mm[Hg] Jermain Menchaca MD Work Phone: [facility] 11-19-2024 09:30-0400 Heart rate 68 /min Jermain Menchaca MD Work Phone: [facility] 11-19-2024 09:30-0400 SaO2% (BldA) [Mass fraction] 98 % Jermain Menchaca MD Work Phone: [facility] 11-19-2024 09:30-0400 Systolic blood pressure 134 mm[Hg] Jermain Menchaca MD Work Phone: [facility] 10-28-2024 09:29-0400 Body height 175.3 cm Jermain Menchaca MD Work Phone: [facility] 10-28-2024 09:29-0400 Body mass index (BMI) [Ratio] 24.81 kg/m2 Jermain Menchaca MD Work Phone: [facility] 10-28-2024 09:29-0400 Body weight 76.2 kg Jermain Menchaca MD Work Phone: [facility] 10-28-2024 09:29-0400 Diastolic blood pressure 82 mm[Hg] Jermain Menchaca MD Work Phone: [facility] 10-28-2024 09:29-0400 Heart rate 79 /min Jemrain Menchaca MD Work Phone: [facility] 10-28-2024 09:29-0400 SaO2% (BldA) [Mass fraction] 95 % Jermain Menchaca MD Work Phone: [facility] 10-28-2024 09:29-0400 Systolic blood pressure 132 mm[Hg] Jermain Menchaca MD Work Phone: [facility] 01-09-2024 08:28-0500 Body height 175.3 cm Chata Hemmer PA Work Phone: [facility] 01-09-2024 08:28-0500 Body mass index (BMI) [Ratio] 24.04 kg/m2 Chata Hemmer PA Work Phone: [facility] 01-09-2024 08:28-0500 Body weight 73.85 kg Chata Hemmer PA Work Phone: [facility] 01-09-2024 08:28-0500 Diastolic blood pressure 72 mm[Hg] Chata Hemmer PA Work Phone: [facility] 01-09-2024 08:28-0500 Heart rate 104 /min Chata Hemmer PA Work Phone: [facility] 01-09-2024 08:28-0500 Respiratory rate 16 /min Chata Hemmer PA Work Phone: [facility] 01-09-2024 08:28-0500 SaO2% (BldA) [Mass fraction] 92 % Chata Hemmer PA Work Phone: [facility] 01-09-2024 08:28-0500 Systolic blood pressure 100 mm[Hg] Chata Hemmer PA Work Phone: [facility] 12-26-2023 08:30-0500 Body height 175.3 cm Chata Hemmer PA Work Phone: [facility] 12-26-2023 08:30-0500 Body mass index (BMI) [Ratio] 24.54 kg/m2 Chata Hemmer PA Work Phone: [facility] 12-26-2023 08:30-0500 Body weight 75.39 kg Chata Hemmer PA Work Phone: [facility] 12-26-2023 08:30-0500 Diastolic blood pressure 68 mm[Hg] Chata Hemmer PA Work Phone: [facility] 12-26-2023 08:30-0500 Heart rate 68 /min Chata Hemmer PA Work Phone: [facility] 12-26-2023 08:30-0500 Respiratory rate 16 /min Chata Hemmer PA Work Phone: [facility] 12-26-2023 08:30-0500 SaO2% (BldA) [Mass fraction] 91 % Chata Hemmer PA Work Phone: [facility] 12-26-2023 08:30-0500 Systolic blood pressure 122 mm[Hg] Chata Hemmer PA Work Phone: [facility] 10-30-2023 13:50-0400 Body height 175.3 cm Jermain Menchaca MD Work Phone: [facility] 10-30-2023 13:50-0400 Body mass index (BMI) [Ratio] 24.96 kg/m2 Jermain Menchaca MD Work Phone: [facility] 10-30-2023 13:50-0400 Body weight 76.66 kg Jermain Menchaca MD Work Phone: [facility] 10-30-2023 13:50-0400 Diastolic blood pressure 82 mm[Hg] Jermain Menchaca MD Work Phone: [facility] 10-30-2023 13:50-0400 Heart rate 74 /min Jermain Menchaca MD Work Phone: [facility] 10-30-2023 13:50-0400 SaO2% (BldA) [Mass fraction] 97 % Jermain Menchaca MD Work Phone: [facility] 10-30-2023 13:50-0400 Systolic blood pressure 138 mm[Hg] Jermain Menchaca MD Work Phone: [facility] Encounters Encounter Date Encounter Type Care Provider Facility Start: 11-25-2024 End: 11-25-2024 ambulatory Alberto Pacheco MD Facility:[facility] Start: 11-19-2024 End: 11-19-2024 Office outpatient visit 25 minutes Jermain Menchaca MD Work Phone: [facility] Comment on above: Acute hip pain, left (Primary Dx); Piriformis syndrome of left side Start: 11-19-2024 End: 11-19-2024 ambulatory JERMAIN MENCHACA Not Available Start: 11-06-2024 End: 11-06-2024 Emergency department patient visit KIERAN GAINES [facility] Start: 10-28-2024 End: 10-28-2024 Bamboo flowsheet [facility] Start: 10-28-2024 End: 10-28-2024 Bamboo flowsheet [facility] Start: 10-28-2024 End: 10-28-2024 Assay of hemosiderin, quant Jermain Menchaca MD Work Phone: [facility] Start: 10-28-2024 End: 10-28-2024 Patient encounter procedure Jermain Menchaca MD Work Phone: [facility] Comment on above: Routine general medi toni examination at health care facility (Primary Dx); Benign essential hypertension ; Pure hypercholesterolemia ; Medicare annual wellness visit, subsequent; Retention of urine, unspecified Start: 10-28-2024 End: 10-28-2024 ambulatory JERMAIN Wan NIKOLAI Not Available Start: 04-29-2024 End: 04-29-2024 ambulatory JERMAIN MENCHACA Not Available Start: 01-22-2024 End: 01-22-2024 ambulatory Alberto Pacheco MD Facility:[facility] Start: 01-16-2024 End: 01-16-2024 ambulatory LITA SILVESTRE Not Available Start: 01-16-2024 End: 01-16-2024 Bamboo flowsheet Lita Silvestre NEWS ASSISTANT Work Phone: [facility] Start: 01-16-2024 End: 01-16-2024 Bamboo flowsheet Lita Silvestre NEWS ASSISTANT Work Phone: [facility] Start: 01-16-2024 End: 01-16-2024 ambulatory LITA SILVESTRE Not Available Start: 01-16-2024 End: 01-16-2024 Office outpatient visit 10 minutes Lita Silvestre NP Work Phone: [facility] Comment on above: Closed fracture of m ultiple pubic rami, right, with routine healing, subsequent encounter Start: 01-09-2024 End: 01-09-2024 Bamboo flowsheet Chata COLIN Work Phone: [facility] Start: 01-09-2024 End: 01-09-2024 Bamboo flowsheet Chata Rodrigues PA Work Phone: [facility] Start: 01-09-2024 End: 01-09-2024 Office outpatient visit 15 minutes Chata COLIN Work Phone: [facility] Comment on above: Pressure ulcer of co ccygeal region, stage 2 (CMS/HCC) (Primary Dx) Start: 01-09-2024 End: 01-09-2024 ambulatory CHATA RODRIGUES Not Available Start: 01-01-2024 End: 01-01-2024 ambulatory Alberto Pacheco MD Facility:[facility] Start: 12-26-2023 End: 12-26-2023 Bamboo flowsheet Chata Rodrigues PA Work Phone: [facility] Start: 12-26-2023 End: 12-26-2023 Bamboo flowsheet Chata Rodrigues PA Work Phone: [facility] Start: 12-26-2023 End: 12-26-2023 Office outpatient visit 15 minutes Chata Rodrigues PA Work Phone: [facility] Comment on above: Pressure ulcer of co ccygeal region, stage 2 (CMS/HCC) (Primary Dx); Need for vaccination Start: 12-26-2023 End: 12-26-2023 ambulatory CHATA RODRIGUES Not Available Start: 12-25-2023 End: 12-26-2023 Telephone encounter Enrique Rutherford DO Work Phone: [facility] Comment on above: question Start: 12-25-2023 End: 12-25-2023 ambulatory Alberto Pacheco MD Facility:[facility] Start: 12-19-2023 End: 12-19-2023 Bamboo flowsheet Lita Silvestre NEWS ASSISTANT Work Phone: [facility] Start: 12-19-2023 End: 12-19-2023 Bamboo flowsheet Lita Silvestre NEWS ASSISTANT Work Phone: [facility] Start: 12-19-2023 [...] 11-23-2023 End: 11-23-2023 Bamboo flowsheet Lita Silvestre NEWS ASSISTANT Work Phone: [facility] Start: 11-23-2023 End: 11-23-2023 Bamboo flowsheet Lita Silvestre NP Work Phone: [facility] Start: 11-23-2023 End: 11-23-2023 Office outpatient visit 10 minutes Lita Silvestre NP Work Phone: [facility] Comment on above: Closed fracture of m ultiple pubic rami, right, with routine healing, subsequent encounter; Closed nondisplaced fracture of medial wall of left acetabulum with routine healing, subsequent encounter Start: 11-09-2023 End: 11-09-2023 Bamboo flowstita Silvestre NP Work Phone: [facility] Start: 11-09-2023 End: 11-09-2023 Bamboo flowsheet Lita Silvestre NP Work Phone: [facility] Start: 11-09-2023 End: 11-09-2023 Office outpatient visit 15 minutes Lita Silvestre NP Work Phone: [facility] Comment on above: Closed fracture of m ultiple pubic rami, right, initial encounter (CMS/HCC) (Primary Dx); Nondisplaced fracture of medial wall of left acetabulum, initial encounter for closed fracture (CMS/HCC) Start: 10-30-2023 End: 10-30-2023 Assay of hemosiderin, quant Jermain Menchaca MD Work Phone: [facility] Work Phone: Start: 10-30-2023 End: 10-30-2023 Bamboo flowsheet Jermain Menchaca MD Work Phone: [facility] Start: 10-30-2023 End: 10-30-2023 Bamboo flowsheet Jermain Menchaca MD Work Phone: [facility] Start: 10-30-2023 End: 10-30-2023 Patient encounter procedure Jermain Menchaca MD Work Phone: [facility] Comment on above: Routine general medi toni examination at [facility] (Primary Dx); 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 Start: 12-17-2021 End: 12-17-[address] JERMAIN MENCHACA Facility: Procedures Date Procedure Procedure Detail Performing Clinician Start: 01-16-2024 Radiologic examinati on pelvis 1/2 views Lita Silvestre NP Work Phone: Start: 12-19-2023 Radiologic examinati on pelvis 1/2 views Lita Silvestre NEWS ASSISTANT Work Phone: Start: 11-23-2023 Radiologic examinati on pelvis 1/2 views Lita Silvestre NEWS ASSISTANT Work Phone: Plan of Treatment Date Care Activity Detail Author Start: 10-28-2025 Medicare Annual Wellness (AWV) Medicare Annual Wellness (AWV) [facility] Start: 04-28-2025 End: 04-28-2025 Patient encounter procedure 04/28/2025 8:30 AM EDT [facility] [address] [place] [address] Jermain Menchaca MD [address] [place] [address] [place] [address] [facility] Start: 10-29-2024 Medicare Annual Wellness (AWV) Medicare Annual Wellness (AWV) [facility] Start: 10-28-2024 End: 10-28-2025 CBC W Auto Differential panel - Blood CBC and differential Lab Routine Benign essential hypertension Pure hypercholesterolemia Medicare annual wellness visit, subsequent Expected: 10/28/2024 (Approximate), Expires: 10/28/2025 [facility] Comment on above: Expected: 10/28/2024 [...] visit, subsequent Expected: 10/28/2024 (Approximate), Expires: 10/28/2025 [facility] Work Phone: Comment on above: Expected: 10/28/2024 (Approximate), Expi res: 10/28/2025 Start: 10-28-2024 End: 10-28-2024 Patient encounter procedure 10/28/2024 9:30 AM EDT Office Visit [facility] [place] [address] [place] [place] [phone] Jermain Menchaca MD [address] [place] [address] [place] [address] Arrived [facility] [place] [facility] Comment on above: Arrived Start: 10-21-2024 Influenza vaccination Influenza Vaccine (#1) [facility] Start: 06-01-2024 Adult BMI Screening Adult BMI Screening [facility] Start: 05-31-2024 Tobacco Screening Tobacco Screening [facility] Start: 04-29-2024 End: 04-29-2024 Patient encounter procedure 04/29/2024 9:45 AM EDT Office Visit [facility] [address] [place] [address] Jermain Menchaca MD [address] [place] [address] [place] [address] [facility] Start: 01-16-2024 End: 01-16-2024 Patient encounter procedure 01/16/2024 10:15 AM EST Office Visit [facility] [address] [place] [address] Lita Silvestre, NEWS ASSISTANT [address] [place] [address] [facility] Start: 01-09-2024 End: 01-09-2024 Patient encounter procedure [facility] Comment on above: Arrived Start: 12-26-2023 End: 12-26-2023 Patient encounter procedure 12/26/2023 8:30 AM EST Office Visit [facility] [address] [place] [address] Chata Rodrigues PA [address] [facility] [address] [place] [address] Arrived [facility] Comment on above: [...] Visit [facility] [address] [place] [address] Lita Silvestre, NEWS ASSISTANT [address] [place] [address] [facility] Start: 11-23-2023 End: 11-23-2023 Patient encounter procedure 11/23/2023 2:00 PM EDT Office Visit [facility] [address] [place] [phone] Lita Silvestre, NEWS ASSISTANT [address], [place] [phone] Arrived [facility] Comment on above: Arrived Start: 11-09-2023 End: 11-09-2023 Patient encounter procedure 11/09/2023 1:45 PM EDT Office Visit [facility] [address] [place] [phone] Lita Silvestre, NEWS ASSISTANT [address], [place] [phone] Arrived [facility] Comment on above: Arrived Start: 10-30-2023 End: 10-30-2023 Patient encounter procedure 10/30/2023 2:00 PM EDT Office Visit [facility] [address] [facility] [address] [place] [phone] Jermain Menchaca MD [address] [facility] [address] [place] [address] Arrived [facility] Comment on above: Arrived Start: 10-22-[address] [facility] Start: 10-12-2023 Medicare Annual Wellness (AWV) Medicare Annual Wellness (AWV) [facility] Start: 2001 Fall Risk Screening Fall Risk Screening [facility] Start: 1986 Administration of varicella zoster vaccine Zoster (Shingles) Vaccine (1 of 2) [facility] Start: 08-25-1955 DTaP,Tdap and Td Vaccines (1 - Tdap) DTaP,Tdap and Td Vaccines (1 - Tdap) [facility] Start: 1948 Depression Screening Depression Screening [facility] Start: 1936 Medicare Annual Wellness Visit Medicare Annual Wellness Visit [facility] Immunizations Immunization Date Immunization Notes Care Provider Fa cili 12-26-2023 Influenza, High-dose Seasonal, Quadrivalent, Preservative Free Chata COLIN Work Phone: [facility] 12-26-2023 influenza virus vacc ine, unspecified formulation Jermain Menchaca MD Work Phone: [facility] 12-22-2022 influenza, high dose seasonal, preservative-free Jermain Menchaca MD Work Phone: [facility] 12-22-2022 influenza virus vacc ine, unspecified formulation Sunitha Giron RN [facility] 12-18-2021 Influenza, High-dose Seasonal, Quadrivalent, Preservative Free Jermain Menchaca MD Work Phone: [facility] 12-18-2021 Moderna Bivalent Silver ster Vaccination Jermain Menchaca MD Work Phone: [facility] 12-01-2020 Influenza, High-dose Seasonal, Quadrivalent, Preservative Free Jermain Menchaca MD Work Phone: [facility] 12-16-2019 influenza, injectabl e, quadrivalent, preservative free Jermain Menchaca MD Work Phone: [facility] 12-10-2018 influenza, injectabl e, quadrivalent, preservative free Jermain Menchaca MD Work Phone: [facility] 12-20-2017 influenza, high dose seasonal, preservative-free Jermain Menchaca MD Work Phone: [facility] 12-11-2017 influenza, injectabl e, quadrivalent, preservative free Jermain Menchaca MD Work Phone: [facility] 11-01-2016 influenza, high dose seasonal, preservative-free Jermain Menchaca MD Work Phone: [facility] 11-01-2016 pneumococcal conjuga te vaccine, 13 valent Jermain Menchaca MD Work Phone: [facility] 11-21-2015 pneumococcal polysaccharide vaccine, 23 valent Jermain Menchaca MD Work Phone: [facility] 11-19-2015 influenza, injectabl e, madin abhijit canine kidney, preservative free Jermain Menchaca MD Work Phone: [facility] 10-29-2015 influenza virus vacc ine, unspecified formulation Jermain Menchaca MD Work Phone: [facility] 10-29-2015 influenza, seasonal, injectable, preservative free Jermain Menchaca MD Work Phone: [facility] 01-03-2015 influenza, high dose seasonal, preservative-free Jermain Menchaca MD Work Phone: [facility] 04-14-2014 pneumococcal vaccine , unspecified formulation Jermain Menchaca MD Work Phone: [facility] 11-14-2012 influenza virus vacc ine, whole virus Jermain Menchaca MD Work Phone: [facility] 11-22-2011 influenza virus vacc sandra, whole virus Jermain Menchaca MD Work Phone: [facility] 11-17-2010 influenza virus vacc sandra, whole virus Jermain Menchaca MD Work Phone: [facility] 12-02-2009 influenza virus vacc ine, whole virus Jermain Menchaca MD Work Phone: [facility] 11-26-2008 influenza virus vacc ine, whole virus Jermain Menchaca MD Work Phone: [facility] 12-06-2006 influenza virus vacc ine, whole virus Jermain Menchaca MD Work Phone: [facility] Payers Date Payer Category Payer Unknown [id number] 2014 Private Health Insurance [id number] 2001 Medicare [id number] 1959 Medicare [id number] 1959 Unknown [id number] 1936 Unknown [id number] 2.16.84 [id number] 1936 Unknown [id number] 2.16. [id number] 1936 Unknown [id number] 2.16.8 [id number] 1936 Unknown [id number] 2.16.8 [id number] 1936 Unknown [id number] 2.16.84 [id number] 1936 Unknown [id number] 2.16.84 [id number] 1936 Unknown [id number] 2.16.84 [id number] 1936 Unknown [id number] 2.16.84 [id number] 1936 Unknown [id number] 2.16.84 [id number] 1936 Unknown [id number] 2.16.84 [id number] 1936 Unknown [id number] 2.16.84 [id number] 1936 Unknown [id number] 2.16. [id number] 1936 Unknown [id number] 2.16 [id number] 1936 Unknown [id number] 2.16. [id number] 1936 Unknown [id number] 2.16 [id number] Social History Date Type Detail Facility Start: 12-01-2021 End: 08-21-2023 Tobacco smoking status [facility] Ex-smoker [facility] Work Phone: End: 02-20-1969 History of tobacco use Current smoker [facility] End: 02-20-1969 History of tobacco use Cigarette Smoker [facility] Start: 12-01-2021 End: 08-21-2023 Tobacco use and exposure Smokeless tobacco non-user [facility] Start: 10-30-2023 End: 11-19-2024 Alcoholic beverage intake Current drinker of alcohol (finding) [facility] Start: 10-30-2023 End: 11-19-2024 History of Social function [facility] Start: 10-30-2023 End: 11-19-[address] [facility] Start: 12-01-2022 Alcohol Comment 1-2 drinks monthly or less [facility] Start: 1935 Sex assigned at Not on file [facility] Has the [facility], [employer], or water [employer] threatened to shut off services in your home in past 12Mo No [facility] In the past 12 month s, has lack of transportation kept you from medical appointments or from getting medications? No [facility] Start: 12-01-2021 Tobacco Comment Quit smoking over 40 years ago [facility] [employer] [facility] Start: 08-03-2018 Alcohol Comment rare [facility] Goals Date Patient Goal Desired Activity /State Personal health goal Comment on above: Formatting of this n ote might be different from the original. Evaluation of progress towards goal: Safe dc transition from hospital to home with family support. Functional Status Date Assessment Result Facility 11-19-2024 Patient Health Quest ionnaire 2 item (PHQ-2) [Reported] [facility] 10-28-2024 Patient Health Quest ionnaire 2 item (PHQ-2) [Reported] [facility] Clinical Notes 06-21-2021 to 11-19-2024 Jermain Menchaca MD - 11/19/2024 9:42 AM Shilpa Menchaca MD - 11/19/2024 9:36 AM Shilpa [...] Flowsheet Row Patient Outreach from 11/08/[address] [facility] with Shannan Veliz RN Hospital Information ED, Hospital or Halfway Facility Discharge? ED Patient has been contacted within 2 days of being seen in the ED Yes Diagnosis Strain of left hip Discharge Date 11/06/24 Discharged To: Home Setting Discharge Hospital [facility] Engagement Call Start Time 0849 Admission Date [...] to ER for evaluation, bent over to pickle processor an apple and felt a pop in [...] mg by mouth in the morning. HYDROcodone-acetaminophen (Dierks) 5-325 MG tablet Take 1 tablet by [...] Right 08/08/[address] Rutherford. [facility] ID REPAIR OF HAMMERTOE,ONE Bilateral Procedure:Surgical repair;Disease:Hammer Toe [...] fail to improve. documented in this encounter [facility] 10-28-2024 History of Present illness Narrative [...] male here for an annual wellness visit. [facility] I have reviewed and reconciled the history [...] mg by mouth in the morning. HYDROcodone-acetaminophen (Dierks) 5-325 MG tablet Take 1 tablet by [...] Do you have a medical power of immigration attorney?: Yes Objective : BP 132/82 Pulse [...] October 28, 2024 documented [address] this encounter [facility] 01-16-2024 History of Present illness Narrative Images from the original note were not included. Chief Complaint Patient presents with Pelvis - Follow-up HISTORY OF PRESENT ILLNESS: Enrique Mike is an 88 y.o. @ male. Low back/pelvis injury x 10 weeks 2 days, 11/05/23, fell back off a ladder. Went to [facility] ER 11/05, had CT abdomen pelvis and [...] in tailbone with prolonged sitting. Prior tx: [facility] ER 11/06/23, CT abdomen pelvis, norco, TYL, XR [facility] 12/19/23, [facility] 01/16/24 ALLERGIES: No Known Allergies HOME MEDICATIONS: Current Outpatient Medications Medication Instructions acetaminophen (TYLENOL) 325 mg, Oral, Every 6 hours PRN baclofen (LIORESAL) 10 mg, Oral, 2 times daily PRN co-enzyme Q-10 100 mg, Oral, Daily finasteride (PROSCAR) 5 mg, Oral, Daily HYDROcodone-acetaminophen (Dierks) 5-325 MG tablet 1 tablet, Oral, Every [...] rami and left acetabulum fracture. Lita Silvestre EDUCATION SUPERVISOR-MAINTENANCE WORKER HOUSE TRAILER ASSESSMENT: ICD-10-CM 1. Closed fracture of multiple [...] develop for requiring urgent evaluation. Lita Silvestre EDUCATION SUPERVISOR-MAINTENANCE WORKER HOUSE TRAILER documented in this encounter [facility] 01-09-2024 History of Present illness Narrative [...] mg by mouth in the morning. HYDROcodone-acetaminophen (Dierks) 5-325 MG tablet Take 1 tablet by [...] Right 08/08/[address] Rutherford[address] [facility] ID REPAIR OF HAMMERTOE,ONE Bilateral Procedure:Surgical repair;Disease:Hammer Toe [...] now scabbed. He is doing well with [employer]. Pt is being told by PM to [...] Appointment As Scheduled. documented in this encounter [facility] 12-26-2023 History of Present illness Narrative [...] like.He has been using a cream the deckhand engineer prescribed (doesn't know the name of the [...] mg by mouth in the morning. HYDROcodone-acetaminophen (Dierks) 5-325 MG tablet Take 1 tablet by [...] Right 08/08/[address] Rutherford[address] [facility] ID REPAIR OF HAMMERTOE,ONE Bilateral Procedure:Surgical repair;Disease:Hammer Toe [...] vaccination - Influenza, high-dose seasonal, quadrivalent, PF ([id number]) (Fluzone High Dose Quad North 0.7mL dose) Provided pt with Flu shot today. He tolerated this well. Follow up for Wound Check in 1-2 Weeks. documented in this encounter [facility] 12-25-2023 Telephone encounter Note Sounds good [facility] Work Phone: 12-25-2023 Miscellaneous Notes Sounds good I can see him in [place] today but I dont know how much I will be able to do. Gerardo mayfield called for patient stated his dad was seen for L-spine and hip pain by you and Dr Rutherford he was referred to pain mgmt in [facility] also, he can hardly walk and in a lot of pain. He asked where he should start, he did try [facility] mgmt number but had trouble getting ahold of them, I gave him the number to hospital and told him to ask for pain mgmt. He asked should he go there or can you or Dr Rutherford see him? Please advise. His call back [phone] documented in this encounter [facility] 12-25-2023 Telephone encounter Note I can see him in [place] today but I dont know how much I will be able to do. [facility] 12-25-2023 Telephone encounter Note Gerardo mayfield called for patient stated his dad was seen for L-spine and hip pain by you and Dr Rutherford he was referred to pain mgmt in [facility] also, he can hardly walk and in a lot of pain. He asked where he should start, he did try [facility] mgmt number but had trouble getting ahold of them, I gave him the number to hospital and told him to ask for pain mgmt. He asked should he go there or can you or Dr Rutherford see him? Please advise. His call back [phone] [facility] 12-19-2023 History of Present illness Narrative Images from the original note were not included. Chief Complaint Patient presents with Pelvis - Follow-up HISTORY OF PRESENT ILLNESS: Enrique Mike is an 88 y.o. @ male. Low back/pelvis injury x 6 weeks 2 days, 11/05/23, fell back off a ladder. Went to [facility] ER 11/05, had CT abdomen pelvis and given norco. Hx decompressive laminectomy L3-4, L4-5 (12/01/21)- Dr Rutherford Walking with a walker. States he was doing fine but has recently been having a terrible time. Unsure if something shifted. Pain is mostly LT sided. Taking TYL and IBU. Prior tx: [facility] ER 11/06/23, CT abdomen pelvis, norco, TYL, XR [facility] 12/19/23 ALLERGIES: No Known Allergies HOME MEDICATIONS: Current Outpatient Medications Medication Instructions acetaminophen (TYLENOL) 325 mg, Oral, Every 6 hours PRN baclofen (LIORESAL) 10 mg, Oral, 2 times daily PRN co-enzyme Q-10 100 mg, Oral, Daily finasteride (PROSCAR) 5 mg, Oral, Daily HYDROcodone-acetaminophen (Dierks) 5-325 MG tablet 1 tablet, Oral, Every [...] rami and left acetabulum fracture. Lita Silvestre EDUCATION SUPERVISOR-MAINTENANCE WORKER HOUSE TRAILER ASSESSMENT: ICD-10-CM 1. Closed fracture of multiple [...] develop for requiring urgent evaluation. Lita Silvestre APRN-MAINTENANCE WORKER HOUSE TRAILER documented in this encounter [facility] 11-23-2023 History of Present illness Narrative Images from the original note were not included. Chief Complaint Patient presents with Pelvis - Follow-up HISTORY OF PRESENT ILLNESS: Enrique Mike is an 88 y.o. @ male. Low back/pelvis injury x 2 weeks 4 days, 11/05/23, fell back off a ladder. Went to [facility] ER 11/05, had CT abdomen pelvis and given norco. Hx decompressive laminectomy L3-4, L4-5 (12/01/21)- Dr Rutherford WBAT with walker. States he sat for a while in a hard chair, had increased pain. Pain near RT hip/buttocks. Taking TYL. Denies N/T. Does not wake at HS, sleep better in chair. Increased pain with walking. Prior tx: [facility] ER 11/06/23, CT abdomen pelvis, norco, TYL ALLERGIES: No Known Allergies HOME MEDICATIONS: Current Outpatient Medications Medication Instructions acetaminophen (TYLENOL) 325 mg, Oral, Every 6 hours PRN baclofen (LIORESAL) 10 mg, Oral, 2 times daily PRN co-enzyme Q-10 100 mg, Oral, Daily finasteride (PROSCAR) 5 mg, Oral, Daily HYDROcodone-acetaminophen (Dierks) 5-325 MG tablet 1 tablet, Oral, Every [...] rami and left acetabulum fracture. Lita Silvestre EDUCATION SUPERVISOR-MAINTENANCE WORKER HOUSE TRAILER ASSESSMENT: ICD-10-CM 1. Closed fracture of multiple [...] develop for requiring urgent evaluation. Lita Silvestre EDUCATION SUPERVISOR-MAINTENANCE WORKER HOUSE TRAILER documented in this encounter [facility] 11-09-2023 History of Present illness Narrative Images from the original note were not included. Chief Complaint Patient presents with Lower Back - Pain HISTORY OF PRESENT ILLNESS: Enrique Mike is an 88 y.o. @ male. Est pt, new problem. Low back/pelvis injury x 4 days, 11/05/23, fell back off a ladder. Went to [facility] ER 11/05, had CT abdomen pelvis and given norco. Hx decompressive laminectomy L3-4, L4-5 (12/01/21)- Dr Rutherford Walking with a walker. Denies pain in low back. Pain near RT hip/buttocks. Taking TYL. Denies N/T. Does not wake at HS, sleep better in chair. Increased pain with walking. Prior tx: [facility] ER 11/06/23, CT abdomen pelvis, norco ALLERGIES: No Known Allergies HOME MEDICATIONS: Current Outpatient Medications Medication Instructions acetaminophen (TYLENOL) 325 mg, Oral, Every 6 hours PRN baclofen (LIORESAL) 10 mg, Oral, 2 times daily PRN co-enzyme Q-10 100 mg, Oral, Daily finasteride (PROSCAR) 5 mg, Oral, Daily HYDROcodone-acetaminophen (Dierks) 5-325 MG tablet 1 tablet, Oral, Every [...] of multiple pubic rami, right, initial encounter ([facility]) S32.591A 2. Nondisplaced fracture of medial wall of left acetabulum, initial encounter for closed fracture ([facility]) S32.475A Procedures PLAN: I reviewed CT [...] develop for requiring urgent evaluation. Lita Silvestre EDUCATION SUPERVISOR-MAINTENANCE WORKER HOUSE TRAILER documented in this encounter [facility] 10-30-2023 History of Present illness Narrative Associated Problem(s): Embolism and thrombosis of unspecified artery ([facility]) Baby aspirin 2 a day Images [...] Do you have a medical power of immigration attorney?: Yes Objective : BP 138/82 Pulse [...] reading needs magnifier documented in this encounter [facility] 06-05-2023 Miscellaneous Notes ----- Message from ALMA ROSA Escobedo sent at 06/02/2023 3:21 PM EDT ----- Please arrange 4-6 week follow-up with Dr. Duff, Dr. 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 Duff, Dr. 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 HARRIS [...] or concerns, please call the office at [phone] -Follow up as scheduled [facility] 06-22-2021 Note [facility] Discharge Summary PERSON INFORMATION Name ENRIQUE MIKE Age 85 Years 1935 Sex MALE Language Yi PCP JERMAIN MENCHACA MD Marital Status Med Service Observation Acct# Arrival 06/21/2021 05:54:00 Visit Reason SURGERY - LEFT REVERSE TOTAL SHOULDER - ARTHREX Acuity LOS 000 29:26 Address: [address] [place] [address] Comment: PROVIDER INFORMATION VITALS INFORMATION Vital Sign [...] EDUCATION INFORMATION Instructions: Sangeeta- [facility] Follow up: With: Address: When: Enrique Rutherford [address] [place] [address], [address] [place] [address] Business (1) 06/29/2021 10:45 AM DIAGNOSIS Osteoarthritis of left shoulder; Other specific arthropathies, not elsewhere classified, left shoulder; Rotator cuff tear arthropathy of left shoulder Comment: PHYS DOC NOTES [facility] 06-21-2021 Note [id number] [facility] Evaluation note Diagnosis Closed fracture of multiple pubic rami, right, with routine healing, subsequent encounter Closed nondisplaced fracture of medial wall of left acetabulum with routine healing, subsequent encounter documented in this encounter [facility] HealthcareEvaluation note* Diagnosis Screening PSA (prostate specific [...] facility Routine general medical examination at a [facility] care facility Acquired hypothyroidism Unspecified hypothyroidism Stage [...] general medical examination at a [facility] care facility Benign essential hypertension Essential hypertension, benign Pure hypercholesterolemia Pure hypercholesterolemia Medicare annual wellness visit, subsequent Retention of urine, unspecified documented in this encounter [facility]* [...] of left side documented in this encounter [facility] HealthcareInstructionsNot on filedocumented in this [facility] Summary Purpose Family History No Family History [...] section and content) DATE CREATED AUTHOR 10/13/2021 [facility] DATE CREATED AUTHOR AUTHOR'S ORGANIZ ATION 10/18/2021 [facility] dical Specialist DATE CREATED AUTHOR AUTHOR'S ORGANIZ ATION 12/20/2021 [facility] DATE CREATED AUTHOR AUTHOR'S ORGANIZ ATION 11/02/2024 [facility] DATE CREATED AUTHOR AUTHOR'S ORGANIZ ATION 11/07/2024 [facility] DATE CREATED AUTHOR AUTHOR'S ORGANIZ ATION 11/24/2024 [facility] dical Specialists EPIC DATE CREATED AUTHOR AUTHOR'S ORGANIZ ATION 11/30/2024 [facility] Care Teams (unrecognized sec tion and content) Clothing Busheler Relationship Specialty Start Date End Date Jermain Menchaca MD [address] [place] [address] [address] [place] [address] PCP - General Family Medicine 07/04/22 Jermain Menchaca MD [address] [place] [address] [place] [address] PCP - ACO Reach 07/14/22 Clothing Busheler Relationship Specialty Start Date End Date Jermain Menchaca MD [address] [place] [address] [place] [address] PCP - General Family Medicine 07/04/22 Jermain Menchaca MD [address] [place] [address] [place] [address] PCP - ACO Reach 07/14/22 Clothing Busheler Relationship Specialty Start Date End Date Jermain Menchaca MD [address] [place] [address] [place] [address] PCP - General Family Medicine 07/04/22 Jermain Menchaca MD [address] [place] [address] [place] [address] PCP - ACO Reach 07/14/22 Clothing Busheler Relationship Specialty Start Date End Date Jermain Menchaca MD [address] [place] [address] [place] [address] PCP - General Family Medicine 07/04/22 Jermain Menchaca MD [address] [place] [address] [place] [address] PCP - ACO Reach 07/14/22 Clothing Busheler Relationship Specialty Start Date End Date Jermain Menchaca MD [address] [place] [address] [place] [address] PCP - General Family Medicine 07/04/22 Jermain Menchaca MD [address] [place] [address] [place] [address] PCP - ACO Reach 07/14/22 Clothing Busheler Relationship Specialty Start Date End Date Jermain Menchaca MD [address] [place] [address] [place] [address] PCP - General Family Medicine 07/04/22 Jermain Menchaca MD [address] [place] [address] [place] [address] PCP - ACO Reach 07/14/22 Clothing Busheler Relationship Specialty Start Date End Date Jermain Menchaca MD [address] [place] [address] [place] [address] PCP - General Family Medicine 07/04/22 Jermain Menchaca MD [address] [place] [address] [place] [address] PCP - ACO Reach 07/14/22 Clothing Busheler Relationship Specialty Start Date End Date Jermain Menchaca MD [address] [place] [address] [place] [address] PCP - General Family Medicine 07/04/22 Jermain Menchaca MD [address] [place] [address] [place] [address] PCP - ACO Reach 07/14/22 Clothing Busheler Relationship Specialty Start Date End Date Jermain Menchaca MD [address] [place] [address] [place] [address] PCP - General Family Medicine 07/04/22 Jermain Menchaca MD [address] [place] [address] [place] [address] PCP - ACO Reach 07/14/22 Clothing Busheler Relationship Specialty Start Date End Date Jermain Menchaca MD [address] [place] [address] [place] [address] PCP - General Family Medicine 07/04/22 Jermain Menchaca MD [address] [facility] [address] [place] [address] PCP - ACO Reach 07/14/22 Clothing Busheler Relationship Specialty Start Date End Date Jermain Menchaca MD [address] [facility] [address] [place] [address] PCP - General Family Medicine 07/04/22 Jermain Menchaca MD [address] [facility] [address] [place] [address] PCP - ACO Reach 07/14/22 Clothing Busheler Relationship Specialty Start Date End Date Jermain Menchaca MD [address] [facility] [address] [place] [address] PCP - General Family Medicine 07/04/22 Jermain Menchaca MD [address] [facility] [address] [place] [address] PCP - ACO Reach 07/14/22 Clothing Busheler Relationship Specialty Start Date End Date Jermain Menchaca MD [facility] [address] PCP - General Family Medicine 08/03/18 Clothing Busheler Relationship Specialty Start Date End Date Jermain Menchaca MD [address] [facility] [address] [place] [address] PCP - General Family Medicine 07/04/22 Jermain Menchaca MD [address] [facility] [address] [place] [address] PCP - ACO Reach 07/14/22 Clothing Busheler Relationship Specialty Start Date End Date Jermain Menchaca MD [address] [facility] [address] [place] [address] PCP - General Family Medicine 07/04/22 Jermain Menchaca MD [address] [facility] [address] [place] [address] PCP - ACO Reach 07/14/22 Reason for [...] BE BASED ON THE PRIMARY CLINICAL RECORDS. [facility]. provides no warranty or guarantee of the accuracy or completeness of information in this document.
--- NOTE | 2024-12-04 08:16 | PM.CN ---
Consult Note: HPI Data of Consult Patient: known to practice within the last 3 years Consult date: 11/07/24 Requesting Physician: Gracie Mcqueen NP Primary Care Provider: JERMAIN MENCHACA Consult Narrative Reason for consult: low back and hip pain Narrative: 89yom who presents for assessment. imaging reviewed, significant for severe stenosis at multiple levels in lumbar spine. has engaged in a series of provider directed home exercises >6 weeks, without benefit. noting increased low back pain over the last few months without fall/injury. Pain today 0/10 aching increasing at times to 7/10 with standing, walking, yardwork, bending, activity, standing on an uneven surface. Pt noting 50% improvement status post right L4-5 L5-S1 TFESI but continues to endorse moderate to severe hip pain. utilizing tylenol and motrin with mild beneift, did not find relief with meloxicam so he stopped it. cc:: CC: Gracie Mcqueen NP Review of Systems ROS Musculoskeletal Reports: back pain, extremity pain and joint pain PFSH PFSH Medical History Rotator cuff tear, left ?M75.102 - Unspecified rotator cuff tear or rupture of left shoulder, not specified as traumatic (ICD-10) Macular degeneration ?H35.30 - Unspecified macular degeneration (ICD-10) Carpal tunnel syndrome ?G56.00 - Carpal tunnel syndrome, unspecified upper limb (ICD-10) Hearing deficit ?H91.90 - Unspecified hearing loss, unspecified ear (ICD-10) Stroke ?I63.9 - Cerebral infarction, unspecified (ICD-10) High blood pressure ?I10 - Essential (primary) hypertension (ICD-10) Surgical History Hx of decompressive lumbar laminectomy ?Z98.890 - Other specified postprocedural states (ICD-10) 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 - Presence of left artificial shoulder joint (ICD-10) 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) Meds Home Medications and Allergies Home Medications ?Medication ?Instructions ?Recorded ?Confirmed ?Type aspirin 81 mg capsule 81 mg PO BID 08/07/23 11/25/24 History finasteride 5 mg tablet 5 mg PO DAILY 08/07/23 11/25/24 History levothyroxine 100 mcg tablet 100 mcg PO DAILY 08/07/23 11/25/24 History lovastatin 20 mg tablet 20 mg PO DAILY 08/07/23 11/25/24 History meloxicam 15 mg tablet 15 mg PO DAILY 08/07/23 11/25/24 History tamsulosin 0.4 mg capsule 0.4 mg PO Q24H 08/07/23 11/25/24 History vit A 7,160 unit-C 113 mg-E 100 tab PO 08/07/23 History jyqj-oiyr-jhgfol tablet,delayed rel. lisinopril 10 mg tablet 10 mg PO DAILY 08/28/23 11/25/24 History Allergies Allergy/AdvReac Type Severity Reaction Status Date / Time No Known Drug Allergies Allergy Verified 11/25/24 12:43 Exam Constitutional Documenting provider has reviewed patient's vital signs: yes Common normals: no apparent distress, oriented x3, healthy appearing, alert and well nourished General appearance: cooperative HENMT Common normals: normocephalic, hearing grossly normal bilaterally and moist oral mucous membranes Head and scalp: normocephalic Eye Common normals: PERRL Pupil: PERRL Neck & C-Spine Common normals: full ROM General: normal visual inspection Chest Common normals: inspection of chest normal Respiratory Common normals: normal respiratory effort, no retractions and no use of accessory muscles Back & Pelvis Lumbar spine/lower back: straight leg raise negative bilaterally; no pain with ROM and no lumbar spinal tenderness Sacroiliac joints: SI joint(s) abnormal Other: bilateral sij positive garry(patricks), gaenslens, thigh thrust, compression test sensation intact BLE strength 5/5 in BLE Neuro Common normals: oriented x3 Sensorium/orientation: alert Psych Common normals: mental status grossly normal, thought process normal, cooperative, affect normal, speech normal and activity/motor behavior normal Speech: normal speech Thought process: normal thought process Results Additional Findings Additional findings: If on a controlled substance or opioids, I have checked an [place] report on this patient and there are no aberrancies noted in the prescribing history.??If on a controlled substance or opioid a drug screen was completed and reviewed within the last year, and if there has not been a drug screen completed we ordered one today to monitor higher risk, state monitored pain medication use. As part of providing excellent, safe, comprehensive care, the following was completed at our patient's visit: 1. A medication reconciliation and review to ensure accurate knowledge of current/active medications, including asking our patients to inform us about any wibs-uln-ndqwlew medications or herbal remedies/nutritional supplements/alternative remedies. 2. A review to specifically ensure our patients have had annual screening for screening for depression, screening for tobacco use, and screening for unhealthy alcohol use. For concerning screenings had a discussion with the patient, provided patient education, and recommended follow-up with primary care provider when appropriate. If patient noted with a risk of falling, they received education on strength, gait, and balance training to prevent future risk of falling. Portions of this note may have been carried over from the previous visit and updated as appropriate. Please note this office utilizes paper charting in addition to the electronic medical record. A list of current medications, vitals, and PMH is available there as the clinical staff outside of myself do not have access to [facility] charting during the clinic day operations. As part of providing quality comprehensive care the current medications, vitals, and PMH were reviewed in the paper chart. Assessment and Plan Assessment and Plan (1) Lumbar stenosis with neurogenic claudication: (2) Sacroiliitis: Plan The patient has had over 3 months of moderate to severe low back pain with functional impairment and inadequate response to conservative care including NSAIDS (unless there are contraindication such as concurrent blood thinners), multiple oral or topical pain medications, and home exercise program/physical therapy.? Patient has completed >6 weeks of guided home exercise program and/or formal physical therapy program without relief of their symptoms.? I have reviewed the imaging of the lumbosacral spine and no red flags were identified.? The Oswestry Disability Index was completed, and the patient scored a 26%.? We discussed the risks and benefits of the procedure with the patient, and we are NOT planning on using sedation as outlined in the guidelines from Medicare unless there is a documented reason that sedation would be strongly recommended.???The procedure will be completed with fluoroscopic guidance.? bilateral SIJ injection, pt notes >50% improvement greater than 3 months from prior left SIJ injection continue otc advil and tylenol prn continue HEP as tolerated f/u 2 weeks after injection
== END 2024-12-04 08:02 | disposition home or self-care (01) ==
LOC: PM 08:01
PROVIDERS: PCP Family Medicine; Visit Provider Nurse Practitioner
DX: M48.062 Spinal stenosis, lumbar region with neurogenic claudication (principal); M46.1 Sacroiliitis, not elsewhere classified
CPT/HCPCS: G0463

== ENCOUNTER 2024-12-09 11:46 | Day surgery (SDC) | payer MEDICARE, SELFPAY ==
--- OUTSIDE RECORDS SUMMARY | 2024-12-09 11:50 | XMS_ITS | CCD ---
Author Organization [facility] Care Team Providers Care Mining Engineer Name Role Phone NIKOLAI, DR ALY Attending Unavailable NIKOLAI, DR ALY Primary Care Unavailable NIKOLAI, DR ALY Admitting Unavailable Jermain Menchaca MD Primary Care Provider Jermain Menchaca MD Unavailable Jermain Menchaca MD [...] mouth every six hours as needed HYDROcodone-acetaminophen (Meredosia) 5-325 MG tablet Take 1 tablet by mouth every 6 (six) hours if needed 11/06/2023 Active ascorbic acid 226 mg / beta carotene 06650 unt / cuprous oxide 0.8 mg / dl-alpha tocopheryl acetate 200 unt / zinc oxide 34.8 mg oral capsule (1 source) Vitamin C take 1 capsule by mouth in the morning vitamins A,C,V-bpqp-tyrfje (ICAPS AREDS) 14,320-226-200 dqkt-dt-bmon capsule Take 1 capsule by mouth in [...] Ken MD on 11/06/2024 9:33 AM Normal [facility] CBC (INCLUDES DIFF/PLT)on Basophils (Bld) [#/Vol] 0.039 10*3/uL Normal 0-200 [facility] Comment on above: Performed By: #### 1 0231, 7839 #### [facility] [address] [place] [address] Wood Bucker: Naya Guerra #### 7600 #### [facility] [address], [address] [place] [address] Wood Bucker: Iron Nicole MD Basophils/100 WBC (Bld) 0.8 % Normal [facility] Comment on above: Performed By: #### 1 0231, 9020 #### [facility] [address] [place] [address] Wood Bucker: Naya Guerra #### 7600 #### [facility] [address], [address] [place] [address] Wood Bucker: Iron Niocle MD Eosinophils (Bld) [#/Vol] 0.23 10*3/uL Normal 15-500 [facility] Comment on above: Performed By: #### 1 0231, 6399 #### [facility] [address] [place], [place] [id number] Wood Bucker: Naya Guerra #### 7600 #### [facility] [address], [address] [place] [address] Wood Bucker: Iron Nicole MD Eosinophils/100 WBC (Bld) 4.7 % Normal [facility] Comment on above: Performed By: #### 1 0231, 6399 #### [facility] [address] [place], [place] [id number] Wood Bucker: Naya Guerra #### 7600 #### [facility] [place] [address] Wood Bucker: Iron Nicole MD Erythrocyte distribution width (RBC) [Ratio] 12.8 % Normal 11.0-15.0 [facility] Comment on above: Performed By: #### 1 023, 6399 #### [facility] [address] [place] [address] Wood Bucker: Naya Guerra #### 7600 #### [facility] [place] [address] Wood Bucker: Iron Nicole MD Hematocrit (Bld) [Volume fraction] 40.0 % Normal 38.5-50.0 [facility] Comment on above: Performed By: #### 1 023, 6399 #### [facility] [address] [place] [address] Wood Bucker: Naya Guerra #### 7600 #### [facility] [place] [address] Wood Bucker: Iron Nicole MD Hemoglobin (Bld) [Mass/Vol] 13.1 g/dL Low 13.2-17.1 [facility] Comment on above: Performed By: #### 1 023, 6399 #### [facility] [address] [place], [place] [id number] Wood Bucker: Naya Guerra #### 7600 #### [facility] [address], [address] [place] [address] Wood Bucker: Iron Nicole MD Lymphocytes (Bld) [#/Vol] 1.715 10*3/uL Normal 850-3900 [facility] Comment on above: Performed By: #### 1 0231, 6399 #### [facility] [address] [place] [address] Wood Bucker: Naya Guerra #### 7600 #### [facility] [address], [address] [place] [address] Wood Bucker: Iron Nicole MD Lymphocytes/100 WBC (Bld) 35.0 % Normal [facility] Comment on above: Performed By: #### 1 230, 6399 #### [facility] [address] [place] [address] Wood Bucker: Naya Guerra #### 7600 #### [facility] [address], [address] [place] [address] Wood Bucker: Iron Nicole MD MCH (RBC) [Entitic mass] 31.7 pg Normal 27.0-33.0 [facility] Comment on above: Performed By: #### 1 023, 6399 #### [facility] [address] [place], [place] [address] Wood Bucker: Naya Guerra #### 7600 #### [facility] [address], [address] [place] [address] Wood Bucker: Iron Nicole MD MCHC (RBC) [Mass/Vol] 32.8 [...] By: #### 1 230, 6399 #### [facility] [address] [place], [place] [id number] Wood Bucker: Naya Guerra #### 7600 #### [facility] [address], [address] [place] [address] Wood Bucker: Iron Nicole MD MCV (RBC) [Entitic vol] 96.9 fL Normal 80.0-100.0 [facility] Comment on above: Performed By: #### 1 230, 6399 #### [facility] Wood Bucker: Naya Guerra #### 7600 #### [facility] [place] [address] Wood Bucker: Iron Nicole MD Monocytes (Bld) [#/Vol] 0.627 10*3/uL Normal 200-950 [facility] Comment on above: Performed By: #### 1 230, 6399 #### [facility] [address] Wood Bucker: Naya Guerra #### 7600 #### [facility] [place] [address] Wood Bucker: Iron Nicole MD Monocytes/100 WBC (Bld) 12.8 % Normal [facility] Comment on above: Performed By: #### 1 230, 6399 #### [facility] [address] [place], [place] [address] Wood Bucker: Naya Guerra #### 7600 #### [facility] [place] [address] Wood Bucker: Iron Nicole MD Neutrophils (Bld) [#/Vol] 2.288 10*3/uL Normal 5892-2817 [facility] Comment on above: Performed By: #### 1 230, 6399 #### [facility] [address] Wood Bucker: Naya Guerra #### 7600 #### [facility] [address], [address] [place] [address] Wood Bucker: Iron Nicole MD Neutrophils/100 WBC (Bld) 46.7 % Normal [facility] Comment on above: Performed By: #### 1 0231, 6399 #### [facility] [address] Wood Bucker: Naya Guerra #### 7600 #### [facility] [address], [address] [place] [address] Wood Bucker: Iron Nicole MD Platelet mean volume (Bld) [Entitic vol] 8.2 fL Normal 7.5-12.5 [facility] Comment on above: Performed By: #### 1 0231, 6399 #### [facility] [address] Wood Bucker: Naya Guerra #### 7600 #### [facility] [place] [address] [address], [address] [place] [address] Wood Bucker: Iron Nicole MD Platelets (Bld) [#/Vol] 215 10*3/uL Normal 140-400 [facility] Comment on above: Performed By: #### 1 0231, 6399 #### [facility] [address] [place], [place] [id number] Wood Bucker: Naya Guerra #### 7600 #### [facility] [place] [address] [address] , [address] [place] [address] Wood Bucker: Iron Nicole MD RBC (Bld) [#/Vol] 4.13 10*6/uL Low 4.20-5.80 [facility] Comment on above: Performed By: #### 1 0231, 6399 #### [facility] [address] [place], [place] [id number] Wood Bucker: Naay Guerra #### 7600 #### [facility] [address] , [address] [place], [place] [id number] Wood Bucker: Iron Nicole MD WBC (Bld) [#/Vol] 4.9 10*3/uL Normal 3.8-10.8 [facility] Comment on above: Performed By: #### 1 0231, 6399 #### [facility] [address] [place], [place] [id number] Wood Bucker: Naya Guerra #### 7600 #### [facility] [place] [address] [address], [address] [place] [id number] Wood Bucker: Iron Nicole MD [facility] 10-31-2024 Albumin [Mass/Vol] 4.3 g/dL Normal 3.6-5.1 [facility] Comment on above: Performed By: #### 1 0231, 6399 #### [facility] [address] [place] [address] Wood Bucker: Naya Guerra #### 7600 #### [facility] [place] [address] [address] , [address] [place] [address] Wood Bucker: Iron Nicole MD Albumin/Globulin [Mass ratio] 1.9 {ratio} Normal 1.0-2.5 [facility] Comment on above: Performed By: #### 1 0231, 6399 #### [facility] [address] [place] [address] Wood Bucker: Naya Guerra #### 7600 #### [facility] [place] [address] [address] , [address] [place], [place] [id number] Wood Bucker: Iron Nicole MD ALP [Catalytic activity/Vol] 52 U/L Normal 35-144 [facility] Comment on above: Performed By: #### 1 0231, 6399 #### [facility] [address] [place], [place] [id number] Wood Bucker: Naya Guerra #### 7600 #### [facility] [place] [address] [address], [address] [place] [address] Wood Bucker: Iron Nicole MD ALT [Catalytic activity/Vol] 17 U/L Normal 9-46 [facility] Comment on above: Performed By: #### 1 0231, 6399 #### [facility] [address] [place], [place] [id number] Wood Bucker: Naya Guerra #### 7600 #### [facility] [address], [address] [place] [address] Wood Bucker: Iron Nicole MD AST [Catalytic activity/Vol] 24 U/L Normal 10-35 [facility] Comment on above: Performed By: #### 1 0231, 6399 #### [facility] [address] Wood Bucker: Naya Guerra #### 7600 #### [facility] [address], [address] [place] [address] Wood Bucker: Iron Nicole MD Bilirubin [Mass/Vol] 0.6 mg/dL Normal 0.2-1.2 [facility] Comment on above: Performed By: #### 1 0231, 6399 #### [facility] [address] [place] [address] Wood Bucker: Naya Guerra #### 7600 #### [facility] [address], [address] [place] [address] Wood Bucker: Iron Nicole MD BUN/CREATININE RATIO SEE NOTE: Normal 6-22 [facility] Comment on above: Result Comment: Not Reported: BUN and Creatinine are within reference range. Performed By: #### 1 0231, 6399 #### [facility] [address] [place] [address] Wood Bucker: Naya Guerra #### 7600 #### [facility] [address], [address] [place] [address] Wood Bucker: Iron Nicole MD Calcium [Mass/Vol] 9.2 mg/dL Normal 8.6-10.3 [facility] Comment on above: Performed By: #### 1 023, 6399 #### [facility] [address] [place], [place] [id number] Wood Bucker: Naya Guerra #### 7600 #### [facility] [address], [address] [place] [address] Wood Bucker: Iron Nicole MD Chloride [Moles/Vol] 100 mmol/L Normal 98-110 [facility] Comment on above: Performed By: #### 1 0231, 6399 #### [facility] [address] [place], [place] [id number] Wood Bucker: Naya Guerra #### 7600 #### [facility] [place] [address] Wood Bucker: Iron Nicole MD CO2 [Moles/Vol] 29 mmol/L Normal 20-32 [facility] Comment on above: Performed By: #### 1 230, 6399 #### [facility] [address] [place], [place] [id number] Wood Bucker: Naya Guerra #### 7600 #### [facility] [place] [address] Wood Bucker: Iron Nicole MD Creatinine [Mass/Vol] 1.17 mg/dL Normal 0.70-1.22 [facility] Comment on above: Performed By: #### 1 230, 6399 #### [facility] [address] [place] [address] Wood Bucker: Naya Guerra #### 7600 #### [facility] [place] [address] Wood Bucker: Iron Nicole MD GFR/1.73 sq M.predicted among non-blacks MDRD (S/P/Bld) [Vol rate/Area] 60 mL/min/{1.73_m2} Normal > OR = 60 [facility] Comment on above: Performed By: #### 1 0231, 6399 #### [facility] [address] [place] [address] Wood Bucker: Naya Guerra #### 7600 #### [facility] [address], [address] [place] [address] Wood Bucker: Iron Nciole MD Globulin (S) [Mass/Vol] 2.3 g/dL Normal 1.9-3.7 [facility] Comment on above: Performed By: #### 1 0231, 6399 #### [facility] [address] [place] [address] Wood Bucker: Naya Guerra #### 7600 #### [facility] [address], [address] [place] [address] Wood Bucker: Iron Nicole MD Glucose [Mass/Vol] 97 mg/dL Normal 65-99 [facility] Comment on above: Result Comment: Fasting reference interval Performed By: #### 1 230, 6399 #### [facility] [address] [place] [address] Wood Bucker: Naya Guerra #### 7600 #### [facility] [place] [address] Wood Bucker: Iron Nicole MD Potassium [Moles/Vol] 4.9 mmol/L Normal 3.5-5.3 [facility] Comment on above: Performed By: #### 1 023, 6399 #### [facility] [address] [place] [address] Wood Bucker: Naya Guerra #### 7600 #### [facility] [address], [address] [place] [address] Wood Bucker: Iron Nicole MD Protein [Mass/Vol] 6.6 g/dL Normal 6.1-8.1 [facility] Comment on above: Performed By: #### 1 0231, 6399 #### [facility] [address] [place] [address] Wood Bucker: Naya Guerra #### 7600 #### [facility] [address] , [address] [place], [place] [id number] Wood Bucker: Iron Nicole MD Sodium [Moles/Vol] 135 mmol/L Normal 135-146 [facility] Comment on above: Performed By: #### 1 0231, 6399 #### [facility] [address] [place] [address] Wood Bucker: Naya Guerra #### 7600 #### [facility] [address] , [address] [place] [address] Wood Bucker: Iron Nicole MD Urea nitrogen [Mass/Vol] 21 mg/dL Normal 7-25 [facility] Comment on above: Performed By: #### 1 0231, 6399 #### [facility] [address] [place] [address] Wood Bucker: Naya Guerra #### 7600 #### [facility] [place] [address] [address] , [address] [place], [place] [phone] Wood Bucker: Iron Nicole MD LIPID PANEL, [facility] 10-21 Cholesterol [Mass/Vol] 158 mg/dL Normal <200 [facility] Comment on above: Order Comment: FASTI NG:YES FASTING: YES Performed By: #### 1 0231, 6399 #### [facility] [address] [place] [address] Wood Bucker: Naya Guerra #### 7600 #### [facility] [address] , [address] [place] [address] Wood Bucker: Iron Nicole MD Cholesterol in HDL [Mass/Vol] 45 mg/dL Normal > OR = 40 [facility] Comment on above: Order Comment: FASTI NG:YES FASTING: YES Performed By: #### 1 0231, 6399 #### [facility] [address] [place], [place] [address] Wood Bucker: Naya Guerra #### 7600 #### [facility] [address], [address] [place], [place] [phone] Wood Bucker: Iron Nicole MD Cholesterol in LDL [Mass/Vol] [...] LDL-C. Jaycob SS et al. SUSAN. 2013;310(19): 4992-8762 (http://education.TravelLine/faq/RCD239) Performed By: #### 1 0231, 6335 #### [facility] [address] [place] [address] Wood Bucker: Naya Guerra #### 7600 #### [facility] [address], [address] [place], [place] [id number] Wood Bucker: Iron Nicole MD Cholesterol.total/C holesterol in HDL [Mass ratio] 3.5 {ratio} Normal <5.0 [facility] Comment on above: Order Comment: FASTI NG:YES FASTING: YES Performed By: #### 1 2701, 6379 #### [facility] [address] [place] [address] Wood Bucker: Naya Guerra #### 7600 #### [facility] [address], [address] [place], [place] [address] Wood Bucker: Iron Nicole MD NON HDL CHOLESTEROL 113 mg/dL (calc) Normal <130 [facility] Comment on above: Order Comment: FASTI NG:YES FASTING: YES Result Comment: For patients with diabetes plus 1 major ASCVD risk factor, treating to a non-HDL-C goal of <100 mg/dL (LDL-C of <70 mg/dL) is considered a therapeutic option. Performed By: #### 1 0231, 6399 #### [facility] [address] [place] [address] Wood Bucker: Naya Guerra #### 7600 #### [facility] [address] [place] [address], [address] [place] [address] Wood Bucker: Iron Nicole MD Triglyceride [Mass/Vol] 99 mg/dL Normal <150 [facility] Comment on above: Order Comment: FASTI NG:YES FASTING: YES Performed By: #### 1 0231, 6399 #### [facility] [address] [place] [address] Wood Bucker: Naya Guerra #### 7600 #### [facility] [address], [address] [place] [address] Wood Bucker: Iron Nicole MD XR Pelvis 1 or 2 [facility] Result: 01/16/2024 AP pelvis demonstrate well healing healing right pubic rami fracture and healing left acetabulum fracture in acceptable alignment with increased callus formation. No signs of displacement. Impression: Healing right pubic rami and left acetabulum fracture. Lita ST [facility] Digital Radiology Study observation (narrative) [employer] Custom XR Pelvis 1 or 2 [facility] Result: 12/19/2023 AP pelvis demonstrate healing right pubic rami fracture and healing left acetabulum fracture in acceptable alignment with increased callus formation. No definitive union of right pubic rami fracture. No signs of displacement. Impression: Healing right pubic rami and left acetabulum fracture. Lita ST [facility] Geddit XR Pelvis 1 or 2 ViewsOrdere d By: Enrique Rutherford on 12-21-2023 View[employer] Work Phone: XR Pelvis 1 or 2 [facility] Study observation (narrative) [employer] Custom XR Pelvis 1 or 2 [facility] Result: 11/23/2023 AP pelvis demonstrated stable right pubic rami fracture and healing left acetabulum fracture in acceptable alignment. No signs of displacement Impression: Stable right pubic rami and left acetabulum fracture. Lita Silvestre APRN-DARLENE [facility] XR Pelvis 1 or 2 ViewsOrdere d By: Enrique Rutherford on 11-24-2023 [facility] Flashstartscar e Work Phone: XR Pelvis 1 or 2 [facility] Study observation (narrative) [facility] Provider Orderson 07-28-2021 Provider Orders [id number] [facility]-2021 Consent Forms [id number] [facility] Pre[facility] Recordon 0 07-02-2021 MAG[facility] Preoperative Record MAGR Pre-Op Record Summary Primary Physician: Enrique Rutherford DO Finalized Date/Time: 07/02/21 15:05:59 Pt. Name: ENRIQUE MIKEO.B./Sex: 1935 MALE Med Rec #: [id number] Physician: Enrique Rutherford DO Financial #: [id number] Pt. Type: O Room/Bed: [facility] Admit/Disch: 06/21/21 05:54:00 - 06/22/21 12:10:00 Institution: [...] Signed By: Isabela Soliman RN 07/02/21 15:05 [facility] Coding Summaryon 06-28-2021 Coding Summary HTMLBase 64 MwgmtoggQNd4iRs+PGhl YWQ+HH0LAPYmX06wzOFx hD6CM0bYLT4GWHKZINEN AV9TKB6uqYJ8JXesS2Wh biAv ZvsvxLDlNW42GFs4DLB6 iQxxPHefsA8zkRNdL6j9 DdFiWU64eX67HQczIDFg DqX5LjIomuedpGNx E7evYfEgbHFmDce+PHRh YmxlIHdpZHRoPScxMDAl QjXukVqqAX3dZr6uLDSb LWNvbGxhcHNlOiBj c6qlRNZeMUzlND9blFir F4XteIK5BGFmw4t8Eh70 dHI+DPVyIZV2cOlcHNst x628OtQrd2mbPQA0 eZZtPYywLUE1D32nn7M4 MMMaQAPcFGT5mYJ8jF7l hNmzlqmqN0WyzVEfZjT6 GJH7rMKikL5byMxh cbmoaL5wRbv+B46JNH1T XIYCXV1HLaa4N4NcUxrn dHI+DD01SCWqGQ86dRAx cMLsi2icwXg1KrSl TXNnNWU8eNxiMXzbz5Wq ONHmZ73dmMAqp6C0WTPi hWgdoMIpEfPspVK8bO5z OCqrequmb2dltgho Alyel5dlow43xN46K81c EHkfURMjRUL3QDJiFKLl dEzunb8zjK8sAd9+IDxj g1xnn8vwzOd7PiPz JVVhclMeiHznIDE8l1Fo Mp83Z0EikLzoe3GdAla4 vk05nGKnn6Z1cOJ7KPgd HQAsgD8uTCimEpO4 CWYvOjIbsV30sUJnAQdz Ik7cqEhidWpzJV4sORJe beneDPYmtF4vRPNzoAGw vToaBK7gOWReglis u830MiXaIIL3GPClyGZv W7DteD3rOsCpKOPbHMVc X7WjqAEvGMjzW319OPfv BeW4BNFxqbNbN6Lt GBNbzDfzYoE1y2M4Lv0B w0UjxkjfYOR2VMnbYIM7 WvV0XqUjGmL9A2OmEtp4 EIEssUaxUR8yG7Bg LEBstallargwkNF4JTYl BWTelS91oXHdYSheJb4x u9D1w507FMKxPKKisZ95 Mm1giSdaYUVwcEVX kG1gjvehq1vcrtfgFkAk SJTdOXn5XDs2WPOgpVpu JbBwCKK3LuA9WWY1xQQz gW4vbRcslrceiA6q Oyc+J55mrL6fVCD5EYQ8 qtgwZVZssmHfMO20UX73 W6LbBnvhjPRnhFK+PGRp zsNppUtaUG7mByNb u2ipk5HqRSwdG2KvRFWo FOvkNsl0FFBeKXN4kVO9 uW8gXXDnFQedk1M2cPQ1 I0VdzpUyda8no7fv UAOrAUmbN86awSGox1T1 KWYmzOR7BXSvyVwdOyDe iD33Zhy+ISTniWbmr3Ye Byenu1vpx8etpHn6 IjMwJSIgdmFsaWduPSJ0 f0IwLj96K90eXHdsZPRf IIHgYXVrRKZiqMulcb6x iL8hWn9+PGNvbCB3 oGO4uD0xAEHiCkA7AXgt W852XbQisQMqDysly1mb z3aqkDi1JcYeFWGchbBj rBhvKPF9v7ZzFl91 B16oTXbtCSTbTIWjILZt RURefTefpu0nhD0hRc0+ OX1bk4xwos99bI64oFB+ LWSzZFO3eMzaGWht FAKskV6hUVoeVwO5MBVb GpOicM51nQZjJEsdEj9j wRqnoHjvXN5yVYWeisvp v822GmFuz7pfTTRz uKBpOVjaKBK7N35ya9V4 KWYhIVRbFFI3uID3zS1j bGlnbjogbGVmdDsgdmVy kFguQAtgOGjzZ375 IHRvcDsnPlBhdGllbnQg XfYsRZk6C4WwAqz0QCJw pGbyTQ3ujMVnFQglJk5t jOxkiPfoFW0gCIUg gaouo880MuWyc7riDXPj jXGdYBqgAAT3J20it4G0 XJEqTSMfYDA3oTS3dY7n bGlnbjogbGVmdDsg ypXmjWbiLImaWNanL148 IHRvcDsnPkJpcnRoIERh bCV2KA66QB09rPZhw2M0 rFT2I5EfWGWioggt pbmzdCH9SMBhAJUkzM17 Ek3fjIfpBg5gPROaBHI5 VWKkuQDdK6KybB5tGwEy QUJbKCLrN1JonXLk RDjxD376KIjtIzF1NNSw shAwS4LuYIQoxBjdKaB4 y5A3Zn2XK1R2JJ32NR28 xOAoz9Y7qDD0S2Cd TBYpbvutpdnodGY9IFJr TZHgrA47Dw9xyRknLd9b TZArJOC7LROkeROwV1Mj wJ6yWeBuUEYuVOUy O0DpwKWzBAyyY275LRwj EmS2OCDfomPsW1JhMCEk qHyqPoH4a3R9Af8LBTv5 JT09VA93lNImt8W8 nBQ4Y0FuZRZymlmedivz bNK4AHMeTOGwgS43Qi0z wLfmFt8sXMJmYIQ1TFEr kVRaV6QebZ7vNcXk TTLmRVFfZ0SscJFtTRcf X623JRgnTwP9ZVYltsNe G6UuFMCfeAwzOhE8c2O9 Cy5KJBVmJI95PII1 cLF9MT78BG36A2JaOzjt dGFibGU+PHRhYmxlIHdp ZHRoPScxMDAlJyBzdHls MQ9zUu6dLXNrBPQs fGmlwKGdOlHax9waRDPu FUshHS3gcHupA1VcfKE1 EGOis1d5Tj63C18uB0Qg dXA+OZVooLC2aWA1 cZ9dEdQbQlG5YHweC443 FhLicXBjPddib5toa4sy gVc4XuI2WUHbbtLubKwc LPT6d1PgXm48Y32p IHdpZHRoPSIxNSUiIHZh eYbpxe7slD1bZs6+PGNv yGI9lPP2xG7yJdZgVgH4 QZpbI513AaHbpQVi Ddcic0neu7ziyVl2KiKx MVFimsUuxVgwAZJ7e1Ub Ns28Z2OzuOkht7TvCdn6 nu54yRBlx2P1pBM3 X5AkCUPkwissyYQqdIny DS8rRPGuiwftUOYyeP0k QBZcM2x2UfRnSiP5YCog H8RqqpO0HBGnkVTk PDsaZVW8Z01tb3F6DVKr NNMdNEE7yMI7oM6dpQzi bjogbGVmdDsgdmVydGlj FZbiSByqM680RBIz qHuzENOtzG0aAZQpoKTd fUlqUX7mVZLeldkjTzNJ NzWjDSsKEUKADGR6P8Oo Rwj7IQBbpUfjDI5y jGNpEPbuGl9jjNlnwMen FA2oZJKlvyqeXMLmuL7z NTKptVHsiXrxNS8lXISm nelfh645TbMxUYP6 TTRjiRLnH7GqmX4fTyBe IMLzHTIoI6QpkTXpZYti U037JXahYwG5PZHgqpPs Y4RgDLNdqFsvXjI3 m7A8Xz1vMc1tCI9tEKS6 HM23BZ05aKJfp7I6fQE0 F9RcIMTmcsdwvpupsPJ1 APLgXYYxlY25zUQv DStwRj4om9R7c291ODEk NUWqqP78Fh6fhBuvCUXt kOLHtR6lrzwwk7ojjcnr AlWiSUKzZYk5LMq5 WZEuaOaxWuHcWBZ9GfO7 LHM3eKZtcW9brVlzkfdy lW4yMjl+ODQgWWVhcnM8 C7RkIip5CNVwqKov KA2aaQNyRWhqHs5hzJnq pIwiGR5jECJcoqywELMh qJ2bKKYrqRHlkMhjUQ9h ZNJijvine316SxRi VGT3QNYddQUtL1LegY5c OnPxFZShNHAfQ2TscISv APofL211PVyuTeG3DCUj dvKiA3KqSRSzlDfd AlR5y2H3Oe8YYWdVHD16 HV80ySAyn8S2wLB0N7Gh JAGdrbigikyjcRL8MQRr GQGdxM62sJQhFZyc Rt2jp6W0v404AMUsUCWz bN12Pq0knOwrJEBjfYJI wW1phxjqa1nwndyfEhJb CJNgFVo7WYe1HEXi dLamEgTbCIT0HwX0RUU3 mALrrN3siNrnundazN1w Oyc+R0HqYFQ0CQHob775 K1LhHilzpZM+PC90 YDSySE33xFJovQWdw2wd rHz6ZiQeTKZxFTM7mNfc LGoga0HwNYCbT05zgWLr o0Y9LDVlrNjkpAMg DvOmjRF0pK6cZUaqukpg r7majodyCepvh7ahwa16 zE78I99uTIccSLIvWEJj XQEqALTgrTbvzq0o wZ7aSz8+NBJwhQU5mME1 nD6xFsTtKaA4QNgqS763 EbBrcVDoPpvkt9mza4nm yXb2XuGeRIGiamXc aUheZMK3c2EiUb97S12c IHdpZHRoPSIyMCUiIHZh hXovhf3mjE2sWv6+PC9j w2clfr55dS24eGU+ ZYDwOMG5oWjbSOynCXFu eC9jZStyWsG3YIEmBbTe nW40jEJoISgzQp4elMul jVwxEO9dLXWmvmig v301UaIdr8kfBBAozEIr RLvoADQ8Z12wf4M3GUOw SQSwPDR2hOZ7bG5upKdd bjogbGVmdDsgdmVy kOvpBXloSGbaF247DYGm xXbdIfKsmAMcI4lkdnFN RS4aZmgfcDU+PHRkIHN0 aSaqCSuiZVXxtF9p TBKjT9o1RtJmVkF8TJgg G2GyppS8OMVwkICbDJWd rEUJhX9srkjde1fcouzx IkUeUQPeHZu2GDn8 KACanOzhUpNjUMC5UoP9 QNA5aSSwmB8hiAirujzc mB5tGqr+RklOOjwvdGQ+ SCZmQMY7vCrmKCui UBIxeN7mFTClX6n5ZoTi RlQ7BUizA2MqgcG3PHAp pIUgGBKyaVQKaF0umxhi u2gpgjnyJfVmTWTc EEs8MEq2ZCFkpHchOfHy PII9ZjG0HSE0mKYvcX0z fZagqbpwuI7zXqo+TVJO OjwvdGQ+PHRkIHN0 fHaqSPaoMAVchK1rGOHf K5y4CaIqUmZ5LDzeZ4Co caL3VYBztHKbIGLynMGD mE3ljinsy0yshjzu SmFkOKPiFAa6YVj7OHSy tDnoNfFpKTH6XkO7KKB0 dOVycN5ciSisohyenP3t Oyc+QXJ7VNV4UC18 CY52B9TbGzrbuPBzeYL+ PHRhYmxlIHdpZHRoPScx LQUwOzUlzItkJG2vJn9y ZGVyLWNvbGxhcHNl OiB (more content not included)... [facility] Consent Formson 06-23-2021 Consent Forms [id number] [facility] [id number] [facility] Tele[facility] Strips [id number] #[facility]Specialist Note on 06-22-2021 Consultation/Specia list [...] on: 06/22/2021 07:09 EDT] BIB [facility] Inpatient Patient Summaryon 06-22-2021 Inpatient Patient Summary [place] [id number] Patient Discharge Instructions Name: ENRIQUE MIKE : 1935 Patient Address: [address] [place] [id number] Primary Care Provider: Name: JERMAIN MENCHACA MD After you are discharged if you find you have any questions, please, call [phone] ext [phone] to speak to a nurse. Discharge Diagnosis: [...] alcohol and/or drug addiction problems; contact the [facility] 12/09 Crisis Hotline -Text 4HHZR fq [phone]. If you received any narcotics, sedation, or [...] business decisions or sign any legal documents [facility] would like to thank you for allowing us to assist you with your healthcare needs. The following includes patient education materials and information regarding your injury/illness. ENRIQUE MIKE has been given the following list of follow-up instructions, prescriptions, and patient education materials: Follow-up Instructions With: Address: When: Enrique Rutherford [address] [place] [address], [address] [place] [address] [facility] (1) 06/29/2021 10:45 AM Medications During [...] list. Medication mariana (more content not included)... [facility]-22-[facility]21 MAGR Postoperative Record MAGR Phase II Record Summary Primary Physician: Enrique Rutherford DO Finalized Date/Time: 06/22/21 07:37:50 Pt. Name: ENRIQUE MIKE/Sex: 1935 MALE Med Rec #: [id number] Physician: Enrique Rutherford DO Financial #: [id number] Pt. Type: O Room/Bed: 221/1 Admit/Disch: 06/21/21 [...] Signed By: Karla Moss RN 06/22/21 07:37 [facility] Progress Note - Nurseon Progress Note - Nurse Pt discharged to home. Taken to awaiting car via wheelchair. Belongings sent with pt. [Electronically Signed on: 10/06/2021 14:53 EDT] Emily Kennedy RN [Verified on: 10/06/2021 14:53 EDT] Emily Kennedy RN [facility] Progress Note - Nurse Surgical dressing [...] on: 10/06/2021 14:53 EDT] Emily Kennedy RN [facility] Progress Note - Nurse Shoulder block wearing off. Pt able to move his wrist and forearm. unable to wiggle fingers but tactile sensation intact. Circ checks WDL. Pain level 4/10. 5mg Oxycodone given. [Electronically Signed on: 10/06/2021 14:53 EDT] Emily Kennedy RN [Verified on: 10/06/2021 14:53 EDT] Emily Kennedy RN [facility] Anesthesia Noteon 06-21-2021 Anesthesia Note Patient: [...] on: 06/21/2021 11:47 EDT] Rod Ann DO [facility] Anesthesia Note Patient: ENRIQUE MIKE Age: [...] = 50 mL, 100 mL/hr, IV Piggyback, Income Tax Auditor LR 1,000 mL: 20 mL/hr, IV Lidocaine 1% injectable solution: 0.1 mL, ID, Once, PRN: Other (see comment) tranexamic acid: 1,000 mg = 100 mL, 300 mL/hr, IV Piggyback, Income Tax Auditor tranexamic acid: 1,000 mg = 100 mL, 300 mL/hr, IV Piggyback, Income Tax Auditor Documented Medications Documented Aspir-Low 81 mg oral [...] (basal cell carcinoma), face / SNOMED CT 5233069594 / Confirmed Hypertension / SNOMED CT 0323354716 / Confirmed, Active Problems (2) BCC (basal cell carcinoma), face Hypertension Histories Family History: Entire family history is negative. Procedure history: Goiter (8156343). Back fusion (903532672). Chest tube insertion ([id number] [facility]). Comments: 06/04/2021 9:17 EDT - Elvi Barber RN left lung 1998 Inguinal hernia ([id number]). Rotator cuff (41938788). Hammer toe (006846179). Social History Electronic Cigarette/Vaping Assessment Electronic Cigarette [...] / Management Results review ECG interpretation Plan [place] [employer]#(A SA) physical status classification: [...] on: 06/21/2021 07:57 EDT] Rod Ann DO [facility] MAGR Intraoperative Recordon 06-21-2021 MAGR Intraoperative Record MAGR Intra-Op Record Summary Primary Physician: Enrique Rutherford DO Finalized Date/Time: 06/21/21 09:51:01 Pt. Name: ENRIQUE MIKE/Sex: 1935 MALE Med Rec #: [id number] Physician: Enrique Rutherford DO Financial #: [id number] Pt. Type: D Room/Bed: [facility] Admit/Disch: 06/21/21 05:54:00 - Institution: Case Times MAGR Entry 1 Patient In Room Time 06/21/21 07:28:00 Out Room Time 06/21/21 09:43:00 Anesthesia Start Time 06/21/21 07:28:00 Stop Time 06/21/21 09:45:00 Surgery Start Time 06/21/21 08:06:00 Stop Time 06/21/21 09:37:00 Last Modified By: Brenda Constantino RN 06/21/21 09:50:58 Case Attendance MAGR Entry 1 Entry 2 Entry 3 Case Attendee Enrique Rutherford Jacquelyn RN [place] FOOT SPECIALIST/CSFAEliel FOOT SPECIALIST Role Performed Surgeon - Primary Brimmer Blocker Journeyman Level Acoustic Analyst Time In 06/21/21 07:28:00 06/21/21 07:28:00 06/21/21 07:28:00 Time Out 06/21/21 09:16:00 06/21/21 09:43:00 06/21/21 09:16:00 Procedure Arthroplasty Shoulder Arthroplasty Shoulder Arthroplasty Shoulder Total Reverse(Left) Total Reverse(Left) Total Reverse(Left) Last Modified By: Brenda Constantino RN, Jacquelyn RN Burns, Jacquelyn RN 06/21/21 09:43:07 06/21/21 09:43:07 06/21/21 09:43:07 Entry 4 Entry 5 Entry 6 Case Attendee Vivian Newman Regina CSFA FOOT SPECIALIST Rod Ann DO FOOT SPECIALIST Role Performed Journeyman Level Acoustic Analyst Scrub Personnel Anesthesiologist of Record Time In [...] Entry 1 Ski (more content not included)... [facility] MAGR Intraoperative Record MAGR Intra-Op Record Summary Primary Physician: Finalized Date/Time: 06/21/21 07:33:10 Pt. Name: ENRIQUE MIKE D.O.B./Sex: 1935 MALE Med Rec #: [id number] Physician: Enrique Rutherford DO Financial #: [id number] Pt. Type: D Room/Bed: / Admit/Disch: 06/21/21 [...] Klaehn, Margaret RN Role Performed Anesthesiologist of Brimmer Blocker Brimmer Blocker Record Time In 06/21/21 07:09:00 06/21/21 07:09:00 [...] Flow Ra (more content not included)... [facility] 2 [facility] PAC[facility] Record [facility] Record Summary Primary Physician: Enrique Rutherford DO Finalized Date/Time: 06/21/21 10:37:04 Pt. Name: ENRIQUE MIKE/Sex: 1935 MALE Med Rec #: [id number] Physician: Enrique Rutherford DO Financial #: [id number] Pt. Type: D Room/Bed: [facility]/ Admit/Disch: 06/21/21 05:54:00 - Institution: PACU Case Times MAGR Entry 1 In PACU I 06/21/21 09:43:00 Discharge from PACU 06/21/21 10:28:00 I Last Modified By: Isabela Soliman RN 06/21/21 10:36:28 General Comments: Pt awake and oriented. VS stable. Transferred to room 221 via bed. Finalized By: Isabela Soliman RN Document Signatures Signed By: Isabela Soliman RN 06/21/21 10:37 [facility] Nutrition Noteon 06-21-2021 Nutrition Note Pt admitted for scheduled Lt shoulder surgery. Diet already advanced to a Regular, ate 100% of lunch, No wt hx available, denied any wt changes on practice advisor assessment. 06/04 pre-op labs reviewed, mildly elevated BUN noted. Pt at high nutrition risk r/t age greater than 65yr, however, no foreseeable nutrition concerns at this time. To follow. [facility] Operative Report - Surgeon/P catalina 06-21-2021 Operative [...] on: 06/21/2021 10:15 EDT] Enrique Rutherford DO [facility] Patient Handouton 06-21-[address] [...] or concerns, please call the office at [phone] -Follow up as scheduled [facility] Progress Note - Nurseon 05-0 Progress [...] on: 06/21/2021 14:30 EDT] Phyllis Kasper RN [facility] XR Shoulder 1 View Lefton XR Shoulder 1 View Left EXAM: XR Shoulder 1 View Left HISTORY: Status post Shoulder Replacement COMPARISON: None. TECHNIQUE: Single view FINDINGS: Normal alignment and unremarkable early postoperative appearance left shoulder arthroplasty. IMPRESSION: As above. Final Dictated by: Eliel Garvey V Dictated DT/TM: 06/21/21 4:52 Signed (Electronic Signature): Eliel Garvey V 06/21/21 4:54 pm Technologist: MARIELY BENITEZ [facility] Comment on above: Order Comment: barbara cabrera status post shoulder replacement Coding Summaryon 06-18-2021 Coding Summary HTMLBase 64 PhhmoeeyNVz7jXm+PGhl YWQ+XD6RGDGzF89lpTUc tT2WP9vNJK2CIJHRJQVW BU9CRI7fqSL7FSxnW7Sf biAv TzntlKZkEU40FRh6JHE5 vWtcUQivyS2saKAoZ0m6 EgNdHK69pA60HQppTZSd RoY6SwPugfggiXVj L8syItYadDAeBzi+PHRh YmxlIHdpZHRoPScxMDAl PkGewJwfFX3tRu9nDPSy LWNvbGxhcHNlOiBj a0gbMTOeYKdbZT1vbBwz M1TkqTM6GAFvc0h7Og25 dHI+ULYnTRY3lWbtCTlh h830LyQti5alIWX0 sUEeBSezVLZ3E83fb4B3 RYTkELNgOFE6pDG5eM7v nUglxngsG2GfjICtHiU4 SYD1zIWtlF3wwNha ktmxmP3qAoy+B22ITC0O UMZPIU3SBvy6Y3ZeYoge dHI+KX32XUHvBF98yWIk eUUck0iljNu6GhHc VEXzUYR5pDzzFUhsd2Dl TFKsT17ggUDsq3M8BCMy hWgfwBBaCzQlrCD0eS6x HFdnsepis4auloda Ubtyh0wkha84jS17A85n HRntXBUnTHS3GVBfORHf bTegaa5oiR9bEo0+IDxj l1hfa6bwoIj6OjVi MXEhgzSrkCzqLGY1y8Ky Tf82D2DmgYptx6BuJqr7 cc06nZMmj8C0xAF2UGez WLZmcO9mKCvqKqL1 KUDiRuLwgL30fWYqKMgz Qb3auGqwjMyxIR6cIUPl dhluNTMzqI6hPRMleZHk sRtnNO6lIGEctxiz t020CyZyOHL0HQJasZSw N5PjiW9aGgVhDJJnEXWk X4MznRTbWTqqM586HAtr MhU3XZLuxgKsA9Bh VFFunKhkHpF7i6F4Kt8K p1RuayzfKPE4MScbUMR2 InA0VnIbXnC3Q0ClVrg9 JXFlzLcbPF8oL9Mf XAFymtbgwqlprRW8WECo JRCqsY36kMXwKNdwZz6y o9S2y909AUNsDZSisF98 Yi6egGxsMWWbjIWX xM8fdvtfl3eumkjsJtAb FYOdCPs8GNh1BHBczMdz ZqPyFDT6FrY9ZSM8dWNm rW4wjJnhmytprS9e Oyc+E64xhF3xWNF2RWJ9 wghiJFUvqcAoNU68MB54 A6BiSxbepMEotKL+PGRp duOpsPawGJ5aIuYo y4fgw1LlWMsoK4JiSMNl PDcwXpm7LMXaWYR9mBE6 vU7gNBLnSTwub2W1xZG7 K5QqvyOaaa2kp0rn HJMsDOwrG38hcTEdx6H1 JUGmqGE8QCAbtBipAtJk cA70Aig+OXTgmFbgi0Yi Ipqoz2tqx4zhzQw1 IjMwJSIgdmFsaWduPSJ0 n4LeYp32C30oWAcaPPYb YPMaERVuAIIvwSxqfw9a gW4sVb7+PGNvbCB3 dJD1eU9kHYRbOcF4KJze D321VqDstVYfZkpfg3pq c2puiAi8FdGuVXKqcuMy oZvjPUJ4g5KiTl63 N66eKKzjZMXlZMKpEXUi NPGfiAixcb8noM8pOc7+ JJ8qv2zcuo25uG12uGU+ RRXzMES8uDoiUQdw CYRwbK7qPEsgBgE5BYCp FwUwfJ84kPChNQsbBg9h yCgunNjcWP7hQHTedhaw u560OfWkd1udTMLg pLKfCEvvIWQ5A14et3I7 XOUaXJKkPVO7pBJ9yN0m bGlnbjogbGVmdDsgdmVy vJpdJYfiKAabI907 IHRvcDsnPlBhdGllbnQg ZjYwPRk9B5FcZuy2QQBb mZysSS8seSWzCRvcZp6f aQiqdValUB9gUMLn zshuw081UyJfq5aiTMMx pOUnISuoCWB6Q25ef5W7 LPSzKPDkEGL4iPY0xK5u bGlnbjogbGVmdDsg kyDthBsqSEyoCMfoF482 IHRvcDsnPkJpcnRoIERh iDT3SU04VC32tHLhn5L5 fGD9W4SkLEXuhalo gltodMQ3QQUcTUYrpM88 Gj9dmIofCx4kHGBjUSP1 JZUxjEQaK7GdfW2hWzIi OFHdHJYoI0IyqZCw VKkaZ752VSikDlK7PONc qjEhN5GrYTBbzTppHhC2 p0F7Sv0EX4M6LK15LU82 sRByg6B3mTQ1O4Ux QOEbkpxoekkduHS3FNWx TSYkhA34Jt1dzFeuCu2q AJFlDWQ6QSFfcKTvT6Pi bY9rGrTzSMBoWRXd T1BibQIcUUqwD420FYik RuA2LTLjleZnW9YcEWOg zSihRlM2u6W5Gl0LXOg8 CH77GZ08yJBbz2U6 qPU5H7FxPOSroerxwnet tTZ8YRLiQXVvrF23Qf4p mXgcFh0gSWWgLWE7YCYs eVThZ9TotS2fRvGp KNNtMWBuN8CpsVMhVCad L757SKsrVrR9EWUypyWr L6SgBQNydHseHlM6z3X6 Px8XONBnHH82PKK8 qQM6LM46LC92X5SoTjmx dGFibGU+PHRhYmxlIHdp ZHRoPScxMDAlJyBzdHls IT3bZb7aMFZdAUSa rSulqWCyAdLxu5hxOREh YMaaJY4zzCffE2FehQR2 ZELcn1m4Mo52Y19mT8Jx dXA+TKOdoNH4pJD7 vA2gHbAtGzJ8TNwjJ397 XlVupQYiSdkxw7xjq5rc tAv7EfN5OUFuglZsiVjv ZJQ0j1RqFw95Y18n IHdpZHRoPSIxNSUiIHZh kRfstd4nhC9qUc4+PGNv xKW9sZB6qT7uQjUdBpH1 QQrjM615KnIucEXx Igrwx6scd9bdjTn6IpUm YHNvibOsmPeyKEX3v5Ee Dz53O8XcjNsdu2LyKga4 iv52vUIug6B2fWU1 Y5HrNDMzymezhCNmqUei DG2tKCDjrivrAWEtzS6r XQIaP7s5PjKuWyV9WVcv S4WocrL3PWSfsJRq UFuzCDK0M64bl4I2QMRo KOTdUOM2jFN5eK9fuYrt bjogbGVmdDsgdmVydGlj AInjIAhxK741HHEd bZwsFPHfnL2eUEObuYMy oXshMY8iKERqcrawFqAL PrZiQGxMSXPYMQY7C5Ak Wgd9LHJmkPqnIN0y eJGdMYhuYg4caSaamFet YN7xJHXjteqrESSrcQ0p CNFdgQQgbMudVQ7uDJUu icmdi569TsMvTYU9 XYXzzMVpR0YkwM8aEdJy PULoSWMgC2DzoICpAOir R068BSzbLxK9XQQaqpPo D8GrWRTquZslBvH8 i8D6Ki0vBa5cDQ6eNBS3 UN27IN60oNHzn3O0lAZ4 C5YqPETqrggjwpiijMU3 LYMeNFOsnL60iUPl YJewMw8eg0L1c316VRQc QYUavR59Cb0duLgbQVOe zSXLbK5ubijvw2aeubiu PpCeBWRdADe9KXj6 WJUijBlaIoFwVDR7LoM3 KKT4rMFvwW9ykYwsvjvp jB2nHul+ODQgWWVhcnM8 W2SbSel2IJAyjZdu ZE0vwRNbBMvdFx1ntZtq eZuoFX7hPKDggawvCJSq fZ4sJUUklREhwZjlHK5q QHGeskgwq668HwHf FRD4TEFyzFJwX8KchV6a JhTxZBGsPQKqZ4PltVYp KChoP504QJlgFvQ4HTEj luEzS0KaTTNqeJmh KbB6y1U6Af6JCNiKJY61 CJ41vOTdt8N4qNG3C8Te NLTognondqpwxVI0TVYn UQYagU88zARjZWwx Nn7xt6A2e104XFNuGMNd kH20An1ciFftJNZlpFTN lT7bnkyqf9oinfzqYzIw QTVoVVk3PYi8JOMy sPtnIbQcSOZ0IqB5LMP0 lVUinF7dpQtoyppnfT9e Oyc+B8V6J9AfYdocgYU+ GT15ESNuVF45qFJt yZHik6kumBn8YgMvUQPq APW0yZmdWYegl5VcENCx B76swPFoc2U0TKQdxBxg xRPpQsUwaJZ4sB5n OEjjjtxpb5qrzasrVvcm h0kdvj04mI28I67rZZjq ZHRoPSIzMCUiIHZhbGln iy4bbF1eKd1+PGNv mPV2nGX3jF8vBaEfHsO1 CZntI433QhNbyKRnFmzu g5fkn2kjuNx8IhYqMZZy oxVbpZtfULJ3e2Dv Pt08O45uSJniJPQwWLKf MSGfMHMenOixoj7ykO1c Ii8+FS8gj8rqqj42aS18 dHI+FTPgLKE9oWyd ZVxeFDDrlB5gQFusQrY4 OSJpSvPxaU49iIJyTQrt Du4jzPsgsSuwAJ8kSDRz qkddy745WrNyl8ey TFVlhHMjSPnvLIU2M41g m1O2KFSgMIZyMVS4uWF3 pU9xtAoxcquicMDlsZpg dmVydGljYWwtYWxp K458DZSscBkfIeQghRJe I0iswfELBU7nSyrlsZP+ UTGkLUE7sMlhTWkmOMZd yK6xSRWkB6q1IaGv UcH3ITwyJ2AuccZ8TFLf uQRyWQAsxCPTsR9nxhis g2eokuwmTyUfATIuROi4 RTf3ZITyoBjsWdKf OKU0ZnZ4XDC0vSEphL8k cOrflveucL2pPod+RklO OjwvdGQ+WNPxJZV3gYkp UOifOQFyrT5zNHNp U7y4HoMbCiW0VOjfA2Kh umO1BXBhbWHoSJKlvWAN sG1eqnsbl4psxssiYtMt UXJvDJj3ANz3OYFf aHqaDwHwNLK5DdB4TMY2 yALyqT3bbEbrqvtozH7m Oyc+TVJOOjwvdGQ+PHRk HDX7nXuwTDujRUHz kU6hUPJyP7u6KmJhNjB7 CJfpZ2GxgzZ5WDDloQYh MQFibSPMlE1qvmzzf5ao cjogIzAwMDAwMDt0 TUp6ZOQklBnwCuUcFSZ1 AxD0HJD3rBDvfU9lgWmp ujyawK1mXsi+QPE6JUR7 QG08JS22P5JvTwae dGFibGU+PHRhYmxlIHdp ZHRoPScxMDAlJyBzdHls WO0yTr7oJHKuYIZibBom fFNjBgEzt0frQPKt ZTs (more content not included)... [facility] Progress Note - Nurseon 05-22 Progress Note - Nurse Pre-op call done, instructed to arrive @ 0600 on 06-21-21, NPO after midnight-verbalized understanding. [Electronically Signed on: 06/18/2021 09:26 EDT] Ayah Gracia RN [Verified on: 06/18/2021 09:26 EDT] Ayah Gracia RN [facility] 2019 Novel Coronavirus (CoVI D-19), BART LCon 06-17-2021 SARS-CoV-2 (COVID-19) RNA BART+probe Ql (Unsp spec) Not detected Invalid Interpretation Code Not Detected [facility] Comment on above: Order Comment: [id number] Result Comment: This nucleic acid amplification test was developed and its performance characteristics determined by [employer]. Nucleic acid amplification tests include RT- PCR [...] detected) result in this assay. Performed At: [address] [id number] Suzanne Durham PhD Ph:[phone] Performed By: #### 6 [id number] #### [facility] (DEFAULT) [address] [place] [address] Advance Directive Documentso n 06-07-2021 Advance Directive Documents [id number] #[id number] [facility] Coding Summaryon 06-07-2021 Coding Summary HTMLBase 64 YsdhaqcvSXo6iHq+PGhl YWQ+XP6XLFQoE08xrIMh jG8LQ8hFSD6MZFQMAMPL PY0JOW2anQM3MIspS6Sq biAv KeyguBNcAL27AAt1RCN5 oSjtJFpspN6wuFEnR1e1 AoBxHP49gV23HTmtFZTb OmF0AgFzplrjoHGn B4feQbLzoIUlYzb+PHRh YmxlIHdpZHRoPScxMDAl UpQooXjpCX1rGd1zYAXm LWNvbGxhcHNlOiBj w9jaCSTxMYmrAW0sjHed U7EgtZI5FKMqf7t1Gc51 dHI+WDWaEXE6aZkiWHwh y734BdLse4hxTYP9 mDGkCEnqTDZ7L83ss1Q0 EBOcOKMoRBY6oZE5xB8n dRrrwfraI2OwhFSyOnL1 OCT3xXNreM5shBvy zsnrnV0wOtx+T95IWC9L MRCQJI0WCxx8J0IsFxwk dHI+JM38GDYnIO18rANh hFEio3omkMu5TvGt HQGxLSE9dOamHYyay3Fw RWTlG01opNXoa0Z2MFKk dKsnhQRdBbMlhNX1aP3r AGkxmtnjp3thsbue Zdbln5qpcz30wB13G71l AJnxADMlXQR2PJDbNOOr dBljef6ddR7pMd8+IDxj a7alw8wemNc4PoFo XCGjmtApyCggUSF5y6Cw Su55E0BoaJnjq4GbYsn6 nl04rBVkb3V6xOF6KGjf FINavT1dMVjmSyB5 AWQcGyWqcH10aBZpWSas Cv6mlWmrmTnlJQ8fTOYy wwjsRARfqG5hFSKomYSa jFrvEX6hKLArvhmp i588VlSzKIT0DOBerCVu A7FzmQ3gIdUjFCSbYATk W6QzsWPpPDsnO666AMbr OpI7TRZcrwTjR6Bi OJHboHbkUaF3f5U1Wq8Q y7UgvhgjYSY5IKnbPZP6 LqD8OhCcXbK3G6VbRvp2 XVZtiHhkYA4dK5Px QFIiclzikmclgRI4BCVn DZMmiE31xWSmVUmsOq1j q8K9v980HLDfYSAstO01 Gu1iyLkcZLGheUJG jG6gjtecp5snjyruZuFx CFRlMEh1COw4YZOthLib OeBuZAZ0EmI6RRD7yAUo vK7hvXidckfhzY1a Oyc+O03keO0rYXN6PTC4 tonvOFGdckZsPD77PE07 B0HwNhffmARykBW+PGRp ztLukOhqRH4bFdPa y4knh7LjPFacG8AlGCLf WNjkQfx3NKFlCCY1uUT7 dX5wKXGsRKlrh7W8pOE8 K1HxfrWqrs2bi2na VWSaLUdrK76nxQVsj2Z2 MREwlXY8AIJsvXmfJbAt rJ36Rqu+UTXzzJugc2Dt Jqfpo6ioc8ypwOk4 IjMwJSIgdmFsaWduPSJ0 p4IdTw08X57nJBhvCDWm CPQbDAKcSUHloEmazr5y yO2aXy3+PGNvbCB3 zKK4xM7lNPJiAgB4RRpm S378BnGtdIRnObhxn0dw r0oqjFx2JjYtUQCozmVg fLcfFCW5r2FbXs17 Z85wRXyjKPFsFKQhWROp RPSdjBqssq4fiG2vIp5+ HG1ok2aauf38vJ36cMO+ VUFuTWQ8nMmxLDqo NQSasO3pJVwuKuI1IBIw WpGhzB70yMZoTGtuMv3j fGvhyOgmGD4lDZIzucje z357GrCiw2azRLRj gYFjJJygVZY9Q84at0X2 DKKlCFPxYVM0oZG1dY7j bGlnbjogbGVmdDsgdmVy lVrxJZltFXwmE362 IHRvcDsnPlBhdGllbnQg SbVdGKx1S6SlWsh8PXCt kHfuXG5fcMFwNDnsIx6j oJyinHdpLZ8oYZFh qeium380LbDog8mfKVQg yMJrCEiuVOL4B02tc7B9 MRUtOJTvHFP4yTS2kA7w bGlnbjogbGVmdDsg qmYmhArtPVkuUQdiT539 IHRvcDsnPkJpcnRoIERh aSI4VH72YR73lSXdf1O0 dWH2S5MsJKJhijke hztbjYF2DCQrVYRcgZ62 Cx1etHsvRl0vJXWtWVW2 EVNmpGPwM6PxxW8dGuDh ZGGnSYMeT8NooWAj FGjlA137YAdcTfJ3QNWm ilMzL5FiYZXqlEnkUxP0 u4D9Dy8FL8K9VV50VQ97 jGLal9S3cBV6K7Ub ZRZjawconnmotFO9TVXy XYAhjW30Cy9amNvlEi1u NGYuHQU8BLIgsUAwO8Bg jQ6yUzUgGOQdUDCa D1EymPJdABlpU389QKem PzB0DPRbdrTpP7XxKGCb iFqvAyN5g1U7Bh1XOPh5 VK58JR92iXEqv5U4 wCH8Y2ZwMIMvfthdvivv xWN5JNFmBDCqdM39Ou3p dCciFg5xNIJyQDC3NPCb mHBbQ6OeqX0sHpXa IDMwGMChD0JzwHNgJZay Z371UIglOwP1DFNowrPs Z0OcSJDbtBmhJsB9l0Z9 Dn9CHUXjEM18UYS5 nCJ4YE04XM68W1GkLpwc dGFibGU+PHRhYmxlIHdp ZHRoPScxMDAlJyBzdHls EX6oHo7vSDXhPXLg lJpbdTQcUkAzq4faKRHk DXiuGI6brCknF3ZnpSS3 SFQuk9m6Tc91O60xR3Nh dXA+SJEetSS3sWA4 vB7aCzKjBnY5QYaoF592 HcRdnSIhDgklb6oob1gf dUu8BhE7XSNwltExkXcb YSL2s0NbVd09F13z IHdpZHRoPSIxNSUiIHZh nVhlmn3ndI7cBz4+PGNv qQD8tFR6gN0xXyXbNzE2 VIcfU306YuHtiGKp Wlqsr5kef9rkmHm8TnVd NYXfjbGygCxqEJL1g5Od Tt44Z4WgsPcba5GbDwn0 jz57zHClf2H6jCG5 R5PfYLEkubgbjXBsgVem VC2bYYNmxgurSCRmuJ1i ZMUaE6l8TxWzVqB5XNzc T3BuxcD6XZDupPFs VHpoWVN6H86wy4Y1HGQw JAEmTFJ4rXG6hE4rbGfa bjogbGVmdDsgdmVydGlj PZscPMpdK687RFXq sShsDMVtkW8jBYSbtKMu pXdrMP1lFMVmremjUnJA IrSaPSnONTFQSXQ6P5Ne Rnd5LJOesWgeWJ9d xHMcAHmvRe9vtRrzxIrt VV1jONWwbnlgLCFiwS4q LWIqnZCxuTouIL0zRGFp xpfha786ByFvSJG4 ZNKjtGOdQ6OjbF7jMhGg HEDhJGByW3BxbETrFHle J984PLnkYaB1JQCjrtOc C6SbOXRsrRriCxV7 d8L5Pl0kKl0bBE6sPCM8 XL28ZU09eBBth1T6oOP0 F7VcHQOmxapkaenqdIJ1 AXTwNWFvhH95qZEt XDujId8hu7H1n453JLLc SBLpxY62Te2hdWhhENMc pMVNrH8aintbw8wfqcqd HnOyNPCiDYs7WRq8 OKNxwIzsWzHbTDK0RlM7 UJC7bVYddZ5vhXzqiaeb dY8aSti+ODQgWWVhcnM8 O2YzKfj1FAWroVmf LU9poVRiBKfeAc6suIxw yEjxAG6iZQHdkmjgFCBi lT3iLKKxyEYlzUycMU5v LQTtqlldp612KpYn VGD3RBHwsGSkC3WitG2c YuKtYSQfDODuE7VfqHZc VBawU377HGcgDlZ2QIGs ubItI1SuXQRbfPtr BtK8p7Q1Ul1KTGqSSO59 DK77jFLrz9D8qTH5O9Da OFBrgbkppjxbeHC8TRBe DKSpaM74nDGyCSnz Fz7it0A8l797AGUsHQWm rB90Eo3reYtpKABmgZTN sQ4ihwzsv7gkktsuQkKn CJDjLBg6GQd4SWVv qUmzNcIfRKE7IbB5OZU8 bVSweB2spDifrqxvdY2a Oyc+T7U7K6NnGyfcaUG+ IK77QADoYO90yOUc hQKvd4uisZf8OeJoTZAp XDS4eOkyFKtok8TqAGFi I95vkVXys1J0RUZmpUvc tXKkWxGgzUF1xW0h VCtyrnbfm4afeehqOepk e8shuk27dV11S99sQYpf ZHRoPSIzMCUiIHZhbGln sq3acM4nZy0+PGNv xEX6aKC6bI9qZlBjVxY8 JFbfC977UcVveZOqHeoa a4hrc0crqXv4DtScYNAy bdAppQxsPJB0v6Js Sr15X62nSOvsCAPwGMVv MBHqUKZoeEdsmi5ryL1k Ii8+KS4hd0eidt81dX43 dHI+EHXpFDR2rJys OKyzNQTyeW1oHSgrXkW8 QHFlYyQryZ69gUZoFUey Fj2siGofmMuhVZ5yTICe nmzgc467FwNxj7ag JCCjaMPxFVlcZYJ6K31i l0Q1BSMeOPViEEY7iUD0 lG6kfIpypxvrhUNlkAvz dmVydGljYWwtYWxp F548AAPmaMqrNjGnlRVh O0jqzkGWNM9zIftehYN+ TVIpGMB4rGauMVjqZXNj cB7nEXOiE9k6SmPq ScN9OPkuK6OoqcG5MGUw fWZbSCRcyQHVoQ6ltoub u6nqimyyUuSvXQYoWCr2 CLa2YPYiiLohMjGy HKD9RmO7XFW2tIAyjG4p eVkorabnrB1sTtk+RklO OjwvdGQ+GBGcQGD8rVhg WNiqXODeoY5eOOCm G8o4IoIsSmJ8DFagC4No yhM7TJTxlXQpLHXqqKNY sK9zxzhzv8jwzqhgHcGd TTOlEEe3OFg6XLNv nUitSnWeBEC4KaC1RKO9 tXAmyE1kvSqcflhetZ7l Oyc+TVJOOjwvdGQ+PHRk SMS5lWllXWexBSRr bO7xGRFuR2g4YrWvCvR6 VAynV4SgdfO5FSAjzPKj HWCmiORYhT7nkmsdf6rb cjogIzAwMDAwMDt0 TGv6RIHyvKcuEtUuAJI3 BiI6EJJ2pITobC8biEku hhnfyJ6kVtr+JWA7DUT7 TX55VG71V2TkFlpm dGFibGU+PHRhYmxlIHdp ZHRoPScxMDAlJyBzdHls GD0tPy6lDMBaKWBxwLdh mKHzYsLph4ypSHPk ZTs (more content not included)... [facility] Progress Note - Nurseon 05-21 Progress Note - Nurse Chart reviewed by Dr. Garcia and no new orders received. [Electronically Signed on: 06/07/2021 15:13 EDT] Isabela Soliman RN [Verified on: 06/07/2021 15:13 EDT] Isabela Soliman RN [facility] Provider Orderson 06-07-2021 Provider Orders [id number] #[id number] [facility] C MRSA Screenon 06-05-2021 C MRSA Screen Negative [facility] Comment on above: Performed By: #### 1 [id number] ####[facility] (DEFAULT)[address] [place] [address] .Auto Diff 1on 06-04-[address] [place] [place] % 13 % High 03-03 [facility] Comment on above: Performed By: #### 1 [id number] ####[facility] (DEFAULT)[address] [place] [address] 43799 Baso Abs# 0.0 x10 Normal 0.0-0.2 [facility] Comment on above: Performed By: #### 1 [id number] ####[facility] (DEFAULT)[address] [place] [address] 69289 Basophils/100 WBC (Bld) 0.8 % Normal 0.2-2.0 [facility] Comment on above: Performed By: #### 1 [id number] ####[facility] (DEFAULT)[address] [place] [address] 67085 Eos Abs# 0.1 x10 Normal 0.0-0.4 [facility] Comment on above: Performed By: #### 1 [id number] ####[facility] (DEFAULT)[address] [place] [address]28 Eosinophils/100 WBC (Bld) 2.3 % Normal 0.9-4.0 [facility] Comment on above: Performed By: #### 1 [id number] ####[facility] (DEFAULT)[address] [place] [address] 86447 Lymph Abs# 1.4 x10 Normal 1.3-2.9 [facility] Comment on above: Performed By: #### 1 [id number] ####[facility] (DEFAULT)[address] [place] [address] 40478 Lymphocytes/100 WBC (Bld) 28 % Normal 14-48 [facility] Comment on above: Performed By: #### 1 [id number], [id number] ####[facility] (DEFAULT)[address] [place] [address] [address] [place] Abs# 0.6 x10 Normal 0.0-0.8 [facility] Comment on above: Performed By: #### 1 [id number], [id number], [id number] ####[facility] (DEFAULT)[address] [place] [address] 76808 Neut Abs# 2.7 x10 Normal 1.5-9.2 [facility] Comment on above: Performed By: #### 1 [id number], [id number] ####[facility] (DEFAULT)[address] [place] [address] Neutrophils/100 WBC (Bld) 55 % Normal 44-88 [facility] Comment on above: Performed By: #### 1 [id number], [id number], [id number] ####[facility] (DEFAULT)[address] [place] [address] BMP Standardon 06-04-2021 eGFR Non AA 58 mL/min/1.73m2 Invalid Interpretation Code [facility] Comment on above: Performed By: #### 1 [id number], [id number], [id number] ####[facility] (DEFAULT)[address] [place] [address] eGFR AA >60 Invalid Interpretation Code [facility] Comment on above: Result Comment: Waste Duster martha Kidney disease could be indicated at eGFRs of less than 60 ml/min/1.73m2. Kidney Failure is indicated at less than 15 ml/min/1.73m2 Performed By: #### 1 [id number], [id number], [id number] ####[facility] (DEFAULT)[address] [place] [address] 01801 Anion gap [Moles/Vol] 18.0 mmol/L Normal 5.0-19.0 [facility] Comment on above: Performed By: #### 1 [id number], [id number], [id number] ####[facility] (DEFAULT)[address] [place] [address] 07387 Calcium [Mass/Vol] 9.8 mg/dL Normal 8.9-10.3 [facility] Comment on above: Performed By: #### 1 [id number], [id number], [id number] ####[facility] (DEFAULT)[address] [place] [address] 32954 Chloride [Moles/Vol] 96 mmol/L Low 101-111 [facility] Comment on above: Performed By: #### 1 [id number], [id number], [id number] ####[facility] (DEFAULT)[address] [place] [address] 14036 CO2 [Moles/Vol] 27 mmol/L Normal 21-32 [facility] [facility] Comment on above: Performed By: #### 1 [id number], [id number], [id number] ####[facility] (DEFAULT)[address] [place] [address] 86677 Creatinine [Mass/Vol] 1.19 mg/dL Normal 0.90-1.30 [facility] Comment on above: Performed By: #### 1 [id number], [id number], [id number] ####[facility] (DEFAULT)[address] [place] [address] 46196 Glucose [Mass/Vol] 93.0 mg/dL Normal 74.0-118.0 [facility] Comment on above: Performed By: #### 1 [id number], [id number], [id number] ####[facility] (DEFAULT)[address] [place] [address] 88088 Osmolality 277 mOsm/L Invalid Interpretation Code [facility] Comment on above: Performed By: #### 1 [id number], [id number], [id number] ####[facility] (DEFAULT)[address] [place] [address] 21520 Potassium [Moles/Vol] 4.5 mmol/L Normal 3.6-5.1 [facility] Comment on above: Performed By: #### 1 [id number], [id number], [id number] ####[facility] (DEFAULT)[address] [place] [address] 05657 Sodium [Moles/Vol] 136.0 mmol/L Normal 136.0-144.0 [facility] Comment on above: Performed By: #### 1 [id number], [id number], [id number] ####[facility] (DEFAULT)[address] [place] [address] 92781 Urea nitrogen [Mass/Vol] 27 mg/dL High 8-26 [facility] Comment on above: Performed By: #### 1 [id number], [id number], [id number] ####[facility] (DEFAULT)[address] [place] [address] Urea nitrogen/Creatinine [Mass ratio] 23.0 mg/mg High 4.6-16.2 [facility] Comment on above: Performed By: #### 1 [id number], [id number], [id number] ####[facility] (DEFAULT)[address] [place] [address] CBC w/ Auto Diffon Erythrocyte distribution width (RBC) [Ratio] 12.4 % Normal 11.5-15.0 [facility] Comment on above: Performed By: #### 1 [id number], [id number], [id number] #### [facility] (DEFAULT) [address] [place] [address] Hematocrit (Bld) [Volume fraction] 45.9 % Normal 34.8-51.9 [facility] Comment on above: Performed By: #### 1 [id number], [id number], [id number] #### [facility] (DEFAULT) [address] [place] [address] Hemoglobin (Bld) [Mass/Vol] 14.8 g/dL Normal 11.8-17.7 [facility] Comment on above: Performed By: #### 1 [id number], [id number], [id number] #### [facility] (DEFAULT) [address] [place] [address] Instr WBC 4.8 x10 Invalid Interpretation Code [facility] Comment on above: Performed By: #### 1 [id number], [id number], [id number] #### [facility] (DEFAULT) [address] [place] [address] Man Diff? Auto Normal [facility] Comment on above: Performed By: #### 1 [id number], [id number], [id number] #### [facility] (DEFAULT) [address] [place] [address] MCH (RBC) [Entitic mass] 32 pg Normal 24-34 [facility] Comment on above: Performed By: #### 1 [id number], [id number], [id number] #### [facility] (DEFAULT) [address] [place] [address] MCHC (RBC) [Mass/Vol] 32 g/dL Normal 26-37 [facility] Comment on above: Performed By: #### 1 [id number], [id number], [id number] #### [facility] (DEFAULT) [address] [place] [address] 20025 MCV (RBC) [Entitic vol] 98 fL Normal 81-100 [facility] Comment on above: Performed By: #### 1 [id number], [id number], [id number] #### [facility] (DEFAULT) [address] [place] [address] 36786 Platelet 221 x10 Normal 138-427 [facility] Comment on above: Performed By: #### 1 [id number], [id number], [id number] #### [facility] (DEFAULT) [address] [place] [address] 53629 Platelet mean volume (Bld) [Entitic vol] 8.6 fL Normal 6.3-10.2 [facility] Comment on above: Performed By: #### 1 [id number], [id number], [id number] #### [facility] (DEFAULT) [address] [place] [address] 86688 RBC 4.68 x10 Normal 3.70-5.30 [facility] Comment on above: Performed By: #### 1 [id number], [id number], [id number] #### [facility] (DEFAULT) [address] [place] [address] 60088 WBC 4.8 x10 Normal 3.5-10.5 [facility] Comment on above: Performed By: #### 1 [id number], [id number], [id number] #### [facility] (DEFAULT) [address] [place] [address] 59123 UA w Culture if Ind Standard on 06-04-2021 Breakpoint UA Normal [facility] Comment on above: Performed By: #### 1 [id number] ####[facility] (DEFAULT)[address] [place] [address] 40594 Color (U) Yellow Normal [facility] Comment on above: Performed By: #### 1 [id number] ####[facility] (DEFAULT)[address] [place] [address] 28495 Culture? No Normal [facility] Comment on above: Performed By: #### 1 [id number] ####[facility] (DEFAULT)[address] [place] [address] 33407 Glucose (U) [Mass/Vol] Negative Normal [facility] Comment on above: Performed By: #### 1 [id number] ####[facility] (DEFAULT)[address] [place] [address] 83275 Ketones Ql (U) Negative [facility] Comment on above: Performed By: #### 1 [id number] ####[facility] (DEFAULT)[address] [place] [address] 96169 Micro? Not Indicated [facility] Comment on above: Performed By: #### 1 [id number] ####[facility] (DEFAULT)[address] [place] [address] 70303 UA Bilirubin Negative Normal [facility] Comment on above: Performed By: #### 1 [id number] ####[facility] (DEFAULT)[address] [place] [address] 33792 UA Blood Negative Normal NEGATIVE [facility] Comment on above: Performed By: #### 1 [id number] ####[facility] (DEFAULT)[address] [place] [address] 48083 UA Clarity CLEAR Normal CLEAR [facility] Comment on above: Performed By: #### 1 [id number] ####[facility] (DEFAULT)[address] [place] [address] 24853 UA Leuk Est Negative Normal NEGATIVE [facility] Comment on above: Performed By: #### 1 [id number] ####[facility] (DEFAULT)[address] [place] [address] 13200 UA Nitrite Negative Normal NEGATIVE [facility] Comment on above: Performed By: #### 1 [id number] ####[facility] (DEFAULT)[address] [place] [address] 68877 UA pH 6.0 Normal 5-8 [facility] Comment on above: Performed By: #### 1 [id number] ####[facility] (DEFAULT)[address] [place] [address] UA Protein Negative Normal NEGATIVE [facility] Comment on above: Performed By: #### 1 [id number] ####[facility] (DEFAULT)[address] [place] [address] UA Spec Grav 1.020 Normal 1.001-1.035 [facility] Comment on above: Performed By: #### 1 [id number] ####[facility] (DEFAULT)[address] [place] [address] UA Urobilinogen 0.2 mg/dL Normal 0.2-1.0 [facility] Comment on above: Performed By: #### 1 [id number] ####[facility] (DEFAULT)[address] [place] [address] Urine Source Clean Catch Normal [facility] Comment on above: Performed By: #### 1 [id number] ####[facility] (DEFAULT)[address] [place] [address] Vital Signs Date Time Vital Sign Value Performing Clinician Danei susannay 11-19-2024 09:30-0400 Body height 175.3 cm Jermain Menchaca MD Work Phone: [facility] 11-19-2024 09:30-0400 Body mass index (BMI) [Ratio] 24.81 kg/m2 Jermain Menchaca MD Work Phone: [facility] 11-19-2024 09:30-0400 Body weight 76.2 kg Jermain Menchaca MD Work Phone: [facility] 11-19-2024 09:30-0400 Diastolic blood pressure 84 mm[Hg] Jermain Menchaca MD Work Phone: [facility] 11-19-2024 09:30-0400 Heart rate 68 /min Jermain Menhcaca MD Work Phone: [facility] 11-19-2024 09:30-0400 SaO2% (BldA) [Mass fraction] 98 % Jermain Menchaca MD Work Phone: [facility] 11-19-2024 09:30-0400 Systolic blood pressure 134 mm[Hg] Jermain Menchaca MD Work Phone: [facility] 10-28-2024 09:29-0400 Body height 175.3 cm Jermain Menchaca MD Work Phone: [facility] 10-28-2024 09:29-0400 Body mass index (BMI) [Ratio] 24.81 kg/m2 Jermain Menchaca MD Work Phone: [facility] 10-28-2024 09:29-0400 Body weight 76.2 kg Jermain Menchaca MD Work Phone: [facility] 10-28-2024 09:29-0400 Diastolic blood pressure 82 mm[Hg] Jermain Menchaca MD Work Phone: [facility] 10-28-2024 09:29-0400 Heart rate 79 /min Jermain Menchaca MD Work Phone: [facility] 10-28-2024 09:29-0400 SaO2% (BldA) [Mass fraction] 95 % Jermain Menchaca MD Work Phone: [facility] 10-28-2024 09:29-0400 Systolic blood pressure 132 mm[Hg] Jermain Menchaca MD Work Phone: [facility] 01-09-2024 08:28-0500 Body height 175.3 cm Chata Hemmer PA Work Phone: [facility] 01-09-2024 08:28-0500 Body mass index (BMI) [Ratio] 24.04 kg/m2 Chata Hemmer PA Work Phone: [facility] 01-09-2024 08:28-0500 Body weight 73.85 kg Chata Hemmer PA Work Phone: [facility] 01-09-2024 08:28-0500 Diastolic blood pressure 72 mm[Hg] Chata Hemmer PA Work Phone: [facility] 01-09-2024 08:28-0500 Heart rate 104 /min Chata Hemmer PA Work Phone: [facility] 01-09-2024 08:28-0500 Respiratory rate 16 /min Chata Hemmer PA Work Phone: [facility] 01-09-2024 08:28-0500 SaO2% (BldA) [Mass fraction] 92 % Chata Hemmer PA Work Phone: [facility] 01-09-2024 08:28-0500 Systolic blood pressure 100 mm[Hg] Chata Hemmer PA Work Phone: [facility] 12-26-2023 08:30-0500 Body height 175.3 cm Chata Hemmer PA Work Phone: [facility] 12-26-2023 08:30-0500 Body mass index (BMI) [Ratio] 24.54 kg/m2 Chata Hemmer PA Work Phone: [facility] 12-26-2023 08:30-0500 Body weight 75.39 kg Chata Hemmer PA Work Phone: [facility] 12-26-2023 08:30-0500 Diastolic blood pressure 68 mm[Hg] Chata Hemmer PA Work Phone: [facility] 12-26-2023 08:30-0500 Heart rate 68 /min Chata Hemmer PA Work Phone: [facility] 12-26-2023 08:30-0500 Respiratory rate 16 /min Chata Hemmer PA Work Phone: [facility] 12-26-2023 08:30-0500 SaO2% (BldA) [Mass fraction] 91 % Chata Hemmer PA Work Phone: [facility] 12-26-2023 08:30-0500 Systolic blood pressure 122 mm[Hg] Chata Hemmer PA Work Phone: [facility] 10-30-2023 13:50-0400 Body height 175.3 cm Jermain Menchaca MD Work Phone: [facility] 10-30-2023 13:50-0400 Body mass index (BMI) [Ratio] 24.96 kg/m2 Jermain Menchaca MD Work Phone: [facility] 10-30-2023 13:50-0400 Body weight 76.66 kg Jermain Menchaca MD Work Phone: [facility] 10-30-2023 13:50-0400 Diastolic blood pressure 82 mm[Hg] Jermain Menchaca MD Work Phone: [facility] 10-30-2023 13:50-0400 Heart rate 74 /min Jermain Menchaca MD Work Phone: [facility] 10-30-2023 13:50-0400 SaO2% (BldA) [Mass fraction] 97 % Jermain Menchaca MD Work Phone: [facility] 10-30-2023 13:50-0400 Systolic blood pressure 138 mm[Hg] Jermain Menchaca MD Work Phone: [facility] Healthcare Encounters Encounter Date Encounter Type Care Provider Facility Start: 11-25-2024 End: 11-25-2024 ambulatory Alberto Pacheco MD Facility:[facility] Start: 11-19-2024 End: 11-19-2024 Office outpatient visit 25 minutes Jermain Menchaca MD Work Phone: [facility] Comment on above: Acute hip pain, left (Primary Dx); Piriformis syndrome of left side Start: 11-19-2024 End: 11-19-2024 ambulatory JERMAIN MENCHACA Not Available Start: 11-06-2024 End: 11-06-2024 Emergency department patient visit KIERAN GAINES [facility] Start: 10-28-2024 End: 10-28-2024 Bamboo flowsheet [facility] Start: 10-28-2024 End: 10-28-2024 Bamboo flowsheet [facility] Start: 10-28-2024 End: 10-28-2024 Assay of hemosiderin, quant Jermain Menchaca MD Work Phone: [facility] Start: 10-28-2024 End: 10-28-2024 Patient encounter procedure Jermain Menchaca MD Work Phone: [facility] Comment on above: Routine general medi toni examination at health care facility (Primary Dx); Benign essential hypertension ; Pure hypercholesterolemia ; Medicare annual wellness visit, subsequent; Retention of urine, unspecified Start: 10-28-2024 End: 10-28-2024 ambulatory JERMAIN Wan NIKOLAI Not Available Start: 04-29-2024 End: 04-29-2024 ambulatory JERMAIN MENCHACA Not Available Start: 01-22-2024 End: 01-22-2024 ambulatory Alberto Pacheco MD Facility:[facility] Start: 01-16-2024 End: 01-16-2024 ambulatory LITA SILVESTRE Not Available Start: 01-16-2024 End: 01-16-2024 Bamboo flowsheet Lita Silvestre [employer] Work Phone: [facility] Start: 01-16-2024 End: 01-16-2024 Bamboo flowsheet Lita Silvestre [employer]TAIN Work Phone: [facility] Start: 01-16-2024 [...] 01-01-2024 End: 01-01-2024 ambulatory Alberto Pacheco MD Facility:[facility] Start: 12-26-2023 End: 12-26-2023 Bamboo flowsheet Chata [...] vaccination Start: 12-26-2023 End: 12-26-2023 ambulatory CHATA RDORIGUES Not Available Start: 12-25-2023 End: 12-26-2023 Telephone encounter Enrique Rutherford DO Work Phone: [facility] Comment on above: question Start: 12-25-2023 End: 12-25-2023 ambulatory Alberto Pacheco MD Facility:[facility] Start: 12-19-2023 End: 12-19-2023 Bamboo flowsheet Lita Silvestre [employer] Work Phone: [facility] Start: 12-19-2023 End: 12-19-2023 Bamboo flowsheet Lita Silvestre [employer] Work Phone: [facility] Start: 12-19-2023 [...] 11-23-2023 End: 11-23-2023 Bamboo flowsheet Lita Silvestre [employer]TAIN Work Phone: [facility] Start: 11-23-2023 End: 11-23-2023 Bamboo flowsheet Lita Silvestre NP Work Phone: [facility] Start: 11-23-2023 End: 11-23-2023 Office outpatient visit 10 minutes Lita Silvestre NP Work Phone: [facility] Comment on above: Closed fracture of m ultiple pubic rami, right, with routine healing, subsequent encounter; Closed nondisplaced fracture of medial wall of left acetabulum with routine healing, subsequent encounter Start: 11-09-2023 End: 11-09-2023 Bamboo flowstita Silvestre NP Work Phone: [facility] Start: 11-09-2023 End: 11-09-2023 Bamboo flowsheet Lita Silvestre NP Work Phone: [facility] Start: 11-09-2023 End: 11-09-2023 Office outpatient visit 15 minutes Lita Silvestre NP Work Phone: [facility] Comment on above: Closed fracture of m ultiple pubic rami, right, initial encounter (CMS/HCC) (Primary Dx); Nondisplaced fracture of medial wall of left acetabulum, initial encounter for closed fracture (CMS/HCC) Start: 10-30-2023 End: 10-30-2023 Assay of hemosiderin, quant Jermain Menchaca MD Work Phone: [facility] Healthcare Work Phone: Start: 10-30-2023 End: 10-30-2023 Bamboo flowsheet Jermain Menchaca MD Work Phone: [facility] Start: 10-30-2023 End: 10-30-2023 Bamboo flowsheet Jermain Menchaca MD Work Phone: [facility] Start: 10-30-2023 End: 10-30-2023 Patient encounter procedure Jermain Menchaca MD Work Phone: [facility] Comment on above: Routine general medi toni examination at [facility] facility (Primary Dx); 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); 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); Benign essential hypertension (CMS/HCC); Pure hypercholesterolemia ([facility]/HCC) Start: 06-05-2023 End: 06-06-2023 Telephone encounter Sunitha Giron RN [facility] Start: 10-11-2022 End: 01-09-2024 Assay of hemosiderin, quant Jermain Menchaca MD Work Phone: [facility] Start: 12-17-2021 End: 12-17-[address] JERMAIN MENCHACA Facility: Procedures Date Procedure Procedure Detail Performing Clinician Start: 01-16-2024 Radiologic examinati on pelvis 1/2 views Lita Silvestre NP Work Phone: Start: 12-19-2023 Radiologic examinati on pelvis 1/2 views Lita Silvestre [employer] Work Phone: Start: 11-23-2023 Radiologic examinati on pelvis 1/2 views Lita Silvestre [employer] Work Phone: Plan of Treatment Date Care Activity Detail Author Start: 10-28-2025 Medicare Annual Wellness (AWV) Medicare Annual Wellness (AWV) [facility] Start: 04-28-2025 End: 04-28-2025 Patient encounter procedure 04/28/2025 8:30 AM EDT [facility] [address] [facility] [address] [place] [address] Jermain Menchaca MD [address] [place] [address] [place] [address] [facility] Start: 10-29-2024 Medicare Annual Wellness (AWV) Medicare [...] 10/28/2025 [facility] Healthcare Work Phone: Comment on above: Expected: 10/28/2024 (Approximate), Expi res: 10/28/2025 Start: 10-28-2024 End: 10-28-2024 Patient encounter procedure 10/28/2024 9:30 AM EDT Office Visit [facility] [place] [address] [place] [address] [place] [phone] Jermain Menchaca MD [address] [place] [address] [place] [address] Arrived [facility] [place] [facility] Comment on above: Arrived Start: 10-21-2024 Influenza vaccination Influenza Vaccine (#1) [facility] Start: 06-01-2024 Adult BMI Screening Adult BMI Screening [facility] Start: 05-31-2024 Tobacco Screening Tobacco Screening [facility] Start: 04-29-2024 End: 04-29-2024 Patient encounter procedure 04/29/2024 9:45 AM EDT Office Visit [facility] [address] [place] [address] [place] [phone] Jermain Menchaca MD [address] [place] [address] [place] [address] [facility] Start: 01-16-2024 End: 01-16-2024 Patient encounter procedure 01/16/2024 10:15 AM EST Office Visit [facility] [address] [place] [address] [place] [address] Lita Silvestre, [employer] [address] [place] [address] [facility] Start: 01-09-2024 End: 01-09-2024 Patient encounter procedure [facility] Comment on above: Arrived Start: 12-26-2023 End: 12-26-2023 Patient encounter procedure 12/26/2023 8:30 AM EST Office Visit [facility] [address] [facility] [address] [place] [address] Chata Rodrigues PA [address] [facility] [address] [place] [address] Arrived [facility] Comment on above: [...] Visit [facility] [address] [place] [address] Lita Silvestre, [employer] [address] [place] [address] [facility] Start: 11-23-2023 End: 11-23-2023 Patient encounter procedure 11/23/2023 2:00 PM EDT Office Visit [facility] [address] [place] [phone] Lita Slivestre, [employer] [address], [place] [phone] Arrived [facility] Comment on above: Arrived Start: 11-09-2023 End: 11-09-2023 Patient encounter procedure 11/09/2023 1:45 PM EDT Office Visit [facility] [address] [place] [phone] Lita Silvestre, [employer] [address], [place] [phone] Arrived [facility] Comment on above: Arrived Start: 10-30-2023 End: 10-30-2023 Patient encounter procedure 10/30/2023 2:00 PM EDT Office Visit [facility] [address] [facility] [address] [place] [phone] Jermain Menchaca MD [address] [facility] [address] [place] [address] Arrived [facility] Comment on above: Arrived Start: 10-22-2023 Influenza vaccination [facility] Start: 10-12-2023 Medicare Annual Wellness (AWV) Medicare Annual Wellness (AWV) [facility] Start: 2001 Fall Risk Screening Fall Risk Screening [facility] Start: 1986 Administration of varicella zoster vaccine Zoster (Shingles) Vaccine (1 of 2) [facility] Start: 08-25-1955 DTaP,Tdap and Td Vaccines (1 - Tdap) DTaP,Tdap and Td Vaccines (1 - Tdap) [facility] Start: 1948 Depression Screening Depression Screening [facility] Start: 1936 Medicare Annual Wellness Visit Medicare Annual Wellness Visit [facility] Immunizations Immunization Date Immunization Notes Care Provider Fa cili 12-26-2023 Influenza, High-dose Seasonal, Quadrivalent, Preservative Free Chata COLIN Work Phone: [facility] 12-26-2023 influenza virus vacc ine, unspecified formulation Jermain Menchaca MD Work Phone: [facility] 12-22-2022 influenza, high dose seasonal, preservative-free Jermain Menchaca MD Work Phone: [facility] 12-22-2022 influenza virus vacc ine, unspecified formulation Sunitha Giron RN [facility] 12-18-2021 Influenza, High-dose Seasonal, Quadrivalent, Preservative Free Jermain Menchaca MD Work Phone: [facility] 12-18-2021 Moderna Bivalent Silver ster Vaccination Jermain Menchaca MD Work Phone: [facility] 12-01-2020 Influenza, High-dose Seasonal, Quadrivalent, Preservative Free Jermain Menchaca MD Work Phone: [facility] 12-16-2019 influenza, injectabl e, quadrivalent, preservative free Jermain Menchaca MD Work Phone: [facility] 12-10-2018 influenza, injectabl e, quadrivalent, preservative free Jermain Menchaca MD Work Phone: [facility] 12-20-2017 influenza, high dose seasonal, preservative-free Jermain Menchaca MD Work Phone: [facility] 12-11-2017 influenza, injectabl e, quadrivalent, preservative free Jermain Menchaca MD Work Phone: [facility] 11-01-2016 influenza, high dose seasonal, preservative-free Jermain Menchaca MD Work Phone: [facility] 11-01-2016 pneumococcal conjuga te vaccine, 13 valent Jermain Menchaca MD Work Phone: [facility] 11-21-2015 pneumococcal polysaccharide vaccine, 23 valent Jermain Menchaca MD Work Phone: [facility] 11-19-2015 influenza, injectabl e, madin abhijit canine kidney, preservative free Jermain Menchaca MD Work Phone: [facility] 10-29-2015 influenza virus vacc ine, unspecified formulation Jermain Menchaca MD Work Phone: [facility] 10-29-2015 influenza, seasonal, injectable, preservative free Jermain Menchaca MD Work Phone: [facility] 01-03-2015 influenza, high dose seasonal, preservative-free Jermain Menchaca MD Work Phone: [facility] 04-14-2014 pneumococcal vaccine , unspecified formulation Jermain Menchaca MD Work Phone: [facility] 11-14-2012 influenza virus vacc ine, whole virus Jermain Menchaca MD Work Phone: [facility] 11-22-2011 influenza virus vacc sandra, whole virus Jermain Menchaca MD Work Phone: [facility] 11-17-2010 influenza virus vacc sandra, whole virus Jermain Menchaca MD Work Phone: [facility] 12-02-2009 influenza virus vacc ine, whole virus Jermain Menchaca MD Work Phone: [facility] 11-26-2008 influenza virus vacc ine, whole virus Jermain Menchaca MD Work Phone: [facility] 12-06-2006 influenza virus vacc ine, whole virus Jermain Menchaca MD Work Phone: [facility] Payers Date Payer Category Payer Unknown [id number] 2014 Private Health Insurance [id number] 2001 Medicare [id number] 1959 Medicare [id number] 1959 Unknown [id number] 1936 Unknown [id number] 2.16.84 [id number] 1936 Unknown [id number] 2.16. 840.1.604554.3.579.2.1286 1936 Unknown [id number] 2.16.8 40.1.166215.3.579.2.1259 1936 Unknown [id number] 2.16.8 40.1.114857.3.579.2.1259 1936 Unknown [id number] 2.16.84 0.1.592368.3.579.2.1258 1936 Unknown [id number] 2.16.84 0.1.268699.3.579.2.1258 1936 Unknown [id number] 2.16.84 0.1.327323.3.579.2.1258 1936 Unknown [id number] 2.16.84 0.1.750760.3.579.2.1258 1936 Unknown [id number] 2.16.84 0.1.061128.3.579.2.1258 1936 Unknown [id number] 2.16.84 0.1.956335.3.579.2.1258 1936 Unknown [id number] 2.16.84 0.1.757418.3.579.2.1258 1936 Unknown [id number] 2.16. 840.1.013927.3.579.2.196 1936 Unknown [id number] 2.16 840.1.282557.3.579.2.196 1936 Unknown [id number] 2.16. [id number] 1936 Unknown [id number] 2.16 [id number] Social History Date Type Detail Facility Start: 12-01-2021 End: 08-21-2023 Tobacco smoking status [facility] Ex-smoker [facility] Healthcare Work Phone: End: 02-20-1969 History of tobacco use Current smoker [facility] End: 02-20-1969 History of tobacco use Cigarette Smoker [facility] Start: 12-01-2021 End: 08-21-2023 Tobacco use and exposure Smokeless tobacco non-user [facility] Start: 10-30-2023 End: 11-19-2024 Alcoholic beverage intake Current drinker of alcohol (finding) [facility] Start: 10-30-2023 End: 11-19-2024 History of Social function [facility] Start: 10-30-2023 End: 11-19-2024 Tobacco use panel [facility] Start: 12-01-2022 Alcohol Comment 1-2 drinks monthly or less [facility] Start: 1935 Sex assigned at Not on file [facility] Has the [employer], [employer], or water [employer] threatened to shut off services in your home in past 12Mo No [facility] In the past 12 month s, has lack of transportation kept you from medical appointments or from getting medications? No [facility] Start: 12-01-2021 Tobacco Comment Quit smoking over 40 years ago [facility] Start: 08-03-2018 Alcohol Comment rare [facility] Goals Date Patient Goal Desired Activity /State Personal health goal Comment on above: Formatting of this n ote might be different from the original. Evaluation of progress towards goal: Safe dc transition from hospital to home with family support. Functional Status Date Assessment Result Facility 11-19-2024 Patient Health Quest ionnaire 2 item (PHQ-2) [Reported] [facility] 10-28-2024 Patient Health Quest ionnaire 2 item (PHQ-2) [Reported] [facility] Clinical Notes 06-21-2021 to 11-19-2024 Jermain Menchaca [...] Flowsheet Row Patient Out[facility] [place]/08/[facility] in [facility] [place] Shannan Veliz RN Hospital Information ED, Hospital or Retirement Facility Discharge? ED Patient has been contacted within 2 days of being seen in the ED Yes Diagnosis Strain of left hip Discharge Date 11/06/24 Discharged To: Home Setting Discharge Hospital [facility] Engagement Call Start Time 0849 Admission Date [...] to ER for evaluation, bent over to picker and sorter load and unload an apple and felt a pop in [...] mg by mouth in the morning. HYDROcodone-acetaminophen (Meredosia) 5-325 MG tablet Take 1 tablet by [...] Right 08/08/[address] Rutherford. [facility] ID REPAIR OF HAMMERTOE,ONE Bilateral Procedure:Surgical repair;Disease:Hammer [...] fail to improve. documented in this encounter [facility] 10-28-2024 History of Present illness Narrative Associated [...] male here for an annual wellness visit. [facility] I have reviewed and reconciled the [...] mg by mouth in the morning. HYDROcodone-acetaminophen (Meredosia) 5-325 MG tablet Take 1 tablet by [...] Do you have a medical power of prosecuting attorney?: Yes Objective : BP 132/82 Pulse [...] October 28, 2024 documented in this encounter [facility] 01-16-2024 History of Present illness Narrative Images from the original note were not included. Chief Complaint Patient presents with Pelvis - Follow-up HISTORY OF PRESENT ILLNESS: Enrique Mike is an 88 y.o. @ male. Low back/pelvis injury x 10 weeks 2 days, 11/05/23, fell back off a ladder. Went to [facility] ER 11/05, had CT abdomen pelvis [...] in tailbone with prolonged sitting. Prior tx: [facility] ER 11/06/23, CT abdomen pelvis, norco, TYL, XR [facility] 12/19/23, XR [facility] 01/16/24 ALLERGIES: No Known Allergies HOME MEDICATIONS: Current Outpatient Medications Medication Instructions acetaminophen (TYLENOL) 325 mg, Oral, Every 6 hours PRN baclofen (LIORESAL) 10 mg, Oral, 2 times daily PRN co-enzyme Q-10 100 mg, Oral, Daily finasteride (PROSCAR) 5 mg, Oral, Daily HYDROcodone-acetaminophen (Meredosia) 5-325 MG tablet 1 tablet, Oral, Every [...] rami and left acetabulum fracture. Lita Silvestre CHARGING CRANE OPERATOR-INSURANCE INSPECTOR ASSESSMENT: ICD-10-CM 1. Closed fracture of multiple [...] develop for requiring urgent evaluation. Lita Silvestre CHARGING CRANE OPERATOR-INSURANCE INSPECTOR documented in this encounter [facility] 01-09-2024 History of Present illness Narrative Subjective [...] mg by mouth in the morning. HYDROcodone-acetaminophen (Meredosia) 5-325 MG tablet Take 1 tablet by [...] Right 08/08/[address] Rutherford. [facility] ID REPAIR OF HAMMERTOE,ONE Bilateral Procedure:Surgical repair;Disease:Hammer [...] now scabbed. He is doing well with [employer]. Pt is being told by PM to [...] Appointment As Scheduled. documented in this encounter [facility] 12-26-2023 History of Present illness Narrative Images [...] like.He has been using a cream the in store representative prescribed (doesn't know the name of the [...] mg by mouth in the morning. HYDROcodone-acetaminophen (Meredosia) 5-325 MG tablet Take 1 tablet by [...] Right 08/08/[address] Rutherford. [facility] ID REPAIR OF HAMMERTOE,ONE Bilateral Procedure:Surgical repair;Disease:Hammer [...] vaccination - Influenza, high-dose seasonal, quadrivalent, PF (UYP405) (Fluzone High Dose Quad North 0.7mL dose) Provided pt with Flu shot today. He tolerated this well. Follow up for Wound Check in 1-2 Weeks. documented in this encounter [facility] 12-25-2023 Telephone encounter Note Sounds good [facility] Work Phone: 12-25-2023 Miscellaneous Notes Sounds good I can see him in [place] today but I dont know how much I will be able to do. Gerardo mayfield called for patient stated his dad was seen for L-spine and hip pain by you and Dr Rutherford he was referred to pain mgmt in [facility] also, he can hardly walk and in a lot of pain. He asked where he should start, he did try [facility] mgmt number but had trouble getting ahold of them, I gave him the number to hospital and told him to ask for pain mgmt. He asked should he go there or can you or Dr Rutherford see him? Please advise. His call back [phone] documented in this encounter [facility] 12-25-2023 Telephone encounter Note I can see him in [place] today but I dont know how much I will be able to do. [facility] 12-25-2023 Telephone encounter Note Gerardo mayfield called for patient stated his dad was seen for L-spine and hip pain by you and Dr Rutherford he was referred to pain mgmt in [facility] also, he can hardly walk and in a lot of pain. He asked where he should start, he did try [facility] mgmt number but had trouble getting ahold of them, I gave him the number to hospital and told him to ask for pain mgmt. He asked should he go there or can you or Dr Rutherford see him? Please advise. His call back [phone] [facility] 12-19-2023 History of Present illness Narrative Images from the original note were not included. Chief Complaint Patient presents with Pelvis - Follow-up HISTORY OF PRESENT ILLNESS: Enrique Mike is an 88 y.o. @ male. Low back/pelvis injury x 6 weeks 2 days, 11/05/23, fell back off a ladder. Went to [facility] ER 11/05, had CT abdomen pelvis and given norco. Hx decompressive laminectomy L3-4, L4-5 (12/01/21)- Dr Rutherford Walking with a walker. States he was doing fine but has recently been having a terrible time. Unsure if something shifted. Pain is mostly LT sided. Taking TYL and IBU. Prior tx: [facility] ER 11/06/23, CT abdomen pelvis, norco, TYL, XR [facility] 12/19/23 ALLERGIES: No Known Allergies HOME MEDICATIONS: Current Outpatient Medications Medication Instructions acetaminophen (TYLENOL) 325 mg, Oral, Every 6 hours PRN baclofen (LIORESAL) 10 mg, Oral, 2 times daily PRN co-enzyme Q-10 100 mg, Oral, Daily finasteride (PROSCAR) 5 mg, Oral, Daily HYDROcodone-acetaminophen (Meredosia) 5-325 MG tablet 1 tablet, Oral, Every [...] rami and left acetabulum fracture. Lita Silvestre CHARGING CRANE OPERATOR-INSURANCE INSPECTOR ASSESSMENT: ICD-10-CM 1. Closed fracture of multiple [...] develop for requiring urgent evaluation. Lita Silvestre APRN-INSURANCE INSPECTOR documented in this encounter [facility] 11-23-2023 History of Present illness Narrative Images from the original note were not included. Chief Complaint Patient presents with Pelvis - Follow-up HISTORY OF PRESENT ILLNESS: Enrique Mike is an 88 y.o. @ male. Low back/pelvis injury x 2 weeks 4 days, 11/05/23, fell back off a ladder. Went to [facility] ER 11/05, had CT abdomen pelvis and given norco. Hx decompressive laminectomy L3-4, L4-5 (12/01/21)- Dr Rutherford WBAT with walker. States he sat for a while in a hard chair, had increased pain. Pain near RT hip/buttocks. Taking TYL. Denies N/T. Does not wake at HS, sleep better in chair. Increased pain with walking. Prior tx: [facility] ER 11/06/23, CT abdomen pelvis, norco, TYL ALLERGIES: No Known Allergies HOME MEDICATIONS: Current Outpatient Medications Medication Instructions acetaminophen (TYLENOL) 325 mg, Oral, Every 6 hours PRN baclofen (LIORESAL) 10 mg, Oral, 2 times daily PRN co-enzyme Q-10 100 mg, Oral, Daily finasteride (PROSCAR) 5 mg, Oral, Daily HYDROcodone-acetaminophen (Meredosia) 5-325 MG tablet 1 tablet, Oral, Every [...] rami and left acetabulum fracture. Lita Silvestre CHARGING CRANE OPERATOR-INSURANCE INSPECTOR ASSESSMENT: ICD-10-CM 1. Closed fracture of multiple [...] develop for requiring urgent evaluation. Lita Silvestre CHARGING CRANE OPERATOR-INSURANCE INSPECTOR documented in this encounter [facility] 11-09-2023 History of Present illness Narrative Images from the original note were not included. Chief Complaint Patient presents with Lower Back - Pain HISTORY OF PRESENT ILLNESS: Enrique Mike is an 88 y.o. @ male. Est pt, new problem. Low back/pelvis injury x 4 days, 11/05/23, fell back off a ladder. Went to [facility] ER 11/05, had CT abdomen pelvis and given norco. Hx decompressive laminectomy L3-4, L4-5 (12/01/21)- Dr Rutherford Walking with a walker. Denies pain in low back. Pain near RT hip/buttocks. Taking TYL. Denies N/T. Does not wake at HS, sleep better in chair. Increased pain with walking. Prior tx: [facility] ER 11/06/23, CT abdomen pelvis, norco ALLERGIES: No Known Allergies HOME MEDICATIONS: Current Outpatient Medications Medication Instructions acetaminophen (TYLENOL) 325 mg, Oral, Every 6 hours PRN baclofen (LIORESAL) 10 mg, Oral, 2 times daily PRN co-enzyme Q-10 100 mg, Oral, Daily finasteride (PROSCAR) 5 mg, Oral, Daily HYDROcodone-acetaminophen (Meredosia) 5-325 MG tablet 1 tablet, Oral, Every [...] of multiple pubic rami, right, initial encounter ([facility]) S32.591A 2. Nondisplaced fracture of medial wall of left acetabulum, initial encounter for closed fracture ([facility]) S32.475A Procedures PLAN: I reviewed [...] develop for requiring urgent evaluation. Lita Silvestre CHARGING CRANE OPERATOR-INSURANCE INSPECTOR documented in this encounter [facility] 10-30-2023 History of Present illness Narrative Associated Problem(s): Embolism and thrombosis of unspecified artery ([facility]) Baby aspirin 2 a day [...] Do you have a medical power of prosecuting attorney?: Yes Objective : BP 138/82 Pulse [...] reading needs magnifier documented in this encounter [facility] 06-05-2023 Miscellaneous Notes ----- Message from ALMA ROSA Escobedo sent at 06/02/2023 3:21 PM EDT ----- Please arrange 4-6 week follow-up with Dr. Duff, Dr. 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 Duff, Dr. 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 HARRIS [...] or concerns, please call the office at [phone] -Follow up as scheduled [facility] 06-22-2021 Note [facility] Clinical Discharge Summary PERSON INFORMATION Name ENRIQUE MIKE Age 85 Years 1935 Sex MALE Language Kyrgyz PCP JERMAIN MENCHACA MD Marital Status Med Service Observation Acct# Arrival 06/21/2021 05:54:00 Visit Reason SURGERY - LEFT REVERSE TOTAL SHOULDER - ARTHREX Acuity LOS 000 29:26 Address: [address] [place] [address] Comment: PROVIDER INFORMATION VITALS INFORMATION Vital Sign [...] EDUCATION INFORMATION Instructions: [facility] Follow up: With: Address: When: Enrique Rutherford [address] [place] [address], [address] [place] [address] Business (1) 06/29/2021 10:45 AM DIAGNOSIS Osteoarthritis of left shoulder; Other specific arthropathies, not elsewhere classified, left shoulder; Rotator cuff tear arthropathy of left shoulder Comment: PHYS DOC NOTES [facility] 06-21-2021 Note [id number] Evaluation note Diagnosis Closed fracture of multiple pubic rami, right, with routine healing, subsequent encounter Closed nondisplaced fracture of medial wall of left acetabulum with routine healing, subsequent encounter documented in this encounter [facility] HealthcareEvaluation note* Diagnosis Screening PSA (prostate [...] facility Routine general medical examination at a [facility] care facility Acquired hypothyroidism Unspecified hypothyroidism [...] Primary Routine general medical examination at a [facility] care facility Benign essential hypertension Essential [...] encounter [facility] HealthcareInstructionsNot on filedocumented in this [facility] Summary Purpose Family History No [...] section and content) DATE CREATED AUTHOR 10/13/2021 [facility] DATE CREATED AUTHOR AUTHOR'S ORGANIZ ATION 10/18/2021 [facility] dical Specialist DATE CREATED AUTHOR AUTHOR'S ORGANIZ ATION 12/20/2021 [facility] DATE CREATED AUTHOR AUTHOR'S ORGANIZ ATION 11/02/2024 [facility] DATE CREATED AUTHOR AUTHOR'S ORGANIZ ATION 11/07/2024 [facility] DATE CREATED AUTHOR AUTHOR'S ORGANIZ ATION 11/24/2024 [facility] d[facility] Specialists EPIC DATE CREATED AUTHOR AUTHOR'S ORGANIZ ATION 11/30/2024 [facility] Care Teams (unrecognized sec tion and content) Mining Engineer Relationship Specialty Start Date End Date Jermain Menchaca MD [address] [place] [address] [address] [place] [address] PCP - General Family Medicine 07/04/22 Jermain Menchaca MD [address] [place] [address] [place] [address] PCP - ACO Reach 07/14/22 Mining Engineer Relationship Specialty Start Date End Date Jermain Menchaca MD [address] [place] [address] [place] [address] PCP - General Family Medicine 07/04/22 Jermain Menchaca MD [address] [place] [address] [place] [address] PCP - ACO Reach 07/14/22 Mining Engineer Relationship Specialty Start Date End Date Jermain Menchaca MD [address] [place] [address] [place] [address] PCP - General Family Medicine 07/04/22 Jermain Menchaca MD [address] [place] [address] [place] [address] PCP - ACO Reach 07/14/22 Mining Engineer Relationship Specialty Start Date End Date Jermain Menchaca MD [address] [place] [address] [place] [address] PCP - General Family Medicine 07/04/22 Jermain Menchaca MD [address] [place] [address] [place] [address] PCP - ACO Reach 07/14/22 Mining Engineer Relationship Specialty Start Date End Date Jermain Menchaca MD [address] [place] [address] [place] [address] PCP - General Family Medicine 07/04/22 Jermain Menchaca MD [address] [place] [address] [place] [address] PCP - ACO Reach 07/14/22 Mining Engineer Relationship Specialty Start Date End Date Jermain Menchaca MD [address] [place] [address] [place] [address] PCP - General Family Medicine 07/04/22 Jermain Menchaca MD [address] [place] [address] [place] [address] PCP - ACO Reach 07/14/22 Mining Engineer Relationship Specialty Start Date End Date Jermain Menchaca MD [address] [place] [address] [place] [address] PCP - General Family Medicine 07/04/22 Jermain Menchaca MD [address] [place] [address] [place] [address] PCP - ACO Reach 07/14/22 Mining Engineer Relationship Specialty Start Date End Date Jermain Menchaca MD [address] [place] [address] [place] [address] PCP - General Family Medicine 07/04/22 Jermain Menchaca MD [address] [place] [address] [place] [address] PCP - ACO Reach 07/14/22 Mining Engineer Relationship Specialty Start Date End Date Jermain Menchaca MD [address] [place] [address] [place] [address] PCP - General Family Medicine 07/04/22 Jermain Menchaca MD [address] [place] [address] [place] [address] PCP - ACO Reach 07/14/22 Mining Engineer Relationship Specialty Start Date End Date Jermain Menchcaa MD [address] [place] [address] [place] [address] PCP - General Family Medicine 07/04/22 Jermain Menchaca MD [address] [facility] [address] [place] [address] PCP - ACO Reach 07/14/22 Mining Engineer Relationship Specialty Start Date End Date Jermain Menchaca MD [address] [facility] [address] [place] [address] PCP - General Family Medicine 07/04/22 Jermain Menchaca MD [address] [facility] [address] [place] [address] PCP - ACO Reach 07/14/22 Mining Engineer Relationship Specialty Start Date End Date Jermain Menchaca MD [address] [facility] [address] [place] [address] PCP - General Family Medicine 07/04/22 Jermain Menchaca MD [address] [facility] [address] [place] [address] PCP - ACO Reach 07/14/22 Mining Engineer Relationship Specialty Start Date End Date Jermain Menchaca MD [facility] [place] [address] PCP - General Family Medicine 08/03/18 Mining Engineer Relationship Specialty Start Date End Date Jermain Menchaca MD [address] [facility] [address] [place] [address] PCP - General Family Medicine 07/04/22 Jermain Menchaca MD [address] [facility] [address] [place] [address] PCP - ACO Reach 07/14/22 Mining Engineer Relationship Specialty Start Date End Date Jermain Menchaca MD [address] [facility] [address] [place] [address] PCP - General Family Medicine 07/04/22 Jermain Menchaca MD [address] [facility] [address] [place] [address] PCP - ACO Reach 07/14/22 Reason for [...] BE BASED ON THE PRIMARY CLINICAL RECORDS. [employer] [facility]. provides no warranty or guarantee of the accuracy or completeness of information in this document.
[2024-12-09 11:55] VITALS: BP 138/71; PULSE 71; TEMP 36.6; O2SAT 96
[2024-12-09 12:29] VITALS: BP 156/80; PULSE 77; O2SAT 95
[2024-12-09 12:30] VITALS: BP 165/77; PULSE 74; O2SAT 99
[2024-12-09] MEDS: BUPIVACAINE HCL 0.25% PF 25 MG/10 ML VIAL 2 ML INJ (12:31)
[2024-12-09] MEDS: LIDOCAINE HCL 2% 400 MG/20 ML MDV INJ (12:32)
[2024-12-09] MEDS: METHYLPREDNISOLONE ACETATE 40 MG/ML VIAL 80 MG INJ (12:32)
[2024-12-09] MEDS: IOHEXOL 240 MG/ML - 10 ML VIAL INJ (12:32)
--- NOTE | 2024-12-09 12:35 | W.PM.PROCNOT ---
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 The skin overlying the area was prepped and draped in standard sterile fashion using alcohol.? A 25-gauge needle was inserted towards the left sacroiliac joint under direct fluoroscopic imaging.? Needle tip was advanced until the joint was encountered.? We instilled a total of 2 mL of solution.? The same procedure was then completed on the right side.? Postoperatively needles were removed.? The patient tolerated the procedure well without complication.? The patient reported reduction in pain symptoms postoperatively. Anesthesia: Local Surgeon: Alberto Pacheco Pathology: none sent Condition: stable Disposition: no change
== END 2024-12-09 12:37 | disposition home or self-care (01) ==
PROVIDERS: PCP Family Medicine; Visit Provider Anesthesiology
DX: M46.1 Sacroiliitis, not elsewhere classified (principal)
CPT/HCPCS: 27096; J0665; J1010; Q9966

== ENCOUNTER 2024-12-18 13:21 | Outpatient (OUT) | payer MEDICARE, SELFPAY ==
--- OUTSIDE RECORDS SUMMARY | 2024-12-18 13:24 | XMS_ITS | Clinical Summary ---
Author Organization [facility] Address [address] [place] [address] Care Team Providers Care Plant Safety Leader Name Role Phone Zita Monique MD Primary Care Provider [phone] Zita Monique MD Unavailable Allergies No known active allergies Medications MedicationSigDispense QuantityRefillsLast FilledStart DateEnd DateStatus co-enzyme Q-10 30 MG capsule Take 100 mg by mouth in the morning.Active acetaminophen (Tylenol) 325 MG tablet Take 325 mg by mouth every 6 (six) hours if needed for mild pain.Active Nutritional Supplements (PROSTA JENISE PO) Take by mouth 2 (two) times a day.Active finasteride (Proscar) 5 MG tablet Take 5 mg by mouth in the morning.07/15/2022ctive baclofen (Lioresal) 10 MG tablet Indications:CervicalgiaTake 1 tablet (10 mg) by mouth 2 (two) times a day as needed for muscle spasms. 60 tablet ctive HYDROcodone-acetaminophen ([place]) 5-325 MG tablet Take 1 tablet by mouth every 6 (six) hours if taisjq4811/06/2023ctive traMADol (Ultram) 50 MG tablet Take 50 mg by mouth every 6 (six) hours if needed for severe painActive lovastatin (Mevacor) 20 MG tablet Indications:Pure hypercholesterolemia, unspecifiedTake 1 tablet (20 mg) by mouth in the evening. Take with meals 100 tablet 5Active meloxicam (Mobic) 15 MG tablet Indications:Primary osteoarthritis, right handTAKE 1 TABLET BY MOUTH IN THE MORNING WITH FOOD 100 tablet 5Active levothyroxine (Synthroid, Levoxyl) 100 MCG tablet Indications:Hypothyroidism, unspecifiedTAKE 1 TABLET BY MOUTH DAILY *hold on sundays* 90 tablet 5Active lisinopril 10 MG tablet Indications:Benign essential hypertensionTake 1 tablet (10 mg) by mouth Daily 100 tablet 5Active tamsulosin (Flomax) 0.4 MG 24 hr capsule Indications:Retention of urine, unspecifiedTake 1 capsule (0.4 mg) by mouth Daily 100 capsule 5Active Ferrous Sulfate (iron) 325 (65 Fe) MG tablet Take 65 mg by mouth DailyActive Cyanocobalamin (VITAMIN B 12 PO) Take 1,000 mcg by mouth DailyActive naproxen (Naprosyn) 375 MG tablet Take 375 mg by mouth in the morning and 375 mg in the evening. Take with meals. 5011/19/2024Expired Active Problems ProblemNoted DateDiagnosed DateAcute hip pain, left11/19/2024 Assessment & Plan (11/19/2024 9:36 AM EDT): Stretching and strengthening exercises. 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 Sees everything in a fog Not driving anymore Assessment & Plan (10/30/2023 2:07 PM EDT): Baby aspirin 2 a day 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06/13/2023 Assessment & Plan (06/13/2023 3:35 PM EDT): Increase aspirin to 81 mg 2 a day Consider Neuro Ophthalmology Reviewed tests no PE abnormalities besides vision TIA due to nmenmlrc96/11/2024 Assessment & Plan (10/30/2023 2:00 PM EDT): No current symptoms Retina Specialist is not doing much Not much reading needs magnifier Great toe pain, left04/10/2023aronychia of great toe of left foot04/10/2023 Assessment & Plan (04/10/2023 8:27 AM EST): Add Probiotic to help replenish the good bacteria that are destroyed by the Antibiotics Florastor Florajen Align or try Activia in Yogurt Probiotics reduce the risk of antibiotic induced diarrhea Medicare annual wellness visit, /22/2023 Assessment & Plan (10/28/2024 9:37 AM EDT): Colonoscopy every 10 years or Cologuard every 3 years ages 50-75 Flu Vaccine yearly Pneumovax and Prevnar Mammo yearly for women and PSA yearly for men Labs/Screening yearly to rule out Diabetes, Chronic Kidney disease and liver disease Hepatitis Screen forat risk populations Shingles vaccine after65 if indicated Tetanus Vaccine every 10 years Lipids yearly under the age of 75 If Smoking history: one time CT scan of chest and Ultrasound of Aorta to screen for Anuerysm Mcfmcyzluom32/22/2023 Assessment & Plan (10/11/2022 9:39 AM EDT): Offerred PT but declined Baclofen minimmally effective Arthritis of right hip10/04/2022Status post reverse total arthroplasty of left wmabeimc59/15/2023Unspecified rotator cuff tear or rupture of left shoulder, not specified as atxbyfsfy43/15/2023Stage 3b chronic kidney gpcgznt7610/04/2022 Assessment & Plan (10/11/2022 9:41 AM EDT): Increase fluids check labs Pure dtockkfomkpuffamwfem40/15/2023 Assessment & Plan (10/30/2023 1:57 PM EDT): This is a chronic medical condition that is stable since last assessment. No changes in treatment are suggested at this time. Continue Current meds. Osteoarthritis of both hands10/04/2022H/O hzkvbw2910/04/2022Family history of ischemic heart wcpuibh3110/04/2022Ex-haszad2110/04/2022egenerative disc disease, eqxcru2110/04/2022arpal tunnel syndrome of right wrist10/04/2022asal cell carcinoma (BCC) of face10/04/2022Osteoarthritis of left daanrqao20/04/2023S/P shoulder replacement, left06/23/20220722Frezimnw01/20/2022enign essential otmfhsdruiwm69/20/2022 Assessment & Plan (10/28/2024 9:36 AM EDT): Our specific goals, for your hypertension, is to keep your blood pressure less than 140/90, and theimportance of weight control. We made recommendations on [...] the importance of taking them as prescribed. [employer] handouts Assessment & Plan (04/29/2024 9:56 AM EDT): Our specific goals, for your hypertension, is to keep your blood pressure less than 140/90, and theimportance of weight control. We made recommendations on [...] the importance of taking them as prescribed. [employer] diet handouts Assessment & Plan (10/30/2023 1:57 PM EDT): Our specific goals, for your hypertension, is to keep your blood pressure less than 140/90, and theimportance of weight control. We made recommendations on [...] taking them as prescribed. [employer] diet handouts Assessment & Plan (04/10/2023 8:23 AM EST): Our specific goals, for your hypertension, is to keep your blood pressure less than 140/90, and theimportance of weight control. We made recommendations on [...] taking them as prescribed. [employer] diet handouts Assessment & Plan (10/11/2022 9:38 AM EDT): Our specific goals, for your hypertension, is to keep your blood pressure less than 140/90, and theimportance of weight control. We made recommendations on [...] taking them as prescribed. [employer] diet handouts Jhvaqcjiblurns14/20/2022 Assessment & Plan (10/11/2022 9:39 AM EDT): No Constipation, No Fatigue Zuoadcixluzi87/20/2022Spinal stenosis of lumbar region at multiple levels 12/01/2021 Encounters DateTypeDepartmentCare DrmwZeqxksunvsl56/30/2025 9:30 AM EDTOffice Visit [facility] [place] [facility] [address] [facility] [address] [place] [address] Zita Monique MD Acute hip pain, left (Primary Dx); Piriformis syndrome of left side11/19/20241937Qrcsfn11/19/2025Patient Outreach [facility] [place] [address] [place] [address] Shannan Veliz RN 10/31/2024Results Follow-Up [facility] [place] [address] [place] [address] Zita Monique MD Lipid panel, CBC and differential, Comprehensive metabolic panel10/29/2024 Abstract [facility] [place] [address] [place] [address] Zita Monique MD 10/28/2024 9:30 AM EDTOffice Visit [facility] [place] [facility] [address] [facility] [address] [place] [address] Zita Monique MD Routine general medical examination at [facility] facility (Primary Dx); Benign essential hypertension ; Pure hypercholesterolemia ; Medicare annual wellness visit, subsequent; Retention of urine, zbuenmatbub07/08/2025amboo flowsheet [facility] [place] [facility] [address] [facility] [address] [place] [address] Zita Monique MD 10/28/20242557Wagrxk82/19/2025bstract [facility] [place] [facility] [address] [facility] [address] [place] [address] Zita Monique MD 10/03/2024Refill [facility] [place] [address] [facility] [address] [place] [address] Zita Monique MD Benign essential hypertensionfrom Last 3 Months Immunizations ImmunizationAdministration DatesNext DueInfluenza Whole11/14/2012,11/22/2011, 11/17/2010,12/02/2009,11/26/2008,12/06/2006Influenza, High Dose Seasonal, Preservative Free12/22/2022,12/20/2017,11/01/2016,01/03/2015Influenza, High-dose Seasonal, Quadrivalent, Preservative Free12/26/2023,12/18/2021,12/01/2020 Influenza, Injectable, MDCK, preservative free11/19/2015Influenza, Unspecified 10/29/2015Influenza, injectable, quadrivalent, preservative free12/16/2019, 12/10/2018,12/11/2017Influenza, seasonal, injectable, preservative free 10/29/2015Moderna Bivalent Booster Kxmqhpikhtv57/29/2022Pneumococcal Conjugate PCV 13011/01/2016Pneumococcal Polysaccharide RNXH3428Pneumococcal, Tswkogglgus30/23/2015 Family History Medical HistoryRelationNameCommentsHeart diseaseFatherHeart diseaseMother RelationNameStatusCommentsFatherDeceasedAAAMotherDeceased Social History Tobacco UseTypesPacks/DayYears UsedDateSmoking Tobacco: FormerCigarettesQuit: 1970Smokeless Tobacco: Never Tobacco Cessation:Counseling Given: Not Answered Alcohol UseStandard Drinks/WeekCommentsYes0 (1 standard drink = 0.6 oz pure alcohol)1-2 drinks monthly or lessPHQ-2AnswerDate RecordedPatient Health Questionnaire-2 Rzuad266Sex and Gender InformationValueDate RecordedSex Assigned at BirthNot on fileLegal NufNzpw2105/04/2022 6:39 PM EDTGender Identity Not on fileSexual OrientationNot on file Last Filed Vital Signs Vital SignReadingTime TakenCommentsBlood Gtixcyss282/8409 9:30 AM EDT Iznga465111/19/2024 9:30 AM EDTTemperature--Respiratory Povb596303/10/2023 8:28 AM ESTOxygen Wnjfbgxrug19%11/19/2024 9:30 AM EDTInhaled Oxygen Concentration-- Etlnoz83.2 kg (168 lb)11/19/2024 9:30 AM NRRGdmezx892.3 cm (5' 9 )11/19/2024 9:30 AM EDTBody Mass Index24.8111/19/2024 9:30 AM EDT Plan of Treatment DateTypeDepartmentCare Team (Latest Contact Info)Gfskoiiskyd69/09/2026 8:30 AM EDTOffice Visit [facility] [place] [facility] [address] [facility] [address] [place] [address] Zita Monique MD [address] [facility] [address] [place] [address] Health MaintenanceDue DateLast DoneCommentsInfluenza Vaccine (#1)10/21/2024 12/26/2023, 12/22/2022, 12/18/2021, Additional history existsMedicare Annual Wellness (AWV)/09/2024, 10/30/2023, 10/11/2022, Additional history existsPneumococcal Vaccine: 65+ BmysbIiolemzkk72/12/2017, 11/21/2015, 04/14/2014 Procedures Procedure NamePriorityDate/TimeAssociated DiagnosisCommentsCOMPREHENSIVE METABOLIC WHYFNAhjosqr52/10/2025 8:09 AM EDT Benign essential hypertension Pure hypercholesterolemia Medicare annual wellness visit, subsequent CBC (INCLUDES DIFF/PLT)Wfeuzjw4510/30/2024 8:09 AM EDT Benign essential hypertension Pure hypercholesterolemia Medicare annual wellness visit, subsequent LIPID JZFPLOqprkja24/10/2025 8:09 AM EDT Pure hypercholesterolemia Medicare annual wellness visit, subsequent from Last 3 Months Results * (ABNORMAL) CBC and differential (10/30/2024 8:09 AM EDT)ComponentValueRef RangeTest MethodAnalysis TimePerformed AtPathologist SignatureWHITE BLOOD CELL COUNT4.93.8 - 10.8 Thousand/uLQUESTRED BLOOD CELL COUNT4.13(L)4.20 - 5.80 Million/nDAKXFVYLPCRQATYR92.1(L)13.2 - 17.1 g/kDJFZRZWWPMEEFXBX94.038.5 - 50.0 %UKHEJKPS75.980.0 - 100.0 sEKLCLNGVU18.727.0 - 33.0 glNGXZANQPG10.832.0 - 36.0 g/dLQUESTComment: For adults, a slight decrease in the calculated MCHC value (in the range of 30 to 32 g/dL) is most likely not clinically significant; however, it should be interpreted with caution in correlation with other red cell parameters and the patient's clinical condition. RDW12.811.0 - 15.0 %QUESTPLATELET FKNGK569733 - 400 Thousand/uLQUESTMPV8.27.5 - 12.5 fLQUESTABSOLUTE NEUTROPHILS2,2881,500 - 7,800 cells/uLQUESTABSOLUTE LYMPHOCYTES1,243265 - 3,900 cells/uLQUESTABSOLUTE DINPWGPXF329008 - 950 cells/uL QUESTABSOLUTE XNTMTVQMHLI61793 - 500 cells/uLQUESTABSOLUTE UEGGHGIHO178 - 200 cells/gUKETPDDXXZWLSNIQY17.7%JUCLQXHPRXYIKZJK03.0%VQFFUDAZYLXDFU72.8%QUEST EOSINOPHILS4.7%QUESTBASOPHILS0.8%QUESTSpecimen (Source)Anatomical Location / LateralityCollection Method / VolumeCollection TimeReceived TimeBloodVenous blood specimen / Ulmjtqx2810/30/2024 8:09 AM EDT10/30/2024 3:32 PM EDT Narrative [facility] - 10/31/2024 3:49 AM EDT FASTING:YES FASTING: YES Resulting Agency Comment Performing Organization Information ?Site ID: [id number] ?Name: [facility] ?Address: [address] [place] [phone] ?Director: Naya Guerra Authorizing ProviderResult TypeResult StatusZita LUNA BLOOD ORDERABLES Final ResultPerforming OrganizationAddressCity/State/ZIP CodePhone Number [facility] * Lipid panel (10/30/2024 8:09 AM EDT)ComponentValueRef RangeTest MethodAnalysis TimePerformed AtPathologist SignatureCHOLESTEROL, VQBDL545<200 mg/dLQUESTHDL GYWHBAFZGUS06> OR = 40 mg/lYSZRYIJEGBIBTYSTMYF24<150 mg/dLQUESTLDL CHOLESTEROL 94mg/dL (calc)QUESTComment: Reference range: <100 Desirable range <100 mg/dL for primary prevention; <70 mg/dL for patients with CHD or diabetic patients with > or = 2 CHD risk factors. LDL-C is now calculated using the Jaycob-Rebekah calculation, which is a validated novel method providing better accuracy than the Friedewald equation in the estimation of LDL-C. Jaycob SHEPPARD et al. SUSAN. 2013;310(19): 6911-9332 (http://education.Drive.SG.FMS [facility]/faq/HPV897) CHOL/HDLC RATIO3.5<5.0 (calc)QUESTNON HDL OQWAWCTNVVU052<130 mg/dL (calc)QUEST Comment: For patients with diabetes plus 1 major ASCVD risk factor, treating to a non-HDL-C goal of <100 mg/dL (LDL-C of <70 mg/dL) is considered a therapeutic option. Specimen (Source)Anatomical Location / LateralityCollection Method / Volume Collection TimeReceived TimeBloodVenous blood specimen / Mzmhtps0510/30/2024 8:09 AM EDT10/30/2024 3:32 PM EDT Narrative [facility] - 10/31/2024 3:49 AM EDT FASTING:YES FASTING: YES Resulting Agency Comment Performing Organization Information ?Site ID: QPT ?Name: [facility] ?Address: [address] [place] [address], [address] [place] [phone] ?Director: Iron Nicole MD Authorizing ProviderResult TypeResult StatusZita Monique MDLAB BLOOD ORDERABLES Final ResultPerforming OrganizationAddressCity/State/ZIP CodePhone Number [facility] * Comprehensive metabolic panel (10/30/2024 8:09 AM EDT)ComponentValueRef Range Test MethodAnalysis TimePerformed AtPathologist SybifkmtvLwzhvqo3270 - 99 mg/dLQUESTComment: ? Fasting reference interval VXN252 - 25 mg/dLQUESTCreatinine1.170.70 - 1.22 mg/lURINPSQFLP55> OR = 60 mL/min/1.96p2HEQHRHEX/CREATININE RATIOSEE NOTE:6 - (calc)QUESTComment: ?? Not Reported: BUN and Creatinine are within ?? reference range. ? Jctnid800149 - 146 mmol/LQUESTPotassium, Bld4.93.5 - 5.3 mmol/URXFOKNomloxlc937 98 - 110 mmol/LQUESTCarbon Ffsmhdz7343 - 32 mmol/LQUESTCalcium9.28.6 - 10.3 mg/dLQUESTPROTEIN, TOTAL6.66.1 - 8.1 g/dLQUESTALBUMIN4.33.6 - 5.1 g/dLQUEST GLOBULIN2.31.9 - 3.7 g/dL (calc)QUESTALBUMIN/GLOBULIN RATIO1.91.0 - 2.5 (calc) QUESTBILIRUBIN, TOTAL0.60.2 - 1.2 mg/dLQUESTALKALINE AKSFKHJWGDR6474 - 144 U/L UNKAYNUJ0594 - 35 U/FIMFAQEOS696 - 46 U/LQUESTSpecimen (Source)Anatomical Location / LateralityCollection Method / VolumeCollection TimeReceived TimeBlood Venous blood specimen / Unfpxei8710/30/2024 8:09 AM EDT10/30/2024 3:32 PM EDT Narrative [facility] - 10/31/2024 3:49 AM EDT FASTING:YES FASTING: YES Resulting Agency Comment Performing Organization Information ?Site ID: QTW ?Name: [facility] ?Address: [address] [place] [phone] ?Director: Naya Guerra Authorizing ProviderResult TypeResult StatusZita Monique MDLAB BLOOD ORDERABLES Final ResultPerforming OrganizationAddressCity/State/ZIP CodePhone Number [facility] from Last 3 Months Insurance Care Teams Team MemberRelationshipSpecialtyStart DateEnd Date Zita Monique MD [address] [facility] [address] [place] [address] [facility] - [facility] Zita Monique MD [address] [place] [address] [place] [address] PCP - [facility]07/14/22
--- OUTSIDE RECORDS SUMMARY | 2024-12-18 13:24 | XMS_ITS | Clinical Summary ---
Author Organization [facility] Address [id number] [address] [place] [address] Care Team Providers Care Miller Supervisor Name Role Phone Zita Monique MD Primary Care Provider [phone] Allergies Active AllergyReactionsCriticalityNoted DateCommentsNo Known Drug Allergies 05/12/2016 Medications MedicationSigDispense QuantityRefillsLast FilledStart DateEnd DateStatus lovastatin (MEVACOR) 20 mg tablet Take 1 tablet (20 mg total) by mouth nightly.Active levothyroxine (SYNTHROID, LEVOTHROID) 100 MCG tablet Take 1 tablet (100 mcg total) by mouth in the morning.Active coenzyme Q10 30 mg capsule Take 200 mg by mouth in the morning.Active acetaminophen (TYLENOL EXTRA STRENGTH) 500 mg tablet Take 1 tablet (500 mg total) by mouth every 6 (six) hours as needed for pain. Active BIOFLAVONOIDS, [place] ORAL Take by mouth daily.Active vitamins A,C,H-sbpx-ztwcqk (ICAPS AREDS) 14,320-226-200 valx-ij-aexx capsule Take 1 capsule by mouth in the morning.Active linaCLOtide (LINZESS) 145 mcg capsule Take 1 capsule (145 mcg total) by mouth every morning before breakfast. 30 capsule ctive tamsulosin (FLOMAX) 0.4 mg capsule Take 1 capsule (0.4 mg total) by mouth nightly. 30 capsule ctive aspirin 81 mg chewable tablet Chew 1 tablet (81 mg total) and swallow in the morning. 30 tablet ctive HYDROcodone-acetaminophen (NORCO) 5-325 mg per tablet Indications:Closed fracture of multiple rami of right pubis, initial encounter ([facility])Take 1 tablet by mouth every 6 (six) hours as needed for pain for up to 10 doses. Max Daily Amount:4 tablets 10 tablet 11/06/2023ctive Active Problems ProblemNoted DateDiagnosed DateVisual ggmmhdamtob66/12/3020Xylfaa08/11/2024TIA due to /11/0807Jfyziedetrjc70/20/2022Essential otiybjmefzvv45/20/2022 Lxwxzkttoepcvs22/20/0037Hehnreks07/20/2022AKI (acute kidney injury)12/09/2021 Acute urinary aomiwcxob41/20/2022General yakeqsbe26/20/2022Hyponatremia 12/08/2021pinal stenosis of lumbar region at multiple ncjjtw9812/01/2021 Encounters DateTypeDepartmentCare QxctRdtblewzvat35/17/2025 9:06 AM EDT - 11/06/2024 9:54 AM EDTEmergency [facility] [address] [place] [address] Oscar Watkins MD Strain of left hip, initial encounter (Primary Dx) Discharge Disposition: Home11/06/2024Travelfrom Last 3 Months Immunizations ImmunizationAdministration DatesNext DueInfluenza, Jkmqbqrtjil64/08/2016 Family History Medical HistoryRelationNameCommentsHyperlipidemiaBrotherHeart diseaseFatherHeart diseaseMotherRelationNameStatusCommentsBrotherFatherDeceasedMotherDeceased Social History Tobacco UseTypesPacks/DayYears UsedDateSmoking Tobacco: FormerSmokeless Tobacco: Never Tobacco Cessation:Counseling Given: Not Answered Comments:Quit smoking over 40 years ago Alcohol UseStandard Drinks/WeekCommentsYes0 (1 standard drink = 0.6 oz pure alcohol)[facility] with [facility] UtilitiesAnswerDate RecordedIn the past 12 months has the [employer], gas, oil, or water Sape threatened to shut off services in your home?No06/01/2023RAPARE - TransportationAnswerDate RecordedIn the past 12 months, has lack of transportation kept you from medical appointments or from getting medications?No06/01/2023In the past 12 months, has lack of transportation kept you from meetings, work, or from getting things needed for daily living?No06/01/2023Housing InstabilityAnswerDate RecordedAre you worried or concerned that in the next two months you may not have stable housing that you own, rent or stay in as a part of a household?No4ChildcareAnswer Date BbtwlercMlegmkpuoHupvlxf41/12/2019EmploymentAnswerDate RecordedEmployment Edjtxgw8908/01/2018Hunger ScreeningAnswerDate RecordedWithin the past 12 months we worried whether our food would run out before we got money to buy more.Never True11/06/2023Within the past 12 months the food we bought just didn't last and we didn't have money to get more.Never True4Purpose - LifeAnswerDate RecordedPurpose and direction in mlmdKhdpwzg66/11/2021ex and Gender Information ValueDate RecordedSex Assigned at BirthNot on fileLegal VhpRhye5909/25/2014 11:33 AM EDTGender IdentityNot on fileSexual OrientationNot on file Last Filed Vital Signs Vital SignReadingTime TakenCommentsBlood Ogecuzro151/7911/06/2024 9:45 AM EDT Nswce3312/17/2025 9:09 AM FCTUslzclymrdm26.4 ??C (97.5 ??F)11/06/2024 9:09 AM EDTRespiratory Ujze258911/06/2024 9:09 AM EDTOxygen Qjdnozqzbp79%11/06/2024 9:45 AM EDTInhaled Oxygen Concentration--Xcnsdm32.6 kg (160 lb)11/06/2024 9:09 AM EDT Pmkftt522.7 cm (5' 8 )11/06/2024 9:09 AM EDTBody Mass Index24.33011/06/2024 9:09 AM EDT Plan of Treatment Health MaintenanceDue DateLast DoneCommentsDepression Mumgbmjho94[birth year]05/1948 DTaP,Tdap and Td Vaccines (1 - Tdap)08/25/1955Zoster (Shingles) Vaccine (1 of 2) 1986Fall Risk Cpumbzwbd35/05/2002COVID-19 Vaccine (2024- season) /03/2022, 12/18/2021, 07/16/2021, Additional history existsInfluenza Uyukcxa26/06/2023, 12/22/2022, 12/18/2021, Additional history exists Tobacco Ysrihontw55 Goals GoalPatient Goal TypeAssociated ProblemsRecent ProgressPatient-Stated?Author Home Nicole Ramachandran LSW Note: Evaluation of progress towards goal: Safe dc transition from hospital to home with family support. Medical Devices Not on file Procedures Procedure NamePriorityDate/TimeAssociated DiagnosisCommentsXR HIP LT 2-3 VIEWS W OR WO CODJNBJHFU97/17/2025 9:28 AM EDT from Last 3 Months Results * X-ray hip left 2-3 views with or without pelvis (11/06/2024 9:28 AM EDT) Anatomical RegionLateralityModalityLower Extremities, MSK, HipLeftComputed RadiographySpecimen (Source)Anatomical Location / LateralityCollection Method / VolumeCollection TimeReceived Time11/06/2024 9:29 AM EDT Narrative 11/06/2024 9:33 AM EDT HISTORY AND/OR TECH NOTES Chronic left hip [...] Jamari Ken MD on 11/06/2024 9:33 AM Procedure Note Jamari Ken MD - 11/06/2024 HISTORY AND/OR TECH NOTES Chronic left hip pain PROCEDURE X-ray left hip and bony pelvis COMPARISON November 05 FINDINGS No fracture seen No dislocation seen There are chronic fracture deformities and irregularity at the rightgreater than left pubic bones and pubic symphysis Moderate to severe degenerative change at the hips with some bonehypertrophic change Significant vascular calcification Degenerative changes in the lumbar spine Pelvic phleboliths If continued pain and more detailed imaging needed, consider follow-upMRI IMPRESSION: No acute findings. Finalized by Jamari Ken MD on 11/06/2024 9:33 AM Authorizing ProviderResult TypeResult [facility] ORDERABLESFinal Result from Last 3 Months Insurance Advance Directives * Full Code (Latest Code Status on File) Date ActivatedDate InactivatedComments06/01/2023 4:59 PM06/02/2023 9:12 PM * Full Code Date ActivatedDate IhkanjkghlySdptmwzr97/20/2022 12:45 AM12/10/2021 4:05 PM * Full Code Date ActivatedDate CrbufxbzhikBovywjlo40/12/2022 4:41 PM10 3:21 PM Care Teams Team MemberRelationshipSpecialtyStart DateEnd Date [place] [address] [place] [address] [facility] - [facility]11/06/24
--- OUTSIDE RECORDS SUMMARY | 2024-12-18 13:24 | XMS_ITS | Clinical Summary ---
Author Organization [facility] Address [address] [facility] [place] [address] Phone Care Team Providers [facility] Director Name Role Phone Unavailable Primary Care Provider Unavailabl e Social History Tobacco UseTypesPacks/DayYears UsedDateSmoking Tobacco: Never AssessedSex and Gender InformationValueDate RecordedSex Assigned at BirthNot on fileLegal Sex Male01/15/2022 11:34 AM ESTGender IdentityNot on fileSexual OrientationNot on file Plan of Treatment Not on file
--- OUTSIDE RECORDS SUMMARY | 2024-12-18 13:31 | XMS_ITS | CCD ---
Author Organization [facility] Care Team Providers Care Puttier Name Role Phone NIKOLAI, DR ALY Attending Unavailable NIKOLAI, DR ALY Primary Care Unavailable NIKOLAI, DR ALY Admitting Unavailable Jermain Menchaca MD Primary Care Provider Jermain Menchaca MD Unavailable Jermain Menchaca MD Primary Care Provider [phone] KIERAN GAINES Attending Unavailable JERMAIN MENCHACA Primary Care Unavailable JERMAIN MENCHACA Attending Unavailable JERMAIN MENCHACA Attending Unavailable LITA SILVESTRE Attending Unavailable LITA SILVESTRE Referring Unavailable HEMCHATA ESPARZA Attending Unavailable JERMAIN MENCHACA Attending Unavailable HEMCHATA ESPARZA Attending Unavailable LITA SILVESTRE Attending Unavailable LITA SILVESTRE Referring Unavailable Junior LEDEZMA, Alberto Ansari Attending Unavailable Giirasema LEDEZMA, Alberto Ansari Attending Unavailable Giirasema LEDEZMA, Alberto Ansari Attending Unavailable Giirasema LEDEZMA, Andhussain Ansari Attending Unavailable Giirasema LEDEZMA, Andhussain Ansari Attending Unavailable Medications Current Medications MedicationDrug Class(es)DatesSig (Normalized)Sig (Original)acetaminophen 325 mg oral tablet (20 sources)take 1 tablet by mouth every six hours as needed for pain acetaminophen (Tylenol) 325 MG tablet Take 325 mg by mouth every 6 (six) hours if needed for mild pain. Activetake 1 tablet by mouth every six hours as needed for painacetaminophen (TYLENOL EXTRA STRENGTH) 500 mg tablet Take 1 tablet (500 mg total) by mouth every 6 (six) hours as needed for pain. Activeacetaminophen 325 mg / HYDROcodone bitartrate 5 mg oral tablet (20 sources)Opioid AgonistStart: 72-73-9532qfus 1 tablet by mouth every six hours as neededHYDROcodone-acetaminophen ([place]) 5-325 MG tablet Take 1 tablet by mouth every 6 (six) hours if needed 11/06/2023 Activeascorbic acid 226 mg / beta carotene 70578 unt / cuprous oxide 0.8 mg / dl-alpha tocopheryl knqdfbe190 unt / zinc oxide 34.8 mg oral capsule (1 source)Vitamin Ctake 1 capsule by mouth in the morningvitamins A,C,H-frai-hfpqtb (ICAPS AREDS) 14,320-226-200 grzx-fz-qsbh capsule Take 1 capsule by mouth in the morning. Activeaspirin 81 mg chewable tablet (1 source)Platelet Aggregation Inhibitor, Nonsteroidal Anti-inflammatory Drug Start: 58-68-0644cplzamh 81 mg chewable tablet Chew 1 tablet (81 mg total) and swallow in the morning. 30 tablet 1 06/03/2023 Activebaclofen 10 mg oral tablet (20 sources)gamma-Aminobutyric Acid-ergic AgonistStart: 07-77-3927hwpy 1 tablet by mouth twice daily as needed for muscle spasmsbaclofen (Lioresal) 10 MG tablet Indications: Cervicalgia Take 1 tablet (10 mg) by mouth 2 (two) times a day as needed for muscle spasms. 60 tablet 2 10/06/2022 ActiveBIOFLAVONOIDS, CITRUS ORAL (1 source)BIOFLAVONOIDS, CITRUS ORAL Take by mouth daily. Activeferrous sulfate 325 mg oral tablet (2 sources)take 1 tablet by mouth once dailyFerrous Sulfate (iron) 325 (65 Fe) MG tablet Take 65 mg by mouth Daily Activefinasteride 5 mg oral tablet (20 sources)5-alpha Reductase InhibitorStart: 60-30-2695wdcf 1 tablet by mouth in the morningfinasteride (Proscar) 5 MG tablet Take 5 mg by mouth in the morning. 07/15/2022 Activelevothyroxine sodium 0.1 mg oral tablet (20 sources)l-ThyroxineStart: 66-36-4776pdcc 1 tablet by mouth once daily levothyroxine (Synthroid, Levoxyl) 100 MCG tablet Indications: Hypothyroidism, unspecified TAKE 1 TABLET BY MOUTH DAILY *hold on sundays* 90 tablet 3 07/04/2024 ActiveStart: 96-61-9730pzcl 1 tablet by mouth once dailylevothyroxine (Synthroid, Levoxyl) 100 MCG tablet Indications: Hypothyroidism, unspecified (CMS/HCC) TAKE 1 TABLET BY MOUTH DAILY; hold on sundays 90 tablet 3 07/03/2023 Activetake 1 tablet by mouth in the morninglevothyroxine (SYNTHROID, LEVOTHROID) 100 MCG tablet Take 1 tablet (100 mcg total) by mouth in the morning. Active linaclotide 0.145 mg oral capsule (1 source)Guanylate Cyclase-C AgonistStart: 37-67-0633mkpv 1 capsule by mouth once daily before breakfastlinaCLOtide (LINZESS) 145 mcg capsule Take 1 capsule (145 mcg total) by mouth every morning before breakfast. 30 capsule 1 12/10/2021 Activelisinopril 10 mg oral tablet (20 sources)Angiotensin Converting Enzyme InhibitorStart: 84-54-2083qhsy 1 tablet by mouth once dailylisinopril 10 MG tablet Indications: Benign essential hypertension Take 1 tablet (10 mg) by mouth Daily 100 tablet 3 10/03/2024 Active Start: 31-14-9000cfri 1 tablet by mouth once dailylisinopril 10 MG tablet Indications: Benign essential hypertension (CMS/HCC) Take 1 tablet (10 mg) by mouth Daily 100 tablet 3 11/14/2023 ActiveStart: 28-19-3191txtt 1 tablet by mouth once dailylisinopril 10 MG tablet Indications: Benign essential hypertension (CMS/HCC) Take 1 tablet (10 mg) by mouth Daily 30 tablet 2 08/21/2023 Activelovastatin 20 mg oral tablet (20 sources)HMG-CoA Reductase InhibitorStart: 83-82-1534ersi 1 tablet by mouth at mealtimelovastatin (Mevacor) 20 MG tablet Indications: Pure hypercholesterolemia, unspecified Take 1 tablet(20 mg) by mouth in the evening. Take with meals 100 tablet 3 04/02/2024 ActiveStart: 17-83-4401lbje 1 tablet by mouth at dinnerlovastatin (Mevacor) 20 MG tablet Indications: Pure hypercholesterolemia, unspecified (CMS/HCC) TAKE 1 TABLET BY MOUTH with evening meal 100 tablet 3 04/12/2023 Activemeloxicam 15 mg oral tablet (20 sources)Nonsteroidal Anti-inflammatory DrugStart: 38-27-9238nabx 1 tablet by mouth at mealtimemeloxicam (Mobic) 15 MG tablet Indications: Primary osteoarthritis, right hand TAKE 1 TABLET BY MOUTH IN THE MORNING WITH FOOD 100 tablet 3 07/04/2024 ActiveStart: 40-56-0186ywal 1 tablet by mouth at mealtime meloxicam (Mobic) 15 MG tablet Indications: Primary osteoarthritis, right hand TAKE 1 TABLET BY MOUTH IN THE MORNING WITH FOOD 100 tablet 3 07/03/2023 Active methylPREDNISolone (5 sources)CorticosteroidStart: 12-19-2023 End: 68-20-3706rnrxkxZVSPOSPatuqb (Medrol Dospak) 4 MG tablets Indications: Left-sided low back pain with left-sided sciatica, unspecified chronicity Follow schedule on package instructions 21 tablet 12/19/2023 12/26/2023 Discontinued (Therapy completed)Start: 28-79-4386tozxcaIOPVWRQzfsli (Medrol Dospak) 4 MG tablets Indications: Left-sided low back pain with left-sided sciatica, unspecified chronicity Follow schedule on package instructions 21 tablet 12/19/2023 Activenaproxen 375 mg oral tablet (2 sources)Nonsteroidal Anti-inflammatory DrugStart: 11-06-2024 End: 63-23-8671atoo 1 tablet by mouth in the morningnaproxen (Naprosyn) 375 MG tablet Take 375 mg by mouth in the morning and 375 mg in the evening. Take with meals. 11/06/2024 11/19/2024 ActiveNutritional Supplements (PROSTA JENISE PO) (20 sources)Nutritional Supplements (PROSTA JENISE PO) Take by mouth 2 (two) times a day. Activetamsulosin hydrochloride 0.4 mg oral capsule (20 sources)alpha-Adrenergic BlockerStart: 74-54-3961vzxj 1 capsule by mouth once dailytamsulosin (Flomax) 0.4 MG 24 hr capsule Indications: Retention of urine, unspecified Take 1 capsule (0.4 mg) by mouth Daily 100 capsule 3 10/28/2024 ActiveStart: 01-01-2024 End: 27-72-8112oshn 1 capsule by mouth every twenty-four hours in the morning tamsulosin (Flomax) 0.4 MG 24 hr capsule Indications: Retention of urine, unspecified TAKE 1 CAPSULE BY MOUTH IN THE MORNING 100 capsule 3 01/01/2024 10/28/2024 Discontinued (Reorder)Start: 90-99-8510ieoa 1 capsule by mouth once dailytamsulosin (Flomax) 0.4 MG 24 hr capsule Indications: Retention of urine, unspecified Take 1 capsule (0.4 mg) by mouth Daily 100 capsule 3 10/30/2023 ActiveStart: 82-72-7813yqwi 1 capsule by mouth every twenty-four hours in the morningtamsulosin (Flomax) 0.4 MG 24 hr capsule Indications: Retention of urine, unspecified Take 1 capsule (0.4 mg) by mouth in the morning. 100 capsule 3 02/07/2023 ActiveStart: 34-00-1271gucx 1 capsule by mouth once dailytamsulosin (FLOMAX) 0.4 mg capsule Take 1 capsule (0.4 mg total) by mouth nightly. 30 capsule 1 12/10/2021 ActivetraMADol hydrochloride 50 mg oral tablet (13 sources)Opioid Agonisttake 1 tablet by mouth every six hours as needed for paintraMADol (Ultram) 50 MG tablet Take 50 mg by mouth every 6 (six) hours if needed for severe pain Activeubidecarenone 30 mg oral capsule (20 sources)co-enzyme Q-10 30 MG capsule Take 100 mg by mouth in the morning. Activetake 10 capsules by mouth once in the morningcoenzyme Q10 30 mg capsule Take 200 mg by mouth in the morning. Activevitamin B12 (2 sources)Vitamin F62zeku 1000 ug by mouth once dailyCyanocobalamin (VITAMIN B 12 PO) Take 1,000 mcg by mouth Daily ActiveWound Dressings (Medihoney wound/burn) gel (8 sources)Start: 91-31-0104Vzias Dressings (Medihoney wound/burn) gel Indications: Pressure ulcer of coccygeal region, stage 2(CMS/HCC) APPLY TO THE AFFECTED AREA(S) TOPICALLY DAILY FOR 14 DAYS 45 mL 2 12/26/2023 ActiveStart: 12-26-2023 End: 36-78-4382Bduuk Dressings (Medihoney wound/burn) gel Indications: Pressure ulcer of coccygeal region, stage 2(CMS/HCC) Apply 1 application topically Daily for 14 doses 44 mL 12/26/2023 01/09/2024 Active Problems Active Problems Problem ClassificationProblemDateDocumented DateEpisodic/ChronicAcute cerebrovascular disease (1 source)Cerebrovascular accident; Translations: [Cerebral infarction, unspecified]Onset: 560398-79-6621PsmldpuKtgyys and peripheral arterial embolism or thrombosis (20 sources)Arterial embolus and thrombosis; Translations: [Embolism and thrombosis of unspecified artery]Onset: 10-30-2023 Resolved: 901365-11-7279WnzdotlOwfisakbj and vision defects (20 sources)Blind right eye, normal vision left eye; Translations: [Blindness, one eye, unspecified eye]Onset: 035165-27-0548TgpyiwoIeoewoy kidney disease (20 sources)Chronic kidney disease stage 3B ; Translations: [Stage 3b chronic kidney disease (HCC)]Onset: 072181-37-2798ZqmlberTdlzynz ulcer of skin (4 sources)Pressure ulcer of sacral region, stage 2; Translations: [Pressure ulcer, lower back]40-13-6983XcvhmprArimizxqq of lipid metabolism (20 sources)Pure hypercholesterolemia; Translations: [Pure hypercholesterolemia, unspecified]Onset: 307708-33-2052CvmrgaiKyxjxbeul hypertension (20 sources)Benign essential hypertension; Translations: [Essential (primary) hypertension]Onset: 535864-39-7896NvkfwavTuaftrsvolnfz symptoms and ill- defined conditions (7 sources)Retention of urine, unspecified; Translations: [Acute retention of urine ]Onset: 47-25-2591VdenalobBdsmsilbwfk of prostate (5 sources)Benign prostatic hyperplasia; Translations: [Benign prostatic hyperplasia with lower urinary tract symptoms]Onset: 962748-10-0965Azfqhjg Immunizations and screening for infectious disease (2 sources)Vaccination needed; Translations: [Encounter for immunization] 50-99-9752LyaujegtDxhwmizvfvidgq (20 sources)Osteoarthritis of joint of left shoulder region; Translations: [Primary osteoarthritis, left shoulder]Onset: 271278-55-4697UaoxhrfUadmp connective tissue disease (20 sources)History of left shoulder arthroplasty; Translations: [Presence of left artificial shoulder joint]Onset: 307831-13-4356JvwogpbFdnwo connective tissue disease (20 sources)History of reverse prosthetic total arthroplasty of left shoulder; Translations: [Presence of left artificial shoulder joint]Onset: 10-04-2022 87-11-8768EglmufxPgccs fractures (8 sources)Fracture of multiple pubic rami; Translations: [Other specified fracture of right pubis, subsequentencounter for fracture with routine healing] 83-32-0430ExgmprwkHcfns fractures (6 sources)Closed fracture of medial wall of acetabulum; Translations: [Nondisplaced fracture of medial wall of left acetabulum, subsequent encounter for fracture with routine healing]51-50-8604XfomzxfbSlktn nervous system disorders (20 sources)Carpal tunnel syndrome of right wrist; Translations: [Carpal tunnel syndrome, right upper limb]Onset: 481581-82-4996GfhghktCgnav nervous system disorders (4 sources)Left-sided piriformis syndrome; 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, left lower limb]Onset: 420940-28-2815TkjhpdiOcbmf non-traumatic joint disorders (6 sources)Hip pain; Translations: [Pain in left hip]Onset: EpisodicSpondylosis; intervertebral disc disorders; other back problems (20 sources)Degeneration of lumbar intervertebral disc; Translations: [Degenerative disc disease, lumbar]Onset: 703650-23-1995HhzakouCubxqmf and strains (1 source)Strain of muscle, fascia and tendon of left hip, initial encounter; Translations: [Strain of muscle, fascia and tendon of left hip, initial encounter]Onset: 58-51-1699KwmfqlnuZdsqmdt disorders (20 sources)Hypothyroidism; Translations: [Hypothyroidism, unspecified]Onset: 033978-86-2712JcbyoqjLjenktifu cerebral ischemia (20 sources)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; Translations: [Transient cerebral ischemic attack, unspecified]Onset: 611311-86-3251Aqmlmik Past or Other Problems Problem ClassificationProblemDateDocumented DateEpisodic/ChronicAcute and unspecified renal failure (1 source)Acute renal failure syndrome; Translations: [Acute kidney failure, unspecified]Onset: 680581-19-4418KdscizyxWcmhymlmm and vision defects (1 source)Visual disturbance; Translations: [Unspecified visual disturbance] Onset: 644118-98-4023NiaaujhqRfdmk and electrolyte disorders (1 source)Hyponatremia; Translations: [Hypo-osmolality and hyponatremia]Onset: 533357-79-0802KrpybnkfVlexnff and fatigue (1 source)Asthenia; Translations: [Weakness]Onset: 644975-97-5861Wteijdgd Other connective tissue disease (20 sources)Tear of left rotator cuff; Translations: [Unspecified rotator cuff tear or rupture of left shoulder, not specified as traumatic]Onset: 10-04-2022 45-02-8292JsfjdfquAlwhv connective tissue disease (20 sources)Pain in hallux; Translations: [Pain in left toe(s)]Onset: 04-10-2023 55-14-5698RlxarwyzQpiuj diseases of kidney and ureters (5 sources)Disorder of urinary tract; Translations: [Other obstructive and reflux uropathy]Onset: 077162-03-8036XccvhdhzMdrvj gastrointestinal disorders (20 sources)Constipation; Translations: [Constipation, unspecified]Onset: 401946-67-5019WfoubxvaNiymc non-epithelial cancer of skin (20 sources)Basal cell carcinoma of face; Translations: [Basal cell carcinoma of skin of unspecified parts of face]Onset: 339178-98-2156WakthjrfTydmb nutritional; endocrine; and metabolic disorders (20 sources)H/O: thyroid disorder; Translations: [Personal history of other endocrine, nutritional and metabolic disease]Onset: 965906-03-0303Ifeulehw Phlebitis; thrombophlebitis and thromboembolism (10 sources)History of thromboembolism of vein; Translations: [Personal history of other venous thrombosis and embolism]Onset: 533781-03-3719Itlihgoc Residual codes; unclassified (20 sources)Family history of ischemic heart disease; Translations: [Family history of ischemic heart disease and other diseases of the circulatory system] Onset: 820215-63-7067SsvysthqBzoqvisyr and history of mental health and substance abuse codes (20 sources)Ex-smoker; Translations: [Personal history of nicotine dependence] Onset: 949907-46-0368ByyysuzdXmbj and subcutaneous tissue infections (20 sources)Paronychia of toe of left foot; Translations: [Cellulitis of left toe]Onset: 487273-95-7556YlogqolzShzxvpprqid; intervertebral disc disorders; other back problems (20 sources)Spinal stenosis of lumbar region; Translations: [Spinal stenosis, lumbar region without neurogenic claudication]Onset: 127781-74-4563 Episodic Results Test NameValueInterpretationReference RangeFacilityXR HIP LT 2-3 VIEWS W OR WO PELVISon 77-30-3109KX HIP LT 2-3 VIEWS W OR WO PELVISXR HIP LT 2-3 VIEWS W OR WO [...] by Jamari Ken MD on 11/06/2024 9:33 AMNormalProMedica [facility] (INCLUDES DIFF/PLT)on 05-83-9683Evkavxugh (Bld) [#/Vol]0.039 10*3/uL Normal0-200Quest DiagnosticsComment on above:Performed By: #### 60225, 5340 #### [facility] [address] [place] [address] Women'S Swim Coach: Naya Guerra #### 7600 #### [facility] [address], [address] [place] [address] Women'S Swim Coach: Iron Nicole MDBasophils/100 WBC (Bld)0.8 %NormalQuest DiagnosticsComment on above:Performed By: #### 80018, 6399 #### [facility] [address] [place] [address] Women'S Swim Coach: Naya Guerra #### 7600 #### [facility] [place] [address], [address] [place] [address] Women'S Swim Coach: Iron Nicole MDEosinophils (Bld) [#/Vol]0.23 10*3/uLNormal 15-500Quest DiagnosticsComment on above:Performed By: #### 24991, 6399 #### [facility] [address] [place] [address] Women'S Swim Coach: Naya Guerra #### 7600 #### [facility] [place] [address], [address] [place] [address] Women'S Swim Coach: Iron Nicole MDEosinophils/100 WBC (Bld)4.7 %NormalQuest DiagnosticsComment on above:Performed By: #### 29574, 6399 #### [facility] [address] [place] [address] Women'S Swim Coach: Naya Guerra #### 7600 #### [facility] [address], [address] [place] [address] Women'S Swim Coach: Iron Nicole MDErythrocyte distribution width (RBC) [Ratio] 12.8 %Ipvtqw69.0-15.0Quest DiagnosticsComment on above:Performed By: #### 31791, 6399 #### [facility] [address] [place] [address] Women'S Swim Coach: Naya Guerra #### 7600 #### [facility] [place] [address], [address] [place] [address] Women'S Swim Coach: Iron Nicole MDHematocrit (Bld) [Volume fraction]40.0 %Normal 38.5-50.0Quest DiagnosticsComment on above:Performed By: #### 90604, 6399 #### [facility] [address] [place], [place] [id number] Women'S Swim Coach: Naya Guerra #### 7600 #### [facility] [address], [address] [place] [address] Women'S Swim Coach: Iron Nicole MDHemoglobin (Bld) [Mass/Vol]13.1 g/dLLow 13.2-17.1Quest DiagnosticsComment on above:Performed By: #### 59399, 6399 #### [facility] [address] [place], [place] [id number] Women'S Swim Coach: Naya Guerra #### 7600 #### [facility] [address], [address] [place] [address] Women'S Swim Coach: Iron Nicole MDLymphocytes (Bld) [#/Vol]1.715 10*3/uLNormal 850-3900Quest DiagnosticsComment on above:Performed By: #### 23277, 6399 #### [facility] [address] [place] [address] Women'S Swim Coach: Naya Guerra #### 7600 #### [facility] [place] [address] Women'S Swim Coach: Iron Nicole MDLymphocytes/100 WBC (Bld)35.0 %NormalQuest DiagnosticsComment on above:Performed By: #### 99320, 6399 #### [facility] [address] [place], [place] [id number] Women'S Swim Coach: Naya Guerra #### 7600 #### [facility] [address], [address] [place] [address] Women'S Swim Coach: Iron Nicole MDMCH (RBC) [Entitic mass]31.7 pzSbrudh39.0-33.0 Quest DiagnosticsComment on above:Performed By: #### 46855, 6399 #### [facility] [address] [place] [address] Women'S Swim Coach: Naya Guerra #### 7600 #### [facility] [address], [address] [place] [address] Women'S Swim Coach: Iron Nicole MDMCHC (RBC) [Mass/Vol]32.8 g/rHBicrlg68.0-36.0 Quest DiagnosticsComment on above:Result Comment: For adults, a slight decrease in the calculated MCHC value (in the range of 30 to 32 g/dL) is most likely not clinically significant; however, it should be interpreted with caution in correlation with other red cell parameters and the patient's clinical condition.Performed By: #### 51519, 6399 #### [facility] [address] Women'S Swim Coach: Naya Guerra #### 7600 #### [facility] [place] [address], [address] [place] [address] Women'S Swim Coach: Iron Nicole MDMCV (RBC) [Entitic vol]96.9 zWValvbs27.0-100.0 Quest DiagnosticsComment on above:Performed By: #### 03927, 6399 #### [facility] [address] Women'S Swim Coach: Naya Guerra #### 7600 #### [facility] [place] [address], [address] [place] [address] Women'S Swim Coach: Iron Nicole MDMonocytes (Bld) [#/Vol]0.627 10*3/uLNormal 200-950Quest DiagnosticsComment on above:Performed By: #### 44783, 6399 #### [facility] [address] [place] [address] Women'S Swim Coach: Naya Guerra #### 7600 #### [facility] [address], [address] [place] [address] Women'S Swim Coach: Iron Nicole MDMonocytes/100 WBC (Bld)12.8 %NormalQuest DiagnosticsComment on above:Performed By: #### 33941, 6399 #### [facility] [address] [place] [address] Women'S Swim Coach: Naya Guerra #### 7600 #### [facility] [place] [address], [address] [place] [address] Women'S Swim Coach: Iron Nicole MDNeutrophils (Bld) [#/Vol]2.288 10*3/uLNormal 1500-7800Quest DiagnosticsComment on above:Performed By: #### 59375, 6399 #### [facility] [address] [place] [address] Women'S Swim Coach: Naya Guerra #### 7600 #### [facility] [place] [address] , [address] [place] [address] Women'S Swim Coach: Iron Nicole MDNeutrophils/100 WBC (Bld)46.7 %NormalQuest DiagnosticsComment on above:Performed By: #### 15781, 6399 #### [facility] [address] [place] [address] Women'S Swim Coach: Naya Guerra #### 7600 #### [facility] [place] [address] , [address] [place] [address] Women'S Swim Coach: Iron Nicole MDPlatelet mean volume (Bld) [Entitic vol]8.2 fL Normal7.5-12.5Quest DiagnosticsComment on above:Performed By: #### 16288, 6399 #### [facility] [address] [place], [place] [address] Women'S Swim Coach: Naya Guerra #### 7600 #### [facility] [address] , [address] [place] [address] Women'S Swim Coach: Iron Nicole MDPlatelets (Bld) [#/Vol]215 10*3/uLNormal 140-400Quest DiagnosticsComment on above:Performed By: #### 13015, 6399 #### [facility] [place] [address] Women'S Swim Coach: Naya Guerra #### 7600 #### [facility] [address] [place] [address], [address] [place] [address] Women'S Swim Coach: Iron Nicole [facility] ([facility]) [#/Vol]4.13 10*6/uLLow4.20-5.80Quest DiagnosticsComment on above:Performed By: #### 91248, 6399 #### [facility] [address] [place] [address] Women'S Swim Coach: Naya Guerra #### 7600 #### [facility] [address], [address] [place] [address] Women'S Swim Coach: Iron Nicole [facility] [#/Vol]4.9 10*3/uLNormal3.8-10.8 Quest DiagnosticsComment on above:Performed By: #### 12292, 6399 #### [facility] [address] [place] [address] Women'S Swim Coach: Naya Guerra #### 7600 #### [facility] [address], [address] [place] [address] Women'S Swim Coach: Iron Nicole MDCOMPREHENSIVE METABOLIC PANELon 10-31-2024 Albumin [Mass/Vol]4.3 g/dLNormal3.6-5.1Quest DiagnosticsComment on above: Performed By: #### 77306, 6399 #### [facility] [address] [place] [address] Women'S Swim Coach: Naya Guerra #### 7600 #### [facility] [address] [place] [address], [address] Women'S Swim Coach: Iron Nicole MDAlbumin/Globulin [Mass ratio]1.9 {ratio}Normal 1.0-2.5Quest DiagnosticsComment on above:Performed By: #### 76472, 6399 #### [facility] [address] [place], [place] [phone] Women'S Swim Coach: Naya Guerra #### 7600 #### [facility] [address], [address] [place] [address] Women'S Swim Coach: Iron Nicole MDALP [Catalytic activity/Vol]52 U/LWgcgkh53-170 Quest DiagnosticsComment on above:Performed By: #### 94473, 6399 #### [facility] [address] [place] [address] [phone] Women'S Swim Coach: Naya Guerra #### 7600 #### [facility] [address], [address] [place] [address] Women'S Swim Coach: Iron Nicole MDALT [Catalytic activity/Vol]17 U/LNormal9-46 [facility] DiagnosticsComment on above:Performed By: #### 42888, 6399 #### [facility] [address] [place], [place] [phone] Women'S Swim Coach: Naya Guerra #### 7600 #### [facility] [address], [address] [place] [address] Women'S Swim Coach: Iron Nicole MDAST [Catalytic activity/Vol]24 U/ZHrcfzx90-07 [facility] DiagnosticsComment on above:Performed By: #### 37412, 6399 #### [facility] [address] [place] [address] Women'S Swim Coach: Naya Guerra #### 7600 #### [facility] [address], [address] [place] [address] Women'S Swim Coach: Iron Nicole MDBilirubin [Mass/Vol]0.6 mg/dLNormal0.2-1.2 [facility] DiagnosticsComment on above:Performed By: #### 86718, 6399 #### [facility] [address] [place] [phone] Women'S Swim Coach: Naya Guerra #### 7600 #### [facility] [address], [address] [place] [address] Women'S Swim Coach: Iron Nicole MDBUN/CREATININE RATIOSEE NOTE:Normal6-22Quest DiagnosticsComment on above:Result Comment: Not Reported: BUN and Creatinine are within reference range.Performed By: #### 33333, 6399 #### [facility] [address] [place] [address] Women'S Swim Coach: Naya Guerra #### 7600 #### [facility] [address], [address] [place] [address] Women'S Swim Coach: Iron Nicole MDCalcium [Mass/Vol]9.2 mg/dLNormal8.6-10.3Quest DiagnosticsComment on above:Performed By: #### 64217, 6099 #### [facility] [address] [place] [address] Women'S Swim Coach: Naya Guerra #### 7600 #### [facility] [address], [address] [place] [address] Women'S Swim Coach: Iron Nicole MDChloride [Moles/Vol]100 mmol/UMqpywa93-566 [facility] DiagnosticsComment on above:Performed By: #### 91852, 6399 #### [facility] [address] [place] [address] Women'S Swim Coach: Naya Guerra #### 7600 #### [facility] [place] [address] [address] , [address] [place] [address] Women'S Swim Coach: Iron Nicole MDCO2 [Moles/Vol]29 mmol/ASmrlev62-53Typnp DiagnosticsComment on above:Performed By: #### 58503, 6399 #### [facility] [address] [place] [address] Women'S Swim Coach: Naya Guerra #### 7600 #### [facility] [address], [address] [place] [address] Women'S Swim Coach: Iron MORINreatinine [Mass/Vol]1.17 mg/dLNormal0.70-1.22 [facility]osticsComment on above:Performed By: #### 10536, 6399 #### [facility] [address] [place] [address] Women'S Swim Coach: Naya Guerra #### 7600 #### [facility] [address], [address] [place] [address] Women'S Swim Coach: Iron Nicole MDGFR/1.73 sq M.predicted among non-blacks MDRD (S/P/Bld) [Vol rate/Area]60 mL/min/{1.73_m2}Normal> OR = 60[facility] Comment on above:Performed By: #### 27401, 6399 #### [facility] [address] [place] [address] Women'S Swim Coach: Naya Guerra #### 7600 #### [facility] [address], [address] [place] [address] Women'S Swim Coach: Iron Nicole MDGlobulin (S) [Mass/Vol]2.3 g/dLNormal1.9-3.7 [facility] DiagnosticsComment on above:Performed By: #### 80316, 6399 #### [facility] [address] [place] [address] Women'S Swim Coach: Naya Guerra #### 7600 #### [facility] [address], [address] [place] [address] Women'S Swim Coach: Iron Nicole MDGlucose [Mass/Vol]97 mg/bBVhjgkd51-80Pvjdu DiagnosticsComment on above:Result Comment: Fasting reference intervalPerformed By: #### 33913, 6399 #### [facility] [address] [place] [address] Women'S Swim Coach: Naya Guerra #### 7600 #### [facility] of [address], [address] [place] [address] Women'S Swim Coach: Iron Nicole MDPotassium [Moles/Vol]4.9 mmol/LNormal3.5-5.3 [facility]osticsComment on above:Performed By: #### 18137, 6399 #### [facility] [address] Women'S Swim Coach: Naya Guerra #### 7600 #### [facility] [address], [address] [place] [address] Women'S Swim Coach: Iron Nicole MDProtein [Mass/Vol]6.6 g/dLNormal6.1-8.1Quest DiagnosticsComment on above:Performed By: #### 22241, 6399 #### [facility] [address] Women'S Swim Coach: Naya Guerra #### 7600 #### [facility] [address], [address] [place] [address] Women'S Swim Coach: Iron Nicole MDSodium [Moles/Vol]135 mmol/RPjqyvt747-895Xxkgl DiagnosticsComment on above:Performed By: #### 79293, 6399 #### [facility] [address] [place] [address] Women'S Swim Coach: Naya Guerra #### 7600 #### [facility] [address], [address] [place] [address] Women'S Swim Coach: Iron Nicole MDUrea nitrogen [Mass/Vol]21 mg/dLNormal7-25 [facility] DiagnosticsComment on above:Performed By: #### 25131, 6399 #### [facility] [address] [place] [address] Women'S Swim Coach: Naya Guerra #### 7600 #### [facility] [address], [address] [place] [address] Women'S Swim Coach: Iorn Merati MDLIPID PANEL, STANDARD 47-10-3893Hdqsjeaghox [Mass/Vol]158 mg/dLNormal<200Quest DiagnosticsComment on above:Order Comment: FASTING:YES FASTING: YESPerformed By: #### 44455, 6399 #### [facility] [address] [place] [phone] Women'S Swim Coach: Naya Guerra #### 7600 #### [facility] [address], [address] [place] [address] Women'S Swim Coach: Iron MORINholesterol in HDL [Mass/Vol]45 mg/dLNormal> OR = 40Quest DiagnosticsComment on above:Order Comment: FASTING:YES FASTING: YESPerformed By: #### 83667, 6399 #### [facility] [address] [place] [address] Women'S Swim Coach: Naya Guerra #### 7600 #### [facility] [address], [address] [place] [address] Women'S Swim Coach: Iron MORINholesterol in LDL [Mass/Vol]94 mg/dLNormal [facility]osticsComment on above:Order Comment: FASTING:YES FASTING: YESResult Comment: Reference range: <100 Desirable range <100 mg/dL for primary prevention; <70 mg/dL for patients with CHD or diabetic patients with > or = 2 CHD risk factors. LDL-C is now calculated using the Robert calculation, which is a validated novel method providing better accuracy than the Friedewald equation in the estimation of LDL-C. Jaycob SHEPPARD et al. SUSAN. 2013;310(19): 7152-4494 (http://education.MarkaVIP.Principle Power/faq/PXB155)Performed By: #### 89500, 6399 #### [facility] [address] [place] [phone] Women'S Swim Coach: Naya Guerra #### 7600 #### [facility] [address], [address] [place] [address] Women'S Swim Coach: Iron MORINholesterol.total/Cholesterol in HDL [Mass ratio]3.5 {ratio}Normal<5.0Quest DiagnosticsComment on above:Order Comment: FASTING:YES FASTING: YESPerformed By: #### 57711, 6399 #### [facility] [address] [place] [address] Women'S Swim Coach: Naya Guerra #### 7600 #### [facility] [address] [facility], [address] [place] [address] Women'S Swim Coach: Iron GRAVES HDL KURSVSRCEYE086 mg/dL (calc)Normal<130 [facility]osticsComment on above:Order Comment: FASTING:YES FASTING: YESResult Comment: For patients with diabetes plus 1 major ASCVD risk factor, treating to a non-HDL-C goal of <100 mg/dL (LDL-C of <70 mg/dL) is considered a therapeutic option.Performed By: #### 52651, 99 #### [facility] [address] [place] [address] Women'S Swim Coach: Naya Guerra #### 7600 #### [facility] [address], [address] [place] [address] Women'S Swim Coach: Iron Nicole MDTriglyceride [Mass/Vol]99 mg/dLNormal<150Quest DiagnosticsComment on above:Order Comment: FASTING:YES FASTING: YESPerformed By: #### 27497, 4299 #### [facility] [address] [place] [address] Women'S Swim Coach: Naya Guerra #### 7600 #### [facility] [address], [address] [place] [address] Women'S Swim Coach: Iron Nicole MDXR Pelvis 1 or 2 Viewson 91-06-0991Twgrkgw Result: 01/16/2024 AP pelvis demonstrate well healing healing right pubic rami fracture and healing left acetabulum fracture in acceptable alignment with increased callus formation. No signs of displacement. Impression: Healing right pubic rami and left acetabulum fracture. Lita Silvestre [facility] HospitalRadiology Study observation (narrative)[facility] SystemXR Pelvis 1 or 2 Viewson 70-61-5732Ccqckcc Result: 12/19/2023 AP pelvis demonstrate healing right pubic rami fracture and healing left acetabulum fracture in acceptable alignment with increased callus formation. No definitive union of right pubic rami fracture. No signs of displacement. Impression: Healing right pubic rami and left acetabulum fracture. Lita Silvestre [facility] SystemXR Pelvis 1 or 2 ViewsOrdered By: Enrique Rutherford on 12-21-2023 [facility] Work Phone: XR Pelvis 1 or 2 Viewson 10-87-9092Gqvsyibeo Study observation (narrative)[facility] SystemXR Pelvis 1 or 2 Viewson 18-10-0596Euztvzq Result: 11/23/2023 AP pelvis demonstrated stable right pubic rami fracture and healing left acetabulum fracture in acceptable alignment. No signs of displacement Impression: Stable right pubic rami and left acetabulum fracture. Lita Silvestre [facility] CenterXR Pelvis 1 or 2 ViewsOrdered By: Enrique Rutherford on 41-01-1409[facility] Work Phone: XR Pelvis 1 or 2 Viewson 59-88-9778Sirmtadfd Study observation (narrative)[facility] SystemProvider Orderson 74-60-9744Ewtepdup [id number]#1.00OTGTHenry County HospitalConsent Formson 40-19-3152Wuwxikg Forms [id number]#1.00OTGTHenry County HospitalMAGR Preoperative Recordon 40-80-5662BLTO Preoperative RecordMAGR Pre-Op Record Summary Primary Physician: Enrique Rutherford DO Finalized Date/Time: 07/02/21 15:05:59 Pt. Name: ENRIQUE MIKE/Sex: 1935 MALE Med Rec #: [id number] Physician: Enrique Rutherford DO Financial #: [id number] Pt. Type: O Room/Bed: [facility]/1 Admit/Disch: 06/21/21 05:54:00 - 06/22/21 12:10:00 Institution: [...] ready for surgery. The patient remains free froms/s of injury. Patient/family express understanding of plan of care and participate in decisions affectinghis or her perioperrative plan of care. Allergies documented appropriately. Patient identifiers and consent correct. General Comments: Reviewed for the next 24 hours not to do anything that requires concentration. Denies chest pain, shortness of breath or illnessess. Denies pacemaker/defib. Denies sleep apnea. Finalized By: Isabela Soliman RN Document Signatures Signed By: Isabela Soliman RN 07/02/21 15:05[facility] CampusCoding Summaryon 17-17-0858Tdjwrm SummaryHTMLBase 64 WzbhugsgZOd1jUu+PGhlYWQ+CW0FXZJjX90zbMTgpG9BS3ePJL1HTOATPFZFLQ3DBF0qhZU5TYcvH3Gy biAv [file] OiB (more content not included)...[facility] CampusConsent Formson 50-84-4997Nuiqqao [id number]#1.00OTGTFulton County Health CenterDischarge Instructionson 32-53-8588Aoemcfbvn Instructions [id number]#1.00OTBluffton Hospital Telemetry Stripson 82-59-5374Iuuuyzixi Strips [id number]#1.00OTGTIFFSumma Health [facility]ron Campus Consultation/Specialist Noteon 98-91-2778Qzvdzimisxdk/Specialist NotePatient: ENRIQUE MIKE Age: 85 years Sex: MALE [...] BIB [facility] [Verified on: 06/22/2021 07:09 EDT] [facility] CenterIn[facility] Patient Summaryon 06-22-2021 [place]patient [place] [address] Patient Discharge Instructions Name: ENRIQUE MIKE : 1935 Patient Address: [address] [place] [address] Primary Care Provider: Name: JERMAIN MENCHACA MD After you are discharged if you find you have any questions, please, call [phone] ext [phone] to speak to a nurse. Discharge Diagnosis: Osteoarthritis of left shoulder; Other specific arthropathies, not elsewhere classified, left shoulder; Rotator cuff tear arthropathy of left shoulder Prescription Information: If you have been given a prescription for narcotics, seek immediate medical attention if you have any difficulty breathing or any sudden status changes such as confusion andsleepiness. If you or anyone you know is experiencing suicidal thoughts, mental health, alcohol and/or drug addiction problems; contact the [facility] 12/09 Crisis Hotline -Text 4HQPJ to 497401. If you received any narcotics, sedation, or [...] business decisions or sign any legal documents [facility] would like to thank you for allowing us to assist you with your healthcare needs.The following includes patient education materials and information regarding your injury/illness. ENRIQUE MIKE has been given the following list of follow-up instructions, prescriptions, and patient education materials: Follow-up Instructions With: Address: When: Enrique Rutherford [address] [place] [address], [address] [place] [phone] Business (1) 06/29/2021 10:45 AM Medications During [...] this list. Medication mariana (more content not included)...[facility] Postoperative Recordon [id number] Postoperative RecordMA Phase II Record Summary Primary Physician: Enrique Rutherford DO Finalized Date/Time: 06/22/21 07:37:50 Pt. Name: ENRQIUE MIKE./Sex: 1935 MALE Med Rec #: [id number] Physician: Enrique Rutherford DO Financial #: [id number] Pt. Type: O Room/Bed: [facility]/ Admit/Disch: 06/21/21 05:54:00 - Institution: Phase II Case Times MAGR Pre-Care Text: Patient is free from s/s of injury. Patient remains free from compromised physical state related tosurgery or anesthesia. Patient comfort maintained. Patient/family verbalize [...] Signatures Signed By: Karla Moss RN 06/22/21 07:37NoWadsworth-Rittman Hospitaless Note - Nurseon 02-18-3193Rxkrpmxj Note - NursePt discharged to home. Taken to awaiting car via wheelchair. Belongings sent with pt. [Electronically Signed on: 10/06/2021 14:53 EDT] Emily Kennedy RN [Verified on: 10/06/2021 14:53 EDT] Emily Kennedy RNFlower Hospital Note - NurseSurgical dressing removed. Steri strips intact. small dried blood scattered down incision line. Small amount of bloody drainage noted to distal incision site. Incision cleansed with NS and 4x4 gauze.Sterile 4x4 gauze placed over distal incision site. Entire incision site then covered with ABD padsand secured with compression foam tape. Daughter and verbalized understanding of dressing change procedure. [Electronically Signed on: 10/06/2021 14:53 EDT] Emily Kennedy RN [Verified on: 10/06/2021 14:53 EDT] Emily Kennedy [facility] Note - NurseShoulder block wearing off. Pt able to move his wrist and forearm. unable to wiggle fingers but tactile sensation intact. Circ checks WDL. Pain level 4/10. 5mg Oxycodone given. [Electronically Signed on: 10/06/2021 14:53 EDT] Emily Kennedy RN [Verified on: 10/06/2021 14:53 EDT] Emily Kennedy RNSt. Vincent Hospitala Noteon 54-16-6561Zepqwdidpx NotePatient: ENRIQUE MIKE Age: 85 years Sex: MALE [...] of LESVIA. Potential risks and mitigating factors werediscussed with the patient who expresses understanding.. No Complaint of nausea and vomiting. Plan Transfer/ Discharge: Patient can be discharged from PACU when criteria met. Condition stable. [Electronically Signed on: 06/21/2021 11:47 EDT] Rod Ann DO [Verified on: 06/21/2021 11:47 EDT] Rod Ann [facility] Hospitalthe[facility] NotePatient: ENRIQUE MIKE Age: 85 years Sex: MALE [...] = 50 mL, 100 mL/hr, IV Piggyback, Medical Billing Manager LR 1,000 mL: 20 mL/hr, IV Lidocaine 1% injectable solution: 0.1 mL, ID, Once, PRN: Other (see comment) tranexamic acid: 1,000 mg = 100 mL, 300 mL/hr, IV Piggyback, Medical Billing Manager tranexamic acid: 1,000 mg = 100 mL, 300 mL/hr, IV Piggyback, Medical Billing Manager Documented Medications Documented Aspir-Low 81 mg oral [...] (basal cell carcinoma), face / SNOMED CT 8426821928 / Confirmed Hypertension / SNOMED CT 0043890835 / Confirmed, Active Problems (2) BCC (basal cell carcinoma), face Hypertension Histories Family History: Entire family history is negative. 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 Back fusion (690206236). Chest tube insertion (TIJCJWXgq2q23oGla2jzyj). Comments: 06/04/2021 9:17 EDT - Elvi Barber RN left lung 1998 Inguinal hernia ([id number]). Rotator cuff (73916812). Hammer toe (476949245). Social History Electronic Cigarette/Vaping Assessment Electronic Cigarette [...] / Management Results review ECG interpretation Plan [place] [employer] Anesthesiologists#(ASA) physical status classification: Class II. Anesthetic Preoperative Plan Anesthesia: General. , Regional Interscalene Block. Anesthetic plan, risks, benefits, and alternatives discussed with the patient and/or family. Risks discussed: GA + PNB. Patient verbalized understanding. Informed consent was given. Consent was signed by the patient. Anesthetic technique: General anesthesia, Regional a nesthesia. [Electronically Signed on: 06/21/2021 07:57 EDT] Rod Ann DO [Verified on: 06/21/2021 07:57 EDT] Rod Ann [facility] Intraoperative Recordon [id number] Intraoperative RecordMAGR Intra-Op Record Summary Primary Physician: Enrique Rutherford DO Finalized Date/Time: 06/21/21 09:51:01 Pt. Name: ENRIQUE MIKE D.O.B./Sex: 1935 MALE Med Rec #: [id number] Physician: Enrique Rutherford DO Financial #: [id number] Pt. Type: D Room/Bed: [facility] Admit/Disch: 06/21/21 05:54:00 - Institution: Case [...] Case Attendee Enrique Rutherford Jacquelyn RN McMurray GENERATOR WORKER/Eliel KILGORE CST Role Performed Surgeon - Primary Moss Bleacher Crime Specialist Time In 06/21/21 07:28:00 06/21/21 07:28:00 06/21/21 07:28:00 Time Out 06/21/21 09:16:00 06/21/21 09:43:00 06/21/21 09:16:00 Procedure Arthroplasty Shoulder Arthroplasty Shoulder Arthroplasty Shoulder Total Reverse(Left) Total Reverse(Left) Total Reverse(Left) Last Modified By: Brenda Constantino RN, Jacquelyn RN Burns, Jacquelyn RN 06/21/21 09:43:07 06/21/21 09:43:07 06/21/21 09:43:07 Entry 4 Entry 5 Entry 6 Case Attendee Vivian NewmanA DanielYolis de la rosa CST, Christopher J DO GENERATOR WORKER Role Performed Crime Specialist Scrub Personnel Anesthesiologist of Record Time In [...] Performs skin preparation Im.270.1 Implements protective measures toprevent skin and tissue injury due to chemical sources Entry 1 Ski (more content not included)...[facility] Intraoperative RecordMAGR Intra-Op Record Summary Primary Physician: Finalized Date/Time: 06/21/21 07:33:10 Pt. Name: ENRIQUE MIKE/Sex: 1935 MALE Med Rec #: [id number] Physician: Enrique Rutherford DO Financial #: [id number] Pt. Type: D Room/Bed: / Admit/Disch: 06/21/21 [...] Klaehn, Margaret RN Role Performed Anesthesiologist of Moss Bleacher Moss Bleacher Record Time In 06/21/21 07:09:00 06/21/21 07:09:00 [...] Performs skin preparation Im.270.1 Implements protective measures toprevent skin and tissue injury due to chemical [...] Nasal cannula Flow Ra (more content not included)...[facility] PACU Recordon [id number] [facility]U RecordBARROW [facility] PAC[facility] Record Summary Primary Physician: Enrique Rutherford DO Finalized Date/Time: 06/21/21 10:37:04 Pt. Name: ENRIQUE MIKE./Sex: 1935 MALE Med Rec #: [id number] Physician: Enrique Rutherford DO Financial #: [id number] Pt. Type: D Room/Bed: [facility]/ Admit/Disch: 06/21/21 05:54:00 - Institution: PACU Case Times MAGR Entry 1 In PACU I 06/21/21 09:43:00 Discharge from PACU 06/21/21 10:28:00 I Last Modified By: Isabela Soliman RN 06/21/21 10:36:28 General Comments: Pt awake and oriented. VS stable. Transferred to room 221 via bed. Finalized By: Isabela Soliman RN Document Signatures Signed By: Isabela Soliman RN 06/21/21 10:37[facility] CampusNutrition Noteon 41-36-7158Hlhlsqrhz NotePt admitted for scheduled Lt shoulder surgery. Diet already advanced to a Regular, ate 100% of lunch, No wt hx available, denied any wt changes on transportation program director assessment. 06/04 pre-op labs reviewed, mildly elevated BUN noted. Pt at high nutrition risk r/t age greater than 65yr, however, no foreseeable nutrition concerns at this time. To follow.[facility] Operative Report - Surgeon/Physicianon [id number] Report - Surgeon/PhysicianPreoperative diagnosis: Left rotator cuff tear arthropathy Postoperative [...] in the beachchair position I then did aprovisional prep with isopropyl alcohol this was allowed to dry completely and then a Betadine prepwas performed. The shoulder was draped in usual fashion. An anterior incision was made utilizing the deltopectoral approach the cephalic vein was identified it was mobilized medially with the pectoralis. The deltoid was released the small portion of the proximal pectoralis was released about 1/2 cmthe biceps tendon was identified and even in its groove and distally it had a degenerative appearance so rather than tenodesed I elected to released. The biceps tendon was released. The subscapulariswas torn and retracted. I opened the capsule [...] [Verified on: 06/21/2021 10:15 EDT] Enrique [facility]utherford [facility] HospitalPatient Handouton 06-21-2021 Patient HandoutDRTom [facility] [employer] SHOULD[employer] INSTRUCTIONS SURGEONS WRITTEN [...] or concerns, please call the office at [phone] -Follow up as scheduledSumma Health Akron CampusProgress Note - Nurseon 06-21-2021 Progress Note - Nursereports no pain, numbness/tingling to left hand/arm, arm warm, palpable radial pulse, patient reports unable to squeeze fingers, ice continues to left shoulder, dressing clean and dry, oob up to bathroom to void, alert/orient, teds on, will continue to monitor. [Electronically Signed on: 06/21/2021 14:30 EDT] Phyllis Kasper RN [Verified on: 06/21/2021 14:30 EDT] Phyllis Kasper RNSumma Health Akron CampusXR Shoulder 1 View Lefton 72-42-2423AT Shoulder 1 View LeftEXAM: XR Shoulder 1 View Left HISTORY: Status post Shoulder Replacement COMPARISON: None. TECHNIQUE: Single view FINDINGS: Normal alignment and unremarkable early postoperative appearance left shoulder arthroplasty. IMPRESSION: As above. Final Dictated by: Eliel Garvey V Dictated DT/TM: 06/21/21 4:52 Signed (Electronic Signature): Eliel Garvey V 06/21/21 4:54 pm Technologist: EMMANUELOhioHealth Nelsonville Health CenterComment on above:Order Comment: default status post shoulder replacementCoding Summaryon 72-84-5421Vxklqy SummaryHTMLBase 64 TojeivdsBKm9lWt+PGhlYWQ+[id number]beB3Pf biAv [file] ZTs (more content not included)...[facility] CampusProgress Note - Nurseon 93-95-9876Unlxrtuy Note - NursePre-op call done, instructed to arrive @ 0600 on 06-21-21, NPO after midnight-verbalized understanding. [Electronically Signed on: 06/18/2021 09:26 EDT] Ayah Gracia RN [Verified on: 06/18/2021 09:26 EDT] Ayah Gracia RNNoOhioHealth Grady Memorial Hospital2019 Novel Coronavirus (CoVID-19), BART on 24-03-1489CFER-CoV-2 (COVID-19) RNA BART+probe Ql (Unsp spec)Not detected Invalid Interpretation CodeNot [facility], IncComment on above:Order Comment: [id number] Sgzvtc Comment: This nucleic acid amplification test was developed and its performance characteristics determined by [employer]. Nucleic acid amplification tests include RT- PCR [...] detected) result in this assay. Performed At: [address] [id number] Suzanne Durham PhD Ph:[phone] By: #### [id number] #### [facility] (DEFAULT) [address] [place] [address] 36491Jalvkfb Directive Documentson 75-91-6486Qabkxlq Directive [id number]#1.00OTGTIFFSumma Health Akron CampusCoding Summaryon 48-84-4527Oolmni SummaryHTMLBase 64 YxftlhlrDWg2oSa+PGhlYWQ+VO7JPIKwH54okTUpjQ1XA3yHRG1PZJUQPFLQGA0MXR5zbKY1VXjyL4Sp biAv [file] ZTs (more content not included)...[facility] CampusProgress Note - Nurseon 29-31-2901Wxueviiq Note - NurseChart reviewed by Dr. Garcia and no new orders received. [Electronically Signed on: 06/07/2021 15:13 EDT] Isabela Soliman RN [Verified on: 06/07/2021 15:13 EDT] Isabela Soliman RN ANoOhioHealth Grady Memorial HospitalProvider Orderson 06-07-2021 Provider [id number]#1.00OTGTIFFNormal [facility] MRSA Screenon 06-05-2021 MRSA ScreenNegativeSumma Health Akron CampusComment on above:Performed By: #### [id number] ####[facility] (DEFAULT)[address] [place] [address] 94250.Auto Diff 1on 57-58-6352Buol [place] %13 %High1-12[facility] HospitalComment on above:Performed By: #### [id number], [id number], [id number] ####[facility] (DEFAULT)[address] [place] [address] 38555Gfmh Abs#0.0 b71Kewhmi0.0-0.2[facility] Hospital Comment on above:Performed By: #### [id number], [id number], [id number] ####[facility] (DEFAULT)[address] [place] [address] 09024Brhdahrgz/100 WBC (Bld) 0.8 %Normal0.2-2.0[facility] HospitalComment on above:Performed By: #### [id number], [id number], [id number] ####[facility] (DEFAULT)[address] [place] [address] 91758Edl Abs#0.[address] h06Irkwrb8.0-0.4[facility] HospitalComment on above:Performed By: #### [id number], [id number], [id number] ####[facility] (DEFAULT)[address] [place] [address] 06955Yndyswaexsq/100 WBC (Bld)2.3 % Normal0.9-4.0[facility] HospitalComment on above:Performed By: #### [id number], [id number], [id number] ####[facility] (DEFAULT)[address] [place] [address] 01015Cktaj Abs#1.4 g58Kwdybu8.3-2.9[facility] HospitalComment on above: Performed By: #### [id number], [id number], [id number] ####[facility] (DEFAULT)[address] [place] [address] 16006Fzqfbxacbei/100 WBC (Bld)28 % Cbmrvk51-30Qxtzstnn HospitalComment on above:Performed By: #### [id number], [id number], [id number] ####[facility] (DEFAULT)[address] [place] [address] 86003Ynlr Abs#0.6 w99Xzqrcy6.0-0.8[facility] HospitalComment on above:Performed By: #### [id number], [id number], [id number] ####[facility] (DEFAULT)[address] [place] [address] 41383Opfq Abs#2.7 q98Pftjmy1.5-9.2[facility] Comment on above:Performed By: #### [id number], [id number], [id number] ####[facility] (DEFAULT)[address] [place] [address] 32622Nsmnewifyuq/100 WBC (Bld)55 %Jtuqaf19-56Wdvmrvjp HospitalComment on above:Performed By: #### [id number], [id number], [id number] ####[facility] (DEFAULT)[address] [place] [address] 14123VST Standardon 91-16-1673aHQS Non AA58 mL/min/1.73m2 Invalid Interpretation [facility] HospitalComment on above:Performed By: #### [id number], [id number], [id number] ####[facility] (DEFAULT)[address] [place] [address] 35348mROI AA>60Invalid Interpretation [facility] HospitalComment on above:Result Comment: Chronic Kidney disease could be indicated at eGFRs of less than 60 ml/min/1.73m2. Kidney Failure is indicated at less than 15 ml/min/1.12s3Pwicdupgf By: #### [id number], [id number], [id number] ####[facility] (DEFAULT)[address] [place] [address] 17929Nkmxc gap [Moles/Vol]18.0 mmol/LNormal5.0-19.0[facility] HospitalComment on above:Performed By: #### [id number], [id number], [id number] ####[facility] (DEFAULT)[address] [place] [address] 95617Utcztkq [Mass/Vol]9.8 mg/dLNormal8.9-10.3[facility] HospitalComment on above:Performed By: #### [id number], [id number], [id number] ####[facility] (DEFAULT)[address] [place] [address] 52761Wljifcpe [Moles/Vol]96 mmol/OHnv888-466Rtjvdgkp HospitalComment on above:Performed By: #### [id number], [id number], [id number] ####[facility] (DEFAULT)[address] [place] [address] 25964RC6 [Moles/Vol]27 mmol/CEqhujj04-52Ulfivjzc Hospital Comment on above:Performed By: #### [id number], [id number], [id number] ####[facility] (DEFAULT)[address] [place] [address] 08391Ctwwmpgviy [Mass/Vol] 1.19 mg/dLNormal0.90-1.30[facility] HospitalComment on above:Performed By: #### [id number], [id number], [id number] ####[facility] (DEFAULT)[address] [place] [address] 49929Vcpsioq [Mass/Vol]93.0 mg/lCDfdnkm86.0-118.0[facility] HospitalComment on above:Performed By: #### [id number], [id number], 7409992 ####[facility] (DEFAULT)[address] [place] [address] 15221Jtspxekfgt 277 mOsm/LInvalid Interpretation CodeSt. Elizabeth Hospital HospitalComment on above:Performed By: #### [id number], [id number], [id number] ####[facility] (DEFAULT)[address] [place] [address] 55122Hwivfyqzi [Moles/Vol]4.5 mmol/LNormal3.6-5.1 [facility] HospitalComment on above:Performed By: #### [id number], [id number], [id number] ####[facility] (DEFAULT)[address] [place] [address] 17071 Sodium [Moles/Vol]136.0 mmol/VEunlgk905.0-144.0[facility] HospitalComment on above:Performed By: #### [id number], [id number], [id number] ####[facility] (DEFAULT)[address] [place] [address] 69861Zmdl nitrogen [Mass/Vol]27 mg/dL High8-26[facility] HospitalComment on above:Performed By: #### [id number], [id number], [id number] ####[facility] (DEFAULT)[address] [place] [address] 90557Hdgq nitrogen/Creatinine [Mass ratio]23.0 mg/mgHigh4.6-16.2[facility] HospitalComment on above:Performed By: #### [id number], [id number], [id number] ####[facility] (DEFAULT)[address] [place] [address] 93695NQJ w/ Auto Diffon 69-33-1100Jhaqzcvetqr distribution width (RBC) [Ratio]12.4 %Normal 11.5-15.0[facility] SystemComment on above:Performed By: #### [id number], [id number], [id number] #### [facility] (DEFAULT) [address] [place] [address] 16608Mrgadbwcom (Bld) [Volume fraction]45.9 %Qftwjv57.8-51.9 [facility] SystemComment on above:Performed By: #### [id number], [id number], [id number] #### [facility] (DEFAULT) [address] [place] [address] 70175Aovauwjxrs (Bld) [Mass/Vol]14.8 g/vXQpgxwa23.8-17.7 [facility] SystemComment on above:Performed By: #### [id number], [id number], [id number] #### [facility] (DEFAULT) [address] [place] [address] 31852Rqumk WBC4.8 p89Pskwksi Interpretation CodeMount Carmel Health SystemComment on above:Performed By: #### [id number], [id number], [id number] #### [facility] (DEFAULT) [address] [place] [address] 40991Opt Diff?AutoNormalMount Carmel Health SystemComment on above: Performed By: #### [id number], [id number], [id number] #### [facility] (DEFAULT) [address] [place] [address] 15171PZT (RBC) [Entitic mass]32 sbBlmzcq10-75[facility] Comment on above:Performed By: #### [id number], [id number], [id number] #### [facility] (DEFAULT) [address] [place] [address] 17454VVKK (RBC) [Mass/Vol]32 g/mUSefsap46-91Nfporlgq Hospital Comment on above:Performed By: #### [id number], [id number], [id number] #### [facility] (DEFAULT) [address] [place] [address] 85881AUD (RBC) [Entitic vol]98 cHZvcwxb43-303Ifuzdeaq Hospital Comment on above:Performed By: #### [id number], [id number], [id number] #### [facility] (DEFAULT) [address] [place] [address] 99068Odlfvxal604 n34Dntumb755-498Dcjgetuc HospitalComment on above:Performed By: #### [id number], [id number], [id number] #### [facility] (DEFAULT) [address] [place] [address] 18982Trpvjucp mean volume (Bld) [Entitic vol]8.6 fLNormal 6.3-10.2[facility] HospitalComment on above:Performed By: #### [id number], [id number], [id number] #### [facility] (DEFAULT) [address] [place] [address] 75060YPI5.68 e29Zxndgz5.70-5.30[facility] HospitalComment on above:Performed By: #### [id number], [id number], [id number] #### [facility] (DEFAULT) [address] [place] [address] 68417TVP3.[address] e09Smvbdx1.5-10.5[facility] HospitalComment on above: Performed By: #### [id number], [id number], [id number] #### [facility] (DEFAULT) [address] [place] [address] 35422YK w Culture if Ind Standardon 11-18-6927Hdytfxenul UA NormalSt. Elizabeth Hospital HospitalComment on above:Performed By: #### [id number] ####[facility] (DEFAULT)[address] [place] [address] 01067Kwtfg (U) YellowNormalSt. Elizabeth Hospital HospitalComment on above:Performed By: #### [id number] ####[facility] (DEFAULT)[address] [place] [address] 81228Dwflkbx?No NormalIagraultman alliance community hospital HospitalComment on above:Performed By: #### [id number] ####[facility] (DEFAULT)[address] [place] [address] 32481Drjouqd (U) [Mass/Vol]NegativeNormalMagruder HospitalComment on above:Performed By: #### [id number] ####[facility] (DEFAULT)[address] [place] [address] 59808Xsdapnk Ql (U)NegativeNormalMagruder HospitalComment on above:Performed By: #### [id number] ####[facility] (DEFAULT)[address] [place] [address] 54978Qtcov?Not IndicatedNormalMagruder HospitalComment on above:Performed By: #### [id number] ####[facility] (DEFAULT)[address] [place] [address] 03647DO BilirubinNegativeNormalMagruder HospitalComment on above:Performed By: #### [id number] ####[facility] (DEFAULT)[address] [place] [address] 38777IH BloodNegativeNormalNEGATIVEIagruder HospitalComment on above:Performed By: #### [id number] ####[facility] (DEFAULT)[address] [place] [address] 37283AY ClarityCLEARNormalCLEARIagraultman alliance community hospital HospitalComment on above:Performed By: #### [id number] ####[facility] (DEFAULT)[address] [place] [address] 40044CV Leuk EstNegativeNormalNEGATIVESt. [facility] Hospital Hospital Comment on above:Performed By: #### [id number] ####[facility] (DEFAULT)[address] [place] [address] [address] [facility] HospitalComment on above:Performed By: #### [id number] ####[facility] (DEFAULT)[address] [place] [address] 78425XP pH6.4Zjnjco6-8 [facility] HospitalComment on above:Performed By: #### [id number] ####[facility] (DEFAULT)[address] [place] [address] 21282UE ProteinNegative NormalNEGATIVEIagraultman alliance community hospital HospitalComment on above:Performed By: #### [id number] ####[facility] (DEFAULT)[address] [place], [place] [address]ME Spec Grav1.626Tecbgw9.001-1.035[facility] SystemComment on above:Performed By: #### [id number] ####[facility] (DEFAULT)[address] [place] [address] 67345YO Urobilinogen0.2 mg/dLNormal0.2-1.0[facility] SystemComment on above: Performed By: #### [id number] ####[facility] (DEFAULT)[address] [place] [address] 72861Rtuze SourceClean CatchSumma Health [facility] Campus Comment on above:Performed By: #### [id number] ####[facility] (DEFAULT)[address] [place] [address] 70408 Vital Signs Date TimeVital SignValuePerforming VigupdhheOaiebzrb94-69-1039 09:30-0400Body dochhv630.3 Radha Menchaca MD Work Phone: [phone] SystemEkfiuvptfs32-57-8705 09:30-0400Body mass index (BMI) [Ratio]24.81 kg/l3TcaarJermain Menchaca MD Work Phone: [phone] SystemSrzvlcbxyr84-61-1164 09:30-0400Body npmaws39.2 kg Jermain Menchaca MD Work Phone: [phone] SystemYpxexzdcxc69-05-9213 09:30-0400Diastolic blood ueifdxww22 mm[Hg]Jermain Menchaca MD Work Phone: [phone] SystemHgayppjlfl42-11-8689 09:30-0400Heart rate68 /min Jermain Menchaca MD Work Phone: [phone] SystemWxowvbwypm39-15-7739 09:30-4824WiV7% (BldA) [Mass fraction]98 %Jermain Menchaca MD Work Phone: [phone] SystemAygebzrmio71-54-2990 09:30-0400Systolic blood whqsyeiu105 mm[Hg]Jermain Menchaca MD Work Phone: [facility] SystemOrvcferiwx14-20-1069 09:29-0400Body xphito177.3 cmRconcetta Menchaca MD Work Phone: [facility] HospitalAnpqgbwzwe23-36-9647 09:29-0400Body mass index (BMI) [Ratio]24.81 kg/n5NtwgcJermain Menchaca MD Work Phone: [facility] HospitalIwhgvdaszu44-55-4440 09:29-0400Body lmpukg43.2 kg Jermain Menchaca MD Work Phone: [facility] HospitalIfoexlbiil08-10-1457 09:29-0400Diastolic blood somgcvti69 mm[Hg]Jermain Menchaca MD Work Phone: [facility] HospitalFmkpbvrskh48-91-6545 09:29-0400Heart rate79 /min Jermain Menchaca MD Work Phone: [facility] SystemSenmtunfld98-09-4074 09:29-5260PjC3% (BldA) [Mass fraction]95 %Jermain Menchaca MD Work Phone: [facility] SystemRvmwtzqqix30-13-3261 09:29-0400Systolic blood aspichch515 mm[Hg]Jermain Menchaca MD Work Phone: [facility] SystemEypriasvtg67-10-6442 08:28-0500Body umjsjy740.3 cmChata Hemmer PA Work Phone: [facility] HospitalXrhpnjuuoy47-44-7661 08:28-0500Body mass index (BMI) [Ratio]24.04 kg/b4Xjffc Hemmer PA Work Phone: [facility] HospitalJfnadvaaod66-65-6976 08:28-0500Body .85 kgChata Hemmer PA Work Phone: [place] [phone] 08:28-0500Diastolic blood seohfuyx84 mm[Hg]Chata Hemmer PA Work Phone: [facility] HospitalLvblrgaxdl00-59-8698 08:28-0500Heart gdvw604 /min Chata Hemmer PA Work Phone: [place] [phone] 08:28-0500Respiratory rate16 /minZekeen Hemmer PA Work Phone: [place] [phone] 08:28-5143DjR8% (BldA) [Mass fraction]92 %Chata Hemmer PA Work Phone: [facility] SystemBjbfgddxsj78-10-2700 08:28-0500Systolic blood gyvywoyw199 mm[Hg]Chata Hemmer PA Work Phone: [facility] SystemRqregpdljs06-36-6418 08:30-0500Body ammdro222.3 cmKaren Hemmer PA Work Phone: [place] [phone] 08:30-0500Body mass index (BMI) [Ratio]24.54 kg/p7Npmzu Hemmer PA Work Phone: [facility] SystemHtnmygpkjo71-66-5120 08:30-0500Body wnhebl40.39 kgKaren Hemmer PA Work Phone: [facility] SystemXhrgoavvqr55-50-3637 08:30-0500Diastolic blood mm[Hg]Chata Hemmer PA Work Phone: [facility] SystemUtmwumyoca80-80-0891 08:30-0500Heart rate68 /min Chata Hemmer PA Work Phone: [place] [phone] 08:30-0500Respiratory rate16 /minZekeen Hemmer PA Work Phone: [facility] SystemZgcnwuhsva35-59-7746 08:30-8801IcP2% (BldA) [Mass fraction]91 %Chata Hemmer PA Work Phone: [place] [address]Zjhimursll57-02-3948 08:30-0500Systolic blood szxswzza497 mm[Hg]Chata Hemmer PA Work Phone: [facility] SystemKmcuxiqrds09-85-5365 13:50-0400Body .3 cmRconcetta Menchaca MD Work Phone: [facility] SystemMugrzmabgn50-47-5153 13:50-0400Body mass index (BMI) [Ratio]24.96 kg/g6SimlbJermain Menchaca MD Work Phone: [facility] SystemUvrdfslduz96-25-8503 13:50-0400Body wukplh90.66 kgJemrain Menchaca MD Work Phone: [facility] HospitalXmzpshvvow18-98-5394 13:50-0400Diastolic blood wuyzyqzp31 mm[Hg]Jermain Menchaca MD Work Phone: [facility] HospitalLyuquaqolx11-49-0623 13:50-0400Heart rate74 /min Jermain Menchaca MD Work Phone: [facility] HospitalSpfqerqcsr51-72-7655 13:50-0234CsS7% (BldA) [Mass fraction]97 %Jermain Menchaca MD Work Phone: [facility] HospitalGzwjogmlew90-09-1190 13:50-0400Systolic blood jaimmswo479 mm[Hg]Jermain Menchaca MD Work Phone: [facility] Encounters Encounter DateEncounter TypeCare ProviderFacilityStart: 12-09-2024 End: 51-73-6052mcenebxyctPqyyfrj Vytautas Giedraitis MDFacility:[facility] [place] Start: 11-25-2024 End: 61-79-8674joqllqdqtsLzmkdoz Vytautas Giedraitis MDFacility:[facility] [place] Start: 11-19-2024 End: 33-80-7608Mdbtwz outpatient visit 25 minutesJermain Menchaca MD Work Phone: [facility] MedinceComment on above:Acute hip pain, left (Primary Dx); Piriformis syndrome of left sideStart: 11-19-2024 End: 17-71-3121cnjrepopjlLNRYN M ALDANot AvailableStart: 11-06-2024 End: 80-37-2527Bczeqfabf department patient visitPAREGI GAINESSouthwestern Vermont Medical CenterBebe Placer HospitalStart: 10-28-2024 End: 29-12-3714Haufuckem Menchaca MD Work Phone: [facility] MedinceStart: 10-28-2024 End: 10-06-1102Fnekjtmariam Menchaca MD Work Phone: [facility] MedinceStart: 10-28-2024 End: 07-51-4331Mjkfj of hemosiderin, quantJermain Menchaca MD Work Phone: noms HealthcareStart: 10-28-2024 End: 12-88-7144Kvwjvgy encounter Jacki Menchaca MD Work Phone: [facility] MedinceComment on above:Routine general medical examination at health care facility (Primary Dx); Benign essential hypertension ; Pure hypercholesterolemia ; Medicare annual wellness visit, subsequent; Retention of urine, unspecifiedStart: 10-28-2024 End: 93-84-1618magqgeqtluRVTNK M ALDANot AvailableStart: 04-29-2024 End: 30-42-9385zltkqatdqpPAJCF M ALDANot AvailableStart: 01-22-2024 End: 87-71-6841ginypercvzAnborhbAnjana Pacheco MDFacility:[facility] [place] Start: 01-16-2024 End: 39-26-1806agquwlwgjcSYKYB T OLSENNot AvailableStart: 01-16-2024 End: 51-28-5123Udjwno Blayne Silvestre [employer] Work Phone: [facility]THOPAEDICSStart: 01-16-2024 End: 79-87-5141Neguaq Blayne Silvestre [employer] Work Phone: [facility]THOPAEDICSStart: 01-16-2024 End: 54-08-5330krywvxxxhnKJWZL T OLSENNot AvailableStart: 01-16-2024 End: 71-34-5044Nazcjk outpatient visit 10 minutesLita Silvestre [employer] Work Phone: [facility] ORTHOPAEDICSComment on above:Closed fracture of multiple pubic rami, right, with routine healing, subsequent encounterStart: 01-09-2024 End: 11-13-4401Spidis Smita COLIN Work Phone: [facility] FMStart: 01-09-2024 End: 21-48-9536Sfyfnh Smita COLIN Work Phone: [facility] FMStart: 01-09-2024 End: 05-38-2416Snjfva outpatient visit 15 minutesChata Blas Lilia PA Work Phone: [facility] FMComment on above:Pressure ulcer of coccygeal region, stage 2 (CMS/HCC) (Primary Dx)Start: 01-09-2024 End: 08-62-5286uxtmudkqwsGLKJF M HEMMERNot AvailableStart: 01-01-2024 End: 58-17-6631cguwdsiwuvOchrjny Vytautas Giedraitis MDFacility:[facility] [place] Start: 12-26-2023 End: 29-83-3678Abvcsp Smita Rodrigues PA Work Phone: [facility] FMStart: 12-26-2023 End: 66-16-3647Tmxcty Smita COLIN Work Phone: [facility] FMStart: 12-26-2023 End: 31-04-7678Jxxnzm outpatient visit 15 minutesChata Blas Lilia PA Work Phone: [facility] FMComment on above:Pressure ulcer of coccygeal region, stage 2 (CMS/HCC) (Primary Dx); Need for vaccinationStart: 12-26-2023 End: 96-37-6619ldmmwzbqgdAAEBQ M HEMMERNot AvailableStart: 12-25-2023 End: 70-07-4581Mgcdxseyc Larissa Rutherford DO Work Phone: [facility] ORTHOPAEDICSComment on above:questionStart: 12-25-2023 End: 43-56-8466gehklcloaaKjnifnq Vytautas Enricoitis Facility:[facility] Start: 12-19-2023 End: 82-48-6619Btmetb Blayne Silvestre [employer] Work Phone: [facility] ORTHOPAEDICSStart: 12-19-2023 End: 40-32-9142Ymshvk Blayne Silvestre [employer] Work Phone: [facility] ORTHOPAEDICSStart: 12-19-2023 End: 37-42-6151Bqtkcb outpatient visit 15 minutesLita Silvestre NP Work Phone: [facility] CI ORTHOPAEDICSComment on above:Closed fracture of multiple pubic rami, right, with routine healing, subsequent encounter (Primary Dx); Closed nondisplaced fracture of medial wall of left acetabulum with routine healing, subsequent encounter; Left-sided low back pain with left-sided sciatica, unspecified chronicityStart: 12-19-2023 End: 86-09-4978xwqpwjvzddZPCIA T OLSENNot AvailableStart: 11-23-2023 End: 67-76-2056Fiuvky Blayne Silvestre NP Work Phone: [phone] FB ORTHOPAEDICSStart: 11-23-2023 End: 02-22-6147Aweugh Blayne Silvestre NP Work Phone: [phone] [facility] ORTHOPAEDICSStart: 11-23-2023 End: 95-66-5045Unpmfd outpatient visit 10 minutesLita Silvestre NP Work Phone: NOQF FB ORTHOPAEDICSComment on above:Closed fracture of multiple pubic rami, right, with routine healing, subsequent encounter; Closed nondisplaced fracture of medial wall of left acetabulum with routine healing, subsequent encounterStart: 11-09-2023 End: 40-97-5082Khmram Blayne Silvestre NP Work Phone: [phone] [facility] ORTHOPAEDICSStart: 11-09-2023 End: 77-39-6662Dlbmpp Blayne Silvestre NP Work Phone: NOSQ [facility] ORTHOPAEDICSStart: 11-09-2023 End: 57-39-3661Xkdztp outpatient visit 15 minutesLita Silvestre NP Work Phone: [phone] FB ORTHOPAEDICSComment on above:Closed fracture of multiple pubic rami, right, initial encounter (CMS/HCC) (Primary Dx); Nondisplaced fracture of medial wall of left acetabulum, initial encounter for closed fracture (CMS/HCC)Start: 10-30-2023 End: 46-82-2822Kdkjq of hemosiderinEdwin MD Work Phone: [facility] Work Phone: Start: 10-30-2023 End: 13-05-1704Pzbuho flowsRichard Menchaca MD Work Phone: [facility] CI FMStart: 10-30-2023 End: 74-43-7816Ryxrvf flowsRichard Menchaca MD Work Phone: NOFA CI FMStart: 10-30-2023 End: 66-61-4269Xdtcren encounter procedureJermain Menchaca MD Work Phone: [facility] FMComment on above:Routine general medical examination at health care facility (Primary Dx); 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); 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); Benign essential hypertension (CMS/HCC); Pure hypercholesterolemia (CMS/HCC)Start: 06-05-2023 End: 69-13-7374Mktudayxg encounterPaige Mack [facility] Start: 10-11-2022 End: 04-45-3038Reqor of hemosideEdwin palumbo MD Work Phone: [facility] HealthcareStart: 12-17-2021 End: 14-02-1829wllenkiqnkXM RUGEN ALDAFacility:H1 Procedures DateProcedureProcedure DetailPerforming ClinicianStart: 58-31-1239Ksbapeyymj examination pelvis 1/2 viewsLita Silvestre [employer] Work Phone: Start: 38-37-7872Tssodeqpan examination pelvis 1/2 viewsLita Silvestre [employer] Work Phone: Start: 15-86-4596Swaiiozmew examination pelvis 1/2 viewsLita Silvestre [employer] Work Phone: Plan of Treatment DateCare ActivityDetailAuthorStart: 09-08-2026Medicare Annual Wellness (AWV) Medicare Annual Wellness (AWV)[facility] HealthcareStart: 04-28-2025 End: 40-89-0384Opbepuw encounter /09/2026 8:30 AM EDT Office Visit [facility] [place] [facility] [address] [facility] [address] [place] [id number] Jermain Menchaca MD [address] [facility] [address] [place] [address] [facility] [place] [facility]: 10-29-2024 Medicare Annual Wellness (AWV)Medicare Annual Wellness (AWV)[facility] Start: 10-28-2024 End: 81-92-4155RHV W Auto Differential panel - BloodCBC and differential Lab Routine Benign essential hypertension Pure hypercholesterolemia Medicare annual wellness visit, subsequent Expected: 10/28/2024 (Approximate), Expires: 10/28/2025NOWI HealthcareComment on above:Expected: 10/28/2024 (Approximate), Expires: 10/28/2025Start: 10-28-2024 End: 79-82-7623Mawmuyxogrjyl metabolic 2000 panel - Serum or PlasmaComprehensive metabolic panel Lab Routine Benign essential hypertension Pure hypercholesterolemia Medicare annual wellness visit, subsequent Expected: 10/28/2024 (Approximate), Expires: 10/28/2025NOWI HealthcareComment on above: Expected: 10/28/2024 (Approximate), Expires: 10/28/2025Start: 10-28-2024 End: 68-94-0658Gkiwp 1996 panel - Serum or PlasmaLipid panel Lab Routine Pure hypercholesterolemia Medicare annual wellness visit, subsequent Expected: 10/28/2024 (Approximate), Expires: 10/28/2025[facility] Work Phone: Comment on above:Expected: 10/28/2024 (Approximate), Expires: 10/28/2025Start: 10-28-2024 End: 45-59-4505Oamaaal encounter usxqivowe87/08/2025 9:30 AM EDT Office Visit [facility] [place] [facility] [address] [facility] [address] [place] [phone] Jermain Menchaca MD [address] [facility] [address] [place] [address] ArrivedN[facility] [place] [facility] MedinceComment on above:ArrivedStart: 57-11-2823Ldbfzyrip vaccinationInfluenza Vaccine (#1)[facility] HealthcareStart: 19-29-2400Pvzlu BMI ScreeningAdult BMI ScreeningProTrumbull Memorial Hospitalca Health SystemStart: 80-93-6025Sdvdgmq ScreeningTobacco ScreeningProTrumbull Memorial Hospitalca [facility] SystemStart: 04-29-2024 End: 06-19-0846Goyybfi encounter zarpdhinb90/10/2025 9:45 AM EDT Office Visit [facility] [address] [facility] [address] [place] [address] Jermain Menchaca MD [address] [facility] [address] [place] [address] [facility] FMStart: 01-16-2024 End: 23-01-1545Bvqssjq encounter asphayptu98/26/2024 10:15 AM EST Office Visit [facility] [address] [facility] [address] [place] [address] Lita Silvestre, MINER PLACER [address] [place] [address] [facility] ORTHOPAEDICSStart: 01-09-2024 End: 84-45-9925Tvzdmal encounter procedureNOMS CI FMComment on above:Arrived Start: 12-26-2023 End: 27-93-6943Utdheag encounter vigncztlt49/05/2024 8:30 AM EST Office Visit [facility] [address] [facility] [address] [place] [address] Chata Rodrigues PA [address] [facility] [address] [place] [address] ArrivedNOMS CI FMComment on above:ArrivedStart: 12-19-2023 End: 34-48-3119Vxgdmyr encounter procedureNOMS CI ORTHOPAEDICSComment on above: Closed fracture of multiple pubic rami, right, with routine healing, subsequent encounter; Closed nondisplaced fracture of medial wall of left acetabulum with routine healing, subsequent encounterStart: 12-07-2023 End: 06-06-3327Okcvave encounter hmtmctkek69/17/2024 9:30 AM EDT Office Visit [facility] [address] [place] [address] Lita Silvestre, MINER PLACER [address] [place] [address] [facility] FB ORTHOPAEDICSStart: 11-23-2023 End: 48-26-1103Ppncysa encounter yhcqdwsab15/03/2024 2:00 PM EDT Office Visit [facility] [address] [place] [address] Lita Silvestre, MINER PLACER [address] [place] [address] ArrivedNOMS FB ORTHOPAEDICSComment on above:ArrivedStart: 11-09-2023 End: 08-92-4582Afpcetk encounter omrnfphxk95/19/2024 1:45 PM EDT Office Visit [facility] [address] [place] [address] Lita Silvestre, MINER PLACER [address] [place] [address] ArrivedNOMS FB ORTHOPAEDICSComment on above:ArrivedStart: 10-30-2023 End: 17-24-5925Bbtdpon encounter tboydkwck35/09/2024 2:00 PM EDT Office Visit [facility] [address] [facility] [address] [place] [address] Jermain Menchaca MD [address] [facility] [address] [place] [address] ArrivedNOMS CI FMComment on above:ArrivedStart: 10-22-2023 Influenza vaccinationNOMS HealthcareStart: 08-22-2024Medicare Annual Wellness (AWV)Medicare Annual Wellness (AWV)[facility] HealthcareStart: 44-63-5177Zujf Risk ScreeningFall Risk ScreeningDavis Regional Medical Centertart: 1986 Administration of varicella zoster vaccineZoster (Shingles) Vaccine (1 of 2) [facility] Centertart: 89-33-1701OWeR,Tdap and Td Vaccines (1 - Tdap) DTaP,Tdap and Td Vaccines (1 - Tdap)[facility] SystemStart: 1948 Depression ScreeningDepression ScreeningBlanchard Valley Health System SystemStart: 1936 Medicare Annual Wellness VisitMedicare Annual Wellness VisitSelect [facility] Immunizations Immunization DateImmunizationNotesCare MdkxqnicDcedxwsr82-00-1963Awxovsxdj, High-dose Seasonal, Quadrivalent, Preservative FreeChata COLIN Work Phone: [facility] SystemOwaxyaclvm93-74-1054abhvlkslt virus vaccine, unspecified formulationJermain Menchaca MD Work Phone: [facility] SystemMhhdrxygmv59-01-3550dvxqwmvok, high dose seasonal, preservative-freeJermain Menchaca MD Work Phone: [facility] SystemYardbawmdn74-30-8775eumywssmm virus vaccine, unspecified formulationHoward Memorial Hospital10-29-2022Influenza, High-dose Seasonal, Quadrivalent, Preservative FreeJermain Menchaca MD Work Phone: [facility] SystemGwhbnxnrrq35-17-8657Odnbgrl Bivalent Booster VaccinationJermain Menchaca MD Work Phone: [facility] SystemLezpkyzhfn11-37-1262Icrtlogsi, High-dose Seasonal, Quadrivalent, Preservative FreeJermain Menchaca MD Work Phone: [facility] SystemUiwkldderj99-39-8689gbjcfxesn, injectable, quadrivalent, preservative Brett Menchaca MD Work Phone: [facility] SystemOcequrhfmp91-45-2402uevqaotdx, injectable, quadrivalent, preservative Brett Menchaca MD Work Phone: [facility] SystemRgkxdwsdea82-25-3385jizudezcw, high dose seasonal, preservative-freeJermain Menchaca MD Work Phone: [phone] [place], [place] [address]Ordlbshlrt84-93-6378xgfipplhy, injectable, quadrivalent, preservative Brett Menchaca MD Work Phone: [phone] [place], [place] [address]Xvkvgsanxl78-30-9980xfsjzjbjb, high dose seasonal, preservative-freeJermain Menchaca MD Work Phone: [phone]-[address] [place], [place] [address]Bdaozlixyf20-49-5535nwomcutdemdc conjugate vaccine, 13 Ana Menchaca MD Work Phone: [phone]-[address] [place], [place] [address]Ibmpmeyzpp29-22-4780ptotzcyrsqvy polysaccharide vaccine, 23 Ana Menchaca MD Work Phone: [phone]-[address] [place], [place] [address]Snienidjzo62-42-1886pdeserwhz, injectable, madin abhijit canine kidney, preservative Brett Menchaca MD Work Phone: [phone] [place], [place] [address]Jgejqlkmnf77-46-1419ybrhymkws virus vaccine, unspecified formulationJermain Menchaca MD Work Phone: [phone]-[address] [place], [place] [address]Mefgbnlnut37-35-2083qnydgqicn, seasonal, injectable, preservative Brett Menchaca MD Work Phone: [phone] [place], [place] [address]Ibxarrmsmm10-89-1336lxrofdsob, high dose seasonal, preservative-freeJermain Menchaca MD Work Phone: [phone]-[address] [place], [place] [address]Qmjijedaad92-00-7908tsqixycvwywu vaccine, unspecified formulationJermain Menchaca MD Work Phone: [phone] [place], [place] [address]Lysntyceqw31-02-6478huihgwike virus vaccine, whole Angelica Menchaca MD Work Phone: [phone] [place], [place] [address]Onqaltfotc40-38-9508jdlezpbnx virus vaccine, whole Angelica Menchaca MD Work Phone: [phone] [place], [place] [address]Qolxxpuiyt86-05-1907snhzkldqe virus vaccine, whole Angelica Menchaca MD Work Phone: [phone]-[address] [place], [place] [address]Bgyrbkdrpd60-82-3060wmqldzamf virus vaccine, whole Angelica Menchaca MD Work Phone: [facility] SystemJlscwciepn84-49-4879ghsotxyjf virus vaccine, whole Angelica Menchaca MD Work Phone: [facility] SystemPlcahxfrxk74-19-0536zbdqffahf virus vaccine, whole virusJermain Menchaca MD Work Phone: [facility] Payers DatePayer CategoryPayerPolicy [id number] [id number] Health Insurance [id number] 2002Medicare [id number] [id number] 1960 [id number] 2.0.1.761367.3.579.2.593 [id number] 2.840.1.601051.3.579.2.083023-05-9202Qcrpime [id number] 2.0.1.558113.3.57[id number] 2.0.1.296525.3.57[id number] 2.16840.1.609954.3.57[id number] 2.16840.1.889083.3.57[id number] 2.16840.1.854478.3.57[id number] 2.840.1.837980.3.57[id number] 2.16.840.1.358679.3.57[id number] 2.16.840.1.935472.3.57[id number] 2.16.840.1.360870.3.57[id number] 2.16.840.1.837722.3.57[id number] 2.16.840.1.742534.3.57[id number] 2.16.840.1.826430.3.57[id number] 2.16.840.1.997432.3.57[id number] 2.16.840.1.269279.3.579.2.196 Social History DateTypeDetailFacilityStart: 12-01-2021 End: 49-65-4221Mxdhxtq smoking status NHISEx-smokerNOMS Healthcare Work Phone: End: 68-88-1648Mlfgsxy of tobacco useCurrent smokerNOMS Healthcare End: 83-37-1819Pydjgqg of tobacco useCigarette SmokerNOMS HealthcareStart: 12-01-2021 End: 09-71-6990Mrsrngu use and exposureSmokeless tobacco non-userNOMS Healthcare Start: 10-30-2023 End: 31-85-7791Etwfooebr beverage intakeCurrent drinker of alcohol (finding)NOMS HealthcareStart: 10-30-2023 End: 60-27-8664Dfvoexy of Social functionNOMS HealthcareStart: 10-30-2023 End: 10-90-9863Xwmlejj use panelNOMS HealthcareStart: 22-18-0438Routwjp Comment 1-2 drinks monthly or lessNOMS HealthcareStart: 06-50-3179Csd assigned at Not on fileFreeman Health SystemHas the electric, gas, oil, or water company threatened to shut off services in your home in past 12MoNoProRegional Medical CenterIn the past 12 months, has lack of transportation kept you from medical appointments or from getting medications?[facility]isch Hospitaltart: 64-65-4530Gscowyw CommentQuit smoking over 40 years agoBlanchard Valley Health System System Start: 50-76-0292Pzvbgwz CommentrarePGreen Cross Hospital Goals DatePatient GoalDesired Activity/StatePersonal health goalComment on above: Evaluation of progress towards goal: Safe dc transition from hospital to home with family support. Functional Status AtagYmhbkwvtfbAehqvsPxdcztjj80-10-3252Tdhaiab Health Questionnaire 2 item (PHQ- 2) [Reported][facility] Health SystemCfiybhpbzx00-95-9706Hykvdzv Health Questionnaire 2 item (PHQ- 2) [Reported][facility] Clinical Notes 06-21-2021 to 11-19-2024 Note Date & XwtiZqovDhhjbauz04-15-2142 History of Present illness Narrative* Jermain Menchaca MD - 11/19/2024 9:42 AM EDTAssociated Problem(s): Piriformis syndrome of left side Stretching exercises given * Jermain Menchaca MD - 11/19/2024 9:36 AM EDTAssociated Problem(s): Acute hip pain, left Stretching and strengthening exercises. NSAIDs as needed * Jermain Menchaca MD - 11/19/2024 9:30 AM EDT Images from the original note were not [...] Flowsheet Row Patient Outreach from 11/08/2024 in [facility] with Shannan Veliz RN Hospital Information ED, Hospital or Halfway Facility Discharge? ED Patient has been contacted within 2 days of being seen in the ED Yes Diagnosis Strain of left hip Discharge Date 11/06/24 Discharged To: Home Setting Discharge Hospital [facility] Engagement Call Start Time 0849 Admission Date [...] to ER for evaluation, bent over to berry picker an apple and felt a pop [...] mg by mouth in the morning. HYDROcodone-acetaminophen (Palermo) 5-325 MG tablet Take 1 tablet by mouth every 6 (six) hours if needed levothyroxine (Synthroid, Levoxyl) 100 MCG tablet TAKE 1 TABLET BY MOUTH DAILY *hold on sundays* 90tablet 3 lisinopril 10 MG tablet Take 1 [...] Decompression laminectomy L3-L4, L4-L5 OTHER SURGICAL HISTORY Procedure:Surgery;Disease:Pneumothorax OTHER SURGICAL HISTORY Right 08/08/[address] Rutherford. [facility] [place] REPAIR OF HAMMERTOE,ONE Bilateral Procedure:Surgical repair;Disease:Hammer Toe [...] or fail to improve. documented in this encounterFreeman Health SystemPmuxskgnru33-86-3847 History of Present illness Narrative* Jermain Menchaca MD - 10/28/2024 9:37 AM EDTAssociated Problem(s): Medicare annual wellness visit, subsequent Colonoscopy [...] Ultrasound of Aorta to screen for Anuerysm * Jermain Menchaca MD - 10/28/2024 9:36 AM EDTAssociated Problem(s): Benign essential hypertension Our specific goals, [...] taking them as prescribed. DASH diet handouts * Jermain Menchaca MD - 10/28/2024 9:30 AM EDT Images from the original note were not included. Subjective : Chief Complaint: Enrique Mike is an 89 y.o. male here for an annual wellness visit. Zane Fernandez I have reviewed and reconciled the history and medication list with the patient today. Current Outpatient Medications Medication Sig Dispense Refill levothyroxine (Synthroid, Levoxyl) 100 MCG tablet TAKE 1 TABLET BY MOUTH DAILY *hold on sundays* 90tablet 3 meloxicam (Mobic) 15 MG tablet TAKE [...] mg by mouth in the morning. HYDROcodone-acetaminophen (Palermo) 5-325 MG tablet Take 1 tablet by [...] apparent by direct observation Three Word Registration: Ev Zamora, Picture Clock Drawing: Normal Clock - 2 Three Word Recall: All 3 words correct - 3 Total Score (0-5 Points): 5 Pain Assessment Pain Score: 0 - No pain Advance Care Planning Do you have a living will?: Yes Do you have a medical power of tax attorney?: Yes Objective : BP 132/82 Pulse [...] on October 28, 2024 documented in this encounterFreeman Health SystemXdajixsipl85-30-9918 History of Present illness Narrative* Lita Silvestre NP - 01/16/2024 10:15 AM EST Images from the original note were not included. Chief Complaint Patient presents with Pelvis - Follow-up HISTORY OF PRESENT ILLNESS: Enrique Mike is an 88 y.o. @ male. Low back/pelvis injury x 10 weeks 2 days, 11/05/23, fell back off a ladder. Went to [facility] ER 11/05, hadCT abdomen pelvis and given norco. Hx decompressive laminectomy L3-4, L4-5 (12/01/21)- Dr Rutherford Walking with a walker. Notes pain has improved. Not as bad as it was, still mostly LT sided. Pain is 2-3/10 today. Taking a pain med from pain management, unsure of name. Denies bowel/bladder issues.Admits N/T down LT leg. Says he is sleeping better. Will have soreness in tailbone with prolonged sitting. Prior tx: [facility] ER 11/06/23, CT abdomen pelvis, norco, TYL, XR [facility] 10/29/24, XR [facility] 01/16/24 ALLERGIES: No Known Allergies HOME MEDICATIONS: Current Outpatient Medications Medication Instructions acetaminophen (TYLENOL) 325 mg, Oral, Every 6 hours PRN baclofen (LIORESAL) 10 mg, Oral, 2 times daily PRN co-enzyme Q-10 100 mg, Oral, Daily finasteride (PROSCAR) 5 mg, Oral, Daily HYDROcodone-acetaminophen (Palermo) 5-325 MG tablet 1 tablet, Oral, Every [...] rami and left acetabulum fracture. Lita Silvestre SPLICING MACHINE OPERATOR AUTOMATIC-TRACK REPAIR SUPERVISOR ASSESSMENT: ICD-10-CM 1. Closed fracture of [...] develop for requiring urgent evaluation. Lita Silvestre SPLICING MACHINE OPERATOR AUTOMATIC-TRACK REPAIR SUPERVISOR documented in this encounterFreeman Health SystemGancuvobqv34-66-0214 History of Present illness Narrative* Chata Rodrigues, CRISTI - 01/09/2024 8:30 AM EST Subjective Patient ID: Enrique Mike is a [...] mg by mouth in the morning. HYDROcodone-acetaminophen (Palermo) 5-325 MG tablet Take 1 tablet by [...] Types: Cigarettes Quit date: 1969 Years since quittin.9 Smokeless tobacco: Never Vaping [...] Decompression laminectomy L3-L4, L4-L5 OTHER SURGICAL HISTORY Procedure:Surgery;Disease:Pneumothorax OTHER SURGICAL HISTORY Right 08/08/[address] Rutherford[address] [facility] [place] REPAIR OF HAMMERTOE,ONE Bilateral Procedure:Surgical repair;Disease:Hammer Toe [...] coccygeal region, erythema of bilateral coccygeal region, nopurulent drainage Neurological: General: No focal deficit present. [...] now scabbed. He is doing well with Napartner. Pt is being told by PM to sit, and our office to off load, PM is not aware of pt's wound. Encouraged himto balance his time sitting and standing. Off load as much as possible to help prevent the skin from starting to break down again. Advised of risks if the area becomes infected. He can follow up for recheck of the area as needed. He and his son voiced understanding. Follow up for Appointment As Scheduled. documented in this encounterFreeman Health SystemTedeqqvrvd20-90-0417 History of Present illness Narrative* Chata Rodrigues, CRISTI - 12/26/2023 8:30 AM EST Images from the original note were not [...] like.He has been using a cream the curtain cutter prescribed (doesn't know the name of the [...] mg by mouth in the morning. HYDROcodone-acetaminophen (Palermo) 5-325 MG tablet Take 1 tablet by [...] Decompression laminectomy L3-L4, L4-L5 OTHER SURGICAL HISTORY Procedure:Surgery;Disease:Pneumothorax OTHER SURGICAL HISTORY Right 08/08/[address] Rutherford[address] [facility] [place] REPAIR OF HAMMERTOE,ONE Bilateral Procedure:Surgical repair;Disease:Hammer Toe [...] orthopedic issues, he has difficulty off loading thearea. Many positions aggravate his back pain. Encouraged him to off load the area when ever possible. Walk slowly around house when possible. Allow area to fully air dry after bathing before getting d ressed. Will see him back for a recheck in 1-2 weeks. If not improving, or worsening, can refer to Wound Care Clinic. Need for vaccination - Influenza, high-dose seasonal, quadrivalent, PF ([id number]) (Fluzone High Dose Quad North 0.7mL dose) Provided pt with Flu shot today. He tolerated this well. Follow up for Wound Check in 1-2 Weeks. documented in this [place] [facility]11-04-2024 Telephone encounter Note* Telephone Encounter - Lita Silvestre NP - 12/25/2023 10:57 AM EST Sounds good [facility] Work Phone: [phone]) 979-667811-04-2024 Miscellaneous Notes* Telephone Encounter - Lita Silvestre NP - 12/25/2023 10:57 AM EST Sounds good * Telephone Encounter - Lita Silvestre NP - 12/25/2023 10:34 AM EST I can see him in [place] today but I dont know how much I will be able to do. * Telephone Encounter - Hanane Ambriz - 12/25/2023 8:36 AM EST Gerardo son called for patient stated his dad was seen for L-spine and hip pain by you and Dr Rutherford he was referred to pain mgmt in [facility] also, he can hardly walk and in a lot of pain. He asked where he should start, he did try [facility] mgmt number but had trouble getting ahold of them, I gave him the number to hospital and told him to ask for pain mgmt. He asked should he go there or can you or Dr Rutherford see him? Please advise. His call back [phone] documented in this [place] [facility]11-04-2024 Telephone encounter Note* Telephone Encounter - Lita Silvestre NP - 12/25/2023 10:34 AM EST I can see him in [place] today but I dont know how much I will be able to do. [facility] Jeaicxfbuk10-44-5770 Telephone encounter Note* Telephone Encounter - Hanane Ambriz - 12/25/2023 8:36 AM EST Gerardo son called for patient stated his dad was seen for L-spine and hip pain by you and Dr Rutherford he was referred to pain mgmt in [facility] also, he can hardly walk and in a lot of pain. He asked where he should start, he did try [facility] mgmt number but had trouble getting ahold of them, I gave him the number to hospital and told him to ask for pain mgmt. He asked should he go there or can you or Dr Rutherford see him? Please advise. His call back [phone] [facility] HospitalBidtvzqage67-45-6408 History of Present illness Narrative* Lita Silvestre, CHICO - 12/19/2023 9:15 AM EDT Images from the original note were not included. Chief Complaint Patient presents with Pelvis - Follow-up HISTORY OF PRESENT ILLNESS: Enrique Mike is an 88 y.o. @ male. Low back/pelvis injury x 6 weeks 2 days, 11/05/23, fell back off a ladder. Went to [facility] ER 11/05, had CT abdomen pelvis and given norco. Hx decompressive laminectomy L3-4, L4-5 (12/01/21)- Dr Rutherford Walking with a walker. States he was doing fine but has recently been having a terrible time. Unsure if something shifted. Pain is mostly LT sided. Taking TYL and IBU. Prior tx: [facility] ER 11/06/23, CT abdomen pelvis, norco, TYL, XR [facility] 12/19/23 ALLERGIES: No Known Allergies HOME MEDICATIONS: Current Outpatient Medications Medication Instructions acetaminophen (TYLENOL) 325 mg, Oral, Every 6 hours PRN baclofen (LIORESAL) 10 mg, Oral, 2 times daily PRN co-enzyme Q-10 100 mg, Oral, Daily finasteride (PROSCAR) 5 mg, Oral, Daily HYDROcodone-acetaminophen ([place]ermo) 5-325 MG tablet 1 tablet, Oral, Every [...] rami and left acetabulum fracture. Lita Silvestre SPLICING MACHINE OPERATOR AUTOMATIC-TRACK REPAIR SUPERVISOR ASSESSMENT: ICD-10-CM 1. Closed fracture of [...] develop for requiring urgent evaluation. Lita Silvestre SPLICING MACHINE OPERATOR AUTOMATIC-TRACK REPAIR SUPERVISOR documented in this encounterFreeman Health [id number] History of Present illness Narrative* Lita Silvestre NP - 11/23/2023 2:00 PM EDT Images from the original note were not included. Chief Complaint Patient presents with Pelvis - Follow-up HISTORY OF PRESENT ILLNESS: Enrique Mike is an 88 y.o. @ male. Low back/pelvis injury x 2 weeks 4 days, 11/05/23, fell back off a ladder. Went to [facility] ER 11/05, had CT abdomen pelvis and given norco. Hx decompressive laminectomy L3-4, L4-5 (12/01/21)- Dr Rutherford WBAT with walker. States he sat for a while in a hard chair, had increased pain. Pain near RT hip/buttocks. Taking TYL. Denies N/T. Does not wake at HS, sleep better in chair. Increased pain with walking. Prior tx: [facility] ER 11/06/23, CT abdomen pelvis, norco, TYL ALLERGIES: No Known Allergies HOME MEDICATIONS: Current Outpatient Medications Medication Instructions acetaminophen (TYLENOL) 325 mg, Oral, Every 6 hours PRN baclofen (LIORESAL) 10 mg, Oral, 2 times daily PRN co-enzyme Q-10 100 mg, Oral, Daily finasteride (PROSCAR) 5 mg, Oral, Daily HYDROcodone-acetaminophen (Palermo) 5-325 MG tablet 1 tablet, Oral, Every [...] rami and left acetabulum fracture. Lita Silvestre SPLICING MACHINE OPERATOR AUTOMATIC-TRACK REPAIR SUPERVISOR ASSESSMENT: ICD-10-CM 1. Closed fracture of [...] develop for requiring urgent evaluation. Lita Silvestre SPLICING MACHINE OPERATOR AUTOMATIC-TRACK REPAIR SUPERVISOR documented in this encounterFreeman Health SystemPhbbfcrvpz17-56-0897 History of Present illness Narrative* Lita Silvestre NP - 11/09/2023 1:45 PM EDT Images from the original note were not included. Chief Complaint Patient presents with Lower Back - Pain HISTORY OF PRESENT ILLNESS: Enrique Mike is an 88 y.o. @ male. Est pt, new problem. Low back/pelvis injury x 4 days, 11/05/23, fell back off a ladder. Went to [facility] ER 11/05, had CT abdomen pelvis and given norco. Hx decompressive laminectomy L3-4, L4-5 (12/01/21)- Dr Rutherford Walking with a walker. Denies pain in low back. Pain near RT hip/buttocks. Taking TYL. Denies N/T. Does not wake at HS, sleep better in chair. Increased pain with walking. Prior tx: [facility] ER 11/06/23, CT abdomen pelvis, norco ALLERGIES: No Known Allergies HOME MEDICATIONS: Current Outpatient Medications Medication Instructions acetaminophen (TYLENOL) 325 mg, Oral, Every 6 hours PRN baclofen (LIORESAL) 10 mg, Oral, 2 times daily PRN co-enzyme Q-10 100 mg, Oral, Daily finasteride (PROSCAR) 5 mg, Oral, Daily HYDROcodone-acetaminophen (Palermo) 5-325 MG tablet 1 tablet, Oral, Every [...] of multiple pubic rami, right, initial encounter ([facility] [facility] S32.591A 2. Nondisplaced fracture of medial wall of left acetabulum, initial encounter for closed fracture ([facility]) S32.475A Procedures PLAN: I reviewed CT findings [...] develop for requiring urgent evaluation. 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 No changes in treatment are suggested at this time. Continue Current meds. * Jermain Menchaca MD - 10/30/2023 1:57 PM EDTAssociated Problem(s): Benign essential hypertension (CMS/HCC) Our specific [...] taking them as prescribed. 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 Duff, Dr. 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 Duff, Dr. 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 [...] and signed by Kota Vargas on 10/18/2021 0738[facility] Note [id number]05-04-2022 [id number] 06-22-[address] HARRIS POST OPERATIVE SHOULDER INSTRUCTIONS [...] or concerns, please call the office at [phone] -Follow up as [facility]05-03-2022 [facility] Clinical Discharge Summary PERSON INFORMATION Name ENRIQUE MIKE Age 85 Years 1935 Sex MALE Language Romanian PCP JERMAIN MENCHACA MD Marital Status Med Service Observation Acct# Arrival 06/21/2021 05:54:00 Visit Reason SURGERY - LEFT REVERSE TOTAL SHOULDER - ARTHREX Acuity LOS 000 29:26 Address: [address] [place] [id number] Comment: PROVIDER INFORMATION VITALS INFORMATION Vital Sign [...] EDUCATION INFORMATION Instructions: Sangeeta- Post Op Shoulder (SATYAUDMELISSA) Follow up: With: Address: When: Enrique Rutherford [address] [place] [address], [address] [place] [id number] [facility] (1) 06/29/2021 10:45 AM DIAGNOSIS Osteoarthritis of left shoulder; Other specific arthropathies, not elsewhere classified, left shoulder; Rotator cuff tear arthropathy of left shoulder Comment: [facility]05-02-2022 Note [id number] HospitalEvaluation [facility]* Diagnosis Closed fracture of multiple pubic [...] sciatica, unspecified chronicity documented in this encounter [facility]* Diagnosis Screening PSA (prostate [...] unspecified single disease documented in this encounter [facility] HealthcareEvaluation note* Diagnosis Screening PSA (prostate [...] Primary Routine general medical examination at a [facility] care facility Embolism and thrombosis of unspecified [...] Primary Routine general medical examination at a [facility] Benign essential hypertension Essential hypertension, benign Pure [...] facility Routine general medical examination at a 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 care facility Benign essential hypertension Essential hypertension, benign Pure hypercholesterolemia Medicare annual wellness visit, subsequent Retention of urine, unspecified Acute hip pain, left- Primary Piriformis syndrome of left side documented in this encounter [facility] HealthcareInstructionsNot on filedocumented in this encounterBlanchard Valley Health System System Summary Purpose Family History No Family History Records FoundNo Family History Records FoundNo Family History Records FoundNo Family History Records FoundNo Family History Records FoundNo Family History Records FoundNo Family History Records Found Advance Directives No Advanced Directives Records Found Date ActivatedDate InactivatedComments06/01/2023 4:59 PM06/02/2023 9:12 PMDate ActivatedDate JtxyngpbxgtBifkgyjj45/20/2022 12:45 AM12/10/2021 4:05 PMDate ActivatedDate NzcwiplmavlBrpvquao96/12/2022 4:41 PM10 3:21 PM Additional Source Comments (unrecognized sect ion and content) No Status Records FoundNo Status Records FoundNo Status Records FoundNo Status Records FoundNo Status Records FoundNo Status Records FoundNo Status Records Found INFORMATION SOURCE (unrecogn ized section and content) DATE CREATED AUTHOR 10/13/2021 [facility] DATE CREATED AUTHOR AUTHOR'S ORGANIZ ATION 10/18/2021 [facility] DATE CREATED AUTHOR AUTHOR'S ORGANIZ ATION 12/20/2021 [facility] DATE CREATED AUTHOR AUTHOR'S ORGANIZ ATION 11/02/2024 [facility] DATE CREATED AUTHOR AUTHOR'S ORGANIZ ATION 11/07/2024 [facility] DATE CREATED AUTHOR AUTHOR'S ORGANIZ ATION 11/24/2024 [facility] EPIC DATE CREATED AUTHOR AUTHOR'S ORGANIZ ATION 12/14/2024 [facility] Care Teams (unrecognized sec tion and content) Team MemberRelationshipSpecialtyStart DateEnd Date Jermain Menchaca MD [address] [address] PCP - GeneralFamily Medicine07/04/22 Jermain Menchaca MD [address] [address] PCP - ACO [facility]07/14/22Team MemberRelationshipSpecialtyStart DateEnd Date Jermain Menchaca MD [address] [place] [address] [place] [address] [facility] - [facility]/22 Jermain Menchaca MD [address] [place] [address] [place] [address] PCP - ACO [facility]07/14/22Team MemberRelationshipSpecialtyStart DateEnd Date Jermain Menchaca MD [address] [place] [address] [place] [address] [facility]/04/22 Jermain Menchaca MD [address] [place] [address] [place] [address] PCP - ACO [facility]07/14/22Team MemberRelationshipSpecialtyStart DateEnd Date Jermain Menchaca MD [address] [place] [address] [place] [address] [facility]07/04/22 Jermain Menchaca MD [address] [place] [address] [place] [address] PCP - ACO [facility]07/14/22Team MemberRelationshipSpecialtyStart DateEnd Date Jermain Menchaca MD [address] [place] [address] [place] [address] [facility] - [facility]07/04/22 Jermain Menchaca MD [address] [place] [address] [place] [address] PCP - ACO [facility]07/14/22Team MemberRelationshipSpecialtyStart DateEnd Date Jermain Menchaca MD [address] [place] [address] [place] [address] [facility] - [facility]07/04/22 Jermain Menchaca MD [address] [place] [address] [place] [address] PCP - ACO [facility]07/14/22Team MemberRelationshipSpecialtyStart DateEnd Date Jermain Menchaca MD [address] [place] [address] [place] [address] [facility]07/04/22 Jermain Menchaca MD [address] [place] [address] [place] [address] PCP - ACO [facility]07/14/22Team MemberRelationshipSpecialtyStart DateEnd Date Jermain Menchaca MD [address] [place] [address] [place] [address] PCP - [facility]07/04/22 Jermain Menchaca MD [address] [place] [address] [place] [address] PCP - ACO [facility]07/14/22Team MemberRelationshipSpecialtyStart DateEnd Date Jermain Menchaca MD [address] [place] [address] [place] [address] [facility] - [facility]07/04/22 Jermain Menchaca MD [address] [place] [address] [place] [address] PCP - ACO [facility]07/14/22Team MemberRelationshipSpecialtyStart DateEnd Date Jermain Menchaca MD [address] [place] [address] [place] [address] PCP - GeneralFamily Medicine07/04/22 Jermain Menchaca MD [address] [place] [address] [place] [address] PCP - ACO [facility]07/14/22Team MemberRelationshipSpecialtyStart DateEnd Date Jermain Menchaca MD [address] [facility] [address] [place] [address] PCP - Generalmily Medicine07/04/22 Jermain Menchaca MD [address] [facility] [address] [place] [address] PCP - ACO [facility]07/14/22Team MemberRelationshipSpecialtyStart DateEnd Date Jermain Menchaca MD [address] [facility] [address] [place] [address] PCP - GeneralFami Medicine07/04/22 Jermain Menchaca MD [address] [facility] [address] [place] [address] PCP - ACO [facility]07/14/22Team MemberRelationshipSpecialtyStart DateEnd Date Jermain Menchaca MD [facility] [place] [address] PCP - GeneralFamily Medicine08/03/18Team MemberRelationshipSpecialtyStart DateEnd Date Jermain Menchaca MD [address] [facility] [address] [place] [address] [facility] - [facility]/04/22 Jermain Menchaca MD [address] [facility] [address] [place] [address] PCP - Pending sale to [facility]07/14/22Team MemberRelationshipSpecialtyStart DateEnd Date Jermain Menchaca MD [address] [facility] [address] [place] [address] PCP - [facility]07/04/22 Jermain Menchaca MD [address] [facility] [address] [place] [address] PCP - Pending sale to [facility]07/14/22 Reason for Visit (unrecogniz ed section and content) ReasonCommentsFollow-upReasonOnset KrqvIiizqbfxoslobllx30/04/2024ReasonComments Medicare Annual Wellness Visit SubsequentReasonCommentsPainReasonCommentsER Follow-up11/06 for strain of left hip FOR RECORDS PERTAINING TO PATIENTS WHO [...] BE BASED ON THE PRIMARY CLINICAL RECORDS. [facility] [employer] [facility]. provides no warranty or guarantee of the accuracy or completeness of information in this document.
--- NOTE | 2024-12-18 13:48 | PM.CN ---
Consult Note: HPI Data of Consult Patient: known to practice within the last 3 years Consult date: 12/18/24 Requesting Physician: Gracie Mcqueen NP Primary Care Provider: JERMAIN MENCHACA Consult Narrative Reason for consult: low back and hip pain Narrative: 89yom who presents for assessment. imaging reviewed, significant for severe stenosis at multiple levels in lumbar spine. has engaged in a series of provider directed home exercises >6 weeks, without benefit. noting increased low back pain over the last few months without fall/injury. Pain today 3/10 aching increasing at times to 7/10 with standing, walking, yardwork, bending, activity, standing on an uneven surface. Pt noting 50% improvement status post right L4-5 L5-S1 TFESI and bilateral SIJ injection. utilizing ASA and tylenol prn. cc:: CC: Gracie Mcqueen NP Review of Systems ROS Musculoskeletal Reports: back pain, extremity pain and joint pain PFSH PFSH Medical History Rotator cuff tear, left ?M75.102 - Unspecified rotator cuff tear or rupture of left shoulder, not specified as traumatic (ICD-10) Macular degeneration ?H35.30 - Unspecified macular degeneration (ICD-10) Carpal tunnel syndrome ?G56.00 - Carpal tunnel syndrome, unspecified upper limb (ICD-10) Hearing deficit ?H91.90 - Unspecified hearing loss, unspecified ear (ICD-10) Stroke ?I63.9 - Cerebral infarction, unspecified (ICD-10) High blood pressure ?I10 - Essential (primary) hypertension (ICD-10) Surgical History Hx of decompressive lumbar laminectomy ?Z98.890 - Other specified postprocedural states (ICD-10) 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 - Presence of left artificial shoulder joint (ICD-10) 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 lisinopril 10 mg tablet 10 mg PO DAILY 08/28/23 12/09/24 History Allergies Allergy/AdvReac Type Severity Reaction Status Date / Time No Known Drug Allergies Allergy Verified 12/09/24 12:00 Exam Constitutional Documenting provider has reviewed patient's vital signs: yes Common normals: no apparent distress, oriented x3, healthy appearing, alert and well nourished General appearance: cooperative HENMN Common normals: normocephalic, hearing grossly normal bilaterally and moist oral mucous membranes Head and scalp: normocephalic Eye Common normals: PERRL Pupil: PERRL Neck & C-Spine Common normals: full ROM General: normal visual inspection Chest Common normals: inspection of chest normal Respiratory Common normals: normal respiratory effort, no retractions and no use of accessory muscles Back & Pelvis Lumbar spine/lower back: straight leg raise negative bilaterally; no pain with ROM and no lumbar spinal tenderness Sacroiliac joints: SI joints normal Other: bilateral sij negative garry(patricks), gaenslens, thigh thrust, compression test sensation intact BLE strength 5/5 in BLE no pain with forward flexion, extension, rotation Neuro Common normals: oriented x3 Sensorium/orientation: alert Psych Common normals: mental status grossly normal, thought process normal, cooperative, affect normal, speech normal and activity/motor behavior normal Speech: normal speech Thought process: normal thought process Results Additional Findings Additional findings: If on a controlled substance or opioids, I have checked an [place] report on this patient and there are no aberrancies noted in the prescribing history.??If on a controlled substance or opioid a drug screen was completed and reviewed within the last year, and if there has not been a drug screen completed we ordered one today to monitor higher risk, state monitored pain medication use. As part of providing excellent, safe, comprehensive care, the following was completed at our patient's visit: 1. A medication reconciliation and review to ensure accurate knowledge of current/active medications, including asking our patients to inform us about any fniz-ylo-bfuswtn medications or herbal remedies/nutritional supplements/alternative remedies. 2. A review to specifically ensure our patients have had annual screening for screening for depression, screening for tobacco use, and screening for unhealthy alcohol use. For concerning screenings had a discussion with the patient, provided patient education, and recommended follow-up with primary care provider when appropriate. If patient noted with a risk of falling, they received education on strength, gait, and balance training to prevent future risk of falling. Portions of this note may have been carried over from the previous visit and updated as appropriate. Please note this office utilizes paper charting in addition to the electronic medical record. A list of current medications, vitals, and PMH is available there as the clinical staff outside of myself do not have access to [employer] charting during the clinic day operations. As part of providing quality comprehensive care the current medications, vitals, and PMH were reviewed in the paper chart. Assessment and Plan Assessment and Plan (1) Lumbar stenosis with neurogenic claudication: (2) Sacroiliitis: Plan The patient has had over 3 months of moderate to severe low back pain with functional impairment and inadequate response to conservative care including NSAIDS (unless there are contraindication such as concurrent blood thinners), multiple oral or topical pain medications, and home exercise program/physical therapy.? Patient has completed >6 weeks of guided home exercise program and/or formal physical therapy program without relief of their symptoms.? I have reviewed the imaging of the lumbosacral spine and no red flags were identified.? The Oswestry Disability Index was completed, and the patient scored a 26%.? continue otc ASA and tylenol prn continue HEP as tolerated defer scs trial not a candidate for lumbar mbbs/rfas at this time f/u 3 months, sooner if needed
== END 2024-12-18 13:22 | disposition home or self-care (01) ==
LOC: PM 13:21
PROVIDERS: PCP Family Medicine; Visit Provider Nurse Practitioner
DX: M48.062 Spinal stenosis, lumbar region with neurogenic claudication (principal); M46.1 Sacroiliitis, not elsewhere classified
CPT/HCPCS: G0463